=== PATIENT | male | born 1960 | race Caucasian/White ===

== ENCOUNTER 2023-10-16 10:16 | Outpatient (OUT) | payer OTHER, SELFPAY ==
--- NOTE | 2023-10-16 | ECG_ITS ---
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
== END 2023-10-16 10:17 | disposition home or self-care (01) ==
LOC: CARD 10:16
PROVIDERS: PCP Internal Medicine; Visit Provider Internal Medicine
DX: I48.20 Chronic atrial fibrillation, unspecified (principal); R06.02 Shortness of breath
CPT/HCPCS: 93005

== ENCOUNTER 2023-11-21 09:34 | Outpatient (OUT) | payer OTHER, SELFPAY ==
[2023-11-21 10:15] LABS: Basophils Percent Auto 0.4 % (0.2-2.0); Eosinophils Absolute Auto 0.1 10^3/uL (0.0-0.7); Eosinophils Percent Auto 1.3 % (0.9-7.0); Hematocrit 37.9 % (42.0-54.0); Hemoglobin 12.8 g/dL (14.0-18.0); Immature Granulocytes Abs Auto 0.02 10^3/uL (0.00-0.03); Immature Granulocytes Pct Auto 0.3 % (0.0-0.5); Lymphocytes Absolute Auto 1.3 10^3/uL (1.2-3.8); Lymphocytes Percent Auto 16.9 % (20.5-60.0); Mean Corpuscular HGB Conc 33.8 g/dL (29.9-35.2); Mean Corpuscular Hemoglobin 33.3 pg (25.9-34.0); Mean Corpuscular Volume 98.7 fL (80.0-94.0); Mean Platelet Volume 11.1 fL (9.5-13.5); Monocytes Absolute Auto 0.8 10^3/uL (0.3-0.8); Monocytes Percent Auto 10.1 % (1.7-12.0); Neutrophils Absolute Auto 5.6 10^3/uL (1.4-6.5); Platelet Count 168 10^3/uL (150-450); Red Blood Count 3.84 10^6/uL (4.70-6.10); Red Cell Distribution Width 12.7 % (11.0-15.0); White Blood Count 7.8 10^3/uL (4.0-11.0)
[2023-11-21 10:36] LABS: Microalbumin Urine Random 6.1 mg/dL (<=30.0)
[2023-11-21 10:38] LABS: Estimated Average Glucose 131 mg/dL; Glycohemoglobin A1C 6.2 % (4.5-6.2)
[2023-11-21 11:13] LABS: Alanine Aminotransferase 30 U/L (16-63); Albumin Level 3.9 g/dL (3.4-5.0); Alkaline Phosphatase 80 U/L (46-116); Anion Gap 13.8; Aspartate Amino Transferase 13 U/L (15-37); BUN Creatinine Ratio 14.8; Bilirubin Total 0.7 mg/dL (0.2-1.0); Calcium 9.4 mg/dL (8.5-10.1); Chloride 99 mmol/L (98-107); Chol HDL Ratio 3.3; Cholesterol 113 mg/dL (<=200); Estimated GFR (African America >60 (>=60); Estimated GFR (Non-African Ame >60 (>=60); Globulin 3.8 g/dL; Glucose 91 mg/dL (74-106); HDL Cholesterol 34 mg/dL (40-60); Potassium 4.8 mmol/L (3.5-5.1); Sodium 134 mmol/L (136-145); Thyroid Stimulating Hormone 2.274 uIU/mL (0.358-3.740); Total Protein 7.7 g/dL (6.4-8.2); Triglycerides 100 mg/dL (<=150)
[2023-11-21 11:16] LABS: Prostate Specific Antigen Scrn 0.39 ng/mL (<=4.00)
== END 2023-11-21 09:35 | disposition home or self-care (01) ==
LOC: LAB 09:36
PROVIDERS: PCP Internal Medicine; Visit Provider Internal Medicine
DX: Z00.00 Encounter for general adult medical examination without abnormal findings (principal)
CPT/HCPCS: 36415; 80053; 80061; 82043; 83036; 84443; 85025; G0103

== ENCOUNTER 2024-03-18 09:32 | Outpatient (OUT) | payer OTHER, SELFPAY ==
--- OUTSIDE RECORDS SUMMARY | 2024-03-18 09:49 | XMS_ITS | CCD ---
Author Organization [facility] Care Team Providers Care House Registry Rn Name Role Phone Bteoorlando Bonny Unavailable Bonny Raymundo Unavailable Malik MOLINA Attending Unavailable BALL PROVIDER, DELONTE Referring Unavaila ble DO Delonte Tejeda Primary Care Provider [phone] MD Deon Greene Attending Provider [phone] Delonte Tejeda Unavailable NIKHIL, DR BEST Consulting Unavailable BALL, DR BEST Primary Care Unavailable BALL, DR BEST Admitting Unavailable BALL, DR BEST Attending Unavailable BALL, DR BEST Consulting Unavailable BALL, DR BEST Admitting Unavailable BALL, DR BEST Attending Unavailable BALL, DR BEST Primary Care Unavailable BALL, DR BEST Attending Unavailable BALL, DR BEST Primary Care Unavailable BALL, DR BEST Admitting Unavailable BALL, DR BEST Consulting Unavailable BALL, DR BEST Attending Unavailable BALL, DR BEST Primary Care Unavailable BALL, DR BEST Admitting Unavailable BALL, DR BEST Consulting Unavailable BALL, DR BEST Primary Care Unavailable BALL, DR BEST Admitting Unavailable BALL, DR BEST Attending Unavailable BALL, DR BEST Consulting Unavailable REQUEST, DR RICARDO LISTED Admitting Unavaila ble REQUEST, DR RICARDO LISTED Attending Unavaila ble REQUEST, DR RICARDO LISTED Consulting Unavaila ble BALL, DR BEST Primary Care Unavailable REQUEST, NONE LISTED Attending Unavaila ble REQUEST, NONE LISTED Consulting Unavaila ble REQUEST, NONE LISTED Admitting Unavaila ble BALL, DR BEST Primary Care Unavailable REQUEST, DR RICARDO LISTED Admitting Unavaila ble REQUEST, NONE LISTED Attending Unavaila ble BALL, DR BEST Primary Care Unavailable BALL, DR BEST Consulting Unavailable REQUEST, NONE LISTED Admitting Unavaila ble REQUEST, NONE LISTED Attending Unavaila ble BALL, DR BEST Primary Care Unavailable DO Delonte Tejeda Primary Care Provider [phone] GABRIELLA Raymundo Attending Provider DO Delonte Tejeda Primary Care Provider DO Delonte Tejeda Attending Provider Delonte Tejeda Admitting Unavailable Delonte Tejeda Primary Care Unavailable Delonte Tejeda Attending Unavailable Bonny Raymundo Admitting Unavailable Bonny Raymundo Attending Unavailable Delonte Tejeda Primary Care Unavailable KOLBY AMBROCIO Attending Unavailable FELIPE FATIMA Attending Unavailable Medications Current Medications Medication Drug Class(es) Dates Sig (Normalized) Sig (Original) 0.5 ML tirzepatide 5 MG/ML Auto-Injector [Mounjaro] (11 sources) Start: 11-01-2022 inject 2.5 mg by subcutaneous injection every week Mounjaro 2.5 MG/0.5ML 2.5mg Subcutaneous weekly for 28 days Oct, Active 3 ML semaglutide 1.34 MG/ML Pen Injector [Ozempic] (12 sources) Start: 01-29-2023 inject 1 mg by subcutaneous injection every week Ozempic (1 MG/DOSE) 4 MG/3ML 1 MG Subcutaneous weekly Jan, Active Start: 01-29-2023 inject 1 mg by subcu taneous injection every week Ozempic (1 MG/DOSE) 4 MG/3ML 1 MG Subcutaneous weekly for 90 days Jan, Active allopurinol 300 mg oral tablet (20 sources) Xanthine Oxidase Inhibitor Start: 06-27-2021 take 300 mg by mouth once daily Allopurinol Active 300 MG PO Daily June 27, 2021 12:00am amiodarone hydrochloride 200 mg oral tablet (1 source) Antiarrhythmic Start: 03-12-2024 take 200 mg by mouth once daily Amiodarone Active 200 MG PO Daily March 12, 2024 12:00am amLODIPine 5 mg oral tablet (20 sources) Dihydropyridine Calcium Channel Ezequiel Start: 02-23-2024 take 1 tablet by mouth once daily Amlodipine Active 0 .ROUTE .COMPLEX 90 February 23, 2024 1:45pm TAKE 1 TABLET BY MOUTH DAILY Start: 06-27-2021 End: 02-23-2024 take 5 mg by mouth once daily Amlodipine Discontinued 5 MG PO Daily June 27, 2021 12:00am February 23, 2024 1:45pm carvedilol 25 mg oral tablet (20 sources) alpha-Adrenergic Ezequiel, beta-Adrenergic Ezequiel Start: 03-12-2024 take 37.5 mg by mouth twice daily Carvedilol Active 37.5 MG PO Twice daily March 12, 2024 9:44am Start: 03-12-2024 End: 03-12-2024 take 25 mg by mouth twice daily Carvedilol Discontinue d 25 MG PO Twice daily March 12, 2024 9:01am March 12, 2024 9:45am Start: 01-27-2024 End: 03-12-2024 take 37.5 mg by mouth every twelve hours Carvedilol Discontinued 37.5 MG PO Every 12 hours 270 90 January 27, 2024 5:57pm March 12, 2024 9:04am Start: 01-06-2024 End: 01-27-2024 take 1 tablet by mouth twice daily Carvedilol Discontinued 0 .ROUTE .COMPLEX 180 January 06, 2024 4:03pm January 27, 2024 5:58pm TAKE ONE TABLET BY MOUTH TWICE A DAY Start: 12-18-2023 End: 01-06-2024 take 37.5 mg by mouth twice daily Carvedilol Discontinued 37.5 MG PO Twice daily 90 December 18, 2023 7:57pm January 06, 2024 4:03pm Start: 06-27-2021 End: 12-18-2023 take 25 mg by mouth twice daily Carvedilol Discontinue d 25 MG PO Twice daily June 27, 2021 12:00am December 18, 2023 7:58pm take 1 tablet by eriberto th twice daily Carvedilol 25 MG TAKE ONE TABLET BY MOUTH TWICE A DAY Active take 1 tablet by eriberto th every twelve hours Carvedilol 12.5 MG 1 tablet with food Orally Twice a day for 30 day(s) Active Co-Enzyme Q-10 100 MG (20 sources) take 1 capsule by mouth once daily Co-Enzyme Q-10 100 MG 1 capsule with a meal Orally Once a day for 30 day(s) Active etodolac 500 mg oral tablet (13 sources) Nonsteroidal Anti-inflammatory Drug Start: take 1 tablet by mouth every twelve hours Etodolac 500 MG 1 tablet with food Orally Twice a day for 15 days Dec, Active furosemide 40 mg oral tablet (20 sources) Loop Diuretic Start: take 1 tablet by mouth once daily Furosemide Active 0 .ROUTE .COMPLEX 90 February 23, 2024 1:45pm TAKE 1 TABLET BY MOUTH DAILY Start: 06-27-2021 End: 02-23-2024 take 40 mg by mouth once daily Furosemide Discontinued 40 MG PO Daily June 27, 2021 12:00am February 23, 2024 1:45pm 3 ml insulin glargine 100 un t/ml pen injector (20 sources) Insulin Analog Insulin Glargine Solostar 100 unit/mL INJECT 50 UNITS UNDER THE SKIN TWO TIMES A DAY for 90 Active inject 50 [IU] by enciso bcutaneous injection once daily Lantus 100 UNIT/ML 50 units Subcutaneous once a day Active inject 50 [IU] by enciso bcutaneous injection twice daily Lantus 100 UNIT/ML 50 units Subcutaneous twice daily Active inject 0.1 mL by sub cutaneous injection once daily Lantus 100 UNIT/ML 0.1 ml Subcutaneous Once a day Active Insulin Glargine (Lantus U-100 Insulin) 100 unit/mL Solution (4 sources) Start: 06-27-2021 inject 50 [IU] by subcutaneous injection twice daily Insulin Glargine (Lantus U-100 Insulin) 100 unit/mL Solution Active 50 UNIT SUBCUT Twice daily June 27, 2021 12:00am Start: 06-27-2021 inject 50 [IU] by enciso bcutaneous injection twice daily Insulin Glargine (Lantus U-100 Insulin) 100 unit/mL Solution Active 50 UNIT SUBCUT Twice daily June 26, 2021 11:00pm lisinopril 40 mg oral tablet (20 sources) Angiotensin Converting Enzyme Inhibitor Start: 06-27-2021 take 40 mg by mouth once daily Lisinopril Active 40 MG PO Daily June 27, 2021 12:00am ozempic (1 mg/dose) 4 mg/3ml solution pen-injector (5 sources) Start: 01-29-2023 inject 1 mg by subcutaneous injection every week Ozempic (1 MG/DOSE) 4 MG/3ML 1 MG Subcutaneous weekly Jan, Active potassium chloride 20 meq extended release oral tablet (20 sources) Start: 06-27-2021 take 20 mEq by mouth once daily Potassium Chloride Active 20 MEQ PO Daily June 27, 2021 12:00am Potassium Chlori de 20 MEQ 1 packet Orally Once a day for 30 day(s) Active pravastatin sodium 40 mg oral tablet (20 sources) HMG-CoA Reductase Inhibitor Start: 02-23-2024 take 1 tablet by mouth once daily in the evening Pravastatin Active 0 .ROUTE .COMPLEX February 23, 2024 1:45pm TAKE ONE TABLET BY MOUTH EVERY EVENING Start: 06-27-2021 End: 02-23-2024 take 40 mg by mouth once daily Pravastatin Discontinue d 40 MG PO Daily June 27, 2021 12:00am February 23, 2024 1:45pm rivaroxaban 20 mg oral tablet (20 sources) Factor Xa Inhibitor Start: 06-27-2021 take 1 tablet by mouth once daily Rivaroxaban (Xarelto) 20 mg Tablet Active 20 MG PO Daily June 27, 2021 12:00am Xarelto Active 0.25 mg, 0.5 mg dose 1.5 ml semaglutide 1.34 mg/ml pen injector (20 sources) Start: 11-25-2022 Ozempic (0.25 or 0.5 MG/DOSE) 2 MG/1.5ML 0.25mg Subcutaneous weekly for 28 days Nov, Active Ozempic (0.25 or 0.5 MG/DOSE) 2 MG/1.5ML 0.5mg Subcutaneous weekly for 28 days Active Semaglutide (2 sources) Start: 02-06-2024 inject 1 mg by subcutaneous injection every week Semaglutide (Ozempic) 1 mg/dose (4 mg/3 mL) pen injector Active 1 MG SUBCUT every week February 06, 2024 5:39pm Start: 02-04-2024 End: 02-06-2024 inject 1 mg by subcutaneous injection every week Semaglutide (Ozempic) 1 mg/dose (4 mg/3 mL) pen injector Discontinued 1 MG SUBCUT every week February 04, 2024 12:00am February 06, 2024 5:39pm tiZANidine 2 mg oral tablet (20 sources) Central alpha-2 Adrenergic Agonist Start: 01-09-2023 take 1 tablet by mouth once at bedtime as needed for pain tiZANidine HCl 2 MG 1 tablet as needed Orally q HS as needed for pain and stiffness for 14 days Jul, Active ubiquinol 100 mg oral capsule (1 source) Start: 03-12-2024 take 1 capsule by mouth once daily Coq10 (Ubiquinol) (Qunol Ilir Coq10) 100 mg capsule Active 100 MG PO Daily March 12, 2024 12:00am Vitamin B-12 1000 MCG (4 sources) take 1 tablet by mouth once daily Vitamin B-12 1000 MCG 1 tablet Orally Once a day for 30 day(s) Active vitamin b12 1 mg oral tablet (20 sources) Vitamin B12 take 1 tablet by mouth every twenty-four hours Vitamin B-12 1000 MCG 1 tablet Orally Once a day for 30 day(s) Active take 1 tablet by eriberto th every twenty-four hours Vitamin B-12 1000 MCG 1 tablet Orally Once a day for 30 day(s) Active Vitamin D3 2000 UNIT (20 sources) Vitamin D3 2000 UNIT as directed Orally Active warfarin sodium 10 mg oral tablet (1 source) Vitamin K Antagonist take 1 tablet by mouth every twenty-four hours Warfarin Sodium 10 MG 1 tablet Orally Once a day for 30 day(s) Active Completed/Discontinued Medications Medication Drug Class(es) Dates Sig (Normalized) Sig (Original) flecainide acetate 100 mg oral tablet (11 sources) Antiarrhythmic Start: 06-27-2021 End: 10-07-2022 take 100 mg by mouth every twelve hours Flecainide Discontinued 100 MG PO Q12H June 27, 2021 12:00am October 07, 2022 9:41am metoprolol tartrate 50 mg oral tablet (9 sources) beta-Adrenergic Ezequiel Start: 06-27-2021 End: 10-07-2022 take 50 mg by mouth twice daily Metoprolol Tartrate Discontinued 50 MG PO Twice daily June 27, 2021 12:00am October 07, 2022 9:41am SITagliptin 100 mg oral tablet (20 sources) Dipeptidyl Peptidase 4 Inhibitor Start: 06-27-2021 End: 02-04-2024 take 1 tablet by mouth once daily Sitagliptin Phosphate (Januvia) 100 mg Tablet Discontinued 100 MG PO Daily June 27, 2021 12:00am February 04, 2024 8:14pm Problems Active Problems Problem Classification Problem Date Documented Date Episodic/Chronic Allergic reactions (20 sources) Idiopathic urticaria; Translations: [Idiopathic urticaria] Onset: 01-04-2016 Episodic Cardiac dysrhythmias (20 sources) Paroxysmal atrial fibrillation; Translations: [Paroxysmal atrial fibrillation] 03-10-2024 Chronic Deficiency and other anemia (20 sources) Anemia; Translations: [Anemia, unspecified] Episodic Diabetes mellitus with complications (20 sources) Type 2 diabetes mellitus; Translations: [Type 2 diabetes mellitus with hyperglycemia] Onset: 09-05-2015 Chronic Diabetes mellitus without complication (7 sources) Type 2 diabetes mellitus without complication; Translations: [Diabetes mellitus without mention of complication, type II or unspecified type, not stated as uncontrolled] Onset: 12-16-2023 Chronic Disorders of lipid metabolism (20 sources) Pure hypercholesterolemia; Translations: [Familial hypercholesterolemia] Onset: 01-04-2016 Chronic Essential hypertension (20 sources) Essential hypertension; Translations: [Essential (primary) hypertension] Onset: 12-17-2023 Chronic Fluid and electrolyte disorders (20 sources) Hypokalemia; Translations: [Hypokalemia] Episodic Gout and other crystal arthropathies (20 sources) Idiopathic gout, right wrist; Translations: [Primary chronic gout without tophus of wrist] Chronic Hyperplasia of prostate (5 sources) Benign prostatic hypertrophy with outflow obstruction; Translations: [Hypertrophy (benign) of prostate with urinary obstruction and other lower urinary tract symptoms [LUTS]] Onset: 06-04-2017 Chronic Joint disorders and dislocations; trauma-related (5 sources) Derangement of anterior horn of medial meniscus; Translations: [Derangement of anterior horn of medial meniscus] Onset: 08-08-2016 Chronic Osteoarthritis (20 sources) Bilateral arthritis of knees; Translations: [Bilateral primary osteoarthritis of knee] Chronic Other aftercare (20 sources) Long-term current use of insulin; Translations: [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 service 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] Episodic Other aftercare (6 sources) 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 service 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; Translations: [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 service 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] Onset: 12-16-2023 Episodic Other and unspecified benign neoplasm (20 sources) History of polyp of colon; Translations: [Personal history of colonic polyps] Episodic Other and unspecified benign neoplasm (20 sources) Benign neoplasm of colon; Translations: [Benign neoplasm of colon, unspecified] Episodic Other and unspecified benign neoplasm (3 sources) Benign neoplasm of colon, unspecified; Translations: [Tubulovillous adenoma of colon] Episodic Other diseases of veins and lymphatics (20 sources) Peripheral venous insufficiency; Translations: [Venous insufficiency (chronic) (peripheral)] Episodic Other diseases of veins and lymphatics (7 sources) Venous insufficiency (chronic) (peripheral); Translations: [Venous (peripheral) insufficiency, unspecified] Episodic Other diseases of veins and lymphatics (1 source) Venous insufficiency of leg; Translations: [Venous insufficiency (chronic) (peripheral)] 03-10-2024 Episodic Other non-traumatic joint disorders (2 sources) Pain in left hip Episodic Other nutritional; endocrine; and metabolic disorders (20 sources) Morbid obesity; Translations: [Morbid (severe) obesity due to excess calories] Chronic Other nutritional; endocrine; and metabolic disorders (2 sources) Morbid (severe) obesity due to excess calories Chronic Other nutritional; endocrine; and metabolic disorders (13 sources) Severe obesity; Translations: [Morbid (severe) obesity due to excess calories] Chronic Other nutritional; endocrine; and metabolic disorders (18 sources) Body mass index 40+ - severely obese; Translations: [Body mass index (BMI) 45.0-49.9, adult] Onset: 01-04-2016 Chronic Other nutritional; endocrine; and metabolic disorders (5 sources) Obesity; Translations: [Obesity, unspecified] Chronic Other screening for suspected conditions (not mental disorders or infectious disease) (2 sources) Encounter for screening for malignant neoplasm of prostate Episodic Other upper respiratory infections (1 source) Acute upper respiratory infection, unspecified Episodic Residual codes; unclassified (20 sources) Obstructive sleep apnea syndrome; Translations: [Obstructive sleep apnea (adult) (pediatric)] Onset: 06-04-2022 Chronic Residual codes; unclassified (13 sources) Obstructive sleep apnea (adult) (pediatric); Translations: [Obstructive sleep apnea (adult)(pediatric)] Onset: 06-05-2022 Chronic Spondylosis; intervertebral disc disorders; other back problems (20 sources) Lumbar spondylosis; Translations: [Spondylosis without myelopathy or radiculopathy, lumbar region] Onset: 11-29-2016 Chronic Sprains and strains (11 sources) Neck sprain; Translations: [Strain of muscle, fascia and tendon at neck level, initial encounter] Onset: 08-11-2017 Episodic Unclassified (5 sources) Longstanding persistent atrial fibrillation; Translations: [Longstanding persistent atrial fibrillation] Onset: 12-17-2023 Unclassified (1 source) Chronic atrial fibrillation, unspecified; Translations: [Chronic atrial fibrillation, unspecified] Onset: 10-17-2023 Unclassified (1 source) Pain in left hip; Translations: [Pain in left hip] Onset: 06-05-2023 Viral infection (20 sources) Herpes zoster with complication; Translations: [Zoster with other complications] Episodic Past or Other Problems Problem Classification Problem Date Documented Da te Episodic/Chronic Cardiac dysrhythmias (5 sources) Palpitations; Translations: [Palpitations] Onset: 05-13-2014 Episodic Deficiency and other anemia (4 sources) Anemia, unspecified; Translations: [ANEMIA UNSPECIFIED] Onset: 03-15-2022 Episodic Immunizations and screening for infectious disease (1 source) Contact with and (suspected) exposure to other viral communicable diseases Onset: 08-12-2021 Resolved: 08-12-2021 Episodic Joint disorders and dislocations; trauma-related (5 sources) Current tear of medial cartilage AND/OR meniscus of knee; Translations: [Peripheral tear of medial meniscus, current injury, right knee, initial encounter] Onset: 01-14-2018 Episodic Joint disorders and dislocations; trauma-related (5 sources) Current tear of medial cartilage AND/OR meniscus of knee; Translations: [Peripheral tear of medial meniscus, current injury, left knee, initial encounter] Onset: 01-14-2018 Episodic Other and unspecified benign neoplasm (5 sources) Lipoma of skin; Translations: [Lipoma of other skin and subcutaneous tissue] Onset: 05-17-2015 Episodic Other ear and sense organ disorders (5 sources) Impacted cerumen; Translations: [Impacted cerumen] Onset: 06-04-2017 Episodic Other non-traumatic joint disorders (10 sources) Arthralgia of the lower leg; Translations: [Pain in left knee] Onset: 08-08-2016 Episodic Residual codes; unclassified (5 sources) Insomnia; Translations: [Insomnia, unspecified] Onset: 08-01-2014 Episodic Screening and history of mental health and substance abuse codes (5 sources) History of tobacco use; Translations: [Personal history of tobacco use, presenting hazards to health] Onset: 12-05-2017 Episodic Spondylosis; intervertebral disc disorders; other back problems (11 sources) Pain in thoracic spine; Translations: [Low back pain] Onset: 07-24-2015 Episodic Unclassified (1 source) Cough R05.9 Onset: 05-19-2022 Resolved: 05-19-2022 Unclassified (4 sources) Chronic atrial fibrillation, unspecified Viral infection (1 source) COVID-19 Onset: 05-19-2022 Resolved: 05-19-2022 Results Test Name Value Interpretation Reference Range Facility Office Visiton 01-20-2024 Follow-up visit [id number] Salomón Rush 1960 M Date Provider Department Center 01/20/2024 FELIPE COWAN DUDLEY Pérez Family History Problem Relation Age of Onset Cancer Mother Heart disease Mother Cancer Father Family Status - Relation Status Age at Mother Father Level of Service:50732 ID OFFICE/OUTPATIENT NEW MODERATE MDM 45 MINUTES Reason for Visit and Comments: Follow-up [504952] Normal [facility] 29on 12-17-2023 29 Addended by: BETSY PABLO on: 12/17/2023 10:20 AM Modules accepted: Orders Normal [facility] Office Visiton 12-17-2023 Follow-up visit [id number] Salomón Rush 1960 M Date Provider Department Center 12/17/2023 KOLBY ROSS DUDLEY Pérez Family History Problem Relation Age of Onset Cancer Mother Heart disease Mother Cancer Father Family Status - Relation Status Age at Mother Father Level of Service:[id number] ID OFFICE/OUTPATIENT NEW MODERATE MDM 45 MINUTES Normal [facility] ECH echo transthoracicon ECH echo transthoracic [facility] [place] [address] Echocardiogram Signed Patient: Salomón Rush MR#: [id number] 90 : 1960 Acct:[id number] Age/Sex: 62 / M ADM Date: 10/17/23 Loc: Room: Type: [facility] Attending Dr: Delonte Tejeda DO Ordering Provider: Delonte Tejeda DO Date of Service: 10/17/23/ ECH/ECH echo transthoracic: Chronic Afib. SOB. Copies to: DO Ortiz Coronado MD Weight: 320 lb Performed By: Patricia Gillis RDCS BSA: 2.5 m2 BP: 142/82 mmHg Reason For Study: Chronic Afib. SOB. History: HTN. HLD. DM. ELENITA. Afib. Family history: Mother CABG, Father-aortic aneursym Interpretation Summary The left ventricular size and thickness are normal. The LV ejection fraction is low normal . A variety of Doppler measurements indicate pseudonormalized left ventricular relaxation, which is associated with grade II/IV or mild to moderate diastolic dysfunction. No regional wall motion abnormalities noted. The left atrial volume is moderately increased. The aortic valve is mildly sclerotic Trace aortic regurgitation. There is mild to moderate mitral regurgitation. Doppler findings do not suggest pulmonary hypertension. The patient was in atrial fibrillation through out the study. There is no comparison study available. Procedure/Quality: A two-dimensional transthoracic echocardiogram with color flow, Doppler and injection of contrast agent Definity was performed. The study was technically limited with all images being suboptimal in quality. Images were not obtained from all of the standard acoustic windows due to the limited scope of the study. Left Ventricle: The left ventricular size and thickness are normal. The LV ejection fraction is low normal . A variety of Doppler measurements indicate pseudonormalized left ventricular relaxation, which is associated with grade II/IV or mild to moderate diastolic dysfunction. No regional wall motion abnormalities noted. Left Atrium: The left atrial volume is moderately increased. Right Atrium: The right atrium appears normal in size. Right Ventricle: The right ventricular size, thickness and function are normal. Aortic Valve: The aortic valve is mildly sclerotic. The aortic valve opens well. No hemodynamically significant valvular aortic stenosis. Trace aortic regurgitation. Mitral Valve: There is mild mitral annular calcification. The mitral valve is mildly sclerotic. There is mild to moderate mitral regurgitation. Tricuspid Valve: The tricuspid valve is normal in structure and function. Doppler findings do not suggest pulmonary hypertension. Pulmonic Valve: The pulmonic valve is not well visualized. Arteries: The aortic root is normal size. The aortic arch was visualized and no abnormalities were seen. Pericardium/Pleura: No pericardial effusion seen. There is no pleural effusion. IVC/Hepatic Viens: The inferior vena cava is normal in size, with a normal collapsibility index. Measurements with Normals IVSd: 1.0 cm (0.7-1.1 cm)LVIDd: 5.1 cm (3.7-5.4 cm) LVPWd: 0.97 cm (0.7-1.1 cm)LVIDs: 3.3 cm (2.3-3.6 cm) LA dimension: 5.0 cm (2.3-4.0 cm)Ao root diam: 2.6 cm(2.0-3.6 cm) asc Aorta Diam: 3.0 cm(2.1-3.4cm) Doppler with Normals LV V1 max: 157.5 cm/sec (0.7-1.7m/s)MV E max thomas: 103.0 cm/sec(0.8-1.3m/s) MV A max thomas: 34.6 cm/sec(0.0-0.0m/s) MV E/A: 3.0 (<1.5) MMode/2D Measurements Calculations RVDd: 4.5 cm FS: 35.4 % Ao root area: LVOT diam: 1.7 cm TAPSE: 1.9 cm EDV(Teich): 5.5 cm2 LVOT area: 2.2 cm2 RV S Thomas: 123.7 ml 14.4 cm/sec ESV(Teich): 44.0 ml EF(Teich): 64.5 % __ LVLd ap4: 8.4 cm SV(MOD-sp4): LAV(MOD-sp4): LA A2 area: 20.3 cm2 EDV(MOD-sp4): 49.6 ml 58.8 ml 79.4 ml LAV(MOD-sp2): LA A4 area: 22.1 cm2 LVLs ap4: 7.3 cm 55.7 ml LA length (vol): ESV(MOD-sp4): 6.7 cm 29.8 ml LA vol: 56.9 ml EF(MOD-sp4): 62.5 % LA vol index: 22.3 ml/m2 Doppler Measurements Calculations MV dec time: E/E' lat: 8.9 MV dec slope: Ao V2 max: 0.24 sec E/E' med: 10.9 146.6 cm/sec 423.3 cm/sec2 Ao max P.6 mmHg Ao mean P.7 mmHg Ao V2 mean: 102.7 cm/sec Ao V2 VTI: 24.1 cm TEE(I,D): 2.8 cm2 TEE(V,D): 2.3 cm2 __ LV V1 max PG: RAP systole: 9.9 mmHg 8.0 mmHg LV V1 mean P.5 mmHg LV V1 mean: 112.5 cm/sec LV V1 VTI: 30.6 cm Transcribed By: SCV Performed At: 10/17/23 0746 Signed By: Ortiz Singletary MD 10/17/23 1304 Normal [facility] XR hip LT min 2V(w/wo pelvis )*on 06-05-2023 XR hip LT min 2V(w/wo pelvis)* [facility] [place] [address] XRay Report Signed Patient: Salomón Rush MR#: [id number] 90 : 1960 Acct:[id number] Age/Sex: 62 / M ADM Date: 06/05/23 Loc: [facility] Room: Type: [facility] Attending Dr: Bonny Raymundo APRN Copies to: Bonny Raymundo APRN Ordering Provider: Bonny Raymundo APRN Date of Service: 06/05/23 XR/XR hip LT min 2V(w/wo pelvis)*: Left hip pain XR hip LT min 2V(w/wo pelvis)* 06/05/2023 11:57 AM SIGNS AND SYMPTOMS: Left hip pain PROTOCOL: Frontal radiograph of the pelvis with frontal and frog-leg views of the left hip COMPARISON: None FINDINGS: There is mild narrowing of the joint spaces of the hips. Degenerative changes are noted in the lumbar spine and sacroiliac joints. The bony ring of the pelvis is intact. There is no fracture or dislocation. Vascular calcifications are present. XR/XR hip LT min 2V(w/wo pelvis)* IMPRESSION: No fracture or dislocation. Degenerative changes are noted in the lumbar spine and sacroiliac joints. Impression dictated by: Calvin Thibodeaux M.D.06/05/2023 12:25 PM Dictation Location: [facility] Transcribed By: [facility] 06/05/23 1225 Dictated By: Calvin Thibodeaux II, MD 06/05/23 1223 Signed By: 06/05/23 1225 Normal [facility] XR hip LT min 2V(w/wo pelvis)* [facility] [employer] Other XR hip LT min 2V(w/wo pelvis)* [facility] [place] [employer] Other XR hip LT min 2V(w/wo pelvis)* [address] [place] [address] [employer] Other XR hip LT min 2V(w/wo pelvis)* [place] [address] [employer] Other XR hip LT min 2V(w/wo pelvis)* XRay Report [employer] Other XR hip LT min 2V(w/wo pelvis)* Signed [employer] Other XR hip LT min 2V(w/wo pelvis)* Patient: Salomón Rush MR#: [id number] [employer] Other XR hip LT min 2V(w/wo pelvis)* 90 [employer] Other XR hip LT min 2V(w/wo pelvis)* : 1960 Acct:[id number] [employer] Other XR hip LT min 2V(w/wo pelvis)* Age/Sex: 62 / M ADM Date: 06/05/23 [employer] Other XR hip LT min 2V(w/wo pelvis)* Loc: XDUCLY Room: Type: [facility] [employer] Other XR hip LT min 2V(w/wo pelvis)* Attending Dr: Bonny Raymundo APRN [employer] Other XR hip LT min 2V(w/wo pelvis)* Copies to: Bonny RaymundoGABRIELLA [employer] Other XR hip LT min 2V(w/wo pelvis)* Ordering Provider: Bonny Raymundo APRN [employer] Other XR hip LT min 2V(w/wo pelvis)* Date of Service: 06/05/23 [employer] Other XR hip LT min 2V(w/wo pelvis)* XR/XR hip LT min 2V(w/wo pelvis)*: Left hip pain [employer] Other XR hip LT min 2V(w/wo pelvis)* XR hip LT min 2V(w/wo pelvis)* 06/05/2023 11:57 AM [employer] Other XR hip LT min 2V(w/wo pelvis)* SIGNS AND SYMPTOMS: Left hip pain [employer] Other XR hip LT min 2V(w/wo pelvis)* PROTOCOL: Frontal radiograph of the pelvis with frontal and frog-leg views of the left hip [employer] Other XR hip LT min 2V(w/wo pelvis)* COMPARISON: None [employer] Other XR hip LT min 2V(w/wo pelvis)* FINDINGS: [employer] Other XR hip LT min 2V(w/wo pelvis)* There is mild narrowing of the joint spaces of the hips. Degenerative changes are noted in the [employer] Other XR hip LT min 2V(w/wo pelvis)* lumbar spine and sacroiliac joints. The bony ring of the pelvis is intact. There is no fracture or [employer] Other XR hip LT min 2V(w/wo pelvis)* dislocation. Vascular calcifications are present. [employer] Other XR hip LT min 2V(w/wo pelvis)* XR/XR hip LT min 2V(w/wo pelvis)* [employer] Other XR hip LT min 2V(w/wo pelvis)* IMPRESSION: [employer] Other XR hip LT min 2V(w/wo pelvis)* No fracture or dislocation. [employer] Other XR hip LT min 2V(w/wo pelvis)* Degenerative changes are noted in the lumbar spine and sacroiliac joints. [employer] Other XR hip LT min 2V(w/wo pelvis)* Impression dictated by: Calvin Thibodeaux M.D.06/05/2023 12:25 PM [employer] Other XR hip LT min 2V(w/wo pelvis)* Dictation Location: [facility] [employer] Other XR hip LT min 2V(w/wo pelvis)* Transcribed By: NORMA 06/05/23 [facility] [employer] Other XR hip LT min 2V(w/wo pelvis)* Dictated By: Calvin Thibodeaux II, MD 06/05/23 [facility] [employer] Other XR hip LT min 2V(w/wo pelvis)* Signed By: [employer] Other XR hip LT min 2V(w/wo pelvis)* 06/05/23 1225 [employer] Other CBC AUTO DIFFon 02-21-2023 BASO # 0.1 103/ul Normal 0.0-0.1 [facility] Comment on above: Performed By: #### L IPID, T4, TSH, CMP #### [facility] [address] [address] [address] Rena Barone Basophils/100 WBC (Bld) 0.4 % Normal 0.2-2.0 [facility] Comment on above: Performed By: #### L IPID, T4, TSH, CMP #### [facility] [address] [place] [address] Dr. Rena Barone EO # 0.4 103/ul Normal 0.0-0.7 [facility] Comment on above: Performed By: #### L IPID, T4, TSH, CMP #### [facility] [address] [place] [address] Dr. Rena Barone Eosinophils/100 WBC (Bld) 3.1 % Normal 0.9-7.0 [facility] Comment on above: Performed By: #### L IPID, T4, TSH, CMP #### [facility] [address] [place] [address] Dr. Rena Barone Erythrocyte distribution width (RBC) [Ratio] 12.5 % Normal 11.0-15.0 [facility] Comment on above: Performed By: #### L IPID, T4, TSH, CMP #### [facility] [address] [place] [address] Dr. Rena Barone Hematocrit (Bld) [Volume fraction] 38.9 % Critically low 42.0-54.0 [facility] Comment on above: Performed By: #### L IPID, T4, TSH, CMP #### [facility] [address] [place] [address] Dr. Rena Barone Hemoglobin (Bld) [Mass/Vol] 13.2 g/dL Critically low 14.0-18.0 [facility] Comment on above: Performed By: #### L IPID, T4, TSH, CMP #### [facility] [address] [place] [address] Dr. Rena Barone IG # 0.05 10e3/ul Critically high 0.00-0.03 [facility] Comment on above: Performed By: #### L IPID, T4, TSH, CMP #### [facility] [address] [place] [address] Dr. Rena Barone IG % 0.4 % Normal 0.0-0.5 [facility] Comment on above: Performed By: #### L IPID, T4, TSH, CMP #### [facility] [address] [place] [address] Dr. Rena Barone LYMPH # 3.2 103/ul Normal 1.2-3.8 [facility] Comment on above: Performed By: #### L IPID, T4, TSH, CMP #### [facility] [address] [place] [address] Dr. Rena Barone Lymphocytes/100 WBC (Bld) 28.6 % Normal 20.5-60.0 [facility] Comment on above: Performed By: #### L IPID, T4, TSH, CMP #### [facility] [address] [place] [address] Dr. Rena Barone MANUAL DIFF REQ NO Normal [facility] Comment on above: Performed By: #### L IPID, T4, TSH, CMP #### [facility] [address] [place] [address] Dr. Rena Barone MCH (RBC) [Entitic mass] 33.7 pg Normal 25.9-34.0 [facility] Comment on above: Performed By: #### L IPID, T4, TSH, CMP #### [facility] [address] [place] [address] Dr. Rena Barone MCHC (RBC) [Mass/Vol] 33.9 g/dL Normal 29.9-35.2 [facility] Comment on above: Performed By: #### L IPID, T4, TSH, CMP #### [facility] [address] [place] [address] Dr. Rena Barone MCV (RBC) [Entitic vol] 99.2 fL Critically high 80.0-94.0 [facility] Comment on above: Performed By: #### L IPID, T4, TSH, CMP #### [facility] [address] [place] [address] Dr. Rena Barone MONO # 1.0 103/ul Critically high 0.3-0.8 [facility] Comment on above: Performed By: #### L IPID, T4, TSH, CMP #### [facility] [address] [place] [address] Dr. Rena Barone Monocytes/100 WBC (Bld) 8.8 % Normal 1.7-12.0 [facility] Comment on above: Performed By: #### L IPID, T4, TSH, CMP #### [facility] [address] [address] [address] Rena Barone NEUT # 6.6 103/ul Critically high 1.4-6.5 [facility] Comment on above: Performed By: #### L IPID, T4, TSH, CMP #### [facility] [address] [place] [address] Dr. Rena Barone Neutrophils/100 WBC (Bld) 58.7 % Normal 43.0-75.0 [facility] Comment on above: Performed By: #### L IPID, T4, TSH, CMP #### [facility] [address] [place] [address] Dr. Rena Barone Platelet mean volume (Bld) [Entitic vol] 11.2 fL Normal 9.5-13.5 [facility] Comment on above: Performed By: #### L IPID, T4, TSH, CMP #### [facility] [address] [place] [address] Dr. Rena Barone PLT 202 103/ul Normal 150-450 [facility] Comment on above: Performed By: #### L IPID, T4, TSH, CMP #### [facility] [address] [place] [address] Dr. Rena Barone RBC 3.92 106/ul Critically low 4.70-6.10 [facility] Comment on above: Performed By: #### L IPID, T4, TSH, CMP #### [facility] [address] [place] [address] Dr. Rena Barone WBC 11.3 103/ul Critically high 4.0-11.0 [facility] Comment on above: Performed By: #### L IPID, T4, TSH, CMP #### [facility] [address] [place] [address] Dr. Rena Barone LIPID PROFILEon 02-21-2023 CHOL-HDL RATIO NORM SEE BELOW Normal [facility] Comment on above: Result Comment: 3.3 - 4.4 LOW RISK 4.4 - 7.1 AVERAGE RISK 7.1 - 11.0 MODERATE RISK >11.0 HIGH RISK Performed By: #### L IPID, T4, TSH, CMP #### [facility] [address] [place] [address] Dr. Rena Barone Cholesterol [Mass/Vol] 127 mg/dL Normal <=200 [facility] Comment on above: Performed By: #### L IPID, T4, TSH, CMP #### [facility] [address] [place] [address] Dr. Rena Barone Cholesterol in HDL [Mass/Vol] 24 mg/dL Critically low 40-60 [facility] Comment on above: Performed By: #### L IPID, T4, TSH, CMP #### [facility] [address] [place] [address] Dr. Rena Barone Cholesterol in LDL [Mass/Vol] 58.4 mg/dL Normal [facility] Comment on above: Performed By: #### L IPID, T4, TSH, CMP #### [facility] [address] [address] [address] Rena Barone Cholesterol.total/Ch olesterol in HDL [Mass ratio] 5.3 {ratio} Normal [facility] Comment on above: Performed By: #### L IPID, T4, TSH, CMP #### [facility] [address] [place] [address] Dr. Rena Barone HDL NORMAL > or = 60 mg/dl - LOW CARDIOVASCULAR RISK <40 mg/dl - HIGH CARDIOVASCULAR RISK Normal [facility] Comment on above: Performed By: #### L IPID, T4, TSH, CMP #### [facility] [address] [place] [address] Dr. Rena Barone LDL CALC NORMAL SEE BELOW Normal [facility] Comment on above: Result Comment: <100 mg/dl OPTIMAL 100 - 129 mg/dl NEAR OR ABOVE OPTIMAL 130 - 159 mg/dl BORDERLINE HIGH 160 - 189 mg/dl HIGH >190 mg/dl VERY HIGH Performed By: #### L IPID, T4, TSH, CMP #### [facility] [address] [address] [address] Rena Barone Triglyceride [Mass/Vol] 223 mg/dL Critically high <=150 [facility] Comment on above: Performed By: #### L IPID, T4, TSH, CMP #### [facility] [address] [place] [address] Dr. Rena Barone VLDL CALC 44.6 mg/dL Normal [facility] Comment on above: Performed By: #### L IPID, T4, TSH, CMP #### [facility] [address] [address] [address] Rena Barone PROF 14(COMP METB)on 023 Albumin [Mass/Vol] 3.8 g/dL Normal 3.4-5.0 [facility] Comment on above: Performed By: #### L IPID, T4, TSH, CMP #### [facility] [address] [address] [address] Rena Barone Albumin/Globulin [Mass ratio] 0.9 {ratio} Normal [facility] Comment on above: Performed By: #### L IPID, T4, TSH, CMP #### [facility] [address] [place] [address] Dr. Rena Barone ALP [Catalytic activity/Vol] 99 U/L Normal 46-116 [facility] Comment on above: Performed By: #### L IPID, T4, TSH, CMP #### [facility] [address] [address] [address] Rena Barone ALT [Catalytic activity/Vol] 31 U/L Normal 16-63 [facility] Comment on above: Performed By: #### L IPID, T4, TSH, CMP #### [facility] [address] [place] [address] Dr. Rena Barone Anion gap [Moles/Vol] 10.3 mmol/L Normal [facility] Comment on above: Performed By: #### L IPID, T4, TSH, CMP #### [facility] [address] [place] [address] Dr. Rena Barone AST [Catalytic activity/Vol] 23 U/L Normal 15-37 [facility] Comment on above: Performed By: #### L IPID, T4, TSH, CMP #### [facility] [address] [address] [address] Rena Barone Bilirubin [Mass/Vol] 0.5 mg/dL Normal 0.2-1.0 [facility] Comment on above: Performed By: #### L IPID, T4, TSH, CMP #### [facility] [address] [place] [address] Dr. Rena Barone Calcium [Mass/Vol] 9.3 mg/dL Normal 8.5-10.1 [facility] Comment on above: Performed By: #### L IPID, T4, TSH, CMP #### [facility] [address] [place] [address] Dr. Rena Barone Chloride [Moles/Vol] 100 mmol/L Normal 98-107 [facility] Comment on above: Performed By: #### L IPID, T4, TSH, CMP #### [facility] [address] [place] [address] Dr. Rena Barone CO2 [Moles/Vol] 25.9 mmol/L Normal 21.0-32.0 [facility] Comment on above: Performed By: #### L IPID, T4, TSH, CMP #### [facility] [address] [place] [address] Dr. Rena Barone Creatinine [Mass/Vol] 1.34 mg/dL Critically high 0.70-1.30 [facility] Comment on above: Performed By: #### L IPID, T4, TSH, CMP #### [facility] [address] [address] [address] Rena Barone EGFR-AF RWANDAN >60 Normal >=60 [facility] Comment on above: Performed By: #### L IPID, T4, TSH, CMP #### [facility] [address] [place] [address] Dr. Rena Barone EGFR-NON AF RWANDAN 54 mL/min/1.73m2 Critically low >=60 [facility] Comment on above: Performed By: #### L IPID, T4, TSH, CMP #### [facility] [address] [address] [address] Rena Barone Globulin (S) [Mass/Vol] 4.1 g/dL Normal [facility] Comment on above: Performed By: #### L IPID, T4, TSH, CMP #### [facility] [address] [place] [address] Dr. Rena Barone Glucose [Mass/Vol] 108 mg/dL Critically high 74-106 [facility] Comment on above: Performed By: #### L IPID, T4, TSH, CMP #### [facility] [address] [place] [address] Dr. Rena Barone Potassium [Moles/Vol] 4.2 mmol/L Normal 3.5-5.1 [facility] Comment on above: Performed By: #### L IPID, T4, TSH, CMP #### [facility] [address] [place] [address] Dr. Rena Barone Protein [Mass/Vol] 7.9 g/dL Normal 6.4-8.2 [facility] Comment on above: Performed By: #### L IPID, T4, TSH, CMP #### [facility] [address] [place] [address] Dr. Rena Barone Sodium [Moles/Vol] 132 mmol/L Critically low 136-145 Th [facility] Comment on above: Performed By: #### L IPID, T4, TSH, CMP #### [facility] [address] [place] [address] Dr. Rena Barone Urea nitrogen [Mass/Vol] 30.0 mg/dL Critically high 7.0-18.0 [facility] Comment on above: Performed By: #### L IPID, T4, TSH, CMP #### [facility] [address] [place] [address] Dr. Rena Barone Urea nitrogen/Creatinine [Mass ratio] 22.4 mg/mg Normal [facility] Comment on above: Performed By: #### L IPID, T4, TSH, CMP #### [facility] [address] [address] [address] Rena Barone T4on 02-21-2023 T4 [Mass/Vol] 5.20 ug/dL Normal 4.50-12.10 [facility] Comment on above: Performed By: #### L IPID, T4, TSH, CMP #### [facility] [address] [address] [address] Rena Barone TSHon 02-21-2023 TSH 2.379 uIU/mL Normal 0.358-3.740 [facility] Comment on above: Performed By: #### L IPID, T4, TSH, CMP #### [facility] [address] [address] [address] Rena Barone GLYCOHEMOGLOBIN A1Con 2022 ADA RECOMMENDATION SEE BELOW Normal [facility] Comment on above: Result Comment: ADA RECOMMENDED LIMIT 4.0 - 6.0 ADA THERAPEUTIC TARGET < 7.0 ACTION SUGGESTED > 7.0 Performed By: #### L IPID, T4, TSH, CMP #### [facility] [address] [address] [address] Rena Barone Glucose [Mass/Vol] 169 mg/dL Normal [facility] Comment on above: Performed By: #### L IPID, T4, TSH, CMP #### [facility] [address] [address] [address] Rena Barone HbA1c (Bld) [Mass fraction] 7.5 % Critically high 4.5-6.2 [facility] Comment on above: Performed By: #### L IPID, T4, TSH, CMP #### [facility] [address] [address] [address] Rena Barone Glucose Glucometer (BldC) [M ass/Vol]Ordered By: Deon Greene on 10-07-2022 Glucose [Mass/Vol] 170 mg/dL [facility] Comment on above: Random Glucose Refer ence Range is dependent on time and content of last meal. Glucose of more than 200 mg/dL in a nonstressed, ambulatory subject supports the diagnosis of Diabetes Mellitus. GLYCOHEMOGLOBIN A1Con 2021 ADA RECOMMENDATION SEE BELOW Normal [facility] Comment on above: Result Comment: ADA RECOMMENDED LIMIT 4.0 - 6.0 ADA THERAPEUTIC TARGET < 7.0 ACTION SUGGESTED > 7.0 Performed By: #### L IPID, T4, TSH, CMP #### [facility] [address] [address] [address] Rena Barone Glucose [Mass/Vol] 160 mg/dL Normal [facility] Comment on above: Performed By: #### L IPID, T4, TSH, CMP #### [facility] [address] [address] [address] Rena Barone HbA1c (Bld) [Mass fraction] 7.2 % Critically high 4.5-6.2 [facility] Comment on above: Performed By: #### L IPID, T4, TSH, CMP #### [facility] [address] [address] [address] Rena Barone Physician Referralon 022 Physician Referral [id number] Normal [facility] COVID Quick Testingon 2021 Result Positive [employer] Other METHYLMALONIC ACID (MMA)on 0 03-23-2022 Methylmalonic Acid, Serum 210 nmol/L Normal 0-378 [facility] Comment on above: Performed By: #### L IPID, T4, TSH, CMP #### [facility] [address] [address] [address] Rena Barone FOLATE ([facility])on 2 Folate 16.6 ng/mL Normal >3.0 [facility] Comment on above: Result Comment: A se rum folate concentration of less than 3.1 ng/mL is considered to represent clinical deficiency. Performed By: #### L IPID, T4, TSH, CMP #### [facility] [address] [place] [address] Dr. Rena Barone GLYCOHEMOGLOBIN A1Con 2021 ADA RECOMMENDATION SEE BELOW Normal [facility] Comment on above: Result Comment: ADA RECOMMENDED LIMIT 4.0 - 6.0 ADA THERAPEUTIC TARGET < 7.0 ACTION SUGGESTED > 7.0 Performed By: #### L IPID, T4, TSH, CMP #### [facility] [address] [place] [address] Dr. Rena Barone Glucose [Mass/Vol] 160 mg/dL Normal [facility] Comment on above: Performed By: #### L IPID, T4, TSH, CMP #### [facility] [address] [place] [address] Dr. Rena Barone HbA1c (Bld) [Mass fraction] 7.2 % Critically high 4.5-6.2 [facility] Comment on above: Performed By: #### L IPID, T4, TSH, CMP #### [facility] [address] [place] [address] Dr. Rena Barone RETICULOCYTEon 03-15-2022 RETIC 1.64 % Normal 0.60-3.10 [facility] Comment on above: Performed By: #### R ETIC #### [facility] [address] [place] [address] Dr. Rena Barone VITAMIN B12on 03-15-2022 Cobalamin (Vitamin B12) [Mass/Vol] 386.0 pg/mL Normal 193.0-986.0 [facility] Comment on above: Performed By: #### L IPID, T4, TSH, CMP #### [facility] [address] [place] [address] Dr. Rena Barone CBC AUTO DIFFon 02-26-2022 BASO # 0.0 103/ul Normal 0.0-0.1 [facility] Comment on above: Performed By: #### L IPID, T4, TSH, CMP #### [facility] [address] [place] [address] Dr. Rena Barone Basophils/100 WBC (Bld) 0.3 % Normal 0.2-2.0 [facility] Comment on above: Performed By: #### L IPID, T4, TSH, CMP #### [facility] [address] [place] [address] Dr. Rena Barone EO # 0.2 103/ul Normal 0.0-0.7 [facility] Comment on above: Performed By: #### L IPID, T4, TSH, CMP #### [facility] [address] [address] [address] Rena Barone Eosinophils/100 WBC (Bld) 2.0 % Normal 0.9-7.0 [facility] Comment on above: Performed By: #### L IPID, T4, TSH, CMP #### [facility] [address] [place] [address] Dr. Rena Barone Erythrocyte distribution width (RBC) [Ratio] 12.9 % Normal 11.0-15.0 [facility] Comment on above: Performed By: #### L IPID, T4, TSH, CMP #### [facility] [address] [place] [address] Dr. Rena Barone Hematocrit (Bld) [Volume fraction] 38.1 % Critically low 42.0-54.0 [facility] Comment on above: Performed By: #### L IPID, T4, TSH, CMP #### [facility] [address] [place] [address] Dr. Rena Barone Hemoglobin (Bld) [Mass/Vol] 12.5 g/dL Critically low 14.0-18.0 [facility] Comment on above: Performed By: #### L IPID, T4, TSH, CMP #### [facility] [address] [place] [address] Dr. Rena Barone IG # 0.03 10e3/ul Normal 0.00-0.03 [facility] Comment on above: Performed By: #### L IPID, T4, TSH, CMP #### [facility] [address] [place] [address] Dr. Rena Barone IG % 0.3 % Normal 0.0-0.5 [facility] Comment on above: Performed By: #### L IPID, T4, TSH, CMP #### [facility] [address] [place] [address] Dr. Rena Barone LYMPH # 1.8 103/ul Normal 1.2-3.8 [facility] Comment on above: Performed By: #### L IPID, T4, TSH, CMP #### [facility] [address] [place] [address] Dr. Rena Barone Lymphocytes/100 WBC (Bld) 18.9 % Critically low 20.5-60.0 [facility] Comment on above: Performed By: #### L IPID, T4, TSH, CMP #### [facility] [address] [place] [address] Dr. Rena Barone MANUAL DIFF REQ NO Normal [facility] Comment on above: Performed By: #### L IPID, T4, TSH, CMP #### [facility] [address] [place] [address] Dr. Rena Barone MCH (RBC) [Entitic mass] 33.3 pg Normal 25.9-34.0 [facility] Comment on above: Performed By: #### L IPID, T4, TSH, CMP #### [facility] [address] [place] [address] Dr. Rena Barone MCHC (RBC) [Mass/Vol] 32.8 g/dL Normal 29.9-35.2 [facility] Comment on above: Performed By: #### L IPID, T4, TSH, CMP #### [facility] [address] [place] [address] Dr. Rena Barone MCV (RBC) [Entitic vol] 101.6 fL Critically high 80.0-94.0 [facility] Comment on above: Performed By: #### L IPID, T4, TSH, CMP #### [facility] [address] [place] [address] Dr. Rena Barone MONO # 0.8 103/ul Normal 0.3-0.8 [facility] Comment on above: Performed By: #### L IPID, T4, TSH, CMP #### [facility] [address] [place] [address] Dr. Rena Barone Monocytes/100 WBC (Bld) 9.0 % Normal 1.7-12.0 [facility] Comment on above: Performed By: #### L IPID, T4, TSH, CMP #### [facility] [address] [place] [address] Dr. Rena Barone NEUT # 6.5 103/ul Normal 1.4-6.5 [facility] Comment on above: Performed By: #### L IPID, T4, TSH, CMP #### [facility] [address] [place] [address] Dr. Rena Barone Neutrophils/100 WBC (Bld) 69.5 % Normal 43.0-75.0 [facility] Comment on above: Performed By: #### L IPID, T4, TSH, CMP #### [facility] [address] [place] [address] Dr. Rena Barone Platelet mean volume (Bld) [Entitic vol] 12.0 fL Normal 9.5-13.5 [facility] Comment on above: Performed By: #### L IPID, T4, TSH, CMP #### [facility] [address] [place] [address] Dr. Rena Barone PLT 166 103/ul Normal 150-450 [facility] Comment on above: Performed By: #### L IPID, T4, TSH, CMP #### [facility] [address] [place] [address] Dr. Rena Barone RBC 3.75 106/ul Critically low 4.70-6.10 [facility] Comment on above: Performed By: #### L IPID, T4, TSH, CMP #### [facility] [address] [place] [address] Dr. Rena Barone WBC 9.3 103/ul Normal 4.0-11.0 [facility] Comment on above: Performed By: #### L IPID, T4, TSH, CMP #### [facility] [address] [place] [address] Dr. Rena Barone LIPID PROFILEon 02-26-2022 CHOL-HDL RATIO NORM SEE BELOW Normal [facility] Comment on above: Result Comment: 3.3 - 4.4 LOW RISK 4.4 - 7.1 AVERAGE RISK 7.1 - 11.0 MODERATE RISK >11.0 HIGH RISK Performed By: #### L IPID, T4, TSH, CMP #### [facility] [address] [address] [address] Rena Barone Cholesterol [Mass/Vol] 133 mg/dL Normal <=200 [facility] Comment on above: Performed By: #### L IPID, T4, TSH, CMP #### [facility] [address] [address] [address] Rena Barone Cholesterol in HDL [Mass/Vol] 29 mg/dL Critically low 40-60 [facility] Comment on above: Performed By: #### L IPID, T4, TSH, CMP #### [facility] [address] [address] [address] Rena Barone Cholesterol in LDL [Mass/Vol] 66.8 mg/dL Normal [facility] Comment on above: Performed By: #### L IPID, T4, TSH, CMP #### [facility] [address] [address] [address] Rena Barone Cholesterol.total/Ch olesterol in HDL [Mass ratio] 4.6 {ratio} Normal [facility] Comment on above: Performed By: #### L IPID, T4, TSH, CMP #### [facility] [address] [address] [address] Rena Barone HDL NORMAL > or = 60 mg/dl - LOW CARDIOVASCULAR RISK <40 mg/dl - HIGH CARDIOVASCULAR RISK Normal [facility] Comment on above: Performed By: #### L IPID, T4, TSH, CMP #### [facility] [address] [address] [address] Rena Barone LDL CALC NORMAL SEE BELOW Normal [facility] Comment on above: Result Comment: <100 mg/dl OPTIMAL 100 - 129 mg/dl NEAR OR ABOVE OPTIMAL 130 - 159 mg/dl BORDERLINE HIGH 160 - 189 mg/dl HIGH >190 mg/dl VERY HIGH Performed By: #### L IPID, T4, TSH, CMP #### [facility] [address] [address] [address] Rena Barone Triglyceride [Mass/Vol] 186 mg/dL Critically high <=150 [facility] Comment on above: Performed By: #### L IPID, T4, TSH, CMP #### [facility] [address] [address] [address] Rena Barone VLDL CALC 37.2 mg/dL Normal [facility] Comment on above: Performed By: #### L IPID, T4, TSH, CMP #### [facility] [address] [place] [address] Dr. Rena Barone PROF 14(COMP METB)on 022 Albumin [Mass/Vol] 3.8 g/dL Normal 3.4-5.0 [facility] Comment on above: Performed By: #### L IPID, T4, TSH, CMP #### [facility] [address] [place] [address] Dr. Rena Barone Albumin/Globulin [Mass ratio] 1.0 {ratio} Normal [facility] Comment on above: Performed By: #### L IPID, T4, TSH, CMP #### [facility] [address] [place] [address] Dr. Rena Barone ALP [Catalytic activity/Vol] 83 U/L Normal 46-116 [facility] Comment on above: Performed By: #### L IPID, T4, TSH, CMP #### [facility] [address] [place] [address] Dr. Rena Barone ALT [Catalytic activity/Vol] 28 U/L Normal 16-63 [facility] Comment on above: Performed By: #### L IPID, T4, TSH, CMP #### [facility] [address] [place] [address] Dr. Rena Barone Anion gap [Moles/Vol] 15.9 mmol/L Normal [facility] Comment on above: Performed By: #### L IPID, T4, TSH, CMP #### [facility] [address] [place] [address] Dr. Rena Barone AST [Catalytic activity/Vol] 16 U/L Normal 15-37 [facility] Comment on above: Performed By: #### L IPID, T4, TSH, CMP #### [facility] [address] [place] [address] Dr. Rena Barone Bilirubin [Mass/Vol] 0.6 mg/dL Normal 0.2-1.0 [facility] Comment on above: Performed By: #### L IPID, T4, TSH, CMP #### [facility] [address] [address] [address] Rena Barone Calcium [Mass/Vol] 8.9 mg/dL Normal 8.5-10.1 [facility] Comment on above: Performed By: #### L IPID, T4, TSH, CMP #### [facility] [address] [address] [address] Rena Barone Chloride [Moles/Vol] 101 mmol/L Normal 98-107 [facility] Comment on above: Performed By: #### L IPID, T4, TSH, CMP #### [facility] [address] [place] [address] Dr. Rena Barone CO2 [Moles/Vol] 24.4 mmol/L Normal 21.0-32.0 [facility] Comment on above: Performed By: #### L IPID, T4, TSH, CMP #### [facility] [address] [address] [address] Rena Barone Creatinine [Mass/Vol] 1.09 mg/dL Normal 0.70-1.30 [facility] Comment on above: Performed By: #### L IPID, T4, TSH, CMP #### [facility] [address] [place] [address] Dr. Rena Barone EGFR-AF RWANDAN >60 Normal >=60 [facility] Comment on above: Performed By: #### L IPID, T4, TSH, CMP #### [facility] [address] [place] [address] Dr. Rena Barone EGFR-NON AF RWANDAN >60 Normal >=60 [facility] Comment on above: Performed By: #### L IPID, T4, TSH, CMP #### [facility] [address] [place] [address] Dr. Rena Barone Globulin (S) [Mass/Vol] 3.8 g/dL Normal [facility] Comment on above: Performed By: #### L IPID, T4, TSH, CMP #### [facility] [address] [address] [address] Rena Barone Glucose [Mass/Vol] 130 mg/dL Critically high 74-106 [facility] Comment on above: Performed By: #### L IPID, T4, TSH, CMP #### [facility] [address] [address] [address] Rena Barone Potassium [Moles/Vol] 4.3 mmol/L Normal 3.5-5.1 [facility] Comment on above: Performed By: #### L IPID, T4, TSH, CMP #### [facility] [address] [place] [address] Dr. Rena Barone Protein [Mass/Vol] 7.6 g/dL Normal 6.4-8.2 [facility] Comment on above: Performed By: #### L IPID, T4, TSH, CMP #### [facility] [address] [address] [address] Rena Barone Sodium [Moles/Vol] 137 mmol/L Normal 136-145 [facility] Comment on above: Performed By: #### L IPID, T4, TSH, CMP #### [facility] [address] [place] [address] Dr. Rena Barone Urea nitrogen [Mass/Vol] 26.0 mg/dL Critically high 7.0-18.0 [facility] Comment on above: Performed By: #### L IPID, T4, TSH, CMP #### [facility] [address] [place] [address] Dr. Rena Barone Urea nitrogen/Creatinine [Mass ratio] 23.9 mg/mg Normal [facility] Comment on above: Performed By: #### L IPID, T4, TSH, CMP #### [facility] [address] [place] [address] Dr. Rena Barone T4on 02-26-2022 T4 [Mass/Vol] 4.20 ug/dL Critically low 4.50-12.10 [facility] Comment on above: Performed By: #### L IPID, T4, TSH, CMP #### [facility] [address] [place], [place] [address] Dr. Rena Barone TSHon 02-26-2022 TSH 3.428 uIU/mL Normal 0.358-3.740 [facility] Comment on above: Performed By: #### L IPID, T4, TSH, CMP #### [facility] [address] [address] [address] Rena Barone TSH RANGE SEE BELOW Normal [facility] Comment on above: Result Comment: <0.3 4 UIU/ml HYPERTHYROID 0.34-5.60 UIU/ml EUTHYROID >5.60 UIU/ml HYPOTHYROID Performed By: #### L IPID, T4, TSH, CMP #### [facility] [address] [address] [address] Rena Barone Vital Signs Date Time Vital Sign Value Performing Clinician Facility 03-12-2024 09:46-0400 Body height 177.8 cm [facility] 03-12-2024 09:46-0400 Body mass index (BMI) [Ratio] 45.3 kg/m2 [facility] 03-12-2024 09:46-0400 Body weight 143.5 kg [facility] 03-12-2024 09:46-0400 Diastolic blood pressure 69 mm[Hg] [facility] 03-12-2024 09:46-0400 Heart rate 80 /min [facility] 03-12-2024 09:46-0400 Respiratory rate 16 /min [facility] 03-12-2024 09:46-0400 Systolic blood pressure 107 mm[Hg] [facility] 11-07-2023 09:00-0500 Body height 177.8 cm Delonte Nikhil Other [facility] Other 11-07-2023 09:00-0500 Body mass index (BMI) [Ratio] 45.11 kg/m2 Delonte Ball Other [facility] Other 11-07-2023 09:00-0500 Body weight 142.61 kg Delonte Ball Other [facility] Other 11-07-2023 09:00-0500 Diastolic blood pressure 86 mm[Hg] Delonte Ball Other [facility] Other 11-07-2023 09:00-0500 Respiratory rate 16 /min Delonte Ball Other [facility] Other 11-07-2023 09:00-0500 Systolic blood pressure 131 mm[Hg] Delonte Ball Other [facility] Other 07-25-2023 09:00-0400 Body height 177.8 cm Delonte Ball Other [facility] Other 07-25-2023 09:00-0400 Body mass index (BMI) [Ratio] 46.54 kg/m2 Delonte Ball Other [facility] Other 07-25-2023 09:00-0400 Body weight 147.15 kg Delonte Ball Other [facility] Other 07-25-2023 09:00-0400 Diastolic blood pressure 83 mm[Hg] Delonte Ball Other [facility] Other 07-25-2023 09:00-0400 Respiratory rate 16 /min Delonte Ball Other [facility] Other 07-25-2023 09:00-0400 Systolic blood pressure 130 mm[Hg] Delonte Ball Other [facility] Other 06-05-2023 11:25-0400 Body height 177.8 cm Bonny Raymundo Other [facility] Other 06-05-2023 11:25-0400 Body mass index (BMI) [Ratio] 46.48 kg/m2 Bonny Raymundo Other [facility] Other 06-05-2023 11:25-0400 Body temperature 98.2 [degF] Bonny Raymundo Other [facility] Other 06-05-2023 11:25-0400 Body weight 146.97 kg Bonny Raymundo Other [facility] Other 06-05-2023 11:25-0400 Diastolic blood pressure 61 mm[Hg] Bonny Raymundo Other [facility] Other 06-05-2023 11:25-0400 Respiratory rate 18 /min Bonny Raymundo Other [facility] Other 06-05-2023 11:25-0400 SaO2% (BldA) [Mass fraction] 97 % Bonny Raymundo Other [facility] Other 06-05-2023 11:25-0400 Systolic blood pressure 109 mm[Hg] Bonny Raymundo Other [facility] Other 02-14-2023 11:00-0400 Body height 177.8 cm Bonny Raymundo Other [facility] Other 02-14-2023 11:00-0400 Body mass index (BMI) [Ratio] 47.06 kg/m2 Bonny Raymundo Other [facility] Other 02-14-2023 11:00-0400 Body temperature 98 [degF] Bonny Raymundo Other [facility] Other 04-28-2023 11:00-0400 Body weight 148.78 kg Bonny Zackary Other [facility] Other 02-14-2023 11:00-0400 Diastolic blood pressure 73 mm[Hg] Bonny Raymundo Other [facility] Other 02-14-2023 11:00-0400 Respiratory rate 18 /min Bonny Zackary Other [facility] Other 02-14-2023 11:00-0400 SaO2% (BldA) [Mass fraction] 96 % Bonny Raymundo Other [facility] Other 02-14-2023 11:00-0400 Systolic blood pressure 130 mm[Hg] Bonny Raymundo Other [facility] Other 01-09-2023 12:30-0400 Body height 177.8 cm Delonte Ball Other [facility] Other 01-09-2023 12:30-0400 Body mass index (BMI) [Ratio] 48.18 kg/m2 Delonte Ball Other [facility] Other 01-09-2023 12:30-0400 Body weight 152.32 kg Delonte Ball Other [facility] Other 01-09-2023 12:30-0400 Diastolic blood pressure 78 mm[Hg] Delonte Ball Other [facility] Other 01-09-2023 12:30-0400 Respiratory rate 16 /min Delonte Ball Other [facility] Other 01-09-2023 12:30-0400 Systolic blood pressure 124 mm[Hg] Delonte Ball Other [facility] Other 11-01-2022 11:00-0500 Body height 177.8 cm Delonte Ball Other [facility] Other 11-01-2022 11:00-0500 Body mass index (BMI) [Ratio] 48.58 kg/m2 Delonte Ball Other [facility] Other 11-01-2022 11:00-0500 Body weight 153.59 kg Delonte Ball Other [facility] Other 11-01-2022 11:00-0500 Diastolic blood pressure 76 mm[Hg] Delonte Ball Other [facility] Other 11-01-2022 11:00-0500 Respiratory rate 16 /min Delonte Ball Other [facility] Other 11-01-2022 11:00-0500 Systolic blood pressure 122 mm[Hg] Delonte Ball Other [facility] Other 10-07-2022 10:20-0500 Diastolic blood pressure 68 mm[Hg] DO Delonte Ball Work Phone: [facility] 10-07-2022 10:20-0500 Heart rate 93 /min DO Delonte Ball Work Phone: [facility] 10-07-2022 10:20-0500 Respiratory rate 16 /min DO Delonte Ball Work Phone: [facility] 10-07-2022 10:20-0500 SaO2% (BldA) [Mass fraction] 98 % DO Delonte Ball Work Phone: [facility] 10-07-2022 10:20-0500 Systolic blood pressure 114 mm[Hg] DO Delonte Ball Work Phone: [facility] 10-07-2022 08:37-0500 Body height 176.53 cm DO Delonte Ball Work Phone: [facility] 10-07-2022 08:37-0500 Body temperature 98.7 [degF] DO Delonte Ball Work Phone: [facility] 10-07-2022 08:37-0500 Body weight 147.41 kg DO Delonte Ball Work Phone: [facility] 05-19-2022 12:40-0400 Body height 177.8 cm Bonny Raymundo Other [facility] Other 05-19-2022 12:40-0400 Body mass index (BMI) [Ratio] 45.91 kg/m2 Bonny Raymundo Other [facility] Other 05-19-2022 12:40-0400 Body temperature 100.6 [degF] Bonny Raymundo Other [facility] Other 05-19-2022 12:40-0400 Body weight 145.15 kg Bonny Raymundo Other [facility] Other 05-19-2022 12:40-0400 SaO2% (BldA) [Mass fraction] 98 % Bonny Raymundo Other [facility] Other 08-12-2021 12:30-0400 Body temperature 98.2 [degF] Bonny Betoy Other [facility] Other 08-12-2021 12:30-0400 SaO2% (BldA) [Mass fraction] 92 % Bonny Ginty Other [facility] Other Encounters Encounter Date Encounter Type Care Provider Facility Start: 03-12-2024 End: 03-12-2024 ambulatory [facility] Work Phone: Start: 03-12-2024 End: 03-12-2024 Patient encounter procedure [facility] Work Phone: Start: 01-20-2024 End: 01-20-2024 ambulatory FELIPE FATIMA [facility] Start: 12-18-2023 Non-patient / Non-visit [facility] Work Phone: Start: 12-17-2023 End: 12-17-2023 ambulatory KOLBYFLACA PEOPLESFARHAD [facility] Start: 11-07-2023 End: 11-07-2023 ambulatory Delonte Tejeda Other [facility] Other Start: 11-07-2023 Encounter for genera l adult medical examination without abnormal findings Delonte Tejeda [facility] Start: 11-07-2023 Periodic preventive med est patient 40-64yrs Delonte Tejeda [facility] Start: 10-18-2023 End: 10-18-2023 ambulatory Bonny Raymundo Other [facility] Other Start: 10-18-2023 Telephone encounter Bonny Raymundo [facility] Start: 10-17-2023 Telephone encounter Delonte Tejeda [facility] Start: 10-17-2023 End: 10-17-2023 ambulatory DO Delonte Tejeda Work Phone: [facility] Other Start: 10-17-2023 End: 10-17-2023 Patient encounter procedure DO Delonte Tejeda Work Phone: [facility] Work Phone: Start: 10-09-2023 End: 10-09-2023 ambulatory Delonte Tejeda Other [facility] Other Start: 10-09-2023 Telephone encounter Delonte Tejeda [facility] Start: 07-25-2023 End: 07-25-2023 ambulatory Delonte Tejeda Other [facility] Other Start: 07-25-2023 Office outpatient vi sit 25 minutes Delonte Tejeda [facility] Start: 07-21-2023 End: 07-21-2023 ambulatory Bonny Raymundo Other [facility] Other Start: 07-21-2023 Telephone encounter Bonny Raymundo [facility] Start: 07-11-2023 End: 07-11-2023 ambulatory Delonte Tejeda Other [facility] Other Start: 07-11-2023 Telephone encounter Delonte Tejeda [facility] Start: 06-06-2023 End: 06-06-2023 ambulatory Delonte Tejeda Other [facility] Other Start: 06-06-2023 Telephone encounter [facility]hil [facility] Start: 06-05-2023 Office outpatient vi sit 15 minutes Bonny Zackary [facility] Start: 06-05-2023 Telephone encounter Delonte Tejeda [facility] Start: 06-05-2023 End: 06-05-2023 ambulatory DO Delonte Tejeda Work Phone: [facility] Other Start: 06-05-2023 End: 06-05-2023 Patient encounter procedure DO Delonte Tejeda Work Phone: [facility] Work Phone: Start: 04-18-2023 End: 04-18-2023 ambulatory Delonte Tejeda Other [facility] Other Start: 04-18-2023 Telephone encounter Delonte Nikhil [facility] Start: 04-14-2023 End: 04-14-2023 ambulatory Delonte Nikhil Other [facility] Other Start: 04-14-2023 Telephone encounter Delonte Nikhil [facility] Start: 02-21-2023 End: 02-22-[address] DELONTE TEJEDA Facility: Start: 02-18-2023 End: 02-18-2023 ambulatory Delonte Tejeda Other [facility] Other Start: 02-18-2023 Telephone encounter Delonte Tejeda [facility] Start: 02-14-2023 End: 02-14-2023 ambulatory Bonny Raymundo Other [facility] Other Start: 02-14-2023 Office outpatient vi sit 25 minutes Bonny Raymundo [facility] Start: 01-29-2023 End: 01-29-2023 ambulatory Delonte Tejeda Other [facility] Other Start: 01-29-2023 Telephone encounter Delonte Ball [facility] Start: 01-20-2023 End: 01-20-2023 ambulatory Delonte Ball Other [facility] Other Start: 01-20-2023 Telephone encounter Delonte Ball [facility] Start: 01-09-2023 End: 01-09-2023 ambulatory Delonte Ball Other [facility] Other Start: 01-09-2023 Office outpatient vi sit 25 minutes Delonte Nikhil [facility] Start: 12-24-2022 End: 12-24-2022 ambulatory Delonte Ball Other [facility] Other Start: 12-24-2022 Telephone encounter Delonte Ball [facility] Start: 12-06-2022 End: 12-07-[address] NONE LISTED REQUEST Facility:[facility] Start: 11-29-2022 End: 11-30-[address] NONE LISTED REQUEST Facility:[facility] Start: 11-25-2022 End: 11-25-2022 ambulatory Delonte Ball Other [facility] Other Start: 11-25-2022 Telephone encounter Delonte Ball [facility] Start: 11-01-2022 End: 11-01-2022 ambulatory Delonte Ball Other [facility] Other Start: 11-01-2022 Encounter for genera l adult medical examination without abnormal findings Delonte Tejeda [facility] Start: 11-01-2022 Patient encounter procedure Delonte Tejeda [facility] Start: 11-01-2022 Periodic preventive med est patient 40-64yrs Delonte Tejeda [facility] Start: 10-18-2022 End: 10-18-2022 ambulatory Bonny Raymundo Other [facility] Other Start: 10-18-2022 Telephone encounter Bonny Raymundo [facility] Start: 10-07-2022 End: 10-07-2022 Admission to same day surgery center DO Delonte Tejeda Work Phone: [facility] Start: 10-07-2022 End: 10-07-2022 ambulatory DO Delonte Nikhil Work Phone: [facility] Work Phone: Start: 07-30-2022 End: 07-31-2022 ambulatory NONE LISTED REQUEST Facility:[facility] Start: 07-12-2022 ambulatory Malik MOLINA Facility : [facility] Start: 06-04-2022 End: 06-05-[address] DELONTE TEJEDA Facility:[facility] Start: 05-19-2022 End: 05-19-2022 ambulatory Bonny Raymundo Other [facility] Other Start: 05-19-2022 Office outpatient vi sit 25 minutes Bonny Raymundo [facility] Start: 05-01-2022 End: 05-02-[address] DELONTE TEJEDA Facility:[facility] Start: 03-15-2022 End: 03-16-[address] DELONTE TEJEDA Facility:[facility] Start: 03-14-2022 End: 03-15-2022 ambulatory NONE LISTED REQUEST Facility:[facility] Start: 02-26-2022 End: 02-27-[address] DELONTE TEJEDA Facility:[facility] Start: 09-07-2021 Adult health examination Bonny Raymundo Other [facility] Other Start: 08-12-2021 End: 08-12-2021 ambulatory Bonny Sr Other [facility] Other Start: 08-12-2021 Office outpatient vi sit 15 minutes Bonny Sr [facility] Procedures Date Procedure Procedure Detail Performing Clinician Start: 06-05-2023 Plain X-ray of left hip DO Delonte Tejeda Work Phone: Start: 02-21-[address] RAYA TEJEDA Comment on above: Performed By: #### P SASC #### [facility] [address] [address] [address] Rena Barone Start: 10-07-2022 Colonoscopy DO Anjali Tejeda Work Phone: Start: 02-26-[address] RAYA TEJEDA Comment on above: Performed By: #### L IPID, T4, TSH, CMP #### [facility] [address] [address] [address] Rena Barone Start: 05-20-2016 General examination of patient Bonny Raymundo Other Start: 01-04-2016 Screening for malign ant neoplasm of colon Bonny Raymundo Other Plan of Treatment Date Care Activity Detail Author Start: 10-07-2022 [facility] Patient Education Colon Polyps [facility] Work Phone: Immunizations Immunization Date Immunization Notes Care Provider Fa cilivianney 08-19-2022 COVID-19 Pfizer (bivalent) Bonny Raymundo Other [facility] 08-19-2022 COVID-19 Pfizer (Pediatric) Bonny Raymundo Other [facility] 08-19-2022 influenza virus vaccine, split virus (incl. purified surface antigen) Bonny Raymundo Other [facility] Other 08-19-2022 influenza virus vaccine, unspecified formulation [facility] 10-31-2022 influenza, injectabl e, quadrivalent, preservative free Bonny Raymundo Other [facility] 02-09-2022 COVID-19 Pfizer Bonny Raymundo Other [facility] 02-09-2022 COVID-19 Vaccine Pfi zer - Documentation Purposes Only Bonny Raymundo Other [facility] 08-06-2021 COVID-19 Vaccine Pfi zer - Documentation Purposes Only Bonny Raymundo Other [facility] 08-06-2021 influenza virus vaccine, split virus (incl. purified surface antigen) Bonny Raymundo Other [facility] Other 08-06-2021 influenza virus vaccine, unspecified formulation [facility] 01-20-2021 COVID-19 mRNA, Comirnaty (Pfizer) DO [employer] Work Phone: [facility] 12-30-2020 COVID-19 mRNA, Comirnaty ([employer]) DO [employer] Work Phone: [facility] 07-26-2020 influenza virus vaccine, split virus (incl. purified surface antigen) Bonny Raymundo Other [facility] Other 07-26-2020 influenza virus vaccine, unspecified formulation [facility] 09-06-2017 tetanus and diphther ia toxoids, adsorbed, preservative free, for adult use (5 Lf of tetanus toxoid and 2 Lf of diphtheria toxoid) Bonny Raymundo Other [facility] Payers Date Payer Category Payer Unknown [id number] [id number] 1960 Unknown [id number] 2.16.84 [id number] 1959 Unknown [id number] 2.16.84 [id number] 1959 Unknown [id number] 2.16.84 [id number] 1960 Self-pay [id number] 1960 Self-pay [id number] 1960 Unknown [id number] 2. [id number] Unknown [id number] 2.16.84 [id number] Unknown [id number] 2.16.84 [id number] Unknown [id number] 2.16.84 [id number] Unknown [id number] 2.16.84 [id number] Unknown [id number] 2.16.84 [id number] Unknown [id number] 2.16.84 [id number] Unknown [id number] 2.16.8 [id number] Unknown [id number] 2.16.8 [id number] Social History Date Type Detail Facility Sex Assigned At [facility] Other Start: 10-07-2022 End: 10-07-2022 Tobacco smoking status MDIS Current some day smoker [facility] Start: 1960 Sex Assigned At Male F [facility] Start: 12-18-2023 Tobacco smoking stat us [facility] Ex-smoker (finding) [facility] Goals Date Patient Goal Desired Activity /State Clinical Notes 08-12-2021 to 01-20-2024 Note Date & Type Note Facility 01-20-2024 Note [facility] Consult Note Reason for visit: persistent AF HPI: Salomón Rush is a 63 y.o. year old with past medical history of A-fib that was diagnosed over 12 years ago and was treated with flecainide, anemia, type 2 diabetes on insulin, gout, hypertension, ELENITA, obesity, hyperlipidemia. He had TTE 09/2023 shows LV EF normal, LV size and thickness normal, mild to moderate DD, left atrial enlargement, aortic sclerosis with trace AI, mild to moderate MR He stopped flecainide given having breakthrough episodes. He has never been cardioverted or offered an ablation. he can tell he is in A-fib but he is fairly symptomatic, states at times he just feels fluttering but denies any shortness of breath, chest pain, fatigue. [id number] at least 2 for hypertension, DM 2, takes Xarelto 20 mg daily he was seen by Kolby PRATT and at that time 14-day event monitor was ordered which she did from 12/17/2023 to 01/02/2024. patient was noted to be in atrial fibrillation 100% of the time he was noted to have occasional episodes of A-fib with RVR there was 1 patient triggered event which correlated with A-fib as well as PVCs. ECG 09/2023 shows A-fib, rate controlled PMH: Past Medical History: Diagnosis Date Abnormal ECG Arrhythmia Atrial fibrillation (CMS/HCC) Diabetes mellitus (CMS/HCC) Hyperlipidemia Hypertension Sleep apnea PSH: Past Surgical History: Procedure Laterality Date COLONOSCOPY ESOPHAGOSCOPY / EGD KNEE ARTHROPLASTY Bilateral ROTATOR CUFF REPAIR SH: Social Determinants of Health Tobacco Use: Medium Risk (01/20/2024) Patient History Smoking Tobacco Use: Former Smokeless Tobacco Use: Never Passive Exposure: Not on file Alcohol Use: Not on file Financial Resource Strain: Not on file Food Insecurity: Not on file Transportation Needs: Not on file Physical Activity: Not on file Stress: Not on file Social Connections: Not on file Intimate Partner Violence: Unknown (12/11/2023) [place] Safety & Environment Fear of Current or Ex-Partner: Not on file Emotionally Abused: Not on file Physically Abused: Not on file Sexually Abused: Not on file Physically or Sexually Abused: Not on file Depression: Not on file Housing Stability: Not on file Utilities: Not on file Allergies: No Known Allergies Weight: 143kg Visit Vitals BP 106/62 (BP Location: Left arm, Patient Position: Sitting, BP Cuff Size: Adult) Pulse 98 Resp 12 Ht 1.765 m (5' 9.5 ) Wt (!) 143 kg (316 lb) SpO2 96% BMI 46.00 kg/m??? Smoking Status Former BSA 2.65 m??? Meds: Current Outpatient Medications on File Prior to Visit Medication Sig Dispense Refill allopurinol (Zyloprim) 300 mg tablet Take 300 mg by mouth in the morning. amLODIPine (Norvasc) 5 mg tablet Take 1 tablet by mouth in the morning. carvedilol (Coreg) 25 mg tablet Take 1.5 tablets, for 37.5mg , twice daily 90 tablet 3 co-enzyme Q-10 50 mg capsule Take 50 mg by mouth in the morning. furosemide (Lasix) 40 mg tablet Take 1 tablet by mouth in the morning. insulin glargine (Lantus) 100 unit/mL injection vial Inject under the skin at bedtime. lisinopril 40 mg tablet Take 40 mg by mouth in the morning. potassium chloride CR (Klor-Con M20) 20 mEq ER tablet Take 20 mEq by mouth in the morning. Do not crush or chew. pravastatin (Pravachol) 40 mg tablet Take 40 mg by mouth at bedtime. rivaroxaban (Xarelto) 20 mg tablet Take 1 tablet by mouth in the morning. Take with food. semaglutide (Ozempic) 0.25 mg or 0.5 mg(2 mg/1.5 mL) pen injector Inject under the skin 1 (one) time per week. No current facility-administered medications on file prior to visit. ROS: Review of Systems Cardiovascular: Positive for palpitations. Musculoskeletal: Positive for arthritis, back pain and joint pain. All other systems reviewed and are negative. Physical Exam: Constitutional General Appearance: well-nourished, well-developed, appears stated age Level of Distress: comfortable Psychiatric Mental Status: alert, normal affect Orientation: oriented to time, place, and person Insight: good judgement Eyes Lids and Conjunctivae: non-injected, no xanthelasma ENMT Ears: no lesions on external ear Nose: no lesions on external nose Oropharynx: no cyanosis, no pallor Neck Neck: supple, trachea midline Carotid Arteries: bilateral normal upstroke, no bruits Jugular Veins: normal jugular venous pressure Thyroid: not enlarged Lungs Respiratory Effort: unlabored Chest Exam: normal curvature, no thoracic deformity Auscultation: clear, no wheezing, no rales, no rhonchi Cardiovascular Rate And Rhythm: regular Heart Sounds: normal S1, normal s2, no gallop Systolic Murmur: not heard Diastolic Murmur: not heard Extremities: no cyanosis, no edema, no peripheral signs of emboli Peripheral Pulses Radial Pulse: normal Abdomen Inspection and Palpation: soft, non distended, no bruit, non tender Musculoskeletal In (more content not included)... [facility] 12-17-2023 Note New patient here to establish care. Ref from Dr. Tejeda for hx of afib. He used to see [facility] in [place], and hasn't seen them in a few years. He had EKG and echo in Sep 2023, and lab work a few weeks ago. He used to be on coumadin but couldn't tolerate due to epistaxis. Denies chest pain, SOB, lightheadedness/syncope, and bleeding on Xarelto. Has palpitations all the time . He is compliant with cpap therapy. Review of Systems Cardiovascular: Positive for palpitations. Musculoskeletal: Positive for arthritis, back pain and joint pain. All other systems reviewed and are negative. [facility] 12-17-2023 Note [facility] Consult Note Reason for visit: new pt, persistent AF HPI: Salomón Rush is a 63 y.o. year old with past medical history of A-fib that was diagnosed over 12 years ago and was treated with flecainide, anemia, type 2 diabetes on insulin, gout, hypertension, ELENITA, obesity, hyperlipidemia He is here to establish care He had TTE 09/2023 shows LV EF normal, LV size and thickness normal, mild to moderate DD, left atrial enlargement, aortic sclerosis with trace AI, mild to moderate MR He was stopped on flecainide given having breakthrough episodes. [id number] at least 2 for hypertension, DM 2, takes Xarelto 20 mg daily He has never been cardioverted or offered an ablation he can tell he is in A-fib but he is fairly symptomatic, states at times he just feels fluttering but denies any shortness of breath, chest pain, fatigue ECG 09/2023 shows A-fib, rate controlled pulse check/heart tones today 12/09/2023, patient is likely in A-fib, no RVR noted PMH: Past Medical History: Diagnosis Date Abnormal ECG Arrhythmia Atrial fibrillation (CMS/HCC) Diabetes mellitus (CMS/HCC) Hyperlipidemia Hypertension Sleep apnea PSH: Past Surgical History: Procedure Laterality Date COLONOSCOPY ESOPHAGOSCOPY / EGD KNEE ARTHROPLASTY Bilateral ROTATOR CUFF REPAIR SH: Social Determinants of Health Tobacco Use: Medium Risk (12/17/2023) Patient History Smoking Tobacco Use: Former Smokeless Tobacco Use: Never Passive Exposure: Not on file Alcohol Use: Not on file Financial Resource Strain: Not on file Food Insecurity: Not on file Transportation Needs: Not on file Physical Activity: Not on file Stress: Not on file Social Connections: Not on file Intimate Partner Violence: Unknown (12/11/2023) [place] Safety & Environment Fear of Current or Ex-Partner: Not on file Emotionally Abused: Not on file Physically Abused: Not on file Sexually Abused: Not on file Physically or Sexually Abused: Not on file Depression: Not on file Housing Stability: Not on file Utilities: Not on file Allergies: No Known Allergies Weight: 105kg Visit Vitals BP 134/78 (BP Location: Left arm, Patient Position: Sitting) Pulse 89 Ht 1.765 m (5' 9.5 ) Wt 105 kg (232 lb) SpO2 96% BMI 33.77 kg/m??? Smoking Status Former BSA 2.27 m??? Meds: Current Outpatient Medications on File Prior to Visit Medication Sig Dispense Refill allopurinol (Zyloprim) 300 mg tablet Take 300 mg by mouth in the morning. amLODIPine (Norvasc) 5 mg tablet Take 1 tablet by mouth in the morning. carvedilol (Coreg) 25 mg tablet Take 25 mg by mouth with breakfast and with evening meal. co-enzyme Q-10 50 mg capsule Take 50 mg by mouth in the morning. furosemide (Lasix) 40 mg tablet Take 1 tablet by mouth in the morning. insulin glargine (Lantus) 100 unit/mL injection vial Inject under the skin at bedtime. lisinopril 40 mg tablet Take 40 mg by mouth in the morning. potassium chloride CR (Klor-Con M20) 20 mEq ER tablet Take 20 mEq by mouth in the morning. Do not crush or chew. pravastatin (Pravachol) 40 mg tablet Take 40 mg by mouth at bedtime. rivaroxaban (Xarelto) 20 mg tablet Take 1 tablet by mouth in the morning. Take with food. semaglutide (Ozempic) 0.25 mg or 0.5 mg(2 mg/1.5 mL) pen injector Inject under the skin 1 (one) time per week. [DISCONTINUED] tiZANidine (Zanaflex) 2 mg tablet Take 2 mg by mouth every 6 (six) hours if needed. No current facility-administered medications on file prior to visit. ROS: Cardio Basic Cardiovascular Symptoms: no lightheadedness, no leg edema, no syncope, no orthopnea, no PND, no claudication, Constitutional Constitutional: no fever, no night sweats, no significant weight gain, no significant weight loss, no exercise intolerance Eyes Eyes: no dry eyes, no irritation, no vision change ENMT Ears: no difficulty hearing, no ear pain Nose: no frequent nosebleeds, Mouth/Throat: no sore throat, no bleeding gums, no snoring, no dry mouth, no mouth ulcers, no oral abnormalities, no teeth problems Respiratory Respiratory: no cough, no wheezing, no coughing up blood, no sleep apnea Musculoskeletal Musculoskeletal: no muscle aches, no muscle weakness, joint pain+, no back pain, no swelling in the extremities Integumentary Skin no rash, no ulcer, no varicosities, no discoloration, no pruritus Neurologic Neurologic: no loss of consciousness, no weakness, no numbness, no seizures, no dizziness, no headaches Psychiatric Psych: no depression, feeling safe in relationship, no alcohol abuse, Hematologic/Lymphatic Hematologic/Lymphatic no swollen glands, no bruising Physical Exam: Constitutional General Appearance: well-nourished, well-developed, appears stated age Level of Distress: comfortable Psychiatric Mental Status: alert, normal affect Orientation: oriented to time, place, and person Insight: good judgement Eyes Lids and Conju (more content not included)... [facility] 11-07-2023 Evaluation note Encounter Date Diagnosis Assessment Notes Oct, Wellness examination (ICD-10 - Z00.00) Healthy diet and exercise. Reviewed age-appropriate preventive testing recommended. Oct, Type 2 diabetes mellitus with hyperglycemia (ICD-10 - E11.65) This patient is following a comprehensive diabetic treatment plan. They are checking their feet daily for calluses and nonhealing ulcers. They are being seen for yearly dilated eye examinations. Goals: SBP less than 130, LDL less than 100, FBS less than 140, A1C less than 7%. They are checking their BS daily, will which are reviewed at the office visit. Continue regular routine monitoring of A1C,] Microalbumin, Dilated eye exam and Foot exam Oct, Chronic atrial fibrillation (ICD-10 - I48.20) This patient is in NSR or rate controlled. This patient is anticoagulated to prevent thromboembolic events. They are maintaining regular scheduled appts with their supervisor nuclear medicine. No bleeding complications Oct, Primary hypertension (ICD-10 - I10) This patient is instructed to consume a healthy, low-fat, low-salt diet. They are also encouraged to continue exercise to achieve/maintain a normal BMI. Oct, Obstructive sleep apnea (ICD-10 - G47.33) This patient is aware of the benefits associated with ELENITA: With continued use, the patient reduces the risk for [place], CVA, HTN, cardiac dysrhythmias and sudden cardiac deaths.The patient is also aware of the association between ELENITA and morning headaches, daytime somnolence, fatigue and obesity, which also has been improved with continued use.The patient is compliant with treatment, wearing the equipment every night for greater than 4 hours.The patient is instructed to continue use of the CPAP for ELENITA treatment. Oct, Chronic venous insufficiency (ICD-10 - I87.2) Avoid salt and elevate lower extremities, support stockings, inspect legs and feet daily for blisters and ulcerations. Oct, Lumbar spondylosis (ICD-10 - M47.816) The patient is instructed to avoid bending, twisting or lifting. They are to use intermittent heat and ice as needed. They may schedule a massage or gentle manipulation. They may safely use Tylenol as needed. Oct, Hyperlipidemia type II (ICD-10 - E78.01) Instructed on diet and exercise with continued statin therapy.Discussed the beneficial effects of lowering cholesterol in reducing the risk for cerebrovascular and cardiovascular disease. 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 RVSP normal. [facility] Other 12-21-2023 Evaluation note* Encounter Date Diagnosis Assessment Notes Treatment Notes Treatment Clinical Notes Sep, Chronic atrial fibrillation (ICD-10 - I48.20) [facility] 10-06-2023 Evaluation note* Encounter Date Diagnosis Assessment Notes Treatment Notes Treatment Clinical Notes Jul, Primary hypertension (ICD-10 - I10) This patient is instructed to consume a healthy, low-fat, low-salt diet. They are also encouraged to continue exercise to achieve/maintain a normal BMI. Jul, Type 2 diabetes mellitus with hyperglycemia (ICD-10 - E11.65) This patient is following a comprehensive diabetic treatment plan. They are checking their feet daily for calluses and nonhealing ulcers. They are being seen for yearly dilated eye examinations. Goals: SBP less than 130, LDL less than 100, FBS less than 140, A1C less than 7%. They are checking their BS daily, will which are reviewed at the office visit. Continue regular routine monitoring of A1C,] Microalbumin, Dilated eye exam and Foot exam DM well controlled but stalled on weight loss. Suggested considering increasing GLP at next Rx to augment weight loss Jul, Chronic atrial fibrillation (ICD-10 - I48.20) This patient is rate controlled. This patient is anticoagulated to prevent thromboembolic events. Jul, Obstructive sleep apnea (ICD-10 - G47.33) This patient is aware of the benefits associated with ELENITA: With continued use, the patient reduces the risk for [place], CVA, HTN, cardiac dysrhythmias and sudden cardiac deaths.The patient is also aware of the association between ELENITA and morning headaches, daytime somnolence, fatigue and obesity, which also has been improved with continued use.The patient is compliant with treatment, wearing the equipment every night for greater than 4 hours.The patient is instructed to continue use of the CPAP for ELENITA treatment. Jul, Chronic venous insufficiency (ICD-10 - I87.2) Avoid salt and elevate lower extremities, support stockings, inspect legs and feet daily for blisters and ulcerations. Jul, Lumbar spondylosis (ICD-10 - M47.816) The patient is instructed to avoid bending, twisting or lifting. They are to use intermittent heat and ice as needed. They may schedule a massage or gentle manipulation. They may safely use Tylenol as needed. Jul, Hyperlipidemia type II (ICD-10 - E78.01) Instructed on diet and exercise with continued statin therapy.Discussed the beneficial effects of lowering cholesterol in reducing the risk for cerebrovascular and cardiovascular disease. Jul, Herpes zoster with complication (ICD-10 - B02.8) Possible HZV affecting the right shoulder and UE. Initiate Valtrex and monitor pain. Tylenol as needed Avoid NSAIDs due to AC Jul, Acute strain of neck muscle, initial encounter (ICD-10 - S16.1XXA) ROM exercises, heat/ice and Tylenol. If not improvement or develop radicular symptoms, notify office Jul, residential (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 (ICD-10 - Z79.4) [facility] 10-02-2023 Evaluation note* Encounter Date Diagnosis Assessment Notes Treatment Notes Treatment Clinical Notes Jul, Type 2 diabetes mellitus with hyperglycemia (ICD-10 - E11.65) [facility] 09-22-2023 Evaluation note* Encounter Date Diagnosis Assessment Notes Treatment Notes Treatment Clinical Notes Jun, Type 2 diabetes mellitus with hyperglycemia (ICD-10 - E11.65) [facility] 08-17-2023 Evaluation note* Encounter Date Diagnosis Assessment Notes Treatment Notes Treatment Clinical Notes May, Left hip pain (ICD-10 - M25.552) XR Images and final report reviewed, XR shows no evidence of acute abnormalities. Discussed degenerative findings with patient. Encouraged use of ice/heat application, OTC Tylenol and/or Naproxen, Lidocaine patches. Patient currently follows with Ortho. Advised that this can be managed by Ortho or PCP. Work note provided x 3 days, no extension allowed. Patient verbalizes understanding and is agreeable with treatment plan [facility] 08-17-2023 Evaluation note* Encounter Date Diagnosis Assessment Notes Treatment Notes Treatment Clinical Notes May, Left hip pain (ICD-10 - M25.552) [facility] 05-02-2023 Evaluation note* Encounter Date Diagnosis Assessment Notes Treatment Notes Treatment Clinical Notes February, Type 2 diabetes mellitus with hyperglycemia, unspecified whether watermaster insulin use (ICD-10 - E11.65) [facility] 04-28-2023 Evaluation note* Encounter Date Diagnosis Assessment Notes Treatment Notes Treatment Clinical Notes Jan, Viral URI with cough (ICD-10 - J06.9) Testing performed today in office. Advised patient that will treat as viral URI. Supportive care as directed, increase fluids and rest, Tylenol/Motrin as directed, OTC cough/cold remedies as directed on packaging, cool mist humidifier, throat lozenges. Discussed infection control practices such as good hand washing and mask wearing. Work note provided, no extension allowed. Patient to follow up with PCP if symptoms persist or worsen despite treatment. Immediate eval for SOB, difficulty, chest pain, fevers that do not break with antipyretic or any other concerning symptoms as reviewed on patient education handout. Patient verbalizes understanding and is agreeable to treatment plan. Patient left in stable condition. [facility] Other 04-12-2023 Evaluation note* Encounter Date Diagnosis Assessment Notes Treatment Notes Treatment Clinical Notes Jan, Type 2 diabetes mellitus with hyperglycemia, unspecified whether usp insulin use (ICD-10 - E11.65) [facility] 04-03-2023 Evaluation note* Encounter Date Diagnosis Assessment Notes Treatment Notes Treatment Clinical Notes Jan, Type 2 diabetes mellitus with hyperglycemia (ICD-10 - E11.65) [facility] 03-23-2023 Evaluation note* Encounter Date Diagnosis Assessment Notes Treatment Notes Treatment Clinical Notes Dec, Essential (primary) hypertension (ICD-10 - I10) This patient is instructed to consume a healthy, low-fat, low-salt diet. They are also encouraged to continue exercise to achieve/maintain a normal BMI. Dec, Obstructive sleep apnea (ICD-10 - G47.33) This patient is aware of the benefits associated with ELENITA: With continued use, the patient reduces the risk for [place], CVA, HTN, cardiac dysrhythmias and sudden cardiac deaths.The patient is also aware of the association between ELENITA and morning headaches, daytime somnolence, fatigue and obesity, which also has been improved with continued use.The patient is compliant with treatment, wearing the equipment every night for greater than 4 hours.The patient is instructed to continue use of the CPAP for ELENITA treatment. Dec, Chronic venous insufficiency (ICD-10 - I87.2) Avoid salt and elevate lower extremities, support stockings, inspect legs and feet daily for blisters and ulcerations. Dec, Hyperlipidemia type II (ICD-10 - E78.01) Diet and exercise with continued statin therapy. Dec, Longstanding persistent atrial fibrillation (ICD-10 - I48.11) Dec, Type 2 diabetes mellitus with hyperglycemia (ICD-10 - E11.65) This patient is following a comprehensive diabetic treatment plan. They are checking their feet daily for calluses and nonhealing ulcers. They are being seen for yearly dilated eye examinations. Goals: SBP less than 130, LDL less than 100, FBS less than 140, AC and A1C less than 7%. They are checking their BS daily, will which are reviewed at the office visit. Dec, residential (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 (ICD-10 - Z79.4) Dec, Morbid exogenous obesity (ICD-10 - E66.01) This patient has been instructed on a low-fat, high-fiber diet. They are instructed to reduce calories, portion sizes and snacks. It is recommended that they exercise for 30 minutes, 3-5 times weekly. Dec, Acute right-sided thoracic back pain (ICD-10 - M54.6) Heat/ice and lidocaine. Monitor for rash of HZV Stretching exercises [facility] Other 03-07-2023 Evaluation note* Encounter Date Diagnosis Assessment Notes Treatment Notes Treatment Clinical Notes Dec, Type 2 diabetes mellitus with hyperglycemia, without long-term current use of insulin (ICD-10 - E11.65) [facility] Other 02-06-2023 Evaluation note* Encounter Date Diagnosis Assessment Notes Treatment Notes Treatment Clinical Notes Nov, Type 2 diabetes mellitus with hyperglycemia, without long-term current use of insulin (ICD-10 - E11.65) [facility] 01-13-2023 Evaluation note* Encounter Date Diagnosis Assessment Notes Treatment Notes Treatment Clinical Notes Oct, Essential (primary) hypertension (ICD-10 - I10) This patient is instructed to consume a healthy, low-fat, low-salt diet. They are also encouraged to continue exercise to achieve/maintain a normal BMI. Oct, Wellness examination (ICD-10 - Z00.00) Oct, Obstructive sleep apnea (ICD-10 - G47.33) This patient is aware of the benefits associated with ELENITA: With continued use, the patient reduces the risk for [place], CVA, HTN, cardiac dysrhythmias and sudden cardiac deaths. The patient is also aware of the association between ELENITA and morning headaches, daytime somnolence, fatigue and obesity, which also has been improved with continued use. The patient is compliant with treatment, wearing the equipment every night for greater than 4 hours. The patient is instructed to continue use of the CPAP for ELENITA treatment. Oct, Chronic venous insufficiency (ICD-10 - I87.2) Avoid salt and elevate lower extremities, support stockings, inspect legs and feet daily for blisters and ulcerations. Oct, Hyperlipidemia type II (ICD-10 - E78.01) Diet and exercise with continued statin therapy. Oct, Type 2 diabetes mellitus with hyperglycemia, unspecified whether watermaster insulin use (ICD-10 - E11.65) This patient is following a comprehensive diabetic treatment plan. They are checking their feet daily for calluses and nonhealing ulcers. They are being seen for yearly dilated eye examinations. Goals: SBP less than 130, LDL less than 100, FBS less than 140, AC and A1C less than 7%. They are checking their BS daily, will which are reviewed at the office visit. A1C: Oct, Tubulovillous adenoma of colon (ICD-10 - D12.6) Oct, Morbid exogenous obesity (ICD-10 - E66.01) This patient is aware of the benefits associated with ELENITA: With continued use, the patient reduces the risk for [place], CVA, HTN, cardiac dysrhythmias and sudden cardiac deaths. The patient is also aware of the association between ELENITA and morning headaches, daytime somnolence, fatigue and obesity, which also has been improved with continued use. The patient is compliant with treatment, wearing the equipment every night for greater than 4 hours. The patient is instructed to continue use of the CPAP for ELENITA treatment. Oct, Longstanding persistent atrial fibrillation (ICD-10 - I48.11) Rate control w/ AC w/ Warfarin to prevent thromboembolic event Oct, Annual physical exam (ICD-10 - Z00.00) [facility] [id number] [facility] Encounter Date Diagnosis Assessment Notes Treatment Notes Treatment Clinical Notes Apr, Cough (ICD-10 - R05.9) Apr, COVID-19 (ICD-10 - U07.1) Rapid COVID test performed in office today. Advised patient that test was positive. Instructed patient to isolate per CDC guidelines for 5 days from symptom onset, mask 5 days following. May return to work/activities outside home after isolation period as long as symptoms are improving and has been afebrile for 24 hours without use of antipyretic. Advised patient that treatment of COVID is with viral supportive care, OTC cold medications as directed, Tylenol/Motrin as needed for body aches/fever. Increase fluids and rest. Encouraged use of cool mist humidifier. Follow-up with PCP to advise of positive result and further management. Immediate eval for SOB, difficulty, chest pain, fevers that do not break with antipyretic or any other concerning symptoms as reviewed on patient education handout. Patient verbalizes understanding and is agreeable to treatment plan. Patient left in stable condition [facility] Other 10-24-2021 Evaluation note* Encounter Date Diagnosis Assessment Notes Treatment Notes Treatment Clinical Notes Jul, Contact with and (suspected) exposure to other viral communicable diseases (ICD-10 - Z20.828) Advised patient that COVID antigen test was negative today. Advised patient that these symptoms could be related to recent shot. Supportive care as directed, increase fluids and rest, Tylenol/Motrin as directed, OTC cough/cold remedies as directed on packaging, cool mist humidifier, throat lozenges. Discussed infection control practices such as good hand washing and mask wearing. Patient to follow-up with UC or PCP for persistent or worsening sx despite tx for COVID PCR test. Immediate eval by ER for warning s/sx as discussed, including but not limited to, SOB, difficulty breathing, chest pain, palpitations, fever >103 or fevers that are not reduced with antipyretic, significant dehydration (unable to keep fluids or food down, persistent vomiting/diarrhea) , abdominal pain, lethargy, severe headache. Patient was provided with education hand sheet. Patient verbalizes understanding and is agreeable to treatment plan Jul, Other Additional time spent conducting pre-visit phone call, screening for symptoms, instructions on social distancing, application and removal of PPE, and cleaning of examination room, equipment and supplies was preformed. Patient education given for testing methodology and results. Patient care instructions given in writting by [facility] Care At Home document [facility] Other Evaluation noteNo assessment information available [facility] Work Phone: Evaluation noteNo InformationNortPenn High[facility] Other Evaluation note* Diagnosis Onset Date Resolution Status Atrial fibrillation acute Chronic venous insufficiency of lower extremity acute Hypercholesterolemia acute Hypertension acute ELENITA (obstructive sleep apnea) acute Type 2 diabetes mellitus with hyperglycemia acute [facility] Work Phone: History and physical note Author Deon Greene [facility] October 07, 2022 9:27am Note Date/Time October 07, 2022 9:27am [facility] [address] [place] [address] Gastroenterology H&P Signed Patient: Salomón Rush MR#: [id number] : 1960 Acct:[id number] Age/Sex: 61 / M Adm Date: 2 Loc: Room: Type: [facility] Attending Dr: Deon Greene MD Copies to: DO Deon Coronado MD~ Date of Service: 10/07/2022 HISTORY & PHYSICAL: Patient's history with special attention to the cardiovascular, pulmonary systems and the current problem was reviewed with the patient immediately prior to the procedure. Present medications and doses reviewed in the EMR. Allergies and pertinent laboratory tests were also reviewedat this time in the EMR. The physical examination, as below, was then performed. Indication, assessment and HPI: 61-year-old male presents for surveillance colonoscopy Family history of GI malignancy? No PHYSICAL EXAMINATION Mouth and Pharynx : Moist mucus membranes, normal dentition Cardiac: Regular rate, regular rhythm Pulmonary: Clear to auscultation bilaterally, no wheezing Neurological: Alert and oriented x3, no focal deficits noted Abdomen: Abdomen soft, non-tender REVIEW OF SYSTEMS Constitutional: Denies malaise, fevers Cardiovascular: Denies chest pain, palpitations Respiratory: Denies shortness of breath, wheezing Gastrointestinal: Per HPI Genitourinary: Denies dysuria, polyuria Musculoskeletal: Denies joint swelling, joint stiffness Neurological: Denies numbness, tingling Integumentary: Denies rashes, skin lesions Endocrine: Denies fatigue, weight loss Written informed consent obtained from the patient. Risks (including but not limited to perforation, infection, bloating, bleeding, need for emergent surgeryand loss of life), benefits and alternatives explained and questions answered. The patient verbalized understanding. Based on history patient is an appropriate candidate for the procedure. Deon Greene MD Documented By: Deon Greene MD 10/07/22925 Signed By: <Electronically signed by Deon Greene MD> 10/07/22926 [facility] Work Phone: [facility] general Narrative - Reported* Type Description Date Medical History hypertension Medical History Diabetes Medical History a. 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 Medical History Chronic venous insufficiency Medical History Hypokalemia Medical History Essential (primary) hypertension Medical History Obstructive sleep apnea Medical History Obesities, morbid Medical History Hyperlipidemia type II Medical History Primary osteoarthritis of knees, bilateral Medical History Paroxysmal atrial fibrillation Medical History Idiopathic urticaria Surgical History RIGHT rotator cuff repair Surgical History LEFT cataract 2008 Surgical History bilateral knee arthroscopy Surgical History EGD 06/2021 Surgical History COLONOSCOPY 09/2022 Surgical History SUBACROMIAL DECOMPRESSION 2002 Hospitalization History SEE SURGICAL HX [facility] Other Hospital Discharge instructions Additional Instructions DISCHARGE INSTRUCTIONS FOR COLONOSCOPY WHAT TO EXPECT: - You may feel full, gassy or cramping after your procedure. In some cases, this may be from a few hours to a day. Walking may help relieve the discomfort. - If you have polyp(s) removed you may note some minor bloody discharge after your first bowel movements. - You should begin to recover from anesthesia within 1 hour of the procedure, however may feel groggy for the next 24 hours. DO's AND DON'Ts: - Call your doctor right away if you have a hard abdomen, severe pain, are passing lots of bright red blood or clots. - Call your doctor if you develop any rashes, hives or difficulty breathing. - Let your doctor know if you have not had a bowel movement by 3 days after your procedure. - If you take 81 mg aspirin for your heart it is safe to resume this medication. - If you take other blood thinner medications your doctor will instruct you when these can safely be resumed. - Do NOT drive for 24 hours. - Do NOT operate machinery such as power tools, lawn mowers, snow blowers, sewing machines, etc. for 24 hours. - Avoid alcoholic beverages and drugs for allergies, nerves, or sleep. - Do NOT stay alone. Do NOT leave your child unattended. - Do NOT make important personal or business decisions or sign any legal documents. - Eat solid foods and drink liquids in smaller amounts than usual until normal appetite returns. If you should experience an upset stomach, liquids high in sugar content (soda, El-Aid, non-acid juices) are recommended. - You can resume normal activities tomorrow. FOLLOW UP & RECOMMENDATIONS: - You can restart your Xarelto in an additional 48 hours - Follow-up with Dr. Greene as needed - Notify the doctor if you have any problems. - Follow up with PCP. - Office number [phone].[facility] Work Phone: Reason for referral (narrative)* Reason *FU 11/28 Referral for persistent atrial fibrillation. Diagnosis 1 Chronic atrial fibri llation (I48.20) Referral Organization [facility] Chela joyner Referring Provider First Name Delonte Referring Provider Last Name Nikhil Referring Provider Specialty Internal Me kalani Referred Organization [facility] Referred Provider Felipe Fatima Referred Address [address] [place], [place],[address] Referred Provider Specialty Cardiology Referral Priority Routine General Notes Mr. Rush developed paroxysmal atrial fibrillation several years ago. Beginning about 2 years ago, he developed persistent atrial fibrillation. Since he was asymptomatic and anticoagulated, no treatment was pursued. However, recently he developed resting tachycardia, requiring adjustment in his medications. He was referred and initiated treatment for ELENITA. He is being referred for further evaluation and treatment to restore NSR. Diane Anthony 11/23/2023 04:33:37 PM >received today, attachments made, notes locked, referral faxed Clinical Notes Include recent Echo f: [id number] [facility] Other Summary Purpose Family History Relationship Condition Age at Onset Recorded Date/T cristy father Malignant neoplasm of esophagus Unknown Not Specified Lymphoma Unknown sister Rheumatoid arthritis Unknown Liver cirrhosis seco ndary to nonalcoholic steatohepatitis (ESPOSITO) Unknown Diabetes mellitus Unknown Relationship Condition Age at Onset Recorded Date/T cristy father Malignant neoplasm of esophagus Unknown Not Specified Lymphoma Unknown sister Rheumatoid arthritis Unknown Liver cirrhosis seco ndary to nonalcoholic steatohepatitis (ESPOSITO) Unknown Diabetes mellitus Unknown father Malignant neoplasm Unknown Unknown Not Specified Malignant neoplasm Unknown Heart disease Unknown sister Unknown Advance Directives Advance Directive Response Recorded Date/ Time Advance Directives No June 9:18am Advance Directive Response Recorded Date/ Time Advance Directives No June 10:18am Chief Complaint and Reason for Visit Chief Complaint Hx of Colon Polyps Chief Complaint I48.20 R06.02 Chief Complaint Amb Documentation 4 month follow up Reason for Visit Atrial fibrillation Chronic venous insufficiency of lower extremity Hypercholesterolemia Hypertension ELENITA (obstructive sleep apnea) Type 2 diabetes mellitus with hyperglycemia Additional Source Comments REASON FOR VISIT (unrecogniz ed section and content) #15 BLACK JEEP, HIARRHEA, NA USEA, NASAL CONGESTION [id number] JEEP, COUGH, SORE THROAT, POSITIVE HOME TESTNo InformationWELLNESSNo InformationDifferent MedicationOzempic increasePossible Pulled MusclerefillNo InformationOzempicchest/head coldmed refillHRHRLeft hip painWants on TodayNo InformationOzempicNo Information3 month Follow upPrescription ReminderEKG resultsNo InformationWELLNESSWELLNESS (unrecognized sect ion and content) No Status Records FoundNo Status Records FoundNo Status Records FoundNo Status Records Found INFORMATION SOURCE (unrecogn ized section and content) DATE CREATED AUTHOR 07/22/2022 [facility] DATE CREATED AUTHOR AUTHOR'S ORGANIZ ATION 02/21/2023 [facility] DATE CREATED AUTHOR AUTHOR'S ORGANIZ ATION 10/30/2023 [facility] DATE CREATED AUTHOR AUTHOR'S ORGANIZ ATION 01/21/2024 [facility] Care Teams (unrecognized sec tion and content) Team Status: Active Member Role Status Dates Delonte Tejeda , DO Primary Care Provider Active Team Status: Active Member Role Status Dates Delonte Tejeda , DO Primary Care Provide r, Attending Provider Active Start: December 18, 2023 Team Status: Inactive Member Role Status Dates Delonte Tejeda , DO Primary Care Provide r, Attending Provider Active Start: March 12, 2024 End: March 12, 2024 Team Status: Inactive Member Role Status Dates Delonte Tejeda , DO Primary Care Provider Active Deon Greene MD Attending Provider Active Team Status: Active Member Role Status Dates Delonte Tejeda , DO Primary Care Provider Active Team Status: Inactive Member Role Status Dates Delonte Tejeda , DO Primary Care Provider Active Bonny Raymundo APRN Attending Provider Active Team Status: Inactive Member Role Status Dates Delonte Tejeda , DO Primary Care Provider, Attending Addison caban Active Team Status: Active Member Role Status Dates Delonte Tejeda , DO Primary Care Provide r, Attending Provider Active Start: December 18, 2023 Team Status: Inactive Member Role Status Dates Delonte Tejeda , DO Primary Care Provide r, Attending Provider Active Start: March 12, 2024 End: March 12, 2024 Goals (unrecognized section and content) Goals may be documented in a n alternate section FOR RECORDS PERTAINING TO PATIENTS WHO ARE OR HAVE BEEN ENROLLED IN A CHEMICAL DEPENDENCY/SUBSTANCEABUSE PROGRAM, SOME INFORMATION MAY BE OMITTED. This clinical summary was aggregated from multiple sources. Caution should be exercised in using it in the provision of clinical care. This summary normalizes information from multiple sources, and as a consequence, information in this document may materially change the coding, format and clinical context of patient data. In addition, data may be omitted in some cases. CLINICAL DECISIONS SHOULD BE BASED ON THE PRIMARY CLINICAL RECORDS. [facility]. provides no warranty or guarantee of the accuracy or completeness of information in this document.
[2024-03-18 10:10] LABS: Basophils Percent Auto 0.5 % (0.2-2.0); Eosinophils Absolute Auto 0.1 10^3/uL (0.0-0.7); Eosinophils Percent Auto 2.1 % (0.9-7.0); Hematocrit 36.7 % (42.0-54.0); Hemoglobin 11.9 g/dL (14.0-18.0); Immature Granulocytes Abs Auto 0.02 10^3/uL (0.00-0.03); Immature Granulocytes Pct Auto 0.3 % (0.0-0.5); Lymphocytes Absolute Auto 1.2 10^3/uL (1.2-3.8); Lymphocytes Percent Auto 18.9 % (20.5-60.0); Mean Corpuscular HGB Conc 32.4 g/dL (29.9-35.2); Mean Corpuscular Hemoglobin 33.1 pg (25.9-34.0); Mean Corpuscular Volume 102.2 fL (80.0-94.0); Mean Platelet Volume 11.7 fL (9.5-13.5); Monocytes Absolute Auto 0.5 10^3/uL (0.3-0.8); Monocytes Percent Auto 8.1 % (1.7-12.0); Neutrophils Absolute Auto 4.4 10^3/uL (1.4-6.5); Neutrophils Percent Auto 70.1 % (43.0-75.0); Platelet Count 120 10^3/uL (150-450); Red Blood Count 3.59 10^6/uL (4.70-6.10); Red Cell Distribution Width 12.9 % (11.0-15.0); White Blood Count 6.2 10^3/uL (4.0-11.0)
[2024-03-18 10:14] LABS: Anion Gap 15.7; BUN Creatinine Ratio 22.5; Calcium 8.5 mg/dL (8.5-10.1); Carbon Dioxide 24.7 mmol/L (21.0-32.0); Chloride 102 mmol/L (98-107); Estimated GFR (African America 48 (>=60); Estimated GFR (Non-African Ame 40 (>=60); Glucose 250 mg/dL (74-106); Potassium 4.4 mmol/L (3.5-5.1); Sodium 138 mmol/L (136-145)
== END 2024-03-18 09:33 | disposition home or self-care (01) ==
LOC: LAB 09:33
PROVIDERS: PCP Internal Medicine; Visit Provider Internal Medicine Cardiovascular Disease
DX: I48.0 Paroxysmal atrial fibrillation (principal)
CPT/HCPCS: 36415; 80048; 85025

== ENCOUNTER 2024-07-16 12:20 | Outpatient (OUT) | payer OTHER, SELFPAY ==
--- OUTSIDE RECORDS SUMMARY | 2024-07-16 12:22 | XMS_ITS | CCD ---
Author Organization [facility] Care Team Providers Care Director Gift Name Role Phone Remberto Bonny Unavailable Bonny Raymundo Unavailable Malik MOLINA Attending Unavailable BALL PROVIDER, DELONTE Referring Unavaila ble DO Delonte Tejeda Primary Care Provider MD Deon Greene Attending Provider [phone] Delonte Tejeda Unavailable NIKHIL, DR BEST Consulting [...] BEST Primary Care Unavailable REQUEST, NONE LISTED Admitting Unavaila ble REQUEST, DR RICARDO LISTED Attending Unavaila ble BALL, DR BEST Primary Care Unavailable BALL, DR BEST Consulting Unavailable REQUEST, NONE LISTED Admitting Unavaila ble REQUEST, NONE LISTED Attending Unavaila ble BALL, DR BEST Primary Care Unavailable DO Delonte Tejeda Primary Care Provider [phone] GABRIELLA Raymundo Attending Provider DO Delonte Tejeda Primary Care Provider [phone] DO Delonte Tejeda Attending Provider [phone] Delonte Tejeda Admitting Unavailable Delonte Tejeda Primary Care Unavailable Delonte Tejeda Attending Unavailable Bonny Raymundo Admitting Unavailable Bonny Raymundo Attending Unavailable Delonte Tejeda Primary Care Unavailable FELIPE FATIMA Admitting Unavailable FELIPE FATIMA Attending Unavailable FELIPE FATIMA Referring Unavailable FELIPE FATIMA Referring Unavailable FELIPE FATIMA Attending Unavailable KOLBY AMBROCIO Attending Unavailable REGINO, LACHO Attending Unavailable Medications Current Medications Medication Drug [...] tablet (13 sources) Nonsteroidal Anti-inflammatory Drug Start: 3 take 1 tablet by mouth every twelve hours Etodolac 500 MG 1 tablet with food Orally Twice a day for 15 days Dec, Active furosemide 40 mg oral tablet (20 sources) Loop Diuretic Start: 4 take 1 tablet by mouth once daily [...] THE SKIN TWO TIMES A DAY for Active inject 50 [IU] by enciso bcutaneous [...] Paroxysmal atrial fibrillation; Translations: [Paroxysmal atrial fibrillation] Onset: 01-22-2024 03-10-2024 Chronic Deficiency and other anemia (20 [...] sources) Long-term current use of insulin; Translations: [group home (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] Episodic Other and unspecified benign neoplasm (20 [...] [Obstructive sleep apnea (adult)(pediatric)] Onset: 06-05-2022 Chronic Residual codes; unclassified (2 sources) Personal history of other medical treatment; Translations: [Personal history of other medical treatment] Onset: 04-21-2024 Episodic Spondylosis; intervertebral disc disorders; other back [...] knee, initial encounter] Onset: 01-14-2018 Episodic Other aftercare (6 sources) 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; Translations: [group home (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] Onset: 12-16-2023 Episodic Other and unspecified benign neoplasm (5 [...] thoracic spine; Translations: [Low back pain] Onset: 05-12-2015 Episodic Unclassified (1 source) Cough R05.9 Onset: 05-19-2022 Resolved: 05-19-2022 Unclassified (4 sources) Chronic atrial fibrillation, unspecified Viral infection (1 source) COVID-19 Onset: 05-19-2022 Resolved: 05-19-2022 Results Test Name Value Interpretation Reference Range Facility Office Visiton 04-21-2024 Follow-up visit [id number] Rosalind Rush 1960 M Date Provider Department Center 04/21/2024 120-REGINO, LACHO BH C[facility] Family History Problem Relation Age of Onset Cancer Mother Heart disease Mother Cancer Father Family Status - Relation Status Age at Mother Father Level of Service:59523 [place] POSTOP FOLLOW UP VISIT RELATED TO ORIGINAL PX Normal [facility] HPon 03-24-[address] [facility] Electrophysiology Consult Note Reason for visit: persistent [...] any shortness of breath, chest pain, fatigue. [id number] at least 2 for hypertension, DM 2, [...] Determinants of Health Tobacco Use: Medium Risk (03/16/2024) Patient History Smoking Tobacco Use: Former Smokeless Tobacco Use: Never Passive Exposure: Not on file Alcohol Use: Not on file Financial Resource Strain: Not on file Food Insecurity: Not on file Transportation Needs: Not on file Physical Activity: Not on file Stress: Not on file Social Connections: Not on file Intimate Partner Violence: Unknown (12/11/2023) [place] Safety & Environment Fear of Current or Ex-Partner: Not on file Emotionally Abused: Not on file Physically Abused: Not on file Sexually Abused: Not on file Physically or Sexually Abused: Not on file Depression: Not on file Housing Stability: Not on file Utilities: Not on file Allergies: No Known Allergies Weight: 143kg Visit Vitals BP 129/76 Pulse 88 Resp 17 Ht 1.778 m (5' 10 ) Wt (!) 145 kg (320 lb) SpO2 99% BMI 45.92 kg/m??? Smoking Status Former BSA 2.68 m??? Meds: No current facility-administered medications on file prior to encounter. Current Outpatient Medications on File Prior to Encounter Medication Sig Dispense Refill allopurinol (Zyloprim) 300 [...] 0.5 mg(2 mg/1.5 mL) pen injector Inject 0.25 mg under the skin 1 (one) time per week. On Mondays ROS: Review of Systems Cardiovascular: Positive for [...] non distended, no bruit, non tender Musculoskeletal Inspection: no joint swelling Neurologic Gait (more content not included)... [facility] NURSNOTEon 03-24-2024 NURSNOTE RN educated pt on d/ c instructions. RN encouraged pt to voice any questions or concerns. Pt verbalizes no questions or concerns at this time. Pt was wheeled off of unit with all of belongings. [facility] Orders Onlyon 03-16-2024 Orders Only [id number] Rosalind Rush 1960 M Date Provider Department Center 03/16/2024 [facility] Family History Problem Relation Age of Onset Cancer Mother Heart disease Mother Cancer Father Family Status - Relation Status Age at Mother Father Normal [facility] Office Visiton 01-20-2024 Follow-up visit [id number] Rosalind Rush 1960 M Date Provider Department Center 01/20/2024 [facility] Family History Problem Relation Age of Onset Cancer Mother Heart disease Mother Cancer Father Family Status - Relation Status Age at Mother Father Level of Service:35670 [place] OFFICE/OUTPATIENT NEW MODERATE MDM 45 MINUTES Reason for Visit and Comments: Follow-up [286012] Normal [facility] Orders Onlyon 01-20-2024 Orders Only [id number] Rosalind Rush [place] 1960 M Date Provider Department Center 01/20/2024 FATEMEH RODAS DUD[facility] Family History Problem Relation Age of Onset Cancer Mother Heart disease Mother Cancer Father Family Status - Relation Status Age at Mother Father Normal [facility] 29on 12-17-2023 29 Addended by: BETSY PABLO on: 12/17/2023 10:20 AM Modules accepted: Orders Normal [facility] Office Visiton 12-17-2023 Follow-up visit [id number] Rosalind Rush [place] 1960 Date Provider Department Center 12/17/2023 KOLBY ROSS DUD[facility] Family History Problem Relation Age of Onset Cancer Mother Heart disease Mother Cancer Father Family Status - Relation Status Age at Mother Father Level of Service:31753 [place] OFFICE/OUTPATIENT NEW MODERATE MDM 45 MINUTES Normal [facility] ECH echo transthoracicon ECH echo transthoracic [place] [address] Echocardiogram Signed Patient: Salomón Rush MR#: [id number] 90 : 1960 Acct:[id number] Age/Sex: 62 / M ADM Date: 10/17/23 Loc: Room: Type: [facility] Attending Dr: Delonte Tejeda DO Ordering Provider: Delonte Tejeda DO Date of Service: 10/17/23/ [facility] echo transthoracic: Chronic Afib. SOB. Copies to: [...] Signed By: Ortiz Singletary MD 10/17/23 1304 [facility] XR hip LT min 2V(w/wo pelvis )*on 06-05-2023 XR hip LT min 2V(w/wo pelvis)* [place] [address] XRay Report Signed Patient: Salomón Rush MR#: [id number] 90 : 1960 Acct:[id number] Age/Sex: 62 / M ADM Date: 06/05/23 Loc: XDUCLY Room: Type: [facility] Attending Dr: Bonny Raymundo APRN Copies to: [...] Calvin Thibodeaux M.D.06/05/2023 12:25 PM Dictation Location: [place] [address] Transcribed By: [facility] 06/05/23 1225 Dictated By: Calvin Thibodeaux II, MD 06/05/23 1223 Signed By: 06/05/23 1225 Normal [facility] XR hip LT min 2V(w/wo pelvis)* [facility] Other XR hip LT min 2V(w/wo pelvis)* [facility] Other XR hip LT min 2V(w/wo pelvis)* [address] [place] [address] [facility] Other XR hip LT min 2V(w/wo pelvis)* [place] [address] [facility] Other XR hip LT min 2V(w/wo pelvis)* XRay Report [facility] Other XR hip LT min 2V(w/wo pelvis)* Signed [facility] Other XR hip LT min 2V(w/wo pelvis)* Patient: Salomón Rush MR#: [id number] [facility] Other XR hip LT min 2V(w/wo pelvis)* 90 [facility] Other XR hip LT min 2V(w/wo pelvis)* : 1960 Acct:[id number] [facility] Other XR hip LT min 2V(w/wo pelvis)* Age/Sex: 62 / M ADM Date: 06/05/23 [facility] Other XR hip LT min 2V(w/wo pelvis)* Loc: XDUCLY Room: Type: REG CLI [facility] Other XR hip LT min 2V(w/wo pelvis)* Attending Dr: Bonny Raymundo [facility] Other XR hip LT min 2V(w/wo pelvis)* Copies to: Bonny Raymundo APRN [facility] Other XR hip LT min 2V(w/wo pelvis)* Ordering Provider: Bonny Raymundo APRN [facility] Other XR hip LT min 2V(w/wo pelvis)* Date of Service: 06/05/23 [facility] Other XR hip LT min 2V(w/wo pelvis)* XR/XR hip LT min 2V(w/wo pelvis)*: Left hip pain [facility] Other XR hip LT min 2V(w/wo pelvis)* XR hip LT min 2V(w/wo pelvis)* 06/05/2023 11:57 AM [facility] Other XR hip LT min 2V(w/wo pelvis)* SIGNS AND SYMPTOMS: Left hip pain [facility] Other XR hip LT min 2V(w/wo pelvis)* PROTOCOL: Frontal radiograph of the pelvis with frontal and frog-leg views of the left hip [facility] Other XR hip LT min 2V(w/wo pelvis)* COMPARISON: None [facility] Other XR hip LT min 2V(w/wo pelvis)* FINDINGS: [facility] Other XR hip LT min 2V(w/wo pelvis)* There is mild narrowing of the joint spaces of the hips. Degenerative changes are noted in the [facility] Other XR hip LT min 2V(w/wo pelvis)* lumbar spine and sacroiliac joints. The bony ring of the pelvis is intact. There is no fracture or [facility] Other XR hip LT min 2V(w/wo pelvis)* dislocation. Vascular calcifications are present. [facility] Other XR hip LT min 2V(w/wo pelvis)* XR/XR hip LT min 2V(w/wo pelvis)* [facility] Other XR hip LT min 2V(w/wo pelvis)* IMPRESSION: [facility] Other XR hip LT min 2V(w/wo pelvis)* No fracture or dislocation. [facility] Other XR hip LT min 2V(w/wo pelvis)* Degenerative changes are noted in the lumbar spine and sacroiliac joints. [facility] Other XR hip LT min 2V(w/wo pelvis)* Impression dictated by: Calvin Thibodeaux M.D.06/05/2023 12:25 PM [facility] Other XR hip LT min 2V(w/wo pelvis)* Dictation Location: [place] [address] [facility] Other XR hip LT min 2V(w/wo pelvis)* Transcribed By: NORMA 06/05/23 1225 [facility] Other XR hip LT min 2V(w/wo pelvis)* Dictated By: Calvin Thibodeaux II, MD 06/05/23 1223 [facility] Other XR hip LT min 2V(w/wo pelvis)* Signed By: [facility] Other XR hip LT min 2V(w/wo pelvis)* 06/05/23 1225 [facility] Other CBC AUTO DIFFon 02-21-2023 BASO # 0.1 103/ul Normal 0.0-0.1 [facility] Comment on above: Performed By: #### L IPID, T4, TSH, CMP #### [facility] [address] [place] [address] Dr. Rena Barone Basophils/100 WBC (Bld) 0.4 % Normal 0.2-2.0 [place] Comment on above: Performed By: #### L IPID, T4, TSH, CMP #### [facility] [address] [place] [address] Dr. Rena Barone EO # 0.4 103/ul Normal 0.0-0.7 [facility] Comment on above: Performed By: #### L IPID, T4, TSH, CMP #### [facility] [address] [place] [address] Dr. Rena Barone Eosinophils/100 WBC (Bld) 3.1 % Normal 0.9-7.0 [place] Comment on above: Performed By: #### L IPID, T4, TSH, CMP #### [facility] [address] [place] [address] Dr. Rena Barone Erythrocyte distribution width (RBC) [Ratio] 12.5 % Normal 11.0-15.0 [place] Comment on above: Performed By: #### L IPID, T4, TSH, CMP #### [facility] [address] [place] [address] Dr. Rena Barone Hematocrit (Bld) [Volume fraction] 38.9 % Critically low 42.0-54.0 [place] Comment on above: Performed By: #### L IPID, T4, TSH, CMP #### [facility] [address] [place] [address] Dr. Rena Barone Hemoglobin (Bld) [Mass/Vol] 13.2 g/dL Critically low 14.0-18.0 [place] Comment on above: Performed By: #### L IPID, T4, TSH, CMP #### [facility] [address] [place] [address] Dr. Rena Barone IG # 0.05 10e3/ul Critically high 0.00-0.03 [facility] Comment on above: Performed By: #### L IPID, T4, TSH, CMP #### [facility] [address] [place] [address] Dr. Rena Barone IG % 0.4 % Normal 0.0-0.5 [place] Comment on above: Performed By: #### L IPID, T4, TSH, CMP #### [facility] [address] [place] [address] Dr. Rena Barone LYMPH # 3.2 103/ul Normal 1.2-3.8 [place] Comment on above: Performed By: #### L IPID, T4, TSH, CMP #### [facility] [address] [place] [address] Dr. Rena Barone Lymphocytes/100 WBC (Bld) 28.6 % Normal 20.5-60.0 [place] Comment on above: Performed By: #### L IPID, T4, TSH, CMP #### [facility] [address] [place] [address] Dr. Rena Barone MANUAL DIFF REQ NO Normal [facility] Comment on above: Performed By: #### L IPID, T4, TSH, CMP #### [facility] [address] [place] [address] Dr. Rena Barone MCH (RBC) [Entitic mass] 33.7 pg Normal 25.9-34.0 [place] Comment on above: Performed By: #### L IPID, T4, TSH, CMP #### [facility] [address] [place] [address] Dr. Rena Barone MCHC (RBC) [Mass/Vol] 33.9 g/dL Normal 29.9-35.2 [place] Comment on above: Performed By: #### L IPID, T4, TSH, CMP #### [facility] [address] [place] [address] Dr. Rena Barone MCV (RBC) [Entitic vol] 99.2 fL Critically high 80.0-94.0 [place] Comment on above: Performed By: #### L IPID, T4, TSH, CMP #### [facility] [address] [place] [address] [address] Rena Barone MONO # 1.0 103/ul Critically high 0.3-0.8 [facility] Comment on above: Performed By: #### L IPID, T4, TSH, CMP #### [facility] [address] [place] [address] Dr. Rena Barone Monocytes/100 WBC (Bld) 8.8 % Normal 1.7-12.0 [facility] Comment on above: Performed By: #### L IPID, T4, TSH, CMP #### [facility] [address] [place] [address] Dr. Rena Barone NEUT # 6.6 103/ul Critically high 1.4-6.5 [facility] Comment on above: Performed By: #### L IPID, T4, TSH, CMP #### [facility] [address] [place] [address] Dr. Rena Barone Neutrophils/100 WBC (Bld) 58.7 % Normal 43.0-75.0 [facility] Comment on above: Performed By: #### L IPID, T4, TSH, CMP #### [facility] [address] [place] [address] Dr. Rena Barone Platelet mean volume (Bld) [Entitic vol] 11.2 fL Normal 9.5-13.5 [place] Comment on above: Performed By: #### L IPID, T4, TSH, CMP #### [facility] [address] [place] [address] Dr. Rena Barone PLT 202 103/ul Normal 150-450 [facility] Comment on above: Performed By: #### L IPID, T4, TSH, CMP #### [facility] [address] [place] [address] Dr. Rena Barone RBC 3.92 106/ul Critically low 4.70-6.10 [facility] Comment on above: Performed By: #### L IPID, T4, TSH, CMP #### [facility] [address] [place] [address] Dr. Rena Barone WBC 11.3 103/ul Critically high 4.0-11.0 [facility] Comment on above: Performed By: #### L IPID, T4, TSH, CMP #### [facility] [address] [place] [address] [address] Rena Barone LIPID PROFILEon 02-21-2023 CHOL-HDL RATIO NORM SEE BELOW Normal [facility] Comment on above: Result Comment: 3.3 - 4.4 LOW RISK 4.4 - 7.1 AVERAGE RISK 7.1 - 11.0 MODERATE RISK >11.0 HIGH RISK Performed By: #### L IPID, T4, TSH, CMP #### [facility] [address] [place] [address] [address] Rena Barone Cholesterol [Mass/Vol] 127 mg/dL Normal <=200 [place] Comment on above: Performed By: #### L IPID, T4, TSH, CMP #### [facility] [address] [place] [address] [address] Rena Barone Cholesterol in HDL [Mass/Vol] 24 mg/dL Critically low 40-60 [place] Comment on above: Performed By: #### L IPID, T4, TSH, CMP #### [facility] [address] [place] [address] [address] Rena Barone Cholesterol in LDL [Mass/Vol] 58.4 mg/dL Normal [place] Comment on above: Performed By: #### L IPID, T4, TSH, CMP #### [facility] [address] [place] [address] [address] Rena Barone Cholesterol.total/C holesterol in HDL [Mass ratio] 5.3 {ratio} Normal [place] Comment on above: Performed By: #### L IPID, T4, TSH, CMP #### [facility] [address] [place] [address] [address] Rena Barone HDL NORMAL > or = 60 mg/dl - LO W CARDIOVASCULAR RISK <40 mg/dl - HIGH CARDIOVASCULAR RISK Normal [place] Comment on above: Performed By: #### L IPID, T4, TSH, CMP #### [facility] [address] [place] [address] Dr. Rena Barone LDL CALC NORMAL SEE BELOW Normal [facility] Comment on above: Result Comment: <100 mg/dl OPTIMAL 100 - 129 mg/dl NEAR OR ABOVE OPTIMAL 130 - 159 mg/dl BORDERLINE HIGH 160 - 189 mg/dl HIGH >190 mg/dl VERY HIGH Performed By: #### L IPID, T4, TSH, CMP #### [facility] [address] [place] [address] [address] Rena Barone Triglyceride [Mass/Vol] 223 mg/dL Critically high <=150 [place] Comment on above: Performed By: #### L IPID, T4, TSH, CMP #### [facility] [address] [place] [address] [address] Rena Barone VLDL CALC 44.6 mg/dL Normal [place] Comment on above: Performed By: #### L IPID, T4, TSH, CMP #### [facility] [address] [place] [address] Dr. Rena Barone PROF 14(COMP METB)on 023 Albumin [Mass/Vol] 3.8 g/dL Normal 3.4-5.0 [facility] Comment on above: Performed By: #### L IPID, T4, TSH, CMP #### [facility] [address] [place] [address] Dr. Rena Barone Albumin/Globulin [Mass ratio] 0.9 {ratio} Normal [place] Comment on above: Performed By: #### L IPID, T4, TSH, CMP #### [facility] [address] [place] [address] [address] Rena Barone ALP [Catalytic activity/Vol] 99 U/L Normal 46-116 [facility] Comment on above: Performed By: #### L IPID, T4, TSH, CMP #### [facility] [address] [place] [address] [address] Rena Barone ALT [Catalytic activity/Vol] 31 U/L Normal 16-63 [place] Comment on above: Performed By: #### L IPID, T4, TSH, CMP #### [facility] [address] [place] [address] [address] Rena Barone Anion gap [Moles/Vol] 10.3 mmol/L Normal [place] Comment on above: Performed By: #### L IPID, T4, TSH, CMP #### [facility] [address] [place] [address] [address] Rena Barone AST [Catalytic activity/Vol] 23 U/L Normal 15-37 [place] Comment on above: Performed By: #### L IPID, T4, TSH, CMP #### [facility] [address] [place] [address] [address] Rena Barone Bilirubin [Mass/Vol] 0.5 mg/dL Normal 0.2-1.0 [place] Comment on above: Performed By: #### L IPID, T4, TSH, CMP #### [facility] [address] [place] [address] Dr. Rena Barone Calcium [Mass/Vol] 9.3 mg/dL Normal 8.5-10.1 [facility] Comment on above: Performed By: #### L IPID, T4, TSH, CMP #### [facility] [address] [place] [address] Dr. Rena Barone Chloride [Moles/Vol] 100 mmol/L Normal 98-107 [place] Comment on above: Performed By: #### L IPID, T4, TSH, CMP #### [facility] [address] [place] [address] Dr. Rena Barone CO2 [Moles/Vol] 25.9 mmol/L Normal 21.0-32.0 [facility] Comment on above: Performed By: #### L IPID, T4, TSH, CMP #### [facility] [address] [place] [address] Dr. Rena Barone Creatinine [Mass/Vol] 1.34 mg/dL Critically high 0.70-1.30 [place] Comment on above: Performed By: #### L IPID, T4, TSH, CMP #### [facility] [address] [place] [address] Dr. Rena Barone EGFR-AF GIBRALTARIAN >60 Normal >=60 [facility] Comment on above: Performed By: #### L IPID, T4, TSH, CMP #### [facility] [address] [place] [address] Dr. Rena Barone EGFR-NON AF GIBRALTARIAN 54 mL/min/1.73m2 Critically low >=60 [place] Comment on above: Performed By: #### L IPID, T4, TSH, CMP #### [facility] [address] [place] [address] Dr. Rena Barone Globulin (S) [Mass/Vol] 4.1 g/dL Normal [place] Comment on above: Performed By: #### L IPID, T4, TSH, CMP #### [facility] [address] [place] [address] Dr. Rena Barone Glucose [Mass/Vol] 108 mg/dL Critically high 74-106 [facility] Comment on above: Performed By: #### L IPID, T4, TSH, CMP #### [facility] [address] [place] [address] Dr. Rena Barone Potassium [Moles/Vol] 4.2 mmol/L Normal 3.5-5.1 [place] Comment on above: Performed By: #### L IPID, T4, TSH, CMP #### [facility] [address] [place] [address] Dr. Rena Barone Protein [Mass/Vol] 7.9 g/dL Normal 6.4-8.2 [facility] Comment on above: Performed By: #### L IPID, T4, TSH, CMP #### [facility] [address] [place] [address] Dr. Rena Barone Sodium [Moles/Vol] 132 mmol/L Critically low 136-145 [facility] Comment on above: Performed By: #### L IPID, T4, TSH, CMP #### [facility] [address] [place] [address] Dr. Rena Barone Urea nitrogen [Mass/Vol] 30.0 mg/dL Critically high 7.0-18.0 [place] Comment on above: Performed By: #### L IPID, T4, TSH, CMP #### [facility] [address] [place] [address] [address] Rena Barone Urea nitrogen/Creatinine [Mass ratio] 22.4 mg/mg Normal [place] Comment on above: Performed By: #### L IPID, T4, TSH, CMP #### [facility] [address] [place] [address] [address] Rena Barone T4on 02-21-2023 T4 [Mass/Vol] 5.20 ug/dL Normal 4.50-12.10 [facility] Comment on above: Performed By: #### L IPID, T4, TSH, CMP #### [facility] [address] [place] [address] [address] Rena Barone TSHon 02-21-2023 TSH 2.379 uIU/mL Normal 0.358-3.740 [facility] Comment on above: Performed By: #### L IPID, T4, TSH, CMP #### [facility] [address] [place] [address] [address] Rena Barone GLYCOHEMOGLOBIN A1Con 2022 ADA RECOMMENDATION SEE BELOW Normal [facility] Comment on above: Result Comment: ADA RECOMMENDED LIMIT 4.0 - 6.0 ADA THERAPEUTIC TARGET < 7.0 ACTION SUGGESTED > 7.0 Performed By: #### L IPID, T4, TSH, CMP #### [facility] [address] [place] [address] [address] Rena Barone Glucose [Mass/Vol] 169 mg/dL Normal [facility] Comment on above: Performed By: #### L IPID, T4, TSH, CMP #### [facility] [address] [place] [address] [address] Rena Barone HbA1c (Bld) [Mass fraction] 7.5 % Critically high 4.5-6.2 [place] Comment on above: Performed By: #### L IPID, T4, TSH, CMP #### [facility] [address] [place] [address] [address] Rena Barone Glucose Glucometer (BldC) [M ass/Vol]Ordered By: Deon Greene on 10-07-2022 Glucose [Mass/Vol] 170 mg/dL [facility] Comment on above: Random Glucose Refer ence Range is dependent on time and content of last meal. Glucose of more than 200 mg/dL in a nonstressed, ambulatory subject supports the diagnosis of Diabetes Mellitus. GLYCOHEMOGLOBIN A1Con 2021 ADA RECOMMENDATION SEE BELOW Normal [facility] Comment on above: Result Comment: ADA RECOMMENDED LIMIT 4.0 - 6.0 ADA THERAPEUTIC TARGET < 7.0 ACTION SUGGESTED > 7.0 Performed By: #### L IPID, T4, TSH, CMP #### [facility] [address] [address] [address] Rena Barone Glucose [Mass/Vol] 160 mg/dL Normal [facility] Comment on above: Performed By: #### L IPID, T4, TSH, CMP #### [facility] [address] [address] [address] Rena Barone HbA1c (Bld) [Mass fraction] 7.2 % Critically high 4.5-6.2 [place] Comment on above: Performed By: #### L IPID, T4, TSH, CMP #### [facility] [address] [address] [address] Rena Barone Physician Referralon 022 Physician Referral [id number] [phone] [id number] Normal [facility] COVID Quick Testingon 2021 Result Positive [facility] Other METHYLMALONIC ACID (MMA)on 0 03-23-2022 Methylmalonic Acid, Serum 210 nmol/L Normal 0-378 [place] Comment on above: Performed By: #### L IPID, T4, TSH, CMP #### [facility] [address] [address] [address] Rena Barone FOLATE ([facility])on 2 Folate 16.6 ng/mL Normal >3.0 [place] Comment on above: Result Comment: A se rum folate concentration of less than 3.1 ng/mL is considered to represent clinical deficiency. Performed By: #### L IPID, T4, TSH, CMP #### [facility] [address] [address] [address] Rena Barone GLYCOHEMOGLOBIN A1Con 2021 ADA RECOMMENDATION SEE BELOW Normal [facility] Comment on above: Result Comment: ADA RECOMMENDED LIMIT 4.0 - 6.0 ADA THERAPEUTIC TARGET < 7.0 ACTION SUGGESTED > 7.0 Performed By: #### L IPID, T4, TSH, CMP #### [facility] [address] [address] [address] Rena Barone Glucose [Mass/Vol] 160 mg/dL Normal [facility] Comment on above: Performed By: #### L IPID, T4, TSH, CMP #### [facility] [address] [place] [address] Dr. Rena Barone HbA1c (Bld) [Mass fraction] 7.2 % Critically high 4.5-6.2 [place] Comment on above: Performed By: #### L IPID, T4, TSH, CMP #### [facility] [address] [place] [address] Dr. Rena Barone RETICULOCYTEon 03-15-2022 RETIC 1.64 % Normal 0.60-3.10 [facility] Comment on above: Performed By: #### R ETIC #### [facility] [address] [place] [address] Dr. Rena Barone VITAMIN B12on 03-15-2022 Cobalamin (Vitamin B12) [Mass/Vol] 386.0 pg/mL Normal 193.0-986.0 [place] Comment on above: Performed By: #### L IPID, T4, TSH, CMP #### [facility] [address] [place] [address] Dr. Rena Barone CBC AUTO DIFFon 02-26-2022 BASO # 0.0 103/ul Normal 0.0-0.1 [place] Comment on above: Performed By: #### L IPID, T4, TSH, CMP #### [facility] [address] [place] [address] Dr. Rena Barone Basophils/100 WBC (Bld) 0.3 % Normal 0.2-2.0 [facility] Comment on above: Performed By: #### L IPID, T4, TSH, CMP #### [facility] [address] [place] [address] Dr. Rena Barone EO # 0.2 103/ul Normal 0.0-0.7 [facility] Comment on above: Performed By: #### L IPID, T4, TSH, CMP #### [facility] [address] [place] [address] Dr. Rena Barone Eosinophils/100 WBC (Bld) 2.0 % Normal 0.9-7.0 [facility] Comment on above: Performed By: #### L IPID, T4, TSH, CMP #### [facility] [address] [place] [address] Dr. Rena Barone Erythrocyte distribution width (RBC) [Ratio] 12.9 % Normal 11.0-15.0 [place] Comment on above: Performed By: #### L IPID, T4, TSH, CMP #### [facility] [address] [place] [address] Dr. Rena Barone Hematocrit (Bld) [Volume fraction] 38.1 % Critically low 42.0-54.0 [place] Comment on above: Performed By: #### L IPID, T4, TSH, CMP #### [facility] [address] [place] [address] Dr. Rena Barone Hemoglobin (Bld) [Mass/Vol] 12.5 g/dL Critically low 14.0-18.0 [facility] Comment on above: Performed By: #### L IPID, T4, TSH, CMP #### [facility] [address] [place] [address] Dr. Rena Barone IG # 0.03 10e3/ul Normal 0.00-0.03 [place] Comment on above: Performed By: #### L IPID, T4, TSH, CMP #### [facility] [address] [place] [address] Dr. Rena Barone IG % 0.3 % Normal 0.0-0.5 [facility] Comment on above: Performed By: #### L IPID, T4, TSH, CMP #### [facility] [address] [place] [address] Dr. Rena Barone LYMPH # 1.8 103/ul Normal 1.2-3.8 [facility] Comment on above: Performed By: #### L IPID, T4, TSH, CMP #### [facility] [address] [place] [address] Dr. Rena Barone Lymphocytes/100 WBC (Bld) 18.9 % Critically low 20.5-60.0 [facility] Comment on above: Performed By: #### L IPID, T4, TSH, CMP #### [facility] [address] [place] [address] Dr. Rena Barone MANUAL DIFF REQ NO Normal [facility] Comment on above: Performed By: #### L IPID, T4, TSH, CMP #### [facility] [address] [place] [address] Dr. Rena Barone MCH (RBC) [Entitic mass] 33.3 pg Normal 25.9-34.0 [facility] Comment on above: Performed By: #### L IPID, T4, TSH, CMP #### [facility] [address] [place] [address] Dr. Rena Barone MCHC (RBC) [Mass/Vol] 32.8 g/dL Normal 29.9-35.2 [facility] Comment on above: Performed By: #### L IPID, T4, TSH, CMP #### [facility] [address] [place] [address] Dr. Rena Barone MCV (RBC) [Entitic vol] 101.6 fL Critically high 80.0-94.0 [facility] Comment on above: Performed By: #### L IPID, T4, TSH, CMP #### [facility] [address] [place] [address] Dr. Rena Barone MONO # 0.8 103/ul Normal 0.3-0.8 [facility] Comment on above: Performed By: #### L IPID, T4, TSH, CMP #### [facility] [address] [place] [address] Dr. Rena Barone Monocytes/100 WBC (Bld) 9.0 % Normal 1.7-12.0 [place] Comment on above: Performed By: #### L IPID, T4, TSH, CMP #### [facility] [address] [place] [address] Dr. Rena Barone NEUT # 6.5 103/ul Normal 1.4-6.5 [place] Comment on above: Performed By: #### L IPID, T4, TSH, CMP #### [facility] [address] [place] [address] Dr. Rena Barone Neutrophils/100 WBC (Bld) 69.5 % Normal 43.0-75.0 [place] Comment on above: Performed By: #### L IPID, T4, TSH, CMP #### [facility] [address] [place] [address] Dr. Rena Barone Platelet mean volume (Bld) [Entitic vol] 12.0 fL Normal 9.5-13.5 [place] Comment on above: Performed By: #### L IPID, T4, TSH, CMP #### [facility] [address] [place] [address] Dr. Rena Barone PLT 166 103/ul Normal 150-450 [facility] Comment on above: Performed By: #### L IPID, T4, TSH, CMP #### [facility] [address] [place] [address] Dr. Rena Barone RBC 3.75 106/ul Critically low 4.70-6.10 [facility] Comment on above: Performed By: #### L IPID, T4, TSH, CMP #### [facility] [address] [place] [address] Dr. Rena Barone WBC 9.3 103/ul Normal 4.0-11.0 [place] Comment on above: Performed By: #### L IPID, T4, TSH, CMP #### [facility] [address] [place] [address] Dr. Rena Barone LIPID PROFILEon 02-26-2022 CHOL-HDL RATIO NORM SEE BELOW Normal [facility] Comment on above: Result Comment: 3.3 - 4.4 LOW RISK 4.4 - 7.1 AVERAGE RISK 7.1 - 11.0 MODERATE RISK >11.0 HIGH RISK Performed By: #### L IPID, T4, TSH, CMP #### [facility] [address] [address] [address] Rena Barone Cholesterol [Mass/Vol] 133 mg/dL Normal <=200 [place] Comment on above: Performed By: #### L IPID, T4, TSH, CMP #### [facility] [address] [address] [address] Rena Barone Cholesterol in HDL [Mass/Vol] 29 mg/dL Critically low 40-60 [place] Comment on above: Performed By: #### L IPID, T4, TSH, CMP #### [facility] [address] [address] [address] Rena Barone Cholesterol in LDL [Mass/Vol] 66.8 mg/dL Normal [place] Comment on above: Performed By: #### L IPID, T4, TSH, CMP #### [facility] [address] [address] [address] Rena Barone Cholesterol.total/C holesterol in HDL [Mass ratio] 4.6 {ratio} Normal [place] Comment on above: Performed By: #### L IPID, T4, TSH, CMP #### [facility] [address] [address] [address] Rena Barone HDL NORMAL > or = 60 mg/dl - LO W CARDIOVASCULAR RISK <40 mg/dl - HIGH CARDIOVASCULAR RISK Normal [place] Comment on above: Performed By: #### L IPID, T4, TSH, CMP #### [facility] [address] [place] [address] Dr. Rena Barone LDL CALC NORMAL SEE BELOW Normal [facility] Comment on above: Result Comment: <100 mg/dl OPTIMAL 100 - 129 mg/dl NEAR OR ABOVE OPTIMAL 130 - 159 mg/dl BORDERLINE HIGH 160 - 189 mg/dl HIGH >190 mg/dl VERY HIGH Performed By: #### L IPID, T4, TSH, CMP #### [facility] [address] [address] [address] Rena Barone Triglyceride [Mass/Vol] 186 mg/dL Critically high <=150 [place] Comment on above: Performed By: #### L IPID, T4, TSH, CMP #### [facility] [address] [address] [address] Rena Barone VLDL CALC 37.2 mg/dL Normal [place] Comment on above: Performed By: #### L IPID, T4, TSH, CMP #### [facility] [address] [address] [address] Rena Barone PROF 14(COMP METB)on 022 Albumin [Mass/Vol] 3.8 g/dL Normal 3.4-5.0 [facility] Comment on above: Performed By: #### L IPID, T4, TSH, CMP #### [facility] [address] [address] [address] Rena Barone Albumin/Globulin [Mass ratio] 1.0 {ratio} Normal [place] Comment on above: Performed By: #### L IPID, T4, TSH, CMP #### [facility] [address] [place] [address] Dr. Rena Barone ALP [Catalytic activity/Vol] 83 U/L Normal 46-116 [facility] Comment on above: Performed By: #### L IPID, T4, TSH, CMP #### [facility] [address] [address] [address] Rena Barone ALT [Catalytic activity/Vol] 28 U/L Normal 16-63 [place] Comment on above: Performed By: #### L IPID, T4, TSH, CMP #### [facility] [address] [place] [address] Dr. Rena Barone Anion gap [Moles/Vol] 15.9 mmol/L Normal [place] Comment on above: Performed By: #### L IPID, T4, TSH, CMP #### [facility] [address] [place] [address] Dr. Rena Barone AST [Catalytic activity/Vol] 16 U/L Normal 15-37 [place] Comment on above: Performed By: #### L IPID, T4, TSH, CMP #### [facility] [address] [address] [address] Rena Barone Bilirubin [Mass/Vol] 0.6 mg/dL Normal 0.2-1.0 [place] Comment on above: Performed By: #### L IPID, T4, TSH, CMP #### [facility] [address] [place] [address] Dr. Rena Barone Calcium [Mass/Vol] 8.9 mg/dL Normal 8.5-10.1 [facility] Comment on above: Performed By: #### L IPID, T4, TSH, CMP #### [facility] [address] [place] [address] Dr. Rena Barone Chloride [Moles/Vol] 101 mmol/L Normal 98-107 [place] Comment on above: Performed By: #### L IPID, T4, TSH, CMP #### [facility] [address] [place] [address] Dr. Rena Barone CO2 [Moles/Vol] 24.4 mmol/L Normal 21.0-32.0 [facility] Comment on above: Performed By: #### L IPID, T4, TSH, CMP #### [facility] [address] [place] [address] Dr. Rena Barone Creatinine [Mass/Vol] 1.09 mg/dL Normal 0.70-1.30 [place] Comment on above: Performed By: #### L IPID, T4, TSH, CMP #### [facility] [address] [place] [address] Dr. Rena aBrone EGFR-AF GIBRALTARIAN >60 Normal >=60 [facility] Comment on above: Performed By: #### L IPID, T4, TSH, CMP #### [facility] [address] [place] [address] Dr. Rena Barone EGFR-NON AF GIBRALTARIAN >60 Normal >=60 [place] Comment on above: Performed By: #### L IPID, T4, TSH, CMP #### [facility] [address] [address] [address] Rena Barone Globulin (S) [Mass/Vol] 3.8 g/dL Normal [place] Comment on above: Performed By: #### L IPID, T4, TSH, CMP #### [facility] [address] [place] [address] Dr. Rena Barone Glucose [Mass/Vol] 130 mg/dL Critically high 74-106 [facility] Comment on above: Performed By: #### L IPID, T4, TSH, CMP #### [facility] [address] [place] [address] Dr. Rena Barone Potassium [Moles/Vol] 4.3 mmol/L Normal 3.5-5.1 [place] Comment on above: Performed By: #### L IPID, T4, TSH, CMP #### [facility] [address] [place] [address] Dr. Rena Barone Protein [Mass/Vol] 7.6 g/dL Normal 6.4-8.2 [facility] Comment on above: Performed By: #### L IPID, T4, TSH, CMP #### [facility] [address] [place] [address] Dr. Rena Barone Sodium [Moles/Vol] 137 mmol/L Normal 136-145 [facility] Comment on above: Performed By: #### L IPID, T4, TSH, CMP #### [facility] [address] [place] [address] Dr. Rena Barone Urea nitrogen [Mass/Vol] 26.0 mg/dL Critically high 7.0-18.0 [place] Comment on above: Performed By: #### L IPID, T4, TSH, CMP #### [facility] [address] [place] [address] Dr. Rena Barone Urea nitrogen/Creatinine [Mass ratio] 23.9 mg/mg Normal [place] Comment on above: Performed By: #### L IPID, T4, TSH, CMP #### [facility] [address] [address] [address] Rena Barone T4on 02-26-2022 T4 [Mass/Vol] 4.20 ug/dL Critically low 4.50-12.10 [facility] Comment on above: Performed By: #### L IPID, T4, TSH, CMP #### [facility] [address] [place], [place] [address] Dr. Rena Barone TSHon 02-26-2022 TSH 3.428 uIU/mL Normal 0.358-3.740 [facility] Comment on above: Performed By: #### L IPID, T4, TSH, CMP #### [facility] [address] [address] [address] Rena Barone TSH RANGE SEE BELOW Normal [place] Comment on above: Result Comment: <0.3 4 UIU/ml HYPERTHYROID 0.34-5.60 UIU/ml EUTHYROID >5.60 UIU/ml HYPOTHYROID Performed By: #### L IPID, T4, TSH, CMP #### [facility] [address] [address] [address] Rena Barone Vital Signs Date Time Vital Sign Value Performing Clinician Facility 03-12-2024 09:46-0400 Body height 177.8 cm [facility] 03-12-2024 09:46-0400 Body mass index (BMI) [Ratio] 45.3 kg/m2 [facility] 03-12-2024 09:46-0400 Body weight 143.5 kg [facility] 03-12-2024 09:46-0400 Diastolic blood pressure 69 mm[Hg] [facility] 03-12-2024 09:46-0400 Heart rate 80 /min [facility] 03-12-2024 09:46-0400 Respiratory rate 16 /min [facility] 03-12-2024 09:46-0400 Systolic blood pressure 107 mm[Hg] [facility] 11-07-2023 09:00-0500 Body height 177.8 cm Delonte Ball Other [facility] Other 11-07-2023 09:00-0500 Body mass index (BMI) [Ratio] 45.11 kg/m2 Delonte Ball Other [facility] Other 11-07-2023 09:00-0500 Body weight 142.61 kg Delonte Ball Other [facility] Other 11-07-2023 09:00-0500 Diastolic blood pressure 86 mm[Hg] Delonte Ball Other [facility] Other 11-07-2023 09:00-0500 Respiratory rate 16 /min Delonte Ball Other [facility] Other 11-07-2023 09:00-0500 Systolic blood pressure 131 mm[Hg] Delonte Ball Other [facility] Other 07-25-2023 09:00-0400 Body height 177.8 cm Delonte Ball Other [facility] Other 07-25-2023 09:00-0400 Body mass index (BMI) [Ratio] 46.54 kg/m2 Delonte Ball Other [facility] Other 07-25-2023 09:00-0400 Body weight 147.15 kg Delonte Ball Other [facility] Other 07-25-2023 09:00-0400 Diastolic blood pressure 83 mm[Hg] Delonte Ball Other [facility] Other 07-25-2023 09:00-0400 Respiratory rate 16 /min Delonte Ball Other [facility] Other 07-25-2023 09:00-0400 Systolic blood pressure 130 mm[Hg] Delonte Ball Other [facility] Other 06-05-2023 11:25-0400 Body height 177.8 cm Bonny Raymundo Other [facility] Other 06-05-2023 11:25-0400 Body mass index (BMI) [Ratio] 46.48 kg/m2 Bonny Raymundo Other [facility] Other 06-05-2023 11:25-0400 Body temperature 98.2 [degF] Bonny Raymundo Other [facility] Other 06-05-2023 11:25-0400 Body weight 146.97 kg Bonny Raymunod Other [facility] Other 06-05-2023 11:25-0400 Diastolic blood pressure 61 mm[Hg] Bonny Raymundo Other [facility] Other 06-05-2023 11:25-0400 Respiratory rate 18 /min Bonny Raymundo Other [facility] Other 06-05-2023 11:25-0400 SaO2% (BldA) [Mass fraction] 97 % Bonny Raymundo Other [facility] Other 06-05-2023 11:25-0400 Systolic blood pressure 109 mm[Hg] Bonny Raymundo Other [facility] Other 02-14-2023 11:00-0400 Body height 177.8 cm Bonny Raymundo Other [facility] Other 02-14-2023 11:00-0400 Body mass index (BMI) [Ratio] 47.06 kg/m2 Bonny Raymundo Other [facility] Other 02-14-2023 11:00-0400 Body temperature 98 [degF] Bonny Raymundo Other [facility] Other 02-14-2023 11:00-0400 Body weight 148.78 kg Bonny Zackary Other [facility] Other 02-14-2023 11:00-0400 Diastolic blood pressure 73 mm[Hg] Bonny Zackary Other [facility] Other 02-14-2023 11:00-0400 Respiratory rate 18 /min Bonny Raymundo Other [facility] Other 02-14-2023 11:00-0400 SaO2% (BldA) [Mass fraction] 96 % Bonny Raymundo Other [facility] Other 02-14-2023 11:00-0400 Systolic blood pressure 130 mm[Hg] Bonny Zackary Other [facility] Other 01-09-2023 12:30-0400 Body height 177.8 cm Delonte Ball Other [facility] Other 01-09-2023 12:30-0400 Body mass index (BMI) [Ratio] 48.18 kg/m2 Delonte Ball Other [facility] Other 01-09-2023 12:30-0400 Body weight 152.32 kg Delonte Ball Other [facility] Other 01-09-2023 12:30-0400 Diastolic blood pressure 78 mm[Hg] Delonte Ball Other [facility] Other 01-09-2023 12:30-0400 Respiratory rate 16 /min Delonte Ball Other [facility] Other 01-09-2023 12:30-0400 Systolic blood pressure 124 mm[Hg] Delonte Ball Other [facility] Other 11-01-2022 11:00-0500 Body height 177.8 cm Delonte Ball Other [facility] Other 11-01-2022 11:00-0500 Body mass index (BMI) [Ratio] 48.58 kg/m2 Delonte Ball Other [facility] Other 11-01-2022 11:00-0500 Body weight 153.59 kg Delonte Ball Other [facility] Other 11-01-2022 11:00-0500 Diastolic blood pressure 76 mm[Hg] Delonte Ball Other [facility] Other 11-01-2022 11:00-0500 Respiratory rate 16 /min Delonte Ball Other [facility] Other 11-01-2022 11:00-0500 Systolic blood pressure 122 mm[Hg] Delonte Ball Other [facility] Other 10-07-2022 10:20-0500 Diastolic blood pressure 68 mm[Hg] DO Delonte Ball Work Phone: [facility] 10-07-2022 10:20-0500 Heart rate 93 /min DO Delonte Ball Work Phone: [facility] 10-07-2022 10:20-0500 Respiratory rate 16 /min DO Delonte Ball Work Phone: [facility] 10-07-2022 10:20-0500 SaO2% (BldA) [Mass fraction] 98 % DO Delonte Ball Work Phone: [facility] 10-07-2022 10:20-0500 Systolic blood pressure 114 mm[Hg] DO Delonte Ball Work Phone: [facility] 10-07-2022 08:37-0500 Body height 176.53 cm DO Delonte Ball Work Phone: [facility] 10-07-2022 08:37-0500 Body temperature 98.7 [degF] DO Delonte Ball Work Phone: [facility] 10-07-2022 08:37-0500 Body weight 147.41 kg DO Delonte Ball Work Phone: [facility] 05-19-2022 12:40-0400 Body height 177.8 cm Bonny Raymundo Other [facility] Other 05-19-2022 12:40-0400 Body mass index (BMI) [Ratio] 45.91 kg/m2 Bonny Raymundo Other [facility] Other 05-19-2022 12:40-0400 Body temperature 100.6 [degF] Bonny Raymundo Other [facility] Other 05-19-2022 12:40-0400 Body weight 145.15 kg Bonny Raymundo Other [facility] Other 05-19-2022 12:40-0400 SaO2% (BldA) [Mass fraction] 98 % Bonny Raymundo Other [facility] Other 08-12-2021 12:30-0400 Body temperature 98.2 [degF] Bonny Ginty Other [facility] Other 08-12-2021 12:30-0400 SaO2% (BldA) [Mass fraction] 92 % Bonny Ginty Other [facility] Other Encounters Encounter Date Encounter Type Care Provider Facility Start: 04-21-2024 End: 04-21-2024 ambulatory LACHO LACY [facility] Start: 03-24-2024 ambulatory [facility] Start: 03-24-2024 End: 03-24-2024 ambulatory [facility] Start: 03-12-2024 End: 03-12-2024 ambulatory [facility] Work Phone: Start: 03-12-2024 End: 03-12-2024 Patient encounter procedure [facility] Work Phone: Start: 01-20-2024 End: 01-20-2024 ambulatory [facility] Start: 12-18-2023 Non-patient / Non-visit [facility] Work Phone: Start: 12-17-2023 End: 12-17-2023 ambulatory KOL[facility] Start: 11-07-2023 End: 11-07-2023 ambulatory Delonte Tejeda Other [facility] Other Start: 11-07-2023 Encounter for genera l adult medical examination without abnormal findings Delonte Tejeda [facility] Start: 11-07-2023 Periodic preventive med est patient 40-64yrs Delonte Tejeda [facility] Start: 10-18-2023 End: 10-18-2023 ambulatory Bonny Raymundo Other [facility] Other Start: 10-18-2023 Telephone encounter Bonny Raymundo [facility] Start: 10-17-2023 Telephone encounter Delonte Tejeda [facility] Start: 10-17-2023 End: 10-17-2023 ambulatory DO Delonte Tejeda Work Phone: [facility] Other Start: 10-17-2023 End: 10-17-2023 Patient encounter procedure DO Delonte Tejeda Work Phone: [facility] Work Phone: Start: 10-09-2023 End: 10-09-2023 ambulatory Delonte Tejeda Other [facility] Other Start: 10-09-2023 Telephone encounter Delonte Tejeda [facility] Start: 07-25-2023 End: 07-25-2023 ambulatory Delonte Tejeda Other [facility] Other Start: 07-25-2023 Office outpatient vi sit 25 minutes Delonte Tejeda [facility] Start: 07-21-2023 End: 07-21-2023 ambulatory Bonny Raymundo Other [facility] Other Start: 07-21-2023 Telephone encounter Bonny Raymundo [facility] Start: 07-11-2023 End: 07-11-2023 ambulatory Delonte Tejeda Other [facility] Other Start: 07-11-2023 Telephone encounter Delonte Tejeda [facility] Start: 06-06-2023 End: 06-06-2023 ambulatory Delonte Tejeda Other [facility] Other Start: 06-06-2023 Telephone encounter [facility] Start: 06-05-2023 Office outpatient vi sit 15 minutes Bonny Raymundo [facility] Start: 06-05-2023 Telephone encounter Delonte Tejeda [facility] Start: 06-05-2023 End: 06-05-2023 ambulatory DO Delonte Tejeda Work Phone: [facility] Other Start: 06-05-2023 End: 06-05-2023 Patient encounter procedure DO Delonte Tejeda Work Phone: [facility] Work Phone: Start: 04-18-2023 End: 04-18-2023 ambulatory Delonte Tejeda Other [facility] Other Start: 04-18-2023 Telephone encounter Delonte Tejeda [facility] Start: 04-14-2023 End: 04-14-2023 ambulatory Delonte Tejeda Other [facility] Other Start: 04-14-2023 Telephone encounter Delonte Nikhil [facility] Start: 02-21-2023 End: 02-22-[address] DELONTE TEJEDA Facility: Start: 02-18-2023 End: 02-18-2023 ambulatory Delonte Nikhil Other [facility] Other Start: 02-18-2023 Telephone encounter Delonte Nikhil [facility] Start: 02-14-2023 End: 02-14-2023 ambulatory Bonny Raymundo Other [facility] Other Start: 02-14-2023 Office outpatient vi sit 25 minutes Bonny Raymundo [facility] Start: 01-29-2023 End: 01-29-2023 ambulatory Deolnte Tejeda Other [facility] Other Start: 01-29-2023 Telephone encounter Delonte Tejeda [facility] Start: 01-20-2023 End: 01-20-2023 ambulatory Delonte Tejeda Other [facility] Other Start: 01-20-2023 Telephone encounter Delonte Tejeda [facility] Start: 01-09-2023 End: 01-09-2023 ambulatory Delonte Tejeda Other [facility] Other Start: 01-09-2023 Office outpatient vi sit 25 minutes Delonte Tejeda [facility] Start: 12-24-2022 End: 12-24-2022 ambulatory Delonte Tejeda Other [facility] Other Start: 12-24-2022 Telephone encounter Delonte Tejeda [facility] Start: 12-06-2022 End: 12-07-2022 ambulatory NONE LISTED REQUEST Facility:[facility]1 Start: 11-29-2022 End: 11-30-2022 ambulatory NONE LISTED REQUEST Facility:[facility] Start: 11-25-2022 End: 11-25-2022 ambulatory Delonte Nikhil Other [facility] Other Start: 11-25-2022 Telephone encounter Delonte Tejeda [facility] Start: 11-01-2022 End: 11-01-2022 ambulatory Delonte Nikhil Other [facility] Other Start: 11-01-2022 Encounter for genera l adult medical examination without abnormal findings Delonte Nikhil [facility] Start: 11-01-2022 Patient encounter procedure Delonte Nikhil [facility] Start: 11-01-2022 Periodic preventive med est patient 40-64yrs Delonte Nikhil [facility] Start: 10-18-2022 End: 10-18-2022 ambulatory Bonny Raymundo Other [facility] Other Start: 10-18-2022 Telephone encounter Bonny Raymundo [facility] Start: 10-07-2022 End: 10-07-2022 Admission to same day surgery center DO Delonte Tejeda Work Phone: [facility] Start: 10-07-2022 End: 10-07-2022 ambulatory DO Delonte Tejeda Work Phone: [facility] Work Phone: Start: 07-30-2022 End: 07-31-2022 ambulatory NONE LISTED REQUEST Facility:[facility] Start: 07-12-2022 ambulatory Malik MOLINA Facility : [facility] Start: 06-04-2022 End: 06-05-[address] DELONTE TEJEDA Facility: Start: 05-19-2022 End: 05-19-2022 ambulatory Bonny Raymundo Other [facility] Other Start: 05-19-2022 Office outpatient vi sit 25 minutes Bonny Raymundo [facility] Start: 05-01-2022 End: 05-02-[address] DELONTE TEJEDA Facility:[facility] Start: 03-15-2022 End: 03-16-[address] DELONTE TEJEDA Facility:[facility] Start: 03-14-2022 End: 03-15-[address] RICARDO LISTED REQUEST Facility:[facility] Start: 02-26-2022 End: 02-27-[address] DELONTE TEJEDA Facility:[facility] Start: 09-07-2021 Adult health examination Bonny Raymundo Other [facility] Other Start: 08-12-2021 End: 08-12-2021 ambulatory Bonny Sr Other [facility] Other Start: 08-12-2021 Office outpatient vi sit 15 minutes Bonny Sr [facility] Procedures Date Procedure Procedure Detail Performing Clinician Start: 06-05-2023 Plain X-ray of left hip DO Delonte Tejeda Work Phone: Start: 02-21-[address] RAYA TEJEDA Comment on above: Performed By: #### P SASC #### [facility] [address] [place] [address] Dr. Rena Barone Start: 10-07-2022 Colonoscopy DO Anjali Tejeda Work Phone: Start: 02-26-[address] RAYA TEJEDA Comment on above: Performed By: #### L IPID, T4, TSH, CMP #### [facility] [address] [address] [address] Rena Barone Start: 05-20-2016 General examination of patient Bonny Raymundo Other Start: 01-04-2016 Screening for malign ant neoplasm of colon Bonny Raymundo Other Plan of Treatment Date Care Activity Detail Author Start: 10-07-2022 [facility] Patient Education Colon Polyps [facility] Work Phone: Immunizations Immunization Date Immunization Notes Care Provider Waqas zayas 08-19-2022 COVID-19 Pfizer (bivalent) Bonny Raymundo Other [facility] 08-19-2022 COVID-19 Pfizer (Pediatric) Bonny Raymundo Other [facility] 08-19-2022 influenza virus vaccine, split virus (incl. purified surface antigen) Bonny Raymundo Other [facility] Other 08-19-2022 influenza virus vaccine, unspecified formulation [facility] 08-19-2022 influenza, injectabl e, quadrivalent, preservative free Bonny Raymundo Other [facility] 02-09-2022 COVID-19 Pfizer Bonny Raymundo Other [facility] 02-09-2022 COVID-19 Vaccine Pfi zer - Documentation Purposes Only Bonny Raymundo Other [facility] 08-06-2021 COVID-19 Vaccine Pfi zer - Documentation Purposes Only Bonny Raymundo Other [facility] 08-06-2021 influenza virus vaccine, split virus (incl. purified surface antigen) Bonny Raymundo Other [facility] [facility] Other 08-06-2021 influenza virus vaccine, unspecified formulation [facility] 01-20-2021 COVID-19 mRNA, Comirnaty (Pfizer) DO [place] Work Phone: [facility] 12-30-2020 COVID-19 mRNA, Comirnaty (Pfizer) DO [place] Work Phone: [facility] 07-26-2020 influenza virus vaccine, split virus (incl. purified surface antigen) Bonny Raymundo Other [facility] Other 07-26-2020 influenza virus vaccine, unspecified formulation [facility] 09-06-2017 tetanus and diphther ia toxoids, adsorbed, preservative free, for adult use (5 Lf of tetanus toxoid and 2 Lf of diphtheria toxoid) Bonny Raymundo Other [facility] Payers Date Payer Category Payer Unknown [id number] 2.16.8 [id number] 1960 Unknown [id number] 2.16.84 [id number] 1960 Unknown [id number] 2.16.84 [id number] 1960 Unknown [id number] 2.16.84 [id number] 1960 Self-pay [id number] 1960 Self-pay [id number] 1960 Unknown [id number] 2. [id number] Unknown [id number] 2.16.84 [id number] Unknown [id number] 2.16.84 [id number] Unknown [id number] 2.16.84 [id number] Unknown [id number] 2.16.84 [id number] Unknown [id number] 2.16.84 [id number] Unknown [id number] 2.16.84 [id number] Unknown [id number] 2.16.8 [id number] Unknown [id number] 2.16.8 [id number] Social History Date Type Detail Facility Sex Assigned At [facility] Other Start: 10-07-2022 End: 10-07-2022 Tobacco smoking status NHIS Current some day smoker [facility] Start: 1960 Sex Assigned At Male F [facility] Start: 12-18-2023 Tobacco smoking stat us NHIS Ex-smoker (finding) [facility] Goals Date Patient Goal Desired Activity /State Clinical Notes 08-12-2021 to 04-21-2024 Note Date & Type Note Facility 04-21-2024 Note [id number]= 2 poin ts- HTN and DM Continue xarelto anticoagulation - denied any bleeding tendencies Rate controlled with Coreg [facility] 04-21-2024 Note Currently pt is cassy song well post Cardioversion Currently in A fib and rate controlled - Dr Fatima notified and d/w pt about possible A fib ablation [facility] 04-21-2024 Note Patient here for fol low up cardioversion performed on 03/24/[address] Fatima. Still has intermittent palpitations but says they are less frequent since cardioversion. He continues to deny chest pain, SOB, lightheadedness/syncope, and bleeding on Xarelto. Review of Systems Cardiovascular: Positive for palpitations (less frequent). Musculoskeletal: Positive for arthritis, back pain and joint pain. All other systems reviewed and are negative. [facility] 04-21-2024 Note UTP CARDIOLOGY PROGR ESS NOTE HPI: Salomón Rush is a 63 y.o. male here for F/U cardioversion HPI 63 yo male presents today for f/U after recent Cardioversion Patient here for follow up cardioversion performed on 03/24/[address] Fatima. Still has intermittent palpitations but says they are less frequent since cardioversion. He continues to deny chest pain, SOB, lightheadedness/syncope, and bleeding on Xarelto. Overall pt states that he feels very well. He is currently on vacation from work and will be retiring this Summer Review of Systems Cardiovascular: Positive for palpitations (less frequent). Musculoskeletal: Positive for arthritis, back pain and joint pain. All other systems reviewed and are negative. Reason for visit: persistent AF HPI per Dr Fatima HPI: Salomón Rush is a 63 y.o. [...] any shortness of breath, chest pain, fatigue. [id number] at least 2 for hypertension, DM 2, [...] PVCs. ECG 09/2023 shows A-fib, rate controlled Visit Vitals BP 144/86 (BP Location: Right wrist, Patient Position: Sitting) Pulse 73 Ht 1.778 m (5' 10 ) Wt (!) 143 kg (315 lb) SpO2 96% BMI 45.20 kg/m??? Smoking Status Former BSA 2.66 m??? No Known Allergies Medications: Current Outpatient Medications on File Prior to Visit Medication Sig Dispense Refill allopurinol (Zyloprim) 300 mg tablet Take 300 mg by mouth in the morning. amiodarone (Pacerone) 200 mg tablet TAKE ONE TABLET DAILY 90 tablet 3 amLODIPine (Norvasc) 5 mg tablet Take 1 [...] 0.5 mg(2 mg/1.5 mL) pen injector Inject 0.25 mg under the skin 1 (one) time per week. On Mondays No current facility-administered medications on file prior to visit. Physical Exam: Constitutional: Appearance: Normal appearance. Without apparent distress, obese HENT: Head: Normocephalic and atraumatic. Nose: Nose normal. Mouth/Throat: Mouth: Mucous membranes are moist. Eyes: Extraocular Movements: Extraocular movements intact. Conjunctiva/sclera: Conjunctivae normal. Neck: Vascular: No JVD. Cardiovascular: Rate and Rhythm: Normal rate and Irregular rhythm. Pulses: Dorsalis pedis pulses are 3 on the right side and 3on the left side. Posterior tibial pulses are 3 on the right side and 3 on the left side. Heart sounds: Normal heart sounds, S1 normal and S2 normal. Pulmonary: Effort: Pulmonary effort is normal. Breath sounds: Normal breath sounds. Skin: General: Skin is warm and dry. Capillary Refill: Capillary refill takes less than 2 seconds. Neurological: General: No focal deficit present. Mental Status: She is alert and oriented to person, place, and time. Psychiatric: Mood and Affect: Mood normal. Behavior: Behavior normal. Thought Content: Thought content normal. Judgment: Judgment normal. Labs: Labs 11/21/2023, RBCs 3.8, hemoglobin 12.8, triglycerides 100, cholesterol 113, HDL 34, LDL 59, sodium 134, K4.8, chloride 99, BUN 17, Cr 1.15, GFR >60, TSH 2.27 EKG: EKG today 04/21/24- A fib- rate controlled Encounter Date: 03/24/24 ECG 12 lead Result Value Ventricular Rate 73 QRS DURATION 100 QT Interval 406 QTC CALCULATION(BAZETT) 447 R-Rochester 49 T Wave [place] 38 Impression Atrial fibrillation Abnormal ECG No previous ECGs available Echo: 09/2023 tte Assessment/Plan: History (more content not included)... [facility] 03-24-2024 Note DIRECT CARDIOVERSION PROCEDURE NOTE Date: 03/24/2024. Type of procedure: DC Cardioversion. Performed by: Felipe Fatima MD Informed consent: Signed by patient. Indication: 63year old with past medical history of A-fib [...] any shortness of breath, chest pain, fatigue. [id number] at least 2 for hypertension, DM 2, takes Xarelto 20 mg daily. He was seen by Kolby PRATT and at that time 14-day event monitor was ordered which she did from 12/17/2023 to 01/02/2024. He was loaded with Amio and was brought for DCCV. Preparation and technique: Patient was brought into the procedure room. After an informed consent was obtained following a discussion with the patient where I explained the risk and benefit of the procedure that is not limited to skin benson, fluid in the lungs, heart attack, stroke, or even , though that is very rare. Patches were placed in anteroposterior direction and once patient was made comfortable with Versed 2mg and Fentanyl 25mcg. Following sedation, the patient underwent synchronized cardioversion using 360J which converted to sinus rhythm. Post procedure, the patient was stable. No complications noted. Plan: Continue anticoagulation and consider ablation. Felipe Faitma MD Cardiac Electrophysiology [facility] 03-24-2024 Note Patient: Salomón Troy Poc ock Procedure Information Date/Time: 03/24/24 0830 Procedure: Cardioversion - TO BE DONE IN March Location: [facility] / [facility] (Cath) Providers: Felipe Fatima MD Clinical information reviewed: Tobacco Allergies Meds Med Hx Surg Hx Fam Hx Soc Hx Physical Exam Airway Mallampati: II TM distance: >3 FB Neck ROM: full Cardiovascular Dental Pulmonary Abdominal Anesthesia Plan ASA 2 CSE Anesthetic plan and risks discussed with patient. Use of blood products discussed with patient who. Additional Equipment Requests [facility] 01-20-2024 Note [facility] Consult Note Reason [...] any shortness of breath, chest pain, fatigue. [id number] at least 2 for hypertension, DM 2, [...] on file Intimate Partner Violence: Unknown (12/11/2023) [place] Safety [place] Fear of Current or [...] tender Musculoskeletal In (more content not included)... [facility] 12-17-2023 Note [facility] Consult Note Reason [...] stopped on flecainide given having breakthrough episodes. [id number] at least 2 for hypertension, DM 2, [...] on file Intimate Partner Violence: Unknown (12/11/2023) [place] Safety [place] Fear of Current or [...] Lids and Conju (more content not included)... [facility] 12-17-2023 Note New patient here to establish care. Ref from Dr. Tejeda for hx of afib. He used to see [facility] in [place], and hasn't seen them in a few [...] All other systems reviewed and are negative. [facility] 11-07-2023 Evaluation note Encounter Date Diagnosis Assessment [...] are maintaining regular scheduled appts with their obstetrician gynecologist. No bleeding complications Oct, Primary hypertension (ICD-10 - I10) This patient is instructed to consume a healthy, low-fat, low-salt diet. They are also encouraged to continue exercise to achieve/maintain a normal BMI. Oct, Obstructive sleep apnea (ICD-10 - G47.33) This patient is aware of the benefits associated with ELENITA: With continued use, the patient reduces the risk for GA, CVA, HTN, cardiac dysrhythmias and sudden cardiac [...] risk for cerebrovascular and cardiovascular disease. 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 RVSP normal. 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) [facility] Other 10-02-2023 Evaluation note* Encounter Date Diagnosis Assessment Notes Treatment Notes Treatment Clinical Notes Jul, Type 2 diabetes mellitus with hyperglycemia (ICD-10 - E11.65) [facility] Other 09-22-2023 Evaluation note* Encounter Date Diagnosis Assessment Notes Treatment Notes Treatment Clinical Notes Jun, Type 2 diabetes mellitus with hyperglycemia (ICD-10 - E11.65) [facility] Other 08-17-2023 Evaluation note* Encounter Date Diagnosis [...] understanding and is agreeable with treatment plan [facility] Other 08-17-2023 Evaluation note* Encounter Date Diagnosis Assessment Notes Treatment Notes Treatment Clinical Notes May, Left hip pain (ICD-10 - M25.552) [facility] Other 05-02-2023 Evaluation note* Encounter Date Diagnosis Assessment Notes Treatment Notes Treatment Clinical Notes February, Type 2 diabetes mellitus with hyperglycemia, unspecified whether moth exterminator insulin use (ICD-10 - E11.65) [facility] Other 04-28-2023 Evaluation note* Encounter Date Diagnosis [...] treatment plan. Patient left in stable condition. [facility] Other 04-12-2023 Evaluation note* Encounter Date Diagnosis Assessment Notes Treatment Notes Treatment Clinical Notes Jan, Type 2 diabetes mellitus with hyperglycemia, unspecified whether moth exterminator insulin use (ICD-10 - E11.65) [facility] Other 04-03-2023 Evaluation note* Encounter Date Diagnosis Assessment Notes Treatment Notes Treatment Clinical Notes Jan, Type 2 diabetes mellitus with hyperglycemia (ICD-10 - E11.65) [facility] Other 03-23-2023 Evaluation note* Encounter Date Diagnosis [...] use, the patient reduces the risk for GA, CVA, HTN, cardiac dysrhythmias and sudden cardiac [...] are reviewed at the office visit. 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) [...] Monitor for rash of HZV Stretching exercises [facility] Other 03-07-2023 Evaluation note* Encounter Date Diagnosis Assessment Notes Treatment Notes Treatment Clinical Notes Dec, Type 2 diabetes mellitus with hyperglycemia, without long-term current use of insulin (ICD-10 - E11.65) [facility] Other 02-06-2023 Evaluation note* Encounter Date Diagnosis Assessment Notes Treatment Notes Treatment Clinical Notes Nov, Type 2 diabetes mellitus with hyperglycemia, without long-term current use of insulin (ICD-10 - E11.65) [facility] Other 01-13-2023 Evaluation note* Encounter Date Diagnosis [...] use, the patient reduces the risk for GA, CVA, HTN, cardiac dysrhythmias and sudden cardiac [...] 2 diabetes mellitus with hyperglycemia, unspecified whether moth exterminator insulin use (ICD-10 - E11.65) This patient [...] are reviewed at the office visit. A1C: 13 Fahad, 2023 Tubulovillous adenoma of colon (ICD-10 - D12.6) Oct, Morbid exogenous obesity (ICD-10 - E66.01) This patient is aware of the benefits associated with ELENITA: With continued use, the patient reduces the risk for GA, CVA, HTN, cardiac dysrhythmias and sudden cardiac [...] Oct, Annual physical exam (ICD-10 - Z00.00) [facility] Encounter Date Diagnosis Assessment Notes [...] treatment plan. Patient left in stable condition [facility] Other 10-24-2021 Evaluation note* Encounter Date Diagnosis [...] Patient care instructions given in writting by [facility] Care At Home document [facility] Other Evaluation noteNo assessment information available [facility] Work Phone: Evaluation noteNo InformationNortKindred Hospital [facility] Other Evaluation note* Diagnosis Onset Date Resolution Status Atrial fibrillation acute Chronic venous insufficiency of lower extremity acute Hypercholesterolemia acute Hypertension acute ELENITA (obstructive sleep apnea) acute Type 2 diabetes mellitus with hyperglycemia acute [facility] Work Phone: History and physical note Author Deon Greene [facility] October 07, 2022 9:27am Note Date/Time October 07, 2022 9:27am [facility] [address] [place], [place] [id number] Gastroenterology H&P Signed Patient: Salomón Rush MR#: [id number] : 1960 Acct:[id number] Age/Sex: 61 / M Adm Date: 2 Loc: Room: Type: [facility] Attending Dr: Deon Greene MD [...] <Electronically signed by Deon Greene MD> 10/07/[address] [facility] Work Phone: History general Narrative - Reported* Type Description Date Medical History hypertension Medical History Diabetes Medical History a. 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 for [...] Follow up with PCP. - Office number [phone].[facility] Work Phone: Reason for referral (narrative)* Reason *FU 11/28 Referral for persistent atrial fibrillation. Diagnosis 1 Chronic atrial fibri llation (I48.20) Referral Organization [facility] Chela joyner Referring Provider First Name Delonte Referring Provider Last Name Nikhil Referring Provider Specialty Internal Me kalani Referred Organization [facility] Referred Provider Felipe Fatima Referred Address [address], [place],[address] Referred Provider Specialty Cardiology Referral Priority Routine [...] faxed Clinical Notes Include recent Echo f: [phone] [facility] Other Summary Purpose Family History No Family History Records Found Relationship Condition Age at Onset Recorded Date/T [...] Heart disease Unknown sister Unknown Advance Directives No Advanced Directives Records Found Advance Directive Response Recorded Date/ Time Advance [...] BLACK JEEP, HIARRHEA, NA USEA, NASAL CONGESTION [id number] JEEP, COUGH, SORE THROAT, POSITIVE HOME TESTNo InformationWELLNESSNo InformationDifferent MedicationOzempic increasePossible Pulled MusclerefillNo InformationOzempicchest/head coldmed refillHRHRLeft hip painWants on TodayNo InformationOzempicNo Information3 month Follow upPrescription ReminderEKG resultsNo InformationWELLNESSWELLNESS (unrecognized sect ion and content) No Status Records FoundNo Status Records FoundNo Status Records FoundNo Status Records Found INFORMATION SOURCE (unrecogn ized section and content) DATE CREATED AUTHOR 07/22/2022 [facility] And[facility] DATE CREATED AUTHOR AUTHOR'S ORGANIZ ATION 02/21/2023 [facility] DATE CREATED AUTHOR AUTHOR'S ORGANIZ ATION 10/30/2023 [facility] DATE CREATED AUTHOR AUTHOR'S ORGANIZ ATION 04/22/2024 [facility] Teams (unrecognized sec tion and content) Team Status: Active Member Role Status David Tejeda DO Primary Care Provider Active Team Status: Active Member Role Status David Tejeda DO Primary Care Provide r, Attending Provider Active Start: December 18, 2023 Team Status: Inactive Member Role Status Dates Delonte Tejeda DO Primary Care Provide r, Attending Provider Active Start: March 12, 2024 End: March 12, 2024 Team Status: Inactive Member Role Status Dates Delonte Tejeda DO Primary Care Provider Active Deon Greene MD Attending Provider Active Team Status: Inactive Member Role Status Dates Delonte Tejeda DO Primary Care Provider Active Bonny Raymundo APRN Attending Provider Active Team Status: Inactive Member Role Status David Tejeda DO Primary Care Provider, Attending Pr ovider Active Goals (unrecognized section and content) Goals may [...] BE BASED ON THE PRIMARY CLINICAL RECORDS. [employer] [facility]. provides no warranty or guarantee of the accuracy or completeness of information in this document.
[2024-07-16 12:32] LABS: Basophils Percent Auto 0.4 % (0.2-2.0); Eosinophils Absolute Auto 0.2 10^3/uL (0.0-0.7); Eosinophils Percent Auto 2.6 % (0.9-7.0); Hematocrit 38.3 % (42.0-54.0); Immature Granulocytes Abs Auto 0.02 10^3/uL (0.00-0.03); Immature Granulocytes Pct Auto 0.3 % (0.0-0.5); Lymphocytes Absolute Auto 1.4 10^3/uL (1.2-3.8); Lymphocytes Percent Auto 19.7 % (20.5-60.0); Mean Corpuscular HGB Conc 33.9 g/dL (29.9-35.2); Mean Corpuscular Hemoglobin 34.8 pg (25.9-34.0); Mean Corpuscular Volume 102.4 fL (80.0-94.0); Mean Platelet Volume 11.1 fL (9.5-13.5); Monocytes Absolute Auto 0.7 10^3/uL (0.3-0.8); Monocytes Percent Auto 9.5 % (1.7-12.0); Neutrophils Absolute Auto 4.6 10^3/uL (1.4-6.5); Neutrophils Percent Auto 67.5 % (43.0-75.0); Platelet Count 154 10^3/uL (150-450); Red Blood Count 3.74 10^6/uL (4.70-6.10); White Blood Count 6.9 10^3/uL (4.0-11.0)
[2024-07-16 12:45] LABS: Anion Gap 12.1; BUN Creatinine Ratio 14.9; Calcium 9.4 mg/dL (8.5-10.1); Carbon Dioxide 28.4 mmol/L (21.0-32.0); Chloride 101 mmol/L (98-107); Estimated GFR (African America 53 (>=60); Estimated GFR (Non-African Ame 43 (>=60); Glucose 138 mg/dL (74-106); Potassium 4.5 mmol/L (3.5-5.1); Sodium 137 mmol/L (136-145)
== END 2024-07-16 12:21 | disposition home or self-care (01) ==
LOC: LAB 12:20
PROVIDERS: PCP Internal Medicine; Visit Provider Internal Medicine
DX: D64.9 Anemia, unspecified (principal); I10 Essential (primary) hypertension; E11.65 Type 2 diabetes mellitus with hyperglycemia
CPT/HCPCS: 36415; 80048; 85025

== ENCOUNTER 2024-07-29 08:49 | Outpatient (OUT) | payer OTHER, SELFPAY ==
--- NOTE | 2024-07-29 08:52 | US_ITS ---
The [address] [address] Patient Name: DALE NUNN MRN: [id number] date: 1960 Sex: M Assigned Patient Location: US Current Patient Location: US Accession/Order Number: [id number] Exam Date: 07/29/2024 08:53 Report Date: 07/29/2024 10:17 At the request of: ESTEPHANIA OLIVO Procedure: US renal BI EXAMINATION: US renal BI HISTORY: Acute Kidney Injury COMPARISON: No relevant comparison available. TECHNIQUE: Ultrasound examination was performed of the kidneys and urinary bladder. FINDINGS: RIGHT KIDNEY: No evidence of pelvocaliectasis, mass, or calculi. Benign-appearing 8 mm cyst. Normal parenchymal echogenicity. Color Doppler demonstrates blood flow within the kidney. Kidney: 12.2 x 6.7 x 7.5 cm. LEFT KIDNEY: Nonobstructing 3 mm stone. Mild cortical thinning, 1.0 cm. No appreciable mass. Normal parenchymal echogenicity. Color Doppler demonstrates blood flow within the kidney. Kidney: 11.3 x 5.8 x 6.5 cm BLADDER: No visible wall thickening, mass, or calculi. US/US renal BI IMPRESSION: 1. Nonobstructing left nephrolithiasis. 2. No acute or suspicious findings. 3. Minimal chronic, likely age-related changes. Electronically authenticated by: TRAVIS EGAN Date: 07/29/2024 10:17
--- OUTSIDE RECORDS SUMMARY | 2024-07-29 08:56 | XMS_ITS | CCD ---
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 Name Role Phone Remberto Bonny Unavailable Bonny Raymundo Unavailable Malik MOLINA Attending Unavailable BALL PROVIDER, DELONTE Referring Unavaila ble DO Delonte Tejeda Primary Care Provider MD Deon Greene Attending Provider [phone] Delonte Tejeda Unavailable NIKHIL, DR BEST Consulting [...] Unavailable DO Delonte Tejeda Primary Care Provider GABRIELLA Raymundo Attending Provider DO Delonte Tejeda Primary Care Provider [phone] DO Delonte Tejeda Attending Provider Delonte Tejeda Admitting Unavailable Delonte Tejeda Primary Care Unavailable Nikhil, Delonte Attending Unavailable Bonny Raymundo Admitting Unavailable Bonny Raymundo Attending Unavailable Delonte Tejeda Primary Care Unavailable REBECCA, FELIPE Attending Unavailable LACHO LACY Attending Unavailable REBECCA, FELIPE Attending Unavailable REBECCA, FELIPE Admitting Unavailable REBECCA, FELIPE Attending Unavailable FELIPE FATIMA Referring Unavailable REBECCA, FELIPE Referring Unavailable KOLBY AMBROCIO Attending Unavailable Medications Current Medications Medication Drug [...] Subcutaneous weekly for 90 days Jan, Active Allopurinol (20 sources) Xanthine Oxidase Inhibitor Start: 06-29-2024 take 1 tablet by mouth once daily Allopurinol Active 0 .ROUTE .COMPLEX 90 June 29, 2024 8:34am TAKE 1 TABLET BY MOUTH DAILY Start: 06-27-2021 End: 06-29-2024 take 300 mg by mouth once daily Allopurinol Discontinued 300 MG PO Daily June 27, 2021 12:00am June 29, 2024 8:35am amiodarone hydrochloride 200 mg oral tablet (2 sources) Antiarrhythmic Start: 03-12-2024 take 200 mg by [...] 37.5 MG PO Every 12 hours 270 January 27, 2024 5:57pm March 12, 2024 9:04am Start: 01-06-2024 End: 01-27-2024 take 1 tablet by mouth twice daily Carvedilol Discontinued 0 .ROUTE .COMPLEX 180 January 06, 2024 4:03pm January 27, 2024 5:58pm TAKE ONE TABLET BY MOUTH TWICE A DAY Start: 12-18-2023 End: 01-06-2024 take 37.5 mg by mouth twice daily Carvedilol Discontinued 37.5 MG PO Twice daily December 18, 2023 7:57pm January 06, 2024 [...] once daily Furosemide Active 0 .ROUTE .COMPLEX February 23, 2024 1:45pm TAKE 1 TABLET [...] ml Subcutaneous Once a day Active Insulin Glargine-Yfgn (1 source) Start: 04-28-2024 inject 50 [IU] by subcutaneous injection once daily Insulin Glargine-Yfgn Active 50 UNIT SUBCUT Daily April 28, 2024 12:00am Lisinopril (20 sources) Angiotensin Converting Enzyme Inhibitor Start: 06-29-2024 take 1 tablet by mouth once daily Lisinopril Active 0 .ROUTE .COMPLEX June 29, 2024 8:34am TAKE 1 TABLET BY MOUTH DAILY Start: 06-27-2021 End: 06-29-2024 take 40 mg by mouth once daily Lisinopril Discontinued 40 MG PO Daily June 27, 2021 12:00am June 29, 2024 8:35am ozempic (1 mg/dose) 4 mg/3ml solution pen-injector (5 sources) Start: 01-29-2023 inject 1 mg by subcutaneous injection every week Ozempic (1 MG/DOSE) 4 MG/3ML 1 MG Subcutaneous weekly Jan, Active Potassium Chloride (20 sources) Start: 06-29-2024 take 1 tablet by eriberto th once daily Potassium Chloride Active 0 .ROUTE .COMPLEX June 29, 2024 8:34am TAKE ONE TABLET BY MOUTH DAILY Start: 06-27-2021 End: 06-29-2024 take 20 mEq by mouth once daily Potassium Chloride Discontinued 20 MEQ PO Daily June 27, 2021 12:00am June 29, 2024 8:35am Potassium Chlori de 20 MEQ 1 packet [...] Subcutaneous weekly for 28 days Active Semaglutide (4 sources) Start: 02-06-2024 inject 1 mg by subcutaneous injection every week Semaglutide (Ozempic) 1 mg/dose (4 mg/3 mL) pen injector Active 1 MG SUBCUT every week February 06, 2024 5:39pm Start: 02-04-2024 End: 02-06-2024 inject 1 mg by subcutaneous injection every week Semaglutide (Ozempic) 1 mg/dose (4 mg/3 mL) pen injector Discontinued 1 MG SUBCUT every week 9 90 February 04, 2024 12:00am February 06, 2024 5:39pm tiZANidine 2 mg oral tablet (20 sources) Central alpha-2 Adrenergic Agonist Start: 01-09-2023 take 1 tablet by mouth once at bedtime as needed for pain tiZANidine HCl 2 MG 1 tablet as needed Orally q HS as needed for pain and stiffness for 14 days Jul, Active ubiquinol 100 mg oral capsule (2 sources) Start: 03-12-2024 take 1 capsule by mouth [...] (Original) flecainide acetate 100 mg oral tablet (12 sources) Antiarrhythmic Start: 06-27-2021 End: 10-07-2022 take 100 mg by mouth every twelve hours Flecainide Discontinued 100 MG PO Q12H June 27, 2021 12:00am October 07, 2022 9:41am Insulin Glargine (Lantus U-100 Insulin) 100 unit/mL Solution (5 sources) Start: 06-27-2021 End: 04-28-2024 inject 50 [IU] by subcutaneous injection twice daily Insulin Glargine (Lantus U-100 Insulin) 100 unit/mL Solution Discontinued 50 UNIT SUBCUT Twice daily June 27, 2021 12:00am April 28, 2024 8:41pm Start: 06-27-2021 inject 50 [IU] by enciso bcutaneous injection twice daily Insulin Glargine (Lantus U-100 Insulin) 100 unit/mL Solution Active 50 UNIT SUBCUT Twice daily June 27, 2021 12:00am Start: 06-27-2021 inject 50 [IU] by enciso bcutaneous injection twice daily Insulin Glargine (Lantus U-100 Insulin) 100 unit/mL Solution Active 50 UNIT SUBCUT Twice daily June 26, 2021 11:00pm metoprolol tartrate 50 mg oral tablet (10 sources) beta-Adrenergic Ezequiel Start: 06-27-2021 End: 10-07-2022 [...] Problem Classification Problem Date Documented Date Episodic/Chronic Acute and unspecified renal failure (1 source) Acute renal failure syndrome; Translations: [Acute kidney failure, unspecified] 07-16-2024 Episodic Allergic reactions (20 sources) Idiopathic urticaria; Translations: [Idiopathic urticaria] Onset: 01-04-2016 Episodic Cardiac dysrhythmias (20 sources) Paroxysmal atrial fibrillation; Translations: [Paroxysmal atrial fibrillation] Onset: 01-22-2024 03-10-2024 Chronic Deficiency and other anemia (20 sources) Anemia; Translations: [Anemia, unspecified] 07-16-2024 Episodic Deficiency and other anemia (5 sources) Anemia, unspecified; Translations: [Anemia, unspecified] Onset: 03-15-2022 Episodic Diabetes mellitus with complications (20 sources) [...] Long-term current use of insulin; Translations: [termite helper (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] Episodic Other and [...] Episodic Other diseases of veins and lymphatics (8 sources) Venous insufficiency (chronic) (peripheral); Translations: [Venous (peripheral) insufficiency, unspecified] Episodic Other diseases of veins and lymphatics (2 sources) Venous insufficiency of leg; Translations: [Venous insufficiency [...] Chronic Other nutritional; endocrine; and metabolic disorders (6 sources) Obesity; Translations: [Obesity, unspecified] 03-12-2024 Chronic Other nutritional; endocrine; and metabolic disorders (1 source) Obesity, unspecified; Translations: [Obesity, unspecified] 07-16-2024 Chronic Other screening for suspected conditions (not mental disorders or infectious disease) (2 sources) Encounter for screening for malignant neoplasm of prostate Episodic Other upper respiratory infections (1 source) Acute upper respiratory infection, unspecified Episodic Residual codes; unclassified (20 sources) Obstructive sleep apnea syndrome; Translations: [Obstructive sleep apnea (adult) (pediatric)] Onset: 06-04-2022 Chronic Residual codes; unclassified (14 sources) Obstructive sleep apnea (adult) (pediatric); Translations: [...] sources) Palpitations; Translations: [Palpitations] Onset: 05-13-2014 Episodic Immunizations and screening for infectious disease [...] Onset: 01-14-2018 Episodic Other aftercare (6 sources) custodial (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; Translations: [custodial (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] Onset: 12-16-2023 Episodic [...] Insomnia; Translations: [Insomnia, unspecified] Onset: 08-01-2014 Episodic Residual codes; unclassified (2 sources) Personal history of other medical treatment; Translations: [Personal history of other medical treatment] Onset: 04-21-2024 Episodic Screening and history of mental health [...] Value Interpretation Reference Range Facility Office Visiton 07-27-2024 Follow-up visit [id number] Rosalind Rush 1960 M Date Provider Department Center 07/27/2024 FELIPE COWAN DUDLEY [place] [facility] Family History Problem Relation Age of Onset Cancer Mother Heart disease Mother Cancer Father Family Status - Relation Status Age at Mother Father Level of Service:47227 NE OFFICE/OUTPATIENT ESTABLISHED LOW MDM 20 MIN Normal [facility] Glucose mean value [Mass/vol ume] in Blood Estimated from glycated hemoglobinon 06-23-2024 Average glucose Estimated from glycated hemoglobin (Bld) [Mass/Vol] 114 mg/dL [facility] Laboratory - Hematology and Cell countson 06-23-2024 HbA1c (Bld) [Mass fraction] 5.6 % 4.5-6.2 [facility] Comment on above: ADA RECOMMENDED LIMI T 4.0 - 6.0ADA THERAPEUTIC TARGET < 7.0ACTION SUGGESTED> 7.0 Office Visiton 04-21-2024 Follow-up visit [id number] Rosalind Rush Woodrow 1960 M Date Provider Department Center 04/21/2024 LACHO JORDAN DUDLEY [facility] Family History Problem Relation Age of Onset Cancer Mother Heart disease Mother Cancer Father Family Status - Relation Status Age at Mother Father Level of Service:81684 NE POSTOP FOLLOW UP VISIT RELATED TO ORIGINAL PX Normal [facility] 03-24-2024 [facility] Electrophysiology Consult Note Reason for visit: persistent [...] any shortness of breath, chest pain, fatigue. [id number] at least 2 for hypertension, DM 2, [...] on file Intimate Partner Violence: Unknown (12/11/2023) [place] Safety & Environment Fear of Current or [...] swelling Neurologic Gait (more content not included)... Normal [facility] NURSNOTBogdan 03-24-2024 MARINE RN educated pt on d/ c instructions. RN encouraged pt to voice any questions or concerns. Pt verbalizes no questions or concerns at this time. Pt was wheeled off of unit with all of belongings. [facility] Orders Onlyon 03-16-2024 Orders Only [id number] Rosalind Rush C 1960 M Date Provider Department Center 03/16/2024 CONNIE BYRNE [facility] Family History Problem Relation Age of Onset Cancer Mother Heart disease Mother Cancer Father Family Status - Relation Status Age at Mother Father Normal [facility] Office Visiton 01-20-2024 Follow-up visit [id number] Rosalind Rush C 1960 Date Provider Department Center 01/20/2024 FELIPE COWAN [facility] Family History Problem Relation Age of Onset Cancer Mother Heart disease Mother Cancer Father Family Status - Relation Status Age at Mother Father Level of Service:41491 NE OFFICE/OUTPATIENT NEW MODERATE MDM 45 MINUTES Reason for Visit and Comments: Follow-up [875176] [facility] Orders Onlyon 01-20-2024 Orders Only [id number] Rosalind Rush C 1960 Date Provider Department Center 01/20/2024 FATEMEH RODAS [facility] Family History Problem Relation Age of Onset Cancer Mother Heart disease Mother Cancer Father Family Status - Relation Status Age at Mother Father [facility] 29on 12-17-2023 29 Addended by: BETSY PABLO on: 12/17/2023 10:20 AM Modules accepted: Orders Normal [facility] Office Visiton 12-17-2023 Follow-up visit [id number] Rosalind Rush n C 1960 Date Provider Department Center 12/17/2023 KOLBY ROSS [facility] Family History Problem Relation Age of Onset Cancer Mother Heart disease Mother Cancer Father Family Status - Relation Status Age at Mother Father Level of Service:81592 NE OFFICE/OUTPATIENT NEW MODERATE MDM 45 MINUTES [facility] ECH echo transthoracicon ECH echo transthoracic [facility] [place] [address] Echocardiogram Signed Patient: Salomón Rush MR#: [id number] 90 : 1960 Acct:[id number] Age/Sex: 62 / M ADM Date: 10/17/23 Loc: Room: Type: [facility] CLI Attending Dr: Delonte Tejeda DO Ordering Provider: Delonte Tejeda DO Date of Service: 10/17/23/ ECH/ECH echo transthoracic: Chronic Afib. SOB. Copies to: DO Ortiz Coronado MD Weight: 320 lb Performed By: Patricia iGllis CATHRYN BSA: 2.5 m2 BP: 142/82 mmHg Reason [...] By: Ortiz Singletary MD 10/17/23 1304 Normal [facility] XR hip LT min 2V(w/wo pelvis )*on 06-05-2023 XR hip LT min 2V(w/wo pelvis)* [facility] [place] [address] XRay Report Signed Patient: Salomón Rush MR#: [id number] 90 : 1960 Acct:[id number] Age/Sex: 62 / M ADM Date: 06/05/23 Loc: [facility] Room: Type: [facility] Attending Dr: Bonny Raymundo APRN Copies [...] Calvin Thibodeaux M.D.06/05/2023 12:25 PM Dictation Location: [place] [address] Transcribed By: [facility] 06/05/23 1225 Dictated By: Calvin Thibodeaux II, MD 06/05/23 1223 Signed By: 06/05/23 1225 Normal [facility] XR hip LT min 2V(w/wo pelvis)* [facility] [employer] Other XR hip LT min 2V(w/wo pelvis)* [facility] [place] [employer] Other XR hip LT min 2V(w/wo pelvis)* [address] [place] [address] [employer] Other XR hip LT min 2V(w/wo pelvis)* [place] [address] [employer] Other XR hip LT min 2V(w/wo pelvis)* XRay Report [employer] Other XR hip LT min 2V(w/wo pelvis)* Signed [employer] Other XR hip LT min 2V(w/wo pelvis)* Patient: Salomón Rush MR#: [id number] [employer] Other XR hip LT min 2V(w/wo pelvis)* 90 [employer] Other XR hip LT min 2V(w/wo pelvis)* : 1960 Acct:[id number] [employer] Other XR hip LT min 2V(w/wo pelvis)* Age/Sex: 62 / M ADM Date: 06/05/23 [employer] Other XR hip LT min 2V(w/wo pelvis)* Loc: [facility] Room: Type: REG CLI [employer] Other XR hip LT min 2V(w/wo pelvis)* Attending Dr: Bonny Raymundo [facility] [employer] Other XR hip LT min 2V(w/wo pelvis)* Copies to: Bonny Raymundo [employer] Other XR hip LT min 2V(w/wo pelvis)* Ordering Provider: Bonny Raymundo APRN [employer] Other XR hip LT min 2V(w/wo pelvis)* Date of Service: 06/05/23 [employer] Other XR hip LT min 2V(w/wo pelvis)* XR/XR hip LT min 2V(w/wo pelvis)*: Left hip pain [employer] Other XR hip LT min 2V(w/wo pelvis)* XR hip LT min 2V(w/wo pelvis)* 06/05/2023 11:57 AM [employer] Other XR hip LT min 2V(w/wo pelvis)* SIGNS AND SYMPTOMS: Left hip pain [employer] Other XR hip LT min 2V(w/wo pelvis)* PROTOCOL: Frontal radiograph of the pelvis with frontal and frog-leg views of the left hip [employer] Other XR hip LT min 2V(w/wo pelvis)* COMPARISON: None [employer] Other XR hip LT min 2V(w/wo pelvis)* FINDINGS: [employer] Other XR hip LT min 2V(w/wo pelvis)* There is mild narrowing of the joint spaces of the hips. Degenerative changes are noted in the [employer] Other XR hip LT min 2V(w/wo pelvis)* lumbar spine and sacroiliac joints. The bony ring of the pelvis is intact. There is no fracture or [employer] Other XR hip LT min 2V(w/wo pelvis)* dislocation. Vascular calcifications are present. [employer] Other XR hip LT min 2V(w/wo pelvis)* XR/XR hip LT min 2V(w/wo pelvis)* [employer] Other XR hip LT min 2V(w/wo pelvis)* IMPRESSION: [employer] Other XR hip LT min 2V(w/wo pelvis)* No fracture or dislocation. [employer] Other XR hip LT min 2V(w/wo pelvis)* Degenerative changes are noted in the lumbar spine and sacroiliac joints. [employer] Other XR hip LT min 2V(w/wo pelvis)* Impression dictated by: Calvin Thibodeaux M.D.06/05/2023 12:25 PM [employer] Other XR hip LT min 2V(w/wo pelvis)* Dictation Location: [place] [address] [employer] Other XR hip LT min 2V(w/wo pelvis)* Transcribed By: NORMA 06/05/23 1225 [employer] Other XR hip LT min 2V(w/wo pelvis)* Dictated By: Calvin Thibodeaux II, MD 06/05/23 1223 [employer] Other XR hip LT min 2V(w/wo pelvis)* Signed By: [employer] Other XR hip LT min 2V(w/wo pelvis)* 06/05/23 1225 [employer] Other CBC AUTO DIFFon 02-21-2023 BASO # 0.1 103/ul Normal 0.0-0.1 [facility] Comment on above: Performed By: #### L IPID, T4, TSH, CMP #### [facility] [address] [place] [address] Dr. Rena Barone Basophils/100 WBC (Bld) 0.4 % Normal 0.2-2.0 [facility] Comment on above: Performed By: #### L IPID, T4, TSH, CMP #### [facility] [address] [place] [address] Dr. Rena Barone EO # 0.4 103/ul Normal 0.0-0.7 [facility] Comment on above: Performed By: #### L IPID, T4, TSH, CMP #### [facility] [address] [place] [address] Dr. Rena Barone Eosinophils/100 WBC (Bld) 3.1 % Normal 0.9-7.0 [facility] Comment on above: Performed By: #### L IPID, T4, TSH, CMP #### [facility] [address] [place] [address] Dr. Rena Barone Erythrocyte distribution width (RBC) [Ratio] 12.5 % Normal 11.0-15.0 [facility] Comment on above: Performed By: #### L IPID, T4, TSH, CMP #### [facility] [address] [place] [address] Dr. Rena Barone Hematocrit (Bld) [Volume fraction] 38.9 % Critically low 42.0-54.0 [facility] Comment on above: Performed By: #### L IPID, T4, TSH, CMP #### [facility] [address] [place] [address] Dr. Rena Barone Hemoglobin (Bld) [Mass/Vol] 13.2 g/dL Critically low 14.0-18.0 [facility] Comment on above: Performed By: #### L IPID, T4, TSH, CMP #### [facility] [address] [place] [address] Dr. Rena Barone IG # 0.05 10e3/ul Critically high 0.00-0.03 [facility] Comment on above: Performed By: #### L IPID, T4, TSH, CMP #### [facility] [address] [place] [address] Dr. Rena Barone IG % 0.4 % Normal 0.0-0.5 [facility] Comment on above: Performed By: #### L IPID, T4, TSH, CMP #### [facility] [address] [place] [address] Dr. Rena Barone LYMPH # 3.2 103/ul Normal 1.2-3.8 [facility] Comment on above: Performed By: #### L IPID, T4, TSH, CMP #### [facility] [address] [place] [address] Dr. Rena Barone Lymphocytes/100 WBC (Bld) 28.6 % Normal 20.5-60.0 [facility] Comment on above: Performed By: #### L IPID, T4, TSH, CMP #### [facility] [address] [place] [address] Dr. Rena Barone MANUAL DIFF REQ NO Normal [facility] Comment on above: Performed By: #### L IPID, T4, TSH, CMP #### [facility] [address] [place] [address] Dr. Rena Barone MCH (RBC) [Entitic mass] 33.7 pg Normal 25.9-34.0 [facility] Comment on above: Performed By: #### L IPID, T4, TSH, CMP #### [facility] [address] [place] [address] Dr. Rena Barone MCHC (RBC) [Mass/Vol] 33.9 g/dL Normal 29.9-35.2 [facility] Comment on above: Performed By: #### L IPID, T4, TSH, CMP #### [facility] [address] [place] [address] Dr. Rena Barone MCV (RBC) [Entitic vol] 99.2 fL Critically high 80.0-94.0 [facility] Comment on above: Performed By: #### L IPID, T4, TSH, CMP #### [facility] [address] [place] [address] Dr. Rena Barone MONO # 1.0 103/ul Critically high 0.3-0.8 [facility] Comment on above: Performed By: #### L IPID, T4, TSH, CMP #### [facility] [address] [place] [address] Dr. Rena Barone Monocytes/100 WBC (Bld) 8.8 % Normal 1.7-12.0 [facility] Comment on above: Performed By: #### L IPID, T4, TSH, CMP #### [facility] [address] [place] [address] Dr. Rena Barone NEUT # 6.6 103/ul Critically high 1.4-6.5 [facility] Comment on above: Performed By: #### L IPID, T4, TSH, CMP #### [facility] [address] [place] [address] Dr. Rena Barone Neutrophils/100 WBC (Bld) 58.7 % Normal 43.0-75.0 [facility] Comment on above: Performed By: #### L IPID, T4, TSH, CMP #### [facility] [address] [place] [address] Dr. Rena Barone Platelet mean volume (Bld) [Entitic vol] 11.2 fL Normal 9.5-13.5 [facility] Comment on above: Performed By: #### L IPID, T4, TSH, CMP #### [facility] [address] [place] [address] Dr. Rena Barone PLT 202 103/ul Normal 150-450 [facility] Comment on above: Performed By: #### L IPID, T4, TSH, CMP #### [facility] [address] [address] [address] Rena Barone RBC 3.92 106/ul Critically low 4.70-6.10 [facility] Comment on above: Performed By: #### L IPID, T4, TSH, CMP #### [facility] [address] [place] [address] Dr. Rena Barone WBC 11.3 103/ul Critically high 4.0-11.0 [facility] Comment on above: Performed By: #### L IPID, T4, TSH, CMP #### [facility] [address] [place] [address] Dr. Rena Barone LIPID PROFILEon 02-21-2023 CHOL-HDL RATIO NORM SEE BELOW Normal [facility] Comment on above: Result Comment: 3.3 - 4.4 LOW RISK 4.4 - 7.1 AVERAGE RISK 7.1 - 11.0 MODERATE RISK >11.0 HIGH RISK Performed By: #### L IPID, T4, TSH, CMP #### [facility] [address] [address] [address] Rena Barone Cholesterol [Mass/Vol] 127 mg/dL Normal <=200 [facility] Comment on above: Performed By: #### L IPID, T4, TSH, CMP #### [facility] [address] [address] [address] Rena Barone Cholesterol in HDL [Mass/Vol] 24 mg/dL Critically low 40-60 [facility] Comment on above: Performed By: #### L IPID, T4, TSH, CMP #### [facility] [address] [place] [address] Dr. Rena Barone Cholesterol in LDL [Mass/Vol] 58.4 mg/dL Normal [facility] Comment on above: Performed By: #### L IPID, T4, TSH, CMP #### [facility] [address] [place] [address] Dr. Rena Barone Cholesterol.total/C holesterol in HDL [Mass ratio] 5.3 {ratio} Normal [facility] Comment on above: Performed By: #### L IPID, T4, TSH, CMP #### [facility] [address] [place] [address] [address] Rena Barone HDL NORMAL > or = 60 mg/dl - LO W CARDIOVASCULAR RISK <40 mg/dl - HIGH CARDIOVASCULAR RISK Normal [facility] Comment on above: Performed By: #### L IPID, T4, TSH, CMP #### [facility] [address] [address] [address] Rena Barone LDL CALC NORMAL SEE BELOW Normal [facility] Comment on above: Result Comment: <100 mg/dl OPTIMAL 100 - 129 mg/dl NEAR OR ABOVE OPTIMAL 130 - 159 mg/dl BORDERLINE HIGH 160 - 189 mg/dl HIGH >190 mg/dl VERY HIGH Performed By: #### L IPID, T4, TSH, CMP #### [facility] [address] [address] [address] Rena Barone Triglyceride [Mass/Vol] 223 mg/dL Critically high <=150 [facility] Comment on above: Performed By: #### L IPID, T4, TSH, CMP #### [facility] [address] [place] [address] [address] Rena Barone VLDL CALC 44.6 mg/dL Normal [facility] Comment on above: Performed By: #### L IPID, T4, TSH, CMP #### [facility] [address] [place] [address] [address] Rena Barone PROF 14(COMP METB)on 023 Albumin [Mass/Vol] 3.8 g/dL Normal 3.4-5.0 [facility] Comment on above: Performed By: #### L IPID, T4, TSH, CMP #### [facility] [address] [place] [address] Dr. Rena Barone Albumin/Globulin [Mass ratio] 0.9 {ratio} Normal [facility] Comment on above: Performed By: #### L IPID, T4, TSH, CMP #### [facility] [address] [place] [address] Dr. Rena Barone ALP [Catalytic activity/Vol] 99 U/L Normal 46-116 [facility] Comment on above: Performed By: #### L IPID, T4, TSH, CMP #### [facility] [address] [address] [address] Rena Barone ALT [Catalytic activity/Vol] 31 U/L Normal 16-63 [facility] Comment on above: Performed By: #### L IPID, T4, TSH, CMP #### [facility] [address] [address] [address] Rena Barone Anion gap [Moles/Vol] 10.3 mmol/L Normal [facility] Comment on above: Performed By: #### L IPID, T4, TSH, CMP #### [facility] [address] [address] [address] Rena Barone AST [Catalytic activity/Vol] 23 U/L Normal 15-37 [facility] Comment on above: Performed By: #### L IPID, T4, TSH, CMP #### [facility] [address] [place] [address] Dr. Rena Barone Bilirubin [Mass/Vol] 0.5 mg/dL Normal 0.2-1.0 [facility] Comment on above: Performed By: #### L IPID, T4, TSH, CMP #### [facility] [address] [address] [address] Rena Barone Calcium [Mass/Vol] 9.3 mg/dL Normal 8.5-10.1 [facility] Comment on above: Performed By: #### L IPID, T4, TSH, CMP #### [facility] [address] [address] [address] Rena Barone Chloride [Moles/Vol] 100 mmol/L Normal 98-107 [facility] Comment on above: Performed By: #### L IPID, T4, TSH, CMP #### [facility] [address] [address] [address] Rena Barone CO2 [Moles/Vol] 25.9 mmol/L Normal 21.0-32.0 [facility] Comment on above: Performed By: #### L IPID, T4, TSH, CMP #### [facility] [address] [place] [address] Dr. Rena Barone Creatinine [Mass/Vol] 1.34 mg/dL Critically high 0.70-1.30 [facility] Comment on above: Performed By: #### L IPID, T4, TSH, CMP #### [facility] [address] [address] [address] Rena Barone EGFR-AF BOLIVIAN >60 Normal >=60 [facility] Comment on above: Performed By: #### L IPID, T4, TSH, CMP #### [facility] [address] [address] [address] Rena Barone EGFR-NON AF BOLIVIAN 54 mL/min/1.73m2 Critically low >=60 [facility] Comment on above: Performed By: #### L IPID, T4, TSH, CMP #### [facility] [address] [place] [address] Dr. Rena Barone Globulin (S) [Mass/Vol] 4.1 g/dL Normal [facility] Comment on above: Performed By: #### L IPID, T4, TSH, CMP #### [facility] [address] [place] [address] Dr. Rena Barone Glucose [Mass/Vol] 108 mg/dL Critically high 74-106 T [facility] Comment on above: Performed By: #### L IPID, T4, TSH, CMP #### [facility] [address] [place] [address] Dr. Rena Barone Potassium [Moles/Vol] 4.2 mmol/L Normal 3.5-5.1 [facility] Comment on above: Performed By: #### L IPID, T4, TSH, CMP #### [facility] [address] [place] [address] Dr. Rena Barone Protein [Mass/Vol] 7.9 g/dL Normal 6.4-8.2 [facility] Comment on above: Performed By: #### L IPID, T4, TSH, CMP #### [facility] [address] [place] [address] Dr. Rena Barone Sodium [Moles/Vol] 132 mmol/L Critically low 136-145 Th [facility] Comment on above: Performed By: #### L IPID, T4, TSH, CMP #### [facility] [address] [address] [address] Rena Barone Urea nitrogen [Mass/Vol] 30.0 mg/dL Critically high 7.0-18.0 [facility] Comment on above: Performed By: #### L IPID, T4, TSH, CMP #### [facility] [address] [address] [address] Rena Barone Urea nitrogen/Creatinine [Mass ratio] 22.4 mg/mg Normal [facility] Comment on above: Performed By: #### L IPID, T4, TSH, CMP #### [facility] [address] [address] [address] Rena Barone T4on 02-21-2023 T4 [Mass/Vol] 5.20 ug/dL Normal 4.50-12.10 [facility] Comment on above: Performed By: #### L IPID, T4, TSH, CMP #### [facility] [address] [address] [address] Rena Barone TSHon 02-21-2023 TSH 2.379 uIU/mL Normal 0.358-3.740 [facility] Comment on above: Performed By: #### L IPID, T4, TSH, CMP #### [facility] [address] [place] [address] Dr. Rena Barone GLYCOHEMOGLOBIN A1Con 2022 ADA RECOMMENDATION SEE BELOW Normal [facility] Comment on above: Result Comment: ADA RECOMMENDED LIMIT 4.0 - 6.0 ADA THERAPEUTIC TARGET < 7.0 ACTION SUGGESTED > 7.0 Performed By: #### L IPID, T4, TSH, CMP #### [facility] [address] [address] [address] Rena Barone Glucose [Mass/Vol] 169 mg/dL Normal [facility] Comment on above: Performed By: #### L IPID, T4, TSH, CMP #### [facility] [address] [place] [address] Dr. Rena Barone HbA1c (Bld) [Mass fraction] 7.5 % Critically high 4.5-6.2 [facility] Comment on above: Performed By: #### L IPID, T4, TSH, CMP #### [facility] [address] [address] [address] Rena Barone Glucose Glucometer (BldC) [M ass/Vol]Ordered By: Deon Greene on 10-07-2022 Glucose [Mass/Vol] 170 mg/dL [facility] Comment on above: Random Glucose Refer ence Range is dependent on time and content of last meal. Glucose of more than 200 mg/dL in a nonstressed, ambulatory subject supports the diagnosis of Diabetes Mellitus. GLYCOHEMOGLOBIN A1Con 2021 ADA RECOMMENDATION SEE BELOW Normal [facility] Comment on above: Result Comment: ADA RECOMMENDED LIMIT 4.0 - 6.0 ADA THERAPEUTIC TARGET < 7.0 ACTION SUGGESTED > 7.0 Performed By: #### L IPID, T4, TSH, CMP #### [facility] [address] [address] [address] Rena Barone Glucose [Mass/Vol] 160 mg/dL Normal [facility] Comment on above: Performed By: #### L IPID, T4, TSH, CMP #### [facility] [address] [address] [address] Rena Barone HbA1c (Bld) [Mass fraction] 7.2 % Critically high 4.5-6.2 [facility] Comment on above: Performed By: #### L IPID, T4, TSH, CMP #### [facility] [address] [address] [address] Rena Barone Physician Referralon 022 Physician Referral [id number] Normal [facility] COVID Quick Testingon 2021 Result Positive [employer] Other METHYLMALONIC ACID (MMA)on 0 03-23-2022 Methylmalonic Acid, Serum 210 nmol/L Normal 0-378 [facility] Comment on above: Performed By: #### L IPID, T4, TSH, CMP #### [facility] [address] [address] [address] Rena Barone FOLATE ([facility])on Folate 16.6 ng/mL Normal >3.0 [facility] Comment on above: Result Comment: A se rum folate concentration of less than 3.1 ng/mL is considered to represent clinical deficiency. Performed By: #### L IPID, T4, TSH, CMP #### [facility] [address] [address] [address] Rena Barone GLYCOHEMOGLOBIN A1Con 2021 ADA RECOMMENDATION SEE BELOW Normal [facility] Comment on above: Result Comment: ADA RECOMMENDED LIMIT 4.0 - 6.0 ADA THERAPEUTIC TARGET < 7.0 ACTION SUGGESTED > 7.0 Performed By: #### L IPID, T4, TSH, CMP #### [facility] [address] [place] [address] Dr. Rena Barone Glucose [Mass/Vol] 160 mg/dL Normal [facility] Comment on above: Performed By: #### L IPID, T4, TSH, CMP #### [facility] [address] [address] [address] Rena Barone HbA1c (Bld) [Mass fraction] 7.2 % Critically high 4.5-6.2 [facility] Comment on above: Performed By: #### L IPID, T4, TSH, CMP #### [facility] [address] [address] [address] Rena Barone RETICULOCYTEon 03-15-2022 RETIC 1.64 % Normal 0.60-3.10 [facility] Comment on above: Performed By: #### R ETIC #### [facility] [address] [address] [address] Rena Barone VITAMIN B12on 03-15-2022 Cobalamin (Vitamin B12) [Mass/Vol] 386.0 pg/mL Normal 193.0-986.0 [facility] Comment on above: Performed By: #### L IPID, T4, TSH, CMP #### [facility] [address] [place] [address] Dr. Rena Barone CBC AUTO DIFFon 02-26-2022 BASO # 0.0 103/ul Normal 0.0-0.1 [facility] Comment on above: Performed By: #### L IPID, T4, TSH, CMP #### [facility] [address] [place] [address] Dr. Rena Barone Basophils/100 WBC (Bld) 0.3 % Normal 0.2-2.0 [facility] Comment on above: Performed By: #### L IPID, T4, TSH, CMP #### [facility] [address] [place] [address] Dr. Rena Barone EO # 0.2 103/ul Normal 0.0-0.7 [facility] Comment on above: Performed By: #### L IPID, T4, TSH, CMP #### [facility] [address] [place] [address] Dr. Rena Barone Eosinophils/100 WBC (Bld) 2.0 % Normal 0.9-7.0 [facility] Comment on above: Performed By: #### L IPID, T4, TSH, CMP #### [facility] [address] [place] [address] Dr. Rena Barone Erythrocyte distribution width (RBC) [Ratio] 12.9 % Normal 11.0-15.0 [facility] Comment on above: Performed By: #### L IPID, T4, TSH, CMP #### [facility] [address] [place] [address] Dr. Rena Barone Hematocrit (Bld) [Volume fraction] 38.1 % Critically low 42.0-54.0 [facility] Comment on above: Performed By: #### L IPID, T4, TSH, CMP #### [facility] [address] [place] [address] Dr. Rena Barone Hemoglobin (Bld) [Mass/Vol] 12.5 g/dL Critically low 14.0-18.0 [facility] Comment on above: Performed By: #### L IPID, T4, TSH, CMP #### [facility] [address] [place] [address] Dr. Rena Barone IG # 0.03 10e3/ul Normal 0.00-0.03 [facility] Comment on above: Performed By: #### L IPID, T4, TSH, CMP #### [facility] [address] [address] [address] Rena Barone IG % 0.3 % Normal 0.0-0.5 [facility] Comment on above: Performed By: #### L IPID, T4, TSH, CMP #### [facility] [address] [place] [address] Dr. Rena Barone LYMPH # 1.8 103/ul Normal 1.2-3.8 [facility] Comment on above: Performed By: #### L IPID, T4, TSH, CMP #### [facility] [address] [place] [address] Dr. Rena Barone Lymphocytes/100 WBC (Bld) 18.9 % Critically low 20.5-60.0 [facility] Comment on above: Performed By: #### L IPID, T4, TSH, CMP #### [facility] [address] [place] [address] Dr. Rena Barone MANUAL DIFF REQ NO Normal [facility] Comment on above: Performed By: #### L IPID, T4, TSH, CMP #### [facility] [address] [place] [address] Dr. Rena Barone MCH (RBC) [Entitic mass] 33.3 pg Normal 25.9-34.0 [facility] Comment on above: Performed By: #### L IPID, T4, TSH, CMP #### [facility] [address] [place] [address] Dr. Rena Barone MCHC (RBC) [Mass/Vol] 32.8 g/dL Normal 29.9-35.2 [facility] Comment on above: Performed By: #### L IPID, T4, TSH, CMP #### [facility] [address] [place] [address] Dr. Rena Barone MCV (RBC) [Entitic vol] 101.6 fL Critically high 80.0-94.0 [facility] Comment on above: Performed By: #### L IPID, T4, TSH, CMP #### [facility] [address] [address] [address] Rena Barone MONO # 0.8 103/ul Normal 0.3-0.8 [facility] Comment on above: Performed By: #### L IPID, T4, TSH, CMP #### [facility] [address] [place] [address] Dr. Rena Barone Monocytes/100 WBC (Bld) 9.0 % Normal 1.7-12.0 [facility] Comment on above: Performed By: #### L IPID, T4, TSH, CMP #### [facility] [address] [place] [address] Dr. Rena Barone NEUT # 6.5 103/ul Normal 1.4-6.5 [facility] Comment on above: Performed By: #### L IPID, T4, TSH, CMP #### [facility] [address] [place] [address] Dr. Rena Barone Neutrophils/100 WBC (Bld) 69.5 % Normal 43.0-75.0 [facility] Comment on above: Performed By: #### L IPID, T4, TSH, CMP #### [facility] [address] [place] [address] Dr. Rena Barone Platelet mean volume (Bld) [Entitic vol] 12.0 fL Normal 9.5-13.5 [facility] Comment on above: Performed By: #### L IPID, T4, TSH, CMP #### [facility] [address] [place] [address] Dr. Rena Barone PLT 166 103/ul Normal 150-450 [facility] Comment on above: Performed By: #### L IPID, T4, TSH, CMP #### [facility] [address] [place] [address] Dr. Rena Barone RBC 3.75 106/ul Critically low 4.70-6.10 [facility] Comment on above: Performed By: #### L IPID, T4, TSH, CMP #### [facility] [address] [address] [address] Rena Barone WBC 9.3 103/ul Normal 4.0-11.0 [facility] Comment on above: Performed By: #### L IPID, T4, TSH, CMP #### [facility] [address] [address] [address] Rena Barone LIPID PROFILEon 02-26-2022 CHOL-HDL RATIO NORM SEE BELOW Normal [facility] Comment on above: Result Comment: 3.3 - 4.4 LOW RISK 4.4 - 7.1 AVERAGE RISK 7.1 - 11.0 MODERATE RISK >11.0 HIGH RISK Performed By: #### L IPID, T4, TSH, CMP #### [facility] [address] [address] [address] Rena Barone Cholesterol [Mass/Vol] 133 mg/dL Normal <=200 [facility] Comment on above: Performed By: #### L IPID, T4, TSH, CMP #### [facility] [address] [address] [address] Rena Barone Cholesterol in HDL [Mass/Vol] 29 mg/dL Critically low 40-60 [facility] Comment on above: Performed By: #### L IPID, T4, TSH, CMP #### [facility] [address] [place] [address] Dr. Rena Barone Cholesterol in LDL [Mass/Vol] 66.8 mg/dL Normal [facility] Comment on above: Performed By: #### L IPID, T4, TSH, CMP #### [facility] [address] [place] [address] Dr. Rena Barone Cholesterol.total/C holesterol in HDL [Mass ratio] 4.6 {ratio} Normal [facility] Comment on above: Performed By: #### L IPID, T4, TSH, CMP #### [facility] [address] [place] [address] Dr. Rena Barone HDL NORMAL > or = 60 mg/dl - LO W CARDIOVASCULAR RISK <40 mg/dl - HIGH CARDIOVASCULAR RISK Normal [facility] Comment on above: Performed By: #### L IPID, T4, TSH, CMP #### [facility] [address] [address] [address] Rena Barone LDL CALC NORMAL SEE BELOW Normal [facility] Comment on above: Result Comment: <100 mg/dl OPTIMAL 100 - 129 mg/dl NEAR OR ABOVE OPTIMAL 130 - 159 mg/dl BORDERLINE HIGH 160 - 189 mg/dl HIGH >190 mg/dl VERY HIGH Performed By: #### L IPID, T4, TSH, CMP #### [facility] [address] [address] [address] Rena Barone Triglyceride [Mass/Vol] 186 mg/dL Critically high <=150 [facility] Comment on above: Performed By: #### L IPID, T4, TSH, CMP #### [facility] [address] [address] [address] Rena Barone VLDL CALC 37.2 mg/dL Normal [facility] Comment on above: Performed By: #### L IPID, T4, TSH, CMP #### [facility] [address] [address] [address] Rena Barone PROF 14(COMP METB)on 022 Albumin [Mass/Vol] 3.8 g/dL Normal 3.4-5.0 [facility] Comment on above: Performed By: #### L IPID, T4, TSH, CMP #### [facility] [address] [address] [address] Rena Barone Albumin/Globulin [Mass ratio] 1.0 {ratio} Normal [facility] Comment on above: Performed By: #### L IPID, T4, TSH, CMP #### [facility] [address] [address] [address] Rena Barone ALP [Catalytic activity/Vol] 83 U/L Normal 46-116 [facility] Comment on above: Performed By: #### L IPID, T4, TSH, CMP #### [facility] [address] [address] [address] Rena Barone ALT [Catalytic activity/Vol] 28 U/L Normal 16-63 [facility] Comment on above: Performed By: #### L IPID, T4, TSH, CMP #### [facility] [address] [place] [address] Dr. Rena Barone Anion gap [Moles/Vol] 15.9 mmol/L Normal [facility] Comment on above: Performed By: #### L IPID, T4, TSH, CMP #### [facility] [address] [place] [address] Dr. Rena Barone AST [Catalytic activity/Vol] 16 U/L Normal 15-37 [facility] Comment on above: Performed By: #### L IPID, T4, TSH, CMP #### [facility] [address] [place] [address] Dr. Rena Barone Bilirubin [Mass/Vol] 0.6 mg/dL Normal 0.2-1.0 [facility] Comment on above: Performed By: #### L IPID, T4, TSH, CMP #### [facility] [address] [place] [address] Dr. Rena Barone Calcium [Mass/Vol] 8.9 mg/dL Normal 8.5-10.1 [facility] Comment on above: Performed By: #### L IPID, T4, TSH, CMP #### [facility] [address] [place] [address] Dr. Rena Barone Chloride [Moles/Vol] 101 mmol/L Normal 98-107 [facility] Comment on above: Performed By: #### L IPID, T4, TSH, CMP #### [facility] [address] [place] [address] Dr. Rena Barone CO2 [Moles/Vol] 24.4 mmol/L Normal 21.0-32.0 [facility] Comment on above: Performed By: #### L IPID, T4, TSH, CMP #### [facility] [address] [place] [address] Dr. Rena Barone Creatinine [Mass/Vol] 1.09 mg/dL Normal 0.70-1.30 [facility] Comment on above: Performed By: #### L IPID, T4, TSH, CMP #### [facility] [address] [place] [address] Dr. Rena Barone EGFR-AF BOLIVIAN >60 Normal >=60 [facility] Comment on above: Performed By: #### L IPID, T4, TSH, CMP #### [facility] [address] [address] [address] Rena Barone EGFR-NON AF BOLIVIAN >60 Normal >=60 [facility] Comment on above: Performed By: #### L IPID, T4, TSH, CMP #### [facility] [address] [address] [address] Rena Barone Globulin (S) [Mass/Vol] 3.8 g/dL Normal [facility] Comment on above: Performed By: #### L IPID, T4, TSH, CMP #### [facility] [address] [place] [address] Dr. Rena Barone Glucose [Mass/Vol] 130 mg/dL Critically high 74-106 [facility] Comment on above: Performed By: #### L IPID, T4, TSH, CMP #### [facility] [address] [place] [address] Dr. Rena Barone Potassium [Moles/Vol] 4.3 mmol/L Normal 3.5-5.1 [facility] Comment on above: Performed By: #### L IPID, T4, TSH, CMP #### [facility] [address] [place] [address] Dr. Rena Barone Protein [Mass/Vol] 7.6 g/dL Normal 6.4-8.2 [facility] Comment on above: Performed By: #### L IPID, T4, TSH, CMP #### [facility] [address] [place] [address] Dr. Rena Barone Sodium [Moles/Vol] 137 mmol/L Normal 136-145 [facility] Comment on above: Performed By: #### L IPID, T4, TSH, CMP #### [facility] [address] [address] [address] Rena Barone Urea nitrogen [Mass/Vol] 26.0 mg/dL Critically high 7.0-18.0 [facility] Comment on above: Performed By: #### L IPID, T4, TSH, CMP #### [facility] [address] [address] [address] Rena Barone Urea nitrogen/Creatinine [Mass ratio] 23.9 mg/mg Normal [facility] Comment on above: Performed By: #### L IPID, T4, TSH, CMP #### [facility] [address] [address] [address] Rena Barone T4on 02-26-2022 T4 [Mass/Vol] 4.20 ug/dL Critically low 4.50-12.10 [facility] Comment on above: Performed By: #### L IPID, T4, TSH, CMP #### [facility] [address] [address] [address] Rena Barone TSHon 02-26-2022 TSH 3.428 uIU/mL Normal 0.358-3.740 [facility] Comment on above: Performed By: #### L IPID, T4, TSH, CMP #### [facility] [address] [address] [address] Rena Barone TSH RANGE SEE BELOW Normal [facility] Comment on above: Result Comment: <0.3 4 UIU/ml HYPERTHYROID 0.34-5.60 UIU/ml EUTHYROID >5.60 UIU/ml HYPOTHYROID Performed By: #### L IPID, T4, TSH, CMP #### [facility] [address] [address] [address] Rena Barone Vital Signs Date Time Vital Sign Value Performing Clinician Facility 07-16-2024 09:00-0400 Body mass index (BMI) [Ratio] 45.3 kg/m2 [facility] 07-16-2024 09:00-0400 Diastolic blood pressure 69 mm[Hg] [facility] 07-16-2024 09:00-0400 Heart rate 75 /min [facility] 07-16-2024 09:00-0400 Systolic blood pressure 108 mm[Hg] [facility] 07-13-2024 22:16-0400 Body height 177.8 cm [facility] 07-13-2024 22:16-0400 Body weight 143.33 kg [facility] 03-12-2024 09:46-0400 Body height 177.8 cm [facility] 03-12-2024 09:46-0400 Body mass index (BMI) [Ratio] 45.3 kg/m2 [facility] 03-12-2024 09:46-0400 Body weight 143.5 kg [facility] 03-12-2024 09:46-0400 Diastolic blood pressure 69 mm[Hg] [facility] 03-12-2024 09:46-0400 Heart rate 80 /min [facility] 03-12-2024 09:46-0400 Respiratory rate 16 /min [facility] 03-12-2024 09:46-0400 Systolic blood pressure 107 mm[Hg] [facility] 11-07-2023 09:00-0500 Body height 177.8 cm Delonte Ball Other [facility] [employer] Other 11-07-2023 09:00-0500 Body mass index (BMI) [Ratio] 45.11 kg/m2 Delonte Ball Other [facility] [employer] Other 11-07-2023 09:00-0500 Body weight 142.61 kg Delonte Ball Other [facility] [employer] Other 11-07-2023 09:00-0500 Diastolic blood pressure 86 mm[Hg] Delonte Ball Other [facility] [employer] Other 11-07-2023 09:00-0500 Respiratory rate 16 /min Delonte Ball Other [facility] [employer] Other 11-07-2023 09:00-0500 Systolic blood pressure 131 mm[Hg] Delonte Ball Other [facility] [employer] Other 07-25-2023 09:00-0400 Body height 177.8 cm Delonte Ball Other [employer] Other 07-25-2023 09:00-0400 Body mass index (BMI) [Ratio] 46.54 kg/m2 Delonte Ball Other [employer] Other 07-25-2023 09:00-0400 Body weight 147.15 kg Delonte Ball Other [employer] Other 07-25-2023 09:00-0400 Diastolic blood pressure 83 mm[Hg] Delonte Ball Other [employer] Other 07-25-2023 09:00-0400 Respiratory rate 16 /min Delonte Ball Other [employer] Other 07-25-2023 09:00-0400 Systolic blood pressure 130 mm[Hg] Delonte Ball Other [employer] Other 06-05-2023 11:25-0400 Body height 177.8 cm Bonny Raymundo Other [employer] Other 06-05-2023 11:25-0400 Body mass index (BMI) [Ratio] 46.48 kg/m2 Bonny Raymundo Other [employer] Other 06-05-2023 11:25-0400 Body temperature 98.2 [degF] Bonny Raymundo Other [employer] Other 06-05-2023 11:25-0400 Body weight 146.97 kg Bonny Raymundo Other [employer] Other 06-05-2023 11:25-0400 Diastolic blood pressure 61 mm[Hg] Bonny Raymundo Other [employer] Other 06-05-2023 11:25-0400 Respiratory rate 18 /min Bonny Raymundo Other [employer] Other 06-05-2023 11:25-0400 SaO2% (BldA) [Mass fraction] 97 % Bonny Raymundo Other [employer] Other 06-05-2023 11:25-0400 Systolic blood pressure 109 mm[Hg] Bonny Raymundo Other [employer] Other 02-14-2023 11:00-0400 Body height 177.8 cm Bonny Raymundo Other [employer] Other 02-14-2023 11:00-0400 Body mass index (BMI) [Ratio] 47.06 kg/m2 Bonny Raymundo Other [employer] Other 02-14-2023 11:00-0400 Body temperature 98 [degF] Bonny Raymundo Other [employer] Other 02-14-2023 11:00-0400 Body weight 148.78 kg Bonny Raymundo Other [employer] Other 02-14-2023 11:00-0400 Diastolic blood pressure 73 mm[Hg] Bonny Raymundo Other [employer] Other 02-14-2023 11:00-0400 Respiratory rate 18 /min Bonny Raymundo Other [employer] Other 02-14-2023 11:00-0400 SaO2% (BldA) [Mass fraction] 96 % Bonny Raymundo Other [employer] Other 02-14-2023 11:00-0400 Systolic blood pressure 130 mm[Hg] Bonny Raymundo Other [employer] Other 01-09-2023 12:30-0400 Body height 177.8 cm Delonte Ball Other [employer] Other 01-09-2023 12:30-0400 Body mass index (BMI) [Ratio] 48.18 kg/m2 Delonte Ball Other [employer] Other 01-09-2023 12:30-0400 Body weight 152.32 kg Delonte Ball Other [employer] Other 01-09-2023 12:30-0400 Diastolic blood pressure 78 mm[Hg] Delonte Ball Other [employer] Other 01-09-2023 12:30-0400 Respiratory rate 16 /min Delonte Ball Other [employer] Other 01-09-2023 12:30-0400 Systolic blood pressure 124 mm[Hg] Delonte Ball Other [employer] Other 11-01-2022 11:00-0500 Body height 177.8 cm Delonte Ball Other [employer] Other 11-01-2022 11:00-0500 Body mass index (BMI) [Ratio] 48.58 kg/m2 Delonte Ball Other [employer] Other 11-01-2022 11:00-0500 Body weight 153.59 kg Delonte Ball Other [employer] Other 11-01-2022 11:00-0500 Diastolic blood pressure 76 mm[Hg] Delonte Ball Other [employer] Other 11-01-2022 11:00-0500 Respiratory rate 16 /min Delonte Ball Other [facility] [employer] Other 11-01-2022 11:00-0500 Systolic blood pressure 122 mm[Hg] Delonte Ball Other [facility] [employer] Other 10-07-2022 10:20-0500 Diastolic blood pressure 68 mm[Hg] DO Delonte Ball Work Phone: [facility] 10-07-2022 10:20-0500 Heart rate 93 /min DO Delonte Ball Work Phone: [facility] 10-07-2022 10:20-0500 Respiratory rate 16 /min DO Delonte Ball Work Phone: [facility] 10-07-2022 10:20-0500 SaO2% (BldA) [Mass fraction] 98 % DO Delonte Ball Work Phone: [facility] 10-07-2022 10:20-0500 Systolic blood pressure 114 mm[Hg] DO Delonte Ball Work Phone: [facility] 10-07-2022 08:37-0500 Body height 176.53 cm DO Delonte Ball Work Phone: [facility] 10-07-2022 08:37-0500 Body temperature 98.7 [degF] DO Delonte Ball Work Phone: [facility] 10-07-2022 08:37-0500 Body weight 147.41 kg DO Delonet Ball Work Phone: [facility] 05-19-2022 12:40-0400 Body height 177.8 cm Bonny Raymundo Other [employer] Other 05-19-2022 12:40-0400 Body mass index (BMI) [Ratio] 45.91 kg/m2 Bonny Raymundo Other [employer] Other 05-19-2022 12:40-0400 Body temperature 100.6 [degF] Bonny Raymundo Other [employer] Other 05-19-2022 12:40-0400 Body weight 145.15 kg Bonny Raymundo Other [employer] Other 05-19-2022 12:40-0400 SaO2% (BldA) [Mass fraction] 98 % Bonny Raymundo Other [employer] Other 08-12-2021 12:30-0400 Body temperature 98.2 [degF] Bonny Ginty Other [employer] Other 08-12-2021 12:30-0400 SaO2% (BldA) [Mass fraction] 92 % Bonny Ginty Other [employer] Other Encounters Encounter Date Encounter Type Care Provider Facility Start: 07-27-2024 End: 07-27-2024 ambulatory [facility] Start: 07-16-2024 End: 07-16-2024 [facility] Work Phone: Start: 07-16-2024 End: 07-16-2024 Patient encounter procedure [facility] Work Phone: Start: 06-23-2024 Non-patient / Non-visit Former[facility] Work Phone: Start: 04-21-2024 End: 04-21-2024 ambulatory LACHO LACY [facility] Start: 03-24-2024 ambulatory [facility] Start: 03-24-2024 End: 03-24-2024 ambulatory [facility] Start: 03-12-2024 End: 03-12-2024 ambulatory [facility] Work Phone: Start: 03-12-2024 End: 03-12-2024 Patient encounter procedure [facility] Work Phone: Start: 01-20-2024 End: 01-20-[facility] Start: 12-18-2023 Non-patient / Non-visit [facility] Work Phone: Start: 12-17-2023 End: 12-17-2023 ambulatory KOLBY [facility] Start: 11-07-2023 End: 11-07-2023 ambulatory Delonte Tejeda Other [employer] Other Start: 11-07-2023 Encounter for genera l adult medical examination without abnormal findings Delonte Tejeda [facility] Start: 11-07-2023 Periodic preventive med est patient 40-64yrs Delonte Tejeda [facility] Start: 10-18-2023 End: 10-18-2023 ambulatory Bonny Raymundo Other [employer] Other Start: 10-18-2023 Telephone encounter Bonny Raymundo [facility] Start: 10-17-2023 Telephone encounter Delonte Tejeda [facility] Start: 10-17-2023 End: 10-17-2023 ambulatory DO Delonte Tejeda Work Phone: [employer] Other Start: 10-17-2023 End: 10-17-2023 Patient encounter procedure DO Delonte Tejeda Work Phone: [facility] Work Phone: Start: 10-09-2023 End: 10-09-2023 ambulatory Delonte Tejeda Other [employer] Other Start: 10-09-2023 Telephone encounter Delonte Tejeda [facility] Start: 07-25-2023 End: 07-25-2023 ambulatory Delonte Tejeda Other [employer] Other Start: 07-25-2023 Office outpatient vi sit 25 minutes Delonte Tejeda [facility] Start: 07-21-2023 End: 07-21-2023 ambulatory Bonny Raymundo Other [employer] Other Start: 07-21-2023 Telephone encounter Bonny Raymundo [facility] Start: 07-11-2023 End: 07-11-2023 ambulatory Delonte Tejeda Other [employer] Other Start: 07-11-2023 Telephone encounter Delonte Tejeda [facility] Start: 06-06-2023 End: 06-06-2023 ambulatory Delonte Tejeda Other [employer] Other Start: 06-06-2023 Telephone encounter [facility] Start: 06-05-2023 Office outpatient vi sit 15 minutes Bonny Raymundo [facility] Start: 06-05-2023 Telephone encounter Delonte Tejeda [facility] Start: 06-05-2023 End: 06-05-2023 ambulatory DO Delonte Tejeda Work Phone: [employer] Other Start: 06-05-2023 End: 06-05-2023 Patient encounter procedure DO Delonte Ball Work Phone: [facility] Work Phone: Start: 04-18-2023 End: 04-18-2023 ambulatory Delonte Tejeda Other [employer] Other Start: 04-18-2023 Telephone encounter Delonte Tejeda [facility] Start: 04-14-2023 End: 04-14-2023 ambulatory Delonte Tejeda Other [employer] Other Start: 04-14-2023 Telephone encounter Delonte Tejeda [facility] Start: 02-21-2023 End: 02-22-[address] DELONTE TEJEDA Facility:[facility] Start: 02-18-2023 End: 02-18-2023 ambulatory Delonte Tejeda Other [employer] Other Start: 02-18-2023 Telephone encounter Delonte Tejeda [facility] Start: 02-14-2023 End: 02-14-2023 ambulatory Bonny Raymundo Other [employer] Other Start: 02-14-2023 Office outpatient vi sit 25 minutes Bonny Zackary [facility] Start: 01-29-2023 End: 01-29-2023 ambulatory Delotne Tejeda Other [employer] Other Start: 01-29-2023 Telephone encounter Delonte Tejeda [facility] Start: 01-20-2023 End: 01-20-2023 ambulatory Delonte Tejeda Other [employer] Other Start: 01-20-2023 Telephone encounter Delonte Tejeda [facility] Start: 01-09-2023 End: 01-09-2023 ambulatory Delonte Tejeda Other [employer] Other Start: 01-09-2023 Office outpatient vi sit 25 minutes Delonte Tejeda [facility] Start: 12-24-2022 End: 12-24-2022 ambulatory Delonte Tejeda Other [employer] Other Start: 12-24-2022 Telephone encounter Delonte Tejeda [facility] Start: 12-06-2022 End: 12-07-2022 ambulatory NONE LISTED REQUEST Facility:[facility] Start: 11-29-2022 End: 11-30-[address] NONE LISTED REQUEST Facility:[facility] Start: 11-25-2022 End: 11-25-2022 ambulatory Delonte Tejeda Other [employer] Other Start: 11-25-2022 Telephone encounter Delonte Tejeda [facility] Start: 11-01-2022 End: 11-01-2022 ambulatory Delonte Tejeda Other [employer] Other Start: 11-01-2022 Encounter for genera l adult medical examination without abnormal findings Delonte Tejeda [facility] Start: 11-01-2022 Patient encounter procedure Delonte Tejeda [facility] Start: 11-01-2022 Periodic preventive med est patient 40-64yrs Delonte Nikhil [facility] Start: 10-18-2022 End: 10-18-2022 ambulatory Bonny Raymundo Other [employer] Other Start: 10-18-2022 Telephone encounter Bonny Raymundo [facility] Start: 10-07-2022 End: 10-07-2022 Admission to same day surgery center DO Delonte Tejeda Work Phone: [facility] Start: 10-07-2022 End: 10-07-2022 ambulatory DO Delonte Tejeda Work Phone: [facility] Work Phone: Start: 07-30-2022 End: 07-31-2022 ambulatory NONE LISTED REQUEST Facility:[facility] Start: 07-12-2022 ambulatory Malik MOLINA Facility : [facility] Start: 06-04-2022 End: 06-05-[address] DELONTE TEJEDA Facility:[facility] Start: 05-19-2022 End: 05-19-2022 ambulatory Bonny Raymundo Other [employer] Other Start: 05-19-2022 Office outpatient vi sit 25 minutes Bonny Raymundo [facility] Start: 05-01-2022 End: 05-02-[address] DELONTE TEJEDA Facility:[facility] Start: 03-15-2022 End: 03-16-[address] DELONTE TEJEDA Facility:[facility] Start: 03-14-2022 End: 03-15-2022 ambulatory NONE LISTED REQUEST Facility:[facility] Start: 02-26-2022 End: 02-27-[address] DELONTE TEJEDA Facility:[facility] Start: 09-07-2021 Adult health examination Bonny Raymundo Other [employer] Other Start: 08-12-2021 End: 08-12-2021 ambulatory Bonny Sr Other [employer] Other Start: 08-12-2021 Office outpatient vi sit 15 minutes Bonny Sr [facility] Procedures Date Procedure Procedure Detail Performing Clinician Start: 06-05-2023 Plain X-ray of left hip DO Delonte Nikhil Work Phone: Start: 02-21-[address] RAYA BERRY [employer] Comment on above: Performed By: #### P SASC #### [facility] [address] [place] [address] Dr. Rena Barone Start: 10-07-2022 Colonoscopy DO Anjali vance Nikhil Work Phone: Start: 02-26-[address] RAYA TEJEDA Comment on above: Performed By: #### L IPID, T4, TSH, CMP #### [facility] [address] [address] [address] Rena Barone Start: 05-20-2016 General examination of patient Bonny Raymundo Other Start: 01-04-2016 Screening for malign ant neoplasm of colon Bonny Raymundo Other Plan of Treatment Date Care Activity Detail Author Start: 10-07-2022 [facility] Patient Education [facility] Work Phone: [facility] Immunizations Immunization Date Immunization Notes Care Provider Fa cility 08-19-2022 COVID-19 Pfizer (bivalent) Bonny Raymundo Other [facility] 08-19-2022 COVID-19 Pfizer (Pediatric) Bonny Raymundo Other [facility] 08-19-2022 influenza virus vaccine, split virus (incl. purified surface antigen) Bonny Lynler Other [employer] Other 08-19-2022 influenza virus vaccine, unspecified formulation [facility] 08-19-2022 influenza, injectabl e, quadrivalent, preservative free Bonny Raymundo Other [facility] 02-09-2022 COVID-19 Pfizer Bonny Raymundo Other [facility] 02-09-2022 COVID-19 Vaccine Pfi zer - Documentation Purposes Only Bonny Raymundo Other [facility] 08-06-2021 COVID-19 Vaccine Pfi zer - Documentation Purposes Only Bonny Raymundo Other [facility] 08-06-2021 influenza virus vaccine, split virus (incl. purified surface antigen) Bonny Raymundo Other [employer] Other 08-06-2021 influenza virus vaccine, unspecified formulation [facility] 01-20-2021 COVID-19 mRNA, Comirnaty (Pfizer) DO [employer] Work Phone: [facility] 12-30-2020 COVID-19 mRNA, Comirnaty (Finicity) DO [employer] Work Phone: [facility] 07-26-2020 influenza virus vaccine, split virus (incl. purified surface antigen) Bonny Raymundo Other [employer] Other 07-26-2020 influenza virus vaccine, unspecified formulation [facility] 09-06-2017 tetanus and diphther ia toxoids, adsorbed, preservative free, for adult use (5 Lf of tetanus toxoid and 2 Lf of diphtheria toxoid) Bonny Raymundo Other [facility] Payers Date Payer Category Payer Unknown [id number] 2.16.8 [id number] 1960 Unknown [id number] 2.16.84 [id number] 1960 Unknown [id number] 2.16.84 [id number] 1959 Unknown [id number] 2.16.84 [id number] 1960 Self-pay [id number] 1960 Self-pay [id number] 1960 Unknown [id number] 2. [id number] Unknown [id number] 2.16.84 [id number] Unknown [id number] 2.16.84 [id number] Unknown [id number] 2.16.84 [id number] Unknown [id number] 2.16.84 [id number] Unknown [id number] 2.16.84 [id number] Unknown [id number] 2.16.84 [id number] Unknown [id number] 2.16.8 [id number] Unknown [id number] 2.16.8 [id number] Social History Date Type Detail Facility Sex Assigned At [employer] Other Start: 10-07-2022 End: 10-07-2022 Tobacco smoking status MTIS Current some day smoker [facility] Start: 1960 Sex Assigned At Male F [facility] Start: 12-18-2023 Tobacco smoking stat us MTIS Ex-smoker (finding) [facility] Goals Date Patient Goal Desired Activity /State Clinical Notes 08-12-2021 to 07-27-2024 Note Date & Type Note Facility 07-27-2024 Note [facility] Consult Note Reason for visit: persistent AF 07/27/24 Pt is here for a three month follow up. Pt denies chest pain, sob, dizziness. Patient underwent cardioversion on 03/24/2024 and was noted to have recurrence of atrial fibrillation when seen on 04/21/2024 by Mirella Lacy. He was still taking amiodarone at that time. Prior HPI: Salomón Rush is a 63 y.o. [...] any shortness of breath, chest pain, fatigue. [id number] at least 2 for hypertension, DM 2, [...] PSH: Past Surgical History: Procedure Laterality Date CARDIOVERSION COLONOSCOPY ESOPHAGOSCOPY / EGD KNEE ARTHROPLASTY Bilateral ROTATOR CUFF REPAIR SH: Social Determinants of Health Tobacco Use: Medium Risk (04/21/2024) Patient History Smoking Tobacco Use: Former Smokeless Tobacco Use: Never Passive Exposure: Not on file Alcohol Use: Not on file Financial Resource Strain: Not on file Food Insecurity: Not on file Transportation Needs: Not on file Physical Activity: Not on file Stress: Not on file Social Connections: Not on file Intimate Partner Violence: Unknown (12/11/2023) [place] Fear of Current or Ex-Partner: Not on file Emotionally Abused: Not on file Physically Abused: Not on file Sexually Abused: Not on file Physically or Sexually Abused: Not on file Depression: Not on file Housing Stability: Not on file Utilities: Not on file Allergies: No Known Allergies Weight: 146kg Visit Vitals BP 136/76 Pulse 72 Ht 1.778 m (5' 10 ) Wt (!) 146 kg (322 lb) SpO2 98% BMI 46.20 kg/m??? Smoking Status Former BSA 2.69 m??? Meds: Current Outpatient Medications on File Prior to Visit Medication Sig Dispense Refill allopurinol (Zyloprim) 300 mg tablet Take 150 mg by mouth in the morning. Taking 150 mg daily amiodarone (Pacerone) 200 mg tablet TAKE ONE [...] mg tablet Take 1 tablet by mouth every other day. Pt taking every other day insulin glargine (Lantus) 100 unit/mL injection vial [...] ROS: Review of Systems Cardiovascular: Positive for palpitations [...] Auscultation: clear, no wheezing, no rales, no (more content not included)... [facility] 04-21-2024 Note [id number]= 2 poin ts- HTN and DM Continue xarelto anticoagulation - denied any bleeding tendencies Rate controlled with Coreg [facility] 04-21-2024 Note Currently pt is cassy song well post Cardioversion Currently in A fib and rate controlled - Dr Fatima notified and d/w pt about possible A fib ablation [facility] 04-21-2024 Note [facility] CARDIOLOGY PROGR ESS NOTE [...] any shortness of breath, chest pain, fatigue. [id number] at least 2 for hypertension, DM 2, [...] 100 QT Interval 406 QTC CALCULATION(BAZETT) 447 R-[place] 49 T Wave [place] 38 Impression Atrial fibrillation Abnormal ECG No previous ECGs available Echo: 09/2023 tte Assessment/Plan: History (more content not included)... [facility] 04-21-2024 Note Patient here for fol low [...] All other systems reviewed and are negative. [facility] 03-24-2024 Note DIRECT CARDIOVERSION PROCEDURE NOTE Date: [...] any shortness of breath, chest pain, fatigue. [id number] at least 2 for hypertension, DM 2, [...] Plan: Continue anticoagulation and consider ablation. Felipe Fatima MD Cardiac Electrophysiology [facility] 03-24-2024 Note Patient: Salomón Troy Poc ock Procedure Information Date/Time: 03/24/24 0830 Procedure: Cardioversion - TO BE DONE IN March Location: [facility]ORDIN[facility] HOLDING ROOM / [facility] (Cath) Providers: Felipe Fatima MD Clinical information reviewed: Tobacco Allergies Meds Med Hx Surg Hx Fam Hx Soc Hx Physical Exam Airway Mallampati: II TM distance: >3 FB Neck ROM: full Cardiovascular Dental Pulmonary Abdominal Anesthesia Plan ASA 2 CSE Anesthetic plan and risks discussed with patient. Use of blood products discussed with patient who. Additional Equipment Requests [facility] 01-20-2024 Note [facility] Consult Note Reason [...] any shortness of breath, chest pain, fatigue. [id number] at least 2 for hypertension, DM 2, [...] on file Intimate Partner Violence: Unknown (12/11/2023) [place] Safety [place] Environment Fear of Current or [...] tender Musculoskeletal In (more content not included)... [facility] 12-17-2023 Note [facility] Consult Note Reason [...] stopped on flecainide given having breakthrough episodes. [id number] at least 2 for hypertension, DM 2, [...] on file Intimate Partner Violence: Unknown (12/11/2023) [place] Safety [place] Fear of Current or [...] Lids and Conju (more content not included)... [facility] 12-17-2023 Note New patient here to establish care. Ref from Dr. Tejeda for hx of afib. He used to see [facility] in [place], and hasn't seen them in a few [...] All other systems reviewed and are negative. 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 No bleeding complications Oct, Primary hypertension (ICD-10 - I10) This patient is instructed to consume a healthy, low-fat, low-salt diet. They are also encouraged to continue exercise to achieve/maintain a normal BMI. Oct, Obstructive sleep apnea (ICD-10 - G47.33) This patient is aware of the benefits associated with [employer]: With continued use, the patient reduces the risk for AL, CVA, HTN, cardiac dysrhythmias and sudden cardiac [...] for cerebrovascular and cardiovascular disease. 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 RVSP normal. [employer] Other 12-21-2023 Evaluation note* Encounter Date Diagnosis Assessment Notes Treatment Notes Treatment Clinical Notes Sep, Chronic atrial fibrillation (ICD-10 - I48.20) [employer] Other 10-06-2023 Evaluation note* Encounter Date Diagnosis [...] use, the patient reduces the risk for AL, CVA, HTN, cardiac dysrhythmias and sudden cardiac [...] or develop radicular symptoms, notify office Jul, custodial (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 (ICD-10 - Z79.4) [employer] Other 10-02-2023 Evaluation note* Encounter Date Diagnosis Assessment Notes Treatment Notes Treatment Clinical Notes Jul, Type 2 diabetes mellitus with hyperglycemia (ICD-10 - E11.65) [employer] Other 09-22-2023 Evaluation note* Encounter Date Diagnosis Assessment Notes Treatment Notes Treatment Clinical Notes Jun, Type 2 diabetes mellitus with hyperglycemia (ICD-10 - E11.65) [facility] Other 08-17-2023 Evaluation note* Encounter Date Diagnosis Assessment Notes Treatment Notes Treatment Clinical Notes 17 Aug, 2023 Left hip pain (ICD-10 - M25.552) XR [...] understanding and is agreeable with treatment plan [employer] Other 08-17-2023 Evaluation note* Encounter Date Diagnosis Assessment Notes Treatment Notes Treatment Clinical Notes May, Left hip pain (ICD-10 - M25.552) [employer] Other 05-02-2023 Evaluation note* Encounter Date Diagnosis Assessment Notes Treatment Notes Treatment Clinical Notes February, Type 2 diabetes mellitus with hyperglycemia, unspecified whether assisted insulin use (ICD-10 - E11.65) [employer] Other 04-28-2023 Evaluation note* Encounter Date Diagnosis [...] treatment plan. Patient left in stable condition. [employer] Other 04-12-2023 Evaluation note* Encounter Date Diagnosis Assessment Notes Treatment Notes Treatment Clinical Notes Jan, Type 2 diabetes mellitus with hyperglycemia, unspecified whether assisted insulin use (ICD-10 - E11.65) [employer] Other 04-03-2023 Evaluation note* Encounter Date Diagnosis Assessment Notes Treatment Notes Treatment Clinical Notes Jan, Type 2 diabetes mellitus with hyperglycemia (ICD-10 - E11.65) [employer] Other 03-23-2023 Evaluation note* Encounter Date Diagnosis [...] use, the patient reduces the risk for AL, CVA, HTN, cardiac dysrhythmias and sudden cardiac [...] are reviewed at the office visit. Dec, custodial (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 (ICD-10 - Z79.4) [...] Monitor for rash of HZV Stretching exercises [employer] Other 03-07-2023 Evaluation note* Encounter Date Diagnosis Assessment Notes Treatment Notes Treatment Clinical Notes Dec, Type 2 diabetes mellitus with hyperglycemia, without long-term current use of insulin (ICD-10 - E11.65) [employer] Other 02-06-2023 Evaluation note* Encounter Date Diagnosis Assessment Notes Treatment Notes Treatment Clinical Notes Nov, Type 2 diabetes mellitus with hyperglycemia, without long-term current use of insulin (ICD-10 - E11.65) [employer] Other 01-13-2023 Evaluation note* Encounter Date Diagnosis [...] use, the patient reduces the risk for AL, CVA, HTN, cardiac dysrhythmias and sudden cardiac [...] 2 diabetes mellitus with hyperglycemia, unspecified whether 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 Patient left in stable condition [facility] [employer] Other 10-24-2021 Evaluation note* Encounter Date Diagnosis [...] Patient care instructions given in writting by [facility] Home document [facility] [employer] Other Evaluation noteNo assessment information available [facility] Work Phone: Evaluation noteNo InformationNortGrand View Health [employer] Other Evaluation note* Diagnosis Onset Date Resolution Status Atrial fibrillation acute Chronic venous insufficiency of lower extremity acute Hypercholesterolemia acute Hypertension acute ELENITA (obstructive sleep apnea) acute Type 2 diabetes mellitus with hyperglycemia acute [facility] Work Phone: Evaluation note* Diagnosis Onset Date Resolution Status Anemia acute Atrial fibrillation acute Chronic venous insufficiency of lower extremity acute Hypercholesterolemia acute Hypertension acute Obesity acute ELENITA (obstructive sleep apnea) acute Type 2 diabetes mellitus with hyperglycemia acute [facility] Work Phone: History and physical note Author Deon Greene [facility] October 07, 2022 9:27am Note Date/Time October 07, 2022 9:27am [facility] [address] [place] [address] Gastroenterology H&P Signed Patient: Salomón Rush MR#: [id number] : 1960 Acct:[id number] Age/Sex: 61 / M Adm Date: 2 Loc: Room: Type: [facility] Attending Dr: Deon Greene MD Copies to: [...] <Electronically signed by Deon Greene MD> 10/07/22926 [facility] Work Phone: Hisrdwr general Narrative - Reported* Type Description Date Medical History hypertension Medical History Diabetes Medical History a. 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 - Office number [phone][facility] Work Phone: Reason for referral (narrative)* Reason *FU 11/28 Referral for persistent atrial fibrillation. Diagnosis 1 Chronic atrial fibri llation (I48.20) Referral Organization [facility] Referring Provider First Name Delonte Referring Provider Last Name Nikhil Referring Provider Specialty Internal Me dicine Referred Organization [facility] Referred Provider Felipe Fatima Referred Address [address] [place], [place],[address] Referred Provider Specialty Cardiology Referral Priority Routine [...] faxed Clinical Notes Include recent Echo f: [id number] [employer] Other Summary Purpose Family History No Family [...] neoplasm Unknown Heart disease Unknown sister Unknown Relationship Condition Age at Onset Recorded Date/T cristy father Malignant neoplasm of esophagus Unknown mother Lymphoma Unknown sister Rheumatoid arthritis Unknown Liver cirrhosis seco ndary to nonalcoholic steatohepatitis (ESPOSITO) Unknown Diabetes mellitus Unknown father Malignant neoplasm Unknown Unknown mother Malignant neoplasm Unknown Heart disease Unknown sister [...] apnea) Type 2 diabetes mellitus with hyperglycemia Chief Complaint 4 month f/u Reason for Visit Anemia Atrial fibrillation Chronic venous insufficiency of lower extremity Hypercholesterolemia Hypertension Obesity ELENITA (obstructive sleep apnea) Type 2 diabetes mellitus with hyperglycemia Additional Source Comments REASON FOR VISIT (unrecogniz ed section and content) #15 BLACK JEEP, HIARRHEA, NA USEA, NASAL CONGESTION [id number] JEEP, COUGH, SORE THROAT, POSITIVE HOME TESTNo InformationWELLNESSNo InformationDifferent MedicationOzempic increasePossible Pulled MusclerefillNo InformationOzempicchest/head coldmed refillHRHRLeft hip painWants on TodayNo InformationOzempicNo Information3 month Follow upPrescription ReminderEKG resultsNo InformationWELLNESSWELLNESS (unrecognized sect ion and content) No Status Records FoundNo Status Records FoundNo Status Records FoundNo Status Records Found INFORMATION SOURCE (unrecogn ized section and content) DATE CREATED AUTHOR 07/22/2022 Luis Daniel PT [facility] DATE CREATED AUTHOR AUTHOR'S ORGANIZ ATION 02/21/2023 [facility] DATE CREATED AUTHOR AUTHOR'S ORGANIZ ATION 10/30/2023 [facility] DATE CREATED AUTHOR AUTHOR'S ORGANIZ ATION 07/28/2024 [facility] Care Teams (unrecognized sec tion and content) Team Status: Active Member Role Status Dates Delonte Tejeda DO Primary Care Provider Active Team Status: Active Member Role Status Dates Delonte Tejeda DO [...] Care Provide r, Attending Provider Active Start: June 23, 2024 Team Status: Inactive Member Role Status Dates Delonte Tejeda , DO Primary Care Provide r, Attending Provider Active Start: July 16, 2024 End: July 16, 2024 Goals (unrecognized section and content) Goals [...] BE BASED ON THE PRIMARY CLINICAL RECORDS. [employer] provides no warranty or guarantee of the accuracy or completeness of information in this document.
== END 2024-07-29 08:50 | disposition home or self-care (01) ==
LOC: US 08:49
PROVIDERS: PCP Internal Medicine; Visit Provider Internal Medicine
DX: N17.9 Acute kidney failure, unspecified (principal); N20.0 Calculus of kidney
CPT/HCPCS: 76775

== ENCOUNTER 2024-08-11 08:40 | Outpatient (OUT) | payer OTHER, SELFPAY ==
--- NOTE | 2024-08-11 09:00 | CA_ITS ---
Patient Name: DALE NUNN MR#: [id number] : 1960 Exam Date: 08/11/2024 Ordering Doctor: ALLIE FERNANDEZ ECHOCARDIOGRAM REPORT PROCEDURE: CA ECHO DOPPLER COMPLETE INDICATIONS: Atrial fibrillation, hypertension, smoker, diabetes COMPARISON: None. DESCRIPTION: COMPLETE ECHOCARDIOGRAM Real-time transthoracic echocardiography with 2D, M-mode, spectral and color flow Doppler performed. QUALITY: Technical quality was adequate. LEFT VENTRICLE: Normal chamber size. Mild concentric left ventricular hypertrophy. Normal systolic function. LV EF: Normal left ventricular ejection fraction, (>55%). DIASTOLIC: Unable to assess diastolic function. ATRIAL SEPTUM: Visually appears intact. There is evidence of lipomatous hypertrophy of the septum. A bright echodensity is seen projecting from the septum into the right atrial cavity. LEFT ATRIUM: Moderate dilatation. RIGHT ATRIUM: Moderate dilatation. RIGHT VENTRICLE: Mild dilatation. Normal right ventricular systolic function. TRICUSPID VALVE: Normal mobility and thickness. No stenosis with no regurgitation. Unable to assess right-sided pressures due to lack of measurable tricuspid regurgitation. MITRAL VALVE: Normal mobility and thickness. No evidence of mitral valve stenosis. Mild mitral annular calcification. No mitral regurgitation. AORTIC VALVE: Normal trileaflet appearance. Mildly calcified aortic valve. Mildly diminished mobility. No evidence of aortic valve stenosis. No aortic regurgitation. AORTIC ROOT: Normal diameter and appearance. Ascending aorta is normal in size. PULMONIC VALVE: Normal thickness and mobility. No stenosis. Trivial regurgitation. PERICARDIUM: No evidence of pericardial effusion. IVC: IVC is dilated (2.5 cm) with no collapse. PLEURA: CONCLUSION: 1. Mild concentric left regular hypertrophy with normal systolic function. Estimated LVEF is 55 to 60%. 2. Mildly dilated right ventricle with normal systolic function. 3. Moderate biatrial dilatation. 4. No significant valvular dysfunction. 5. There is evidence of lipomatous hypertrophy of the septum. A bright echodensity is seen projecting from the septum into the right atrial cavity. 6. Further imaging with a either transesophageal echocardiogram or cardiac CTA or MRI is recommended for better characterization. Adult Echocardiography Procedure Report Left Ventricle LVEDD (3.7 - 5.6 cm): 4.78 cm LVESD (2.2 - 4.0 cm): 3.05 cm LVIVS thickness (0.6 - 1.2 cm): 1.17 cm LVPW thickness (0.5 - 1.0 cm): 1.10 cm LVOT Max Gradient: 1.75 mm[Hg], 1.40 mm[Hg] LVOT Area (cm2): 0.63 m/s Peak Velocity (LVOT): 0.66 m/s, 0.59 m/s LVOT Diameter 2.13 cm Left Atrium LA Volume Index (2D A2C): 43.40 ml/m2 Left Atrium Systolic Dimension: 4.26 cm Mitral Valve Mitral Valve E-Wave Peak Velocity: 1.12 m/s Right Ventricle Aorta AO Root Diam: 3.46 cm Ascending Ao Diam: 3.11 cm Aortic Valve AoV Area (Peak Thomas): 1.99 cm2, 2.23 cm2, 1.78 cm2 Peak Velocity(Antegrade Flow): 1.06 m/s, 1.19 m/s Peak Gradient(Antegrade Flow): 4.47 mm[Hg], 5.62 mm[Hg] Tricuspid Valve Pulmonic Valve Peak Velocity: 0.96 m/s Peak Gradient: 3.82 mm[Hg], 3.55 mm[Hg] Right Atrium Right Atrium Systolic Pressure: 89.04 ml, 89.04 ml Dictated by: Donal Sainz M.D. on 08/11/2024 at 12:55 Approved by: Donal Sainz M.D. on 08/11/2024 at 13:00
== END 2024-08-11 08:41 | disposition home or self-care (01) ==
LOC: CARD 08:41
PROVIDERS: PCP Internal Medicine; Visit Provider Internal Medicine Cardiovascular Disease
DX: R94.31 Abnormal electrocardiogram [ECG] [EKG] (principal)
CPT/HCPCS: 93306

== ENCOUNTER 2024-08-13 09:23 | Outpatient (OUT) | payer OTHER, SELFPAY ==
[2024-08-13 09:48] LABS: Basophils Percent Auto 0.6 % (0.2-2.0); Eosinophils Absolute Auto 0.1 10^3/uL (0.0-0.7); Eosinophils Percent Auto 1.5 % (0.9-7.0); Hematocrit 37.9 % (42.0-54.0); Hemoglobin 12.8 g/dL (14.0-18.0); Immature Granulocytes Abs Auto 0.02 10^3/uL (0.00-0.03); Immature Granulocytes Pct Auto 0.3 % (0.0-0.5); Lymphocytes Absolute Auto 1.1 10^3/uL (1.2-3.8); Lymphocytes Percent Auto 17.1 % (20.5-60.0); Mean Corpuscular HGB Conc 33.8 g/dL (29.9-35.2); Mean Corpuscular Hemoglobin 34.9 pg (25.9-34.0); Mean Corpuscular Volume 103.3 fL (80.0-94.0); Mean Platelet Volume 11.5 fL (9.5-13.5); Monocytes Absolute Auto 0.7 10^3/uL (0.3-0.8); Monocytes Percent Auto 10.2 % (1.7-12.0); Neutrophils Absolute Auto 4.7 10^3/uL (1.4-6.5); Neutrophils Percent Auto 70.3 % (43.0-75.0); Platelet Count 141 10^3/uL (150-450); Red Blood Count 3.67 10^6/uL (4.70-6.10); Red Cell Distribution Width 12.7 % (11.0-15.0); White Blood Count 6.7 10^3/uL (4.0-11.0)
[2024-08-13 10:09] LABS: BUN Creatinine Ratio 17.9; Carbon Dioxide 26.9 mmol/L (21.0-32.0); Chloride 105 mmol/L (98-107); Estimated GFR (African America >60 (>=60 mL/min/1.73m^2); Estimated GFR (Non-African Ame 51 (>=60 mL/min/1.73m^2); Glucose 151 mg/dL (74-106); Potassium 4.9 mmol/L (3.5-5.1); Sodium 141 mmol/L (136-145)
== END 2024-08-13 09:24 | disposition home or self-care (01) ==
LOC: LAB 09:23
PROVIDERS: PCP Internal Medicine; Visit Provider Internal Medicine Cardiovascular Disease
DX: N18.9 Chronic kidney disease, unspecified (principal); I48.0 Paroxysmal atrial fibrillation
CPT/HCPCS: 36415; 80048; 82570; 84156; 85025

== ENCOUNTER 2024-08-13 09:25 | Outpatient (OUT) | payer OTHER, SELFPAY ==
--- OUTSIDE RECORDS SUMMARY | 2024-08-13 09:30 | XMS_ITS | CCD ---
Author Organization [facility] Care Team Providers Care Janitorial Manager Name Role Phone Remberto Bonny Unavailable Bonny Raymundo Unavailable Malik MOLINA Attending Unavailable BALL PROVIDER, DELONTE Referring Unavaila ble DO Delonte Tejeda Primary Care Provider [phone] MD Deon Greene Attending Provider Delonte Tejeda Unavailable NIKHIL, DR BEST Consulting [...] Delonte Tejeda Primary Care Unavailable FELIPE FATIMA Attending Unavailable LACHO LACY Attending Unavailable FELIPE FATIMA Referring Unavailable FELIPE FATIMA Referring Unavailable FELIPE FATIMA Admitting Unavailable FELIPE FATIMA Attending Unavailable REBECCA, FELIPE Attending Unavailable KOLBY AMBROCIO Attending Unavailable Medications Current [...] sources) Long-term current use of insulin; 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] Episodic Other and [...] Onset: 01-14-2018 Episodic Other aftercare (6 sources) alf (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; Translations: [alf (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] Onset: 12-16-2023 Episodic [...] Test Name Value Interpretation Reference Range Facility Prep for Procedureon 024 Prep for Procedure [id number] Rosalind Rush 1960 Provider Department Center 07/28/2024 [facility] [place] [facility] Family History Problem Relation Age of Onset Cancer Mother Heart disease Mother Cancer Father Family Status - Relation Status Age at Mother Father [facility] Office Visiton 07-27-2024 Follow-up visit [id number] Rosalind Rush [place] 1960 [facility] Provider Department Center 07/27/2024 FELIPE COWAN DUDLEY Pérez Family History Problem Relation Age of Onset Cancer Mother Heart disease Mother Cancer Father Family Status - Relation Status Age at Mother Father Level of Service:55030 AL OFFICE/OUTPATIENT ESTABLISHED LOW MDM 20 MIN [facility] Glucose mean value [Mass/vol ume] in Blood Estimated from glycated hemoglobinon 06-23-2024 Average glucose Estimated from glycated hemoglobin (Bld) [Mass/Vol] 114 mg/dL [facility] Laboratory - Hematology and Cell countson 06-23-2024 HbA1c (Bld) [Mass fraction] 5.6 % 4.5-6.2 [facility] Comment on above: ADA RECOMMENDED LIMI T 4.0 - 6.0ADA THERAPEUTIC TARGET < 7.0ACTION SUGGESTED> 7.0 Office Visiton 04-21-2024 Follow-up visit [id number] Rosalind Rush 1960 [facility] Provider Department Center 04/21/2024 LACHO JORDAN DUDLEY Pérez Family History Problem Relation Age of Onset Cancer Mother Heart disease Mother Cancer Father Family Status - Relation Status Age at Mother Father Level of Service:42199 AL POSTOP FOLLOW UP VISIT RELATED TO ORIGINAL PX [facility] HPon 03-24-2024 [facility] Electrophysiology Consult Note Reason for visit: [...] any shortness of breath, chest pain, fatigue. [id number] at least 2 for hypertension, DM 2, [...] on file Intimate Partner Violence: Unknown (12/11/2023) [place] [facility] Fear of Current or [...] swelling Neurologic Gait (more content not included)... [facility] NURSNOTEon 03-24-2024 NURSNOTE RN educated pt on d/ c instructions. RN encouraged pt to voice any questions or concerns. Pt verbalizes no questions or concerns at this time. Pt was wheeled off of unit with all of belongings. [facility] Orders Onlyon 03-16-2024 Orders Only [id number] Rosalind Rush n C 1960 M Date Provider Department Center 03/16/2024 CONNIE BYRNE [facility] [place] [facility] Family History Problem Relation Age of Onset Cancer Mother Heart disease Mother Cancer Father Family Status - Relation Status Age at Mother Father [facility] Office Visiton 01-20-2024 Follow-up visit [id number] Roaslind Rush n C 1960 M Date Provider Department Center 01/20/2024 FELIPE COWAN DUDLEY [facility] Family History Problem Relation Age of Onset Cancer Mother Heart disease Mother Cancer Father Family Status - Relation Status Age at Mother Father Level of Service:90279 AL OFFICE/OUTPATIENT NEW MODERATE MDM 45 MINUTES Reason for Visit and Comments: Follow-up [[id number]] [facility] Orders Onlyon 01-20-2024 Orders Only [id number] Rosalind Rush n C 1960 Date Provider Department Center 01/20/2024 [facility] Family History Problem Relation Age of Onset Cancer Mother Heart disease Mother Cancer Father Family Status - Relation Status Age at Mother Father [facility] 12-17-2023 28 Addended by: BETSY PABLO on: 12/17/2023 10:20 AM Modules accepted: Orders [facility] Office Visiton 12-17-2023 Follow-up visit [id number] Rosalind Rush n C 1960 M Date Provider Department Center 12/17/2023 1596-KOLBY AMBROCIO BH DUDLEY [facility] Family History Problem Relation Age of Onset Cancer Mother Heart disease Mother Cancer Father Family Status - Relation Status Age at Mother Father Level of Service:29212 AL OFFICE/OUTPATIENT NEW MODERATE MDM 45 MINUTES Normal [facility] ECH echo transthoracicon [facility] echo transthoracic [facility] Main [place] [address] [place], [place] [id number] Echocardiogram Signed Patient: Salomón Rush MR#: [id number] 90 : 1960 Acct:[id number] Age/Sex: 62 / M ADM Date: 10/17/23 Loc: Room: Type: [facility] Attending Dr: Delonte Tejeda DO Ordering Provider: Delonte Tejeda DO Date of Service: 10/17/23/ [facility] echo transthoracic: Chronic Afib. SOB. Copies to: [...] By: Ortiz Singletary MD 10/17/23 1304 Normal [facility] XR hip LT min 2V(w/wo pelvis )*on 06-05-2023 XR hip LT min 2V(w/wo pelvis)* [place] [address] XRay Report Signed Patient: Salomón Rush MR#: [id number] 90 : 1960 Acct:[id number] Age/Sex: 62 / M ADM Date: 06/05/23 Loc: XDUCLY Room: Type: [facility] Attending Dr: Bonny Raymundo APRN Copies [...] Calvin Thibodeaux M.D.06/05/2023 12:25 PM Dictation Location: [place] [address] Transcribed By: [facility] 06/05/23 1225 Dictated By: Calvin Thibodeaux II, MD 06/05/23 1223 Signed By: 06/05/23 1225 Normal [facility] XR hip LT min 2V(w/wo pelvis)* [facility] [employer] Other XR hip LT min 2V(w/wo pelvis)* [facility] [place] [facility] Other XR hip LT min 2V(w/wo pelvis)* [address] [place] [address] [employer] Other XR hip LT min 2V(w/wo pelvis)* [place] [address] [employer] Other XR hip LT min 2V(w/wo pelvis)* XRay Report [facility] [employer] Other XR hip LT min 2V(w/wo pelvis)* Signed [employer] Other XR hip LT min 2V(w/wo pelvis)* Patient: Salomón Rush MR#: [id number] [employer] Other XR hip LT min 2V(w/wo pelvis)* 90 [employer] [place] Other XR hip LT min 2V(w/wo pelvis)* : 1960 Acct:[id number] [employer] Other XR hip LT min 2V(w/wo pelvis)* Age/Sex: 62 / M ADM Date: 06/05/23 [employer] Other XR hip LT min 2V(w/wo pelvis)* Loc: XDUCLY Room: Type: [facility] [employer] Other XR hip LT min 2V(w/wo pelvis)* Attending Dr: Bonny Raymundo HEADWAITRESS [employer] Other XR hip LT min 2V(w/wo pelvis)* Copies to: Bonny Raymundo HEADWAITRESS [employer] Other XR hip LT min 2V(w/wo pelvis)* Ordering Provider: Bonny Raymundo APRN [employer] Other XR hip LT min 2V(w/wo pelvis)* Date of Service: 06/05/23 [employer] Other XR hip LT min 2V(w/wo pelvis)* XR/XR hip LT min 2V(w/wo pelvis)*: Left hip pain [employer] Other XR hip LT min 2V(w/wo pelvis)* XR hip LT min 2V(w/wo pelvis)* 06/05/2023 11:57 AM [employer] Other XR hip LT min 2V(w/wo pelvis)* SIGNS AND SYMPTOMS: Left hip pain [employer] [place] Other XR hip LT min 2V(w/wo pelvis)* PROTOCOL: Frontal radiograph of the pelvis with frontal and frog-leg views of the left hip [employer] [place] Other XR hip LT min 2V(w/wo pelvis)* COMPARISON: None [employer] Other XR hip LT min 2V(w/wo pelvis)* FINDINGS: [employer] [place] Other XR hip LT min 2V(w/wo pelvis)* There is mild narrowing of the joint spaces of the hips. Degenerative changes are noted in the [employer] Other XR hip LT min 2V(w/wo pelvis)* lumbar spine and sacroiliac joints. The bony ring of the pelvis is intact. There is no fracture or [employer] [place] Other XR hip LT min 2V(w/wo pelvis)* dislocation. Vascular calcifications are present. [employer] [place] Other XR hip LT min 2V(w/wo pelvis)* XR/XR hip LT min 2V(w/wo pelvis)* [employer] [place] Other XR hip LT min 2V(w/wo pelvis)* IMPRESSION: [employer] Other XR hip LT min 2V(w/wo pelvis)* No fracture or dislocation. [employer] [place] Other XR hip LT min 2V(w/wo pelvis)* Degenerative changes are noted in the lumbar spine and sacroiliac joints. [employer] Other XR hip LT min 2V(w/wo pelvis)* Impression dictated by: Calvin Thibodeaux M.D.06/05/2023 12:25 PM [employer] Other XR hip LT min 2V(w/wo pelvis)* Dictation Location: [facility]- [employer] Other XR hip LT min 2V(w/wo pelvis)* Transcribed By: PWS 06/05/23 1225 [employer] [place] Other XR hip LT min 2V(w/wo pelvis)* Dictated By: Calvin Thibodeaux II, MD 06/05/23 [facility] [employer] [place] Other XR hip LT min 2V(w/wo pelvis)* Signed By: [employer] Other XR hip LT min 2V(w/wo pelvis)* 06/05/23 [facility] [employer] [place] Other CBC AUTO DIFFon 02-21-2023 BASO # 0.1 103/ul Normal 0.0-0.1 [facility] Comment on above: Performed By: #### L IPID, T4, TSH, CMP #### [facility] [address] [place] [address] Dr. Rena Barone Basophils/100 WBC (Bld) 0.4 % Normal 0.2-2.0 [facility] Comment on above: Performed By: #### L IPID, T4, TSH, CMP #### [facility] [address] [place] [address] Dr. Rena Barone EO # 0.4 103/ul Normal 0.0-0.7 [facility] Comment on above: Performed By: #### L IPID, T4, TSH, CMP #### [facility] [address] [place] [address] Dr. Rena Barone Eosinophils/100 WBC (Bld) 3.1 % Normal 0.9-7.0 [facility] Comment on above: Performed By: #### L IPID, T4, TSH, CMP #### [facility] [address] [place] [address] Dr. Rena Barone Erythrocyte distribution width (RBC) [Ratio] 12.5 % Normal 11.0-15.0 [facility] Comment on above: Performed By: #### L IPID, T4, TSH, CMP #### [facility] [address] [place] [address] Dr. Rena Barone Hematocrit (Bld) [Volume fraction] 38.9 % Critically low 42.0-54.0 [facility] Comment on above: Performed By: #### L IPID, T4, TSH, CMP #### [facility] [address] [place] [address] Dr. Rena Barone Hemoglobin (Bld) [Mass/Vol] 13.2 g/dL Critically low 14.0-18.0 [facility] Comment on above: Performed By: #### L IPID, T4, TSH, CMP #### [facility] [address] [place] [address] Dr. Rena Barone IG # 0.05 10e3/ul Critically high 0.00-0.03 [facility] Comment on above: Performed By: #### L IPID, T4, TSH, CMP #### [facility] [address] [place] [address] Dr. Rena Barone IG % 0.4 % Normal 0.0-0.5 [facility] Comment on above: Performed By: #### L IPID, T4, TSH, CMP #### [facility] [address] [place] [address] Dr. Rena Barone LYMPH # 3.2 103/ul Normal 1.2-3.8 [facility] Comment on above: Performed By: #### L IPID, T4, TSH, CMP #### [facility] [address] [place] [address] Dr. Rena Barone Lymphocytes/100 WBC (Bld) 28.6 % Normal 20.5-60.0 [facility] Comment on above: Performed By: #### L IPID, T4, TSH, CMP #### [facility] [address] [place] [address] Dr. Rena Barone MANUAL DIFF REQ NO Normal [facility] Comment on above: Performed By: #### L IPID, T4, TSH, CMP #### [facility] [address] [place] [address] Dr. Rena Barone MCH (RBC) [Entitic mass] 33.7 pg Normal 25.9-34.0 [facility] Comment on above: Performed By: #### L IPID, T4, TSH, CMP #### [facility] [address] [place] [address] Dr. Rena Barone MCHC (RBC) [Mass/Vol] 33.9 g/dL Normal 29.9-35.2 [facility] Comment on above: Performed By: #### L IPID, T4, TSH, CMP #### [facility] [address] [place] [address] Dr. Rena Barone MCV (RBC) [Entitic vol] 99.2 fL Critically high 80.0-94.0 [facility] Comment on above: Performed By: #### L IPID, T4, TSH, CMP #### [facility] [address] [place] [address] Dr. Rena Barone MONO # 1.0 103/ul Critically high 0.3-0.8 [facility] Comment on above: Performed By: #### L IPID, T4, TSH, CMP #### [facility] [address] [place] [address] Dr. Rena Barone Monocytes/100 WBC (Bld) 8.8 % Normal 1.7-12.0 [facility] Comment on above: Performed By: #### L IPID, T4, TSH, CMP #### [facility] [address] [place] [address] Dr. Rena Barone NEUT # 6.6 103/ul Critically high 1.4-6.5 [facility] Comment on above: Performed By: #### L IPID, T4, TSH, CMP #### [facility] [address] [place] [address] Dr. Rena Barone Neutrophils/100 WBC (Bld) 58.7 % Normal 43.0-75.0 [facility] Comment on above: Performed By: #### L IPID, T4, TSH, CMP #### [facility] [address] [place] [address] Dr. Rena Barone Platelet mean volume (Bld) [Entitic vol] 11.2 fL Normal 9.5-13.5 [facility] Comment on above: Performed By: #### L IPID, T4, TSH, CMP #### [facility] [address] [place] [address] [address] Rena Barone PLT 202 103/ul Normal 150-450 [facility] Comment on above: Performed By: #### L IPID, T4, TSH, CMP #### [facility] [address] [place] [address] [address] Rena Barone RBC 3.92 106/ul Critically low 4.70-6.10 [facility] Comment on above: Performed By: #### L IPID, T4, TSH, CMP #### [facility] [address] [place] [address] [address] Rena Barone WBC 11.3 103/ul Critically high 4.0-11.0 [facility] Comment on above: Performed By: #### L IPID, T4, TSH, CMP #### [facility] [address] [place] [address] [address] Rena Barone LIPID PROFILEon 02-21-2023 CHOL-HDL RATIO NORM SEE BELOW Normal [facility] Comment on above: Result Comment: 3.3 - 4.4 LOW RISK 4.4 - 7.1 AVERAGE RISK 7.1 - 11.0 MODERATE RISK >11.0 HIGH RISK Performed By: #### L IPID, T4, TSH, CMP #### [facility] [address] [place] [address] [address] Rena Barone Cholesterol [Mass/Vol] 127 mg/dL Normal <=200 [facility] Comment on above: Performed By: #### L IPID, T4, TSH, CMP #### [facility] [address] [place] [address] [address] Rena Barone Cholesterol in HDL [Mass/Vol] 24 mg/dL Critically low 40-60 [facility] Comment on above: Performed By: #### L IPID, T4, TSH, CMP #### [facility] [address] [place] [address] [address] Rena Barone Cholesterol in LDL [Mass/Vol] 58.4 mg/dL Normal [facility] Comment on above: Performed By: #### L IPID, T4, TSH, CMP #### [facility] [address] [place] [address] [address] Rena Barone Cholesterol.total/C holesterol in HDL [Mass ratio] 5.3 {ratio} Normal [facility] Comment on above: Performed By: #### L IPID, T4, TSH, CMP #### [facility] [address] [place] [address] [address] Rena Barone HDL NORMAL > or = 60 mg/dl - LO W CARDIOVASCULAR RISK <40 mg/dl - HIGH CARDIOVASCULAR RISK Normal [facility] Comment on above: Performed By: #### L IPID, T4, TSH, CMP #### [facility] [address] [place] [address] [address] Rena Barone LDL CALC NORMAL SEE BELOW Normal [facility] Comment on above: Result Comment: <100 mg/dl OPTIMAL 100 - 129 mg/dl NEAR OR ABOVE OPTIMAL 130 - 159 mg/dl BORDERLINE HIGH 160 - 189 mg/dl HIGH >190 mg/dl VERY HIGH Performed By: #### L IPID, T4, TSH, CMP #### [facility] [address] [place] [address] [address] Rena Barone Triglyceride [Mass/Vol] 223 mg/dL Critically high <=150 [facility] Comment on above: Performed By: #### L IPID, T4, TSH, CMP #### [facility] [address] [place] [address] [address] Rena Barone VLDL CALC 44.6 mg/dL Normal [facility] Comment on above: Performed By: #### L IPID, T4, TSH, CMP #### [facility] [address] [place] [address] [address] Rena Barone PROF 14(COMP METB)on 023 Albumin [Mass/Vol] 3.8 g/dL Normal 3.4-5.0 [facility] Comment on above: Performed By: #### L IPID, T4, TSH, CMP #### [facility] [address] [place] [address] [address] Rena Barone Albumin/Globulin [Mass ratio] 0.9 {ratio} Normal [facility] Comment on above: Performed By: #### L IPID, T4, TSH, CMP #### [facility] [address] [place] [address] [address] Rena Barone ALP [Catalytic activity/Vol] 99 U/L Normal 46-116 [facility] Comment on above: Performed By: #### L IPID, T4, TSH, CMP #### [facility] [address] [place] [address] Dr. Rena Barone ALT [Catalytic activity/Vol] 31 U/L Normal 16-63 [facility] Comment on above: Performed By: #### L IPID, T4, TSH, CMP #### [facility] [address] [place] [address] Dr. Rena Barone Anion gap [Moles/Vol] 10.3 mmol/L Normal [facility] Comment on above: Performed By: #### L IPID, T4, TSH, CMP #### [facility] [address] [place] [address] Dr. Rena Barone AST [Catalytic activity/Vol] 23 U/L Normal 15-37 [facility] Comment on above: Performed By: #### L IPID, T4, TSH, CMP #### [facility] [address] [place] [address] Dr. Rena Barone Bilirubin [Mass/Vol] 0.5 mg/dL Normal 0.2-1.0 [facility] Comment on above: Performed By: #### L IPID, T4, TSH, CMP #### [facility] [address] [place] [address] Dr. Rena Barone Calcium [Mass/Vol] 9.3 mg/dL Normal 8.5-10.1 [facility] Comment on above: Performed By: #### L IPID, T4, TSH, CMP #### [facility] [address] [place] [address] Dr. Rena Barone Chloride [Moles/Vol] 100 mmol/L Normal 98-107 [facility] Comment on above: Performed By: #### L IPID, T4, TSH, CMP #### [facility] [address] [place] [address] [address] Rena Barone CO2 [Moles/Vol] 25.9 mmol/L Normal 21.0-32.0 [facility] Comment on above: Performed By: #### L IPID, T4, TSH, CMP #### [facility] [address] [place] [address] [address] Rena Barone Creatinine [Mass/Vol] 1.34 mg/dL Critically high 0.70-1.30 [facility] Comment on above: Performed By: #### L IPID, T4, TSH, CMP #### [facility] [address] [place] [address] Dr. Rena Barone EGFR-AF CONGOLESE >60 Normal >=60 [facility] Comment on above: Performed By: #### L IPID, T4, TSH, CMP #### [facility] [address] [place] [address] Dr. Rena Barone EGFR-NON AF CONGOLESE 54 mL/min/1.73m2 Critically low >=60 [facility] Comment on above: Performed By: #### L IPID, T4, TSH, CMP #### [facility] [address] [place] [address] Dr. Rena Barone Globulin (S) [Mass/Vol] 4.1 g/dL Normal [facility] Comment on above: Performed By: #### L IPID, T4, TSH, CMP #### [facility] [address] [place] [address] Dr. Rena Barone Glucose [Mass/Vol] 108 mg/dL Critically high 74-106 [facility] Comment on above: Performed By: #### L IPID, T4, TSH, CMP #### [facility] [address] [place] [address] Dr. Rena Barone Potassium [Moles/Vol] 4.2 mmol/L Normal 3.5-5.1 [facility] Comment on above: Performed By: #### L IPID, T4, TSH, CMP #### [facility] [address] [place] [address] [address] Rena Barone Protein [Mass/Vol] 7.9 g/dL Normal 6.4-8.2 [facility] Comment on above: Performed By: #### L IPID, T4, TSH, CMP #### [facility] [address] [place] [address] Dr. Rena Barone Sodium [Moles/Vol] 132 mmol/L Critically low 136-145 [facility] Comment on above: Performed By: #### L IPID, T4, TSH, CMP #### [facility] [address] [place] [address] Dr. Rena Barone Urea nitrogen [Mass/Vol] 30.0 mg/dL Critically high 7.0-18.0 [facility] Comment on above: Performed By: #### L IPID, T4, TSH, CMP #### [facility] [address] [place] [address] Dr. Rena Barone Urea nitrogen/Creatinine [Mass ratio] 22.4 mg/mg Normal [facility] Comment on above: Performed By: #### L IPID, T4, TSH, CMP #### [facility] [address] [place] [address] Dr. Rena Barone T4on 02-21-2023 T4 [Mass/Vol] 5.20 ug/dL Normal 4.50-12.10 [facility] Comment on above: Performed By: #### L IPID, T4, TSH, CMP #### [facility] [address] [place] [address] Dr. Rena Barone TSHon 02-21-2023 TSH 2.379 uIU/mL Normal 0.358-3.740 [facility] Comment on above: Performed By: #### L IPID, T4, TSH, CMP #### [facility] [address] [place] [address] Dr. Rena Barone GLYCOHEMOGLOBIN A1Con 2022 ADA RECOMMENDATION SEE BELOW Normal [facility] Comment on above: Result Comment: ADA RECOMMENDED LIMIT 4.0 - 6.0 ADA THERAPEUTIC TARGET < 7.0 ACTION SUGGESTED > 7.0 Performed By: #### L IPID, T4, TSH, CMP #### [facility] [address] [place] [address] [address] Rena Barone Glucose [Mass/Vol] 169 mg/dL Normal [facility] Comment on above: Performed By: #### L IPID, T4, TSH, CMP #### [facility] [address] [address] [address] Rena Barone HbA1c (Bld) [Mass fraction] 7.5 % Critically high 4.5-6.2 [facility] Comment on above: Performed By: #### L IPID, T4, TSH, CMP #### [facility] [address] [address] [address] Rena Barone Glucose Glucometer (BldC) [M ass/Vol]Ordered By: Deon Greene on 10-07-2022 Glucose [Mass/Vol] 170 mg/dL [facility] Comment on above: Random Glucose Refer ence Range is dependent on time and content of last meal. Glucose of more than 200 mg/dL in a nonstressed, ambulatory subject supports the diagnosis of Diabetes Mellitus. GLYCOHEMOGLOBIN A1Con 2021 ADA RECOMMENDATION SEE BELOW Normal [facility] Comment on above: Result Comment: ADA RECOMMENDED LIMIT 4.0 - 6.0 ADA THERAPEUTIC TARGET < 7.0 ACTION SUGGESTED > 7.0 Performed By: #### L IPID, T4, TSH, CMP #### [facility] [address] [address] [address] Rena Barone Glucose [Mass/Vol] 160 mg/dL Normal [facility] Comment on above: Performed By: #### L IPID, T4, TSH, CMP #### [facility] [address] [address] [address] Rena Barone HbA1c (Bld) [Mass fraction] 7.2 % Critically high 4.5-6.2 [facility] Comment on above: Performed By: #### L IPID, T4, TSH, CMP #### [facility] [address] [address] [address] Rena Barone Physician Referralon 022 Physician Referral [phone] [id number] Normal [facility] COVID Quick Testingon 2021 Result Positive [employer] Other METHYLMALONIC ACID (MMA)on 0 03-23-2022 Methylmalonic Acid, Serum 210 nmol/L Normal 0-378 [facility] Comment on above: Performed By: #### L IPID, T4, TSH, CMP #### [facility] [address] [address] [address] Rena Barone FOLATE ([facility])on 2 Folate 16.6 ng/mL Normal >3.0 [facility] Comment on above: Result Comment: A se rum folate concentration of less than 3.1 ng/mL is considered to represent clinical deficiency. Performed By: #### L IPID, T4, TSH, CMP #### [facility] [address] [place] [address] Dr. Rena Barone GLYCOHEMOGLOBIN A1Con 2021 ADA RECOMMENDATION SEE BELOW Normal [facility] Comment on above: Result Comment: ADA RECOMMENDED LIMIT 4.0 - 6.0 ADA THERAPEUTIC TARGET < 7.0 ACTION SUGGESTED > 7.0 Performed By: #### L IPID, T4, TSH, CMP #### [facility] [address] [place] [address] Dr. Rena Barone Glucose [Mass/Vol] 160 mg/dL Normal [facility] Comment on above: Performed By: #### L IPID, T4, TSH, CMP #### [facility] [address] [address] [address] Rena Barone HbA1c (Bld) [Mass fraction] 7.2 % Critically high 4.5-6.2 [facility] Comment on above: Performed By: #### L IPID, T4, TSH, CMP #### [facility] [address] [place] [address] Dr. Rena Barone RETICULOCYTEon 03-15-2022 RETIC 1.64 % Normal 0.60-3.10 [facility] Comment on above: Performed By: #### R ETIC #### [facility] [address] [address] [address] Rena Barone VITAMIN B12on 03-15-2022 Cobalamin (Vitamin B12) [Mass/Vol] 386.0 pg/mL Normal 193.0-986.0 [facility] Comment on above: Performed By: #### L IPID, T4, TSH, CMP #### [facility] [address] [place] [address] Dr. Rena Barone CBC AUTO DIFFon 02-26-2022 BASO # 0.0 103/ul Normal 0.0-0.1 [facility] Comment on above: Performed By: #### L IPID, T4, TSH, CMP #### [facility] [address] [place] [address] Dr. Rena Barone Basophils/100 WBC (Bld) 0.3 % Normal 0.2-2.0 [facility] Comment on above: Performed By: #### L IPID, T4, TSH, CMP #### [facility] [address] [place] [address] Dr. Rena Barone EO # 0.2 103/ul Normal 0.0-0.7 [facility] Comment on above: Performed By: #### L IPID, T4, TSH, CMP #### [facility] [address] [place] [address] Dr. Rena Barone Eosinophils/100 WBC (Bld) 2.0 % Normal 0.9-7.0 [facility] Comment on above: Performed By: #### L IPID, T4, TSH, CMP #### [facility] [address] [place] [address] Dr. Rena Barone Erythrocyte distribution width (RBC) [Ratio] 12.9 % Normal 11.0-15.0 [facility] Comment on above: Performed By: #### L IPID, T4, TSH, CMP #### [facility] [address] [place] [address] Dr. Rena Barone Hematocrit (Bld) [Volume fraction] 38.1 % Critically low 42.0-54.0 [facility] Comment on above: Performed By: #### L IPID, T4, TSH, CMP #### [facility] [address] [place] [address] Dr. eRna Barone Hemoglobin (Bld) [Mass/Vol] 12.5 g/dL Critically low 14.0-18.0 [facility] Comment on above: Performed By: #### L IPID, T4, TSH, CMP #### [facility] [address] [place] [address] Dr. Rena Barone IG # 0.03 10e3/ul Normal 0.00-0.03 [facility] Comment on above: Performed By: #### L IPID, T4, TSH, CMP #### [facility] [address] [place] [address] Dr. Rena Barone IG % 0.3 % Normal 0.0-0.5 [facility] Comment on above: Performed By: #### L IPID, T4, TSH, CMP #### [facility] [address] [place] [address] Dr. Rena Barone LYMPH # 1.8 103/ul Normal 1.2-3.8 [facility] Comment on above: Performed By: #### L IPID, T4, TSH, CMP #### [facility] [address] [place] [address] Dr. Rena Barone Lymphocytes/100 WBC (Bld) 18.9 % Critically low 20.5-60.0 [facility] Comment on above: Performed By: #### L IPID, T4, TSH, CMP #### [facility] [address] [place] [address] Dr. Rena Barone MANUAL DIFF REQ NO Normal [facility] Comment on above: Performed By: #### L IPID, T4, TSH, CMP #### [facility] [address] [place] [address] Dr. Rena Barone MCH (RBC) [Entitic mass] 33.3 pg Normal 25.9-34.0 [facility] Comment on above: Performed By: #### L IPID, T4, TSH, CMP #### [facility] [address] [place] [address] Dr. Rena Barone MCHC (RBC) [Mass/Vol] 32.8 g/dL Normal 29.9-35.2 [facility] Comment on above: Performed By: #### L IPID, T4, TSH, CMP #### [facility] [address] [place] [address] Dr. Rena Barone MCV (RBC) [Entitic vol] 101.6 fL Critically high 80.0-94.0 [facility] Comment on above: Performed By: #### L IPID, T4, TSH, CMP #### [facility] [address] [place] [address] Dr. Rena Barone MONO # 0.8 103/ul Normal 0.3-0.8 [facility] Comment on above: Performed By: #### L IPID, T4, TSH, CMP #### [facility] [address] [place] [address] Dr. Rena Barone Monocytes/100 WBC (Bld) 9.0 % Normal 1.7-12.0 [facility] Comment on above: Performed By: #### L IPID, T4, TSH, CMP #### [facility] [address] [place] [address] Dr. Rena Barone NEUT # 6.5 103/ul Normal 1.4-6.5 [facility] Comment on above: Performed By: #### L IPID, T4, TSH, CMP #### [facility] [address] [place] [address] Dr. Rena Barone Neutrophils/100 WBC (Bld) 69.5 % Normal 43.0-75.0 [facility] Comment on above: Performed By: #### L IPID, T4, TSH, CMP #### [facility] [address] [place] [address] Dr. Rena Barone Platelet mean volume (Bld) [Entitic vol] 12.0 fL Normal 9.5-13.5 [facility] Comment on above: Performed By: #### L IPID, T4, TSH, CMP #### [facility] [address] [place] [address] Dr. Rena Barone PLT 166 103/ul Normal 150-450 [facility] Comment on above: Performed By: #### L IPID, T4, TSH, CMP #### [facility] [address] [address] [address] Rena Barone RBC 3.75 106/ul Critically low 4.70-6.10 [facility] Comment on above: Performed By: #### L IPID, T4, TSH, CMP #### [facility] [address] [address] [address] Rena Barone WBC 9.3 103/ul Normal 4.0-11.0 [facility] Comment on above: Performed By: #### L IPID, T4, TSH, CMP #### [facility] [address] [address] [address] Rena Barone LIPID PROFILEon 02-26-2022 CHOL-HDL RATIO NORM SEE BELOW Normal [facility] Comment on above: Result Comment: 3.3 - 4.4 LOW RISK 4.4 - 7.1 AVERAGE RISK 7.1 - 11.0 MODERATE RISK >11.0 HIGH RISK Performed By: #### L IPID, T4, TSH, CMP #### [facility] [address] [address] [address] Rena Barone Cholesterol [Mass/Vol] 133 mg/dL Normal <=200 [facility] Comment on above: Performed By: #### L IPID, T4, TSH, CMP #### [facility] [address] [address] [address] Rena Barone Cholesterol in HDL [Mass/Vol] 29 mg/dL Critically low 40-60 [facility] Comment on above: Performed By: #### L IPID, T4, TSH, CMP #### [facility] [address] [address] [address] Rena Barone Cholesterol in LDL [Mass/Vol] 66.8 mg/dL Normal [facility] Comment on above: Performed By: #### L IPID, T4, TSH, CMP #### [facility] [address] [address] [address] Rena Barone Cholesterol.total/C holesterol in HDL [Mass ratio] 4.6 {ratio} Normal [facility] Comment on above: Performed By: #### L IPID, T4, TSH, CMP #### [facility] [address] [address] [address] Rena Barone HDL NORMAL > or = 60 mg/dl - LO W CARDIOVASCULAR RISK <40 mg/dl - HIGH CARDIOVASCULAR RISK Normal [facility] Comment on above: Performed By: #### L IPID, T4, TSH, CMP #### [facility] [address] [address] [address] Rena Barone LDL CALC NORMAL SEE BELOW Normal [facility] Comment on above: Result Comment: <100 mg/dl OPTIMAL 100 - 129 mg/dl NEAR OR ABOVE OPTIMAL 130 - 159 mg/dl BORDERLINE HIGH 160 - 189 mg/dl HIGH >190 mg/dl VERY HIGH Performed By: #### L IPID, T4, TSH, CMP #### [facility] [address] [address] [address] Rena Barone Triglyceride [Mass/Vol] 186 mg/dL Critically high <=150 [facility] Comment on above: Performed By: #### L IPID, T4, TSH, CMP #### [facility] [address] [address] [address] Rena Barone VLDL CALC 37.2 mg/dL Normal [facility] Comment on above: Performed By: #### L IPID, T4, TSH, CMP #### [facility] [address] [address] [address] Rena Barone PROF 14(COMP METB)on 022 Albumin [Mass/Vol] 3.8 g/dL Normal 3.4-5.0 [facility] Comment on above: Performed By: #### L IPID, T4, TSH, CMP #### [facility] [address] [address] [address] Rena Barone Albumin/Globulin [Mass ratio] 1.0 {ratio} Normal [facility] Comment on above: Performed By: #### L IPID, T4, TSH, CMP #### [facility] [address] [address] [address] Rena Barone ALP [Catalytic activity/Vol] 83 U/L Normal 46-116 [facility] Comment on above: Performed By: #### L IPID, T4, TSH, CMP #### [facility] [address] [place] [address] Dr. Rena Barone ALT [Catalytic activity/Vol] 28 U/L Normal 16-63 [facility] Comment on above: Performed By: #### L IPID, T4, TSH, CMP #### [facility] [address] [place] [address] Dr. Rena Barone Anion gap [Moles/Vol] 15.9 mmol/L Normal [facility] Comment on above: Performed By: #### L IPID, T4, TSH, CMP #### [facility] [address] [place] [address] Dr. Rena Barone AST [Catalytic activity/Vol] 16 U/L Normal 15-37 [facility] Comment on above: Performed By: #### L IPID, T4, TSH, CMP #### [facility] [address] [place] [address] Dr. Rena Barone Bilirubin [Mass/Vol] 0.6 mg/dL Normal 0.2-1.0 [facility] Comment on above: Performed By: #### L IPID, T4, TSH, CMP #### [facility] [address] [place] [address] Dr. Rena Barone Calcium [Mass/Vol] 8.9 mg/dL Normal 8.5-10.1 [facility] Comment on above: Performed By: #### L IPID, T4, TSH, CMP #### [facility] [address] [place] [address] Dr. Rena Barone Chloride [Moles/Vol] 101 mmol/L Normal 98-107 [facility] Comment on above: Performed By: #### L IPID, T4, TSH, CMP #### [facility] [address] [place] [address] Dr. Rena Barone CO2 [Moles/Vol] 24.4 mmol/L Normal 21.0-32.0 The [facility] Comment on above: Performed By: #### L IPID, T4, TSH, CMP #### [facility] [address] [address] [address] Rena Barone Creatinine [Mass/Vol] 1.09 mg/dL Normal 0.70-1.30 [facility] Comment on above: Performed By: #### L IPID, T4, TSH, CMP #### [facility] [address] [address] [address] Rena Barone EGFR-AF CONGOLESE >60 Normal >=60 [facility] Comment on above: Performed By: #### L IPID, T4, TSH, CMP #### [facility] [address] [address] [address] Rena Barone EGFR-NON AF CONGOLESE >60 Normal >=60 [facility] Comment on above: Performed By: #### L IPID, T4, TSH, CMP #### [facility] [address] [place] [address] Dr. Rena Barone Globulin (S) [Mass/Vol] 3.8 g/dL Normal [facility] Comment on above: Performed By: #### L IPID, T4, TSH, CMP #### [facility] [address] [place] [address] Dr. Rena Barone Glucose [Mass/Vol] 130 mg/dL Critically high 74-106 [facility] Comment on above: Performed By: #### L IPID, T4, TSH, CMP #### [facility] [address] [place] [address] Dr. Rena Barone Potassium [Moles/Vol] 4.3 mmol/L Normal 3.5-5.1 [facility] Comment on above: Performed By: #### L IPID, T4, TSH, CMP #### [facility] [address] [address] [address] Rena Barone Protein [Mass/Vol] 7.6 g/dL Normal 6.4-8.2 [facility] Comment on above: Performed By: #### L IPID, T4, TSH, CMP #### [facility] [address] [address] [address] Rena Barone Sodium [Moles/Vol] 137 mmol/L Normal 136-145 [facility] Comment on above: Performed By: #### L IPID, T4, TSH, CMP #### [facility] [address] [address] [address] Rena Barone Urea nitrogen [Mass/Vol] 26.0 mg/dL Critically high 7.0-18.0 [facility] Comment on above: Performed By: #### L IPID, T4, TSH, CMP #### [facility] [address] [address] [address] Rena Barone Urea nitrogen/Creatinine [Mass ratio] 23.9 mg/mg Normal [facility] Comment on above: Performed By: #### L IPID, T4, TSH, CMP #### [facility] [address] [place] [address] Dr. Rena Barone T4on 02-26-2022 T4 [Mass/Vol] 4.20 ug/dL Critically low 4.50-12.10 [facility] Comment on above: Performed By: #### L IPID, T4, TSH, CMP #### [facility] [address] [address] [address] Rena Barone TSHon 02-26-2022 TSH 3.428 uIU/mL Normal 0.358-3.740 [facility] Comment on above: Performed By: #### L IPID, T4, TSH, CMP #### [facility] [address] [place] [address] Dr. Rena Barone TSH RANGE SEE BELOW Normal [facility] Comment on above: Result Comment: <0.3 4 UIU/ml HYPERTHYROID 0.34-5.60 UIU/ml EUTHYROID >5.60 UIU/ml HYPOTHYROID Performed By: #### L IPID, T4, TSH, CMP #### [facility] [address] [place] [address] Dr. Rena Barone Vital Signs Date Time Vital Sign Value Performing Clinician Facility 07-16-2024 09:00-0400 Body mass index (BMI) [Ratio] 45.3 kg/m2 [facility] 07-16-2024 09:00-0400 Diastolic blood pressure 69 mm[Hg] [facility] 07-16-2024 09:00-0400 Heart rate 75 /min [facility] 07-16-2024 09:00-0400 Systolic blood pressure 108 mm[Hg] [facility] 07-13-2024 22:16-0400 Body height 177.8 cm [facility] 07-13-2024 22:16-0400 Body weight 143.33 kg [facility] 03-12-2024 09:46-0400 Body height 177.8 cm [facility] 03-12-2024 09:46-0400 Body mass index (BMI) [Ratio] 45.3 kg/m2 [facility] 03-12-2024 09:46-0400 Body weight 143.5 kg [facility] 03-12-2024 09:46-0400 Diastolic blood pressure 69 mm[Hg] [facility] 03-12-2024 09:46-0400 Heart rate 80 /min [facility] 03-12-2024 09:46-0400 Respiratory rate 16 /min [facility] 03-12-2024 09:46-0400 Systolic blood pressure 107 mm[Hg] [facility] 11-07-2023 09:00-0500 Body height 177.8 cm Delonte Ball Other [facility] Other 11-07-2023 09:00-0500 Body mass index (BMI) [Ratio] 45.11 kg/m2 Delonte Ball Other [facility] Other 11-07-2023 09:00-0500 Body weight 142.61 kg Delonte Ball Other [facility] Other 11-07-2023 09:00-0500 Diastolic blood pressure 86 mm[Hg] Delonte Ball Other [facility] Other 11-07-2023 09:00-0500 Respiratory rate 16 /min Delonte Ball Other [employer] Other 11-07-2023 09:00-0500 Systolic blood pressure 131 mm[Hg] Delonte Ball Other [facility] Other 07-25-2023 09:00-0400 Body height 177.8 cm Delonte Ball Other [facility] Other 07-25-2023 09:00-0400 Body mass index (BMI) [Ratio] 46.54 kg/m2 Delonte Ball Other [facility] Other 07-25-2023 09:00-0400 Body weight 147.15 kg Delonte Ball Other [facility] Other 07-25-2023 09:00-0400 Diastolic blood pressure 83 mm[Hg] Delonte Ball Other [facility] Other 07-25-2023 09:00-0400 Respiratory rate 16 /min Delonte Ball Other [facility] Other 07-25-2023 09:00-0400 Systolic blood pressure 130 mm[Hg] Delonte Ball Other [facility] Other 06-05-2023 11:25-0400 Body height 177.8 cm Bonny Raymundo Other [facility] Other 06-05-2023 11:25-0400 Body mass index (BMI) [Ratio] 46.48 kg/m2 Bonny Raymundo Other [facility] Other 06-05-2023 11:25-0400 Body temperature 98.2 [degF] Bonny Raymundo Other [facility] Other 06-05-2023 11:25-0400 Body weight 146.97 kg Bonny Raymundo Other [facility] Other 06-05-2023 11:25-0400 Diastolic blood pressure 61 mm[Hg] Bonny Raymundo Other [facility] Other 06-05-2023 11:25-0400 Respiratory rate 18 /min Bonny Raymundo Other [facility] Other 06-05-2023 11:25-0400 SaO2% (BldA) [Mass fraction] 97 % Bonny Raymundo Other [facility] Other 06-05-2023 11:25-0400 Systolic blood pressure 109 mm[Hg] Bonny Raymundo Other [facility] Other 02-14-2023 11:00-0400 Body height 177.8 cm Bonny Raymundo Other [facility] Other 02-14-2023 11:00-0400 Body mass index (BMI) [Ratio] 47.06 kg/m2 Bonny Raymundo Other [facility] Other 02-14-2023 11:00-0400 Body temperature 98 [degF] Bonny Raymundo Other [facility] Other 02-14-2023 11:00-0400 Body weight 148.78 kg Bonny Raymundo Other [facility] Other 02-14-2023 11:00-0400 Diastolic blood pressure 73 mm[Hg] Bonny Raymundo Other [facility] Other 02-14-2023 11:00-0400 Respiratory rate 18 /min Bonny Raymundo Other [facility] Other 02-14-2023 11:00-0400 SaO2% (BldA) [Mass fraction] 96 % Bonny Raymundo Other [facility] Other 02-14-2023 11:00-0400 Systolic blood pressure 130 mm[Hg] Bonny Raymundo Other [facility] Other 01-09-2023 12:30-0400 Body height 177.8 cm Delonte Ball Other [facility] Other 01-09-2023 12:30-0400 Body mass index (BMI) [Ratio] 48.18 kg/m2 Delonte Ball Other [facility] Other 01-09-2023 12:30-0400 Body weight 152.32 kg Delonte Ball Other [facility] Other 01-09-2023 12:30-0400 Diastolic blood pressure 78 mm[Hg] Delonte Ball Other [facility] Other 01-09-2023 12:30-0400 Respiratory rate 16 /min Delonte Ball Other [facility] Other 01-09-2023 12:30-0400 Systolic blood pressure 124 mm[Hg] Delonte Ball Other [facility] Other 11-01-2022 11:00-0500 Body height 177.8 cm Delonte Ball Other [facility] Other 11-01-2022 11:00-0500 Body mass index (BMI) [Ratio] 48.58 kg/m2 Delonte Ball Other [facility] Other 11-01-2022 11:00-0500 Body weight 153.59 kg Delonte Ball [address] [facility] Other 11-01-2022 11:00-0500 Diastolic blood pressure 76 mm[Hg] Delonte Ball Other [facility] Other 11-01-2022 11:00-0500 Respiratory rate 16 /min Delonte Ball Other [facility] Other 11-01-2022 11:00-0500 Systolic blood pressure 122 mm[Hg] Delonte Ball Other [facility] Other 10-07-2022 10:20-0500 Diastolic blood pressure 68 mm[Hg] DO Delonte Ball Work Phone: [facility] 10-07-2022 10:20-0500 Heart rate 93 /min DO Delonte Ball Work Phone: [facility] 10-07-2022 10:20-0500 Respiratory rate 16 /min DO Delonte Ball Work Phone: [facility] 10-07-2022 10:20-0500 SaO2% (BldA) [Mass fraction] 98 % DO Delotne Ball Work Phone: [facility] 10-07-2022 10:20-0500 Systolic blood pressure 114 mm[Hg] DO Delonte Ball Work Phone: [facility] 10-07-2022 08:37-0500 Body height 176.53 cm DO Delonte Ball Work Phone: [facility] 10-07-2022 08:37-0500 Body temperature 98.7 [degF] DO Delonte Ball Work Phone: [facility] 10-07-2022 08:37-0500 Body weight 147.41 kg DO Delonte Ball Work Phone: [facility] 05-19-2022 12:40-0400 Body height 177.8 cm Bonny Raymundo Other [facility] Other 05-19-2022 12:40-0400 Body mass index (BMI) [Ratio] 45.91 kg/m2 Bonny Raymundo Other [facility] Other 05-19-2022 12:40-0400 Body temperature 100.6 [degF] Bonny Raymundo Other [facility] Other 05-19-2022 12:40-0400 Body weight 145.15 kg Bonny Raymundo Other [facility] Other 05-19-2022 12:40-0400 SaO2% (BldA) [Mass fraction] 98 % Bonny Raymundo Other [facility] Other 08-12-2021 12:30-0400 Body temperature 98.2 [degF] Bonny Ginty Other [facility] Other 08-12-2021 12:30-0400 SaO2% (BldA) [Mass fraction] 92 % Bonny Ginty Other [facility] Other Encounters Encounter Date Encounter Type Care Provider Facility Start: 07-27-2024 End: 07-27-2024 ambulatory [facility] Start: 07-16-2024 End: 07-16-2024 ambulatory [facility] Work Phone: Start: 07-16-2024 End: 07-16-2024 Patient encounter procedure [facility] Work Phone: Start: 06-23-2024 Non-patient / Non-visit [facility] [employer] Work Phone: Start: 04-21-2024 End: 04-21-2024 ambulatory LACHO LACY [facility] Start: 03-24-2024 ambulatory [facility] Start: 03-24-2024 End: 03-24-2024 ambulatory [facility] Start: 03-12-2024 End: 03-12-2024 ambulatory [facility] Work Phone: Start: 03-12-2024 End: 03-12-2024 Patient encounter procedure [facility] Work Phone: Start: 01-20-2024 End: 01-20-2024 ambulatory [facility] Start: 12-18-2023 Non-patient / Non-visit [facility] Work Phone: Start: 12-17-2023 End: 12-17-2023 ambulatory KOLBY [facility] Start: 11-07-2023 End: 11-07-2023 ambulatory Delonte Tejeda Other [employer] Other Start: 11-07-2023 Encounter for genera l adult medical examination without abnormal findings Delonte Tejeda [facility] Start: 11-07-2023 Periodic preventive med est patient 40-64yrs Delonte Tejeda [facility] Start: 10-18-2023 End: 10-18-2023 ambulatory Bonny Raymundo Other [facility] Other Start: 10-18-2023 Telephone encounter Bonny Raymundo [facility] Start: 10-17-2023 Telephone encounter Delonte Tejeda [facility] Start: 10-17-2023 End: 10-17-2023 ambulatory DO Delonte Nikhil Work Phone: [employer] Other Start: 10-17-2023 End: 10-17-2023 Patient encounter procedure DO Delonte Tejeda Work Phone: [facility] Work Phone: Start: 10-09-2023 End: 10-09-2023 ambulatory Delonte Tejeda Other [employer] Other Start: 10-09-2023 Telephone encounter Delonte Tejeda [facility] Start: 07-25-2023 End: 07-25-2023 ambulatory Delonte Tejeda Other [facility] Other Start: 07-25-2023 Office outpatient vi sit 25 minutes Delonte Tejeda [facility] Start: 07-21-2023 End: 07-21-2023 ambulatory Bonny Raymundo Other [facility] Other Start: 07-21-2023 Telephone encounter Bonny Raymundo [facility] Start: 07-11-2023 End: 07-11-2023 ambulatory Delonte Tejeda Other [facility] Other Start: 07-11-2023 Telephone encounter Delonte Tejeda [facility] Start: 06-06-2023 End: 06-06-2023 ambulatory Delonte Tejeda Other [facility] [employer] Other Start: 06-06-2023 Telephone encounter Delonte Tejeda [facility] Start: 06-05-2023 Office outpatient vi sit 15 minutes Bonny Raymundo [facility] Start: 06-05-2023 Telephone encounter Delonte Tejeda [facility] Start: 06-05-2023 End: 06-05-2023 ambulatory DO Delonte Tejeda Work Phone: [facility] Other Start: 06-05-2023 End: 06-05-2023 Patient encounter procedure DO Delonte Ball Work Phone: [facility] Work Phone: Start: 04-18-2023 End: 04-18-2023 ambulatory Delonte Tejeda Other [facility] Other Start: 04-18-2023 Telephone encounter Delonte Tejeda [facility] Start: 04-14-2023 End: 04-14-2023 ambulatory Delonte Tejeda Other [facility] Other Start: 04-14-2023 Telephone encounter Delonte Tejeda [facility] Start: 02-21-2023 End: 02-22-[address] DELONTE TEJEDA Facility: Start: 02-18-2023 End: 02-18-2023 ambulatory Delonte Tejeda Other [facility] Other Start: 02-18-2023 Telephone encounter Delonte Tejeda [facility] Start: 02-14-2023 End: 02-14-2023 ambulatory Bonny Raymundo Other [facility] Other Start: 02-14-2023 Office outpatient vi sit 25 minutes Bonny Raymundo [facility] Start: 01-29-2023 End: 01-29-2023 ambulatory Delonte Tejeda Other [facility] Other Start: 01-29-2023 Telephone encounter Delonte Tejeda [facility] Start: 01-20-2023 End: 01-20-2023 ambulatory Delonte Tejeda Other [facility] Other Start: 01-20-2023 Telephone encounter Delonte Tejeda [facility] Start: 01-09-2023 End: 01-09-2023 ambulatory Delonte Tejeda Other [facility] Other Start: 01-09-2023 Office outpatient vi sit 25 minutes Delonte Tejeda [facility] Start: 12-24-2022 End: 12-24-2022 ambulatory Delonte Tejeda Other [facility] Other Start: 12-24-2022 Telephone encounter Delonet Tejeda [facility] Start: 12-06-2022 End: 12-07-[address] RICARDO LISTED REQUEST Facility:[facility] Start: 11-29-2022 End: 11-30-2022 ambulatory NONE LISTED REQUEST Facility:[facility] Start: 11-25-2022 End: 11-25-2022 ambulatory Delonte Tejeda Other [facility] Other Start: 11-25-2022 Telephone encounter Delonte Tejeda [facility] Start: 11-01-2022 End: 11-01-2022 ambulatory Delonte Tejeda Other [facility] Other Start: 11-01-2022 Encounter for genera l adult medical examination without abnormal findings Delonte Tejeda [facility] Start: 11-01-2022 Patient encounter procedure Delonte Tejeda [facility] Start: 11-01-2022 Periodic preventive med est patient 40-64yrs Delonte Nikhil [facility] Start: 10-18-2022 End: 10-18-2022 ambulatory Bonny Raymundo Other [facility] Other Start: 10-18-2022 Telephone encounter Bonny Raymundo [facility] Start: 10-07-2022 End: 10-07-2022 Admission to same day surgery center DO Delonte Tejeda Work Phone: [facility] Start: 10-07-2022 End: 10-07-2022 ambulatory DO Delonte Tejeda Work Phone: [facility] Work Phone: Start: 07-30-2022 End: 07-31-2022 ambulatory NONE LISTED REQUEST Facility:[facility] Start: 07-12-2022 ambulatory Malik MOLINA Facility : [facility] Start: 06-04-2022 End: 06-05-[address] DELONTE TEJEDA Facility:[facility] Start: 05-19-2022 End: 05-19-2022 ambulatory Bonny Raymundo Other [facility] Other Start: 05-19-2022 Office outpatient vi sit 25 minutes Bonny Raymundo [facility] Start: 05-01-2022 End: 05-02-[address] DELONTE TEJEDA Facility:[facility] Start: 03-15-2022 End: 03-16-[address] DELONTE TEJEDA Facility:[facility] Start: 03-14-2022 End: 03-15-[address] RICARDO LISTED REQUEST Facility:[facility] Start: 02-26-2022 End: 02-27-[address] DELONTE TEJEDA Facility:[facility] Start: 09-07-2021 Adult health examination Bonny Raymundo Other [facility] Other Start: 08-12-2021 End: 08-12-2021 ambulatory Bonny Sr Other [facility] Other Start: 08-12-2021 Office outpatient vi sit 15 minutes Bonny Sr [facility] Procedures Date Procedure Procedure Detail Performing Clinician Start: 06-05-2023 Plain X-ray of left hip DO Delonte Tejeda Work Phone: Start: 02-21-[address] RAYA TEJEDA Comment on above: Performed By: #### P SASC #### [facility] [address] [address] [address] Rena Barone Start: 10-07-2022 Colonoscopy DO Anjali Tejeda Work Phone: Start: 02-26-[address] RAYA TEJEDA Comment on above: Performed By: #### L IPID, T4, TSH, CMP #### [facility] [address] [address] [address] Rena Barone Start: 05-20-2016 General examination of patient Bonny Raymundo Other Start: 01-04-2016 Screening for malign ant neoplasm of colon Bonny Raymundo Other Plan of Treatment Date Care Activity Detail Author Start: 10-07-2022 [facility] Patient Education Colon Polyps [facility] Work Phone: [facility] Immunizations Immunization Date Immunization Notes Care Provider Fa cility 08-19-2022 COVID-19 Pfizer (bivalent) Bonny Raymundo Other [facility] 08-19-2022 COVID-19 Pfizer (Pediatric) Bonny Raymundo Other [facility] 08-19-2022 influenza virus vaccine, split virus (incl. purified surface antigen) Bonny Raymundo Other [facility] Other 08-19-2022 influenza virus vaccine, unspecified formulation [facility] 08-19-2022 influenza, injectabl e, quadrivalent, preservative free Bonny Raymundo Other [facility] 02-09-2022 COVID-19 Pfizer Bonny Raymundo Other [facility] 02-09-2022 COVID-19 Vaccine Pfi zer - Documentation Purposes Only Bonny Raymundo Other [facility] 08-06-2021 COVID-19 Vaccine Pfi zer - Documentation Purposes Only Bonny Raymundo Other [facility] 08-06-2021 influenza virus vaccine, split virus (incl. purified surface antigen) Bonny Raymundo Other [facility] Other 08-06-2021 influenza virus vaccine, unspecified formulation [facility] 01-20-2021 COVID-19 mRNA, Comirnaty (Pfizer) DO [employer] Work Phone: [facility] 12-30-2020 COVID-19 mRNA, Comirnaty (Pfizer) DO [employer] Work Phone: [facility] 07-26-2020 influenza virus vaccine, split virus (incl. purified surface antigen) Bonny Raymundo Other [facility] Other 07-26-2020 influenza virus vaccine, unspecified formulation [facility] 09-06-2017 tetanus and diphther ia toxoids, adsorbed, preservative free, for adult use (5 Lf of tetanus toxoid and 2 Lf of diphtheria toxoid) Bonny Raymundo Other [facility] Payers Date Payer Category Payer Unknown [id number] 2.16.8 [id number] 1960 Unknown [id number] 2.16.84 [id number] 1960 Unknown [id number] 2.16.84 [id number] 1960 Unknown [id number] 2.16.84 [id number] 1960 Self-pay [id number] 1960 Self-pay [id number] 1960 Unknown [id number] 2. [id number] Unknown [id number] 2.16.84 [id number] Unknown [id number] 2.16.84 [id number] Unknown [id number] 2.16.84 [id number] Unknown [id number] 2.16.84 [id number] Unknown [id number] 2.16.84 [id number] Unknown [id number] 2.16.84 [id number] Unknown [id number] 2.16.8 [id number] Unknown [id number] 2.16.8 [id number] Social History Date Type Detail Facility Sex Assigned At [facility] Other Start: 10-07-2022 End: 10-07-2022 Tobacco smoking status NHIS Current some day smoker [facility] Start: 1960 Sex Assigned At Male [facility] Start: 12-18-2023 Tobacco smoking stat us NHIS Ex-smoker (finding) [facility] Goals Date Patient Goal Desired Activity /State [...] any shortness of breath, chest pain, fatigue. [id number] at least 2 for hypertension, DM 2, [...] on file Intimate Partner Violence: Unknown (12/11/2023) [place] Safety & [place] Fear of Current or [...] no rales, no (more content not included)... [facility] 04-21-2024 Note [id number]= 2 poin ts- HTN and DM Continue xarelto anticoagulation - denied any bleeding tendencies Rate controlled with Coreg [facility] 04-21-2024 Note Currently pt is cassy soriano post Cardioversion Currently in A fib and rate controlled - Dr Fatima notified and d/w pt about possible A fib ablation [facility] 04-21-2024 Note [facility]TP CARDIOLOGY PROGR ESS NOTE [...] any shortness of breath, chest pain, fatigue. [id number] at least 2 for hypertension, DM 2, [...] 100 QT Interval 406 QTC CALCULATION(BAZETT) 447 R-[place] 49 T Wave [place] 38 Impression Atrial fibrillation Abnormal ECG No previous ECGs available Echo: 09/2023 tte Assessment/Plan: History (more content not included)... [facility] 04-21-2024 Note Patient here for fol low [...] All other systems reviewed and are negative. [facility] 03-24-2024 Note DIRECT CARDIOVERSION PROCEDURE NOTE Date: [...] any shortness of breath, chest pain, fatigue. [id number] at least 2 for hypertension, DM 2, [...] consider ablation. Felipe Fatima MD Cardiac Electrophysiology [facility] 03-24-2024 Note Patient: Salomón desai Procedure Information Date/Time: 03/24/24829 Procedure: Cardioversion - TO BE DONE IN March Location: [facility] [facility] / [facility]ASC[facility] (Cath) Providers: Felipe Fatima MD Clinical information reviewed: Tobacco Allergies Meds Med Hx Surg Hx Fam Hx Soc Hx Physical Exam Airway Mallampati: II TM distance: >3 FB Neck ROM: full Cardiovascular Dental Pulmonary Abdominal Anesthesia Plan ASA 2 CSE Anesthetic plan and risks discussed with patient. Use of blood products discussed with patient who. Additional Equipment Requests [facility] 01-20-2024 Note [place] Electrophysiology Consult Note Reason for visit: persistent [...] any shortness of breath, chest pain, fatigue. [id number] at least 2 for hypertension, DM 2, [...] tender Musculoskeletal In (more content not included)... [facility] 12-17-2023 Note [facility] Electrophysiology Consult Note Reason [...] stopped on flecainide given having breakthrough episodes. [id number] at least 2 for hypertension, DM 2, [...] on file Intimate Partner Violence: Unknown (12/11/2023) [place] Safety [place] Fear of Current or [...] Lids and Conju (more content not included)... [facility] 12-17-2023 Note New patient here to establish care. Ref from Dr. Tejeda for hx of afib. He used to see [facility] in [place], and hasn't seen them in a few [...] All other systems reviewed and are negative. 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 No bleeding complications Oct, Primary hypertension (ICD-10 - I10) This patient is instructed to consume a healthy, low-fat, low-salt diet. They are also encouraged to continue exercise to achieve/maintain a normal BMI. Oct, Obstructive sleep apnea (ICD-10 - G47.33) This patient is aware of the benefits associated with ELENITA: With continued use, the patient reduces the risk for [place], CVA, HTN, cardiac dysrhythmias and sudden cardiac [...] risk for cerebrovascular and cardiovascular disease. Oct, alf (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 (ICD-10 - Z79.4) Oct, Screening PSA (prostate specific antigen) (ICD-10 - Z12.5) Yearly JACE and PSA [facility] Other 12-30-2023 Evaluation note* Encounter Date Diagnosis Assessment Notes Treatment Notes Treatment Clinical Notes Sep, Longstanding persistent atrial fibrillation (ICD-10 - I48.11) Echo: 09/2023 LVEF low normal, mod diastolic dysfunction, AV sclerosis, moderate MR. RVSP normal. [facility] Other 12-21-2023 Evaluation note* Encounter Date Diagnosis Assessment Notes Treatment Notes Treatment Clinical Notes Sep, Chronic atrial fibrillation (ICD-10 - I48.20) [facility] Other 10-06-2023 Evaluation note* Encounter Date Diagnosis [...] use, the patient reduces the risk for [place], CVA, HTN, cardiac dysrhythmias and sudden cardiac [...] or develop radicular symptoms, notify office Jul, alf (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 (ICD-10 - Z79.4) [facility] Other 10-02-2023 Evaluation note* Encounter Date Diagnosis Assessment Notes Treatment Notes Treatment Clinical Notes Jul, Type 2 diabetes mellitus with hyperglycemia (ICD-10 - E11.65) [facility] Other 09-22-2023 Evaluation note* Encounter Date Diagnosis Assessment Notes Treatment Notes Treatment Clinical Notes Jun, Type 2 diabetes mellitus with hyperglycemia (ICD-10 - E11.65) [facility] Other 08-17-2023 Evaluation note* Encounter Date Diagnosis [...] understanding and is agreeable with treatment plan [facility] Other 08-17-2023 Evaluation note* Encounter Date Diagnosis Assessment Notes Treatment Notes Treatment Clinical Notes May, Left hip pain (ICD-10 - M25.552) [facility] Other 05-02-2023 Evaluation note* Encounter Date Diagnosis Assessment Notes Treatment Notes Treatment Clinical Notes February, Type 2 diabetes mellitus with hyperglycemia, unspecified whether 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 Patient left in stable condition. [facility] Other 04-12-2023 Evaluation note* Encounter Date Diagnosis Assessment Notes Treatment Notes Treatment Clinical Notes Jan, Type 2 diabetes mellitus with hyperglycemia, unspecified whether residential insulin use (ICD-10 - E11.65) [facility] Other 04-03-2023 Evaluation note* Encounter Date Diagnosis Assessment Notes Treatment Notes Treatment Clinical Notes Jan, Type 2 diabetes mellitus with hyperglycemia (ICD-10 - E11.65) [facility] Other 03-23-2023 Evaluation note* Encounter Date Diagnosis [...] use, the patient reduces the risk for [place], CVA, HTN, cardiac dysrhythmias and sudden cardiac [...] are reviewed at the office visit. Dec, alf (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 (ICD-10 - Z79.4) [...] Monitor for rash of HZV Stretching exercises [facility] Other 03-07-2023 Evaluation note* Encounter Date Diagnosis Assessment Notes Treatment Notes Treatment Clinical Notes Dec, Type 2 diabetes mellitus with hyperglycemia, without long-term current use of insulin (ICD-10 - E11.65) [facility] Other 02-06-2023 Evaluation note* Encounter Date Diagnosis Assessment Notes Treatment Notes Treatment Clinical Notes Nov, Type 2 diabetes mellitus with hyperglycemia, without long-term current use of insulin (ICD-10 - E11.65) [facility] Other 01-13-2023 Evaluation note* Encounter Date Diagnosis [...] use, the patient reduces the risk for [place], CVA, HTN, cardiac dysrhythmias and sudden cardiac [...] and feet daily for blisters and ulcerations. 13 Fahad, 2023 Hyperlipidemia type II (ICD-10 - E78.01) Diet and exercise with continued statin therapy. 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 Patient left in stable condition [facility] Other 10-24-2021 Evaluation note* Encounter Date Diagnosis [...] Patient care instructions given in writting by [facility] Care At Home document [facility] Other Evaluation noteNo assessment information available [facility] Work Phone: Evaluation noteNo [employer] Other Evaluation note* Diagnosis Onset Date Resolution Status Atrial fibrillation acute Chronic venous insufficiency of lower extremity acute Hypercholesterolemia acute Hypertension acute ELENITA (obstructive sleep apnea) acute Type 2 diabetes mellitus with hyperglycemia acute [facility] Work Phone: Evaluation note* Diagnosis Onset Date Resolution Status Anemia acute Atrial fibrillation acute Chronic venous insufficiency of lower extremity acute Hypercholesterolemia acute Hypertension acute Obesity acute ELENITA (obstructive sleep apnea) acute Type 2 diabetes mellitus with hyperglycemia acute [facility] Work Phone: History and physical note Author Deon Greene [facility] October 07, 2022 9:27am Note Date/Time October 07, 2022 9:27am [facility] [address] [place] [address] Gastroenterology H&P Signed Patient: Salomón Rush MR#: [id number] : 1960 Acct:[id number] Age/Sex: 61 / M Adm Date: 2 Loc: Room: Type: [facility] Attending Dr: Deon Greene MD [...] <Electronically signed by Deon Greene MD> 10/07/22926 [facility] Work Phone: [facility] [facility] Narrative - Reported* Type Description Date Medical History hypertension Medical History Diabetes Medical History a. 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 - Office number [phone].[facility] Work Phone: Reason for referral (narrative)* Reason * 11/28 Referral for persistent atrial fibrillation. Diagnosis 1 Chronic atrial fibri llation (I48.20) Referral Organization [facility] Referring Provider First Name Delonte Referring Provider Last Name Nikhil Referring Provider Specialty Internal Hi kalani Referred Organization [facility] Referred Provider Felipe Fatima Ref[address] Address [address], [place],[address] Referred Provider Specialty Cardiology Referral Priority Routine [...] faxed Clinical Notes Include recent Echo f: [id number] [facility] Other Summary Purpose Family History No Family [...] BLACK JEEP, HIARRHEA, NA USEA, NASAL CONGESTION [id number] JEEP, COUGH, SORE THROAT, POSITIVE HOME TESTNo InformationWELLNESSNo InformationDifferent MedicationOzempic increasePossible Pulled MusclerefillNo InformationOzempicchest/head coldmed refillHRHRLeft hip painWants on TodayNo InformationOzempicNo Information3 month Follow upPrescription ReminderEKG resultsNo InformationWELLNESSWELLNESS (unrecognized sect ion and content) No Status Records FoundNo Status Records FoundNo Status Records FoundNo Status Records Found INFORMATION SOURCE (unrecogn ized section and content) DATE CREATED AUTHOR 07/22/2022 Luis Daniel [facility] DATE CREATED AUTHOR AUTHOR'S ORGANIZ ATION 02/21/2023 [facility] DATE CREATED AUTHOR AUTHOR'S ORGANIZ ATION 10/30/2023 [facility] DATE CREATED AUTHOR AUTHOR'S ORGANIZ ATION 08/03/[address] [facility] Care Teams (unrecognized sec tion and [...] Tejeda , DO Primary Care Provider, Attending Pr arsh Active Team Status: Active Member Role Status [...] BE BASED ON THE PRIMARY CLINICAL RECORDS. [employer] provides no warranty or guarantee of the accuracy or completeness of information in this document.
[2024-08-13 13:05] LABS: Creatinine Urine Random 99.97 mg/dL (20.00-300.00); Protein Creatinine Ratio Urine 0.07; Total Protein Urine Random 7.4 mg/dL (<=11.9)
== END 2024-08-13 09:26 | disposition home or self-care (01) ==
LOC: LAB 09:25
PROVIDERS: PCP Internal Medicine; Visit Provider Internal Medicine
DX: N18.9 Chronic kidney disease, unspecified (principal)
CPT/HCPCS: 82570; 84156

== ENCOUNTER 2024-09-17 07:59 | Emergency (ER) | payer OTHER, SELFPAY ==
[2024-09-17 08:06] VITALS: BP 135/66; PULSE 70; TEMP 36.6; O2SAT 99; BMI 45.9
--- OUTSIDE RECORDS SUMMARY | 2024-09-17 08:10 | XMS_ITS | CCD ---
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 Name Role Phone Remberto Bonny Unavailable Bonny Raymundo Unavailable Malik MOLINA Attending Unavailable BALL PROVIDER, DELONTE Referring Unavaila ble DO Delonte Tejeda Primary Care Provider [phone] MD Deon Greene Attending Provider Delonte Tejeda Unavailable GEOVANI, DR MARTEL Consulting Unavailable BALL, DR MARTEL Primary Care Unavailable BALL, DR MARTEL Admitting Unavailable BALL, DR MARTEL Attending Unavailable BALL, DR MARTEL Consulting Unavailable BALL, DR MARTEL Admitting Unavailable BALL, DR MARTEL Attending Unavailable BALL, DR MARTEL Primary Care Unavailable BALL, DR MARTEL Attending Unavailable BALL, DR MARTEL Primary Care Unavailable BALL, DR MARTLE Admitting Unavailable BALL, DR MARTEL Consulting Unavailable BALL, DR MARTEL Attending Unavailable BALL, DR MARTEL Primary Care Unavailable BALL, DR MARTEL Admitting Unavailable BALL, DR MARTEL Consulting Unavailable BALL, DR MARTEL Primary Care Unavailable BALL, DR MARTEL Admitting Unavailable BALL, DR MARTEL Attending Unavailable BALL, DR MARTEL Consulting Unavailable REQUEST, DR RICARDO LISTED Admitting Unavaila ble REQUEST, DR RICARDO LISTED Attending Unavaila ble REQUEST, DR RICARDO LISTED Consulting Unavaila ble BALL, DR MARTEL Primary Care Unavailable REQUEST, NONE LISTED Attending Unavaila ble REQUEST, DR RICARDO LISTED Consulting Unavaila ble REQUEST, DR RICARDO LISTED Admitting Unavaila ble BALL, DR MARTEL Primary Care Unavailable REQUEST, DR RICARDO LISTED Admitting Unavaila ble REQUEST, DR RICARDO LISTED Attending Unavaila ble BALL, DR MARTEL Primary Care Unavailable BALL, DR MARTEL Consulting Unavailable REQUEST, NONE LISTED Admitting Unavaila ble REQUEST, NONE LISTED Attending Unavaila ble BALL, DR MARTEL Primary Care Unavailable BallDO Martel Primary Care Provider [phone] GABRIELLA Raymundo Attending Provider DO Delonte Tejeda Primary Care Provider DO Delonte Tejeda Attending Provider Delonte Tejeda Admitting Unavailable Geovani, Delonte Primary Care Unavailable Geovani, Delonte Attending Unavailable Zackary, Bonny Gloria Admitting Unavailable Zackary, Bonny Gloria Attending Unavailable Geovani, Delonte Primary Care Unavailable REBECCA, FELIPE Referring Unavailable REBECCA, FELIPE Attending Unavailable BARAZIKOLBY Attending Unavailable REBECCA, FELIPE Attending Unavailable NAZZAL, SHELIA Referring Unavailable REBECCA, FELIPE Referring Unavailable REBECCA, FELIPE Referring Unavailable REBECCA, FELIPE Referring Unavailable REGINO, LACHO Attending Unavailable REBECCA, FELIPE Attending Unavailable REBECCA, FELIPE Referring Unavailable REBECCA, FELIPE Admitting Unavailable REBECCA, FELIPE Attending Unavailable REBECCA, FELIPE Admitting Unavailable REBECCA, FELIPE Referring Unavailable MELA, SHAWN Attending Unavailable REBECCA, FELIPE Referring Unavailable Medications Current Medications Medication Drug Class(es) [...] once daily Allopurinol Active 0 .ROUTE .COMPLEX June 29, 2024 [...] once daily Amlodipine Active 0 .ROUTE .COMPLEX February 23, 2024 [...] daily Potassium Chloride Active 0 .ROUTE .COMPLEX 90 June 29, 2024 8:34am TAKE ONE TABLET [...] atrial fibrillation; Translations: [Paroxysmal atrial fibrillation] Onset: 07-28-2024 03-10-2024 Chronic Deficiency and other anemia (20 [...] sources) Long-term current use of insulin; Translations: [detention (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] Episodic Other and [...] [Venous insufficiency (chronic) (peripheral)] 03-10-2024 Episodic Other injuries and conditions due to external causes (2 sources) Other injury of unspecified body region, initial encounter; Translations: [Other injury of unspecified body region, initial encounter] Onset: 09-09-2024 Episodic Other non-traumatic joint disorders (2 sources) [...] Translations: [Pain in left hip] Onset: 06-05-2023 Unclassified (2 sources) Other persistent atrial fibrillation; Translations: [Other persistent atrial fibrillation] Onset: 09-09-2024 Viral infection (20 sources) Herpes zoster with [...] Onset: 01-14-2018 Episodic Other aftercare (6 sources) 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 I am calling you to follow up on your stay with us and make sure all of your questions have been answered. You will be receiving a survey either electronic or via mail and we always aim to receive 9???s and 10???s. If there is any reason you feel as though you cannot give us these scores please indicate that now. 1. How have you been feeling since being discharged from the hospital? Very sore and a lot of swelling. 2. Did you understand your discharge instructions when they were given to prior to leaving? Yes Were you given an opportunity to ask questions? Yes 3. While a patient in the hospital, was your call light answered in a timely manner? Yes 4. Do have access to all medications that were prescribed to you at discharge? Yes 5. How would you rate your overall stay on a scale of 0-10, 10 being the best experience you have ever had. 9 6. Do you have any further questions you would like to discuss? Patient Name Salomón Rush Date 09/13/24 [facility] Telephoneon 09-13-2024 Telephone [id number] YennylloydRosalind Troy 1960 M Date Provider Department Center 09/13/2024 ANAHI RAMIREZ [facility] Family History Problem Relation Age of Onset Cancer Mother Heart disease Mother Cancer Father Family Status - Relation Status Age at Mother Father Reason for Visit and Comments: Hospital Follow-up [832] Normal [facility] 30on 09-12-2024 30 The patient is Moderately Stable - Low risk of patient condition declining or worsening The patient's goals for the shift include Comfort and rest The clinical goals for the shift include VSS and comfort Problem: Pain - Adult Goal: Verbalizes/displays adequate comfort level or baseline comfort level Outcome: Progressing Problem: Safety - Adult Goal: Free from fall injury Outcome: Progressing Problem: Discharge Planning Goal: Discharge to home or other facility with appropriate resources Outcome: Progressing Normal [facility] HEMOGLOBIN AND HEMATOCRIT, B LOODon 09-12-2024 Hematocrit (Bld) [Volume fraction] 25.1 % Low 39.0-55.0 [facility] Comment on above: Performed By: #### L [id number] #### [facility] ([facility]) [address] [place] [address] Hemoglobin (Bld) [Mass/Vol] 8.6 g/dL Low 13.0-17.0 [facility] Comment on above: Performed By: #### L [id number] #### [facility] ([facility]) [address] [place] [address] Hematocrit (Bld) [Volume fraction] 25.3 % Low 39.0-55.0 [facility] Comment on above: Performed By: #### L [id number] #### [facility] ([facility]) [address] [place] [address] Hemoglobin (Bld) [Mass/Vol] 8.4 g/dL Low 13.0-17.0 [facility] Comment on above: Performed By: #### L [id number] #### [facility] [address] [place] [address] POCT GLUCOSE METER UNSOLICIT ED RESULTSon 09-12-2024 Glucose [Mass/Vol] 157 mg/dL High 70-105 [facility] Comment on above: Order Comment: Waive d Testing in the ED is performed under the ED CLIA certificate #[id number]. Result Comment: [email or web address] Performed By: #### L [id number] #### [facility] ([facility]) [address] [place] [address] 30on 09-11-2024 30 The patient is Moderately Stable - Low risk of patient condition declining or worsening The patient's goals for the shift include Comfort and rest The clinical goals for the shift include VSS and comfort Problem: Pain - Adult Goal: Verbalizes/displays adequate comfort level or baseline comfort level Outcome: Progressing Problem: Safety - Adult Goal: Free from fall injury Outcome: Progressing Problem: Chronic Conditions and Co-morbidities Goal: Patient's chronic conditions and co-morbidity symptoms are monitored and maintained or improved Outcome: Progressing Normal [facility] 30 The patient is Moderately Stable - Low risk of patient condition declining or worsening The patient's goals for the shift include reduced site swelling The clinical goals for the shift include vss Problem: Pain - Adult Goal: Verbalizes/displays adequate comfort level or baseline comfort level Outcome: Progressing Problem: Safety - Adult Goal: Free from fall injury Outcome: Progressing Problem: Chronic Conditions and Co-morbidities Goal: Patient's chronic conditions and co-morbidity symptoms are monitored and maintained or improved Outcome: Progressing Problem: Discharge Planning Goal: Discharge to home or other facility with appropriate resources Outcome: Progressing Normal [facility] HEMOGLOBIN AND HEMATOCRIT, B LOBurdett 09-11-2024 Hematocrit (Bld) [Volume fraction] 25.7 % Low 39.0-55.0 [facility] Comment on above: Performed By: #### L [id number] #### [facility] [address] [place] [address] Hemoglobin (Bld) [Mass/Vol] 8.6 g/dL Low 13.0-17.0 [facility] Comment on above: Performed By: #### L [id number] #### [facility] ([facility] [address] [place] [address] Hematocrit (Bld) [Volume fraction] 26.8 % Low 39.0-55.0 [facility] Comment on above: Performed By: #### L [id number] #### [facility] ([facility] [address] [place] [address] Hemoglobin (Bld) [Mass/Vol] 9.0 g/dL Low 13.0-17.0 [facility] Comment on above: Performed By: #### L [id number] #### [facility] ([facility]) [address] [place] [address] Hematocrit (Bld) [Volume fraction] 26.6 % Low 39.0-55.0 [facility] Comment on above: Performed By: #### L [id number] ####[facility] ([facility])[address] [place] [address] Hemoglobin (Bld) [Mass/Vol] 8.9 g/dL Low 13.0-17.0 [facility] Comment on above: Performed By: #### L [id number] ####[facility] ([facility])[address] [place] [address] POCT GLUCOSE METER UNSOLICIT ED RESULTSon 09-11-2024 Glucose [Mass/Vol] 183 mg/dL High 70-105 [facility] Comment on above: Order Comment: Waive d Testing in the ED is performed under the ED CLIA certificate #[id number]. Result Comment: [email or web address] Performed By: #### L [id number] #### [facility] ([facility]) [address] [place] [address] Glucose [Mass/Vol] 168 mg/dL High 70-105 [facility] Comment on above: Order Comment: Waive d Testing in the ED is performed under the ED CLIA certificate #[id number]. Result Comment: [email or web address] Performed By: #### L [id number] #### [facility] ([facility]) [address] [place] [address] Glucose [Mass/Vol] 264 mg/dL High 70-105 [facility] Comment on above: Order Comment: Waive d Testing in the ED is performed under the ED CLIA certificate #[id number]. Result Comment: [email or web address] Performed By: #### L [id number] ####[facility] ([facility])[address] [place] [address] Glucose [Mass/Vol] 180 mg/dL High 70-105 [facility] Comment on above: Order Comment: Waive d Testing in the ED is performed under the ED CLIA certificate #[id number]. Result Comment: [email or web address] Performed By: #### L [id number] #### [facility] ([facility]) [address] [place] [address] 30on 09-10-2024 30 The patient is Moderately Stable - Low risk of patient condition declining or worsening The patient's goals for the shift include reduced site swelling The clinical goals for the shift include vss Problem: Pain - Adult Goal: Verbalizes/displays adequate comfort level or baseline comfort level Outcome: Progressing Problem: Safety - Adult Goal: Free from fall injury Outcome: Progressing Flowsheets (Taken 09/10/20242014) Free from fall injury: Assess patient frequently for physical needs Identify cognitive and physical deficits and behaviors that affect risk of falls Stollings fall precautions as indicated by assessment Educate patient/family on patient safety, including physical limitations Instruct patient to call for assistance with activity based on assessment Modify environment to reduce risk of injury Consider OT/PT consult to assist with strengthening/mobility Problem: Discharge Planning Goal: Discharge to home or other facility with appropriate resources Outcome: Progressing Flowsheets (Taken 09/10/20242014) Discharge to home or other facility with appropriate resources: Identify barriers to discharge with patient and caregiver Arrange for needed discharge resources and transportation as appropriate Identify discharge learning needs (meds, wound care, etc) Refer to discharge planning if patient needs post-hospital services based on physician order or complex needs related to functional status, cognitive ability or social support system Problem: Chronic Conditions and Co-morbidities Goal: Patient's chronic conditions and co-morbidity symptoms are monitored and maintained or improved Outcome: Progressing Flowsheets (Taken 09/10/20242014) Care Plan - Patient's Chronic Conditions and Co-Morbidity Symptoms are Monitored and Maintained or Improved: Monitor and assess patient's chronic conditions and comorbid symptoms for stability, deterioration, or improvement Collaborate with multidisciplinary team to address chronic and comorbid conditions and prevent exacerbation or deterioration Update acute care plan with appropriate goals if chronic or comorbid symptoms are exacerbated and prevent overall improvement and discharge Normal [facility] 30 The patient is Moderately Stable - Low risk of patient condition declining or worsening The patient's goals for the shift include comfort The clinical goals for the shift include VSS Problem: Pain - Adult Goal: Verbalizes/displays adequate comfort level or baseline comfort level Outcome: Progressing Problem: Safety - Adult Goal: Free from fall injury Outcome: Progressing Problem: Discharge Planning Goal: Discharge to home or other facility with appropriate resources Outcome: Progressing Normal [facility] CONSULTon 09-10-2024 CONSULT [facility] Vascular/Endovascular Surgery Division Reason For Consult Left groin hematoma History and Present Illness Salomón Rush is a 63 y.o. White male with PMH of A-fib on Xarelto and amiodarone, mild to moderate MR, HTN, insulin-dependent T2D, gout, ELENITA, obesity and HLD who presented to the hospital for elective A-fib ablation, which was done yesterday. Overnight, patient developed swelling and pain in the left groin access site and expanding ecchymosis. Vascular surgery was consulted for the concern of hematoma or pseudoaneurysm. CTA showed hematoma superficial to the left femoral vessels in the left groin measures up to 9.9 cm. No evidence of pseudoaneurysm or active contrast extravasation. Hemoglobin 9.9, down from 11.7 yesterday. Patient hemodynamically stable. Denies any weakness, numbness or tingling to his LLE. Past Medical History Past Medical History: Diagnosis Date Abnormal ECG Afib ([facility]) Arrhythmia Arthritis Atrial fibrillation ([facility]) Diabetes mellitus ([facility]) type 2 Hyperlipidemia Hypertension Joint pain Severe acute respiratory syndrome 05/2022 Sleep apnea Past Surgical History Past Surgical History: Procedure Laterality Date ABLATION OF DYSRHYTHMIC FOCUS CARDIOVERSION 04/12/2024 CATARACT EXTRACTION COLONOSCOPY 2022 ESOPHAGOSCOPY / EGD OTHER SURGICAL HISTORY jason knee surgery ROTATOR CUFF REPAIR Allergies No Known Allergies Current Medications allopurinol, 150 mg, oral, Daily amiodarone, 200 mg, oral, Daily with breakfast amLODIPine, 5 mg, oral, Daily carvedilol, 25 mg, oral, BID with meals co-enzyme Q-10, 50 mg, oral, BID furosemide, 40 mg, oral, Every other day insulin glargine, 15 Units, subcutaneous, Nightly insulin lispro, 0-5 Units, subcutaneous, TID with meals And insulin lispro, 0-4 Units, subcutaneous, Nightly lisinopril, 40 mg, oral, Daily pantoprazole, 40 mg, oral, Daily potassium chloride CR, 20 mEq, oral, Daily pravastatin, 40 mg, oral, Nightly [Held by provider] rivaroxaban, 20 mg, oral, Daily with evening meal Home Medications Medications Prior to Admission Medication Sig Dispense Refill Last Dose allopurinol (Zyloprim) 300 mg tablet Take 150 mg by mouth in the morning. Taking 150 mg daily 09/08/2024 amiodarone (Pacerone) 200 mg tablet TAKE ONE TABLET DAILY 90 tablet 3 09/09/2024 amLODIPine (Norvasc) 5 mg tablet Take 1 tablet by mouth in the morning. 09/09/2024 carvedilol (Coreg) 25 mg tablet Take 1.5 tablets, for 37.5mg , twice daily 270 tablet 3 09/09/2024 co-enzyme Q-10 50 mg capsule Take 50 mg by mouth two times daily. Past Week furosemide (Lasix) 40 mg tablet Take 1 tablet by mouth every other day. Pt taking every other day 09/08/2024 insulin glargine (Lantus) 100 unit/mL injection vial Inject 50 Units under the skin at bedtime. 09/08/2024 lisinopril 40 mg tablet Take 40 mg by mouth in the morning. 09/08/2024 potassium chloride CR (Klor-Con M20) 20 mEq ER tablet Take 20 mEq by mouth in the morning. Do not crush or chew. 09/08/2024 pravastatin (Pravachol) 40 mg tablet Take 40 mg by mouth at bedtime. 09/08/2024 rivaroxaban (Xarelto) 20 mg tablet Take 1 tablet by mouth in the morning. Take with food. Past Week semaglutide (Ozempic) 0.25 mg or 0.5 mg(2 mg/1.5 mL) pen injector Inject 1 mg under the skin 1 (one) time per week. On Mondays Past Month Social History Social History Socioeconomic History Marital status: Spouse name: Not on file Number of children: Not on file Years of education: Not on file Highest education level: Not on file Occupational History Not on file Tobacco Use Smoking status: Some Days Types: Cigars Passive exposure: Current Smokeless tobacco: Never Substance and Sexual Activity Alcohol use: Yes Alcohol/week: 20.0 standard drinks of alcohol Types: 20 Cans of beer per week Drug use: Never Sexual activity: Defer Other Topics Concern Not on file Social History Narrative Not on file Social Determinants of Health Financial Resource Strain: Low Risk (09/09/2024) Overall Financial Resource Strain (CARDIA) Difficulty of Paying Living Expenses: Not hard at all Food Insecurity: No Food Insecurity (09/09/2024) Hunger Vital Sign Worried About Running Out of Food in the Last Year: Never true Ran Out of Food in the Last Year: Not on file Transportation Needs: No Transportation Needs (09/09/2024) Transportation Lack of Transportation (Medical): No Lack of Transportation (Non-Medical): Not on file Physical Activity: Not on file Stress: Not on file Social Connections: Not on file Intimate Partner Violence: Not At Risk (09/09/2024) Humiliation, Afraid, Rape, and Kick questionnaire Fear of Current or Ex-Partner: No Emotionally Abused: No Physically Abused: No Sexually Abused: No Housing Stability: Low Risk (09/09/2024) Housing Stability Vital Sign Unable to Pay for Housing in the [place] (more content not included)... Normal [facility] CONSULT -- Attestation signed by Jay Soliman MD at 09/10/2024 4:45 PM (Updated) By using the attestations below, the signing clinician agrees that I have read and verify that the documentation has been personally reviewed by me and ensure that the documentation accurately reflects the encounter. GC: I personally saw this patient on the day of the encounter, performed the tracey portion(s) of the service and participated in the management and confirm the resident's documentation. Please note there may be an additional personal documentation from me. Additional Comments: Despite the extensive hematoma, the groin is soft. He has intact distal pulses. He denies pain, numbness, or tingling in the lower extremity. The skin over the hematoma does not appear to be overtly stretched; there is no evidence of peau d'orange. Will continue to monitor. Await vascular surgery input. Jay Soliman MD, MPH, [facility], [facility], [facility] Interventional Cardiology Pager Email: [email or web address] ADDENDUM: Discussed with EP colleague Dr. Fatima; anticoagulation should be started as soon as possible. Will await vascular surgery input. The patient is at risk for thromboembolic complications given atrial fibrillation ablation. Cardiology Consult Note Reason for Consult: s/p A-fib ablation HPI: Salomón Rush is a 63 y.o. male with past medical history of A-fib on Xarelto and amiodarone, mild to moderate MR, hypertension, insulin-dependent type 2 diabetes mellitus, gout, hypertension, ELENITA, obesity and hyperlipidemia who presented to the hospital for elective A-fib ablation. The patient had A-fib ablation yesterday which was successful with conversion to sinus rhythm. Procedure was complicated by left groin hematoma. CTA abdomen and pelvis did not reveal any retroperitoneal hematoma or pseudoaneurysm. CTA lower extremity revealed left groin hematoma measuring up to 9.9 cm with no evidence of pseudoaneurysm or active extravasation. Patient hemoglobin today is 9.9 down from 11.7 yesterday. Patient was seen and examined at bedside this morning. He was hemodynamically stable, afebrile, saturating well on room air. The patient complained of mild pain at the site of the procedure but otherwise he she denied chest pain, abdominal pain, nausea or vomiting. Examination of the left groin revealed large area of ecchymosis and small swollen area at the site of the procedure in the left groin. No active bleeding noted or pulsatile mass. Xarelto has been held since yesterday and vascular surgery consulted. Cardiology ROS: Negative except as mentioned. Past Medical History He has a past medical history of Abnormal ECG, Afib (CMS/HCC), Arrhythmia, Arthritis, Atrial fibrillation (CMS/HCC), Diabetes mellitus (CMS/HCC), Hyperlipidemia, Hypertension, Joint pain, Severe acute respiratory syndrome, and Sleep apnea. Surgical History He has a past surgical history that includes Rotator cuff repair; Esophagoscopy / EGD; Colonoscopy; Cardioversion (04/12/2024); Ablation of dysrhythmic focus; Other surgical history; and Cataract extraction. Social History He reports that he has been smoking cigars. He has been exposed to tobacco smoke. He has never used smokeless tobacco. He reports current alcohol use of about 20.0 standard drinks of alcohol per week. He reports that he does not use drugs. Family History Family History Problem Relation Name Age of Onset Cancer Mother Heart disease Mother Cancer Father Allergies Patient has no known allergies. Medications Current Outpatient Medications Medication Instructions allopurinol (ZYLOPRIM) 150 mg, oral, Daily, Taking 150 mg daily amiodarone (Pacerone) 200 mg tablet TAKE ONE TABLET DAILY amLODIPine (Norvasc) 5 mg tablet 1 tablet, oral, Daily carvedilol (Coreg) 25 mg tablet Take 1.5 tablets, for 37.5mg , twice daily co-enzyme Q-10 50 mg, oral, 2 times daily famotidine (PEPCID) 20 mg, oral, 2 times daily furosemide (Lasix) 40 mg tablet 1 tablet, oral, Every other day, Pt taking every other day insulin glargine (LANTUS) 50 Units, subcutaneous, Nightly lisinopril 40 mg, oral, Daily omeprazole (PRILOSEC) 40 mg, oral, Daily before breakfast, Do not crush or chew. potassium chloride CR (Klor-Con M20) 20 mEq ER tablet 20 mEq, oral, Daily, Do not crush or chew. pravastatin (PRAVACHOL) 40 mg, oral, Nightly rivaroxaban (Xarelto) 20 mg tablet 1 tablet, oral, Daily, Take with food. semaglutide (OZEMPIC) 1 mg, subcutaneous, Weekly, On Mondays Medications Prior to Admission Medication Sig Dispense Refill Last Dose allopurinol (Zyloprim) 300 mg tablet Take 150 mg by mouth in the morning. Taking 150 mg daily 09/08/2024 amiodarone (Pacerone) 200 mg tablet TAKE ONE TABLET DAILY 90 tablet 3 (more content not included)... Normal [facility] HEMOGLOBIN AND HEMATOCRIT, B LOODon 09-10-2024 Hematocrit (Bld) [Volume fraction] 26.4 % Low 39.0-55.0 [facility] Comment on above: Performed By: #### L [id number] #### [facility] ([place]) [address] [place] [address] Hemoglobin (Bld) [Mass/Vol] 9.0 g/dL Low 13.0-17.0 [facility] Comment on above: Performed By: #### L [id number] #### [facility] [address] [place] [address] Hematocrit (Bld) [Volume fraction] 28.3 % Low 39.0-55.0 [facility] Comment on above: Performed By: #### L [id number] #### [facility] ([place]) [address] [place] [address] Hemoglobin (Bld) [Mass/Vol] 9.8 g/dL Low 13.0-17.0 [facility] Comment on above: Performed By: #### L [id number] #### [facility] ([facility] [address] [place] [address] Hematocrit (Bld) [Volume fraction] 30.2 % Low 39.0-55.0 [facility] Comment on above: Performed By: #### L [id number] ####[facility] ([facility])[address] [place] [address] Hemoglobin (Bld) [Mass/Vol] 9.9 g/dL Low 13.0-17.0 [facility] Comment on above: Performed By: #### L [id number] ####[facility] ([facility])[address] [place] [address] POCT GLUCOSE METER UNSOLICIT ED RESULTSon 09-10-2024 Glucose [Mass/Vol] 201 mg/dL High 70-105 [facility] Comment on above: Order Comment: Waive d Testing in the ED is performed under the ED CLIA certificate #[id number]. Result Comment: [email or web address] Performed By: #### L [id number] #### [facility] ([facility]) [address] [place] [address] Glucose [Mass/Vol] 168 mg/dL High 70-105 [facility] Comment on above: Order Comment: Waive d Testing in the ED is performed under the ED CLIA certificate #[id number]. Result Comment: lenora [email or web address] Performed By: #### L [id number] ####[facility] ([facility])[address] [place] [address] 30on 09-09-2024 30 The patient is Moderately Stable - Low risk of patient condition declining or worsening The patient's goals for the shift include comfort The clinical goals for the shift include VSS Problem: Pain - Adult Goal: Verbalizes/displays adequate comfort level or baseline comfort level Outcome: Progressing Flowsheets (Taken 09/09/20242053) Verbalizes/displays adequate comfort level or baseline comfort level: Administer analgesics based on type and severity of pain and evaluate response Encourage patient to monitor pain and request assistance Consider cultural and social influences on pain and pain management Assess pain using appropriate pain scale Implement non-pharmacological measures as appropriate and evaluate response Notify Licensed Independent Practitioner if interventions unsuccessful or patient reports new pain Problem: Safety - Adult Goal: Free from fall injury Outcome: Progressing Flowsheets (Taken 09/09/20242053) Free from fall injury: Assess patient frequently for physical needs Stollings fall precautions as indicated by assessment Instruct patient to call for assistance with activity based on assessment Consider OT/PT consult to assist with strengthening/mobility Identify cognitive and physical deficits and behaviors that affect risk of falls Educate patient/family on patient safety, including physical limitations Modify environment to reduce risk of injury Problem: Discharge Planning Goal: Discharge to home or other facility with appropriate resources Outcome: Progressing Flowsheets (Taken 09/09/20242053) Discharge to home or other facility with appropriate resources: Identify barriers to discharge with patient and caregiver Identify discharge learning needs (meds, wound care, etc) Refer to discharge planning if patient needs post-hospital services based on physician order or complex needs related to functional status, cognitive ability or social support system Arrange for needed discharge resources and transportation as appropriate Arrange for interpreters to assist at discharge as needed Problem: Chronic Conditions and Co-morbidities Goal: Patient's chronic conditions and co-morbidity symptoms are monitored and maintained or improved Outcome: Progressing Flowsheets (Taken 09/09/20242053) Care Plan - Patient's Chronic Conditions and Co-Morbidity Symptoms are Monitored and Maintained or Improved: Monitor and assess patient's chronic conditions and comorbid symptoms for stability, deterioration, or improvement Update acute care plan with appropriate goals if chronic or comorbid symptoms are exacerbated and prevent overall improvement and discharge Collaborate with multidisciplinary team to address chronic and comorbid conditions and prevent exacerbation or deterioration Normal [facility] BASIC METABOLIC PANELon 11-2 Anion gap [Moles/Vol] 16 mmol/L Normal 7-20 [facility] Comment on above: Performed By: #### L [id number] #### [facility] ([facility]) [address] [place] [address] Calcium [Mass/Vol] 8.8 mg/dL Normal 8.6-10.3 [facility] Comment on above: Performed By: #### L [id number] #### [facility] ([facility]) [address] [place] [address] Chloride [Moles/Vol] 104 mmol/L Normal 98-107 [facility] Comment on above: Performed By: #### L [id number] #### [facility] ([facility]) [address] [place] [address] CO2 [Moles/Vol] 20 mmol/L Low 21-31 [facility] Comment on above: Performed By: #### L [id number] #### [facility] ([facility]) [address] [place] [address] Creatinine [Mass/Vol] 1.21 mg/dL Normal 0.70-1.30 [facility] Comment on above: Performed By: #### L [id number] #### [facility] ([facility]) [address] [place] [address] GLOMERULAR FILTRATION RATE ML/MIN/1.73 SQ M.PREDICTED 66.9 mL/min/1.73m*2 Normal >60.[address] [facility] Comment on above: Result Comment: The [facility]???s estimated glomerular filtration rate (eGFR) will no longer include consideration of race in its calculation. The National Kidney Foundation???s eGFR Task Force developed new recommendations for the estimation of the glomerular filtration rate in the [place] They recommend immediate implementation of the new equation refit without the race variable in all laboratories because the calculation does not include race. In addition to not including race in the calculation and reporting, it included diversity in its development, and has acceptable performance characteristics and potential consequences that do not disproportionately affect any one group of individuals. Performed By: #### L [id number] #### [facility] ([place]) [address] [place] [address] Glucose [Mass/Vol] 179 mg/dL High 70-100 [facility] Comment on above: Performed By: #### L [id number] #### [facility] ([place]) [address] [place] [address] Potassium [Moles/Vol] 4.7 mmol/L Normal 3.5-5.1 [facility] Comment on above: Performed By: #### L [id number] #### [facility] ([place]) [address] [place] [address] Sodium [Moles/Vol] 135 mmol/L Low 136-145 [facility] Comment on above: Performed By: #### L [id number] #### [facility] ([place]) [address] [place] [address] Urea nitrogen [Mass/Vol] 24 mg/dL Normal 7-25 [facility] Comment on above: Performed By: #### L [id number] #### [facility] ([place]) [address] [place] [address] UREA NITROGEN/CREATININE (MASS RATIO) IN SER/PLAS 19.8 Normal [facility] Comment on above: Performed By: #### L [id number] #### [facility] ([place]) [address] [place] [address] CTA ABDOMEN PELVIS W IV CONT Ariana 09-09-2024 CTA ABDOMEN PELVIS W IV CONTRAST CTA ABDOMEN PELVIS W IV CONTRAST 09/10/2024 12:00 AM CLINICAL INDICATIONS: Left femoral/groin hematoma following left femoral vein access on 09/09/2024 TECHNIQUE: Multidetector CT angiography axial slices of the abdomen and pelvis were obtained with IV contrast. 100 mL of Omnipaque 350 given. Arterial phase and delayed images were obtained. Multiplanar reformats, MIP, and volume rendered 3-D images were generated on a separate workstation and reviewed to further define anatomy and possible pathology. All CT scans at this facility use dose modulation, iterative reconstruction, and/or weight based dosing when appropriate to reduce radiation dose to as low as reasonably achievable. COMPARISON: None. FINDINGS: VASCULATURE: Atherosclerotic calcifications of the abdominal aorta and common iliac arteries without aneurysmal dilatation. Atherosclerotic calcifications at the origin of the celiac trunk without hemodynamically significant stenosis or occlusion. Atherosclerotic calcifications at the origin of the SMA contribute to moderate stenosis without evidence of high-grade occlusion. The renal veins and FAYE are patent. The left external iliac, left common femoral, and profunda branches of the left common femoral artery appear patent. The superficial left femoral artery is not opacified. Fluid collection with hematocrit level in the left groin anterior to the left femoral vessels which measures approximately 9.9 x 9.2 x 3.8 cm. There is adjacent subcutaneous fat stranding and skin thickening in the left anterior thigh and left groin soft tissues. No definite pseudoaneurysm or active extravasation. LOWER CHEST: Visualized lung bases are clear. LIVER AND BILIARY: Noncirrhotic liver morphology. The gallbladder is nondistended. PANCREAS: Unremarkable. SPLEEN: Not enlarged. ADRENALS: Symmetric. KIDNEYS, URETERS, AND BLADDER: Symmetric enhancement of bilateral kidneys. Simple cysts in bilateral kidneys do not require additional imaging follow-up. No renal collecting system dilatation. Mcneill catheter in place within the urinary bladder with small amount of nondependent air seen compatible with recent instrumentation. GI TRACT AND PERITONEUM: The bowel is nondilated. The appendix and terminal ileum appear unremarkable. LYMPH NODES: No lymphadenopathy noted or pelvis by strict size or morphologic criteria. REPRODUCTIVE ORGANS: No acute findings. 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 No aggressive or suspicious osseous lesions. IMPRESSION: The superficial left femoral artery is not opacified. Concurrently performed CT angiogram of the left lower extremity dictated separately. Hematoma superficial to the left femoral vessels in the left groin measures up to 9.9 cm. No evidence of pseudoaneurysm or active contrast extravasation. Adjacent inflammatory changes in the subcutaneous fat of the left groin and left anterior thigh. No evidence of acute abnormality in the abdomen or pelvis. Mcneill catheter in place within the urinary bladder. Approved by:Marcio Horton09/10/2024 1:25 AM. I, Chris De Leon,have reviewed the image(s) and agree with the findings in this report. Electronically signed: Chris De Leon. [facility] CTA LOWER EXTREMITY LEFT W I V CONTRASTon 09-09-2024 CTA LOWER EXTREMITY LEFT W IV CONTRAST INDICATION: Left femoral access, hematoma, bleeding COMPARISON: None TECHNIQUE: Multidetector CT Angiogram performed with IV contrast through the bilateral lower extremities to the knees. 3-D Maximum intensity projection reconstructions constructed under concurrent physician supervision on a independent workstation. 3 D images obtained to improve visualization of vascular detail. All CT scans at this facility use dose modulation, iterative reconstruction, and/or weight based dosing when appropriate to reduce radiation dose to as low as reasonably achievable. FINDINGS: VASCULAR STRUCTURES: Concurrently performed CT angiogram of the abdomen and pelvis was dictated separately. Aorta: Atherosclerotic calcifications at the distal aorta. The right common and external iliac arteries are patent. The right common femoral, profunda femoral, superficial femoral, and popliteal arteries are patent. L. common iliac artery: Atherosclerotic calcifications, patent. L. internal iliac artery: Atherosclerotic calcifications, patent. L. external iliac artery: Atherosclerotic calcifications, patent. Left lower extremity: Common femoral artery: Atherosclerotic calcifications, patent. Profunda femoris: Patent. Superficial femoral artery: Not opacified proximally, reconstituted distally from collateral branches. Popliteal artery: Patent. Tibioperoneal trunk: Patent. Fluid collection with hematocrit level in the left groin anterior to the left femoral vessels which measures approximately 9.9 x 9.2 x 3.8 cm. There is adjacent subcutaneous fat stranding and skin thickening in the left anterior thigh and left groin soft tissues. No definite pseudoaneurysm or active extravasation. NON-VASCULAR STRUCTURES: URETERS AND BLADDER: Catheter in place within the urinary bladder with small amount of nondependent air. GI TRACT AND PERITONEUM: Unremarkable. LYMPH NODES: No lymphadenopathy by size or morphologic criteria. REPRODUCTIVE ORGANS: No acute findings. MUSCULOSKELETAL: Bilateral hip and knee osteoarthrosis. No aggressive or suspicious osseous lesion. IMPRESSION: Nonopacification of the heavily calcified proximal left superficial femoral artery with reconstitution from collaterals distally. The left popliteal artery is patent. Left groin hematoma measures up to 9.9 cm adjacent inflammatory changes in the left groin and left anterior thigh. No definite pseudoaneurysm or extra-axial mass lesion identified. Approved by:Marcio Horton09/10/2024 1:31 AM. I, Chris De Leon,have reviewed the image(s) and agree with the findings in this report. Electronically signed: Chris De Leon. Normal [facility] HEMOGLOBIN AND HEMATOCRIT, B Vickie 09-09-2024 Hematocrit (Bld) [Volume fraction] 34.7 % Low 39.0-55.0 [facility] Comment on above: Performed By: #### L [id number] #### [facility] ([facility]) [address] [place] [address] Hemoglobin (Bld) [Mass/Vol] 11.7 g/dL Low 13.0-17.0 [facility] Comment on above: Performed By: #### L [id number] #### [facility] ([facility]) [address] [place] [address] on 09-09-2024 [facility] Electrophysiology Consult Note Reason for [...] any shortness of breath, chest pain, fatigue. [id number] at least 2 for hypertension, DM 2, [...] Past Medical History: Diagnosis Date Abnormal ECG Afib (CMS/HCC) Arrhythmia Arthritis Atrial fibrillation (CMS/HCC) Diabetes mellitus (CMS/HCC) type 2 Hyperlipidemia Hypertension Joint pain Severe acute respiratory syndrome 05/2022 Sleep apnea PSH: Past Surgical History: Procedure Laterality Date ABLATION OF DYSRHYTHMIC FOCUS CARDIOVERSION 04/12/2024 CATARACT EXTRACTION COLONOSCOPY 2022 ESOPHAGOSCOPY / EGD OTHER SURGICAL HISTORY jason knee surgery ROTATOR CUFF REPAIR SH: Social Determinants of Health Tobacco Use: High Risk (09/09/2024) Patient History Smoking Tobacco Use: Some Days Smokeless Tobacco Use: Never Passive Exposure: Current Alcohol Use: Not on file Financial Resource Strain: Low Risk (09/09/2024) Overall Financial Resource Strain (CARDIA) Difficulty of Paying Living Expenses: Not hard at all Food Insecurity: No Food Insecurity (09/09/2024) Hunger Vital Sign Worried About Running Out of Food in the Last Year: Never true Ran Out of Food in the Last Year: Not on file Transportation Needs: No Transportation Needs (09/09/2024) Transportation Lack of Transportation (Medical): No Lack of Transportation (Non-Medical): Not on file Physical Activity: Not on file Stress: Not on file Social Connections: Not on file Intimate Partner Violence: Not At Risk (09/09/2024) Humiliation, Afraid, Rape, and Kick questionnaire Fear of Current or Ex-Partner: No Emotionally Abused: No Physically Abused: No Sexually Abused: No Depression: Not at risk (09/07/2024) PHQ-2 PHQ-2 Score: 0 Housing Stability: Low Risk (09/09/2024) Housing Stability Vital Sign Unable to Pay for Housing in the Last Year: No Number of Times Moved in the Last Year: Not on file Homeless in the Last Year: No Utilities: Not At Risk (09/09/2024) [facility] Utilities Threatened with loss of utilities: No Health Literacy: Not on file Allergies: No Known Allergies Weight: 143kg Visit Vitals BP 157/73 Pulse 64 Temp 37.5 ???C (99.5 ???F) (Temporal) Resp 17 Ht 1.778 m (5' 10 ) Wt (!) 151 kg (332 lb 14.3 oz) SpO2 98% BMI 47.77 kg/m??? Smoking Status Some Days BSA 2.73 m??? Meds: No current facility-administered medications on [...] 1 tablet by mouth in the morning. co-enzyme Q-10 50 mg capsule Take 50 mg by mouth two times daily. furosemide (Lasix) 40 mg tablet Take 1 tablet by mouth every other day. Pt taking every other day insulin glargine (Lantus) 100 unit/mL injection vial Inject 50 Units under the skin at bedtime. lisinopril 40 [...] 0.5 mg(2 mg/1.5 mL) pen injector Inject 1 mg under the skin 1 (one) time per week. On Mondays ROS: Review of Systems Cardiovascular: Positive for palpitations. Musculoskeletal: Positive for arthritis, back pain and joint pain. All other systems reviewed and are negative. Physical Exam: Constitutional General Appearance: well-nourished, well-developed, appears stated age Level of Distress: comfortable Psychiatric Mental Status: alert, normal affect Orientation: oriented to time, pl (more content not included)... Normal [facility] NURSNOTEon 09-09-2024 NURSNOTE Around 2109 check writer salesperson paged cardiology to notify him that pt groin was getting increasingly larger, starting to swell and bruise more. Site was becoming firm. opto mechanical technician said to take a picture of pt groin and attach it to pt chart, also to hold pressure for 15 minutes and that he would notify Dr. Lugo. Provider called check writer salesperson back to notify him that he was going to get vascular surgery involved. Around 2139 Vascular sx. PA came to bedside to assess pt. He said he would call Dr. Mcdonald and figure out a plan. Around 2199, PA told check writer salesperson that Dr. Mcdonald said to continue holding pressure until hematoma goes down. Around 2229, sharepoint application developer came to bedside to assess pt groin site. Fellow ordered STAT H&H, STAT CTA of abdomen and left lower extremity, and 0.5 mg of dilaudid q3 for patient's pain. Sheriff'S Sergeant and other RN's continuing to alternate holding pressure on groin site. Normal [facility] NURSNOTE Pt came from EP lab from getting Afib Ablation. Left groin site was bruised. Sheriff'S Sergeant called somebody from EP lab to come take a look at it when patient first got to unit. It was soft and of no concern. Now it is bruised and hardened at the site. Sheriff'S Sergeant called someone from EP lab to take a look. 2 EP lab nurses came to hold pressure. 10 minutes later another staff member came up to assist. The area has softened and assistant shift supervisor nurser has been instructed to check back in 10 minutes to make sure it has not hardened. Normal [facility] Orders Onlyon 09-09-2024 Orders Only [id number] Rosalind Rush 1960 M Date Provider Department Center 09/09/20241986-[facility] Family History Problem Relation Age of Onset Cancer Mother Heart disease Mother Cancer Father Family Status - Relation Status Age at Mother Father [facility] POCT GLUCOSE METER UNSOLICIT ED RESULTSon 09-09-2024 Glucose [Mass/Vol] 162 mg/dL High 70-105 [facility] Comment on above: Order Comment: Waive d Testing in the ED is performed under the ED CLIA certificate #[id number]. Result Comment: [email or web address] Performed By: #### L [id number] #### [facility] ([place]) [address] [place] [address] Glucose [Mass/Vol] 146 mg/dL High 70-105 [facility] Comment on above: Order Comment: Waive d Testing in the ED is performed under the ED CLIA certificate #[id number]. Result Comment: dspe ars Performed By: #### L [id number] ####[facility] ([place])[address] [place] [address] Glucose [Mass/Vol] 126 mg/dL High 70-105 [facility] Comment on above: Order Comment: Waive d Testing in the ED is performed under the ED CLIA certificate #[id number]. Result Comment: acle ment Performed By: #### L [id number] #### [facility] ([place]) [address] [place] [address] PROTIME-INRon 09-09-2024 INR IN PPP BY COAGULATION ASSAY 1.16 High 0.90-1.10 [facility] Comment on above: Result Comment: ACCC P RECOMMENDED INR FOR WARFARIN THERAPY CONDITION INR PROPHYLAXIS OF VENOUS THROMBOSIS 2-3 (HIGH-RISK SURGERY) TREATMENT OF VENOUS THROMBOSIS 2-3 TREATMENT OF PULMONARY EMBOLISM 2-3 PREVENTION OF SYSTEMIC EMBOLISM: 2-3 ACUTE MYOCARDIAL INFARCTION TISSUE HEART VALVES VALVULAR HEART DISEASE ATRIAL FIBRILLATION RECURRENT SYSTEMIC EMBOLISM MECHANICAL HEART VALVE 2.5-3.5 FROM: ORAL ANTICOAGULANTS. MECHANISM OF ACTION, CLINICAL EFFECTIVENESS, AND OPTIMAL THERAPEUTIC RANGE. CHEST 1995;108:231S-246S. Performed By: #### L [id number] #### [facility] ([facility]) [address] [place] [address] PROTHROMBIN TIME (PT) IN PPP BY COAGULATION ASSAY 14.8 Seconds Normal 12.3-14.8 [facility] Comment on above: Performed By: #### L [id number] #### [facility] ([facility]) [address] [place] [address] Prep for Procedureon 024 Prep for Procedure [id number] AdriCaneloclovis rajiv Troy 1960 M Date Provider Department Center 09/09/20241986-[facility] Family History Problem Relation Age of Onset Cancer Mother Heart disease Mother Cancer Father Family Status - Relation Status Age at Mother Father Normal [facility] [id number] 09-01-2024 [id number] SURGERY DATE: 4 Medications to take Morning of surgery: Amiodarone Carvedilol Amlodipine Medications to hold Morning of surgery: Hold Xarelto 24 hrs Hold Ozempic 7 days prior to Hold all other meds on 09/09/24 am Medications to hold 5-7 days prior to surgery: NSAIDs: Vitamins and Supplements: IF YOU ARE GOING HOME AFTER YOUR SURGERY OR PROCEDURE, FOR YOUR SAFETY, YOUR SURGERY WILL BE CANCELLED IF BOTH OF THE FOLLOWING ARE NOT AVAILABLE: An adult solid waste truck driver over the age of 18, that can receive information about your care after surgery, and drive you home. A responsible adult to stay with you for 24 hours in case of an emergency. Can be same as above. The highest risk of complications is within the first 24 hours after sedation/anesthesia. Nothing to eat or drink after midnight the night before surgery. This includes gum, candy, mints, and lozenges. No alcohol, marijuana, or tobacco products including vaping for 24 hours. Please brush your teeth; don't swallow the toothpaste or water. If you use dentures, wear them but do not use paste. Please leave any other removable dental hardware at home. Do not put in contact lenses. Do not wear perfume, make-up, nail indonesian, or lotions on the day of your surgery or procedure. Follow skin-prep/wipe instructions as below if required. Bring with you: *Insurance card *Photo ID *Medication list *Co-pay for visit/prescriptions If applicable: *Rescue inhalers *Green bracelet from lab *CPAP or BiPAP machine, if staying overnight *Any braces, splints, or equipment ordered preoperatively *Remote controls for implanted devices Leave at home: *Purse/Wallet/[employer]- unless needed for co-pay *Cell phone (can leave with family/friend or place in locker if needed) *Jewelry (including piercings and wedding bands) *If not possible, ask the person who is waiting with you to keep them Children under the age of 12 will not be allowed into patient care areas. We will call you between 3pm and 4pm the day before your surgery to give you an arrival time. If you do not receive this call, have any questions, or need to make any changes, please call [phone]. Notify your surgeon if you develop any illness such as a cold, cough, fever, sore throat or vomiting between now and your surgery. Thank you for entrusting us with your care. [facility] Surgical Services Team [facility] [phone] Notified Gallo [phone] Fatima's clinic that Patient don't have solid waste truck driver to go home after surgery, but he will have a solid waste truck driver next day. He will be admitted per Gallo if no solid waste truck driver at same day. Normal [facility] Prep for Procedureon 024 Prep for Procedure [id number] Rosalind Rush 1960 M Date Provider Department Center 07/28/2024 Aniket-GALLO [facility] V[facility] LAB OR HeartVAS Family History Problem Relation Age of Onset Cancer Mother Heart disease Mother Cancer Father Family Status - Relation Status Age at Mother Father Normal [facility] Office Visiton 07-27-2024 Follow-up visit [id number] Rosalind Rush 1960 M Date Provider Department Center 07/27/2024 241-FELIPE FATIMA [facility] Family History Problem Relation Age of Onset Cancer Mother Heart disease Mother Cancer Father Family Status - Relation Status Age at Mother Father Level of Service:54373 MT OFFICE/OUTPATIENT ESTABLISHED LOW MDM 20 MIN Normal [facility] Glucose mean value [Mass/vol ume] in Blood Estimated from glycated hemoglobinon 06-23-2024 Average glucose Estimated from glycated hemoglobin (Bld) [Mass/Vol] 114 mg/dL [facility] Laboratory - Hematology and Cell countson 06-23-2024 HbA1c (Bld) [Mass fraction] 5.6 % 4.5-6.2 [facility] Comment on above: ADA RECOMMENDED LIMI T 4.0 - 6.0ADA THERAPEUTIC TARGET < 7.0ACTION SUGGESTED> 7.0 Office Visiton 04-21-2024 Follow-up visit [id number] Rosalind Rush Woodrow 1960 M Date Provider Department Center 04/21/2024 [facility] Family History Problem Relation Age of Onset Cancer Mother Heart disease Mother Cancer Father Family Status - Relation Status Age at Mother Father Level of Service:51414 MT POSTOP FOLLOW UP VISIT RELATED TO ORIGINAL PX Normal [facility] HPon 03-24-2024 [facility] Electrophysiology Consult Note Reason for [...] any shortness of breath, chest pain, fatigue. [id number] at least 2 for hypertension, DM 2, [...] on file Intimate Partner Violence: Unknown (12/11/2023) OR Safety & Environment Fear of Current or [...] Neurologic Gait (more content not included)... Normal [facility] NURSNOTEon 03-24-2024 NURSNOTE RN educated pt on d/ c instructions. RN encouraged pt to voice any questions or concerns. Pt verbalizes no questions or concerns at this time. Pt was wheeled off of unit with all of belongings. [facility] Orders Onlyon 03-16-2024 Orders Only [id number] Rosalind Rush 1960 M Date Provider Department Center 03/16/2024 CONNIE [facility]RNE [facility] HeartVAS Family History Problem Relation Age of Onset Cancer Mother Heart disease Mother Cancer Father Family Status - Relation Status Age at Mother Father Normal [facility] Office Visiton 01-20-2024 Follow-up visit [id number] Rosalind Rush rajiv [place] 1960 Date Provider Department Center 01/20/2024 Freddy-FELIPE [facility]A [facility] Family History Problem Relation Age of Onset Cancer Mother Heart disease Mother Cancer Father Family Status - Relation Status Age at Mother Father Level of Service:04728 MT OFFICE/OUTPATIENT NEW MODERATE MDM 45 MINUTES Reason for Visit and Comments: Follow-up [143504] Normal [facility] Orders Onlyon 01-20-2024 Orders Only [id number] Rosalind Rush rajiv [place] 1960 Provider Department Center 01/20/2024 FATEMEH RODAS [facility] Family History Problem Relation Age of Onset Cancer Mother Heart disease Mother Cancer Father Family Status - Relation Status Age at Mother Father Normal [facility] 29on 12-17-2023 29 Addended by: BETSY PABLO on: 12/17/2023 10:20 AM Modules accepted: Orders Normal [facility] Office Visiton 12-17-2023 Follow-up visit [id number] Rosalind Rush rajiv [place] 1960 Provider Department Center 12/17/2023 KOLBY ROSS [facility] Family History Problem Relation Age of Onset Cancer Mother Heart disease Mother Cancer Father Family Status - Relation Status Age at Mother Father Level of Service:59701 MT OFFICE/OUTPATIENT NEW MODERATE MDM 45 MINUTES Normal [facility] ECH echo transthoracicon ECH echo transthoracic [facility] [place] [address] Echocardiogram Signed Patient: Salomón Rush MR#: [id number] 90 : 1960 Acct:[id number] Age/Sex: 62 / M ADM Date: 10/17/23 Loc: Room: Type: [facility] Attending Dr: Delonte Tejeda DO Ordering Provider: [...] V1 max: 157.5 cm/sec (0.7-1.7m/s)MV E max azalea: 103.0 cm/sec(0.8-1.3m/s) MV A max azalea: 34.6 cm/sec(0.0-0.0m/s) MV E/A: 3.0 (<1.5) MMode/2D Measurements Calculations RVDd: 4.5 cm FS: 35.4 % Ao root area: LVOT diam: 1.7 cm TAPSE: 1.9 cm EDV(Teich): 5.5 cm2 LVOT area: 2.2 cm2 RV S Azalea: 123.7 ml 14.4 cm/sec ESV(Teich): 44.0 ml [...] LV V1 VTI: 30.6 cm Transcribed By: OXANA Performed At: 10/17/23 0746 Signed By: Ortiz Singletary MD 10/17/23 1304 [facility] XR hip LT min 2V(w/wo pelvis )*on 06-05-2023 XR hip LT min 2V(w/wo pelvis)* [facility] [place] [address] XRay Report Signed Patient: Salomón Rush MR#: [id number] 90 : 1960 Acct:[id number] Age/Sex: 62 / M ADM Date: 06/05/23 Loc: [facility] Room: Type: [facility] Attending Dr: Bonny Raymundo APRN Copies to: [...] Calvin Thibodeaux M.D.06/05/2023 12:25 PM Dictation Location: [facility] Transcribed By: NORMA 06/05/23 1225 Dictated By: Calvin Thibodeaux II, MD 06/05/23 1223 Signed By: 06/05/23 1225 Normal [facility] XR hip LT min 2V(w/wo pelvis)* [facility] [employer] Other XR hip LT min 2V(w/wo pelvis)* [facility] [place] [employer] Other XR hip LT min 2V(w/wo pelvis)* [address] [place] [address] [employer] Other XR hip LT min 2V(w/wo pelvis)* [place] [address] [employer] Other XR hip LT min 2V(w/wo pelvis)* XRay Report [employer] Other XR hip LT min 2V(w/wo pelvis)* Signed [employer] Other XR hip LT min 2V(w/wo pelvis)* Patient: Salomón Rush MR#: [id number] [employer] Other XR hip LT min 2V(w/wo pelvis)* 90 [employer] Other XR hip LT min 2V(w/wo pelvis)* : 1960 Acct:[id number] [employer] Other XR hip LT min 2V(w/wo pelvis)* Age/Sex: 62 / M ADM Date: 06/05/23 [employer] Other XR hip LT min 2V(w/wo pelvis)* Loc: XDUCLY Room: Type: REG CLI [employer] Other XR hip LT min 2V(w/wo pelvis)* Attending Dr: Bonny Raymundo [facility] Other XR hip LT min 2V(w/wo pelvis)* Copies to: Bonny Raymundo APRN [employer] Other XR hip LT min 2V(w/wo pelvis)* Ordering Provider: Bonny Raymundo APRN [employer] Other XR hip LT min 2V(w/wo pelvis)* Date of Service: 06/05/23 [employer] Other XR hip LT min 2V(w/wo pelvis)* XR/XR hip LT min 2V(w/wo pelvis)*: Left hip pain [employer] Other XR hip LT min 2V(w/wo pelvis)* XR hip LT min 2V(w/wo pelvis)* 06/05/2023 11:57 AM [employer] Other XR hip LT min 2V(w/wo pelvis)* SIGNS AND SYMPTOMS: Left hip pain [employer] Other XR hip LT min 2V(w/wo pelvis)* PROTOCOL: Frontal radiograph of the pelvis with frontal and frog-leg views of the left hip [employer] Other XR hip LT min 2V(w/wo pelvis)* COMPARISON: None [employer] Other XR hip LT min 2V(w/wo pelvis)* FINDINGS: [employer] Other XR hip LT min 2V(w/wo pelvis)* There is mild narrowing of the joint spaces of the hips. Degenerative changes are noted in the [employer] Other XR hip LT min 2V(w/wo pelvis)* lumbar spine and sacroiliac joints. The bony ring of the pelvis is intact. There is no fracture or [employer] Other XR hip LT min 2V(w/wo pelvis)* dislocation. Vascular calcifications are present. [employer] Other XR hip LT min 2V(w/wo pelvis)* XR/XR hip LT min 2V(w/wo pelvis)* [employer] Other XR hip LT min 2V(w/wo pelvis)* IMPRESSION: [employer] Other XR hip LT min 2V(w/wo pelvis)* No fracture or dislocation. 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 [employer] Other XR hip LT min 2V(w/wo pelvis)* Impression dictated by: Calvin Thibodeaux M.D.06/05/2023 12:25 PM [employer] Other XR hip LT min 2V(w/wo pelvis)* Dictation Location: [place] [address] [employer] Other XR hip LT min 2V(w/wo pelvis)* Transcribed By: NORMA 06/05/23 [facility] [employer] Other XR hip LT min 2V(w/wo pelvis)* Dictated By: Calvin Thibodeaux II, MD 06/05/23 [facility] [employer] Other XR hip LT min 2V(w/wo pelvis)* Signed By: [employer] Other XR hip LT min 2V(w/wo pelvis)* 06/05/23 [facility] [employer] Other CBC AUTO DIFFon 02-21-2023 BASO # 0.1 103/ul Normal 0.0-0.1 [facility] Comment on above: Performed By: #### L IPID, T4, TSH, CMP #### [facility] [address] [place] [address] Dr. Rena Barone Basophils/100 WBC (Bld) 0.4 % Normal 0.2-2.0 [facility] Comment on above: Performed By: #### L IPID, T4, TSH, CMP #### [facility] [address] [place] [address] Dr. Rena Barone EO # 0.4 103/ul Normal 0.0-0.7 [facility] Comment on above: Performed By: #### L IPID, T4, TSH, CMP #### [facility] [address] [place] [address] Dr. Rena Barone Eosinophils/100 WBC (Bld) 3.1 % Normal 0.9-7.0 [facility] Comment on above: Performed By: #### L IPID, T4, TSH, CMP #### [facility] [address] [place] [address] Dr. Rena Barone Erythrocyte distribution width (RBC) [Ratio] 12.5 % Normal 11.0-15.0 [facility] Comment on above: Performed By: #### L IPID, T4, TSH, CMP #### [facility] [address] [place] [address] Dr. Rena Barone Hematocrit (Bld) [Volume fraction] 38.9 % Critically low 42.0-54.0 [facility] Comment on above: Performed By: #### L IPID, T4, TSH, CMP #### [facility] [address] [place] [address] Dr. Rena Barone Hemoglobin (Bld) [Mass/Vol] 13.2 g/dL Critically low 14.0-18.0 [facility] Comment on above: Performed By: #### L IPID, T4, TSH, CMP #### [facility] [address] [place] [address] Dr. Rena Barone IG # 0.05 10e3/ul Critically high 0.00-0.03 [facility] Comment on above: Performed By: #### L IPID, T4, TSH, CMP #### [facility] [address] [place] [address] Dr. Rena Barone IG % 0.4 % Normal 0.0-0.5 [facility] Comment on above: Performed By: #### L IPID, T4, TSH, CMP #### [facility] [address] [place] [address] Dr. Rena Barone LYMPH # 3.2 103/ul Normal 1.2-3.8 [facility] Comment on above: Performed By: #### L IPID, T4, TSH, CMP #### [facility] [address] [place] [address] Dr. Rena Barone Lymphocytes/100 WBC (Bld) 28.6 % Normal 20.5-60.0 [facility] Comment on above: Performed By: #### L IPID, T4, TSH, CMP #### [facility] [address] [place] [address] Dr. Rena Barone MANUAL DIFF REQ NO Normal [facility] Comment on above: Performed By: #### L IPID, T4, TSH, CMP #### [facility] [address] [place] [address] Dr. Rena Barone MCH (RBC) [Entitic mass] 33.7 pg Normal 25.9-34.0 [facility] Comment on above: Performed By: #### L IPID, T4, TSH, CMP #### [facility] [address] [place] [address] Dr. Rena Barone MCHC (RBC) [Mass/Vol] 33.9 g/dL Normal 29.9-35.2 [facility] Comment on above: Performed By: #### L IPID, T4, TSH, CMP #### [facility] [address] [place] [address] Dr. Rena Barone MCV (RBC) [Entitic vol] 99.2 fL Critically high 80.0-94.0 [facility] Comment on above: Performed By: #### L IPID, T4, TSH, CMP #### [facility] [address] [place] [address] Dr. Rena Barone MONO # 1.0 103/ul Critically high 0.3-0.8 [facility] Comment on above: Performed By: #### L IPID, T4, TSH, CMP #### [facility] [address] [place] [address] Dr. Rena Barone Monocytes/100 WBC (Bld) 8.8 % Normal 1.7-12.0 [facility] Comment on above: Performed By: #### L IPID, T4, TSH, CMP #### [facility] [address] [place] [address] Dr. Rena Barone NEUT # 6.6 103/ul Critically high 1.4-6.5 [facility] Comment on above: Performed By: #### L IPID, T4, TSH, CMP #### [facility] [address] [place] [address] Dr. Rena Barone Neutrophils/100 WBC (Bld) 58.7 % Normal 43.0-75.0 [facility] Comment on above: Performed By: #### L IPID, T4, TSH, CMP #### [facility] [address] [place] [address] Dr. Rena Barone Platelet mean volume (Bld) [Entitic vol] 11.2 fL Normal 9.5-13.5 [facility] Comment on above: Performed By: #### L IPID, T4, TSH, CMP #### [facility] [address] [place] [address] Dr. Rena Barone PLT 202 103/ul Normal 150-450 [facility] Comment on above: Performed By: #### L IPID, T4, TSH, CMP #### [facility] [address] [place] [address] Dr. Rena Barone RBC 3.92 106/ul Critically low 4.70-6.10 [facility] Comment on above: Performed By: #### L IPID, T4, TSH, CMP #### [facility] [address] [place] [address] Dr. Rena Barone WBC 11.3 103/ul Critically high 4.0-11.0 [facility] Comment on above: Performed By: #### L IPID, T4, TSH, CMP #### [facility] [address] [address] [address] Rena Barone LIPID PROFILEon 02-21-2023 CHOL-HDL RATIO NORM SEE BELOW Normal [facility] Comment on above: Result Comment: 3.3 - 4.4 LOW RISK 4.4 - 7.1 AVERAGE RISK 7.1 - 11.0 MODERATE RISK >11.0 HIGH RISK Performed By: #### L IPID, T4, TSH, CMP #### [facility] [address] [address] [address] Rena Barone Cholesterol [Mass/Vol] 127 mg/dL Normal <=200 [facility] Comment on above: Performed By: #### L IPID, T4, TSH, CMP #### [facility] [address] [address] [address] Rena Barone Cholesterol in HDL [Mass/Vol] 24 mg/dL Critically low 40-60 [facility] Comment on above: Performed By: #### L IPID, T4, TSH, CMP #### [facility] [address] [address] [address] Rena Barone Cholesterol in LDL [Mass/Vol] 58.4 mg/dL Normal [facility] Comment on above: Performed By: #### L IPID, T4, TSH, CMP #### [facility] [address] [address] [address] Rena Barone Cholesterol.total/C holesterol in HDL [Mass ratio] 5.3 {ratio} Normal [facility] Comment on above: Performed By: #### L IPID, T4, TSH, CMP #### [facility] [address] [address] [address] Rena Barone HDL NORMAL > or = 60 mg/dl - LO W CARDIOVASCULAR RISK <40 mg/dl - HIGH CARDIOVASCULAR RISK Normal [facility] Comment on above: Performed By: #### L IPID, T4, TSH, CMP #### [facility] [address] [address] [address] Rena Barone LDL CALC NORMAL SEE BELOW Normal [facility] Comment on above: Result Comment: <100 mg/dl OPTIMAL 100 - 129 mg/dl NEAR OR ABOVE OPTIMAL 130 - 159 mg/dl BORDERLINE HIGH 160 - 189 mg/dl HIGH >190 mg/dl VERY HIGH Performed By: #### L IPID, T4, TSH, CMP #### [facility] [address] [address] [address] Rena Barone Triglyceride [Mass/Vol] 223 mg/dL Critically high <=150 [facility] Comment on above: Performed By: #### L IPID, T4, TSH, CMP #### [facility] [address] [address] [address] Rena Barone VLDL CALC 44.6 mg/dL Normal [facility] Comment on above: Performed By: #### L IPID, T4, TSH, CMP #### [facility] [address] [address] [address] Rena Barone PROF 14(COMP METB)on 023 Albumin [Mass/Vol] 3.8 g/dL Normal 3.4-5.0 [facility] Comment on above: Performed By: #### L IPID, T4, TSH, CMP #### [facility] [address] [address] [address] Rena Barone Albumin/Globulin [Mass ratio] 0.9 {ratio} Normal [facility] Comment on above: Performed By: #### L IPID, T4, TSH, CMP #### [facility] [address] [address] [address] Rena Barone ALP [Catalytic activity/Vol] 99 U/L Normal 46-116 [facility] Comment on above: Performed By: #### L IPID, T4, TSH, CMP #### [facility] [address] [address] [address] Rena Barone ALT [Catalytic activity/Vol] 31 U/L Normal 16-63 [facility] Comment on above: Performed By: #### L IPID, T4, TSH, CMP #### [facility] [address] [address] [address] Rena Barone Anion gap [Moles/Vol] 10.3 mmol/L Normal [facility] Comment on above: Performed By: #### L IPID, T4, TSH, CMP #### [facility] [address] [address] [address] Rena Barone AST [Catalytic activity/Vol] 23 U/L Normal 15-37 [facility] Comment on above: Performed By: #### L IPID, T4, TSH, CMP #### [facility] [address] [place] [address] Dr. Rena Barone Bilirubin [Mass/Vol] 0.5 mg/dL Normal 0.2-1.0 [facility] Comment on above: Performed By: #### L IPID, T4, TSH, CMP #### [facility] [address] [place] [address] Dr. Rena Barone Calcium [Mass/Vol] 9.3 mg/dL Normal 8.5-10.1 [facility] Comment on above: Performed By: #### L IPID, T4, TSH, CMP #### [facility] [address] [place] [address] Dr. Rena Barone Chloride [Moles/Vol] 100 mmol/L Normal 98-107 [facility] Comment on above: Performed By: #### L IPID, T4, TSH, CMP #### [facility] [address] [place] [address] Dr. Rena Barone CO2 [Moles/Vol] 25.9 mmol/L Normal 21.0-32.0 [facility] Comment on above: Performed By: #### L IPID, T4, TSH, CMP #### [facility] [address] [place] [address] Dr. Rena Barone Creatinine [Mass/Vol] 1.34 mg/dL Critically high 0.70-1.30 [facility] Comment on above: Performed By: #### L IPID, T4, TSH, CMP #### [facility] [address] [place] [address] Dr. Rena Barone EGFR-AF TAJIK >60 Normal >=60 [facility] Comment on above: Performed By: #### L IPID, T4, TSH, CMP #### [facility] [address] [place] [address] Dr. Rena Barone EGFR-NON AF TAJIK 54 mL/min/1.73m2 Critically low >=60 [facility] Comment on above: Performed By: #### L IPID, T4, TSH, CMP #### [facility] [address] [place] [address] Dr. Rena Barone Globulin (S) [Mass/Vol] 4.1 g/dL Normal [facility] Comment on above: Performed By: #### L IPID, T4, TSH, CMP #### [facility] [address] [place] [address] Dr. Rena Barone Glucose [Mass/Vol] 108 mg/dL Critically high 74-[address] [facility] Comment on above: Performed By: #### L IPID, T4, TSH, CMP #### [facility] [address] [place] [address] Dr. Rena Barone Potassium [Moles/Vol] 4.2 mmol/L Normal 3.5-5.1 [facility] Comment on above: Performed By: #### L IPID, T4, TSH, CMP #### [facility] [address] [place] [address] Dr. Rena Barone Protein [Mass/Vol] 7.9 g/dL Normal 6.4-8.2 [facility] Comment on above: Performed By: #### L IPID, T4, TSH, CMP #### [facility] [address] [place] [address] Dr. Rena Barone Sodium [Moles/Vol] 132 mmol/L Critically low 136-145 [facility] Comment on above: Performed By: #### L IPID, T4, TSH, CMP #### [facility] [address] [place] [address] Dr. Rena Barone Urea nitrogen [Mass/Vol] 30.0 mg/dL Critically high 7.0-18.0 [facility] Comment on above: Performed By: #### L IPID, T4, TSH, CMP #### [facility] [address] [place] [address] Dr. Rena Barone Urea nitrogen/Creatinine [Mass ratio] 22.4 mg/mg Normal [facility] Comment on above: Performed By: #### L IPID, T4, TSH, CMP #### [facility] [address] [address] [address] Rena Barone T4on 02-21-2023 T4 [Mass/Vol] 5.20 ug/dL Normal 4.50-12.10 [facility] Comment on above: Performed By: #### L IPID, T4, TSH, CMP #### [facility] [address] [address] [address] Rena Barone TSHon 02-21-2023 TSH 2.379 uIU/mL Normal 0.358-3.740 [facility] Comment on above: Performed By: #### L IPID, T4, TSH, CMP #### [facility] [address] [address] [address] Rena Barone GLYCOHEMOGLOBIN A1Con 2022 ADA RECOMMENDATION SEE BELOW Normal [facility] Comment on above: Result Comment: ADA RECOMMENDED LIMIT 4.0 - 6.0 ADA THERAPEUTIC TARGET < 7.0 ACTION SUGGESTED > 7.0 Performed By: #### L IPID, T4, TSH, CMP #### [facility] [address] [address] [address] Rena Barone Glucose [Mass/Vol] 169 mg/dL Normal [facility] Comment on above: Performed By: #### L IPID, T4, TSH, CMP #### [facility] [address] [address] [address] Rena Barone HbA1c (Bld) [Mass fraction] 7.5 % Critically high 4.5-6.2 [facility] Comment on above: Performed By: #### L IPID, T4, TSH, CMP #### [facility] [address] [place] [address] Dr. Rena Barone Glucose Glucometer (BldC) [M ass/Vol]Ordered By: Deon Greene on 10-07-2022 Glucose [Mass/Vol] 170 mg/dL [facility] Comment on above: Random Glucose Refer ence Range is dependent on time and content of last meal. Glucose of more than 200 mg/dL in a nonstressed, ambulatory subject supports the diagnosis of Diabetes Mellitus. GLYCOHEMOGLOBIN A1Con 2021 ADA RECOMMENDATION SEE BELOW Normal [facility] Comment on above: Result Comment: ADA RECOMMENDED LIMIT 4.0 - 6.0 ADA THERAPEUTIC TARGET < 7.0 ACTION SUGGESTED > 7.0 Performed By: #### L IPID, T4, TSH, CMP #### [facility] [address] [address] [address] Rena Barone Glucose [Mass/Vol] 160 mg/dL Normal [facility] Comment on above: Performed By: #### L IPID, T4, TSH, CMP #### [facility] [address] [address] [address] Rena Barone HbA1c (Bld) [Mass fraction] 7.2 % Critically high 4.5-6.2 [facility] Comment on above: Performed By: #### L IPID, T4, TSH, CMP #### [facility] [address] [address] [address] Rena Barone Physician Referralon 022 Physician Referral [phone] [id number] Normal [facility] COVID Quick Testingon 2021 Result Positive [facility] Other METHYLMALONIC ACID (MMA)on 0 03-23-2022 Methylmalonic Acid, Serum 210 nmol/L Normal 0-378 [facility] Comment on above: Performed By: #### L IPID, T4, TSH, CMP #### [facility] [address] [address] [address] Rena Barone FOLATE ([facility])on 2 Folate 16.6 ng/mL Normal >3.0 [facility] Comment on above: Result Comment: A se rum folate concentration of less than 3.1 ng/mL is considered to represent clinical deficiency. Performed By: #### L IPID, T4, TSH, CMP #### [facility] [address] [place] [address] Dr. Rena Barone GLYCOHEMOGLOBIN A1Con 2021 ADA RECOMMENDATION SEE BELOW Normal [facility] Comment on above: Result Comment: ADA RECOMMENDED LIMIT 4.0 - 6.0 ADA THERAPEUTIC TARGET < 7.0 ACTION SUGGESTED > 7.0 Performed By: #### L IPID, T4, TSH, CMP #### [facility] [address] [place] [address] Dr. Rena Barone Glucose [Mass/Vol] 160 mg/dL Normal [facility] Comment on above: Performed By: #### L IPID, T4, TSH, CMP #### [facility] [address] [place] [address] Dr. Rena Barone HbA1c (Bld) [Mass fraction] 7.2 % Critically high 4.5-6.2 [facility] Comment on above: Performed By: #### L IPID, T4, TSH, CMP #### [facility] [address] [place] [address] Dr. Rena Barone RETICULOCYTEon 03-15-2022 RETIC 1.64 % Normal 0.60-3.10 [facility] Comment on above: Performed By: #### R ETIC #### [facility] [address] [place] [address] Dr. Rena Barone VITAMIN B12on 03-15-2022 Cobalamin (Vitamin B12) [Mass/Vol] 386.0 pg/mL Normal 193.0-986.0 [facility] Comment on above: Performed By: #### L IPID, T4, TSH, CMP #### [facility] [address] [place] [address] Dr. Rena Barone CBC AUTO DIFFon 02-26-2022 BASO # 0.0 103/ul Normal 0.0-0.1 [facility] Comment on above: Performed By: #### L IPID, T4, TSH, CMP #### [facility] [address] [place] [address] Dr. Rena Barone Basophils/100 WBC (Bld) 0.3 % Normal 0.2-2.0 [facility] Comment on above: Performed By: #### L IPID, T4, TSH, CMP #### [facility] [address] [place] [address] Dr. Rena Barone EO # 0.2 103/ul Normal 0.0-0.7 [facility] Comment on above: Performed By: #### L IPID, T4, TSH, CMP #### [facility] [address] [place] [address] Dr. Rena Barone Eosinophils/100 WBC (Bld) 2.0 % Normal 0.9-7.0 [facility] Comment on above: Performed By: #### L IPID, T4, TSH, CMP #### [facility] [address] [place] [address] Dr. Rena Barone Erythrocyte distribution width (RBC) [Ratio] 12.9 % Normal 11.0-15.0 [facility] Comment on above: Performed By: #### L IPID, T4, TSH, CMP #### [facility] [address] [place] [address] Dr. Rena Barone Hematocrit (Bld) [Volume fraction] 38.1 % Critically low 42.0-54.0 [facility] Comment on above: Performed By: #### L IPID, T4, TSH, CMP #### [facility] [address] [place] [address] Dr. Rena Barone Hemoglobin (Bld) [Mass/Vol] 12.5 g/dL Critically low 14.0-18.0 [facility] Comment on above: Performed By: #### L IPID, T4, TSH, CMP #### [facility] [address] [place] [address] Dr. Rena Barone IG # 0.03 10e3/ul Normal 0.00-0.03 [facility] Comment on above: Performed By: #### L IPID, T4, TSH, CMP #### [facility] [address] [place] [address] Dr. Rena Barone IG % 0.3 % Normal 0.0-0.5 [facility] Comment on above: Performed By: #### L IPID, T4, TSH, CMP #### [facility] [address] [place] [address] Dr. Rena Barone LYMPH # 1.8 103/ul Normal 1.2-3.8 [facility] Comment on above: Performed By: #### L IPID, T4, TSH, CMP #### [facility] [address] [place] [address] Dr. Rena Barone Lymphocytes/100 WBC (Bld) 18.9 % Critically low 20.5-60.0 [facility] Comment on above: Performed By: #### L IPID, T4, TSH, CMP #### [facility] [address] [place] [address] Dr. Rena Barone MANUAL DIFF REQ NO Normal [facility] Comment on above: Performed By: #### L IPID, T4, TSH, CMP #### [facility] [address] [place] [address] Dr. Rena Barone MCH (RBC) [Entitic mass] 33.3 pg Normal 25.9-34.0 [facility] Comment on above: Performed By: #### L IPID, T4, TSH, CMP #### [facility] [address] [place] [address] Dr. Rena Barone MCHC (RBC) [Mass/Vol] 32.8 g/dL Normal 29.9-35.2 [facility] Comment on above: Performed By: #### L IPID, T4, TSH, CMP #### [facility] [address] [place] [address] Dr. Rena Barone MCV (RBC) [Entitic vol] 101.6 fL Critically high 80.0-94.0 [facility] Comment on above: Performed By: #### L IPID, T4, TSH, CMP #### [facility] [address] [place] [address] Dr. Rena Barone MONO # 0.8 103/ul Normal 0.3-0.8 [facility] Comment on above: Performed By: #### L IPID, T4, TSH, CMP #### [facility] [address] [place] [address] Dr. Rena Barone Monocytes/100 WBC (Bld) 9.0 % Normal 1.7-12.0 [facility] Comment on above: Performed By: #### L IPID, T4, TSH, CMP #### [facility] [address] [address] [address] Rena Barone NEUT # 6.5 103/ul Normal 1.4-6.5 [facility] Comment on above: Performed By: #### L IPID, T4, TSH, CMP #### [facility] [address] [address] [address] Rena Barone Neutrophils/100 WBC (Bld) 69.5 % Normal 43.0-75.0 [facility] Comment on above: Performed By: #### L IPID, T4, TSH, CMP #### [facility] [address] [place] [address] Dr. Rena Baorne Platelet mean volume (Bld) [Entitic vol] 12.0 fL Normal 9.5-13.5 [facility] Comment on above: Performed By: #### L IPID, T4, TSH, CMP #### [facility] [address] [address] [address] Rena Barone PLT 166 103/ul Normal 150-450 [facility] Comment on above: Performed By: #### L IPID, T4, TSH, CMP #### [facility] [address] [place] [address] Dr. Rena Barone RBC 3.75 106/ul Critically low 4.70-6.10 [facility] Comment on above: Performed By: #### L IPID, T4, TSH, CMP #### [facility] [address] [address] [address] Rena Barone WBC 9.3 103/ul Normal 4.0-11.0 [facility] Comment on above: Performed By: #### L IPID, T4, TSH, CMP #### [facility] [address] [address] [address] Rena Barone LIPID PROFILEon 02-26-2022 CHOL-HDL RATIO NORM SEE BELOW Normal [facility] Comment on above: Result Comment: 3.3 - 4.4 LOW RISK 4.4 - 7.1 AVERAGE RISK 7.1 - 11.0 MODERATE RISK >11.0 HIGH RISK Performed By: #### L IPID, T4, TSH, CMP #### [facility] [address] [address] [address] Rena Barone Cholesterol [Mass/Vol] 133 mg/dL Normal <=200 [facility] Comment on above: Performed By: #### L IPID, T4, TSH, CMP #### [facility] [address] [address] [address] Rena Barone Cholesterol in HDL [Mass/Vol] 29 mg/dL Critically low 40-60 [facility] Comment on above: Performed By: #### L IPID, T4, TSH, CMP #### [facility] [address] [address] [address] Rena Barone Cholesterol in LDL [Mass/Vol] 66.8 mg/dL Normal [facility] Comment on above: Performed By: #### L IPID, T4, TSH, CMP #### [facility] [address] [address] [address] Rena Barone Cholesterol.total/C holesterol in HDL [Mass ratio] 4.6 {ratio} Normal [facility] Comment on above: Performed By: #### L IPID, T4, TSH, CMP #### [facility] [address] [address] [address] Rena Barone HDL NORMAL > or = 60 mg/dl - LO W CARDIOVASCULAR RISK <40 mg/dl - HIGH CARDIOVASCULAR RISK Normal [facility] Comment on above: Performed By: #### L IPID, T4, TSH, CMP #### [facility] [address] [address] [address] Rena Barone LDL CALC NORMAL SEE BELOW Normal [facility] Comment on above: Result Comment: <100 mg/dl OPTIMAL 100 - 129 mg/dl NEAR OR ABOVE OPTIMAL 130 - 159 mg/dl BORDERLINE HIGH 160 - 189 mg/dl HIGH >190 mg/dl VERY HIGH Performed By: #### L IPID, T4, TSH, CMP #### [facility] [address] [address] [address] Rena Barone Triglyceride [Mass/Vol] 186 mg/dL Critically high <=150 [facility] Comment on above: Performed By: #### L IPID, T4, TSH, CMP #### [facility] [address] [address] [address] Rena Barone VLDL CALC 37.2 mg/dL Normal [facility] Comment on above: Performed By: #### L IPID, T4, TSH, CMP #### [facility] [address] [address] [address] Rena Barone PROF 14(COMP METB)on 022 Albumin [Mass/Vol] 3.8 g/dL Normal 3.4-5.0 [facility] Comment on above: Performed By: #### L IPID, T4, TSH, CMP #### [facility] [address] [place] [address] Dr. Rena Barone Albumin/Globulin [Mass ratio] 1.0 {ratio} Normal [facility] Comment on above: Performed By: #### L IPID, T4, TSH, CMP #### [facility] [address] [address] [address] Rena Barone ALP [Catalytic activity/Vol] 83 U/L Normal 46-116 [facility] Comment on above: Performed By: #### L IPID, T4, TSH, CMP #### [facility] [address] [place] [address] Dr. Rena Barone ALT [Catalytic activity/Vol] 28 U/L Normal 16-63 [facility] Comment on above: Performed By: #### L IPID, T4, TSH, CMP #### [facility] [address] [address] [address] Rena Barone Anion gap [Moles/Vol] 15.9 mmol/L Normal [facility] Comment on above: Performed By: #### L IPID, T4, TSH, CMP #### [facility] [address] [address] [address] Rena Barone AST [Catalytic activity/Vol] 16 U/L Normal 15-37 [facility] Comment on above: Performed By: #### L IPID, T4, TSH, CMP #### [facility] [address] [place] [address] Dr. Rena Barone Bilirubin [Mass/Vol] 0.6 mg/dL Normal 0.2-1.0 [facility] Comment on above: Performed By: #### L IPID, T4, TSH, CMP #### [facility] [address] [place] [address] Dr. Rena Barone Calcium [Mass/Vol] 8.9 mg/dL Normal 8.5-10.1 [facility] Comment on above: Performed By: #### L IPID, T4, TSH, CMP #### [facility] [address] [place] [address] Dr. Rena Barone Chloride [Moles/Vol] 101 mmol/L Normal 98-107 [facility] Comment on above: Performed By: #### L IPID, T4, TSH, CMP #### [facility] [address] [place] [address] Dr. Rena Barone CO2 [Moles/Vol] 24.4 mmol/L Normal 21.0-32.0 [facility] Comment on above: Performed By: #### L IPID, T4, TSH, CMP #### [facility] [address] [place] [address] Dr. Rena Barone Creatinine [Mass/Vol] 1.09 mg/dL Normal 0.70-1.30 [facility] Comment on above: Performed By: #### L IPID, T4, TSH, CMP #### [facility] [address] [place] [address] Dr. Rena Barone EGFR-AF TAJIK >60 Normal >=60 [facility] Comment on above: Performed By: #### L IPID, T4, TSH, CMP #### [facility] [address] [place] [address] Dr. Rena Barone EGFR-NON AF TAJIK >60 Normal >=60 [facility] Comment on above: Performed By: #### L IPID, T4, TSH, CMP #### [facility] [address] [place] [address] Dr. Rena Barone Globulin (S) [Mass/Vol] 3.8 g/dL Normal [facility] Comment on above: Performed By: #### L IPID, T4, TSH, CMP #### [facility] [address] [place] [address] Dr. Rena Barone Glucose [Mass/Vol] 130 mg/dL Critically high 74-106 [facility] Comment on above: Performed By: #### L IPID, T4, TSH, CMP #### [facility] [address] [place] [address] Dr. Rena Barone Potassium [Moles/Vol] 4.3 mmol/L Normal 3.5-5.1 [facility] Comment on above: Performed By: #### L IPID, T4, TSH, CMP #### [facility] [address] [place] [address] Dr. eRna Barone Protein [Mass/Vol] 7.6 g/dL Normal 6.4-8.2 [facility] Comment on above: Performed By: #### L IPID, T4, TSH, CMP #### [facility] [address] [place] [address] Dr. Rena Barone Sodium [Moles/Vol] 137 mmol/L Normal 136-145 [facility] Comment on above: Performed By: #### L IPID, T4, TSH, CMP #### [facility] [address] [place] [address] Dr. Rena Barone Urea nitrogen [Mass/Vol] 26.0 mg/dL Critically high 7.0-18.0 [facility] Comment on above: Performed By: #### L IPID, T4, TSH, CMP #### [facility] [address] [place] [address] Dr. Rena Barone Urea nitrogen/Creatinine [Mass ratio] 23.9 mg/mg Normal [facility] Comment on above: Performed By: #### L IPID, T4, TSH, CMP #### [facility] [address] [place] [address] Dr. Rena Barone T4on 02-26-2022 T4 [Mass/Vol] 4.20 ug/dL Critically low 4.50-12.10 [facility] Comment on above: Performed By: #### L IPID, T4, TSH, CMP #### [facility] [address] [address] [address] Rena Barone TSHon 02-26-2022 TSH 3.428 uIU/mL Normal 0.358-3.740 [facility] Comment on above: Performed By: #### L IPID, T4, TSH, CMP #### [facility] [address] [address] [address] Rena Barone TSH RANGE SEE BELOW Normal [facility] Comment on above: Result Comment: <0.3 4 UIU/ml HYPERTHYROID 0.34-5.60 UIU/ml EUTHYROID >5.60 UIU/ml HYPOTHYROID Performed By: #### L IPID, T4, TSH, CMP #### [facility] [address] [address] [address] Rena Barone Vital Signs Date Time Vital Sign Value Performing Clinician Facility 07-16-2024 09:00-0400 Body mass index (BMI) [Ratio] 45.3 kg/m2 [facility] 07-16-2024 09:00-0400 Diastolic blood pressure 69 mm[Hg] [facility] 07-16-2024 09:00-0400 Heart rate 75 /min [facility] 07-16-2024 09:00-0400 Systolic blood pressure 108 mm[Hg] [facility] 07-13-2024 22:16-0400 Body height 177.8 cm [facility] 07-13-2024 22:16-0400 Body weight 143.33 kg [facility] 03-12-2024 09:46-0400 Body height 177.8 cm [facility] 03-12-2024 09:46-0400 Body mass index (BMI) [Ratio] 45.3 kg/m2 [facility] 03-12-2024 09:46-0400 Body weight 143.5 kg [facility] 05-24-2024 09:46-0400 Diastolic blood pressure 69 mm[Hg] [facility] 03-12-2024 09:46-0400 Heart rate 80 /min [facility] 03-12-2024 09:46-0400 Respiratory rate 16 /min [facility] 03-12-2024 09:46-0400 Systolic blood pressure 107 mm[Hg] [facility] 11-07-2023 09:00-0500 Body height 177.8 cm Delonte Ball Other [facility] Other 11-07-2023 09:00-0500 Body mass index (BMI) [Ratio] 45.11 kg/m2 Delonte Ball Other [facility] Other 11-07-2023 09:00-0500 Body weight 142.61 kg Delonte Ball Other [facility] Other 11-07-2023 09:00-0500 Diastolic blood pressure 86 mm[Hg] Delonte Ball Other [facility] Other 11-07-2023 09:00-0500 Respiratory rate 16 /min Delonte Ball Other [facility] Other 11-07-2023 09:00-0500 Systolic blood pressure 131 mm[Hg] Delonte Ball Other [facility] Other 07-25-2023 09:00-0400 Body height 177.8 cm Delonte Ball Other [facility] Other 07-25-2023 09:00-0400 Body mass index (BMI) [Ratio] 46.54 kg/m2 Delonte Ball Other [facility] Other 07-25-2023 09:00-0400 Body weight 147.15 kg Delonte Ball Other [facility] Other 07-25-2023 09:00-0400 Diastolic blood pressure 83 mm[Hg] Delonte Ball Other [facility] Other 07-25-2023 09:00-0400 Respiratory rate 16 /min Delonte Ball Other [facility] Other 07-25-2023 09:00-0400 Systolic blood pressure 130 mm[Hg] Delonte Ball Other [facility] Other 06-05-2023 11:25-0400 Body height 177.8 cm Bonny Raymundo Other [facility] Other 06-05-2023 11:25-0400 Body mass index (BMI) [Ratio] 46.48 kg/m2 Bonny Raymundo Other [facility] Other 06-05-2023 11:25-0400 Body temperature 98.2 [degF] Bonny Raymundo Other [facility] Other 06-05-2023 11:25-0400 Body weight 146.97 kg Bonny Raymundo Other [facility] Other 06-05-2023 11:25-0400 Diastolic blood pressure 61 mm[Hg] Bonny Raymundo Other [facility] Other 06-05-2023 11:25-0400 Respiratory rate 18 /min Bonny Raymundo Other [facility] Other 06-05-2023 11:25-0400 SaO2% (BldA) [Mass fraction] 97 % Bonny Raymundo Other [facility] Other 06-05-2023 11:25-0400 Systolic blood pressure 109 mm[Hg] Bonny Raymundo Other [facility] Other 02-14-2023 11:00-0400 Body height 177.8 cm Bonny Raymundo Other [facility] Other 02-14-2023 11:00-0400 Body mass index (BMI) [Ratio] 47.06 kg/m2 Bonny Raymundo Other [facility] Other 02-14-2023 11:00-0400 Body temperature 98 [degF] Bonny Raymundo Other [facility] Other 02-14-2023 11:00-0400 Body weight 148.78 kg Bonny Raymundo Other [facility] Other 02-14-2023 11:00-0400 Diastolic blood pressure 73 mm[Hg] Bonny Raymundo Other [facility] Other 02-14-2023 11:00-0400 Respiratory rate 18 /min Bonny Raymundo Other [facility] Other 02-14-2023 11:00-0400 SaO2% (BldA) [Mass fraction] 96 % Bonny Raymundo Other [facility] Other 02-14-2023 11:00-0400 Systolic blood pressure 130 mm[Hg] Bonny Raymundo Other [facility] Other 01-09-2023 12:30-0400 Body height 177.8 cm Delonte Ball Other [facility] Other 01-09-2023 12:30-0400 Body mass index (BMI) [Ratio] 48.18 kg/m2 Delonte Ball Other [facility] Other 01-09-2023 12:30-0400 Body weight 152.32 kg Delonte Ball Other [facility] Other 01-09-2023 12:30-0400 Diastolic blood pressure 78 mm[Hg] Delonte Ball Other [facility] Other 01-09-2023 12:30-0400 Respiratory rate 16 /min Delonte Ball Other [facility] Other 01-09-2023 12:30-0400 Systolic blood pressure 124 mm[Hg] Delonte Ball Other [facility] Other 11-01-2022 11:00-0500 Body height 177.8 cm Delonte Ball Other [facility] Other 11-01-2022 11:00-0500 Body mass index (BMI) [Ratio] 48.58 kg/m2 Delonte Ball Other [facility] Other 11-01-2022 11:00-0500 Body weight 153.59 kg Delonte Ball Other [facility] Other 11-01-2022 11:00-0500 Diastolic blood pressure 76 mm[Hg] Delonte Ball Other [facility] Other 11-01-2022 11:00-0500 Respiratory rate 16 /min Delonte Ball Other [facility] Other 11-01-2022 11:00-0500 Systolic blood pressure 122 mm[Hg] Delonte Ball Other [facility] Other 10-07-2022 10:20-0500 Diastolic blood pressure 68 mm[Hg] DO Delonte Ball Work Phone: [facility] 10-07-2022 10:20-0500 Heart rate 93 /min DO Delonte Ball Work Phone: [facility] 10-07-2022 10:20-0500 Respiratory rate 16 /min DO Delonte Ball Work Phone: [facility] 10-07-2022 10:20-0500 SaO2% (BldA) [Mass fraction] 98 % DO Delonte Ball Work Phone: [facility] 10-07-2022 10:20-0500 Systolic blood pressure 114 mm[Hg] DO Delonte Ball Work Phone: [facility] 10-07-2022 08:37-0500 Body height 176.53 cm DO Delonte Ball Work Phone: [facility] 10-07-2022 08:37-0500 Body temperature 98.7 [degF] DO Delonte Ball Work Phone: [facility] 10-07-2022 08:37-0500 Body weight 147.41 kg DO Delonte Ball Work Phone: [facility] 05-19-2022 12:40-0400 Body height 177.8 cm Bonny Raymundo Other [facility] Other 05-19-2022 12:40-0400 Body mass index (BMI) [Ratio] 45.91 kg/m2 Bonny Raymundo Other [facility] Other 05-19-2022 12:40-0400 Body temperature 100.6 [degF] Bonny Raymundo Other [facility] Other 05-19-2022 12:40-0400 Body weight 145.15 kg Bonny Raymundo Other [facility] Other 05-19-2022 12:40-0400 SaO2% (BldA) [Mass fraction] 98 % Bonny Raymundo Other [facility] Other 08-12-2021 12:30-0400 Body temperature 98.2 [degF] Bonny [place]os[place]ier[place] Other [facility] Other 08-12-2021 12:30-0400 SaO2% (BldA) [Mass fraction] 92 % Bonny Yoselinrenetta Other [facility] Other Encounters Encounter Date Encounter Type Care Provider Facility Start: 09-10-2024 [facility] Start: 09-09-2024 Evaluation and management of inpatient [facility] Start: 09-09-2024 ambulatory [facility] Start: 09-09-2024 End: 09-12-2024 Evaluation and management of inpatient [facility] Start: 09-07-2024 ambulatory [facility] Start: 07-27-2024 End: 07-27-2024 ambulatory [facility] Start: 07-16-2024 End: 07-16-2024 ambulatory [facility] Work Phone: Start: 07-16-2024 End: 07-16-2024 Patient encounter procedure [facility] Work Phone: Start: 06-23-2024 Non-patient / Non-visit [facility] Work Phone: Start: 04-21-2024 End: 04-21-2024 ambulatory LACHO LACY [facility] Start: 03-24-2024 ambulatory [facility] Start: 03-24-2024 End: 03-24-2024 ambulatory [facility] Start: 03-12-2024 End: 03-12-2024 ambulatory [facility] Work Phone: Start: 03-12-2024 End: 03-12-2024 Patient encounter procedure [facility]ly [facility] Work Phone: Start: 01-20-2024 End: 01-20-2024 ambulatory FELIPE [facility] Start: 12-18-2023 Non-patient / Non-visit [facility]ly [facility] Work Phone: Start: 12-17-2023 End: 12-17-[address] [facility] Start: 11-07-2023 End: 11-07-2023 ambulatory Delonte Tejeda Other [facility] Other Start: 11-07-2023 Encounter for genera l adult medical examination without abnormal findings Delonte Tejeda [facility] Start: 11-07-2023 Periodic preventive med est patient 40-64yrs Delonte Tejeda [facility] Start: 10-18-2023 End: 10-18-2023 ambulatory Bonny Raymundo Other [facility] Other Start: 10-18-2023 Telephone encounter Bonny Raymundo [facility] Start: 10-17-2023 Telephone encounter Delonte Tejeda GENNARO [facility] Start: 10-17-2023 End: 10-17-2023 ambulatory DO Delonte Tejeda Work Phone: [employer] Other Start: 10-17-2023 End: 10-17-2023 Patient encounter procedure DO Delonte Tejeda Work Phone: [facility] Work Phone: Start: 10-09-2023 End: 10-09-2023 ambulatory Delonte Tejeda Other [facility] Other Start: 10-09-2023 Telephone encounter Delonte Geovani GENNARO [facility] Start: 07-25-2023 End: 07-25-2023 ambulatory Delonte Tejeda Other [employer] Other Start: 07-25-2023 Office outpatient vi sit 25 minutes Delonte Tejeda [facility] Start: 07-21-2023 End: 07-21-2023 ambulatory Bonny Raymundo Other [facility] Other Start: 07-21-2023 Telephone encounter Bonny Raymundo [facility] Start: 07-11-2023 End: 07-11-2023 ambulatory Delonte Tejeda Other [employer] Other Start: 07-11-2023 Telephone encounter Delonte Tejeda [facility] Start: 06-06-2023 End: 06-06-2023 ambulatory Delonte Tejeda Other [facility] Other Start: 06-06-2023 Telephone encounter [facility] Start: 06-05-2023 Office outpatient vi sit 15 minutes Bonny Raymundo [facility] Start: 06-05-2023 Telephone encounter Delonte Tejeda [facility] Start: 06-05-2023 End: 06-05-2023 ambulatory DO Delonte Ball Work Phone: [employer] Other Start: 06-05-2023 End: 06-05-2023 Patient encounter procedure DO Delonte Ball Work Phone: [facility] Work Phone: Start: 04-18-2023 End: 04-18-2023 ambulatory Delonte Ball Other [facility] Other Start: 04-18-2023 Telephone encounter Delonte [facility] Start: 04-14-2023 End: 04-14-2023 ambulatory Delonte Ball Other [facility] Other Start: 04-14-2023 Telephone encounter Delonte [facility] Start: 02-21-2023 End: 02-22-[address] DELONTE TEJEDA Facility:[facility] Start: 02-18-2023 End: 02-18-2023 ambulatory Delonte Tejeda Other [facility] Other Start: 02-18-2023 Telephone encounter Delonte Tejeda [facility] Start: 02-14-2023 End: 02-14-2023 ambulatory Bonny Raymundo Other [facility] Other Start: 02-14-2023 Office outpatient vi sit 25 minutes Bonny Zackary [facility] Start: 01-29-2023 End: 01-29-2023 ambulatory Delonte Tejeda Other [facility] Other Start: 01-29-2023 Telephone encounter Delonte Tejeda [facility] Start: 01-20-2023 End: 01-20-2023 ambulatory Delonte Tejeda Other [facility] Other Start: 01-20-2023 Telephone encounter Delonte Geovani [facility] Start: 01-09-2023 End: 01-09-2023 ambulatory Delonte Tejeda Other [facility] Other Start: 01-09-2023 Office outpatient vi sit 25 minutes Delonte Tejeda [facility] Start: 12-24-2022 End: 12-24-2022 ambulatory Delonte Tejeda Other [facility] Other Start: 12-24-2022 Telephone encounter Delonte Tejeda [facility] Start: 12-06-2022 End: 12-07-2022 ambulatory NONE LISTED REQUEST Facility:[facility] Start: 11-29-2022 End: 11-30-2022 ambulatory NONE LISTED REQUEST Facility:[facility] Start: 11-25-2022 End: 11-25-2022 ambulatory Delonte Tejeda Other [facility] Other Start: 11-25-2022 Telephone encounter Delonte Tejeda GENNARO [facility] Start: 11-01-2022 End: 11-01-2022 ambulatory Delonte Tejeda Other [facility] Other Start: 11-01-2022 Encounter for genera l adult medical examination without abnormal findings Delonte Tejeda [facility] Start: 11-01-2022 Patient encounter procedure Delonte Tejeda [facility] Start: 11-01-2022 Periodic preventive med est patient 40-64yrs Delonte Geovani [facility] Start: 10-18-2022 End: 10-18-2022 ambulatory Bonny Raymundo Other [facility] Other Start: 10-18-2022 Telephone encounter Bonny Raymundo [facility] Start: 10-07-2022 End: 10-07-2022 Admission to same day surgery center DO Delonte Tejeda Work Phone: [facility] Start: 10-07-2022 End: 10-07-2022 ambulatory DO Delonte Geovani Work Phone: [facility] Work Phone: Start: 07-30-2022 End: 07-31-2022 ambulatory NONE LISTED REQUEST Facility:[facility] Start: 07-12-2022 ambulatory Malik MOLINA Facility : [facility] Start: 06-04-2022 End: 06-05-[address] DELONTE TEJEDA Facility:[facility] Start: 05-19-2022 End: 05-19-2022 ambulatory Bonny Raymundo Other [facility] Other Start: 05-19-2022 Office outpatient vi sit 25 minutes Bonny Raymundo [facility] Start: 05-01-2022 End: 05-02-[address] DELONTE TEJEDA Facility:[facility] Start: 03-15-2022 End: 03-16-[address] DELONTE TEJEDA Facility:[facility] Start: 03-14-2022 End: 03-15-2022 ambulatory NONE LISTED REQUEST Facility:[facility] Start: 02-26-2022 End: 02-27-[address] DELONTE TEJEDA Facility:[facility] Start: 09-07-2021 Adult health examination Bonny Raymundo Other [facility] Other Start: 08-12-2021 End: 08-12-2021 ambulatory Bonny Sr Other [facility] Other Start: 08-12-2021 Office outpatient vi sit 15 minutes Bonny Sr [facility] Procedures Date Procedure Procedure Detail Performing Clinician Start: 06-05-2023 Plain X-ray of left hip DO Delonte Tejeda Work Phone: Start: 02-21-[address] DOS SANTOS IN [place] Comment on above: Performed By: #### P SASC #### [facility] [address] [address] [address] Rena Barone Start: 10-07-2022 Colonoscopy DO Anjali vance Bundle Work Phone: Start: 02-26-[address] RAYA TEJEDA Comment on above: Performed By: #### L IPID, T4, TSH, CMP #### [facility] [address] [address] [address] Rena Barone Start: 05-20-2016 General examination of patient Bonny Raymundo Other Start: 01-04-2016 Screening for malign ant neoplasm of colon Bonny Raymundo Other Plan of Treatment Date Care Activity Detail Author Start: 10-07-2022 [facility] Patient Education Colon Polyps [facility] Work Phone: [facility] Immunizations Immunization Date Immunization Notes Care Provider Fa cility 08-19-2022 COVID-19 Pfizer (bivalent) Bonny Raymundo Other [facility] 08-19-2022 COVID-19 Pfizer (Pediatric) Bonny Raymundo Other [facility] 08-19-2022 influenza virus vaccine, split virus (incl. purified surface antigen) Bonny Raymundo Other [employer] Other 08-19-2022 influenza virus vaccine, unspecified formulation [facility] 08-19-2022 influenza, injectabl e, quadrivalent, preservative free Bonny Raymundo Other [facility] 02-09-2022 COVID-19 Pfizer Bonny Raymundo Other [facility] 02-09-2022 COVID-19 Vaccine Pfi zer - Documentation Purposes Only Bonny Raymundo Other [facility] 08-06-2021 COVID-19 Vaccine Pfi zer - Documentation Purposes Only Bonny Raymundo Other [facility] 08-06-2021 influenza virus vaccine, split virus (incl. purified surface antigen) Bonny Raymundo Other [employer] [facility] [employer] Other 08-06-2021 influenza virus vaccine, unspecified formulation [facility] 01-20-2021 COVID-19 mRNA, Comirnaty (Pfizer) DO [employer] Work Phone: [facility] 12-30-2020 COVID-19 mRNA, Comirnaty ([employer]) DO [employer] Work Phone: [facility] 07-26-2020 influenza virus vaccine, split virus (incl. purified surface antigen) Bonny Raymundo Other [employer] [facility] [employer] Other 07-26-2020 influenza virus vaccine, unspecified formulation [facility] 09-06-2017 tetanus and diphther ia toxoids, adsorbed, preservative free, for adult use (5 Lf of tetanus toxoid and 2 Lf of diphtheria toxoid) Bonny Raymundo Other [facility] Payers Date Payer Category Payer Unknown [id number] 2.16.8 [id number] 1960 Unknown [id number] 2.16.84 [id number] 1959 Unknown [id number] 2.16.84 [id number] 1959 Unknown [id number] 2.16.84 [id number] 1960 Self-pay [id number] 1960 Self-pay [id number] 1960 Unknown [id number] 2. [id number] Unknown [id number] 2.16.84 [id number] Unknown [id number] 2.16.84 [id number] Unknown [id number] 2.16.84 [id number] Unknown [id number] 2.16.84 [id number] Unknown [id number] 2.16.84 [id number] Unknown [id number] 2.16.84 [id number] Unknown [id number] 2.16.8 [id number] Unknown [id number] 2.16.8 [id number] Social History Date Type Detail Facility Sex Assigned At [employer] Other Start: 10-07-2022 End: 10-07-2022 Tobacco smoking status ARIS Current some day smoker [facility] Start: 1960 Sex Assigned At Male F [facility] Start: 12-18-2023 Tobacco smoking stat us ARIS Ex-smoker (finding) [facility] Goals Date Patient Goal Desired Activity /State Clinical Notes 08-12-2021 to 09-12-2024 Note Date & Type Note Facility 09-12-2024 Note Patient: Salomón Troy Yenny ock Procedure Summary Date: 09/09/24 Room / Location: [facility] AIRLINE PILOT 1 EP / [facility] VASCULAR LAB (Cath) Anesthesia Start: 1235 Anesthesia Stop: 1550 Procedure: Ablation a-fib paroxysmal Diagnosis: Paroxysmal atrial fibrillation (CMS/HCC) (Paroxysmal atrial fibrillation (CMS/HCC) [I48.0]) Providers: Felipe Fatima MD Responsible Provider: Wil Cook MD Anesthesia Type: general ASA Status: 3 Anesthesia Type: general Vitals Value Taken Time BP 112/70 09/09/24 1736 Temp 36.2 ???C (97.2 ???F) 09/09/24 1651 Pulse 65 09/09/24 1739 Resp 17 09/09/24 1739 SpO2 97 % 09/09/24 173 Vitals shown include unfiled device data. Anesthesia Post Evaluation Comments: PACU staff apparently did not call for a signout. Encounter Notable Events Notable Event Outcome Phase Comment Medication event Intraprocedure 1 mg Ibutilide given as per surgeon request over 10 mins from 14:30-14:40 [facility] 09-12-2024 Note Hospital Medicine Discharge Summary Final Discharge Diagnosis: Persistent A-fib left groin hematoma, iatrogenic Admission Diagnosis: Paroxysmal atrial fibrillation (CMS/HCC) [I48.0] Persistent atrial fibrillation (CMS/HCC) [I48.19] Diabetes mellitus type 2 Hypertension Hyperlipidemia Gout. Class III obesity Hospital course: Salomón Rush is a 63 y.o. male with past medical history of A-fib on Xarelto and amiodarone, mild to moderate MR, hypertension, insulin-dependent type 2 diabetes mellitus, gout, hypertension, ELENITA, obesity and hyperlipidemia who presented to the hospital for elective A-fib ablation. The patient had A-fib ablation on 09/09 which was successful with conversion to sinus rhythm. Procedure was complicated by left groin hematoma. CTA abdomen and pelvis did not reveal any retroperitoneal hematoma or pseudoaneurysm. CTA lower extremity revealed left groin hematoma measuring up to 9.9 cm with NO evidence of pseudoaneurysm or active extravasation. Patient was evaluated by vascular team and no surgical intervention needed. patient started on Xarelto yesterday and maintained stable hemoglobin is 8.6 today patient being discharged with repeat CBC in 3 days to follow-up with PCP in 5 to 7 days as well as vascular team and EP team in 1 week if possible Surgical, Invasive or Diagnostic Procedures Done During Admission: Rajeev Christianson abaltion Consultations During Admission: Cardiology/EP and vascular Dear Dr. Geovani DO, Kevin is advised to follow up with you within 1-2 weeks. Items to follow up in ambulatory setting: Follow-up serial CBCs Follow-up with: Cardiology/[facility] Scheduled appointments: Future Appointments Date Time Provider Department Center 09/29/2024 11:00 AM Maryan Clark NP [facility] Your medication list START taking these medications Instructions Last Dose Given Next Dose Due famotidine 20 mg tablet Commonly known as: Pepcid Take 1 tablet (20 mg) by mouth two times daily. omeprazole [address] capsule Commonly known as: PriLOSEC Take 1 capsule (40 mg) by mouth before breakfast. Do not crush or chew. CONTINUE taking these medications Instructions Last Dose Given Next Dose Due allopurinol 300 mg tablet Commonly known as: Zyloprim amiodarone 200 mg tablet Commonly known as: Pacerone TAKE ONE TABLET DAILY amLODIPine 5 mg tablet Commonly known as: Norvasc carvedilol 25 mg tablet Commonly known as: Coreg Take 1.5 tablets, for 37.5mg , twice daily co-enzyme Q-10 50 mg capsule furosemide 40 mg tablet Commonly known as: Lasix insulin glargine 100 unit/mL injection vial Commonly known as: Lantus lisinopril 40 mg tablet potassium chloride CR 20 mEq ER tablet Commonly known as: Klor-Con M20 pravastatin 40 mg tablet Commonly known as: Pravachol rivaroxaban 20 mg tablet Commonly known as: Xarelto semaglutide 0.25 mg or 0.5 mg(2 mg/1.5 mL) pen injector Commonly known as: Ozempic Where to Get Your Medications These medications were sent to [facility] - [place], [place] - [address], [facility] [address] famotidine 20 mg tablet omeprazole [address] capsule Salomón has No Known Allergies. Disposition: Home or Self Care () Discharge Condition: Stable Code Status: Full Code Diagnostic Results Hematology: Results from last 7 days Lab Units 09/12/24 0723 09/12/24 0537 09/09/24 2253 09/09/24 1117 HEMOGLOBIN g/dL 8.6* 8.4* < > -- HEMATOCRIT % 25.1* 25.3* < > -- INR -- -- -- 1.16* < > = values in this interval not displayed. Chemistry: Results from last 7 days Lab Units 09/09/24 2301 SODIUM mmol/L 135* POTASSIUM mmol/L 4.7 CHLORIDE mmol/L 104 CO2 mmol/L 20* BUN mg/dL 24 CREATININE mg/dL 1.21 GLUCOSE mg/dL 179* CALCIUM mg/dL 8.8 No lab exists for component: AFIO2 , APHT , APCOT , APOT , ATCO2 , CK , ALB , IBILI Test Results Pending At Discharge: CBC Diet at the time of discharge: regular diet and diabetic diet Activity: Normal activity as tolerated No strenuous activity or heavy lifting for now Objective Blood pressure 111/54, pulse 59, temperature 36.9 ???C (98.4 ???F), temperature source Temporal, resp. rate 16, height 1.778 m (5' 10 ), weight (!) 148 kg (326 lb 11.2 oz), SpO2 100%. Constitutional: alert and in no acute distress Heart: S1,S2 Lungs: CTA B/L Abdomen: Soft, + BS Ext: significant ecchymosis left groin/ thigh Neuro: no focal neuro deficit Total time for discharge - review of data, exam, discussion with providers and care-team, med-rec and orders, arranging follow up, counseling of patient and/or family and documentation was 60 minutes. Signed Shawn Garcia MD Hospital Medicine 09/12/2024 10:47 AM CC: DO Geovani [facility] 09-12-2024 Note Cardiology Inpatient Progress Note Reason for consult: thigh left hematoma after elective ablation of Afib & flutter Subjective Awake and alert, good spirits. Ongoing diffuse bruising of left superior thigh into his scrotum which is mildly tender. Mcneill catheter recently removed and has not yet voided, hopes to discharge home. Ambulating in room without dyspnea, dizziness, chest discomfort. Discussed findings to date, planning for discharge, routine care of venous access sites reviewed along with written information that will print with AVS. Will obtain CBC and BMP later this week, either Friday or Friday. Patient given lab requisition form for local area. He has follow-up appointment at cardiology clinic 09/29/2022. Objective No Known Allergies Scheduled meds: allopurinol, 150 mg, oral, Daily amiodarone, 200 mg, oral, Daily with breakfast amLODIPine, 5 mg, oral, Daily carvedilol, 25 mg, oral, BID with meals co-enzyme Q-10, 50 mg, oral, BID furosemide, 40 mg, oral, Every other day insulin glargine, 15 Units, subcutaneous, Nightly insulin lispro, 0-5 Units, subcutaneous, TID with meals And insulin lispro, 0-4 Units, subcutaneous, Nightly lisinopril, 40 mg, oral, Daily pantoprazole, 40 mg, oral, Daily potassium chloride CR, 20 mEq, oral, Daily pravastatin, 40 mg, oral, Nightly rivaroxaban, 20 mg, oral, Daily with evening meal PRN medications: acetaminophen, glucose OR dextrose 50 % in water (D50W), HYDROmorphone, traMADol Objective: Patient Vitals for the past 24 hrs: BP Temp Temp src Pulse Resp SpO2 Weight 09/12/24 0819 111/54 36.9 ???C (98.4 ???F) [facility] 59 16 100 % -- 09/12/24 0545 -- -- -- -- -- -- (!) 148 kg (326 lb 11.2 oz) 09/12/24 0400 123/71 -- -- 61 20 97 % -- 09/12/24 0000 111/57 -- -- 61 11 98 % -- 09/11/241999 117/59 36.8 ???C (98.3 ???F) Temporal 57 14 98 % -- 09/11/24 1719 107/71 36.9 ???C (98.4 ???F) Temporal 65 17 98 % -- 09/11/24 1200 122/62 36.6 ???C (97.9 ???F) Temporal -- -- -- -- 09/11/24 0932 128/63 36.8 ???C (98.2 ???F) Temporal 61 12 99 % -- Physical exam: BP 111/54 (BP Location: Right arm, Patient Position: Lying) Pulse 59 Temp 36.9 ???C (98.4 ???F) (Temporal) Resp 16 Ht 1.778 m (5' 10 ) Wt (!) 148 kg (326 lb 11.2 oz) SpO2 100% BMI 46.88 kg/m??? General: Alert, appropriate mood / affect. NAD Eyes: anicteric sclera. Non-injected conjunctiva. No xanthelasmas Neck: No elevated JVP. No carotid bruit Pulm: no increased effort of breathing. Breath sounds CTA bilaterally with no wheeze, rhonchi or rales. Cards: HRRR , NL S1, S2. No S3 or S4 gallop. Murmur: none Abd: Soft, Nontender, physiologic bowel sounds are present Extr: Lower extremity edema: None. DP pulses present bilaterally Right femoral venous access site dressing clean, dry and intact with no hematoma or bruising. Dressing removed and Band-Aid applied. Left femoral venous access site gauze removed, clean, dry and intact with no hematoma. There is diffuse bruising along tops of thigh radiating into groin area involving all of scrotum. There is no significant scrotal edema or penile edema. Skin: warm, dry, well perfused Neuro: A&Ox3, No gross deficits Psych: appropriate mood, affect. Relevant Lab Results Lab Results Component Value Date HGB 8.6 (L) 09/12/2024 HCT 25.1 (L) 09/12/2024 Lab Results Component Value Date NA 135 (L) 09/09/2024 K 4.7 09/09/2024 CL 104 09/09/2024 ANIONGAP 16 09/09/2024 BUN 24 09/09/2024 CREATININE 1.21 09/09/2024 CALCIUM 8.8 09/09/2024 No results found for: BILITOT , BILIDIR , ALKPHOS , AST , ALT , PROT , ALBUMIN No results found for: CHOLESTEROL , CHOLESTEROL TOTAL , TRIGLYCERIDES , HDL , LDL CHOLESTEROL , LDL DIRECT , LDL CALC No results found for: THYROID , TSH , FREE T4 No results found for: DIGOXIN LVL No results found for: HGBA1C No results found for: TROPONIN I , TROPONIN T , POC TROPONIN I , POC TROPONIN I. No results found for: BNP Last lab values have been reviewed with patient at today's visit. Encounter Date: 09/09/24 EKG 12 lead Result Value Ventricular Rate 66 Atrial Rate 102 MT Interval 176 QRS DURATION 102 QT Interval 484 QTC CALCULATION(BAZETT) 507 P [place] 68 R-[place] 92 T Wave [place] 64 Impression Sinus tachycardia with 2nd degree A-V block (Mobitz II) Right axis deviation Prolonged QT Abnormal ECG When compared with ECG of 09-SEP-2024 11:27, Sinus rhythm has replaced Atrial fibrillation Confirmed by Felipe Fatima ([id number]) on 09/10/2024 8:48:31 AM 09/09/24 EP: Pulmonary Vein Isolation and Comprehensive EP study. Dr. Fatima INDICATIONS FOR PROCEDURE: 1. Persistent atrial fibrillation. POST PROCEDURE DIAGNOSIS 1. Persistent atrial fibrillation s/p PVI (WACA)+ Superior and Inferior roof line (Post Box isolaton)+ Substrate modification. 2. Atrial flutter s/p CTI ablation with repeat ablation and confirmed block (more content not included)... [facility] 09-12-2024 Note Subjective Patient with no acute overnight events. Pain controlled (only involving medial thigh), ambulated and remained hemodynamically stable. Started on AC yesterday and Hb has remained stable. Objective Patient Vitals for the past 24 hrs: BP Temp Temp src Pulse Resp SpO2 Weight 09/12/24 0545 -- -- -- -- -- -- (!) 148 kg (326 lb 11.2 oz) 09/12/24 0400 123/71 -- -- 61 20 97 % -- 09/12/24 0000 111/57 -- -- 61 11 98 % -- 09/11/24 2000 117/59 36.8 ???C (98.3 ???F) Temporal 57 14 98 % -- 09/11/24 1719 107/71 36.9 ???C (98.4 ???F) Temporal 65 17 98 % -- 09/11/24 1200 122/62 36.6 ???C (97.9 ???F) Temporal -- -- -- -- 09/11/24 0932 128/63 36.8 ???C (98.2 ???F) Temporal 61 12 99 % -- Physical Exam Constitutional: Appearance: Normal appearance. HENT: Head: Normocephalic and atraumatic. Eyes: Conjunctiva/sclera: Conjunctivae normal. Pulmonary: Effort: Pulmonary effort is normal. No respiratory distress. Abdominal: Palpations: Abdomen is soft. Musculoskeletal: General: No swelling. Normal range of motion. Cervical back: Normal range of motion and neck supple. Comments: Bruising and swelling involving medial aspect of left thigh, groin and scrotum. No evidence of skin compromise, minimal serous drainage from previous access site Skin: General: Skin is warm. Coloration: Skin is not jaundiced. Neurological: Mental Status: He is alert and oriented to person, place, and time. Mental status is at baseline. Psychiatric: Mood and Affect: Mood normal. Behavior: Behavior normal. Lab Results Component Value Date NA 135 (L) 09/09/2024 K 4.7 09/09/2024 CL 104 09/09/2024 ANIONGAP 16 09/09/2024 BUN 24 09/09/2024 CREATININE 1.21 09/09/2024 CALCIUM 8.8 09/09/2024 No results found for: BILITOT , BILIDIR , ALKPHOS , AST , ALT , PROT , ALBUMIN Lab Results Component Value Date HGB 8.6 (L) 09/12/2024 HCT 25.1 (L) 09/12/2024 No X-ray results found for the past 24 hoursNo MRI results found for the past [address] results found for the past 24 hours Encounter Date: 09/09/24 EKG 12 lead Result Value Ventricular Rate 66 Atrial Rate 102 MT Interval 176 QRS DURATION 102 QT Interval 484 QTC CALCULATION(BAZETT) 507 P [place] 68 R-[place] 92 T Wave [place] 64 Impression Sinus tachycardia with 2nd degree A-V block (Mobitz II) Right axis deviation Prolonged QT Abnormal ECG When compared with ECG of 09-SEP-2024 11:27, Sinus rhythm has replaced Atrial fibrillation Confirmed by Felipe Fatima ([id number]) on 09/10/2024 8:48:31 AM Nutrition Screen Assessment Assessment & Plan Paroxysmal atrial fibrillation (CMS/HCC) Persistent atrial fibrillation (CMS/HCC) 63 yo/ M with 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 PLAN: Patient restarted AC with stable Hb No surgical intervention at this time as patient has improved pain/ swelling and no skin compromise Bruising present however will take weeks to resolve and may be associated with spreading color changes- explained to patient Vascular surgery will sign off- please call at anytime for the care of this patient Gabriela Abel MD PGY4 [facility] 09-11-2024 Note Hospital Medicine Daily Progress Note - 09/11/2024 11:08 AM; Room: [address] [place] [address] Admission: 09/09/2024 9:55 AM; Length of stay: 2 days THE HOSPITALIST TEAM PREFERS TO USE [email or web address] FOR NON-URGENT COMMUNICATION 7AM-7PM. IF I DO NOT RESPOND WITHIN 20 MINUTES OR URGENT MATTERS, PLEASE CALL THROUGH THE AGENCY SALES MANAGEMENT ASSISTANT. FROM 7PM-7AM, PLEASE PAGE [phone](COVR). Code Status: Full Code Barriers to Discharge: A. Fib ablation/Hematoma Expected Discharge Date: 1 day ? Discharge Destination: home Overview Patient is seen for evaluation and management of A. Fib Subjective Seen today in his room, alert and in no acute distress. mild discomfort left thigh Physical Exam Constitutional: alert and in no acute distress Heart: S1,S2 Lungs: CTA B/L Abdomen: Soft, + BS Ext: significant ecchymosis left groin/ thigh Neuro: no focal neuro deficit Visit Vitals BP 128/63 (BP Location: Right arm, Patient Position: Lying) Pulse 61 Temp 36.8 ???C (98.2 ???F) (Temporal) Resp 12 Intake/Output Summary (Last 24 hours) at 09/11/2024 1108 Last data filed at 09/11/2024 0900 Gross per 24 hour Intake 960.1 ml Output 4085 ml Net -3124.9 ml Estimated body mass index is 47.21 kg/m??? as calculated from the following: Height as of this encounter: 1.778 m (5' 10 ). Weight as of this encounter: 149 kg (329 lb). Active Inpatient Problems Principal Problem: Paroxysmal atrial fibrillation (CMS/HCC) Active Problems: Persistent atrial fibrillation (CMS/HCC) Assessment and Plan persistent A-fib status post pulmonary vein isolation and comprehensive EP study on 09/09 patient currently in sinus rhythm continue amiodarone thank Cortez remain on hold 2. left groin hematoma, iatrogenic CT angio lower extremities showed superficial hematoma left groin, 9.[address] abdomen and pelvis without IV contrast with no definite pseudoaneurysm or active extravasation No surgical intervention per vascular 3. Diabetes mellitus type 2 continue Lantus and sliding scale insulin 4. Hypertension continue Norvasc and lisinopril 5. Hyperlipidemia continue Pravachol 6. gout. Continue allopurinol 7. class III obesity VTE Prophylaxis: Contraindicated due to active bleed Scheduled Meds allopurinol, 150 mg, oral, Daily amiodarone, 200 mg, oral, Daily with breakfast amLODIPine, 5 mg, oral, Daily carvedilol, 25 mg, oral, BID with meals co-enzyme Q-10, 50 mg, oral, BID furosemide, 40 mg, oral, Every other day insulin glargine, 15 Units, subcutaneous, Nightly insulin lispro, 0-5 Units, subcutaneous, TID with meals And insulin lispro, 0-4 Units, subcutaneous, Nightly lisinopril, 40 mg, oral, Daily pantoprazole, 40 mg, oral, Daily potassium chloride CR, 20 mEq, oral, Daily pravastatin, 40 mg, oral, Nightly [Held by provider] rivaroxaban, 20 mg, oral, Daily with evening meal Pertinent Investigations Hematology: Results from last 7 days Lab Units 09/11/24 0531 09/10/24 2224 09/09/24 2253 09/09/24 1117 HEMOGLOBIN g/dL 8.9* 9.0* < > -- HEMATOCRIT % 26.6* 26.4* < > -- INR -- -- -- 1.16* < > = values in this interval not displayed. Chemistry: Results from last 7 days Lab Units 09/09/24 2301 SODIUM mmol/L 135* POTASSIUM mmol/L 4.7 CHLORIDE mmol/L 104 CO2 mmol/L 20* BUN mg/dL 24 CREATININE mg/dL 1.21 GLUCOSE mg/dL 179* CALCIUM mg/dL 8.8 No lab exists for component: AFIO2 , APHT , APCOT , APOT , ATCO2 , CK , ALB , IBILI Results from last 7 days Lab Units 09/11/24 0801 09/10/24 2139 09/10/24 1809 09/09/24 2042 09/09/24 1558 09/09/24 1115 POCT GLUCOSE mg/dL 180* 201* 168* 162* 146* 126* Historical Values: (Includes values prior to this admission) No results found for: PREALBUMIN , TSH , T3FREE , FREET4 , CORTISOL , FEV1 , VEI3DCQ , DLCO , RVSP , HDL , LDL No results found for: [id number] , IRON , TIBC , C3 , C4 , SHANE , CANCA , ASO , PSA , CEA , CA125 , CA199 , AFP , CA153 Imaging Vascular US lower extremity arterial duplex bilateral Narrative: Procedure: The lower extremity arteries were evaluated by ultrasound, Doppler flow, color Doppler, spectral analysis, and velocity measurement. This included evaluation of the peak systolic velocity. The segments evaluated including the common femoral artery, proximal superficial femoral artery, mid-superficial femoral artery, distal superficial femoral artery, popliteal artery, proximally and distally all calf arteries. Impression: Right: Heterogeneous plaque with multiphasic Doppler signals and no significant spectral Doppler or color flow disturbances noted in common femoral, deep femoral, superficial femoral, popliteal, posterior tibial, peroneal, anterior tibial, and dorsalis pedis arteries. Left: Superficial mid femoral artery with heterogeneous plaque, and absent spectral Doppler signals and color flow. consistent with complete occlusion. Reconstitution of monophas (more content not included)... [facility] 09-11-2024 Note Subjective Patient with no acute overnight events. Pain controlled, ambulated and remained hemodynamically stable. Hb 8.9 from 9 but down from 11.7 2 days ago. Imaging with no concern for pseudoaneurysm. Arterial duplex noted- Left SFA complete occlusion. Reconstitution of monophasic arterial flow through collateral pathways in the superficial femoral artery. Heterogeneous plaque with multiphasic Doppler signals and no significant spectral Doppler or color flow disturbances noted in anterior tibial, and dorsalis pedis arteries. Objective Patient Vitals for the past 24 hrs: BP Temp Temp src Pulse Resp SpO2 Weight 09/11/24 0421 -- -- -- -- -- -- (!) 149 kg (329 lb) 09/11/24 0305 124/58 36.6 ???C (97.9 ???F) Temporal 68 23 98 % -- 09/11/244 104/54 36.7 ???C (98.1 ???F) Temporal 58 17 99 % -- 09/10/242014 116/51 36.6 ???C (97.9 ???F) Temporal 63 19 98 % -- 09/10/24 1600 113/65 36.9 ???C (98.4 ???F) Temporal 63 16 96 % -- 09/10/24 1200 -- 36.6 ???C (97.9 ???F) Temporal -- -- -- -- 09/10/24 1100 -- 36.8 ???C (98.2 ???F) Temporal -- -- -- -- 09/10/24 0900 -- 36.7 ???C (98.1 ???F) Temporal -- -- -- -- Physical Exam Constitutional: Appearance: Normal appearance. HENT: Head: Normocephalic and atraumatic. Eyes: Conjunctiva/sclera: Conjunctivae normal. Pulmonary: Effort: Pulmonary effort is normal. No respiratory distress. Abdominal: Palpations: Abdomen is soft. Musculoskeletal: General: No swelling. Normal range of motion. Cervical back: Normal range of motion and neck supple. Skin: General: Skin is warm. Coloration: Skin is not jaundiced. Neurological: Mental Status: He is alert and oriented to person, place, and time. Mental status is at baseline. Psychiatric: Mood and Affect: Mood normal. Behavior: Behavior normal. Lab Results Component Value Date NA 135 (L) 09/09/2024 K 4.7 09/09/2024 CL 104 09/09/2024 ANIONGAP 16 09/09/2024 BUN 24 09/09/2024 CREATININE 1.21 09/09/2024 CALCIUM 8.8 09/09/2024 No results found for: BILITOT , BILIDIR , ALKPHOS , AST , ALT , PROT , ALBUMIN Lab Results Component Value Date HGB 8.9 (L) 09/11/2024 HCT 26.6 (L) 09/11/2024 No X-ray results found for the past 24 hoursNo MRI results found for the past [address] results found for the past 24 hours Encounter Date: 09/09/24 EKG 12 lead Result Value Ventricular Rate 66 Atrial Rate 102 MT Interval 176 QRS DURATION 102 QT Interval 484 QTC CALCULATION(BAZETT) 507 P [place] 68 R-[place] 92 T Wave [place] 64 Impression Sinus tachycardia with 2nd degree A-V block (Mobitz II) Right axis deviation Prolonged QT Abnormal ECG When compared with ECG of 09-SEP-2024 11:27, Sinus rhythm has replaced Atrial fibrillation Confirmed by Felipe Fatima (80) on 09/10/2024 8:48:31 AM Nutrition Screen Assessment Assessment & Plan Paroxysmal atrial fibrillation (CMS/HCC) Persistent atrial fibrillation (CMS/HCC) 63 yo/ M with 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 PLAN: Continue to monitor Hb No surgical intervention at this time as patient has improved pain/ swelling and no skin compromise Bruising present however will take weaks to resolve and may be associated with spreading color changes- explained to patient Okay to restart anticoagulation since Hb and hemodynamics stable and no active extravasation on imaging. However if started , recommend monitoring Hb. Gabriela Abel MD PGY4 I saw the patient with the residents. 63-year-old male patient over weight with a weight of 148 kg. He had ablation procedure from the cardiac point of view. It was noticed last night the patient has a swelling in the left groin with ecchymosis. CT scan was done which did not show any actively bleeding but a hematoma. An ultrasound was ordered for today for possibility of pseudoaneurysm. Patient has less pain now in the left groin as compared to last night. I examined the patient with the resident he has ecchymosis and a small hematoma on the left side with significant inspiratory ecchymosis. There is no tenderness in that area and the skin is normal. The rest of history and exam as above. Will await the results of the ultrasound. The patient most probably will be observed he is not so far a candidate for any surgical intervention or thrombin injection. I discussed the condition with the patient and he understands the plan. The rest of history andexam are as above. I agree with the findings. [facility] 09-11-2024 Note ---- Attestation signed by Donal Sainz MD at 09/11/2024 5:47 PM By using the attestations below, I agree that I have read and verify that the documentation has been personally reviewed by me and ensure that the documentation accurately reflects the encounter. GC: I personally saw this patient on the day of the encounter, performed the tracey portions of the service and participated in the management and treatment plan of the patient. I reviewed and confirm the documentation by the Cardiovascular Fellow Dr Lito Boss. Please note there may be an additional personal documentation from me. Donal Sainz MD ---- Cardiology Progress Note Subjective Subjective: Patient seen and examined this morning; he has no active concerns. No chest pain, shortness of breath or palpitations. Hemodynamically stable overnight. Ecchymosis and hematoma over the left femoral access site is not worse. No worsening pain. Plan as detailed below. Objective Current Facility-Administered Medications: acetaminophen (Tylenol) tablet 650 mg, 650 mg, oral, q4h PRN, Elizabeth Santos allopurinol (Zyloprim) split tablet 150 mg, 150 mg, oral, Daily, Felipe Fatima MD, 150 mg at 09/10/24 1001 amiodarone (Pacerone) tablet 200 mg, 200 mg, oral, Daily with breakfast, Felipe Fatima MD, 200 mg at 09/10/24 0822 amLODIPine (Norvasc) tablet 5 mg, 5 mg, oral, Daily, Felipe Fatima MD, 5 mg at 09/10/24 1001 carvedilol (Coreg) tablet 25 mg, 25 mg, oral, BID with meals, Felipe Fatima MD, 25 mg at 09/10/24 1700 co-enzyme Q-10 capsule 50 mg, 50 mg, oral, BID, Felipe Fatima MD, 50 mg at 09/10/24 215 glucose chewable tablet 24 g, 24 g, oral, q15 min PRN OR dextrose 50 % in water (D50W) syringe 25 g, 25 g, intravenous, q15 min PRN, Felipe Fatima MD furosemide (Lasix) tablet 40 mg, 40 mg, oral, Every other day, Felipe Fatima MD, 40 mg at 09/10/24 1001 HYDROmorphone (Dilaudid) injection 0.5 mg, 0.5 mg, intravenous, q3h PRN, Elizabeth Santos, 0.5 mg at 09/10/24 1546 insulin glargine (Lantus) injection vial 15 Units, 15 Units, subcutaneous, Nightly, Shawn Garcia MD, 15 Units at 09/10/242158 insulin lispro (HumaLOG) injection 0-5 Units, 0-5 Units, subcutaneous, TID with meals AND insulin lispro (HumaLOG) injection 0-4 Units, 0-4 Units, subcutaneous, Nightly, Shawn Garcia MD lisinopril tablet 40 mg, 40 mg, oral, Daily, Felipe Fatima MD, 40 mg at 09/10/24 1001 pantoprazole (ProtoNix) EC tablet 40 mg, 40 mg, oral, Daily, Shawn Garcia MD, 40 mg at 09/11/24 0627 potassium chloride CR (Klor-Con M20) ER tablet 20 mEq, 20 mEq, oral, Daily, Felipe Fatima MD, 20 mEq at 09/09/24 181 pravastatin (Pravachol) tablet 40 mg, 40 mg, oral, Nightly, Felipe Fatima MD, 40 mg at 09/10/242158 [Held by provider] rivaroxaban (Xarelto) tablet 20 mg, 20 mg, oral, Daily with evening meal, Felipe Fatima MD, 20 mg at 09/09/24 1733 traMADol (Ultram) tablet 50 mg, 50 mg, oral, q6h PRN, Elizabeth Santos, 50 mg at 09/09/242009 Objective: Patient Vitals for the past 24 hrs: BP Temp Temp src Pulse Resp SpO2 Weight 09/11/24 0421 -- -- -- -- -- -- (!) 149 kg (329 lb) 09/11/24 0305 124/58 36.6 ???C (97.9 ???F) Temporal 68 23 98 % -- 09/11/24 0005 104/54 36.7 ???C (98.1 ???F) Temporal 58 17 99 % -- 09/10/24 2015 116/51 36.6 ???C (97.9 ???F) Temporal 63 19 98 % -- 09/10/24 1600 113/65 36.9 ???C (98.4 ???F) Temporal 63 16 96 % -- 09/10/24 1200 -- 36.6 ???C (97.9 ???F) Temporal -- -- -- -- 09/10/24 1100 -- 36.8 ???C (98.2 ???F) Temporal -- -- -- -- 09/10/24 0900 -- 36.7 ???C (98.1 ???F) Temporal -- -- -- -- 09/10/24 0800 -- 36.6 ???C (97.9 ???F) Temporal -- -- -- -- Physical Examination: Physical Exam Constitutional: General: He is not in acute distress. Appearance: He is not ill-appearing. HENT: Head: Normocephalic and atraumatic. Cardiovascular: Rate and Rhythm: Normal rate and regular rhythm. Heart sounds: No murmur heard. Pulmonary: Breath sounds: Normal breath sounds. No wheezing or rales. Musculoskeletal: Cervical back: Normal range of motion and neck supple. Right lower leg: No edema. Left lower leg: No edema. Skin: General: Skin is warm and dry. Capillary Refill: Capillary refill takes less than 2 seconds. Findings: Bruising and lesion present. Neurological: Mental Status: He is alert and oriented to person, place, and time. Mental status is at baseline. Relevant Lab Results Encounter Date: 09/09/24 EKG 12 lead Result Value Ventricular Rate 66 Atrial Rate 102 MT Interval 176 QRS DURATION 102 QT Interval 484 QTC CALCULATION(BAZETT) 507 P [place] 68 R-[place] 92 T Wave [place] 64 Impression Sinus tachycardia with 2nd degree A-V block (Mobitz II) Right axis deviation Prolonged QT Abnormal ECG When compared with ECG of 09-SEP-2024 11:27, Sinus rhythm has repla (more content not included)... [facility] 09-10-2024 Note 09/10/24 1522 Admission Assessment Questions Verify insurance with patient Yes Do you understand medical disease or what brought you into the hospital? Yes Who is your current PCP? Delonte Tejeda, DO Can I schedule a follow up appointment for you at the time of discharge? No (patient stated he will make his own appointment) Do you understand why you are taking your current medications? Yes Are you taking your medications as prescribed? Yes Did patient provide teach back? No Pharmacy Bedside Delivery Status Interested Does the patient have a child support case officer assigned to them through their insurance? No Living Arrangement (Current/Prior to Hospitalization) Private residence (Lives with , does not drive, no step to get in, has ramp to get in, one story) Does the patient have history of HHC or SNF? No Assistive Device Other (Comment) (cpap) Patient's goal for discharge home Was patient reminded that goal for discharge is 11am? Yes Does the patient have transportation at discharge? Yes (will need to call his ride in an hour in advance) Type of Residence Private residence Is PT/OT appropriate? No Is PT/OT ordered? No Is SW consult appropriate? No Is SW consult ordered? No Do you understand the benefits of MyChart? Yes Were you able to send link and activate MyChart? Yes [email or web address] Ablation a-fib paroxysmal on 09/09, had bruising and hematoma development over night of left groin, CT scans done to rule out pseudoaneurysm or active extravasation. Plan to monitor one day. Discharge dispo: pending clinical course, plan at this time is for patient to discharge home when medically ready. [facility] 09-10-2024 Note Hospital Medicine Daily Progress Note - 09/10/2024 12:21 PM; Room: [address] [place] [address] Admission: 09/09/2024 9:55 AM; Length of stay: 1 days THE HOSPITALIST TEAM PREFERS TO USE [employer] FOR NON-URGENT COMMUNICATION 7AM-7PM. IF I DO NOT RESPOND WITHIN 20 MINUTES OR URGENT MATTERS, PLEASE CALL THROUGH THE AGENCY SALES MANAGEMENT ASSISTANT. FROM 7PM-7AM, PLEASE PAGE [phone](COVR). Code Status: Full Code Barriers to Discharge: A. Fib ablation/Hematoma Expected Discharge Date: 1 day ? Discharge Destination: home Overview Patient is seen for evaluation and management of A. Fib Subjective Seen today in his room, alert and in no acute distress. mild discomfort left thigh Physical Exam Constitutional: alert and in no acute distress Heart: S1,S2 Lungs: CTA B/L Abdomen: Soft, + BS Ext: significant ecchymosis left groin/ thigh Neuro: no focal neuro deficit Visit Vitals BP 103/53 Pulse 68 Temp 36.8 ???C (98.2 ???F) (Temporal) Resp 17 Intake/Output Summary (Last 24 hours) at 09/10/2024 1221 Last data filed at 09/10/2024 1140 Gross per 24 hour Intake 11.72 ml Output 3855 ml Net -3843.28 ml Estimated body mass index is 47.99 kg/m??? as calculated from the following: Height as of this encounter: 1.778 m (5' 10 ). Weight as of this encounter: 152 kg (334 lb 7 oz). Active Inpatient Problems Principal Problem: Paroxysmal atrial fibrillation (CMS/HCC) Active Problems: Persistent atrial fibrillation (CMS/HCC) Assessment and Plan persistent A-fib status post pulmonary vein isolation and comprehensive EP study on 09/09 patient currently in sinus rhythm continue amiodarone thank Xarelto on hold 2. left groin hematoma, iatrogenic CT angio lower extremities showed superficial hematoma left groin, 9.[address] abdomen and pelvis without IV contrast with no definite pseudoaneurysm or active extravasation patient was evaluated by vascular team and arterial duplex to lower extremities/MARIA FERNANDA being ordered as well as vascular ultrasound for pseudoaneurysm rule out. 3. Diabetes mellitus type 2 continue patient's NPH for now and will add sliding scale insulin 4. Hypertension continue Norvasc and lisinopril 5. Hyperlipidemia continue Pravachol 6. gout. Continue allopurinol 7. class III obesity VTE Prophylaxis: Contraindicated due to active bleed Scheduled Meds allopurinol, 150 mg, oral, Daily amiodarone, 200 mg, oral, Daily with breakfast amLODIPine, 5 mg, oral, Daily carvedilol, 25 mg, oral, BID with meals co-enzyme Q-10, 50 mg, oral, BID furosemide, 40 mg, oral, Every other day insulin NPH and regular human, 15 Units, subcutaneous, Nightly lisinopril, 40 mg, oral, Daily potassium chloride CR, 20 mEq, oral, Daily pravastatin, 40 mg, oral, Nightly [Held by provider] rivaroxaban, 20 mg, oral, Daily with evening meal Pertinent Investigations Hematology: Results from last 7 days Lab Units 09/10/24 0736 09/09/24 2253 09/09/24 1117 HEMOGLOBIN g/dL 9.9* 11.7* -- HEMATOCRIT % 30.2* 34.7* -- INR -- -- 1.16* Chemistry: Results from last 7 days Lab Units 09/09/24 2301 SODIUM mmol/L 135* POTASSIUM mmol/L 4.7 CHLORIDE mmol/L 104 CO2 mmol/L 20* BUN mg/dL 24 CREATININE mg/dL 1.21 GLUCOSE mg/dL 179* CALCIUM mg/dL 8.8 No lab exists for component: AFIO2 , APHT , APCOT , APOT , ATCO2 , CK , ALB , IBILI Results from last 7 days Lab Units 09/09/24 2042 09/09/24 1558 09/09/24 1115 POCT GLUCOSE mg/dL 162* 146* 126* Historical Values: (Includes values prior to this admission) No results found for: PREALBUMIN , TSH , T3FREE , FREET4 , CORTISOL , FEV1 , SPN3GZX , DLCO , RVSP , HDL , LDL No results found for: [id number] , IRON , TIBC , C3 , C4 , SHANE , CANCA , ASO , PSA , CEA , CA125 , CA199 , AFP , CA153 Imaging EKG 12 lead Sinus tachycardia with 2nd degree A-V block (Mobitz II) Right axis deviation Prolonged QT Abnormal ECG When compared with ECG of 09-SEP-2024 11:27, Sinus rhythm has replaced Atrial fibrillation Confirmed by Felipe Fatima (80) on 09/10/2024 8:48:31 AM CTA Lower Extremity Left W IV Contrast Narrative: INDICATION: Left femoral access, hematoma, bleeding COMPARISON: None TECHNIQUE: Multidetector CT Angiogram performed with IV contrast through the bilateral lower extremities to the knees. 3-D Maximum intensity projection reconstructions constructed under concurrent physician supervision on a independent workstation. 3 D images obtained to improve visualization of vascular detail. All CT scans at this facility use dose modulation, iterative reconstruction, and/or weight based dosing when appropriate to reduce radiation dose to as low as reasonably achievable. FINDINGS: VASCULAR STRUCTURES: Concurrently performed CT angiogram of the abdomen and pelvis was dictated separately. Aorta: Atherosclerotic calcifications at the distal aorta. The right common and external iliac arter (more content not included)... [facility] 09-09-2024 Note ---- Attestation signed by Felipe Fatima MD at 09/13/2024 2:02 PM Fellow discussed with me. ---- I was called by nursing staff regarding a concern of expanding swelling and pain in the left groin/thigh area. Patient seen and examined at bedside. The patient is in bed with discomfort. Physical exam reveals a palpable, firm, and tender mass in the left groin and the medial upper aspect of the left thigh. The overlying skin shows mild erythema without warmth or drainage with dressing at the femoral access site C/D/I. Ecchymosis extends to the medial thigh, and there is severe tenderness to palpation. No pulsatility or bruit is detected on auscultation. The patient is hemodynamically stable, with blood pressure at 166/89 mmHg and a heart rate of 74 bmp. The patient continues to report significant pain rated between 6-8 out of 10, unrelieved by Tylenol and tramadol. Also complains of low back pain. Given concern for vascular complication hematoma or pseudoaneurysm at the left femoral access site. Will obtain stat H&H to evaluate for significant bleeding, stat CT abdomen and pelvis with contrast, CTA lower extremity to rule out retroperitoneal hemorrhage and assess for complications related to the femoral access. Will continue holding pressure over the site to minimize further expansion and administer Dilaudid IV PRN for pain control. Will hold Xarelto at this time to reduce the risk of further bleeding. Vascular surgery consulted; case and findings discussed with the vascular surgery manager transition and attending Dr Mcdonald. Plan discussed with the patient and nursing staff. Plan discussed with the attending physician, Dr. Fatima. [facility] 09-09-2024 Note ATRIAL FIBRILLATION ABLATION PROCEDURE NOTE DATE OF PROCEDURE: 09/09/2024 PERFORMING PHYSICIAN: Dr. Felipe Fatima CULINARY ART TEACHER: YOSELYN CONSENT: Patient NAME OF THE PROCEDURE: Pulmonary Vein Isolation and Comprehensive EP study. INDICATIONS FOR PROCEDURE: 1. Persistent atrial fibrillation. FLUROSCOPY: 3.1minutes/ 64mGy. EBL: 15cc SPECIMEN REMOVED: None PROCEDURES PERFORMED: 1. Sonosite guided venous access as noted below and images stored in PACS. 2. Comprehensive EP study and catheter ablation for persistent atrial fibrillation through the pulmonary vein isolation technique. This includes right atrial recording and pacing, His bundle recording and right ventricular recording and pacing. 3. Intracardiac EP 3D mapping. 4. Intracardiac echocardiogram 5. Left atrial and coronary sinus recording and pacing to assess ablation results. 6. Left heart pressure measurements and LV pacing and recording. 7. Induction of arrhythmia and testing of ablation results using intravenous adenosine infusion. 8. Fluroscopy. 9. Arterial line placement INDICATION: 63 year old with past medical history of [...] any shortness of breath, chest pain, fatigue. [id number] at least 2 for hypertension, DM 2, takes Xarelto 20 mg daily. He was seen by Kolby PRATT and at that time 14-day event monitor was ordered which she did from 12/17/2023 to 01/02/2024. Patient was noted to be in atrial fibrillation 100% of the time he was noted to have occasional episodes of A-fib with RVR there was 1 patient triggered event which correlated with A-fib as well as PVCs. So he decided to proceed with catheter ablation. PROCEDURE NOTE: On the day of presentation, she was noted to be in Afib and so KADE was done to rule out AMARJIT thrombus. Risks, benefits and alternatives of the procedure were discussed with the patient and family who agreed to proceed. Please refer to my consult note for details of the discussion and of indications. The patient was prepped and draped following which four venous access was procured on right side as noted below. Ultrasound was used to determine the course and patency of the femoral veins on both sides and they were noted to be patent and the image stored in PACS. After infiltration with 1% lidocaine, 4 venous sheaths were placed in the right as noted below and a left femoral arterial line was placed by me. LFA: 4F for hemodynamic monitoring. RFV: 8Fx3, [employer] ThermoCool SF Bi-Directional over SL1/ Vizigo, SL1: Octoray,, CS Catheter (EZ Steer). 9F: ICE catheter. Following venous access, heparin bolus was given followed by continuous intravenous drip to target ACT around 350. An intracardiac ultrasound catheter was inserted into the right atrium to examine the right atrial anatomy, atrial septum, pulmonary vein anatomy and to monitor for pericardial effusion and guide transseptal access. The LA and RA was moderately dilated. At baseline, there was no pericardial effusion and no AMARJIT clot but noted a very prominent Coumadin ridge. Transeptal access was procured with ICE guidance using a SL-1 sheath and Yusuf needle. Following this, Octoray, catheter was advanced and the multipolar mapping performed of the LA creating a geometry as well as bipolar voltage assessment was made in Afib. After FAM geometry was performed, a 2nd transseptal was performed with an SL1 sheath using a Yusuf needle. Following transseptal, the SL1 sheath was removed and Vizigo sheath was advanced over which the ablation catheter ST-SF thermocol ablation catheter was advanced. Ablation was then performed. A cooling probe was advanced to the stomach and cooled to 4C. Ablation was performed using 40 lang for 10-12s in the anterior LA and 5-8seconds in the posterior wall and roof area. After completion of the left sided WACA, no signals were noted in the LSPV or LIPV and entrance block was noted. After this, I proceeded to perform ablation of the right-sided vein. Following right WACA, the veins were isolated. I ensured that on the anterior aspect of right WACA and in sadaf area, phrenic capture was ruled out before any ablation was performed. Ibutilide 1mg was given over 10 min. I decided to perform superior roof line ablation and inferior roof line ablation leading to a box isolation. Substrate modification was then performed in the posterior LA. DCCVx 1 and patient converted to SR. (more content not included)... [facility] 09-09-2024 Note Airway Date/Time: 09/09/2024 12:58 PM Urgency: elective Airway not difficult General Information and Staff Patient location during procedure: OR Anesthesiologist: Wil Cook MD Resident/EVALUATOR TRANSFER STUDENTS/CAA: Zheng Reaves MD Performed: resident/EVALUATOR TRANSFER STUDENTS/CAA Indications and Patient Condition Indications for airway management: anesthesia Spontaneous Ventilation: absent Sedation level: deep Preoxygenated: yes Patient position: sniffing Mask difficulty assessment: 0 - not attempted Final Airway Details Final airway type: endotracheal airway Successful airway: ETT Cuffed: yes Successful intubation technique: video laryngoscopy Facilitating devices/methods: intubating stylet Endotracheal tube insertion site: oral Blade: Millan Blade size: #3 ETT size (mm): 7.5 Cormack-Lehane Classification: grade I - full view of glottis Placement verified by: chest auscultation and capnometry Cuff volume (mL): 10 Measured from: lips ETT to lips (cm): 23 Number of attempts at approach: 1 Number of other approaches attempted: 0 [facility] 09-09-2024 Note Patient: Salomón Ramon ock Procedure Information Date/Time: 09/09/24 1200 Procedure: Ablation a-fib paroxysmal - pc approved Location: [facility] 1 / [facility] (Cath) Providers: Felipe Fatima MD Relevant Problems Anesthesia Denies anes issues (+) ELENITA (obstructive sleep apnea) Cardio Can do 4 METS (+) Chronic venous insufficiency of lower extremity (+) Hypertension (+) Longstanding persistent atrial fibrillation (CMS/HCC) (+) Paroxysmal atrial fibrillation (CMS/HCC) Endo FSBS 126 (+) Type 2 diabetes mellitus (CMS/HCC) (+) Type 2 diabetes mellitus with hyperglycemia (CMS/HCC) GI (within normal limits) /Renal (within normal limits) Neuro/Psych (+) History of cardioversion Pulmonary Cigars 1 per week Clinical information reviewed: Tobacco Allergies Meds Med Hx Surg Hx Fam Hx Soc Hx Physical Exam Airway Mallampati: II TM distance: >3 FB Neck ROM: full Comments: Full salazar Cardiovascular Rhythm: irregular Rate: normal Dental Comments: Some missing teeth Pulmonary - normal exam Abdominal (+) obese Anesthesia Plan ASA 3 general (Discussed GA/OETT with pt. A-line discussed. Pt agrees to proceed.) The patient is a current smoker. Patient did not smoke on day of procedure. Education provided regarding risk of obstructive sleep apnea. intravenous induction Postoperative administration of opioids is intended. Trial extubation is planned. Anesthetic plan and risks discussed with patient. Use of blood products discussed with patient who consented to blood products. Plan discussed with resident. Additional Equipment Requests [facility] 07-27-2024 Note [place] Electrophysiology Consult Note Reason for visit: persistent [...] any shortness of breath, chest pain, fatigue. [id number] at least 2 for hypertension, DM 2, [...] on file Intimate Partner Violence: Unknown (12/11/2023) OR Safety & Environment Fear of Current or [...] no rales, no (more content not included)... [facility] 04-21-2024 Note [id number]= 2 poin ts- HTN and DM Continue xarelto anticoagulation - denied any bleeding tendencies Rate controlled with Coreg [facility] 04-21-2024 Note Currently pt is cassy soriano post Cardioversion Currently in A fib and rate controlled - Dr Fatima notified and d/w pt about possible A fib ablation [facility] 04-21-2024 Note Patient here for fol [...] All other systems reviewed and are negative. [facility] 04-21-2024 Note UTP CARDIOLOGY PROGR ESS [...] any shortness of breath, chest pain, fatigue. [id number] at least 2 for hypertension, DM 2, [...] 100 QT Interval 406 QTC CALCULATION(BAZETT) 447 R-[place] 49 T Wave [place] 38 Impression Atrial fibrillation Abnormal ECG No previous ECGs available Echo: 09/2023 tte Assessment/Plan: History (more content not included)... [facility] 03-24-2024 Note DIRECT CARDIOVERSION PROCEDURE NOTE [...] any shortness of breath, chest pain, fatigue. [id number] at least 2 for hypertension, DM 2, [...] consider ablation. Felipe Fatima MD Cardiac Electrophysiology [facility] 03-24-2024 Note Patient: Salomón morenok Procedure Information Date/Time: 03/24/24829 Procedure: Cardioversion - TO BE DONE IN March Location: [facility] AIRLINE PILOT HOLDING ROOM / [facility] (Cath) Providers: Felipe Fatima MD Clinical information reviewed: Tobacco Allergies Meds Med Hx Surg Hx Fam Hx Soc Hx Physical Exam Airway Mallampati: II TM distance: >3 FB Neck ROM: full Cardiovascular Dental Pulmonary Abdominal Anesthesia Plan ASA 2 CSE Anesthetic plan and risks discussed with patient. Use of blood products discussed with patient who. Additional Equipment Requests [facility] 01-20-2024 Note OR Electrophysiology Consult Note Reason for visit: persistent [...] any shortness of breath, chest pain, fatigue. [id number] at least 2 for hypertension, DM 2, [...] on file Intimate Partner Violence: Unknown (12/11/2023) OR Safety & Environment Fear of Current or [...] tender Musculoskeletal In (more content not included)... [facility] 12-17-2023 Note [place] Electrophysiology Consult Note [...] stopped on flecainide given having breakthrough episodes. [id number] at least 2 for hypertension, DM 2, [...] on file Intimate Partner Violence: Unknown (12/11/2023) OR Safety & Environment Fear of Current or [...] Lids and Conju (more content not included)... [facility] 12-17-2023 Note New patient here to establish care. Ref from Dr. Tejeda for hx of afib. He used to see [facility] in [place], and hasn't seen them in a few [...] All other systems reviewed and are negative. [facility] 11-07-2023 Evaluation note Encounter Date Diagnosis [...] are maintaining regular scheduled appts with their trials manager. No bleeding complications Oct, Primary hypertension (ICD-10 - I10) This patient is instructed to consume a healthy, low-fat, low-salt diet. They are also encouraged to continue exercise to achieve/maintain a normal BMI. Oct, Obstructive sleep apnea (ICD-10 - G47.33) This patient is aware of the benefits associated with ELENITA: With continued use, the patient reduces the risk for ND, CVA, HTN, cardiac dysrhythmias and sudden cardiac [...] risk for cerebrovascular and cardiovascular disease. Oct, terminologist (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 (ICD-10 - Z79.4) Oct, Screening PSA (prostate specific antigen) (ICD-10 - Z12.5) Yearly JACE and PSA [facility] Other 12-30-2023 Evaluation note* Encounter Date Diagnosis Assessment Notes Treatment Notes Treatment Clinical Notes Sep, Longstanding persistent atrial fibrillation (ICD-10 - I48.11) Echo: 09/2023 LVEF low normal, mod diastolic dysfunction, AV sclerosis, moderate MR. RVSP normal. [facility] Other 12-21-2023 Evaluation note* Encounter Date Diagnosis Assessment Notes Treatment Notes Treatment Clinical Notes Sep, Chronic atrial fibrillation (ICD-10 - I48.20) [facility] Other 10-06-2023 Evaluation note* Encounter Date Diagnosis [...] use, the patient reduces the risk for ND, CVA, HTN, cardiac dysrhythmias and sudden cardiac [...] or develop radicular symptoms, notify office Jul, terminologist (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 (ICD-10 - Z79.4) [facility] Other 10-02-2023 Evaluation note* Encounter Date Diagnosis Assessment Notes Treatment Notes Treatment Clinical Notes Jul, Type 2 diabetes mellitus with hyperglycemia (ICD-10 - E11.65) [facility] Other 09-22-2023 Evaluation note* Encounter Date Diagnosis Assessment Notes Treatment Notes Treatment Clinical Notes Jun, Type 2 diabetes mellitus with hyperglycemia (ICD-10 - E11.65) [facility] Other 08-17-2023 Evaluation note* Encounter Date Diagnosis [...] understanding and is agreeable with treatment plan [facility] Other 08-17-2023 Evaluation note* Encounter Date Diagnosis Assessment Notes Treatment Notes Treatment Clinical Notes May, Left hip pain (ICD-10 - M25.552) [facility] Other 05-02-2023 Evaluation note* Encounter Date Diagnosis Assessment Notes Treatment Notes Treatment Clinical Notes February, Type 2 diabetes mellitus with hyperglycemia, unspecified whether termite inspector insulin use (ICD-10 - E11.65) [facility] Other 04-28-2023 Evaluation note* Encounter Date Diagnosis [...] treatment plan. Patient left in stable condition. [facility] Other 04-12-2023 Evaluation note* Encounter Date Diagnosis Assessment Notes Treatment Notes Treatment Clinical Notes Jan, Type 2 diabetes mellitus with hyperglycemia, unspecified whether termite inspector insulin use (ICD-10 - E11.65) [facility] Other 04-03-2023 Evaluation note* Encounter Date Diagnosis Assessment Notes Treatment Notes Treatment Clinical Notes Jan, Type 2 diabetes mellitus with hyperglycemia (ICD-10 - E11.65) [facility] Other 03-23-2023 Evaluation note* Encounter Date Diagnosis [...] use, the patient reduces the risk for ND, CVA, HTN, cardiac dysrhythmias and sudden cardiac [...] are reviewed at the office visit. Dec, detention (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 (ICD-10 - Z79.4) [...] Monitor for rash of HZV Stretching exercises [facility] Other 03-07-2023 Evaluation note* Encounter Date Diagnosis Assessment Notes Treatment Notes Treatment Clinical Notes Dec, Type 2 diabetes mellitus with hyperglycemia, without long-term current use of insulin (ICD-10 - E11.65) [facility] Other 02-06-2023 Evaluation note* Encounter Date Diagnosis Assessment Notes Treatment Notes Treatment Clinical Notes Nov, Type 2 diabetes mellitus with hyperglycemia, without long-term current use of insulin (ICD-10 - E11.65) [facility] Other 01-13-2023 Evaluation note* Encounter Date Diagnosis [...] use, the patient reduces the risk for ND, CVA, HTN, cardiac dysrhythmias and sudden cardiac [...] 2 diabetes mellitus with hyperglycemia, unspecified whether termite inspector insulin use (ICD-10 - E11.65) This patient [...] use, the patient reduces the risk for ND, CVA, HTN, cardiac dysrhythmias and sudden cardiac [...] Oct, Annual physical exam (ICD-10 - Z00.00) [facility]* Encounter Date Diagnosis Assessment Notes [...] treatment plan. Patient left in stable condition [facility] Other 10-24-2021 Evaluation note* Encounter Date Diagnosis [...] Patient care instructions given in writting by [facility] Care At Home document [facility] [employer] Other Evaluation noteNo assessment information available [facility] Work Phone: Evaluation noteNo InformationNortDepartment of [facility] [place] Other Evaluation note* Diagnosis Onset Date Resolution Status Atrial fibrillation acute Chronic venous insufficiency of lower extremity acute Hypercholesterolemia acute Hypertension acute ELENITA (obstructive sleep apnea) acute Type 2 diabetes mellitus with hyperglycemia acute [facility] Work Phone: Evaluation note* Diagnosis Onset Date Resolution Status Anemia acute Atrial fibrillation acute Chronic venous insufficiency of lower extremity acute Hypercholesterolemia acute Hypertension acute Obesity acute ELENITA (obstructive sleep apnea) acute Type 2 diabetes mellitus with hyperglycemia acute [facility] Work Phone: History and physical note Author Deon Greene [facility] October 07, 2022 9:27am Note Date/Time October 07, 2022 9:27am [facility] [address] [place] [address] Gastroenterology H&P Signed Patient: Salomón Rush MR#: [id number] : 1960 Acct:[id number] Age/Sex: 61 / M Adm Date: 2 Loc: Room: Type: [facility] Attending Dr: Deon Greene MD Copies [...] <Electronically signed by Deon Greene MD> 10/07/22926 [facility] Work Phone: Hislqbd general Narrative - Reported* Type Description Date Medical History hypertension Medical History Diabetes Medical History a. 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 for 24 hours. - [...] Follow up with PCP. - Office number [phone].[facility] Work Phone: Reason for referral (narrative)* Reason *FU 11/28 Referral for persistent atrial fibrillation. Diagnosis 1 Chronic atrial fibri llation (I48.20) Referral Organization [facility] anya Referring Provider First Name Delonte Referring Provider Last Name Geovani Referring Provider Specialty Internal Al dicine Referred Organization [facility] Referred Provider Felipe Fatima Referred Address [address] [place], [place],[address] Referred Provider Specialty Cardiology Referral Priority Routine [...] faxed Clinical Notes Include recent Echo f: [id number] [facility] Other Summary Purpose Family History No Family [...] BLACK JEEP, HIARRHEA, NA USEA, NASAL CONGESTION [id number] JEEP, COUGH, SORE THROAT, POSITIVE HOME TESTNo InformationWELLNESSNo InformationDifferent MedicationOzempic increasePossible Pulled MusclerefillNo InformationOzempicchest/head coldmed refillHRHRLeft hip painWants on TodayNo InformationOzempicNo Information3 month Follow upPrescription ReminderEKG resultsNo InformationWELLNESSWELLNESS (unrecognized sect ion and content) No Status Records FoundNo Status Records FoundNo Status Records FoundNo Status Records Found INFORMATION SOURCE (unrecogn ized section and content) DATE CREATED AUTHOR 07/22/2022 Cary Andres [facility] DATE CREATED AUTHOR AUTHOR'S ORGANIZ ATION 02/21/2023 [facility] DATE CREATED AUTHOR AUTHOR'S ORGANIZ ATION 10/30/2023 [facility] DATE CREATED AUTHOR AUTHOR'S ORGANIZ ATION 09/15/2024 [facility] Care Teams (unrecognized sec tion and content) [...] Tejeda DO Primary Care Provider, Attending Pr arsh [...] BE BASED ON THE PRIMARY CLINICAL RECORDS. [employer] [facility]. provides no warranty or guarantee of the accuracy or completeness of information in this document.
--- NOTE | 2024-09-17 08:16 | US_ITS ---
[facility] [place] [id number] Patient Name: DALE NUNN MRN: [id number] date: 1960 Sex: M Assigned Patient Location: ER Current Patient Location: ED.MAIN Accession/Order Number: [id number] Exam Date: 09/17/2024 08:30 Report Date: 09/17/2024 12:08 At the request of: GERARD WANG Procedure: US arterial duplex LE LT EXAMINATION: US arterial duplex LE LT HISTORY: Recent cath, bruising swelling COMPARISON: No relevant comparison available. TECHNIQUE: Color and Duplex Doppler ultrasound evaluation analysis were performed in the usual manner. FINDINGS: LEFT LOWER EXTREMITY ARTERIAL: Absent flow within the proximal through mid femoral artery. Diminished flow within the distal femoral artery. Biphasic waveform throughout. Heterogeneous soft tissue enlarged hematoma throughout left groin and proximal thigh. No appreciable blood flow within these areas. External Iliac PSV: 0 cm/s External Iliac EDV: 0 cm/s Common Femoral PSV: 19.02 cm/s Common Femoral EDV: 9.42 cm/s Superficial Femoral Proximal PSV: 0 cm/s Proximal EDV: 0 cm/s Mid PSV: 0 cm/s Mid EDV: 0 cm/s Distal PSV: 34.33 cm/s Distal EDV: 4.67 cm/s Popliteal Proximal PSV: 28.8 cm/s Popliteal Proximal EDV: 5.8 cm/s Posterior Tibial Proximal PSV: 38.71 cm/s Proximal EDV: 9.06 cm/s Mid PSV: 45.30 cm/s Mid EDV: 9.06 cm/s Distal PSV: 54.09 cm/s Distal EDV: 10.16 cm/s Anterior Tibial Proximal PSV: 45.27 cm/s Proximal EDV: 11.25 cm/s Mid PSV: 56.24 cm/s Mid EDV: 9.05 cm/s Distal PSV: 62.86 cm/s Distal EDV: 7.96 cm/s US/US arterial duplex LE LT IMPRESSION: 1. Large left groin and proximal thigh hematoma without evidence of active extravasation. (Postprocedural hematoma) 2. 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 Abnormal biphasic waveform within distal femoral through calf arteries. Electronically authenticated by: TRAVIS EGAN Date: 09/17/2024 12:08
--- NOTE | 2024-09-17 08:18 | ED_ITS ---
HPI HPI - General Adult General Chief complaint: Extremity Problem, Nontraumatic Stated complaint: GROIN PAIN- POST ABLATION Time Seen by Provider: 09/17/24 08:12 Source: patient Mode of arrival: walk-in Limitations: no limitations History of Present Illness HPI narrative: 63-year-old male presents to the emergency for bruising and swelling. 8 days ago he had a cardiac ablation and at the site of entry on the left side of his groin he has bruising and swelling. He notes specifically a hard swollen area near his scrotum. He is on Xarelto. They also entered on the right side but he does not have similar bruising and swelling on that side. The symptoms on the left gotten worse in the last day or 2. Related Data Home Medications ?Medication ?Instructions ?Recorded ?Confirmed allopurinol 300 mg tablet 300 mg PO Q24H 09/17/24 09/17/24 amiodarone 200 mg tablet 200 mg PO Q24H 09/17/24 09/17/24 carvedilol 25 mg tablet 25 mg PO Q12H 09/17/24 09/17/24 famotidine 20 mg tablet 20 mg PO Q12H 09/17/24 09/17/24 insulin glargine 100 unit/mL (3 50 unit subcut DAILY 09/17/24 09/17/24 mL) subcutaneous pen (Basaglar KwikPen U-100 Insulin) lisinopril 40 mg tablet 40 mg PO DAILY 09/17/24 09/17/24 omeprazole 40 mg capsule,delayed 40 mg PO DAILY 09/17/24 09/17/24 release rivaroxaban 20 mg tablet (Xarelto) 20 mg PO DAILY 09/17/24 09/17/24 Allergies Allergy/AdvReac Type Severity Reaction Status Date / Time No Known Drug Allergies Allergy Verified 09/17/24 08:06 Opioid HPI Opioid Management Most Recent Opioid Data: No Data to Display Review of Systems ROS Narrative A ten point review of systems is negative except as noted above. PFSH PFSH Social History Little interest or pleasure in doing things: not at all Feeling down, depressed, or hopeless: not at all Exam Narrative Exam Narrative: Nurses note and vital signs reviewed and patient is not hypoxic. General: The patient appears in no apparent distress. Skin: Warm, dry, no pallor noted. There is no rash noted. Head: Normocephalic, atraumatic Eye: Normal conjunctiva, no drainage Ears, Nose, Mouth, and Throat: oral mucosa is moist. Nares patent. Cardiovascular: Regular Rate and Rhythm Respiratory: Patient is in no distress, no accessory muscle use, lungs are clear to auscultation, no wheezing, rales or rhonchi Back: non-tender GI: Soft and nontender Musculoskeletal: The left groin area is examined. He has significant purple- colored bruising extending down most of the anterior left thigh region. He has a firm palpable nonpulsatile mass in the right inguinal area medially. Neurological: A&O, normal speech Psychiatric: Cooperative Constitutional Vital Signs, click to edit/add: Last Vital Signs Temp 97.9 F 09/17/24 08:06 Pulse 67 09/17/24 15:52 Resp 17 09/17/24 15:52 BP 145/79 H 09/17/24 15:52 Pulse Ox 100 09/17/24 15:52 O2 Del Method Room Air 09/17/24 15:52 Course Vital Signs Vital signs: Vital Signs Temperature 97.9 F 09/17/24 08:06 Pulse Rate 70 09/17/24 08:06 Respiratory Rate 18 09/17/24 08:06 Blood Pressure 135/66 09/17/24 08:06 Pulse Oximetry 99 09/17/24 08:06 Temperature 97.9 F 09/17/24 08:06 Pulse Rate 67 09/17/24 15:52 Respiratory Rate 17 09/17/24 15:52 Blood Pressure 145/79 H 09/17/24 15:52 Pulse Oximetry 100 09/17/24 15:52 Oxygen Delivery Method Room Air 09/17/24 15:52 Medical Decision Making MDM Narrative Medical decision making narrative: Arterial duplex and CTA of the aorta and lower extremities were performed. The patient has hematoma and occlusion at the origin of the superficial femoral artery. These findings were discussed with Dr. Sainz and Dr Mcdonald. Dr. Mcdonald reports that this is previously known and unchanged and there is no indication for intervention or admission or transfer of this patient. The patient was recommended rest and he will continue his medications and follow-up as an outpatient. Findings were discussed thoroughly. Differential Diagnosis Differential Diagnosis: Pseudoaneurysm, hematoma Lab Data Lab results reviewed: Yes I reviewed the patient's lab results Labs: Lab Results 09/17/24 Range/Units 08:15 WBC 9.0 (4.0-11.0) 10^3/uL RBC 2.63 L (4.70-6.10) 10^6/uL Hgb 9.2 L (14.0-18.0) g/dL Hct 27.7 L (42.0-54.0) % MCV 105.3 H (80.0-94.0) fL MCH 35.0 H (25.9-34.0) pg MCHC 33.2 (29.9-35.2) g/dL RDW 13.1 (11.0-15.0) % Plt Count 167 (150-450) 10^3/uL MPV 11.6 (9.5-13.5) fL Neut % (Auto) 74.3 (43.0-75.0) % Lymph % (Auto) 12.4 L (20.5-60.0) % [place] % (Auto) 11.1 (1.7-12.0) % Eos % (Auto) 1.6 (0.9-7.0) % Baso % (Auto) 0.2 (0.2-2.0) % Neut # (Auto) 6.7 H (1.4-6.5) 10^3/uL Lymph # (Auto) 1.1 L (1.2-3.8) 10^3/uL [place] # (Auto) 1.0 H (0.3-0.8) 10^3/uL Eos # (Auto) 0.1 (0.0-0.7) 10^3/uL Baso # (Auto) 0.0 (0.0-0.1) 10^3/uL Abs Immat Gran (auto) 0.04 H (0.00-0.03) 10^3/uL Imm/Tot Granulo (auto) 0.4 (0.0-0.5) % Sodium 139 (136-145) mmol/L Potassium 4.6 (3.5-5.1) mmol/L Chloride 103 (98-107) mmol/L Carbon Dioxide 24.5 (21.0-32.0) mmol/L Anion Gap 16.1 BUN 28.0 H (7.0-18.0) mg/dL Creatinine 1.71 H (0.70-1.30) mg/dL Est GFR ( Amer) 49 L (>=60 mL/min/1.73m^2) Est GFR (Non-Af Amer) 41 L (>=60 mL/min/1.73m^2) BUN/Creatinine Ratio 16.4 Glucose 105 (74-106) mg/dL Calcium 9.0 (8.5-10.1) mg/dL Magnesium 1.9 (1.8-2.4) mg/dL Imaging Data CT scan - abdomen: Radiologist's impression: ITS Impressions Duplex Scan Lower Extremity Artery 09/17/24 08:16 IMPRESSION: 1. Large left groin and proximal thigh hematoma without evidence of active extravasation. (Postprocedural hematoma) 2. 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 Abnormal biphasic waveform within distal femoral through calf arteries. Electronically authenticated by: TRAVIS EGAN Date: 09/17/2024 12:08 ADDENDUM: 09/17/24 1223 IMPRESSION: 1. Large left groin and proximal thigh hematoma without evidence of active extravasation. (Postprocedural hematoma) 2. 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 Abnormal biphasic waveform within distal femoral through calf arteries. Electronically authenticated by: TRAVIS EGAN Date: 09/17/2024 12:21 Aorta w/Runoff CTA 09/17/24 12:59 IMPRESSION: No acute infectious or inflammatory process in the abdomen and pelvis. Diffuse atherosclerotic disease. There is complete occlusion at the origin of the left superficial femoral artery. This artery shows a large amount of calcification throughout much of its course. There is reconstitution of this vessel by smaller arteries just above the knee. There is decreased but patent three-vessel runoff to both feet. Large disorganized hematoma in the left groin. There is no evidence of active bleeding. Electronically authenticated by: KOFI GAITAN Date: 09/17/2024 14:34 Discharge Plan Discharge Chief Complaint: Extremity Problem, Nontraumatic Clinical Impression: Hematoma Patient Disposition: Home, Self-Care Time of Disposition Decision: 16:01 Condition: Good Mode of Transportation: Private Vehicle Prescriptions / Home Meds: No Action allopurinol 300 mg tablet 300 mg PO Q24H amiodarone 200 mg tablet 200 mg PO Q24H carvedilol 25 mg tablet 25 mg PO Q12H famotidine 20 mg tablet 20 mg PO Q12H insulin glargine [Basaglar KwikPen U-100 Insulin] 100 unit/mL (3 mL) insulin pen 50 unit SUBCUT DAILY lisinopril 40 mg tablet 40 mg PO DAILY omeprazole 40 mg capsule,delayed release(DR/EC) 40 mg PO DAILY Xarelto 20 mg tablet 20 mg PO DAILY Rx Instructions: must administer with evening meal Print Language: Surinamese Instructions: Hematoma (ED) Referrals: Delonte Tejeda DO [Primary Care Provider] - 1 week
[2024-09-17 08:28] LABS: Basophils Percent Auto 0.2 % (0.2-2.0); Eosinophils Absolute Auto 0.1 10^3/uL (0.0-0.7); Eosinophils Percent Auto 1.6 % (0.9-7.0); Hematocrit 27.7 % (42.0-54.0); Hemoglobin 9.2 g/dL (14.0-18.0); Immature Granulocytes Abs Auto 0.04 10^3/uL (0.00-0.03); Immature Granulocytes Pct Auto 0.4 % (0.0-0.5); Lymphocytes Absolute Auto 1.1 10^3/uL (1.2-3.8); Lymphocytes Percent Auto 12.4 % (20.5-60.0); Mean Corpuscular HGB Conc 33.2 g/dL (29.9-35.2); Mean Platelet Volume 11.6 fL (9.5-13.5); Monocytes Percent Auto 11.1 % (1.7-12.0); Neutrophils Absolute Auto 6.7 10^3/uL (1.4-6.5); Neutrophils Percent Auto 74.3 % (43.0-75.0); Platelet Count 167 10^3/uL (150-450); Red Blood Count 2.63 10^6/uL (4.70-6.10); Red Cell Distribution Width 13.1 % (11.0-15.0)
[2024-09-17 08:39] LABS: Anion Gap 16.1; BUN Creatinine Ratio 16.4; Carbon Dioxide 24.5 mmol/L (21.0-32.0); Chloride 103 mmol/L (98-107); Estimated GFR (African America 49 (>=60 mL/min/1.73m^2); Estimated GFR (Non-African Ame 41 (>=60 mL/min/1.73m^2); Glucose 105 mg/dL (74-106); Potassium 4.6 mmol/L (3.5-5.1); Sodium 139 mmol/L (136-145)
[2024-09-17 08:40] VITALS: PULSE 67
[2024-09-17 08:44] LABS: Mean Corpuscular Volume 105.3 fL (80.0-94.0)
[2024-09-17 08:50] LABS: Magnesium 1.9 mg/dL (1.8-2.4)
[2024-09-17 12:52] VITALS: BP 165/75; O2SAT 98
--- NOTE | 2024-09-17 12:59 | CT_ITS ---
The [address] [address] Patient Name: DALE NUNN MRN: [id number] date: 1960 Sex: M Assigned Patient Location: ER Current Patient Location: ER Accession/Order Number: [id number] Exam Date: 09/17/2024 13:10 Report Date: 09/17/2024 14:34 At the request of: GERARD WANG Procedure: CT angio abd aorta runoff EXAM: CT angio abd aorta runoff HISTORY: Abnormal arterial duplex exam. COMPARISON: Correlation is made with the ultrasound duplex exam performed earlier the same day. TECHNIQUE: A contrast-enhanced CTA protocol scan was performed. Sagittal and coronal reformatted images were produced. Dose reduction techniques were achieved by using automated exposure control and/or adjustment of mA and/or kV according to patient size and/or use of iterative reconstruction technique. FINDINGS: The lung bases are very grossly clear. The visualized heart and great vessels are normal in size and configuration. There is calcified plaque in the coronary arteries and in the descending thoracic aorta. The liver, spleen, adrenal glands, pancreas, gallbladder are very grossly normal in appearance. Evaluation is limited due to beam hardening artifact. The kidneys enhance symmetrically and show no calcifications or hydronephrosis. The large and small bowel are normal caliber. A normal appendix is seen in the right lower quadrant. Pelvic organs and urinary bladder are normal. There is no free air or free fluid and no cavitary stranding is seen. There are bilateral L5 pars defects with a 1.1 cm anterolisthesis of L5 on S1. The abdominal aorta has a normal caliber. There is calcified plaque scattered throughout the abdominal aorta and branch vessels, but the branch vessels enhance and are grossly normal fashion. In the lower extremities, there are scattered areas of calcified plaque. In the left groin, at the bifurcation of the common femoral artery, there is complete occlusion of the superficial femoral artery, with a very large amount of calcified plaque in much of that artery. There is reconstitution via smaller arteries just above the knee. There is no occlusion of the arteries on the right side to the level of the knees. Normal trifurcation is seen in both knees. There is decreased but patent three-vessel runoff to both feet. In the left groin, there is a large disorganized hematoma. There is no clear evidence of active bleeding, however. There is subcutaneous edema in the left lower extremity, especially below the knee. CT/CT angio abd aorta runoff IMPRESSION: No acute infectious or inflammatory process in the abdomen and pelvis. Diffuse atherosclerotic disease. There is complete occlusion at the origin of the left superficial femoral artery. This artery shows a large amount of calcification throughout much of its course. There is reconstitution of this vessel by smaller arteries just above the knee. There is decreased but patent three-vessel runoff to both feet. Large disorganized hematoma in the left groin. There is no evidence of active bleeding. Electronically authenticated by: KOFI GAITAN Date: 09/17/2024 14:34
[2024-09-17 15:52] VITALS: BP 145/79; PULSE 67; O2SAT 100
--- NOTE | 2024-09-17 16:03 | PC.NURSE ---
pt is able to drink water and is being discharged home
== END 2024-09-17 16:20 | disposition home or self-care (01) ==
PROVIDERS: Emergency Provider Emergency Medicine; PCP Internal Medicine
DX: L76.32 Postprocedural hematoma of skin and subcutaneous tissue following other procedure (principal); I74.3 Embolism and thrombosis of arteries of the lower extremities; Z79.01 Long term (current) use of anticoagulants; Z98.890 Other specified postprocedural states; Y83.8 Other surgical procedures as the cause of abnormal reaction of the patient, or of later complication, without mention of misadventure at the time of the procedure
CPT/HCPCS: 36415; 75635; 80048; 83735; 85025; 93926; 99285; Q9966

== ENCOUNTER 2024-09-27 10:52 | Outpatient (OUT) | payer OTHER, SELFPAY ==
[2024-09-27 11:19] LABS: Basophils Percent Auto 0.6 % (0.2-2.0); Eosinophils Absolute Auto 0.1 10^3/uL (0.0-0.7); Hematocrit 29.1 % (42.0-54.0); Hemoglobin 9.5 g/dL (14.0-18.0); Immature Granulocytes Abs Auto 0.01 10^3/uL (0.00-0.03); Immature Granulocytes Pct Auto 0.2 % (0.0-0.5); Lymphocytes Absolute Auto 0.9 10^3/uL (1.2-3.8); Lymphocytes Percent Auto 19.6 % (20.5-60.0); Mean Corpuscular HGB Conc 32.6 g/dL (29.9-35.2); Mean Corpuscular Hemoglobin 33.8 pg (25.9-34.0); Mean Corpuscular Volume 103.6 fL (80.0-94.0); Mean Platelet Volume 10.6 fL (9.5-13.5); Monocytes Absolute Auto 0.5 10^3/uL (0.3-0.8); Monocytes Percent Auto 10.4 % (1.7-12.0); Neutrophils Absolute Auto 3.1 10^3/uL (1.4-6.5); Neutrophils Percent Auto 66.2 % (43.0-75.0); Platelet Count 261 10^3/uL (150-450); Red Blood Count 2.81 10^6/uL (4.70-6.10); Red Cell Distribution Width 12.8 % (11.0-15.0); White Blood Count 4.7 10^3/uL (4.0-11.0)
[2024-09-27 12:09] LABS: Percent Iron Saturation 23.9 %
[2024-09-28 03:15] LABS: Vitamin B12 290 pg/mL (232-1245)
== END 2024-09-27 10:53 | disposition home or self-care (01) ==
LOC: LAB 10:53
PROVIDERS: PCP Internal Medicine; Visit Provider Internal Medicine
DX: D50.0 Iron deficiency anemia secondary to blood loss (chronic) (principal)
CPT/HCPCS: 36415; 82607; 82728; 82746; 83540; 83550; 85025

== ENCOUNTER 2024-10-25 08:16 | Outpatient (OUT) | payer MEDICARE, SELFPAY ==
[2024-10-25 08:41] LABS: Basophils Percent Auto 0.6 % (0.2-2.0); Eosinophils Absolute Auto 0.1 10^3/uL (0.0-0.7); Eosinophils Percent Auto 1.9 % (0.9-7.0); Hematocrit 38.4 % (42.0-54.0); Hemoglobin 12.8 g/dL (14.0-18.0); Immature Granulocytes Abs Auto 0.02 10^3/uL (0.00-0.03); Immature Granulocytes Pct Auto 0.3 % (0.0-0.5); Lymphocytes Absolute Auto 1.1 10^3/uL (1.2-3.8); Lymphocytes Percent Auto 17.3 % (20.5-60.0); Mean Corpuscular HGB Conc 33.3 g/dL (29.9-35.2); Mean Corpuscular Volume 102.1 fL (80.0-94.0); Mean Platelet Volume 10.5 fL (9.5-13.5); Monocytes Absolute Auto 0.7 10^3/uL (0.3-0.8); Monocytes Percent Auto 10.9 % (1.7-12.0); Neutrophils Absolute Auto 4.4 10^3/uL (1.4-6.5); Platelet Count 160 10^3/uL (150-450); Red Blood Count 3.76 10^6/uL (4.70-6.10); White Blood Count 6.4 10^3/uL (4.0-11.0)
[2024-10-25 09:12] LABS: Anion Gap 13.4; BUN Creatinine Ratio 16.7; Calcium 9.5 mg/dL (8.5-10.1); Carbon Dioxide 27.2 mmol/L (21.0-32.0); Chloride 103 mmol/L (98-107); Estimated GFR (African America 60 (>=60 mL/min/1.73m^2); Estimated GFR (Non-African Ame 49 (>=60 mL/min/1.73m^2); Glucose 132 mg/dL (74-106); Magnesium 1.9 mg/dL (1.8-2.4); Potassium 4.6 mmol/L (3.5-5.1); Sodium 139 mmol/L (136-145)
== END 2024-10-25 08:17 | disposition home or self-care (01) ==
PROVIDERS: PCP Internal Medicine; Visit Provider Internal Medicine Cardiovascular Disease
DX: I48.0 Paroxysmal atrial fibrillation (principal)
CPT/HCPCS: 36415; 80048; 83735; 85025

== ENCOUNTER 2024-11-11 10:31 | Outpatient (OUT) | payer MEDICARE, SELFPAY ==
--- OUTSIDE RECORDS SUMMARY | 2024-11-11 10:55 | XMS_ITS | CCD ---
Author Organization [facility] Inform ion [facility] Care Team Providers Care Clearing Hand Name Role Phone Remberto Bonny Unavailable Bonny Raymundo Unavailable Malik MOLINA Attending Unavailable BALL PROVIDER, DELONTE Referring Unavaila ble DO Delonte Tejeda Primary Care Provider MD Deon Greene Attending Provider Delonte Tejeda [...] NONE LISTED Admitting Unavaila ble BALL, DR MARTEL Primary Care Unavailable REQUEST, DR RICARDO LISTED Admitting Unavaila ble REQUEST, DR RICARDO LISTED Attending Unavaila ble BALL, DR MARTEL Primary Care Unavailable BALL, DR MARTEL Consulting Unavailable REQUEST, NONE LISTED Admitting Unavaila ble REQUEST, NONE LISTED Attending Unavaila ble BALL, DR MARTEL Primary Care Unavailable DO Delonte Tejeda Primary Care Provider GABRIELLA Raymundo Attending Provider GeovaniDO Martel Primary Care Provider [phone] GeovaniDO Delonte Attending Provider [phone] Delonte Tejeda Admitting Unavailable Geovani, Delonte Primary Care Unavailable Geovani, Delonte Attending Unavailable Zackary, Bonny Gloria Admitting Unavailable Raymundo, Bonny Gloria Attending Unavailable Geovani Delonte Primary Care Unavailable REBECCA, FELIPE Attending Unavailable NARESH CLARK Attending Unavailable RICHELLEAZIKOLBY Attending Unavailable REBECCA, FELIPE Referring Unavailable REBECCA, FELIPE Referring Unavailable REBECCA, FELIPE Referring Unavailable REBECCA, FELIPE Attending Unavailable REBECCA, FELIPE Referring Unavailable REBECCA, FELIPE Attending Unavailable REBECCA, FELIPE Referring Unavailable REBECCA, FELIPE Referring Unavailable NAZZAL, SHELIA Referring Unavailable REBECCA, FELIPE Referring Unavailable REGINO, LACHO Attending Unavailable REBECCA, FELIPE Referring Unavailable CUPID, BOWLING BALL GRADER Attending Unavailable CUPID, BOWLING BALL GRADER Admitting Unavailable REBECCA, FELIPE Admitting Unavailable REBECCA, FELIPE Attending Unavailable MELA, SHAWN Attending Unavailable REBECCA, FELIPE Referring Unavailable REBECCA, FELIPE Admitting Unavailable Medications Current Medications Medication Drug Class(es) [...] 18, 2023 7:58pm take 1 tablet by eribetro th twice daily Carvedilol 25 MG TAKE [...] once daily Lisinopril Active 0 .ROUTE .COMPLEX 90 June 29, [...] the evening Pravastatin Active 0 .ROUTE .COMPLEX 90 February 23, 2024 1:45pm TAKE ONE TABLET [...] atrial fibrillation; Translations: [Paroxysmal atrial fibrillation] Onset: 10-11-2024 03-10-2024 Chronic Deficiency and other anemia (20 [...] sources) Long-term current use of insulin; Translations: [FDC (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] Episodic Other and [...] Onset: 01-14-2018 Episodic Other aftercare (6 sources) medical terminologist (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; Translations: [medical terminologist (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] Onset: 12-16-2023 Episodic [...] Test Name Value Interpretation Reference Range Facility [facility] 10-27-2024 [facility] Electrophysiology Consult Note Reason for visit: persistent AF 10/27/24 Pt here for DCCV 07/27/24 Pt is here for a three [...] any shortness of breath, chest pain, fatigue. [id number] at least 2 for hypertension, DM 2, [...] Determinants of Health Tobacco Use: High Risk (10/19/2024) Patient History Smoking Tobacco Use: Some Days [...] Year: No Utilities: Not At Risk (09/09/2024) [facility] Utilities Threatened with loss of utilities: No Health Literacy: Not on file Allergies: No Known Allergies Weight: 146kg Visit Vitals BP 126/68 Pulse 92 Resp 17 SpO2 99% Smoking Status Some Days Meds: No current facility-administered medications on file [...] 37.5mg , twice daily 270 tablet 3 co-enzyme Q-10 50 mg capsule Take 50 mg by mouth two times daily. cyanocobalamin (Vitamin B-12) 1,000 mcg tablet Take 1,000 mcg by mouth in the morning. furosemide (Lasix) [...] 0.5 mg(2 mg/1.5 mL) pen injector Inject 2 mg under the skin 1 (one) time per week. On Mondays famotidine (Pepcid) 20 mg tablet Take 1 tablet (2 (more content not included)... [facility] NURSNOTBogdan 10-27-2024 MARINE RN educated pt on d/ c instructions. This included: site care, limited physical activity, resume normal diet, future appointments, medications, and moderate sedation instructions. RN educated pt on when to notify physician and when to go to the hospital. RN encouraged pt to voice any questions or concerns, and answered any questions or concerns if pt verbalized. Pt was wheeled off of unit with all of belongings. Normal [facility] Orders Onlyon 10-19-2024 Orders Only [id number] Rosalind Rush rajiv [place] 1960 M Date Provider Department Center 10/19/2024 CONNIE [facility]NE [facility] Family History Problem Relation Age of Onset Cancer Mother Heart disease Mother Cancer Father Family Status - Relation Status Age at Mother Father [facility] Follow-Upon 09-29-2024 Follow-Up [id number] Rosalind Rush rajiv [place] 1960 M Date Provider Department Center 09/29/2024 166-NARESH CLARK [facility] Family History Problem Relation Age of Onset Cancer Mother Heart disease Mother Cancer Father Family Status - Relation Status Age at Mother Father Level of Service:72776 [place] OFFICE/OUTPATIENT ESTABLISHED MOD MDM 30 MIN Reason for Visit and Comments: Atrial Fibrillation [80] [facility] Telephoneon 09-15-2024 Telephone [id number] Canelo Rushclovis [place] 1960 [facility] Provider Department [place] 09/15/2024 GALLO DANIEL [facility] Family History Problem Relation Age of Onset Cancer Mother Heart disease Mother Cancer Father Family Status - Relation Status Age at Mother Father Reason for Visit and Comments: week f/u post ablation [Other] [facility] 36on 09-13-2024 36 Post Discharge Call Good morning, I am Anahi May, RN a lead nurse from [facility]. I am calling you to follow [...] discuss? Patient Name Salomón Rush Date 09/13/24 Normal [facility] Telephoneon 09-13-2024 Telephone [id number] Rosalind Rush 1960 M Date Provider Department Center 09/13/2024 [facility] Family History Problem Relation Age of Onset Cancer Mother Heart disease Mother Cancer Father Family Status - Relation Status Age at Mother Father Reason for Visit and Comments: Hospital Follow-up [832] Normal [facility] 30on 09-12-2024 30 The patient is [...] facility with appropriate resources Outcome: Progressing Normal [facility] HEMOGLOBIN AND HEMATOCRIT, B Vickie 09-12-2024 Hematocrit (Bld) [Volume fraction] 25.1 % Low 39.0-55.0 [facility] Comment on above: Performed By: #### L [id number] #### [facility] ([facility]AK[facility]) [address] [place] [address] Hemoglobin (Bld) [Mass/Vol] 8.6 g/dL Low 13.0-17.0 [facility] Comment on above: Performed By: #### L [id number] #### [facility] ([facility]) [address] [place] [address] Hematocrit (Bld) [Volume fraction] 25.3 % Low 39.0-55.0 [facility] Comment on above: Performed By: #### L [id number] #### [facility] ([facility]) [address] [place] [address] Hemoglobin (Bld) [Mass/Vol] 8.4 g/dL Low 13.0-17.0 [facility] Comment on above: Performed By: #### L [id number] #### [facility] ([facility]) [address] [place] [address] POCT GLUCOSE METER UNSOLICIT ED RESULTSon 09-12-2024 Glucose [Mass/Vol] 157 mg/dL High 70-105 [facility] Comment on above: Order Comment: Waive d Testing in the ED is performed under the ED CLIA certificate #[id number]. Result Comment: [email or web address] Performed By: #### L [id number] #### [facility] ([facility]) [address] [place] [address] 30on 09-11-2024 30 The patient is Moderately [...] and maintained or improved Outcome: Progressing Normal [facility] 30 The patient is Moderately Stable [...] facility with appropriate resources Outcome: Progressing Normal [facility] HEMOGLOBIN AND HEMATOCRIT, B LOODon 09-11-2024 Hematocrit (Bld) [Volume fraction] 25.7 % Low 39.0-55.0 [facility] Comment on above: Performed By: #### L [id number] ####[facility] ([facility])[address] [place] [address] Hemoglobin (Bld) [Mass/Vol] 8.6 g/dL Low 13.0-17.0 [facility] Comment on above: Performed By: #### L [id number] ####[facility] ([facility])[address] [place] [address] Hematocrit (Bld) [Volume fraction] 26.8 % Low 39.0-55.0 [facility] Comment on above: Performed By: #### L [id number] #### [facility] ([facility]) [address] [place] [address] Hemoglobin (Bld) [Mass/Vol] 9.0 g/dL Low 13.0-17.0 [facility] Comment on above: Performed By: #### L [id number] #### [facility] ([facility]) [address] [place] [address] Hematocrit (Bld) [Volume fraction] 26.6 % Low 39.0-55.0 [facility] Comment on above: Performed By: #### L [id number] ####[facility] ([facility])[address] [place] [address] Hemoglobin (Bld) [Mass/Vol] 8.9 g/dL Low 13.0-17.0 [facility] Comment on above: Performed By: #### L [id number] ####[facility] ([facility])[address] [place] [address] POCT GLUCOSE METER UNSOLICIT ED RESULTSon 09-11-2024 Glucose [Mass/Vol] 183 mg/dL High 70-105 [facility] Comment on above: Order Comment: Waive d Testing in the ED is performed under the ED CLIA certificate #[id number]. Result Comment: [email or web address] Performed By: #### L [id number] ####[facility] ([facility])[address] [place] [address] Glucose [Mass/Vol] 168 mg/dL High 70-105 [facility] Comment on above: Order Comment: Waive d Testing in the ED is performed under the ED CLIA certificate #[id number]. Result Comment: [email or web address] Performed By: #### L [id number] #### [facility] ([facility]) [address] [place] [address] Glucose [Mass/Vol] 264 mg/dL High 70-105 [facility] Comment on above: Order Comment: Waive d Testing in the ED is performed under the ED CLIA certificate #[id number]. Result Comment: [email or web address] Performed By: #### L [id number] #### [facility] ([facility]) [address] [place] [address] Glucose [Mass/Vol] 180 mg/dL High 70-105 [facility] Comment on above: Order Comment: Waive d Testing in the ED is performed under the ED CLIA certificate #[id number]. Result Comment: [email or web address] Performed By: #### L [id number] #### [facility] ([facility]) [address] [place] [address] 30on 09-10-2024 30 The patient is Moderately [...] and behaviors that affect risk of falls Bridger fall precautions as indicated by assessment Educate [...] and prevent overall improvement and discharge Normal [facility] 30 The patient is Moderately Stable [...] facility with appropriate resources Outcome: Progressing Normal [facility] CONSULTon 09-10-2024 CONSULT [facility] Vascular/Endovascular Surgery Division Reason For Consult Left [...] Unable to Pay for Housing in the [place] (more content not included)... [facility] CONSULT -- Attestation signed by Jay [...] vascular surgery input. Jay Soliman MD, MPH, [facility], [facility], [facility] Interventional Cardiology Pager Email: [email or web address] ADDENDUM: Discussed with EP colleague Dr. Fatima; [...] tablet 3 (more content not included)... Normal [facility] HEMOGLOBIN AND HEMATOCRIT, Godfrey Johnston 09-10-2024 Hematocrit (Bld) [Volume fraction] 26.4 % Low 39.0-55.0 [facility] Comment on above: Performed By: #### L [id number] #### [facility] ([facility]ER) [address] [place] [address] Hemoglobin (Bld) [Mass/Vol] 9.0 g/dL Low 13.0-17.0 [facility] Comment on above: Performed By: #### L [id number] #### [facility] ([facility]) [address] [place] [address] Hematocrit (Bld) [Volume fraction] 28.3 % Low 39.0-55.0 [facility] Comment on above: Performed By: #### L [id number] #### [facility] ([facility]) [address] [place] [address] Hemoglobin (Bld) [Mass/Vol] 9.8 g/dL Low 13.0-17.0 [facility] Comment on above: Performed By: #### L [id number] #### [facility] ([facility]) [address] [place] [address] Hematocrit (Bld) [Volume fraction] 30.2 % Low 39.0-55.0 [facility] Comment on above: Performed By: #### L [id number] ####[facility] (BEAKER)[address] [facility] [place] [address] Hemoglobin (Bld) [Mass/Vol] 9.9 g/dL Low 13.0-17.0 [facility] Comment on above: Performed By: #### L [id number] ####[facility] ([facility])[address] [facility] [place] [address] POCT GLUCOSE METER UNSOLICIT ED RESULTSon 09-10-2024 Glucose [Mass/Vol] 201 mg/dL High 70-105 [facility] Comment on above: Order Comment: Waive d Testing in the ED is performed under the ED CLIA certificate #[id number]. Result Comment: [email or web address] Performed By: #### L [id number] #### [facility] ([facility]) [address] [place] [address] Glucose [Mass/Vol] 168 mg/dL High 70-105 [facility] Comment on above: Order Comment: Waive d Testing in the ED is performed under the ED CLIA certificate #[id number]. Result Comment: [email or web address] [email or web address] Performed By: #### L [id number] #### [facility] ([facility]) [address] [place] [address] 30on 09-09-2024 30 The patient is Moderately [...] injury: Assess patient frequently for physical needs Bridger fall precautions as indicated by assessment Instruct [...] conditions and prevent exacerbation or deterioration Normal [facility] BASIC METABOLIC PANELon 11-2 Anion gap [Moles/Vol] 16 mmol/L Normal 7-20 [facility] Comment on above: Performed By: #### L [id number] #### [facility] ([facility]) [address] [place] [address] Calcium [Mass/Vol] 8.8 mg/dL Normal 8.6-10.3 [facility] Comment on above: Performed By: #### L [id number] #### [facility] ([facility]) [address] [place] [address] Chloride [Moles/Vol] 104 mmol/L Normal 98-107 [facility] Comment on above: Performed By: #### L [id number] #### [facility] ([facility]ER) [address] [place] [address] CO2 [Moles/Vol] 20 mmol/L Low 21-31 [facility] Comment on above: Performed By: #### L [id number] #### [facility] ([facility]) [address] [place] [address] Creatinine [Mass/Vol] 1.21 mg/dL Normal 0.70-1.30 [facility] Comment on above: Performed By: #### L [id number] #### [facility] ([facility]) [address] [place] [address] GLOMERULAR FILTRATION RATE ML/MIN/1.73 SQ M.PREDICTED 66.9 mL/min/1.73m*2 Normal >60.0 [place] Comment on above: Result Comment: The [facility]???s estimated glomerular filtration rate (eGFR) will [...] individuals. Performed By: #### L [id number] #### [facility] ([facility]) [address] [place] [address] Glucose [Mass/Vol] 179 mg/dL High 70-100 [facility] Comment on above: Performed By: #### L [id number] #### [facility] ([facility]) [address] [place] [address] Potassium [Moles/Vol] 4.7 mmol/L Normal 3.5-5.1 [facility] Comment on above: Performed By: #### L [id number] #### [facility] ([facility]) [address] [place] [address] Sodium [Moles/Vol] 135 mmol/L Low 136-145 [facility] Comment on above: Performed By: #### L [id number] #### [facility] ([facility]AKER) [address] [place] [address] Urea nitrogen [Mass/Vol] 24 mg/dL Normal 7-25 [facility] Comment on above: Performed By: #### L [id number] #### [facility] ([facility]AKER) [address] [place] [address] UREA NITROGEN/CREATININE (MASS RATIO) IN SER/PLAS 19.8 Normal [facility] Comment on above: Performed By: #### L [id number] #### [facility] ([facility]AKER) [address] [place] [address] CTA ABDOMEN PELVIS W IV CONT RASTon 09-09-2024 CTA ABDOMEN PELVIS W IV CONTRAST [...] report. Electronically signed: Chris De Leon. Normal [facility] CTA LOWER EXTREMITY LEFT W I V [...] report. Electronically signed: Chris De Leon. Normal [facility] HEMOGLOBIN AND HEMATOCRIT, B LOTillar 09-09-2024 Hematocrit (Bld) [Volume fraction] 34.7 % Low 39.0-55.0 [facility] Comment on above: Performed By: #### L [id number] #### [facility] ([facility]ER) [address] [place] [address] Hemoglobin (Bld) [Mass/Vol] 11.7 g/dL Low 13.0-17.0 [facility] Comment on above: Performed By: #### L [id number] #### [facility] ([facility]ER) [address] [place] [address] HPon 09-09-2024 [facility] Electrophysiology Consult Note Reason for visit: persistent [...] any shortness of breath, chest pain, fatigue. [id number] at least 2 for hypertension, DM 2, [...] Year: No Utilities: Not At Risk (09/09/2024) [facility] Utilities Threatened with loss of utilities: No [...] to time, pl (more content not included)... [facility] NURSNOTEon 09-09-2024 NURSNOTE Around 2109 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 writer paged cardiology to notify him that pt groin was getting increasingly larger, starting to swell and bruise more. Site was becoming firm. cattle trader said to take a picture of pt groin and attach it to pt chart, also to hold pressure for 15 minutes and that he would notify Dr. Lugo. Provider called 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 writer back to notify him that he was going to get vascular surgery involved. Around 2139 Vascular sx. PA came to bedside to assess pt. He said he would call Dr. Bruce and figure out a plan. Around 2199, PA told 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 writer that Dr. Bruce said to continue holding pressure until hematoma goes down. Around 2229, varnish finisher came to bedside to assess pt groin site. Fellow ordered STAT H&H, STAT CTA of abdomen and left lower extremity, and 0.5 mg of dilaudid q3 for patient's pain. [employer] and other RN's continuing to alternate holding pressure on groin site. [facility] NURSNOTE Pt came from EP lab from getting Afib Ablation. Left groin site was bruised. [employer] called somebody from EP lab to come take a look at it when patient first got to unit. It was soft and of no concern. Now it is bruised and hardened at the site. [employer] called someone from EP lab to take a look. 2 EP lab nurses came to hold pressure. 10 minutes later another staff member came up to assist. The area has softened and credit adjuster nurser has been instructed to check back in 10 minutes to make sure it has not hardened. Normal [facility] Orders Onlyon 09-09-2024 Orders Only [id number] Rosalind Rush [place] 1960 M Date Provider Department Center 09/09/20241986-GALLO [facility] Family History Problem Relation Age of Onset Cancer Mother Heart disease Mother Cancer Father Family Status - Relation Status Age at Mother Father Normal [facility] POCT GLUCOSE METER UNSOLICIT ED RESULTSon 09-09-2024 Glucose [Mass/Vol] 162 mg/dL High 70-105 [facility] Comment on above: Order Comment: Waive d Testing in the ED is performed under the ED CLIA certificate #[id number]. Result Comment: [email or web address] Performed By: #### L [id number] ####[facility] ([facility])[address] [facility] [place] [address] Glucose [Mass/Vol] 146 mg/dL High 70-105 [facility] Comment on above: Order Comment: Waive d Testing in the ED is performed under the ED CLIA certificate #[id number]. Result Comment: dspe ars Performed By: #### L [id number] #### [facility] ([place]) [address] [place] [address] Glucose [Mass/Vol] 126 mg/dL High 70-105 [facility] Comment on above: Order Comment: Waive d Testing in the ED is performed under the ED CLIA certificate #[id number]. Result Comment: acle ment Performed By: #### L [id number] #### [facility] ([place]) [address] [place] [address] PROTIME-INRon 09-09-2024 INR IN PPP BY COAGULATION ASSAY 1.16 High 0.90-1.10 [facility] Comment on above: Result Comment: ACCC [...] 1995;[id number]. Performed By: #### L [id number] #### [facility] (BEAKER) [address] [place] [address] PROTHROMBIN TIME (PT) IN PPP BY COAGULATION ASSAY 14.8 Seconds Normal 12.3-14.8 [facility] Comment on above: Performed By: #### L [id number] #### [facility] (BEAKER) [address] [place] [address] Prep for Procedureon 024 Prep for Procedure [id number] Rosalind Rush 1960 M Date Provider Department Center 09/09/20241986-GALLO [facility] Family History Problem Relation Age of Onset Cancer Mother Heart disease Mother Cancer Father Family Status - Relation Status Age at Mother Father Normal [facility] [id number] 09-01-2024 [id number] SURGERY DATE: 4 Medications to take Morning [...] THE FOLLOWING ARE NOT AVAILABLE: An adult meals on wheels driver over the age of 18, that [...] lenses. Do not wear perfume, make-up, nail spanish, or lotions on the day of your [...] need to make any changes, please call [phone]. Notify your surgeon if you develop any illness such as a cold, cough, fever, sore throat or vomiting between now and your surgery. Thank you for entrusting us with your care. [facility] Surgical Services Team [facility] [id number] Notified Gallo [phone] Fatima's clinic that Patient don't have meals on wheels driver to go home after surgery, but he will have a meals on wheels driver next day. He will be admitted per Gallo if no meals on wheels driver at same day. [facility] Prep for Procedureon 024 Prep for Procedure [id number] Rosalind Rush 1960 Provider Department Center 07/28/2024 Aniket-GALLO [facility] Family History Problem Relation Age of Onset Cancer Mother Heart disease Mother Cancer Father Family Status - Relation Status Age at Mother Father Normal [facility] Office Visiton 07-27-2024 Follow-up visit [id number] Rosalind Rush rajiv [place] 1960 Provider Department Center 07/27/2024 Freddy-FELIPE FATIMA DUDLEY Pérez Family History Problem Relation Age of Onset Cancer Mother Heart disease Mother Cancer Father Family Status - Relation Status Age at Mother Father Level of Service:44424 [place] OFFICE/OUTPATIENT ESTABLISHED LOW MDM [address] [facility] Glucose mean value [Mass/vol ume] in Blood Estimated from glycated hemoglobinon 06-23-2024 Average glucose Estimated from glycated hemoglobin (Bld) [Mass/Vol] 114 mg/dL [facility] - Hematology and Cell countson 06-23-2024 HbA1c (Bld) [Mass fraction] 5.6 % 4.5-6.2 [facility] Comment on above: ADA RECOMMENDED LIMI T 4.0 - 6.0ADA THERAPEUTIC TARGET < 7.0ACTION SUGGESTED> 7.0 Office Visiton 04-21-2024 Follow-up visit [id number] Rosalind Rush rajiv [place] 1960 [facility] Provider Department Center 04/21/2024 He-LACHO LACY DUDLEY Pérez Family History Problem Relation Age of Onset Cancer Mother Heart disease Mother Cancer Father Family Status - Relation Status Age at Mother Father Level of Service:36032 [place] POSTOP FOLLOW UP VISIT RELATED TO ORIGINAL PX Normal [facility] HPon 03-24-2024 [facility] Electrophysiology Consult Note Reason for visit: persistent [...] any shortness of breath, chest pain, fatigue. [id number] at least 2 for hypertension, DM 2, [...] on file Intimate Partner Violence: Unknown (12/11/2023) [facility] Fear of Current or [...] Neurologic Gait (more content not included)... Normal [facility] NURSNOTEihsan 03-24-2024 NURSNOTE RN educated pt on d/ c instructions. RN encouraged pt to voice any questions or concerns. Pt verbalizes no questions or concerns at this time. Pt was wheeled off of unit with all of belongings. Normal [facility] Orders Onlyon 03-16-2024 Orders Only [id number] Rosalind Rush rajiv C 1960 Date Provider Department Center 03/16/2024 CONNIE BYRNE [facility] Family History Problem Relation Age of Onset Cancer Mother Heart disease Mother Cancer Father Family Status - Relation Status Age at Mother Father Normal [facility] Office Visiton 01-20-2024 Follow-up visit [id number] Rosalind Rush rajiv C 1960 Date Provider Department Center 01/20/2024 Freddy-FELIPE FATIMA [facility] Family History Problem Relation Age of Onset Cancer Mother Heart disease Mother Cancer Father Family Status - Relation Status Age at Mother Father Level of Service:16247 CA OFFICE/OUTPATIENT NEW MODERATE MDM 45 MINUTES Reason for Visit and Comments: Follow-up [565781] Normal [facility] Orders Onlyon 01-20-2024 Orders Only [id number] Rosalind Rush rajiv C 1960 Provider Department Center 01/20/2024 FATEMEH RODAS [facility] Family History Problem Relation Age of Onset Cancer Mother Heart disease Mother Cancer Father Family Status - Relation Status Age at Mother Father Normal [facility] 29on 12-17-2023 29 Addended by: BETSY PABLO on: 12/17/2023 10:20 AM Modules accepted: Orders Normal [facility] Office Visiton 12-17-2023 Follow-up visit [id number] Rosalind Rush rajiv C 1960 Date Provider Department Center 12/17/2023 KOLBY ROSS DUD[facility] Family History Problem Relation Age of Onset Cancer Mother Heart disease Mother Cancer Father Family Status - Relation Status Age at Mother Father Level of Service:68462 CA OFFICE/OUTPATIENT NEW MODERATE MDM 45 MINUTES Normal [facility] echo transthoracicon [facility] echo transthoracic [facility] Main [place] [address] [place] [address] Echocardiogram Signed Patient: Salomón Rush MR#: [id number] 90 : 1960 Acct:[id number] Age/Sex: 62 / M ADM Date: 10/17/23 Loc: Room: Type: [facility] Attending Dr: Delonte Tejeda DO Ordering Provider: Delonte Tejeda DO Date of Service: 10/17/23/ [facility] echo transthoracic: Chronic Afib. SOB. Copies [...] By: Ortiz Singletary MD 10/17/23 1304 Normal [facility] XR hip LT min 2V(w/wo pelvis )*on 06-05-2023 XR hip LT min 2V(w/wo pelvis)* [facility] [address] XRay Report Signed Patient: Salomón Rush MR#: [id number] 90 : 1960 Acct:[id number] Age/Sex: 62 / M ADM Date: 06/05/23 [facility]: Type: [facility] Attending Dr: Bonny Raymundo APRN Copies to: [...] Calvin Thibodeaux M.D.06/05/2023 12:25 PM Dictation Location: [place] [address] Transcribed By: [facility] 06/05/23 1225 Dictated By: Calvin Thibodeaux II, MD 06/05/23 1223 Signed By: 06/05/23 1225 Normal [facility] XR hip LT min 2V(w/wo pelvis)* [facility] Other XR hip LT min 2V(w/wo pelvis)* [facility] Main [place] [employer] Other XR hip LT min 2V(w/wo pelvis)* [address] [place] [address] [employer] Other XR hip LT min 2V(w/wo pelvis)* [place] [address] [employer] Other XR hip LT min 2V(w/wo pelvis)* XRay Report [employer] Other XR hip LT min 2V(w/wo pelvis)* Signed [employer] Other XR hip LT min 2V(w/wo pelvis)* Patient: Salomón Rush MR#: [id number] [employer] Other XR hip LT min 2V(w/wo pelvis)* 90 [employer] Other XR hip LT min 2V(w/wo pelvis)* : 1960 Acct:[id number] [employer] Other XR hip LT min 2V(w/wo pelvis)* Age/Sex: 62 / M ADM Date: 06/05/23 [employer] Other XR hip LT min 2V(w/wo pelvis)* Loc: XDUCLY Room: Type: [facility] [employer] Other XR hip LT min 2V(w/wo pelvis)* Attending Dr: Bonny Raymundo [facility] [employer] Other XR hip LT min 2V(w/wo pelvis)* Copies to: Bonny Raymundo [employer] Other XR hip LT min 2V(w/wo pelvis)* Ordering Provider: Bonny Raymundo APRN [employer] Other XR hip LT min 2V(w/wo pelvis)* Date of Service: 06/05/23 [employer] Other XR hip LT min 2V(w/wo pelvis)* XR/XR hip LT min 2V(w/wo pelvis)*: Left hip pain [employer] Other XR hip LT min 2V(w/wo pelvis)* XR hip LT min 2V(w/wo pelvis)* 06/05/2023 11:57 AM [employer] Other XR hip LT min 2V(w/wo pelvis)* SIGNS AND SYMPTOMS: Left hip pain [employer] Other XR hip LT min 2V(w/wo pelvis)* PROTOCOL: Frontal radiograph of the pelvis with frontal and frog-leg views of the left hip [employer] Other XR hip LT min 2V(w/wo pelvis)* COMPARISON: None [employer] Other XR hip LT min 2V(w/wo pelvis)* FINDINGS: [employer] Other XR hip LT min 2V(w/wo pelvis)* There is mild narrowing of the joint spaces of the hips. Degenerative changes are noted in the [employer] Other XR hip LT min 2V(w/wo pelvis)* lumbar spine and sacroiliac joints. The bony ring of the pelvis is intact. There is no fracture or [employer] Other XR hip LT min 2V(w/wo pelvis)* dislocation. Vascular calcifications are present. [employer] Other XR hip LT min 2V(w/wo pelvis)* XR/XR hip LT min 2V(w/wo pelvis)* [employer] Other XR hip LT min 2V(w/wo pelvis)* IMPRESSION: [employer] Other XR hip LT min 2V(w/wo pelvis)* No fracture or dislocation. 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 [employer] Other XR hip LT min 2V(w/wo pelvis)* Impression dictated by: Calvin Thibodeaux M.D.06/05/2023 12:25 PM [employer] Other XR hip LT min 2V(w/wo pelvis)* Dictation Location: [facility]- [employer] Other XR hip LT min 2V(w/wo pelvis)* Transcribed By: NORMA 06/05/23 1225 [employer] Other XR hip LT min 2V(w/wo pelvis)* Dictated By: Calvin Thibodeaux II, MD 06/05/23 1223 [employer] Other XR hip LT min 2V(w/wo pelvis)* Signed By: [employer] Other XR hip LT min 2V(w/wo pelvis)* 06/05/23 1225 [employer] Other CBC AUTO DIFFon 02-21-2023 BASO # 0.1 103/ul Normal 0.0-0.1 [facility] Comment on above: Performed By: #### L IPID, T4, TSH, CMP #### [facility] [address] [place] [address] Dr. Rena Barone Basophils/100 WBC (Bld) 0.4 % Normal 0.2-2.0 [facility] Comment on above: Performed By: #### L IPID, T4, TSH, CMP #### [facility] [address] [place] [address] Dr. Rena Barone EO # 0.4 103/ul Normal 0.0-0.7 [facility] Comment on above: Performed By: #### L IPID, T4, TSH, CMP #### [facility] [address] [place] [address] Dr. Rena Barone Eosinophils/100 WBC (Bld) 3.1 % Normal 0.9-7.0 [facility] Comment on above: Performed By: #### L IPID, T4, TSH, CMP #### [facility] [address] [place] [address] Dr. Rena Barone Erythrocyte distribution width (RBC) [Ratio] 12.5 % Normal 11.0-15.0 [facility] Comment on above: Performed By: #### L IPID, T4, TSH, CMP #### [facility] [address] [place] [address] Dr. Rena Barone Hematocrit (Bld) [Volume fraction] 38.9 % Critically low 42.0-54.0 [facility] Comment on above: Performed By: #### L IPID, T4, TSH, CMP #### [facility] [address] [place] [address] [address] Rena Barone Hemoglobin (Bld) [Mass/Vol] 13.2 g/dL Critically low 14.0-18.0 [facility] Comment on above: Performed By: #### L IPID, T4, TSH, CMP #### [facility] [address] [place] [address] [address] Rena Barone IG # 0.05 10e3/ul Critically high 0.00-0.03 [facility] Comment on above: Performed By: #### L IPID, T4, TSH, CMP #### [facility] [address] [place] [address] Dr. Rena Barone IG % 0.4 % Normal 0.0-0.5 [facility] Comment on above: Performed By: #### L IPID, T4, TSH, CMP #### [facility] [address] [place] [address] Dr. Rena Barone LYMPH # 3.2 103/ul Normal 1.2-3.8 [facility] Comment on above: Performed By: #### L IPID, T4, TSH, CMP #### [facility] [address] [place] [address] Dr. Rena Barone Lymphocytes/100 WBC (Bld) 28.6 % Normal 20.5-60.0 [facility] Comment on above: Performed By: #### L IPID, T4, TSH, CMP #### [facility] [address] [place] [address] Dr. Rena Barone MANUAL DIFF REQ NO Normal [facility] Comment on above: Performed By: #### L IPID, T4, TSH, CMP #### [facility] [address] [place] [address] Dr. Rena Barone MCH (RBC) [Entitic mass] 33.7 pg Normal 25.9-34.0 [facility] Comment on above: Performed By: #### L IPID, T4, TSH, CMP #### [facility] [address] [place] [address] Dr. Rena Barone MCHC (RBC) [Mass/Vol] 33.9 g/dL Normal 29.9-35.2 [facility] Comment on above: Performed By: #### L IPID, T4, TSH, CMP #### [facility] [address] [place] [address] Dr. Rena Barone MCV (RBC) [Entitic vol] 99.2 fL Critically high 80.0-94.0 [facility] Comment on above: Performed By: #### L IPID, T4, TSH, CMP #### [facility] [address] [place] [address] Dr. Rena Barone MONO # 1.0 103/ul Critically high 0.3-0.8 [facility] Comment on above: Performed By: #### L IPID, T4, TSH, CMP #### [facility] [address] [place] [address] Dr. Rena Barone Monocytes/100 WBC (Bld) 8.8 % Normal 1.7-12.0 [facility] Comment on above: Performed By: #### L IPID, T4, TSH, CMP #### [facility] [address] [place] [address] Dr. Rena Barone NEUT # 6.6 103/ul Critically high 1.4-6.5 [facility] Comment on above: Performed By: #### L IPID, T4, TSH, CMP #### [facility] [address] [place] [address] Dr. Rena Barone Neutrophils/100 WBC (Bld) 58.7 % Normal 43.0-75.0 [facility] Comment on above: Performed By: #### L IPID, T4, TSH, CMP #### [facility] [address] [place] [address] Dr. Rena Barone Platelet mean volume (Bld) [Entitic vol] 11.2 fL Normal 9.5-13.5 [facility] Comment on above: Performed By: #### L IPID, T4, TSH, CMP #### [facility] [address] [place] [address] Dr. Rena Barone PLT 202 103/ul Normal 150-450 [facility] Comment on above: Performed By: #### L IPID, T4, TSH, CMP #### [facility] [address] [place] [address] [address] Rena Barone RBC 3.92 106/ul Critically low 4.70-6.10 [facility] Comment on above: Performed By: #### L IPID, T4, TSH, CMP #### [facility] [address] [place] [address] [address] Rena Barone WBC 11.3 103/ul Critically high 4.0-11.0 [facility] Comment on above: Performed By: #### L IPID, T4, TSH, CMP #### [facility] [address] [place] [address] [address] Rena Barone LIPID PROFILEon 02-21-2023 CHOL-HDL RATIO NORM SEE BELOW Normal [facility] Comment on above: Result Comment: 3.3 - 4.4 LOW RISK 4.4 - 7.1 AVERAGE RISK 7.1 - 11.0 MODERATE RISK >11.0 HIGH RISK Performed By: #### L IPID, T4, TSH, CMP #### [facility] [address] [place] [address] [address] Rena Barone Cholesterol [Mass/Vol] 127 mg/dL Normal <=200 [facility] Comment on above: Performed By: #### L IPID, T4, TSH, CMP #### [facility] [address] [place] [address] [address] Rena Barone Cholesterol in HDL [Mass/Vol] 24 mg/dL Critically low 40-60 [facility] Comment on above: Performed By: #### L IPID, T4, TSH, CMP #### [facility] [address] [place] [address] [address] Rena Barone Cholesterol in LDL [Mass/Vol] 58.4 mg/dL Normal [facility] Comment on above: Performed By: #### L IPID, T4, TSH, CMP #### [facility] [address] [place] [address] [address] Rena Barone Cholesterol.total/C holesterol in HDL [Mass ratio] 5.3 {ratio} Normal [facility] Comment on above: Performed By: #### L IPID, T4, TSH, CMP #### [facility] [address] [place] [address] [address] Rena Barone HDL NORMAL > or = 60 mg/dl - LO W CARDIOVASCULAR RISK <40 mg/dl - HIGH CARDIOVASCULAR RISK Normal [facility] Comment on above: Performed By: #### L IPID, T4, TSH, CMP #### [facility] [address] [address] [address] Rena Barone LDL CALC NORMAL SEE BELOW Normal [facility] Comment on above: Result Comment: <100 mg/dl OPTIMAL 100 - 129 mg/dl NEAR OR ABOVE OPTIMAL 130 - 159 mg/dl BORDERLINE HIGH 160 - 189 mg/dl HIGH >190 mg/dl VERY HIGH Performed By: #### L IPID, T4, TSH, CMP #### [facility] [address] [place] [address] Dr. Rena Barone Triglyceride [Mass/Vol] 223 mg/dL Critically high <=150 [facility] Comment on above: Performed By: #### L IPID, T4, TSH, CMP #### [facility] [address] [place] [address] Dr. Rena Barone VLDL CALC 44.6 mg/dL Normal [facility] Comment on above: Performed By: #### L IPID, T4, TSH, CMP #### [facility] [address] [place] [address] Dr. Rena Barone PROF 14(COMP METB)on 023 Albumin [Mass/Vol] 3.8 g/dL Normal 3.4-5.0 [facility] Comment on above: Performed By: #### L IPID, T4, TSH, CMP #### [facility] [address] [place] [address] Dr. Rena Barone Albumin/Globulin [Mass ratio] 0.9 {ratio} Normal [facility] Comment on above: Performed By: #### L IPID, T4, TSH, CMP #### [facility] [address] [place] [address] Dr. Rena Barone ALP [Catalytic activity/Vol] 99 U/L Normal 46-116 [facility] Comment on above: Performed By: #### L IPID, T4, TSH, CMP #### [facility] [address] [place] [address] Dr. Rena Barone ALT [Catalytic activity/Vol] 31 U/L Normal 16-63 [facility] Comment on above: Performed By: #### L IPID, T4, TSH, CMP #### [facility] [address] [place] [address] Dr. Rena Barone Anion gap [Moles/Vol] 10.3 mmol/L Normal [facility] Comment on above: Performed By: #### L IPID, T4, TSH, CMP #### [facility] [address] [place] [address] Dr. Rena Barone AST [Catalytic activity/Vol] 23 U/L Normal 15-37 [facility] Comment on above: Performed By: #### L IPID, T4, TSH, CMP #### [facility] [address] [place] [address] Dr. Rena Barone Bilirubin [Mass/Vol] 0.5 mg/dL Normal 0.2-1.0 [facility] Comment on above: Performed By: #### L IPID, T4, TSH, CMP #### [facility] [address] [place] [address] Dr. Rena Barone Calcium [Mass/Vol] 9.3 mg/dL Normal 8.5-10.1 [facility] Comment on above: Performed By: #### L IPID, T4, TSH, CMP #### [facility] [address] [place] [address] Dr. Rena Barone Chloride [Moles/Vol] 100 mmol/L Normal 98-107 [facility] Comment on above: Performed By: #### L IPID, T4, TSH, CMP #### [facility] [address] [place] [address] Dr. Rena Barone CO2 [Moles/Vol] 25.9 mmol/L Normal 21.0-32.0 [facility] Comment on above: Performed By: #### L IPID, T4, TSH, CMP #### [facility] [address] [place] [address] [address] Rena Barone Creatinine [Mass/Vol] 1.34 mg/dL Critically high 0.70-1.30 [facility] Comment on above: Performed By: #### L IPID, T4, TSH, CMP #### [facility] [address] [place] [address] Dr. Rena Barone EGFR-AF BANGLADESHI >60 Normal >=60 [facility] Comment on above: Performed By: #### L IPID, T4, TSH, CMP #### [facility] [address] [place] [address] Dr. Rena Barone EGFR-NON AF BANGLADESHI 54 mL/min/1.73m2 Critically low >=60 [facility] Comment on above: Performed By: #### L IPID, T4, TSH, CMP #### [facility] [address] [place] [address] Dr. Rena Barone Globulin (S) [Mass/Vol] 4.1 g/dL Normal [facility] Comment on above: Performed By: #### L IPID, T4, TSH, CMP #### [facility] [address] [place] [address] Dr. Rena Barone Glucose [Mass/Vol] 108 mg/dL Critically high 74-106 T [facility] Comment on above: Performed By: #### L IPID, T4, TSH, CMP #### [facility] [address] [place] [address] Dr. Rena Barone Potassium [Moles/Vol] 4.2 mmol/L Normal 3.5-5.1 [facility] Comment on above: Performed By: #### L IPID, T4, TSH, CMP #### [facility] [address] [place] [address] Dr. Rena Barone Protein [Mass/Vol] 7.9 g/dL Normal 6.4-8.2 [facility] Comment on above: Performed By: #### L IPID, T4, TSH, CMP #### [facility] [address] [place] [address] Dr. Rena Barone Sodium [Moles/Vol] 132 mmol/L Critically low 136-145 [facility] Comment on above: Performed By: #### L IPID, T4, TSH, CMP #### [facility] [address] [address] [address] Rena Barone Urea nitrogen [Mass/Vol] 30.0 mg/dL Critically high 7.0-18.0 [facility] Comment on above: Performed By: #### L IPID, T4, TSH, CMP #### [facility] [address] [place] [address] Dr. Rena Barone Urea nitrogen/Creatinine [Mass ratio] 22.4 mg/mg Normal [facility] Comment on above: Performed By: #### L IPID, T4, TSH, CMP #### [facility] [address] [place] [address] Dr. Rena Barone T4on 02-21-2023 T4 [Mass/Vol] 5.20 ug/dL Normal 4.50-12.[address] [facility] Comment on above: Performed By: #### L IPID, T4, TSH, CMP #### [facility] [address] [place] [address] Dr. Rena Barone TSHon 02-21-2023 TSH 2.379 uIU/mL Normal 0.358-3.[address] [facility] Comment on above: Performed By: #### L IPID, T4, TSH, CMP #### [facility] [address] [place] [address] Dr. Rena Barone GLYCOHEMOGLOBIN A1Con 2022 ADA RECOMMENDATION SEE BELOW Normal [facility] Comment on above: Result Comment: ADA RECOMMENDED LIMIT 4.0 - 6.0 ADA THERAPEUTIC TARGET < 7.0 ACTION SUGGESTED > 7.0 Performed By: #### L IPID, T4, TSH, CMP #### [facility] [address] [place] [address] Dr. Rena Barone Glucose [Mass/Vol] 169 mg/dL Normal [facility] Comment on above: Performed By: #### L IPID, T4, TSH, CMP #### [facility] [address] [address] [address] Rena Barone HbA1c (Bld) [Mass fraction] 7.5 % Critically high 4.5-6.2 [facility] Comment on above: Performed By: #### L IPID, T4, TSH, CMP #### [facility] [address] [address] [address] Rena Barone Glucose Glucometer (BldC) [M ass/Vol]Ordered By: Deon Greene on 10-07-2022 Glucose [Mass/Vol] 170 mg/dL [facility] Comment on above: Random Glucose Refer ence Range is dependent on time and content of last meal. Glucose of more than 200 mg/dL in a nonstressed, ambulatory subject supports the diagnosis of Diabetes Mellitus. GLYCOHEMOGLOBIN A1Con 2021 ADA RECOMMENDATION SEE BELOW Normal [facility] Comment on above: Result Comment: ADA RECOMMENDED LIMIT 4.0 - 6.0 ADA THERAPEUTIC TARGET < 7.0 ACTION SUGGESTED > 7.0 Performed By: #### L IPID, T4, TSH, CMP #### [facility] [address] [address] [address] Rena Barone Glucose [Mass/Vol] 160 mg/dL Normal [facility] Comment on above: Performed By: #### L IPID, T4, TSH, CMP #### [facility] [address] [address] [address] Rena Barone HbA1c (Bld) [Mass fraction] 7.2 % Critically high 4.5-6.2 The [facility] Comment on above: Performed By: #### L IPID, T4, TSH, CMP #### [facility] [address] [address] [address] Rena Barone Physician Referralon 022 Physician Referral [phone] [id number] Normal [facility] COVID Quick Testingon 2021 Result Positive [employer] Other METHYLMALONIC ACID (MMA)on 0 03-23-2022 Methylmalonic Acid, Serum 210 nmol/L Normal 0-378 [facility] Comment on above: Performed By: #### L IPID, T4, TSH, CMP #### [facility] [address] [place] [address] Dr. Rena Barone FOLATE ([facility])on 2 Folate 16.6 ng/mL Normal >3.0 [facility] Comment on above: Result Comment: A se rum folate concentration of less than 3.1 ng/mL is considered to represent clinical deficiency. Performed By: #### L IPID, T4, TSH, CMP #### [facility] [address] [place] [address] Dr. Rena Barone GLYCOHEMOGLOBIN A1Con 2021 ADA RECOMMENDATION SEE BELOW Normal [facility] Comment on above: Result Comment: ADA RECOMMENDED LIMIT 4.0 - 6.0 ADA THERAPEUTIC TARGET < 7.0 ACTION SUGGESTED > 7.0 Performed By: #### L IPID, T4, TSH, CMP #### [facility] [address] [address] [address] Rena Barone Glucose [Mass/Vol] 160 mg/dL Normal [facility] Comment on above: Performed By: #### L IPID, T4, TSH, CMP #### [facility] [address] [place] [address] Dr. Rena Barone HbA1c (Bld) [Mass fraction] 7.2 % Critically high 4.5-6.2 [facility] Comment on above: Performed By: #### L IPID, T4, TSH, CMP #### [facility] [address] [place] [address] Dr. Rena Barone RETICULOCYTEon 03-15-2022 RETIC 1.64 % Normal 0.60-3.10 [facility] Comment on above: Performed By: #### R ETIC #### [facility] [address] [place] [address] Dr. Rena Barone VITAMIN B12on 03-15-2022 Cobalamin (Vitamin B12) [Mass/Vol] 386.0 pg/mL Normal 193.0-986.0 [facility] Comment on above: Performed By: #### L IPID, T4, TSH, CMP #### [facility] [address] [place] [address] Dr. Rena Barone CBC AUTO DIFFon 02-26-2022 BASO # 0.0 103/ul Normal 0.0-0.1 [facility] Comment on above: Performed By: #### L IPID, T4, TSH, CMP #### [facility] Laboratory [address] [place] [address] Dr. Rena Barone Basophils/100 WBC (Bld) 0.3 % Normal 0.2-2.0 The [facility] Comment on above: Performed By: #### L IPID, T4, TSH, CMP #### [facility] [address] [place] [address] Dr. Rena Barone EO # 0.2 103/ul Normal 0.0-0.7 The [facility] Comment on above: Performed By: #### L IPID, T4, TSH, CMP #### [facility] [address] [place] [address] Dr. Rena Barone Eosinophils/100 WBC (Bld) 2.0 % Normal 0.9-7.0 The [facility] Comment on above: Performed By: #### L IPID, T4, TSH, CMP #### [facility] [address] [place] [address] Dr. Rena Barone Erythrocyte distribution width (RBC) [Ratio] 12.9 % Normal 11.0-15.0 The [facility] Comment on above: Performed By: #### L IPID, T4, TSH, CMP #### [facility] [address] [place] [address] Dr. Rena Barone Hematocrit (Bld) [Volume fraction] 38.1 % Critically low 42.0-54.0 The [facility] Comment on above: Performed By: #### L IPID, T4, TSH, CMP #### [facility] [address] [place] [address] Dr. Rena Barone Hemoglobin (Bld) [Mass/Vol] 12.5 g/dL Critically low 14.0-18.0 The [facility] Comment on above: Performed By: #### L IPID, T4, TSH, CMP #### [facility] [address] [place] [address] Dr. Rena Barone IG # 0.03 10e3/ul Normal 0.00-0.03 [facility] Comment on above: Performed By: #### L IPID, T4, TSH, CMP #### [facility] [address] [place] [address] Dr. Rena Barone IG % 0.3 % Normal 0.0-0.5 [facility] Comment on above: Performed By: #### L IPID, T4, TSH, CMP #### [facility] [address] [place] [address] Dr. Rena Barone LYMPH # 1.8 103/ul Normal 1.2-3.8 [facility] Comment on above: Performed By: #### L IPID, T4, TSH, CMP #### [facility] [address] [place] [address] Dr. Rena Barone Lymphocytes/100 WBC (Bld) 18.9 % Critically low 20.5-60.0 [facility] Comment on above: Performed By: #### L IPID, T4, TSH, CMP #### [facility] [address] [place] [address] Dr. Rena Barone MANUAL DIFF REQ NO Normal [facility] Comment on above: Performed By: #### L IPID, T4, TSH, CMP #### [facility] [address] [place] [address] Dr. Rena Barone MCH (RBC) [Entitic mass] 33.3 pg Normal 25.9-34.0 [facility] Comment on above: Performed By: #### L IPID, T4, TSH, CMP #### [facility] [address] [place] [address] Dr. Rena Barone MCHC (RBC) [Mass/Vol] 32.8 g/dL Normal 29.9-35.2 [facility] Comment on above: Performed By: #### L IPID, T4, TSH, CMP #### [facility] [address] [place] [address] Dr. Rena Barone MCV (RBC) [Entitic vol] 101.6 fL Critically high 80.0-94.0 The [facility] Comment on above: Performed By: #### L IPID, T4, TSH, CMP #### [facility] [address] [place] [address] Dr. Rena Barone MONO # 0.8 103/ul Normal 0.3-0.8 The [facility] Comment on above: Performed By: #### L IPID, T4, TSH, CMP #### [facility] [address] [place] [address] Dr. Rena Barone Monocytes/100 WBC (Bld) 9.0 % Normal 1.7-12.0 The [facility] Comment on above: Performed By: #### L IPID, T4, TSH, CMP #### [facility] [address] [place] [address] Dr. Rena Barone NEUT # 6.5 103/ul Normal 1.4-6.5 The [facility] Comment on above: Performed By: #### L IPID, T4, TSH, CMP #### [facility] [address] [place] [address] Dr. Rena Barone Neutrophils/100 WBC (Bld) 69.5 % Normal 43.0-75.0 The [facility] Comment on above: Performed By: #### L IPID, T4, TSH, CMP #### [facility] [address] [place] [address] Dr. Rena Barone Platelet mean volume (Bld) [Entitic vol] 12.0 fL Normal 9.5-13.5 The [facility] Comment on above: Performed By: #### L IPID, T4, TSH, CMP #### [facility] [address] [place] [address] Dr. Rena Barone PLT 166 103/ul Normal 150-450 The [facility] Comment on above: Performed By: #### L IPID, T4, TSH, CMP #### [facility] [address] [place] [address] Dr. Rena Barone RBC 3.75 106/ul Critically low 4.70-6.10 The [facility] Comment on above: Performed By: #### L IPID, T4, TSH, CMP #### [facility] [address] [address] [address] Rena Barone WBC 9.3 103/ul Normal 4.0-11.0 [facility] Comment on above: Performed By: #### L IPID, T4, TSH, CMP #### [facility] [address] [address] [address] Rena Barone LIPID PROFILEon 02-26-2022 CHOL-HDL RATIO NORM SEE BELOW Normal [facility] Comment on above: Result Comment: 3.3 - 4.4 LOW RISK 4.4 - 7.1 AVERAGE RISK 7.1 - 11.0 MODERATE RISK >11.0 HIGH RISK Performed By: #### L IPID, T4, TSH, CMP #### [facility] [address] [address] [address] Rena Barone Cholesterol [Mass/Vol] 133 mg/dL Normal <=200 [facility] Comment on above: Performed By: #### L IPID, T4, TSH, CMP #### [facility] [address] [address] [address] Rena Barone Cholesterol in HDL [Mass/Vol] 29 mg/dL Critically low 40-60 [facility] Comment on above: Performed By: #### L IPID, T4, TSH, CMP #### [facility] [address] [address] [address] Rena Barone Cholesterol in LDL [Mass/Vol] 66.8 mg/dL Normal [facility] Comment on above: Performed By: #### L IPID, T4, TSH, CMP #### [facility] [address] [address] [address] Rena Barone Cholesterol.total/C holesterol in HDL [Mass ratio] 4.6 {ratio} Normal [facility] Comment on above: Performed By: #### L IPID, T4, TSH, CMP #### [facility] [address] [address] [address] Rena Barone HDL NORMAL > or = 60 mg/dl - LO W CARDIOVASCULAR RISK <40 mg/dl - HIGH CARDIOVASCULAR RISK Normal [facility] Comment on above: Performed By: #### L IPID, T4, TSH, CMP #### [facility] [address] [address] [address] Rena Barone LDL CALC NORMAL SEE BELOW Normal [facility] Comment on above: Result Comment: <100 mg/dl OPTIMAL 100 - 129 mg/dl NEAR OR ABOVE OPTIMAL 130 - 159 mg/dl BORDERLINE HIGH 160 - 189 mg/dl HIGH >190 mg/dl VERY HIGH Performed By: #### L IPID, T4, TSH, CMP #### [facility] [address] [address] [address] Rena Barone Triglyceride [Mass/Vol] 186 mg/dL Critically high <=150 [facility] Comment on above: Performed By: #### L IPID, T4, TSH, CMP #### [facility] [address] [place] [address] Dr. Rena Barone VLDL CALC 37.2 mg/dL Normal [facility] Comment on above: Performed By: #### L IPID, T4, TSH, CMP #### [facility] [address] [place] [address] Dr. Rena Barone PROF 14(COMP METB)on 022 Albumin [Mass/Vol] 3.8 g/dL Normal 3.4-5.0 [facility] Comment on above: Performed By: #### L IPID, T4, TSH, CMP #### [facility] [address] [place] [address] Dr. Rena Barone Albumin/Globulin [Mass ratio] 1.0 {ratio} Normal [facility] Comment on above: Performed By: #### L IPID, T4, TSH, CMP #### [facility] [address] [place] [address] Dr. Rena Barone ALP [Catalytic activity/Vol] 83 U/L Normal 46-116 [facility] Comment on above: Performed By: #### L IPID, T4, TSH, CMP #### [facility] [address] [place] [address] Dr. Rena Barone ALT [Catalytic activity/Vol] 28 U/L Normal 16-63 [facility] Comment on above: Performed By: #### L IPID, T4, TSH, CMP #### [facility] [address] [place] [address] Dr. Rena Barone Anion gap [Moles/Vol] 15.9 mmol/L Normal [facility] Comment on above: Performed By: #### L IPID, T4, TSH, CMP #### [facility] [address] [place] [address] Dr. Rena Barone AST [Catalytic activity/Vol] 16 U/L Normal 15-37 [facility] Comment on above: Performed By: #### L IPID, T4, TSH, CMP #### [facility] [address] [place] [address] Dr. Rena Barone Bilirubin [Mass/Vol] 0.6 mg/dL Normal 0.2-1.0 [facility] Comment on above: Performed By: #### L IPID, T4, TSH, CMP #### [facility] [address] [place] [address] Dr. Rena Barone Calcium [Mass/Vol] 8.9 mg/dL Normal 8.5-10.1 [facility] Comment on above: Performed By: #### L IPID, T4, TSH, CMP #### [facility] [address] [place] [address] Dr. Rena Barone Chloride [Moles/Vol] 101 mmol/L Normal 98-107 [facility] Comment on above: Performed By: #### L IPID, T4, TSH, CMP #### [facility] [address] [place] [address] Dr. Rena Barone CO2 [Moles/Vol] 24.4 mmol/L Normal 21.0-32.0 The [facility] Comment on above: Performed By: #### L IPID, T4, TSH, CMP #### [facility] [address] [place] [address] Dr. Rena Barone Creatinine [Mass/Vol] 1.09 mg/dL Normal 0.70-1.30 [facility] Comment on above: Performed By: #### L IPID, T4, TSH, CMP #### [facility] [address] [place] [address] Dr. Rena Barone EGFR-AF BANGLADESHI >60 Normal >=60 [facility] Comment on above: Performed By: #### L IPID, T4, TSH, CMP #### [facility] [address] [place] [address] Dr. Rena Barone EGFR-NON AF BANGLADESHI >60 Normal >=60 [facility] Comment on above: Performed By: #### L IPID, T4, TSH, CMP #### [facility] [address] [place] [address] Dr. Rena Barone Globulin (S) [Mass/Vol] 3.8 g/dL Normal [facility] Comment on above: Performed By: #### L IPID, T4, TSH, CMP #### [facility] [address] [place] [address] Dr. Rena Barone Glucose [Mass/Vol] 130 mg/dL Critically high 74-106 [facility] Comment on above: Performed By: #### L IPID, T4, TSH, CMP #### [facility] [address] [place] [address] Dr. Rena Barone Potassium [Moles/Vol] 4.3 mmol/L Normal 3.5-5.1 [facility] Comment on above: Performed By: #### L IPID, T4, TSH, CMP #### [facility] [address] [place] [address] Dr. Rena Barone Protein [Mass/Vol] 7.6 g/dL Normal 6.4-8.2 [facility] Comment on above: Performed By: #### L IPID, T4, TSH, CMP #### [facility] [address] [place] [address] Dr. Rena Barone Sodium [Moles/Vol] 137 mmol/L Normal 136-145 [facility] Comment on above: Performed By: #### L IPID, T4, TSH, CMP #### [facility] [address] [place] [address] Dr. Rena Barone Urea nitrogen [Mass/Vol] 26.0 mg/dL Critically high 7.0-18.0 [facility] Comment on above: Performed By: #### L IPID, T4, TSH, CMP #### [facility] [address] [address] [address] Rena Barone Urea nitrogen/Creatinine [Mass ratio] 23.9 mg/mg Normal [facility] Comment on above: Performed By: #### L IPID, T4, TSH, CMP #### [facility] [address] [address] [address] Rena Barone T4on 02-26-2022 T4 [Mass/Vol] 4.20 ug/dL Critically low 4.50-12.10 [facility] Comment on above: Performed By: #### L IPID, T4, TSH, CMP #### [facility] [address] [address] [address] Rena Barone TSHon 02-26-2022 TSH 3.428 uIU/mL Normal 0.358-3.740 [facility] Comment on above: Performed By: #### L IPID, T4, TSH, CMP #### [facility] [address] [address] [address] Rena Barone TSH RANGE SEE BELOW Normal [facility] Comment on above: Result Comment: <0.3 4 UIU/ml HYPERTHYROID 0.34-5.60 UIU/ml EUTHYROID >5.60 UIU/ml HYPOTHYROID Performed By: #### L IPID, T4, TSH, CMP #### [facility] [address] [address] [address] Rena Barone Vital Signs Date Time Vital Sign Value Performing Clinician Facility 07-16-2024 09:00-0400 Body mass index (BMI) [Ratio] 45.3 kg/m2 [facility] 07-16-2024 09:00-0400 Diastolic blood pressure 69 mm[Hg] [facility] 07-16-2024 09:00-0400 Heart rate 75 /min [facility] 07-16-2024 09:00-0400 Systolic blood pressure 108 mm[Hg] [facility] 07-13-2024 22:16-0400 Body height 177.8 cm [facility] 07-13-2024 22:16-0400 Body weight 143.33 kg [facility] 03-12-2024 09:46-0400 Body height 177.8 cm [facility] 03-12-2024 09:46-0400 Body mass index (BMI) [Ratio] 45.3 kg/m2 [facility] 03-12-2024 09:46-0400 Body weight 143.5 kg [facility] 03-12-2024 09:46-0400 Diastolic blood pressure 69 mm[Hg] [facility] 03-12-2024 09:46-0400 Heart rate 80 /min [facility] 03-12-2024 09:46-0400 Respiratory rate 16 /min [facility] 03-12-2024 09:46-0400 Systolic blood pressure 107 mm[Hg] [facility] 11-07-2023 09:00-0500 Body height 177.8 cm Delonte Ball Other [facility] Other 11-07-2023 09:00-0500 Body mass index (BMI) [Ratio] 45.11 kg/m2 Delonte Ball Other [facility] Other 11-07-2023 09:00-0500 Body weight 142.61 kg Delonte Ball Other [facility] Other 11-07-2023 09:00-0500 Diastolic blood pressure 86 mm[Hg] Delonte Ball Other [facility] Other 11-07-2023 09:00-0500 Respiratory rate 16 /min Delonte Ball Other [facility] [facility] Other 11-07-2023 09:00-0500 Systolic blood pressure 131 mm[Hg] Delonte Ball Other [facility] Other 07-25-2023 09:00-0400 Body height 177.8 cm Delonte Ball Other [employer] Other 07-25-2023 09:00-0400 Body mass index (BMI) [Ratio] 46.54 kg/m2 Delonte Ball Other [employer] Other 07-25-2023 09:00-0400 Body weight 147.15 kg Delonte Ball Other [employer] Other 07-25-2023 09:00-0400 Diastolic blood pressure 83 mm[Hg] Delonte Ball Other [employer] Other 07-25-2023 09:00-0400 Respiratory rate 16 /min Delonte Ball Other [employer] Other 07-25-2023 09:00-0400 Systolic blood pressure 130 mm[Hg] Delonte Ball Other [employer] Other 06-05-2023 11:25-0400 Body height 177.8 cm Bonny Raymundo Other [employer] Other 06-05-2023 11:25-0400 Body mass index (BMI) [Ratio] 46.48 kg/m2 Bonny Raymundo Other [employer] Other 06-05-2023 11:25-0400 Body temperature 98.2 [degF] Bonny Raymundo Other [employer] Other 06-05-2023 11:25-0400 Body weight 146.97 kg Bonny Raymundo Other [facility] Other 06-05-2023 11:25-0400 Diastolic blood pressure 61 mm[Hg] Bonny Raymundo Other [employer] Other 06-05-2023 11:25-0400 Respiratory rate 18 /min Bonny Raymundo Other [employer] Other 06-05-2023 11:25-0400 SaO2% (BldA) [Mass fraction] 97 % Bonny Raymundo Other [employer] Other 06-05-2023 11:25-0400 Systolic blood pressure 109 mm[Hg] Bonny Raymundo Other [employer] Other 02-14-2023 11:00-0400 Body height 177.8 cm Bonny Raymundo Other [employer] Other 02-14-2023 11:00-0400 Body mass index (BMI) [Ratio] 47.06 kg/m2 Bonny Raymundo Other [employer] Other 02-14-2023 11:00-0400 Body temperature 98 [degF] Bonny Raymundo Other [employer] Other 02-14-2023 11:00-0400 Body weight 148.78 kg Bonny Raymundo Other [employer] Other 02-14-2023 11:00-0400 Diastolic blood pressure 73 mm[Hg] Bonny Raymundo Other [employer] Other 02-14-2023 11:00-0400 Respiratory rate 18 /min Bonny Raymundo Other [employer] Other 02-14-2023 11:00-0400 SaO2% (BldA) [Mass fraction] 96 % Bonny Raymundo Other [employer] Other 02-14-2023 11:00-0400 Systolic blood pressure 130 mm[Hg] Bonny Raymundo Other [facility] Other 01-09-2023 12:30-0400 Body height 177.8 cm Delonte Ball Other [employer] Other 01-09-2023 12:30-0400 Body mass index (BMI) [Ratio] 48.18 kg/m2 Delonte Ball Other [facility] Other 01-09-2023 12:30-0400 Body weight 152.32 kg Delonte Ball Other [facility] Other 01-09-2023 12:30-0400 Diastolic blood pressure 78 mm[Hg] Delonte Ball Other [facility] Other 01-09-2023 12:30-0400 Respiratory rate 16 /min Delonte Ball Other [employer] Other 01-09-2023 12:30-0400 Systolic blood pressure 124 mm[Hg] Delonte Ball Other [employer] Other 11-01-2022 11:00-0500 Body height 177.8 cm Delonte Ball Other [employer] Other 11-01-2022 11:00-0500 Body mass index (BMI) [Ratio] 48.58 kg/m2 Delonte Ball Other [facility] Other 11-01-2022 11:00-0500 Body weight 153.59 kg Delonte Ball Other [employer] Other 11-01-2022 11:00-0500 Diastolic blood pressure 76 mm[Hg] Delonte Ball Other [facility] Other 11-01-2022 11:00-0500 Respiratory rate 16 /min Delonte Ball Other [facility] Other 11-01-2022 11:00-0500 Systolic blood pressure 122 mm[Hg] Delonte Ball Other [facility] Other 10-07-2022 10:20-0500 Diastolic blood pressure 68 mm[Hg] DO Delonte Ball Work Phone: [facility] 10-07-2022 10:20-0500 Heart rate 93 /min DO Delonte Ball Work Phone: [facility] 10-07-2022 10:20-0500 Respiratory rate 16 /min DO Delonte Ball Work Phone: [facility] 10-07-2022 10:20-0500 SaO2% (BldA) [Mass fraction] 98 % DO Delonte Ball Work Phone: [facility] 10-07-2022 10:20-0500 Systolic blood pressure 114 mm[Hg] DO Delonte Ball Work Phone: [facility] 10-07-2022 08:37-0500 Body height 176.53 cm DO Delonte Ball Work Phone: [facility] 10-07-2022 08:37-0500 Body temperature 98.7 [degF] DO Delonte Ball Work Phone: [facility] 10-07-2022 08:37-0500 Body weight 147.41 kg DO Delonte Ball Work Phone: [facility] 05-19-2022 12:40-0400 Body height 177.8 cm Bonny Raymundo Other [facility] Other 05-19-2022 12:40-0400 Body mass index (BMI) [Ratio] 45.91 kg/m2 Bonny Raymundo Other [employer] Other 05-19-2022 12:40-0400 Body temperature 100.6 [degF] Bonny Raymundo Other [facility] Other 05-19-2022 12:40-0400 Body weight 145.15 kg Bonny Raymundo Other [facility] Other 05-19-2022 12:40-0400 SaO2% (BldA) [Mass fraction] 98 % Bonny Raymundo Other [facility] Other 08-12-2021 12:30-0400 Body temperature 98.2 [degF] Bonny Ginty Other [facility] Other 08-12-2021 12:30-0400 SaO2% (BldA) [Mass fraction] 92 % Bonny Ginty Other [employer] Other Encounters Encounter Date Encounter Type Care Provider Facility Start: 10-27-2024 ambulatory [facility] Start: 10-27-2024 End: 10-27-2024 ambulatory [employer] [facility] Start: 09-29-2024 End: 09-29-2024 ambulatory NARESH CLARK [facility] Start: 09-10-2024 Evaluation and management of inpatient SHELIA BRUCE [facility] Start: 09-09-2024 Evaluation and management of inpatient [facility] Start: 09-09-2024 Evaluation and management of inpatient [facility] Start: 09-09-2024 ambulatory [facility] Start: 09-09-2024 End: 09-12-2024 Evaluation and management of inpatient SHAWN GARCIA [facility] Start: 09-07-2024 ambulatory [facility] Start: 07-27-2024 End: 07-27-2024 ambulatory [facility] Start: 07-16-2024 End: 07-16-2024 ambulatory [facility] Work Phone: Start: 07-16-2024 End: 07-16-2024 Patient encounter procedure [facility] Work Phone: Start: 06-23-2024 Non-patient / Non-visit [facility] [employer] Work Phone: Start: 04-21-2024 End: 04-21-2024 ambulatory LACHO [facility] Start: 03-24-2024 ambulatory [facility] Start: 03-24-2024 End: 03-24-2024 ambulatory [facility] Start: 03-12-2024 End: 03-12-2024 ambulatory [facility] Work Phone: Start: 03-12-2024 End: 03-12-2024 Patient encounter procedure [facility] Work Phone: Start: 01-20-2024 End: 01-20-2024 ambulatory [facility] Start: 12-18-2023 Non-patient / Non-visit [facility] Work Phone: Start: 12-17-2023 End: 12-17-2023 [facility] Start: 11-07-2023 End: 11-07-2023 ambulatory Delonte Tejeda Other [employer] Other Start: 11-07-2023 Encounter for genera l adult medical examination without abnormal findings Delonte Tejeda [facility] Start: 11-07-2023 Periodic preventive med est patient 40-64yrs Delonte Tejeda [facility] Start: 10-18-2023 End: 10-18-2023 ambulatory Bonny Raymundo Other [employer] Other Start: 10-18-2023 Telephone encounter Bonny Raymundo [facility] Start: 10-17-2023 Telephone encounter Delonte Tejeda [facility] Start: 10-17-2023 End: 10-17-2023 ambulatory DO Delonte Ball Work Phone: [employer] Other Start: 10-17-2023 End: 10-17-2023 Patient encounter procedure DO Delonte Ball Work Phone: [facility] Work Phone: Start: 10-09-2023 End: 10-09-2023 ambulatory Delonte Tejeda Other [employer] Other Start: 10-09-2023 Telephone encounter Delonte Tejeda [facility] Start: 07-25-2023 End: 07-25-2023 ambulatory Delonte Tejeda Other [employer] Other Start: 07-25-2023 Office outpatient visit 25 minutes Delonte Tejeda [facility] Start: 07-21-2023 End: 07-21-2023 ambulatory Bonny Raymundo Other [employer] Other Start: 07-21-2023 Telephone encounter Bonny Raymundo [facility] Start: 07-11-2023 End: 07-11-2023 ambulatory Delonte Tejeda Other [employer] Other Start: 07-11-2023 Telephone encounter Delonte Tejeda [facility] Start: 06-06-2023 End: 06-06-2023 ambulatory Delonte Tejeda Other [employer] Other Start: 06-06-2023 Telephone encounter [facility] Start: 06-05-2023 Office outpatient visit 15 minutes Bonny Raymundo [facility] Start: 06-05-2023 Telephone encounter Delonte Tejeda [facility] Start: 06-05-2023 End: 06-05-2023 ambulatory DO Delonte Tejeda Work Phone: [employer] Other Start: 06-05-2023 End: 06-05-2023 Patient encounter procedure DO Delonte Tejeda Work Phone: [facility] Work Phone: Start: 04-18-2023 End: 04-18-2023 ambulatory Delonte Tejeda Other [employer] Other Start: 04-18-2023 Telephone encounter Delonte BURDICK [facility] Start: 04-14-2023 End: 04-14-2023 ambulatory Delonte Tejeda Other [employer] Other Start: 04-14-2023 Telephone encounter Delonte Tejeda [facility] Start: 02-21-2023 End: 02-22-[address] DELONTE TEJEDA Facility:[facility] Start: 02-18-2023 End: 02-18-2023 ambulatory Delonte Tejeda Other [employer] Other Start: 02-18-2023 Telephone encounter Delonte Tejeda [facility] Start: 02-14-2023 End: 02-14-2023 ambulatory Bonny Raymundo Other [employer] Other Start: 02-14-2023 Office outpatient visit 25 minutes Bonny Raymundo [facility] Start: 01-29-2023 End: 01-29-2023 ambulatory Delonte Geovani Other [employer] Other Start: 01-29-2023 Telephone encounter Delonte BURDICK [facility] Start: 01-20-2023 End: 01-20-2023 ambulatory Delonte Geovani Other [employer] Other Start: 01-20-2023 Telephone encounter Delonte BURDICK [facility] Start: 01-09-2023 End: 01-09-2023 ambulatory Delonte Tejeda Other [employer] Other Start: 01-09-2023 Office outpatient visit 25 minutes Delonte Tejeda [facility] Start: 12-24-2022 End: 12-24-2022 ambulatory Delonte Tejeda Other [employer] Other Start: 12-24-2022 Telephone encounter Delonte BURDICK [facility] Start: 12-06-2022 End: 12-07-[address] NONE LISTED REQUEST Facility:[facility] Start: 11-29-2022 End: 11-30-[address] NONE LISTED REQUEST Facility: Start: 11-25-2022 End: 11-25-2022 ambulatory Delonte Tejeda Other [employer] Other Start: 11-25-2022 Telephone encounter Delonte BURDICK [facility] Start: 11-01-2022 End: 11-01-2022 ambulatory Delonte Tejeda Other [employer] Other Start: 11-01-2022 Encounter for genera l adult medical examination without abnormal findings Delonte Tejeda [facility] Start: 11-01-2022 Patient encounter procedure Delonte Tejeda [facility] Start: 11-01-2022 Periodic preventive med est patient 40-64yrs Delonte Tejeda [facility] Start: 10-18-2022 End: 10-18-2022 ambulatory Bonny Raymundo Other [employer] Other Start: 10-18-2022 Telephone encounter Bonny Raymundo [facility] Start: 10-07-2022 End: 10-07-2022 Admission to same day surgery center DO Delonte Tejeda Work Phone: [facility] Start: 10-07-2022 End: 10-07-2022 ambulatory DO Delonte Tejeda Work Phone: [facility] Work Phone: Start: 07-30-2022 End: 07-31-[address] NONE LISTED REQUEST Facility:[facility] Start: 07-12-2022 ambulatory Malik MOLINA Facility : [facility] Start: 06-04-2022 End: 06-05-[address] DELONTE TEJEDA Facility:[facility] Start: 05-19-2022 End: 05-19-2022 ambulatory Bonny Raymundo Other [employer] Other Start: 05-19-2022 Office outpatient visit 25 minutes Bonny Raymundo [facility] Start: 05-01-2022 End: 05-02-[address] DELONTE TEJEDA Facility:[facility] Start: 03-15-2022 End: 03-16-[address] DELONTE TEJEDA Facility:[facility] Start: 03-14-2022 End: 03-15-2022 ambulatory NONE LISTED REQUEST Facility:[facility] Start: 02-26-2022 End: 02-27-[address] DELONTE TEJEDA Facility:[facility] Start: 09-07-2021 Adult health examination Bonny Raymundo Other [employer] Other Start: 08-12-2021 End: 08-12-2021 ambulatory Bonny Yoselinrenetta Other [employer] Other Start: 08-12-2021 Office outpatient visit 15 minutes Bonny Ginty [facility] Procedures Date Procedure Procedure Detail Performing Clinician Start: 06-05-2023 Plain X-ray of left hip DO Delonte Tejeda Work Phone: Start: 02-21-[address] RAYA TEJEDA Comment on above: Performed By: #### P SASC #### [facility] [address] [place] [address] Dr. Rena Barone Start: 10-07-2022 Colonoscopy DO Anjali Tejeda Work Phone: Start: 02-26-[address] RAYA TEJEDA Comment on above: Performed By: #### L IPID, T4, TSH, CMP #### [facility] [address] [address] [address] Rena Barone Start: 05-20-2016 General examination of patient Bonny Raymundo Other Start: 01-04-2016 Screening for malign ant neoplasm of colon Bonny Raymundo Other Plan of Treatment Date Care Activity Detail Author Start: 10-07-2022 [facility] Patient Education Colon Polyps [facility] Work Phone: [facility] Immunizations Immunization Date Immunization Notes Care Provider Fa cility 08-19-2022 COVID-19 Pfizer (bivalent) Bonny Raymundo Other [facility] 08-19-2022 COVID-19 Pfizer (Pediatric) Bonny Raymundo Other [facility] 08-19-2022 influenza virus vaccine, split virus (incl. purified surface antigen) Bonny Raymundo Other [employer] Other 08-19-2022 influenza virus vaccine, unspecified formulation [facility] 08-19-2022 influenza, injectabl e, quadrivalent, preservative free Bonny Raymundo Other [facility] 02-09-2022 COVID-19 Pfizer Bonny Raymundo Other [facility] 02-09-2022 COVID-19 Vaccine Pfi zer - Documentation Purposes Only Bonny Raymundo Other [facility] 08-06-2021 COVID-19 Vaccine Pfi zer - Documentation Purposes Only Bonny Raymundo Other [facility] 08-06-2021 influenza virus vaccine, split virus (incl. purified surface antigen) Bonny Raymundo Other [employer] Other 08-06-2021 influenza virus vaccine, unspecified formulation [facility] 01-20-2021 COVID-19 mRNA, Comirnaty (Pfizer) DO Delonte Tejeda Work Phone: [facility] 12-30-2020 COVID-19 Lucian, Eula (Pfizer) DO Delonte Tejeda Work Phone: [facility] 07-26-2020 influenza virus vaccine, split virus (incl. purified surface antigen) Bonny Raymundo Other [employer] Other 07-26-2020 influenza virus vaccine, unspecified formulation [facility] 09-06-2017 tetanus and diphther ia toxoids, adsorbed, preservative free, for adult use (5 Lf of tetanus toxoid and 2 Lf of diphtheria toxoid) Bonny Raymundo Other [facility] Payers Date Payer Category Payer Medicare [id number] 2024 Medicare [id number] 2024 Unknown [id number] 1959 Unknown [id number] 2.16.8 [id number] 1959 Unknown [id number] 2.16.84 [id number] 1959 Unknown [id number] 2.16.84 [id number] 1959 Unknown [id number] 2.16.84 [id number] 1959 Self-pay [id number] 1959 Self-pay [id number] 1960 Unknown [id number] 2. [id number] Unknown [id number] 2.16.84 [id number] Unknown [id number] 2.16.84 [id number] Unknown [id number] 2.16.84 [id number] Unknown [id number] 2.16.84 [id number] Unknown [id number] 2.16.84 [id number] Unknown [id number] 2.16.84 [id number] Unknown [id number] 2.16.8 [id number] Unknown [id number] 2.16.8 [id number] Social History Date Type Detail Facility Sex Assigned At [facility] [employer] Other Start: 10-07-2022 End: 10-07-2022 Tobacco smoking status DCIS Current some day smoker [facility] Start: 1960 Sex Assigned At Male F [facility] Start: 12-18-2023 Tobacco smoking stat us DCIS Ex-smoker (finding) [facility] Goals Date Patient Goal Desired Activity /State Clinical Notes 08-12-2021 to 10-27-2024 Note Date & Type Note Facility 10-27-2024 Note Patient: Salomón Ramon ock Procedure Information Date/Time: 10/27/24 1200 Procedure: Cardioversion - PC APPROVED Location: [facility] / [facility] (Cath) Providers: Felipe Fatima MD Clinical information reviewed: Tobacco Allergies Med Hx Surg Hx Fam Hx Soc Hx Physical Exam Airway Mallampati: II TM distance: >3 FB Neck ROM: full Cardiovascular Dental Pulmonary Abdominal Anesthesia Plan ASA 3 CSE Anesthetic plan and risks discussed with patient. Use of blood products discussed with patient who. Additional Equipment Requests [facility] 09-29-2024 Note Cardiovascular Medic [facility] SUBJECTIVE Chief Complaint Patient presents with Atrial Fibrillation Salomón Rush is a 63 y.o. male here for follow-up after his recent a.fib ablation. HPI PMHx: a.fib, anemia, type 2 diabetes on insulin, gout, hypertension, ELENITA, obesity, hyperlipidemia He had issues with a hematoma post procedure. His Xarelto was held for one day and then resumed when his hemoglobin was stable. He felt like he went back into a.fib last night. Today on EKG he remains in a.fib, HR 86. Left groin swelling is still present but improved. Left groin bruising is still present, extending down past his knee. Some calf swelling noted with tenderness. Denies CP, dyspnea, orthopnea, PND, dizziness/LH, palpitations. Patient Active Problem List Diagnosis Gout Hyperlipidemia Longstanding persistent atrial fibrillation (CMS/HCC) ELENITA (obstructive sleep apnea) Hypertension Type 2 diabetes mellitus (CMS/HCC) Paroxysmal atrial fibrillation (CMS/HCC) History of cardioversion Obesity Type 2 diabetes mellitus with hyperglycemia (CMS/HCC) Chronic venous insufficiency of lower extremity Persistent atrial fibrillation (CMS/HCC) LUIS FELIPE (acute kidney injury) (CMS/HCC) Anemia Past Medical History: Diagnosis Date Abnormal ECG Afib ([facility]/HCC) Arrhythmia Arthritis Atrial fibrillation (CMS/HCC) Diabetes mellitus ([facility]/HCC) type 2 Hyperlipidemia Hypertension Joint pain Severe acute respiratory syndrome 05/2022 Sleep apnea Family History Problem Relation Name Age of Onset Cancer Mother Heart disease Mother Cancer Father Social History Tobacco Use Smoking status: Some Days Types: Cigars Passive exposure: Current Smokeless tobacco: Never Substance Use Topics Alcohol use: Yes Alcohol/week: 20.0 standard drinks of alcohol Types: 20 Cans of beer per week Drug use: Never No Known Allergies ROS Cardiovascular: Positive for leg swelling and palpitations. Hematologic/Lymphatic: Bruises/bleeds easily. Skin: Positive for color change. Musculoskeletal: Positive for arthritis, back pain and joint pain. All other systems reviewed and are negative. OBJECTIVE Visit Vitals BP 128/72 (BP Location: Left wrist, Patient Position: Sitting) Pulse 78 Ht 1.778 m (5' 10 ) Wt (!) 145 kg (320 lb) SpO2 98% BMI 45.92 kg/m??? Smoking Status Some Days BSA 2.68 m??? Medications: Current Outpatient Medications: allopurinol (Zyloprim) 300 mg tablet, Take 150 mg by mouth in the morning. Taking 150 mg daily, Disp: , Rfl: amiodarone (Pacerone) 200 mg tablet, TAKE ONE TABLET DAILY, Disp: 90 tablet, Rfl: 3 amLODIPine (Norvasc) 5 mg tablet, Take 1 tablet by mouth in the morning., Disp: , Rfl: carvedilol (Coreg) 25 mg tablet, Take 1.5 tablets, for 37.5mg , twice daily, Disp: 270 tablet, Rfl: 3 co-enzyme Q-10 50 mg capsule, Take 50 mg by mouth two times daily., Disp: , Rfl: famotidine (Pepcid) 20 mg tablet, Take 1 tablet (20 mg) by mouth two times daily., Disp: 60 tablet, Rfl: 0 furosemide (Lasix) 40 mg tablet, Take 1 tablet by mouth every other day. Pt taking every other day, Disp: , Rfl: insulin glargine (Lantus) 100 unit/mL injection vial, Inject 50 Units under the skin at bedtime., Disp: , Rfl: insulin glargine-yfgn 100 unit/mL (3 mL) insulin pen, INJECT 50 UNITS SUBCUTANEOUSLY ONCE A DAY, Disp: , Rfl: lisinopril 40 mg tablet, Take 40 mg by mouth in the morning., Disp: , Rfl: omeprazole (PriLOSEC) [address] capsule, Take 1 capsule (40 mg) by mouth before breakfast. Do not crush or chew., Disp: 30 capsule, Rfl: 0 potassium chloride CR (Klor-Con M20) 20 mEq ER tablet, Take 20 mEq by mouth in the morning. Do not crush or chew., Disp: , Rfl: pravastatin (Pravachol) 40 mg tablet, Take 40 mg by mouth at bedtime., Disp: , Rfl: rivaroxaban (Xarelto) 20 mg tablet, Take 1 tablet by mouth in the morning. Take with food., Disp: , Rfl: semaglutide (Ozempic) 0.25 mg or 0.5 mg(2 mg/1.5 mL) pen injector, Inject 2 mg under the skin 1 (one) time per week. On Mondays, Disp: , Rfl: Physical Exam Constitutional: Appearance: Normal appearance. He is obese. HENT: Head: Normocephalic and atraumatic. Right Ear: External ear normal. Left Ear: External ear normal. Eyes: Extraocular Movements: Extraocular movements intact. Pupils: Pupils are equal, round, and reactive to light. Neck: Vascular: No carotid bruit. Cardiovascular: Rate and Rhythm: Normal rate. Rhythm irregular. Pulses: Normal pulses. Heart sounds: Normal heart sounds. Comments: Left groin with resolving hematoma, no bruit appreciated Pulmonary: Effort: Pulmonary effort is normal. Breath sounds: Normal breath sounds. Abdominal: General: Bowel sounds are normal. Palpations: Abdomen is soft. Musculoskeletal: General: Normal range of motion. Cervical back: Neck supple. Right lower leg: No edema. Left lower leg: Edema present. Skin: General: Skin is w (more content not included)... [facility] 09-29-2024 Note Patient here for fol low up afib ablation. He developed hematoma s/p ablation and had vascular imaging the next day. He then presented to [facility] ED on 09/17 for worsening hematoma. Denies chest pain and SOB. Says he can tell he went into afib last night and is still in it. Hasn't made an apt with vascular surgery yet and asks what do they want? Review of Systems Cardiovascular: Positive for leg swelling and palpitations. Hematologic/Lymphatic: Bruises/bleeds easily. Skin: Positive for color change. Musculoskeletal: Positive for arthritis, back pain and joint pain. All other systems reviewed and are negative. [facility] 09-12-2024 Note Patient: Salomón Ramon ock Procedure Summary Date: 09/09/24 Room / Location: [facility] / [facility] (Cath) Anesthesia Start: 1235 Anesthesia [...] 17 09/09/24 1739 SpO2 97 % 09/09/24 1739 Vitals shown include unfiled device data. Anesthesia Post Evaluation Comments: PACU staff apparently did not call for a signout. Encounter Notable Events Notable Event Outcome Phase Comment Medication event Intraprocedure 1 mg Ibutilide given as per surgeon request over 10 mins from 14:30-14:40 [facility] 09-12-2024 Note Hospital Medicine Discharge Summary [...] Invasive or Diagnostic Procedures Done During Admission: A. Fib abaltion Consultations During Admission: Cardiology/EP and vascular Dear Dr. Geovani DO Salomón is advised to follow up with you within 1-2 weeks. Items to follow up in ambulatory setting: Follow-up serial CBCs Follow-up with: Cardiology/[facility] Scheduled appointments: Future Appointments Date Time Provider Department Center 09/29/2024 11:00 AM Naresh Clark NP [facility] Your medication [...] mg/1.5 mL) pen injector Commonly known as: Delfino Where to Get Your Medications These medications were sent to [facility] - [place], [place] - [address] [place] [address] [address] [facility] [place] [address], [facility] [address] famotidine 20 mg tablet omeprazole [address] bryson Salomón has No Known Allergies. Disposition: Home [...] was 60 minutes. Signed Shawn Garcia MD [facility] Medicine 09/12/2024 10:47 AM CC: DO Geovani [facility] 09-12-2024 Note Cardiology Inpatient Progress Note [...] 09/12/24 0819 111/54 36.9 ???C (98.4 ???F) Temporal 59 16 100 % -- 09/12/24 0545 [...] Value Ventricular Rate 66 Atrial Rate 102 CA Interval 176 QRS DURATION 102 QT Interval 484 QTC CALCULATION(BAZETT) 507 P Oakley 68 R-Oakley 92 T Wave Oakley 64 Impression Sinus tachycardia with 2nd degree [...] and confirmed block (more content not included)... [facility] 09-12-2024 Note Subjective Patient with no [...] Value Ventricular Rate 66 Atrial Rate 102 CA Interval 176 QRS DURATION 102 QT Interval 484 QTC CALCULATION(BAZETT) 507 P [place] 68 R-Oakley 92 T Wave [place] 64 Impression Sinus tachycardia with 2nd degree A-V block (Mobitz II) Right axis deviation Prolonged QT Abnormal ECG When compared with ECG of 09-SEP-2024 11:27, Sinus rhythm has replaced Atrial fibrillation Confirmed by Felipe Fatima ([id number]) on 09/10/2024 8:48:31 AM Nutrition Screen Assessment Assessment & Plan Paroxysmal atrial fibrillation (CMS/HCC) Persistent atrial fibrillation (CMS/HCC) 63 yo/ M with recent cardiac cath 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 IF I DO NOT RESPOND WITHIN 20 MINUTES OR URGENT MATTERS, PLEASE CALL THROUGH THE EPIC WILLOW SPECIALIST. FROM 7PM-7AM, PLEASE PAGE [phone](COVR). Code Status: Full Code Barriers to Discharge: [...] in sinus rhythm continue amiodarone thank Xarelto remain on hold 2. left groin hematoma, [...] , FREET4 , CORTISOL , FEV1 , RKM0JOH , DLCO , RVSP , HDL , LDL No results found for: [id number] , IRON , TIBC , C3 , [...] Reconstitution of monophas (more content not included)... [facility] 09-11-2024 Note Subjective Patient with no [...] Value Ventricular Rate 66 Atrial Rate 102 CA Interval 176 QRS DURATION 102 QT Interval 484 QTC CALCULATION(BAZETT) 507 P [address] 68 R-Oakley 92 T Wave Oakley 64 Impression Sinus tachycardia with 2nd degree A-V block (Mobitz II) Right axis deviation Prolonged QT Abnormal ECG When compared with ECG of 09-SEP-2024 11:27, Sinus rhythm has replaced Atrial fibrillation Confirmed by Felipe Fatima ([id number]) on 09/10/2024 8:48:31 AM Nutrition Screen Assessment Assessment & Plan Paroxysmal atrial fibrillation (CMS/HCC) Persistent atrial fibrillation (CMS/HCC) 63 yo/ M with recent cardiac 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 I agree with the findings. [facility] 09-11-2024 Note ---- Attestation signed by [...] Felipe Fatima MD, 150 mg at 09/10/24 100 amiodarone (Pacerone) tablet 200 mg, 200 mg, oral, Daily with breakfast, Felipe Fatima MD, 200 mg at 09/10/24 0822 amLODIPine (Norvasc) tablet 5 mg, 5 mg, oral, Daily, Felipe Fatima MD, 5 mg at 09/10/24 100 carvedilol (Coreg) tablet 25 mg, 25 mg, oral, BID with meals, Felipe Fatima MD, 25 mg at 09/10/24 1700 co-enzyme Q-10 capsule 50 mg, 50 mg, oral, BID, Felipe Fatima MD, 50 mg at 09/10/242158 glucose chewable tablet 24 g, 24 g, oral, q15 min PRN OR dextrose 50 % in water (D50W) syringe 25 g, 25 g, intravenous, q15 min PRN, Felipe Fatima MD furosemide (Lasix) tablet 40 mg, 40 mg, oral, Every other day, Felipe Fatima MD, 40 mg at 09/10/241000 HYDROmorphone (Dilaudid) injection 0.5 mg, 0.5 mg, [...] Daily, Felipe Fatima MD, 40 mg at 09/10/241000 pantoprazole (ProtoNix) EC tablet 40 mg, 40 [...] Value Ventricular Rate 66 Atrial Rate 102 CA Interval 176 QRS DURATION 102 QT Interval 484 QTC CALCULATION(BAZETT) 507 P [address] 68 R-Oakley 92 T Wave Oakley 64 Impression Sinus tachycardia with 2nd degree A-V block (Mobitz II) Right axis deviation Prolonged QT Abnormal ECG When compared with ECG of 09-SEP-2024 11:27, Sinus rhythm has repla (more content not included)... [facility] 09-10-2024 Note 09/10/24 1522 Admission Assessment [...] Status Interested Does the patient have a pillowcase cutter assigned to them through their insurance? No [...] patient to discharge home when medically ready. [facility] 09-10-2024 Note Hospital Medicine Daily Progress Note - 09/10/2024 12:21 PM; Room: [address] [place] [address] Admission: 09/09/2024 9:55 AM; Length of stay: 1 days THE HOSPITALIST TEAM PREFERS TO USE [employer] CHAT FOR NON-URGENT COMMUNICATION 7AM-7PM. IF I DO NOT RESPOND WITHIN 20 MINUTES OR URGENT MATTERS, PLEASE CALL THROUGH THE EPIC WILLOW SPECIALIST. FROM 7PM-7AM, PLEASE PAGE [phone](COVR). Code Status: Full Code Barriers to Discharge: [...] patient currently in sinus rhythm continue amiodarone pauly Toribiorelto on hold 2. left groin hematoma, iatrogenic [...] , FREET4 , CORTISOL , FEV1 , ITA1MTZ , DLCO , RVSP , HDL , LDL No results found for: [id number] , IRON , TIBC , C3 , [...] external iliac arter (more content not included)... [facility] 09-09-2024 Note ---- Attestation signed by [...] and findings discussed with the vascular surgery media relations specialist and attending Dr Bruce. Plan discussed with the patient and nursing staff. Plan discussed with the attending physician, Dr. Fatima. [facility] 09-09-2024 Note ATRIAL FIBRILLATION ABLATION PROCEDURE NOTE DATE OF PROCEDURE: 09/09/2024 PERFORMING PHYSICIAN: Dr. Felipe Fatima TELEGRAPHIC TYPEWRITER MECHANIC: NA CONSENT: Patient NAME OF THE PROCEDURE: Pulmonary [...] any shortness of breath, chest pain, fatigue. [id number] at least 2 for hypertension, DM 2, [...] left femoral arterial line was placed by al. LFA: 4F for hemodynamic monitoring. RFV: 8Fx3, [...] converted to SR. (more content not included)... [facility] 09-09-2024 Note Airway Date/Time: 09/09/2024 12:58 PM Urgency: elective Airway not difficult General Information and Staff Patient location during procedure: OR Anesthesiologist: Wil Cook MD Resident/STATION ATTENDANT/CAA: Zheng Reaves MD Performed: resident/STATION ATTENDANT/CAA Indications and Patient Condition Indications for airway [...] 1 Number of other approaches attempted: 0 [facility] 09-09-2024 Note Patient: Salomón Ramon ock Procedure Information Date/Time: 09/09/24 1200 Procedure: Ablation a-fib paroxysmal - pc approved Location: [facility] EP / [facility] VASCULAR LAB (Cath) Providers: Felipe [...] Plan discussed with resident. Additional Equipment Requests [facility] 07-27-2024 Note [facility] Reason for visit: persistent [...] any shortness of breath, chest pain, fatigue. [id number] at least 2 for hypertension, DM 2, [...] no rales, no (more content not included)... [facility] 04-21-2024 Note [id number]= 2 poin ts- HTN and DM Continue xarelto anticoagulation - denied any bleeding tendencies Rate controlled with Coreg [facility] 04-21-2024 Note Currently pt is cassy song well post Cardioversion Currently in A fib and rate controlled - Dr Fatima notified and d/w pt about possible A fib ablation [facility] 04-21-2024 Note [facility] CARDIOLOGY PROGR ESS [...] any shortness of breath, chest pain, fatigue. [id number] at least 2 for hypertension, DM 2, [...] 100 QT Interval 406 QTC CALCULATION(BAZETT) 447 R-Oakley 49 T Wave Oakley 38 Impression Atrial fibrillation Abnormal ECG No previous ECGs available Echo: 09/2023 tte Assessment/Plan: History (more content not included)... [facility] 04-21-2024 Note Patient here for fol [...] All other systems reviewed and are negative. [facility] 03-24-2024 Note DIRECT CARDIOVERSION PROCEDURE NOTE [...] any shortness of breath, chest pain, fatigue. [id number] at least 2 for hypertension, DM 2, [...] consider ablation. Felipe Faitma MD Cardiac Electrophysiology [facility] 03-24-2024 Note Patient: Salomón Ramon ock Procedure Information Date/Time: 03/24/24 0830 Procedure: Cardioversion - TO BE DONE IN March Location: [facility] / [facility] (Cath) Providers: Felipe Fatima MD Clinical information reviewed: Tobacco Allergies Meds Med Hx Surg Hx Fam Hx Soc Hx Physical Exam Airway Mallampati: II TM distance: >3 FB Neck ROM: full Cardiovascular Dental Pulmonary Abdominal Anesthesia Plan ASA 2 CSE Anesthetic plan and risks discussed with patient. Use of blood products discussed with patient who. Additional Equipment Requests [facility] 01-20-2024 Note [facility] Consult Note [...] any shortness of breath, chest pain, fatigue. [id number] at least 2 for hypertension, DM 2, [...] on file Intimate Partner Violence: Unknown (12/11/2023) [facility] Fear of Current or [...] tender Musculoskeletal In (more content not included)... [facility] 12-17-2023 Note [facility] Consult Note [...] stopped on flecainide given having breakthrough episodes. [id number] at least 2 for hypertension, DM 2, [...] on file Intimate Partner Violence: Unknown (12/11/2023) [facility] Fear of Current or [...] Lids and Conju (more content not included)... [facility] 12-17-2023 Note New patient here to establish care. Ref from Dr. Tejeda for hx of afib. He used to see [facility] in [place], and hasn't seen them in a few [...] All other systems reviewed and are negative. [facility] 11-07-2023 Evaluation note Encounter Date Diagnosis [...] are maintaining regular scheduled appts with their oyster unloader. No bleeding complications Oct, Primary hypertension (ICD-10 - I10) This patient is instructed to consume a healthy, low-fat, low-salt diet. They are also encouraged to continue exercise to achieve/maintain a normal BMI. Oct, Obstructive sleep apnea (ICD-10 - G47.33) This patient is aware of the benefits associated with ELENITA: With continued use, the patient reduces the risk for CA, CVA, HTN, cardiac dysrhythmias and sudden cardiac [...] risk for cerebrovascular and cardiovascular disease. Oct, FDC (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 (ICD-10 - Z79.4) Oct, Screening PSA (prostate specific antigen) (ICD-10 - Z12.5) Yearly JACE and PSA [employer] Other 12-30-2023 Evaluation note* Encounter Date Diagnosis Assessment Notes Treatment Notes Treatment Clinical Notes Sep, Longstanding persistent atrial fibrillation (ICD-10 - I48.11) Echo: 09/2023 LVEF low normal, mod diastolic dysfunction, AV sclerosis, moderate MR. RVSP normal. [facility] Other 12-21-2023 Evaluation note* Encounter Date Diagnosis Assessment Notes Treatment Notes Treatment Clinical Notes Sep, Chronic atrial fibrillation (ICD-10 - I48.20) [facility] [employer] Other 10-06-2023 Evaluation note* Encounter Date Diagnosis [...] use, the patient reduces the risk for CA, CVA, HTN, cardiac dysrhythmias and sudden cardiac [...] or develop radicular symptoms, notify office Jul, FDC (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 (ICD-10 - Z79.4) [employer] [employer] Other 10-02-2023 Evaluation note* Encounter Date Diagnosis Assessment Notes Treatment Notes Treatment Clinical Notes Jul, Type 2 diabetes mellitus with hyperglycemia (ICD-10 - E11.65) [facility] Other 09-22-2023 Evaluation note* Encounter Date Diagnosis Assessment Notes Treatment Notes Treatment Clinical Notes Jun, Type 2 diabetes mellitus with hyperglycemia (ICD-10 - E11.65) [facility] Other 08-17-2023 Evaluation note* Encounter Date Diagnosis Assessment Notes Treatment Notes Treatment Clinical Notes May, Left hip pain (ICD-10 - M25.942) XR Images and final report reviewed, XR shows no evidence of acute abnormalities. Discussed degenerative findings with patient. Encouraged use of ice/heat application, OTC Tylenol and/or Naproxen, Lidocaine patches. Patient currently follows with Ortho. Advised that this can be managed by Ortho or PCP. Work note provided x 3 days, no extension allowed. Patient verbalizes understanding and is agreeable with treatment plan [facility] Other 08-17-2023 Evaluation note* Encounter Date Diagnosis Assessment Notes Treatment Notes Treatment Clinical Notes May, Left hip pain (ICD-10 - M25.552) [employer] Other 05-02-2023 Evaluation note* Encounter Date Diagnosis Assessment Notes Treatment Notes Treatment Clinical Notes February, Type 2 diabetes mellitus with hyperglycemia, unspecified whether exterminator helper insulin use (ICD-10 - E11.65) [employer] Other 04-28-2023 Evaluation note* Encounter Date Diagnosis [...] treatment plan. Patient left in stable condition. [employer] Other 04-12-2023 Evaluation note* Encounter Date Diagnosis Assessment Notes Treatment Notes Treatment Clinical Notes Jan, Type 2 diabetes mellitus with hyperglycemia, unspecified whether exterminator helper insulin use (ICD-10 - E11.65) [employer] Other 04-03-2023 Evaluation note* Encounter Date Diagnosis Assessment Notes Treatment Notes Treatment Clinical Notes Jan, Type 2 diabetes mellitus with hyperglycemia (ICD-10 - E11.65) [employer] Other 03-23-2023 Evaluation note* Encounter Date Diagnosis [...] use, the patient reduces the risk for CA, CVA, HTN, cardiac dysrhythmias and sudden cardiac [...] are reviewed at the office visit. Dec, FDC (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 (ICD-10 - Z79.4) [...] Monitor for rash of HZV Stretching exercises [employer] Other 03-07-2023 Evaluation note* Encounter Date Diagnosis Assessment Notes Treatment Notes Treatment Clinical Notes Dec, Type 2 diabetes mellitus with hyperglycemia, without long-term current use of insulin (ICD-10 - E11.65) [employer] Other 02-06-2023 Evaluation note* Encounter Date Diagnosis Assessment Notes Treatment Notes Treatment Clinical Notes Nov, Type 2 diabetes mellitus with hyperglycemia, without long-term current use of insulin (ICD-10 - E11.65) [facility] Other 01-13-2023 Evaluation note* Encounter Date Diagnosis [...] use, the patient reduces the risk for CA, CVA, HTN, cardiac dysrhythmias and sudden cardiac [...] 2 diabetes mellitus with hyperglycemia, unspecified whether halfway insulin use (ICD-10 - E11.65) This patient [...] use, the patient reduces the risk for CA, CVA, HTN, cardiac dysrhythmias and sudden cardiac [...] Oct, Annual physical exam (ICD-10 - Z00.00) [employer] Other [id number] [facility] Encounter Date Diagnosis Assessment [...] treatment plan. Patient left in stable condition [employer] Other 10-24-2021 Evaluation note* Encounter Date Diagnosis [...] Patient care instructions given in writting by [facility] Care At Home document [facility] Other Evaluation noteNo assessment information available [facility] Work Phone: Evaluation noteNo InformationNortFox [facility] Cancer Center [facility] Other Evaluation note* Diagnosis Onset Date Resolution Status Atrial fibrillation acute Chronic venous insufficiency of lower extremity acute Hypercholesterolemia acute Hypertension acute ELENITA (obstructive sleep apnea) acute Type 2 diabetes mellitus with hyperglycemia acute [facility] Work Phone: Evaluation note* Diagnosis Onset Date Resolution Status Anemia acute Atrial fibrillation acute Chronic venous insufficiency of lower extremity acute Hypercholesterolemia acute Hypertension acute Obesity acute ELENITA (obstructive sleep apnea) acute Type 2 diabetes mellitus with hyperglycemia acute [facility] Work Phone: History and physical note Author Deon Greene [facility] October 07, 2022 9:27am Note Date/Time October 07, 2022 9:27am [facility] [address] [place] [address] Gastroenterology H&P Signed Patient: Salomón Rush MR#: [id number] : 1960 Acct:[id number] Age/Sex: 61 / M Adm Date: 2 Loc: Room: Type: [facility] Attending Dr: Deon Greene MD [...] <Electronically signed by Deon Greene MD> 10/07/22926 [facility] Work Phone: History general Narrative - Reported* Type Description Date Medical History hypertension Medical History Diabetes Medical History a. fib Surgical History rotator cuff repair Surgical History cataract Surgical History bilateral knee arthroscopy [employer] Other [employer] general Narrative - Reported* Type Description Date Medical History Tubulovillous adenoma of colon Medical History Anemia Medical History Zoster with other complications Medical History Type 2 diabetes lisa itus with hyperglycemia, unspecified whether halfway insulin use Medical History FDC current use of insulin Medical History Acute [...] DECOMPRESSION 2002 Hospitalization History SEE SURGICAL HX [facility] Other Hospital Discharge instructions Additional Instructions DISCHARGE [...] Follow up with PCP. - Office number [phone].[facility] Work Phone: Reason for referral (narrative)* Reason *FU 11/28 Referral for persistent atrial fibrillation. Diagnosis 1 Chronic atrial fibri llation (I48.20) Referral Organization [facility] anya Referring Provider First Name Delonte Referring Provider Last Name Geovani Referring Provider Specialty [facility] Referred Organization [facility] Referred Provider Felipe Fatima Referred Address [address] [place], [place],[address] Referred Provider Specialty Cardiology Referral Priority Routine [...] faxed Clinical Notes Include recent Echo f: [id number] [employer] Other Summary Purpose Family History No Family [...] BLACK JEEP, HIARRHEA, NA USEA, NASAL CONGESTION [id number] JEEP, COUGH, SORE THROAT, POSITIVE HOME TESTNo InformationWELLNESSNo InformationDifferent MedicationOzempic increasePossible Pulled MusclerefillNo InformationOzempicchest/head coldmed refillHRHRLeft hip painWants on TodayNo InformationOzempicNo Information3 month Follow upPrescription ReminderEKG resultsNo InformationWELLNESSWELLNESS (unrecognized sect ion and content) No Status Records FoundNo Status Records FoundNo Status Records FoundNo Status Records Found INFORMATION SOURCE (unrecogn ized section and content) DATE CREATED AUTHOR [facility]/22/2022 [facility] DATE CREATED AUTHOR AUTHOR'S ORGANIZ ATION 02/21/2023 [facility] DATE CREATED AUTHOR AUTHOR'S ORGANIZ ATION 10/30/2023 [facility] DATE CREATED AUTHOR AUTHOR'S ORGANIZ ATION 11/01/2024 [facility] Care Teams (unrecognized sec tion and content) Team Status: Active Member Role Status Dates Delonte Tejeda DO Primary Care Provider Active Team Status: Active Member Role Status Dates Delonte Tejeda DO Primary Care Provide r, Attending Provider Active Start: February 29th, 2024 Team Status: Inactive Member Role Status [...] BE BASED ON THE PRIMARY CLINICAL RECORDS. [employer] provides no warranty or guarantee of the accuracy or completeness of information in this document.
[2024-11-11 11:39] LABS: Anion Gap 15.5; Calcium 9.1 mg/dL (8.5-10.1); Carbon Dioxide 25.3 mmol/L (21.0-32.0); Chloride 104 mmol/L (98-107); Estimated GFR (African America 59 (>=60 mL/min/1.73m^2); Estimated GFR (Non-African Ame 48 (>=60 mL/min/1.73m^2); Glucose 121 mg/dL (74-106); Potassium 4.8 mmol/L (3.5-5.1); Sodium 140 mmol/L (136-145)
[2024-11-12 04:13] LABS: Vitamin B12 493 pg/mL (232-1245)
[2024-11-12 11:17] LABS: Chol HDL Ratio 3.4; Cholesterol 145 mg/dL (<=200); HDL Cholesterol 43 mg/dL (40-60); LDL Cholesterol Calculated 77.4 mg/dL; Triglycerides 123 mg/dL (<=150); VLDL CHOLESTEROL 24.6 mg/dL
[2024-11-12 11:30] LABS: Prostate Specific Antigen Scrn 0.27 ng/mL (<=4.00)
== END 2024-11-11 10:32 | disposition home or self-care (01) ==
LOC: LAB 10:33
PROVIDERS: PCP Internal Medicine; Visit Provider Internal Medicine
DX: D50.0 Iron deficiency anemia secondary to blood loss (chronic) (principal); N18.9 Chronic kidney disease, unspecified; Z12.5 Encounter for screening for malignant neoplasm of prostate; E78.00 Pure hypercholesterolemia, unspecified
CPT/HCPCS: 36415; 80048; 80061; 82607; G0103

== ENCOUNTER 2025-01-05 07:32 | Outpatient (OUT) | payer MEDICARE, SELFPAY ==
--- OUTSIDE RECORDS SUMMARY | 2025-01-05 07:35 | XMS_ITS | CCD ---
Author Organization [facility] Care Team Providers Care Clipper Machine Name Role Phone YoselinBonny jackson Unavailable Bonny Raymundo Unavailable Malik MOLINA Attending Unavailable BALL PROVIDER, DELONTE Referring Unavaila ble DO Delonte Olivo Primary Care Provider MD Deon Greene Attending Provider [phone] Delonte Olivo Unavailable GEOVANI, DR BEST Consulting Unavailable BALL, DR BEST [...] DR BEST Primary Care Unavailable BALL, DR BETS Consulting Unavailable REQUEST, NONE LISTED Admitting Unavaila ble REQUEST, NONE LISTED Attending Unavaila ble BALL, DR BEST Primary Care Unavailable DO Delonte Olivo Primary Care Provider GABRIELLA Raymundo Attending Provider DO Delonte Olivo Primary Care Provider DO Delonte Olivo Attending Provider Delonte Olivo Admitting Unavailable Geovani, Delonte Primary Care Unavailable Geovani, Delonte Attending Unavailable Zackary, Bonny Gloria Admitting Unavailable Zackary, Bonny Gloria Attending Unavailable Delonte Olivo Primary Care Unavailable NARESH CLARK Attending Unavailable REBECCA, FELIPE Attending Unavailable REGINO, LACHO Attending Unavailable AGUILAR, ADONIS Attending Unavailable REBECCA, FELIPE Referring Unavailable REBECCA, FELIPE Referring Unavailable REBECCA, FELIPE Admitting Unavailable REBECCA, FELIPE Attending Unavailable CUPID, RISK CONTROL DIRECTOR Admitting Unavailable CUPID, RISK CONTROL DIRECTOR Attending Unavailable REBECCA, FELIPE Attending Unavailable ROSIONARESH Attending Unavailable BARAZIKOLBY Attending Unavailable REBECCA, FELIPE Referring Unavailable REBECCA, FELIPE Referring Unavailable NAZZAL, SHELIA Referring Unavailable REBECCA, FELIPE Referring Unavailable REBECCA, FELIPE Attending Unavailable REBECCA, FELIPE Referring Unavailable REBECCA, FELIPE Admitting Unavailable REBECCA, FELIPE Referring Unavailable MELA, SHAWN Attending Unavailable REBECCA, FELIPE Referring Unavailable REBECCA, FELIPE Referring Unavailable KASSY, JOSEPHINE Silva Attending Unavailable TIMMIAmrita, KINA Stephen Attending Unavailable GEOVANI, DELONTE E Referring Unavailable Medications Current Medications Medication Drug [...] tablet (20 sources) Xanthine Oxidase Inhibitor Start: 07-16-2024 Allopurinol 300 mg tablet Active 150 MG PO Daily 45 July 16, 2024 3:37pm Start: 06-29-2024 End: 07-16-2024 take 1 tablet by mouth once daily Allopurinol 300 mg tablet Discontinued 0 .ROUTE .COMPLEX June 29, 2024 7:34am July 16, 2024 3:38pm TAKE 1 TABLET BY MOUTH DAILY Start: 06-29-2024 take 1 tablet by eriberto th once daily Allopurinol Active 0 .ROUTE .COMPLEX June 29, 2024 8:34am TAKE 1 TABLET BY MOUTH DAILY Start: 06-27-2021 End: 06-29-2024 take 1 tablet by mouth once daily Allopurinol 300 mg Tablet Discontinued 300 MG PO Daily June 26, 2021 11:00pm June 29, 2024 7:35am amiodarone hydrochloride 200 mg oral tablet (5 sources) Antiarrhythmic Start: 03-12-2024 take 1 tablet by mouth once daily Amiodarone 200 mg tablet Active 200 MG PO Daily March 11, 2024 11:00pm amLODIPine 5 mg oral tablet (20 sources) Dihydropyridine Calcium Channel Ezequiel Start: 02-23-2024 take 1 tablet by mouth once daily Amlodipine 5 mg tablet Active 0 .ROUTE .COMPLEX February 23, 2024 12:45pm TAKE 1 TABLET BY MOUTH DAILY Start: 06-27-2021 End: 02-23-2024 take 1 tablet by mouth once daily Amlodipine 5 mg Tablet Discontinued 5 MG PO Daily June 26, 2021 11:00pm February 23, 2024 12:45pm carvedilol 25 mg oral tablet (20 sources) alpha-Adrenergic Ezequiel, beta-Adrenergic Ezequiel Start: 03-12-2024 Carvedilol 25 mg tablet Active 37.5 MG PO Twice daily March 12, 2024 8:44am Start: 03-12-2024 take 37.5 mg by mout h twice daily Carvedilol Active 37.5 MG PO Twice daily March 12, 2024 9:44am Start: 03-12-2024 End: 03-12-2024 take 1 tablet by mouth twice daily Carvedilol 25 mg tablet Discontinued 25 MG PO Twice daily March 12, 2024 8:01am March 12, 2024 8:45am Start: 01-27-2024 End: 03-12-2024 Carvedilol 25 mg tablet Disc ontinued 37.5 MG PO Every 12 hours 270 90 January 27, 2024 4:57pm March 12, 2024 8:04am Start: 01-27-2024 End: 03-12-2024 take 37.5 mg by mouth every twelve hours Carvedilol Discontinued 37.5 MG PO Every 12 hours 270 90 January 27, 2024 5:57pm March 12, 2024 9:04am Start: 01-06-2024 End: 01-27-2024 take 1 tablet by mouth twice daily Carvedilol 25 mg tablet Discontinued 0 .ROUTE .COMPLEX 180 January 06, 2024 3:03pm January 27, 2024 4:58pm TAKE ONE TABLET BY MOUTH TWICE A DAY Start: 01-06-2024 End: 01-27-2024 take 1 tablet by mouth twice daily Carvedilol Discontinued 0 .ROUTE .COMPLEX 180 January 06, 2024 4:03pm January 27, 2024 5:58pm TAKE ONE TABLET BY MOUTH TWICE A DAY Start: 12-18-2023 End: 01-06-2024 Carvedilol 25 mg tablet Disc ontinued 37.5 MG PO Twice daily 90 December 18, 2023 6:57pm January 06, 2024 3:03pm Start: 12-18-2023 End: 01-06-2024 take 37.5 mg by mouth twice daily Carvedilol Discontinued 37.5 MG PO Twice daily 90 December 18, 2023 7:57pm January 06, 2024 4:03pm Start: 06-27-2021 End: 12-18-2023 take 2 tablets by mouth twice daily Carvedilol 12.5 mg Tablet Discontinued 25 MG PO Twice daily June 26, 2021 11:00pm December 18, 2023 6:58pm Start: 06-27-2021 End: 12-18-2023 take 25 mg by mouth twice daily Carvedilol Discontinue d 25 MG PO Twice daily June 27, 2021 12:00am December 18, 2023 7:58pm take 1 tablet by eriberto twice daily Carvedilol 25 MG TAKE ONE [...] a day for 15 days Dec, Active famotidine 20 mg oral tablet (3 sources) Histamine-2 Receptor Antagonist Start: 4 take 1 tablet by mouth once daily Famotidine 20 mg tablet Active 20 MG PO Daily September 14, 2024 12:00am furosemide 40 mg oral tablet (20 sources) Loop Diuretic Start: 4 Furosemide 40 mg tablet Active 40 MG PO Every 48 hours July 16, 2024 3:37pm Start: 02-23-2024 End: 07-16-2024 take 1 tablet by mouth once daily Furosemide 40 mg tablet Discontinued 0 .ROUTE .COMPLEX February 23, 2024 12:45pm July 16, 2024 3:38pm TAKE 1 TABLET BY MOUTH DAILY Start: 06-27-2021 End: 02-23-2024 take 1 tablet by mouth once daily Furosemide 40 mg Tablet Discontinued 40 MG PO Daily June 26, 2021 11:00pm February 23, 2024 12:45pm 3 ml insulin glargine 100 un t/ml [...] UNIT SUBCUT Daily April 28, 2024 12:00am Insulin Glargine-Yfgn 100 unit/mL (3 mL) insulin pen (3 sources) Start: 04-28-2024 Insulin Glargine-Yfgn 100 unit/mL (3 mL) insulin pen Active 50 UNIT SUBCUT Daily April 27, 2024 11:00pm lisinopril 40 mg oral tablet (20 sources) Angiotensin Converting Enzyme Inhibitor Start: 11-02-2024 take 1 tablet by mouth once daily Lisinopril 40 mg tablet Active 40 MG PO Daily November 02, 2024 5:07pm Start: 06-29-2024 End: 11-02-2024 take 1 tablet by mouth once daily Lisinopril 40 mg tablet Discontinued 0 .ROUTE .COMPLEX June 29, 2024 7:34am November 02, 2024 5:07pm TAKE 1 TABLET BY MOUTH DAILY Start: 06-29-2024 take 1 tablet by eriberto th once daily Lisinopril Active 0 .ROUTE .COMPLEX June 29, 2024 8:34am TAKE 1 TABLET BY MOUTH DAILY Start: 06-27-2021 End: 06-29-2024 take 1 tablet by mouth once daily Lisinopril 40 mg Tablet Discontinued 40 MG PO Daily June 26, 2021 11:00pm June 29, 2024 7:35am mecobalamin 1 mg chewable tablet (3 sources) Start: 11-12-2024 take 1 tablet by mouth once daily Mecobalamin (Vitamin B12) 1,000 mcg tablet,chewable Active 1000 MCG PO Daily November 12, 2024 12:00am omeprazole 40 mg delayed release oral capsule (3 sources) Proton Pump Inhibitor Start: 09-14-2024 take 1 capsule by mouth once daily Omeprazole 40 mg capsule,delayed release(DR/EC) Active 40 MG PO Daily September 14, 2024 12:00am ozempic (1 mg/dose) 4 mg/3ml solution pen-injector (5 sources) Start: 01-29-2023 inject 1 mg by subcutaneous injection every week Ozempic (1 MG/DOSE) 4 MG/3ML 1 MG Subcutaneous weekly Jan, Active potassium chloride 20 meq extended release oral tablet (20 sources) Start: 06-29-2024 take 1 tablet by mouth once daily Potassium Chloride 20 mEq tablet extended release Active 0 .ROUTE .COMPLEX June 29, 2024 7:34am TAKE ONE TABLET BY MOUTH DAILY Start: 06-29-2024 take 1 tablet by eriberto th once daily Potassium Chloride Active 0 .ROUTE .COMPLEX June 29, 2024 8:34am TAKE ONE TABLET BY MOUTH DAILY Start: 06-27-2021 End: 06-29-2024 take 1 tablet by mouth once daily Potassium Chloride 20 mEq Tablet Extended Release Discontinued 20 MEQ PO Daily June 26, 2021 11:00pm June 29, 2024 7:35am Potassium Chlori de 20 MEQ 1 packet Orally Once a day for 30 day(s) Active pravastatin sodium 40 mg oral tablet (20 sources) HMG-CoA Reductase Inhibitor Start: 02-23-2024 take 1 tablet by mouth once daily in the evening Pravastatin 40 mg tablet Active 0 .ROUTE .COMPLEX February 23, 2024 12:45pm TAKE ONE TABLET BY MOUTH EVERY EVENING Start: 06-27-2021 End: 02-23-2024 take 1 tablet by mouth once daily Pravastatin 40 mg Tablet Discontinued 40 MG PO Daily June 26, 2021 11:00pm February 23, 2024 12:45pm rivaroxaban 20 mg oral tablet (20 sources) Factor Xa Inhibitor Start: 06-27-2021 End: 11-15-2024 take 1 tablet by mouth once daily Rivaroxaban (Xarelto) 20 mg tablet Active 20 MG PO Daily November 15, 2024 9:09am Xarelto Active 0.25 mg, 0.5 mg dose 1.5 ml semaglutide 1.34 mg/ml pen injector (20 sources) Start: 11-25-2022 Ozempic (0.25 or 0.5 MG/DOSE) 2 MG/1.5ML 0.25mg Subcutaneous weekly for 28 days Nov, Active Ozempic (0.25 or 0.5 MG/DOSE) 2 MG/1.5ML 0.5mg Subcutaneous weekly for 28 days Active Semaglutide 2 mg/dose (8 mg/3 mL) pen injector (3 sources) Start: 09-23-2024 inject 2 mg by subcutaneous injection every week Semaglutide 2 mg/dose (8 mg/3 mL) pen injector Active 2 MG SUBCUT every week September 23, 2024 2:02pm tiZANidine 2 mg oral tablet (20 sources) Central alpha-2 Adrenergic Agonist Start: 01-09-2023 take 1 tablet by mouth once at bedtime as needed for pain tiZANidine HCl 2 MG 1 tablet as needed Orally q HS as needed for pain and stiffness for 14 days Jul, Active ubiquinol 100 mg oral capsule (5 sources) Start: 03-12-2024 take 1 capsule by mouth once daily Coq10 (Ubiquinol) (Qunol Ilir Coq10) 100 mg capsule Active 100 MG PO Daily March 11, 2024 11:00pm Vitamin B-12 1000 MCG (4 sources) take [...] (Original) flecainide acetate 100 mg oral tablet (15 sources) Antiarrhythmic Start: 06-27-2021 End: 10-07-2022 take 1 tablet by mouth every twelve hours Flecainide 100 mg Tablet Discontinued 100 MG PO Q12H June 26, 2021 11:00pm October 07, 2022 8:41am Insulin Glargine (Lantus U-100 Insulin) 100 unit/mL Solution (8 sources) Start: 06-27-2021 End: 04-28-2024 inject 50 [IU] by subcutaneous injection twice daily Insulin Glargine (Lantus U-100 Insulin) 100 unit/mL Solution Discontinued 50 UNIT SUBCUT Twice daily June 26, 2021 11:00pm April 28, 2024 7:41pm Start: 06-27-2021 End: 04-28-2024 inject 50 [IU] [...] 11:00pm metoprolol tartrate 50 mg oral tablet (13 sources) beta-Adrenergic Ezequiel Start: 06-27-2021 End: 10-07-2022 take 1 tablet by mouth twice daily as needed Metoprolol Tartrate 50 mg tablet Discontinued 50 MG PO Twice daily as needed for palpatation June 26, 2021 11:00pm October 07, 2022 8:41am Semaglutide (10 sources) Start: 02-06-2024 End: 09-23-2024 inject 1 mg by subcutaneous injection every week Semaglutide (Ozempic) 1 mg/dose (4 mg/3 mL) pen injector Discontinued 1 MG SUBCUT every week February 06, 2024 4:39pm September 23, 2024 2:02pm Start: 02-06-2024 inject 1 mg by subcu taneous injection every week Semaglutide (Ozempic) 1 mg/dose (4 mg/3 mL) pen injector Active 1 MG SUBCUT every week 9 February 06, 2024 5:39pm Start: 02-04-2024 End: 02-06-2024 inject 1 mg by subcutaneous injection every week Semaglutide (Ozempic) 1 mg/dose (4 mg/3 mL) pen injector Discontinued 1 MG SUBCUT every week February 03, 2024 11:00pm February 06, 2024 4:39pm Start: 02-04-2024 End: 02-06-2024 inject 1 mg by subcutaneous injection every week Semaglutide (Ozempic) 1 mg/dose (4 mg/3 mL) pen injector Discontinued 1 MG SUBCUT every week February 04, 2024 12:00am February 06, 2024 5:39pm SITagliptin 100 mg oral tablet (20 sources) Dipeptidyl Peptidase 4 Inhibitor Start: 06-27-2021 End: 02-04-2024 take 1 tablet by mouth once daily Sitagliptin Phosphate (Januvia) 100 mg Tablet Discontinued 100 MG PO Daily June 26, 2021 11:00pm February 04, 2024 7:14pm traMADol hydrochloride 50 mg oral tablet (3 sources) Opioid Agonist Start: 09-20-2024 End: 11-12-2024 take 1 tablet by mouth every six hours as needed for pain Tramadol 50 mg tablet Discontinued 50 MG PO Every 6 hours as needed for pain 16 05September 20, 2024 12:00am November 12, 2024 8:57am Problems Active Problems Problem Classification Problem Date Documented Date Episodic/Chronic Acute and unspecified renal failure (1 source) Acute renal failure syndrome; Translations: [Acute kidney failure, unspecified] 07-16-2024 Episodic Acute posthemorrhagic anemia (7 sources) Acute posthemorrhagic anemia; Translations: [Acute posthemorrhagic anemia] 09-14-2024 Episodic Allergic reactions (20 sources) Idiopathic urticaria; Translations: [Idiopathic urticaria] Onset: 01-04-2016 Episodic Cardiac dysrhythmias (20 sources) Paroxysmal atrial fibrillation; Translations: [Paroxysmal atrial fibrillation] Onset: 10-11-2024 03-10-2024 Chronic Comment on above: Cardioversion 10/27/24 Echo: LVEF 55%, ITALIA, normal RV size/function - 07/2024,Echo: LVEF 45%, ITALIA, normal RV size/function - 08/2024 Cardioversion 10/27/24 ,Echo: LVEF 55%, ITALIA, normal RV size/function - 07/2024,Echo: LVEF 45%, ITALIA, normal RV size/function - 08/2024 Chronic kidney disease (5 sources) Chronic kidney disease; Translations: [Chronic kidney disease, unspecified] 07-29-2024 Chronic Complications of surgical procedures or medical care (9 sources) Cardiovascular system complication of procedure; Translations: [Postprocedural hemorrhage of a circulatory system organ or structure following a cardiac catheterization] 09-14-2024 Episodic Deficiency and other anemia (20 sources) Anemia; [...] horn of medial meniscus] Onset: 08-08-2016 Chronic Nutritional deficiencies (2 sources) Cobalamin deficiency; Translations: [Deficiency of other specified B group vitamins] 11-26-2024 Episodic Osteoarthritis (20 sources) Bilateral arthritis of knees; Translations: [Bilateral primary osteoarthritis of knee] Chronic Other aftercare (20 sources) Long-term current use of insulin; Translations: [shelter (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] Episodic Other and unspecified benign neoplasm (20 sources) History of polyp of colon; Translations: [Personal history of colonic polyps] Episodic Other and unspecified benign neoplasm (20 sources) Benign neoplasm of colon; Translations: [Benign neoplasm of colon, unspecified] Episodic Other and unspecified benign neoplasm (3 sources) Benign neoplasm of colon, unspecified; Translations: [Tubulovillous adenoma of colon] Episodic Other circulatory disease (2 sources) Other specified symptoms and signs involving the circulatory and respiratory systems; Translations: [Other specified symptoms and signs involving the circulatory and respiratory systems] Onset: 11-10-2024 Episodic Other diseases of veins and lymphatics (20 sources) Peripheral venous insufficiency; Translations: [Venous insufficiency (chronic) (peripheral)] Episodic Other diseases of veins and lymphatics (8 sources) Venous insufficiency (chronic) (peripheral); Translations: [Venous (peripheral) insufficiency, unspecified] Episodic Other diseases of veins and lymphatics (5 sources) Venous insufficiency of leg; Translations: [Venous insufficiency (chronic) (peripheral)] 03-10-2024 Episodic Other ear and sense organ disorders (1 source) Unspecified hearing loss, bilateral; Translations: [Unspecified hearing loss] 11-26-2024 Chronic Other ear and sense organ disorders (1 source) Impacted cerumen, bilateral; Translations: [Impacted cerumen] 11-26-2024 Episodic Other injuries and conditions due to [...] Chronic Other nutritional; endocrine; and metabolic disorders (9 sources) Obesity; Translations: [Obesity, unspecified] 03-12-2024 Chronic Other nutritional; endocrine; and metabolic disorders (2 sources) Obesity, unspecified; Translations: [Obesity, unspecified] 07-16-2024 Chronic Other screening for suspected conditions (not mental disorders or infectious disease) (8 sources) Encounter for screening for malignant neoplasm of prostate; Translations: [Patient encounter status] Episodic Comment on above: PSA: 0.39 - 11/2023 PSA: 0.39 - 11/2023, 0.27 - 10/2024 Other upper respiratory infections (1 source) Acute upper respiratory infection, unspecified Episodic Peripheral and visceral atherosclerosis (3 sources) Superficial femoral artery occlusion; Translations: [Unspecified atherosclerosis of [place] arteries of extremities, unspecified extremity] Onset: 10-20-2023 09-12-2024 Chronic Comment on above: left Residual codes; unclassified (20 sources) Obstructive sleep apnea syndrome; Translations: [Obstructive sleep apnea (adult) (pediatric)] Onset: 06-04-2022 Chronic Residual codes; unclassified (14 sources) Obstructive sleep apnea (adult) (pediatric); Translations: [Obstructive sleep apnea (adult)(pediatric)] Onset: 06-05-2022 Chronic Residual codes; unclassified (2 sources) Localized edema; Translations: [Localized edema] Onset: 11-10-2024 Episodic Spondylosis; intervertebral disc disorders; other back problems (20 sources) Lumbar spondylosis; Translations: [Spondylosis without myelopathy or radiculopathy, lumbar region] Onset: 11-29-2016 Chronic Sprains and strains (11 sources) Neck sprain; Translations: [Strain of muscle, fascia and tendon at neck level, initial encounter] Onset: 08-11-2017 Episodic Superficial injury; contusion (3 sources) Contusion of abdominal wall, initial encounter; Translations: [Hematoma of left inguinal region] 09-12-2024 Episodic Unclassified (5 sources) Longstanding persistent atrial fibrillation; Translations: [Longstanding persistent atrial fibrillation] Onset: 12-17-2023 Unclassified (1 source) Chronic atrial fibrillation, unspecified; Translations: [Chronic atrial fibrillation, unspecified] Onset: 10-17-2023 Unclassified (1 source) Pain in left hip; Translations: [Pain in left hip] Onset: 06-05-2023 Unclassified (2 sources) Other persistent atrial fibrillation; Translations: [Other persistent atrial fibrillation] Onset: 09-09-2024 Varicose veins of lower extremity (2 sources) Asymptomatic varicose veins of bilateral lower extremities; Translations: [Asymptomatic varicose veins of bilateral lower extremities] Onset: 11-10-2024 Episodic Viral infection (20 sources) Herpes zoster with [...] Onset: 01-14-2018 Episodic Other aftercare (6 sources) shelter (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; Translations: [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 Cholesterol in LDL Calc [Mas s/Vol]on 11-11-2024 Cholesterol in LDL [Mass/Vol] Cholesterol in LDL [Mass/volume] in Serum or Plasma by calculation [facility] Comment on above: <100 mg/dl [id number] 0-129 mg/dl NEAR OR ABOVE [id number] mg/dl BORDERLINE [id number] mg/dl HIGH>190 mg/dl VERY HIGH Cholesterol in VLDL Calc [Ma ss/Vol]on 11-11-2024 Cholesterol in VLDL [Mass/Vol] Cholesterol in VLDL [Mass/volume] in Serum or Plasma by calculation [facility] Estimated glomerular filtrat ion rate (GFR) non- Americanon 11-11-2024 GFR/1.73 sq M.predicted among non-blacks MDRD (S/P/Bld) [Vol rate/Area] Estimated glomerular filtration rate (GFR) non- Low >=60 mL/min/1.73m 2 [facility] Laboratory - Chemistry and C hemistry - challengeon 11-11-2024 Calcium [Mass/Vol] 9.1 mg/dL 8.5-10.1 [facility] Chloride [Moles/Vol] 104 mmol/L 98-107 [facility] Cholesterol [Mass/Vol] 145 mg/dL <=200 [facility] Cholesterol in HDL [Mass/Vol] 43 mg/dL 40-60 [facility] Comment on above: > or =60 mg/dl - LOW CARDIOVASCULAR RISK<40 mg/dl - HIGH CARDIOVASCULAR RISK CO2 [Moles/Vol] 25.3 mmol/L 21.0-32.0 [facility] Cobalamin (Vitamin B12) [Mass/Vol] 493 pg/mL 232-1245 [facility] Comment on above: Performed at: - [address] [id number] Director: Carlitos Low PhD, Phone: [phone] Creatinine [Mass/Vol] 1.47 mg/dL High 0.70-1.30 [facility] GFR/1.73 sq M.predicted MDRD (S/P/Bld) [Vol rate/Area] 59 mL/min/{1.73_m2} Low >=60 mL/min/1.73m 2 [facility] Glucose [Mass/Vol] 121 mg/dL High 74-106 [facility] Potassium [Moles/Vol] 4.8 mmol/L 3.5-5.1 [facility] Sodium [Moles/Vol] 140 mmol/L 136-145 [facility] Triglyceride [Mass/Vol] 123 mg/dL <=150 [facility] Urea nitrogen [Mass/Vol] 28.0 mg/dL High 7.0-18.0 [facility] Urea nitrogen/Creatinine [Mass ratio] 19.0 mg/mg [facility] No Panel Informationon 11-11 Prostate Specific Antigen Screen 0.27 ng/mL <=4.00 [facility] Serum or plasma anion gap de terminationon 11-11-2024 Anion gap [Moles/Vol] Serum or plasma anion gap determination [facility] Serum or plasma total choles terol/high density lipoprotein (HDL) cholesterol mass deysi 11-11-2024 Cholesterol.total/C holesterol in HDL [Mass ratio] Serum or plasma total cholesterol/high density lipoprotein (HDL) cholesterol mass rat [facility] Comment on above: 3.3 - 4.4 LOW RISK4. 4 - 7.1 AVERAGE RISK7.1 - 11.0 MODERATE RISK>11.0 HIGH RISK Follow-Upon 11-10-2024 Follow-Up [id number] Rosalind Rush 1960 M Date Provider Department Center 11/10/2024 ADONIS SHETH [facility] Family History Problem Relation Age of Onset Cancer Mother Heart disease Mother Cancer Father Family Status - Relation Status Age at Mother Father Level of Service:55064 NE OFFICE/OUTPATIENT ESTABLISHED MOD MDM 30 MIN Reason for Visit and Comments: New Patient [632] - Blood clot/blockage-Ref Dr Fatima -he wants pt seen after ablation Last seen as inpatient 09/12/24 w resident Testings 09/10/[address] [facility] HPon 10-27-2024 [facility] Electrophysiology Consult Note Reason for visit: persistent AF 10/27/24 Pt here for DCCV 07/27/24 Pt is here for a three month follow up. Pt denies chest pain, sob, dizziness. Patient underwent cardioversion on 03/24/2024 and was noted to have recurrence of atrial fibrillation when seen on 04/21/2024 by Mirella Rivera. He was still taking amiodarone at that [...] any shortness of breath, chest pain, fatigue. [id number] at least 2 for hypertension, DM 2, [...] Year: No Utilities: Not At Risk (09/09/2024) [facility] Utilities Threatened with loss of utilities: No [...] 1 tablet (2 (more content not included)... Normal [facility] NURSNOTEon 10-27-2024 NURSNOTE RN educated pt on d/ c [...] of unit with all of belongings. Normal [facility] Basophils Auto (Bld) [#/Vol] on 10-25-2024 Basophils (Bld) [#/Vol] Automated basophil count 0.0-0.1 [facility] Basophils/100 WBC Auto (Bld) on 10-25-2024 Basophils/100 WBC (Bld) Automated basophil % 0.2-2.0 [facility] Eosinophils/100 WBC Auto (Bl d)on 10-25-2024 Eosinophils/100 WBC (Bld) Automated eosinophil % 0.9-7.0 [facility] Erythrocyte distribution wid th Auto (RBC) [Ratio]on 10-25-2024 Erythrocyte distribution width (RBC) [Ratio] Erythrocyte distribution width [Ratio] by Automated count 11.0-15.0 [facility] Estimated glomerular filtrat ion rate (GFR) non- Americanon 10-25-2024 GFR/1.73 sq M.predicted among non-blacks MDRD (S/P/Bld) [Vol rate/Area] Estimated glomerular filtration rate (GFR) non- Low >=60 mL/min/1.73m 2 [facility] Hematocrit Auto (Bld) [Volum e fraction]on 10-25-2024 Hematocrit (Bld) [Volume fraction] Hematocrit [Volume Fraction] of Blood by Automated count Low 42.0-54.0 [facility] Hemoglobin [Mass/volume] in Bloodon 10-25-2024 Hemoglobin (Bld) [Mass/Vol] Hemoglobin [Mass/volume] in Blood Low 14.0-18.0 [facility] Laboratory - Chemistry and C hemistry - challengeon 10-25-2024 Calcium [Mass/Vol] 9.5 mg/dL 8.5-10.1 [facility] Chloride [Moles/Vol] 103 mmol/L 98-107 [facility] CO2 [Moles/Vol] 27.2 mmol/L 21.0-32.0 [facility] Creatinine [Mass/Vol] 1.44 mg/dL High 0.70-1.30 [facility] GFR/1.73 sq M.predicted MDRD (S/P/Bld) [Vol rate/Area] 60 mL/min/{1.73_m2} >=60 mL/min/1.73m 2 [facility] Glucose [Mass/Vol] 132 mg/dL High 74-106 [facility] Magnesium [Mass/Vol] 1.9 mg/dL 1.8-2.4 [facility] Potassium [Moles/Vol] 4.6 mmol/L 3.5-5.1 [facility] Sodium [Moles/Vol] 139 mmol/L 136-145 [facility] Urea nitrogen [Mass/Vol] 24.0 mg/dL High 7.0-18.0 [facility] Urea nitrogen/Creatinine [Mass ratio] 16.7 mg/mg [facility] Laboratory - Hematology and Cell countson 10-25-2024 Immature granulocytes/100 WBC (Bld) 0.3 % 0.0-0.5 [facility] Leukocytes [#/volume] correc rosa for nucleated erythrocytes in Blood by Automated counon 10-25-2024 WBC corrected for nucl RBC Auto (Bld) [#/Vol] Leukocytes [#/volume] corrected for nucleated erythrocytes in Blood by Automated coun 4.0-11.0 [facility] Lymphocytes Auto (Bld) [#/Vo l]on 10-25-2024 Lymphocytes (Bld) [#/Vol] Lymphocytes [#/volume] in Blood by Automated count Low 1.2-3.8 [facility] Lymphocytes/100 WBC Auto (Bl d)on 10-25-2024 Lymphocytes/100 WBC (Bld) Lymphocytes/100 leukocytes in Blood by Automated count Low 20.5-60.0 [facility] MCH Auto (RBC) [Entitic mass ]on 10-25-2024 MCH (RBC) [Entitic mass] MCH [Entitic mass] by Automated count 25.9-34.0 [facility] MCHC Auto (RBC) [Mass/Vol]on 10-25-2024 MCHC (RBC) [Mass/Vol] MCHC [Mass/volume] by Automated count 29.9-35.2 [facility] MCV Auto (RBC) [Entitic vol] on 10-25-2024 MCV (RBC) [Entitic vol] MCV [Entitic volume] by Automated count High 80.0-94.0 [facility] Monocytes Auto (Bld) [#/Vol] on 10-25-2024 Monocytes (Bld) [#/Vol] Automated blood monocyte count 0.3-0.8 [facility] Monocytes/100 WBC Auto (Bld) on 10-25-2024 Monocytes/100 WBC (Bld) Automated monocyte % 1.7-12.0 [facility] Neutrophils Auto (Bld) [#/Vo l]on 10-25-2024 Neutrophils (Bld) [#/Vol] Neutrophils [#/volume] in Blood by Automated count 1.4-6.5 [facility] Neutrophils/100 WBC Auto (Bl d)on 10-25-2024 Neutrophils/100 WBC (Bld) Automated neutrophil % 43.0-75.0 [facility] No Panel Informationon 10-25 Eosinophils # (Auto) 0.1 10 3/uL 0.0-0.7 [facility] Immature Granulocyte # (Auto) 0.02 10 3/uL 0.00-0.03 [facility] Platelet mean volume Auto (B ld) [Entitic vol]on 10-25-2024 Platelet mean volume (Bld) [Entitic vol] Platelet mean volume [Entitic volume] in Blood by Automated count 9.5-13.5 [facility] Platelets Auto (Bld) [#/Vol] on 10-25-2024 Platelets (Bld) [#/Vol] Platelets [#/volume] in Blood by Automated count 150-450 [facility] RBC Auto (Bld) [#/Vol]on RBC (Bld) [#/Vol] Erythrocytes [#/volume] in Blood by Automated count Low 4.70-6.10 [facility] Serum or plasma anion gap de terminationon 10-25-2024 Anion gap [Moles/Vol] Serum or plasma anion gap determination [facility] Orders Onlyon 10-19-2024 Orders Only [id number] Rosalind Rush 1960 M Date Provider Department Center 10/19/2024 CONNIE BYRNE [facility] [place] [facility] Family History Problem Relation Age of Onset Cancer Mother Heart disease Mother Cancer Father Family Status - Relation Status Age at Mother Father Normal [facility] Follow-Upon 09-29-2024 Follow-Up [id number] Rosalind Rush 1960 M Date Provider Department Center 09/29/2024 [facility] Family History Problem Relation Age of Onset Cancer Mother Heart disease Mother Cancer Father Family Status - Relation Status Age at Mother Father Level of Service:45931 NE OFFICE/OUTPATIENT ESTABLISHED MOD MDM 30 MIN Reason for Visit and Comments: Atrial Fibrillation [80] Normal [facility] Basophils Auto (Bld) [#/Vol] on 09-27-2024 Basophils (Bld) [#/Vol] Automated basophil count 0.0-0.1 [facility] Basophils/100 WBC Auto (Bld) on 09-27-2024 Basophils/100 WBC (Bld) Automated basophil % 0.2-2.0 [facility] Eosinophils/100 WBC Auto (Bl d)on 09-27-2024 Eosinophils/100 WBC (Bld) Automated eosinophil % 0.9-7.0 [facility] Erythrocyte distribution wid th Auto (RBC) [Ratio]on 09-27-2024 Erythrocyte distribution width (RBC) [Ratio] Erythrocyte distribution width [Ratio] by Automated count 11.0-15.0 [facility] Hematocrit Auto (Bld) [Volum e fraction]on 09-27-2024 Hematocrit (Bld) [Volume fraction] Hematocrit [Volume Fraction] of Blood by Automated count Low 42.0-54.0 [facility] Hemoglobin [Mass/volume] in Bloodon 09-27-2024 Hemoglobin (Bld) [Mass/Vol] Hemoglobin [Mass/volume] in Blood Low 14.0-18.0 [facility] Iron binding capacity [Mass/ volume] in Serum or Plasmaon 09-27-2024 Iron binding capacity [Mass/Vol] Iron binding capacity [Mass/volume] in Serum or Plasma 250.0-450.0 [facility] Iron saturation [Mass Fracti on] in Serum or Plasmaon 09-27-2024 Iron saturation [Mass fraction] Iron saturation [Mass Fraction] in Serum or Plasma [facility] Laboratory - Chemistry and C hemistry - challengeon 09-27-2024 Cobalamin (Vitamin B12) [Mass/Vol] 290 pg/mL 232-1245 [facility] Comment on above: Performed at: SAR[facility] [id number] [id number] Director: Carlitos Low PhD, Phone: [phone] Ferritin [Mass/Vol] 465.0 ng/mL High 26.0-388.0 [facility] Iron [Mass/Vol] 68.0 ug/dL 65.0-175.0 [facility] Laboratory - Hematology and Cell countson 09-27-2024 Immature granulocytes/100 WBC (Bld) 0.2 % 0.0-0.5 [facility] Leukocytes [#/volume] correc rosa for nucleated erythrocytes in Blood by Automated counon 09-27-2024 WBC corrected for nucl RBC Auto (Bld) [#/Vol] Leukocytes [#/volume] corrected for nucleated erythrocytes in Blood by Automated coun 4.0-11.0 [facility] Lymphocytes Auto (Bld) [#/Vo l]on 09-27-2024 Lymphocytes (Bld) [#/Vol] Lymphocytes [#/volume] in Blood by Automated count Low 1.2-3.8 [facility] Lymphocytes/100 WBC Auto (Bl d)on 09-27-2024 Lymphocytes/100 WBC (Bld) Lymphocytes/100 leukocytes in Blood by Automated count Low 20.5-60.0 [facility] MCH Auto (RBC) [Entitic mass ]on 09-27-2024 MCH (RBC) [Entitic mass] MCH [Entitic mass] by Automated count 25.9-34.0 [facility] MCHC Auto (RBC) [Mass/Vol]on 09-27-2024 MCHC (RBC) [Mass/Vol] MCHC [Mass/volume] by Automated count 29.9-35.2 [facility] MCV Auto (RBC) [Entitic vol] on 09-27-2024 MCV (RBC) [Entitic vol] MCV [Entitic volume] by Automated count High 80.0-94.0 [facility] Monocytes Auto (Bld) [#/Vol] on 09-27-2024 Monocytes (Bld) [#/Vol] Automated blood monocyte count 0.3-0.8 [facility] Monocytes/100 WBC Auto (Bld) on 09-27-2024 Monocytes/100 WBC (Bld) Automated monocyte % 1.7-12.0 [facility] Neutrophils Auto (Bld) [#/Vo l]on 09-27-2024 Neutrophils (Bld) [#/Vol] Neutrophils [#/volume] in Blood by Automated count 1.4-6.5 [facility] Neutrophils/100 WBC Auto (Bl d)on 09-27-2024 Neutrophils/100 WBC (Bld) Automated neutrophil % 43.0-75.0 [facility] No Panel Informationon 09-27 Eosinophils # (Auto) 0.1 10 3/uL 0.0-0.7 [facility] Folate 13.50 ng/mL 8.60-58.90 [facility] Immature Granulocyte # (Auto) 0.01 10 3/uL 0.00-0.03 [facility] Platelet mean volume Auto (B ld) [Entitic vol]on 09-27-2024 Platelet mean volume (Bld) [Entitic vol] Platelet mean volume [Entitic volume] in Blood by Automated count 9.5-13.5 [facility] Platelets Auto (Bld) [#/Vol] on 09-27-2024 Platelets (Bld) [#/Vol] Platelets [#/volume] in Blood by Automated count 150-450 [facility] RBC Auto (Bld) [#/Vol]on RBC (Bld) [#/Vol] Erythrocytes [#/volume] in Blood by Automated count Low 4.70-6.10 [facility] Basophils Auto (Bld) [#/Vol] on 09-17-2024 Basophils (Bld) [#/Vol] Automated basophil count 0.0-0.1 [facility] Basophils/100 WBC Auto (Bld) on 09-17-2024 Basophils/100 WBC (Bld) Automated basophil % 0.2-2.0 [facility] Eosinophils/100 WBC Auto (Bl d)on 09-17-2024 Eosinophils/100 WBC (Bld) Automated eosinophil % 0.9-7.0 [facility] Erythrocyte distribution wid th Auto (RBC) [Ratio]on 09-17-2024 Erythrocyte distribution width (RBC) [Ratio] Erythrocyte distribution width [Ratio] by Automated count 11.0-15.0 [facility] Estimated glomerular filtrat ion rate (GFR) non- Americanon 09-17-2024 GFR/1.73 sq M.predicted among non-blacks MDRD (S/P/Bld) [Vol rate/Area] Estimated glomerular filtration rate (GFR) non- Low >=60 mL/min/1.73m 2 [facility] Hematocrit Auto (Bld) [Volum e fraction]on 09-17-2024 Hematocrit (Bld) [Volume fraction] Hematocrit [Volume Fraction] of Blood by Automated count Low 42.0-54.0 [facility] Hemoglobin [Mass/volume] in Bloodon 09-17-2024 Hemoglobin (Bld) [Mass/Vol] Hemoglobin [Mass/volume] in Blood Low 14.0-18.0 [facility] Laboratory - Chemistry and C hemistry - challengeon 09-17-2024 Calcium [Mass/Vol] 9.0 mg/dL 8.5-10.1 [facility] Chloride [Moles/Vol] 103 mmol/L 98-107 [facility] CO2 [Moles/Vol] 24.5 mmol/L 21.0-32.0 [facility] Creatinine [Mass/Vol] 1.71 mg/dL High 0.70-1.30 [facility] GFR/1.73 sq M.predicted MDRD (S/P/Bld) [Vol rate/Area] 49 mL/min/{1.73_m2} Low >=60 mL/min/1.73m 2 [facility] Glucose [Mass/Vol] 105 mg/dL 74-106 [facility] Magnesium [Mass/Vol] 1.9 mg/dL 1.8-2.4 [facility] Potassium [Moles/Vol] 4.6 mmol/L 3.5-5.1 [facility] Sodium [Moles/Vol] 139 mmol/L 136-145 [facility] Urea nitrogen [Mass/Vol] 28.0 mg/dL High 7.0-18.0 [facility] Urea nitrogen/Creatinine [Mass ratio] 16.4 mg/mg [facility] Laboratory - Hematology and Cell countson 09-17-2024 Immature granulocytes/100 WBC (Bld) 0.4 % 0.0-0.5 [facility] Leukocytes [#/volume] correc rosa for nucleated erythrocytes in Blood by Automated counon 09-17-2024 WBC corrected for nucl RBC Auto (Bld) [#/Vol] Leukocytes [#/volume] corrected for nucleated erythrocytes in Blood by Automated coun 4.0-11.0 [facility] Lymphocytes Auto (Bld) [#/Vo l]on 09-17-2024 Lymphocytes (Bld) [#/Vol] Lymphocytes [#/volume] in Blood by Automated count Low 1.2-3.8 [facility] Lymphocytes/100 WBC Auto (Bl d)on 09-17-2024 Lymphocytes/100 WBC (Bld) Lymphocytes/100 leukocytes in Blood by Automated count Low 20.5-60.0 [facility] MCH Auto (RBC) [Entitic mass ]on 09-17-2024 MCH (RBC) [Entitic mass] MCH [Entitic mass] by Automated count High 25.9-34.0 [facility] MCHC Auto (RBC) [Mass/Vol]on 09-17-2024 MCHC (RBC) [Mass/Vol] MCHC [Mass/volume] by Automated count 29.9-35.2 [facility] MCV Auto (RBC) [Entitic vol] on 09-17-2024 MCV (RBC) [Entitic vol] MCV [Entitic volume] by Automated count High 80.0-94.0 [facility] Comment on above: MACROCYTOSIS 2+ Monocytes Auto (Bld) [#/Vol] on 09-17-2024 Monocytes (Bld) [#/Vol] Automated blood monocyte count High 0.3-0.8 [facility] Monocytes/100 WBC Auto (Bld) on 09-17-2024 Monocytes/100 WBC (Bld) Automated monocyte % 1.7-12.0 [facility] Neutrophils Auto (Bld) [#/Vo l]on 09-17-2024 Neutrophils (Bld) [#/Vol] Neutrophils [#/volume] in Blood by Automated count High 1.4-6.5 [facility] Neutrophils/100 WBC Auto (Bl d)on 09-17-2024 Neutrophils/100 WBC (Bld) Automated neutrophil % 43.0-75.0 [facility] No Panel Informationon 09-17 Eosinophils # (Auto) 0.1 10 3/uL 0.0-0.7 [facility] Immature Granulocyte # (Auto) 0.04 10 3/uL High 0.00-0.03 [facility] Platelet mean volume Auto (B ld) [Entitic vol]on 09-17-2024 Platelet mean volume (Bld) [Entitic vol] Platelet mean volume [Entitic volume] in Blood by Automated count 9.5-13.5 [facility] Platelets Auto (Bld) [#/Vol] on 09-17-2024 Platelets (Bld) [#/Vol] Platelets [#/volume] in Blood by Automated count 150-450 [facility] RBC Auto (Bld) [#/Vol]on RBC (Bld) [#/Vol] Erythrocytes [#/volume] in Blood by Automated count Low 4.70-6.10 [facility] Serum or plasma anion gap de terminationon 09-17-2024 Anion gap [Moles/Vol] Serum or plasma anion gap determination [facility] Telephoneon 09-15-2024 Telephone [id number] Rosalind Rush 1960 M Date Provider Department Center 09/15/2024 Aniket-GALLO [facility] [place] Heart[facility]AS Family History Problem Relation Age of Onset Cancer Mother Heart disease Mother Cancer Father Family Status - Relation Status Age at Mother Father Reason for Visit and Comments: week f/u post ablation [Other] Normal [facility] 36on 09-13-2024 36 Post Discharge Call Good morning, I am Anahi Donovan, RN a lead nurse from [facility]. I am calling you to follow [...] discuss? Patient Name Salomón Rush Date 09/13/24 [facility] Telephoneon 09-13-2024 Telephone [id number] Rosalind Rush 1960 M Date Provider Department Center 09/13/2024 Whitley-ANAHI DONOVAN [facility] Family History Problem Relation Age of Onset Cancer Mother Heart disease Mother Cancer Father Family Status - Relation Status Age at Mother Father Reason for Visit and Comments: Hospital Follow-up [832] Normal [facility] 30on 09-12-2024 30 The patient is [...] appropriate resources Outcome: Progressing Normal [facility] HEMOGLOBIN AND HEMATOCRIT, B Vickie 09-12-2024 Hematocrit (Bld) [Volume fraction] 25.1 % Low 39.0-55.[address] [facility] Comment on above: Performed By: #### L [id number] #### [facility] ([facility]) [address] [place] [address] Hemoglobin (Bld) [Mass/Vol] 8.6 g/dL Low 13.0-17.[address] [facility] Comment on above: Performed By: #### L [id number] #### [facility] ([facility]) [address] [place] [address] Hematocrit (Bld) [Volume fraction] 25.3 % Low 39.0-55.[address] [facility] Comment on above: Performed By: #### L [id number] #### [facility] ([facility]) [address] [place] [address] Hemoglobin (Bld) [Mass/Vol] 8.4 g/dL Low 13.0-17.[address] [facility] Comment on above: Performed By: #### L [id number] #### [facility] ([facility]) [address] [place] [address] POCT GLUCOSE METER UNSOLICIT ED RESULTSon 09-12-2024 Glucose [Mass/Vol] 157 mg/dL High 70-105 [facility] Comment on above: Order Comment: Waive d Testing in the ED is performed under the ED CLIA certificate #[id number]. Result Comment: [email or web address] Performed By: #### L [id number] #### [facility] ([facility] [address] [place] [address] 30on 09-11-2024 30 The patient is Moderately [...] or improved Outcome: Progressing Normal [facility] 30 The patient is Moderately Stable [...] appropriate resources Outcome: Progressing Normal [facility] HEMOGLOBIN AND HEMATOCRIT, B LOODon 09-11-2024 Hematocrit (Bld) [Volume fraction] 25.7 % Low 39.0-55.[address] [facility] Comment on above: Performed By: #### L [id number] ####[facility] ([facility])[address] [place] [address] Hemoglobin (Bld) [Mass/Vol] 8.6 g/dL Low 13.0-17.[address] [facility] Comment on above: Performed By: #### L [id number] ####[facility] ([facility])[address] [place] [address] Hematocrit (Bld) [Volume fraction] 26.8 % Low 39.0-55.[address] [facility] Comment on above: Performed By: #### L [id number] #### [facility] ([facility]) [address] [place] [address] Hemoglobin (Bld) [Mass/Vol] 9.0 g/dL Low 13.0-17.[address] [facility] Comment on above: Performed By: #### L [id number] #### [facility] ([facility]) [address] [place] [address] Hematocrit (Bld) [Volume fraction] 26.6 % Low 39.0-55.[address] [facility] Comment on above: Performed By: #### L [id number] #### [facility] ([facility]) [address] [place] [address] Hemoglobin (Bld) [Mass/Vol] 8.9 g/dL Low 13.0-17.[address] [facility] Comment on above: Performed By: #### L [id number] #### [facility] ([facility]) [address] [place] [address] POCT GLUCOSE METER UNSOLICIT ED RESULTSon 09-11-2024 Glucose [Mass/Vol] 183 mg/dL High 70-105 [facility] Comment on above: Order Comment: Waive d Testing in the ED is performed under the ED CLIA certificate #[id number]. Result Comment: [email or web address] Performed By: #### L [id number] #### [facility] ([facility]) [address] [place] [address] Glucose [Mass/Vol] 168 mg/dL High 70-105 [facility] Comment on above: Order Comment: Waive d Testing in the ED is performed under the ED CLIA certificate #[id number]. Result Comment: [email or web address] Performed By: #### L [id number] #### [facility] ([facility]) [address] [facility] [address] Glucose [Mass/Vol] 264 mg/dL High 70-105 [facility] Comment on above: Order Comment: Waive d Testing in the ED is performed under the ED CLIA certificate #[id number]. Result Comment: [email or web address] Performed By: #### L [id number] #### [facility] ([facility]) [address] [place] [address] Glucose [Mass/Vol] 180 mg/dL High 70-105 [facility] Comment on above: Order Comment: Waive d Testing in the ED is performed under the ED CLIA certificate #[id number]. Result Comment: [email or web address] Performed By: #### L [id number] #### [facility] ([facility]) [address] [place] [address] 30on 09-10-2024 30 The patient is Moderately [...] and behaviors that affect risk of falls Amberg fall precautions as indicated by assessment Educate [...] overall improvement and discharge Normal [facility] 30 The patient is Moderately Stable [...] appropriate resources Outcome: Progressing Normal [facility] CONSULTon 09-10-2024 CONSULT [facility] Vascular/Endovascular Surgery Division Reason For Consult Left [...] (more content not included)... Normal [facility] CONSULT -- Attestation signed by Jay [...] vascular surgery input. Jay Soliman MD, MPH, [facility], [facility], [facility] Interventional Cardiology Pager Email: [email or web address] ADDENDUM: Discussed with EP colleague Dr. Fatima; [...] (more content not included)... Normal [facility] HEMOGLOBIN AND HEMATOCRIT, B Vickie 09-10-2024 Hematocrit (Bld) [Volume fraction] 26.4 % Low 39.0-55.[address] [facility] Comment on above: Performed By: #### L [id number] #### [facility] ([facility]) [address] [place] [address] Hemoglobin (Bld) [Mass/Vol] 9.0 g/dL Low 13.0-17.[address] [facility] Comment on above: Performed By: #### L [id number] #### [facility] ([facility]) [address] [place] [address] Hematocrit (Bld) [Volume fraction] 28.3 % Low 39.0-55.[address] [facility] Comment on above: Performed By: #### L [id number] #### [facility] ([facility]) [address] [place] [address] Hemoglobin (Bld) [Mass/Vol] 9.8 g/dL Low 13.0-17.[address] [facility] Comment on above: Performed By: #### L [id number] #### [facility] ([facility]) [address] [place] [address] Hematocrit (Bld) [Volume fraction] 30.2 % Low 39.0-55.[address] [facility] Comment on above: Performed By: #### L [id number] ####[facility] ([facility])[address] [place] [address] Hemoglobin (Bld) [Mass/Vol] 9.9 g/dL Low 13.0-17.[address] [facility] Comment on above: Performed By: #### L [id number] ####[facility] ([employer])[address] [place] [address] POCT GLUCOSE METER UNSOLICIT ED RESULTSon 09-10-2024 Glucose [Mass/Vol] 201 mg/dL High 70-105 [facility] Comment on above: Order Comment: Waive d Testing in the ED is performed under the ED CLIA certificate #[id number]. Result Comment: [email or web address] Performed By: #### L [id number] ####[facility] ([facility])[address] [place] [address] Glucose [Mass/Vol] 168 mg/dL High 70-105 [facility] Comment on above: Order Comment: Waive d Testing in the ED is performed under the ED CLIA certificate #[id number]. Result Comment: [email or web address] Performed By: #### L [id number] ####[facility] ([facility])[address] [place] [address] 30on 09-09-2024 30 The patient is Moderately [...] injury: Assess patient frequently for physical needs Amberg fall precautions as indicated by assessment Instruct [...] prevent exacerbation or deterioration Normal [facility] BASIC METABOLIC PANELon 11-2 Anion gap [Moles/Vol] 16 mmol/L Normal 7-[address] [facility] Comment on above: Performed By: #### L [id number] #### [facility] ([facility]) [address] [place] [address] Calcium [Mass/Vol] 8.8 mg/dL Normal 8.6-10.3 [facility] Comment on above: Performed By: #### L [id number] #### [facility] ([facility]) [address] [place] [address] Chloride [Moles/Vol] 104 mmol/L Normal 98-[address] [facility] Comment on above: Performed By: #### L [id number] #### [facility] ([facility]) [address] [facility] [address] CO2 [Moles/Vol] 20 mmol/L Low 21-31 [facility] Comment on above: Performed By: #### L [id number] #### [facility] ([facility]) [address] [place] [address] Creatinine [Mass/Vol] 1.21 mg/dL Normal 0.70-1.[address] [facility] Comment on above: Performed By: #### L [id number] #### [facility] ([facility]) [address] [place] [address] GLOMERULAR FILTRATION RATE ML/MIN/1.73 SQ M.PREDICTED 66.9 mL/min/1.73m*2 Normal >60.0 [facility] Comment on above: Result Comment: [facility]???s estimated glomerular filtration rate (eGFR) will [...] group of individuals. Performed By: #### L [id number] #### [facility] ([facility]) [address] [place] [address] Glucose [Mass/Vol] 179 mg/dL High 70-100 [facility] Comment on above: Performed By: #### L [id number] #### [facility] ([facility]) [address] [place] [address] Potassium [Moles/Vol] 4.7 mmol/L Normal 3.5-5.[address] [facility] Comment on above: Performed By: #### L [id number] #### [facility] ([facility]) [address] [place] [address] Sodium [Moles/Vol] 135 mmol/L Low 136-145 [facility] Comment on above: Performed By: #### L [id number] #### [facility] ([facility]) [address] [place] [address] Urea nitrogen [Mass/Vol] 24 mg/dL Normal 7-[address] [facility] Comment on above: Performed By: #### L [id number] #### [facility] (BEAKER) [address] [place] [address] UREA NITROGEN/CREATININE (MASS RATIO) IN SER/PLAS 19.[address] [facility] Comment on above: Performed By: #### L [id number] #### [facility] ([facility]) [address] [place] [address] CTA ABDOMEN PELVIS W IV CONT RASTon [...] urinary bladder. Approved by:Marcio Horton09/10/2024 1:25 AM. IChris,have reviewed the image(s) and agree with the findings in this report. Electronically signed: Chris De Leon. Normal [facility] CTA LOWER EXTREMITY LEFT W I [...] signed: Chris De Leon. Normal [facility] HEMOGLOBIN AND HEMATOCRIT, B LOBethany 09-09-2024 Hematocrit (Bld) [Volume fraction] 34.7 % Low 39.0-55.[address] [facility] Comment on above: Performed By: #### L [id number] #### [facility] ([facility]) [address] [place] [address] Hemoglobin (Bld) [Mass/Vol] 11.7 g/dL Low 13.0-17.[address] [facility] Comment on above: Performed By: #### L [id number] #### [facility] ([facility]) [address] [place] [address] HPon 09-09-2024 [facility] Electrophysiology Consult Note Reason for [...] any shortness of breath, chest pain, fatigue. [id number] at least 2 for hypertension, DM 2, [...] Year: No Utilities: Not At Risk (09/09/2024) [facility] Utilities Threatened with loss of utilities: No [...] (more content not included)... Normal [facility] NURSNOTEon 09-09-2024 NURSNOTE Around 2109 video games storywriter paged cardiology to notify him that pt groin was getting increasingly larger, starting to swell and bruise more. Site was becoming firm. insulation professional said to take a picture of pt groin and attach it to pt chart, also to hold pressure for 15 minutes and that he would notify Dr. Lugo. Provider called video games storywriter back to notify him that he was going to get vascular surgery involved. Around 2139 Vascular sx. PA came to bedside to assess pt. He said he would call Dr. Mcdonald and figure out a plan. Around 2199, PA told video games storywriter that Dr. Mcdonald said to continue holding pressure until hematoma goes down. Around 2229, insurance adjustor came to bedside to assess pt groin site. Fellow ordered STAT H&H, STAT CTA of abdomen and left lower extremity, and 0.5 mg of dilaudid q3 for patient's pain. Admissions Counselor and other RN's continuing to alternate holding pressure on groin site. Normal [facility] NURSNOTE Pt came from EP lab from getting Afib Ablation. Left groin site was bruised. Admissions Counselor called somebody from EP lab to come take a look at it when patient first got to unit. It was soft and of no concern. Now it is bruised and hardened at the site. Admissions Counselor called someone from EP lab to take a look. 2 EP lab nurses came to hold pressure. 10 minutes later another staff member came up to assist. The area has softened and feather stitcher nurser has been instructed to check back in 10 minutes to make sure it has not hardened. [facility] Orders Onlyon 09-09-2024 Orders Only [id number] Rosalind Rush C 1960 M Date Provider Department Center 09/09/20241986-GALLO [facility] [place] [facility] Family History Problem Relation Age of Onset Cancer Mother Heart disease Mother Cancer Father Family Status - Relation Status Age at Mother Father Normal [facility] POCT GLUCOSE METER UNSOLICIT ED RESULTSon 09-09-2024 Glucose [Mass/Vol] 162 mg/dL High 70-105 [facility] Comment on above: Order Comment: Waive d Testing in the ED is performed under the ED CLIA certificate #[id number]. Result Comment: paul som3 Performed By: #### L [id number] ####[facility] ([facility])[address] [place] [address] Glucose [Mass/Vol] 146 mg/dL High 70-105 [facility] Comment on above: Order Comment: Waive d Testing in the ED is performed under the ED CLIA certificate #[id number]. Result Comment: dspe ars Performed By: #### L [id number] #### [facility] ([facility]) [address] [place] [address] Glucose [Mass/Vol] 126 mg/dL High 70-105 [facility] Comment on above: Order Comment: Waive d Testing in the ED is performed under the ED CLIA certificate #[id number]. Result Comment: acle ment Performed By: #### L [id number] #### [facility] ([facility]) [address] [place] [address] PROTIME-INRon 09-09-2024 INR IN PPP BY COAGULATION ASSAY 1.16 High 0.90-1.[address] [facility] Comment on above: Result Comment: ACCC [...] RANGE. CHEST 1995;108:231S-246S. Performed By: #### L [id number] #### [facility] ([facility]ER) [address] [place] [address] PROTHROMBIN TIME (PT) IN PPP BY COAGULATION ASSAY 14.8 Seconds Normal 12.3-14.[address] [facility] Comment on above: Performed By: #### L [id number] #### [facility] ([facility]) [address] [place] [address] Prep for Procedureon 024 Prep for Procedure [id number] Rosalind Rush 1960 M Date Provider Department Center 09/09/20241986-GALLO [facility] [place] [facility] Family History Problem Relation Age of Onset Cancer Mother Heart disease Mother Cancer Father Family Status - Relation Status Age at Mother Father Normal [facility] [id number] 09-01-2024 [id number] SURGERY DATE: 4 Medications to take Morning [...] THE FOLLOWING ARE NOT AVAILABLE: An adult coach tour driver over the age of 18, that [...] lenses. Do not wear perfume, make-up, nail bruneian, or lotions on the day of your [...] need to make any changes, please call [phone]. Notify your surgeon if you develop any illness such as a cold, cough, fever, sore throat or vomiting between now and your surgery. Thank you for entrusting us with your care. [facility] Surgical Services Team [facility] [phone] Notified Gallo [phone] Fatima's clinic that Patient don't have coach tour driver to go home after surgery, but he will have a coach tour driver next day. He will be admitted per Gallo if no coach tour driver at same day. [facility] Prep for Procedureon 024 Prep for Procedure [id number] Rosalind Rush 1960 Date Provider Department Center 07/28/2024 GALLO DANIEL [facility] [place] [facility] Family History Problem Relation Age of Onset Cancer Mother Heart disease Mother Cancer Father Family Status - Relation Status Age at Mother Father [facility] Office Visiton 07-27-2024 Follow-up visit [id number] Rosalind Rush 1960 Date Provider Department Center 07/27/2024 IdaliaREBECCA FELIPE DUD[facility] Family History Problem Relation Age of Onset Cancer Mother Heart disease Mother Cancer Father Family Status - Relation Status Age at Mother Father Level of Service:16477 NE OFFICE/OUTPATIENT ESTABLISHED LOW MDM 20 MIN [facility] Glucose mean value [Mass/vol ume] in Blood Estimated from glycated hemoglobinon 06-23-2024 Average glucose Estimated from glycated hemoglobin (Bld) [Mass/Vol] 114 mg/dL [facility] Laboratory - Hematology and Cell countson 06-23-2024 HbA1c (Bld) [Mass fraction] 5.6 % 4.5-6.2 [facility] Comment on above: ADA RECOMMENDED LIMI T 4.0 - 6.0ADA THERAPEUTIC TARGET < 7.0ACTION SUGGESTED> 7.0 Office Visiton 04-21-2024 Follow-up visit [id number] Rosalind Rush Woodrow 1960 Provider Department Center 04/21/2024 LACHO JORDAN DUDLEY Pooja Pérez Family History Problem Relation Age of Onset Cancer Mother Heart disease Mother Cancer Father Family Status - Relation Status Age at Mother Father Level of Service:00781 NE POSTOP FOLLOW UP VISIT RELATED TO ORIGINAL PX [facility] HPon 03-24-2024 [facility] Electrophysiology Consult Note Reason for [...] any shortness of breath, chest pain, fatigue. [id number] at least 2 for hypertension, DM 2, [...] on file Intimate Partner Violence: Unknown (12/11/2023) [place] Safety & Environment Fear of Current or [...] (more content not included)... Normal [facility] NURSNOTEon 03-24-2024 MARINE RN educated pt on d/ c instructions. RN encouraged pt to voice any questions or concerns. Pt verbalizes no questions or concerns at this time. Pt was wheeled off of unit with all of belongings. Normal [facility] Orders Onlyon 03-16-2024 Orders Only [id number] Rosalind Rush rajiv C 1960 Date Provider Department Center 03/16/2024 CONNIE BYRNE [facility] Family History Problem Relation Age of Onset Cancer Mother Heart disease Mother Cancer Father Family Status - Relation Status Age at Mother Father Normal [facility] Office Visiton 01-20-2024 Follow-up visit [id number] Rosalind Rush rajiv C 1960 Date Provider Department Center 01/20/2024 [facility] Family History Problem Relation Age of Onset Cancer Mother Heart disease Mother Cancer Father Family Status - Relation Status Age at Mother Father Level of Service:19212 NE OFFICE/OUTPATIENT NEW MODERATE MDM 45 MINUTES Reason for Visit and Comments: Follow-up [[id number]] Normal [facility] Orders Onlyon 01-20-2024 Orders Only [id number] Rosalind Rush rajiv C 1960 Date Provider Department Center 01/20/2024 FATEMEH [facility] Family History Problem Relation Age of Onset Cancer Mother Heart disease Mother Cancer Father Family Status - Relation Status Age at Mother Father Normal [facility] 2912-17-2023 29 Addended by: BETSY PABLO on: 12/17/2023 10:20 AM Modules accepted: Orders Normal [facility] Office Visiton 12-17-2023 Follow-up visit [id number] Rosalind Rush rajiv C 1960 Date Provider Department Center 12/17/2023 KOLBY [facility]S [facility] Family History Problem Relation Age of Onset Cancer Mother Heart disease Mother Cancer Father Family Status - Relation Status Age at Mother Father Level of Service:70408 NE OFFICE/OUTPATIENT NEW MODERATE MDM 45 MINUTES Normal [facility] ECH echo transthoracicon ECH echo transthoracic [facility] [place] [address] [place] [address] Echocardiogram Signed Patient: Salomón Rush MR#: [id number] 90 : 1960 Acct:[id number] Age/Sex: 62 / M ADM Date: 10/17/23 Loc: Room: Type: [facility] CLI Attending Dr: Delonte Olivo DO Ordering Provider: Delonte Olivo DO Date of Service: 10/17/23/ ECH/ECH echo [...] By: Ortiz Singletary MD 10/17/23 1304 Normal [facility] XR hip LT min 2V(w/wo pelvis )*on 06-05-2023 XR hip LT min 2V(w/wo pelvis)* [facility] [place] [address] XRay Report Signed Patient: Salomón Rush MR#: [id number] 90 : 1960 Acct:[id number] Age/Sex: 62 / M ADM Date: 06/05/23 Loc: [facility] Room: Type: [facility] Attending Dr: Bonny Raymundo APRN Copies to: [...] Calvin Thibodeaux M.D.06/05/2023 12:25 PM Dictation Location: [place] [address] Transcribed By: [facility] 06/05/23 1225 Dictated By: Calvin Thibodeaux II, MD 06/05/23 1223 Signed By: 06/05/23 1225 Normal [facility] XR hip LT min 2V(w/wo pelvis)* [facility] [employer] [facility] [employer] Other XR hip LT min 2V(w/wo pelvis)* [facility] [place] [employer] Other XR hip LT min 2V(w/wo pelvis)* [address] [place] [address] [employer] Other XR hip LT min 2V(w/wo pelvis)* [place] [address] [employer] Other XR hip LT min 2V(w/wo pelvis)* XRay Report [employer] Other XR hip LT min 2V(w/wo pelvis)* Signed [employer] Other XR hip LT min 2V(w/wo pelvis)* Patient: Salomón Rush MR#: [id number] [employer] Other XR hip LT min 2V(w/wo pelvis)* 90 [employer] Other XR hip LT min 2V(w/wo pelvis)* : 1960 Acct:[id number] [employer] Other XR hip LT min 2V(w/wo pelvis)* Age/Sex: 62 / M ADM Date: 06/05/23 [employer] Other XR hip LT min 2V(w/wo pelvis)* Loc: XDUCLY [facility]: [facility] [employer] Other XR hip LT min 2V(w/wo pelvis)* Attending Dr: Bonny Raymundo [facility] [employer] Other XR hip LT min 2V(w/wo pelvis)* Copies to: Bonny Raymundo [employer] Other XR hip LT min 2V(w/wo pelvis)* Ordering Provider: Bonny Raymundo APRN [employer] Other XR hip LT min 2V(w/wo pelvis)* Date of Service: 06/05/23 [employer] Other XR hip LT min 2V(w/wo pelvis)* XR/XR hip LT min 2V(w/wo pelvis)*: Left hip pain [employer] Other XR hip LT min 2V(w/wo pelvis)* XR hip LT min 2V(w/wo pelvis)* 06/05/2023 11:57 AM [employer] Other XR hip LT min 2V(w/wo pelvis)* SIGNS AND SYMPTOMS: Left hip pain [employer] Other XR hip LT min 2V(w/wo pelvis)* PROTOCOL: Frontal radiograph of the pelvis with frontal and frog-leg views of the left hip [employer] Other XR hip LT min 2V(w/wo pelvis)* COMPARISON: None [facility] Other XR hip LT min 2V(w/wo pelvis)* FINDINGS: [employer] Other XR hip LT min 2V(w/wo pelvis)* There is mild narrowing of the joint spaces of the hips. Degenerative changes are noted in the [employer] Other XR hip LT min 2V(w/wo pelvis)* lumbar spine and sacroiliac joints. The bony ring of the pelvis is intact. There is no fracture or [employer] Other XR hip LT min 2V(w/wo pelvis)* dislocation. Vascular calcifications are present. [employer] Other XR hip LT min 2V(w/wo pelvis)* XR/XR hip LT min 2V(w/wo pelvis)* [employer] Other XR hip LT min 2V(w/wo pelvis)* IMPRESSION: [employer] Other XR hip LT min 2V(w/wo pelvis)* No fracture or dislocation. [facility] Other XR hip LT min 2V(w/wo pelvis)* Degenerative changes are noted in the lumbar spine and sacroiliac joints. [employer] Other XR hip LT min 2V(w/wo pelvis)* Impression dictated by: Calvin Thibodeaux M.D.06/05/2023 12:25 PM [employer] Other XR hip LT min 2V(w/wo pelvis)* Dictation Location: [facility]- [facility] Other XR hip LT min 2V(w/wo pelvis)* Transcribed By: NORMA 06/05/23 1225 [employer] Other XR hip LT min 2V(w/wo pelvis)* Dictated By: Calvin Thibodeaux II, MD 06/05/23 1223 [facility] Other XR hip LT min 2V(w/wo pelvis)* Signed By: [employer] Other XR hip LT min 2V(w/wo pelvis)* 06/05/23 1225 [employer] Other CBC AUTO DIFFon 02-21-2023 BASO # 0.1 103/ul Normal 0.0-0.1 [facility] Comment on above: Performed By: #### L IPID, T4, TSH, CMP #### [facility] [address] [place] [address] Dr. Rena Barone Basophils/100 WBC (Bld) 0.4 % Normal 0.2-2.0 [facility] Comment on above: Performed By: #### L IPID, T4, TSH, CMP #### [facility] [address] [place] [address] Dr. Rena Barone EO # 0.4 103/ul Normal 0.0-0.7 [facility] Comment on above: Performed By: #### L IPID, T4, TSH, CMP #### [facility] [address] [place] [address] Dr. Rena Barone Eosinophils/100 WBC (Bld) 3.1 % Normal 0.9-7.0 [facility] Comment on above: Performed By: #### L IPID, T4, TSH, CMP #### [facility] [address] [place] [address] Dr. Rena Barone Erythrocyte distribution width (RBC) [Ratio] 12.5 % Normal 11.0-15.0 [facility] Comment on above: Performed By: #### L IPID, T4, TSH, CMP #### [facility] [address] [place] [address] Dr. Rena Barone Hematocrit (Bld) [Volume fraction] 38.9 % Critically low 42.0-54.0 [facility] Comment on above: Performed By: #### L IPID, T4, TSH, CMP #### [facility] [address] [place] [address] Dr. Rena Barone Hemoglobin (Bld) [Mass/Vol] 13.2 g/dL Critically low 14.0-18.0 [facility] Comment on above: Performed By: #### L IPID, T4, TSH, CMP #### [facility] [address] [place] [address] Dr. Rena Barone IG # 0.05 10e3/ul Critically high 0.00-0.03 [facility] Comment on above: Performed By: #### L IPID, T4, TSH, CMP #### [facility] [address] [place] [address] Dr. Rena Barone IG % 0.4 % Normal 0.0-0.5 [facility] Comment on above: Performed By: #### L IPID, T4, TSH, CMP #### [facility] [address] [place] [address] Dr. Rena Barone LYMPH # 3.2 103/ul Normal 1.2-3.8 [facility] Comment on above: Performed By: #### L IPID, T4, TSH, CMP #### [facility] [address] [place] [address] Dr. Rena Barone Lymphocytes/100 WBC (Bld) 28.6 % Normal 20.5-60.0 [facility] Comment on above: Performed By: #### L IPID, T4, TSH, CMP #### [facility] [address] [place] [address] Dr. Rena Barone MANUAL DIFF REQ NO Normal [facility] Comment on above: Performed By: #### L IPID, T4, TSH, CMP #### [facility] [address] [place] [address] Dr. Rena Barone MCH (RBC) [Entitic mass] 33.7 pg Normal 25.9-34.0 [facility] Comment on above: Performed By: #### L IPID, T4, TSH, CMP #### [facility] [address] [place] [address] Dr. Rena Barone MCHC (RBC) [Mass/Vol] 33.9 g/dL Normal 29.9-35.2 [facility] Comment on above: Performed By: #### L IPID, T4, TSH, CMP #### [facility] [address] [place] [address] Dr. Rena Barone MCV (RBC) [Entitic vol] 99.2 fL Critically high 80.0-94.0 [facility] Comment on above: Performed By: #### L IPID, T4, TSH, CMP #### [facility] [address] [place] [address] Dr. Rena Barone MONO # 1.0 103/ul Critically high 0.3-0.8 [facility] Comment on above: Performed By: #### L IPID, T4, TSH, CMP #### [facility] [address] [place] [address] Dr. Rena Barone Monocytes/100 WBC (Bld) 8.8 % Normal 1.7-12.0 [facility] Comment on above: Performed By: #### L IPID, T4, TSH, CMP #### [facility] [address] [place] [address] Dr. Rena Barone NEUT # 6.6 103/ul Critically high 1.4-6.5 [facility] Comment on above: Performed By: #### L IPID, T4, TSH, CMP #### [facility] [address] [place] [address] Dr. Rena Barone Neutrophils/100 WBC (Bld) 58.7 % Normal 43.0-75.0 [facility] Comment on above: Performed By: #### L IPID, T4, TSH, CMP #### [facility] [address] [place] [address] Dr. Rena Barone Platelet mean volume (Bld) [Entitic vol] 11.2 fL Normal 9.5-13.5 [facility] Comment on above: Performed By: #### L IPID, T4, TSH, CMP #### [facility] [address] [place] [address] Dr. Rena Barone PLT 202 103/ul Normal 150-450 [facility] Comment on above: Performed By: #### L IPID, T4, TSH, CMP #### [facility] [address] [place] [address] [address] Rena Barone RBC 3.92 106/ul Critically low 4.70-6.10 [facility] Comment on above: Performed By: #### L IPID, T4, TSH, CMP #### [facility] [address] [place] [address] [address] Rena Barone WBC 11.3 103/ul Critically high 4.0-11.0 [facility] Comment on above: Performed By: #### L IPID, T4, TSH, CMP #### [facility] [address] [place] [address] [address] Rena Barone LIPID PROFILEon 02-21-2023 CHOL-HDL RATIO NORM SEE BELOW Normal [facility] Comment on above: Result Comment: 3.3 - 4.4 LOW RISK 4.4 - 7.1 AVERAGE RISK 7.1 - 11.0 MODERATE RISK >11.0 HIGH RISK Performed By: #### L IPID, T4, TSH, CMP #### [facility] [address] [place] [address] [address] Rena Barone Cholesterol [Mass/Vol] 127 mg/dL Normal <=200 [facility] Comment on above: Performed By: #### L IPID, T4, TSH, CMP #### [facility] [address] [place] [address] [address] Rena Barone Cholesterol in HDL [Mass/Vol] 24 mg/dL Critically low 40-60 [facility] Comment on above: Performed By: #### L IPID, T4, TSH, CMP #### [facility] [address] [place] [address] [address] Rena Barone Cholesterol in LDL [Mass/Vol] 58.4 mg/dL Normal [facility] Comment on above: Performed By: #### L IPID, T4, TSH, CMP #### [facility] [address] [place] [address] [address] Rena Barone Cholesterol.total/C holesterol in HDL [Mass ratio] 5.3 {ratio} Normal [facility] Comment on above: Performed By: #### L IPID, T4, TSH, CMP #### [facility] [address] [place] [address] [address] Rena Barone HDL NORMAL > or = 60 mg/dl - LO W CARDIOVASCULAR RISK <40 mg/dl - HIGH CARDIOVASCULAR RISK Normal [facility] Comment on above: Performed By: #### L IPID, T4, TSH, CMP #### [facility] [address] [place] [address] [address] Rena Barone LDL CALC NORMAL SEE BELOW Normal [facility] Comment on above: Result Comment: <100 mg/dl OPTIMAL 100 - 129 mg/dl NEAR OR ABOVE OPTIMAL 130 - 159 mg/dl BORDERLINE HIGH 160 - 189 mg/dl HIGH >190 mg/dl VERY HIGH Performed By: #### L IPID, T4, TSH, CMP #### [facility] [address] [place] [address] [address] Rena Barone Triglyceride [Mass/Vol] 223 mg/dL Critically high <=150 [facility] Comment on above: Performed By: #### L IPID, T4, TSH, CMP #### [facility] [address] [place] [address] Dr. Rena Barone VLDL CALC 44.6 mg/dL Normal [facility] Comment on above: Performed By: #### L IPID, T4, TSH, CMP #### [facility] [address] [place] [address] Dr. Rena Barone PROF 14(COMP METB)on 023 Albumin [Mass/Vol] 3.8 g/dL Normal 3.4-5.0 [facility] Comment on above: Performed By: #### L IPID, T4, TSH, CMP #### [facility] [address] [place] [address] Dr. Rena Barone Albumin/Globulin [Mass ratio] 0.9 {ratio} Normal [facility] Comment on above: Performed By: #### L IPID, T4, TSH, CMP #### [facility] [address] [place] [address] Dr. Rena Barone ALP [Catalytic activity/Vol] 99 U/L Normal 46-116 [facility] Comment on above: Performed By: #### L IPID, T4, TSH, CMP #### [facility] [address] [place] [address] Dr. Rena Barone ALT [Catalytic activity/Vol] 31 U/L Normal 16-63 [facility] Comment on above: Performed By: #### L IPID, T4, TSH, CMP #### [facility] [address] [place] [address] Dr. Rena Barone Anion gap [Moles/Vol] 10.3 mmol/L Normal [facility] Comment on above: Performed By: #### L IPID, T4, TSH, CMP #### [facility] [address] [place] [address] Dr. Rena Barone AST [Catalytic activity/Vol] 23 U/L Normal 15-37 [facility] Comment on above: Performed By: #### L IPID, T4, TSH, CMP #### [facility] [address] [place] [address] Dr. Rena Barone Bilirubin [Mass/Vol] 0.5 mg/dL Normal 0.2-1.0 [facility] Comment on above: Performed By: #### L IPID, T4, TSH, CMP #### [facility] [address] [place] [address] Dr. Rena Barone Calcium [Mass/Vol] 9.3 mg/dL Normal 8.5-10.1 [facility] Comment on above: Performed By: #### L IPID, T4, TSH, CMP #### [facility] [address] [place] [address] Dr. Rena Barone Chloride [Moles/Vol] 100 mmol/L Normal 98-107 [facility] Comment on above: Performed By: #### L IPID, T4, TSH, CMP #### [facility] [address] [place] [address] Dr. Rena Barone CO2 [Moles/Vol] 25.9 mmol/L Normal 21.0-32.0 [facility] Comment on above: Performed By: #### L IPID, T4, TSH, CMP #### [facility] [address] [place] [address] Dr. Rena Barone Creatinine [Mass/Vol] 1.34 mg/dL Critically high 0.70-1.30 [facility] Comment on above: Performed By: #### L IPID, T4, TSH, CMP #### [facility] [address] [place] [address] Dr. Rena Barone EGFR-AF TURKS AND CAICOS ISLANDER >60 Normal >=60 [facility] Comment on above: Performed By: #### L IPID, T4, TSH, CMP #### [facility] [address] [address] [address] Rena Barone EGFR-NON AF TURKS AND CAICOS ISLANDER 54 mL/min/1.73m2 Critically low >=60 [facility] Comment on above: Performed By: #### L IPID, T4, TSH, CMP #### [facility] [address] [place] [address] Dr. Rena Barone Globulin (S) [Mass/Vol] 4.1 g/dL Normal [facility] Comment on above: Performed By: #### L IPID, T4, TSH, CMP #### [facility] [address] [place] [address] Dr. Rena Barone Glucose [Mass/Vol] 108 mg/dL Critically high 74-106 T [facility] Comment on above: Performed By: #### L IPID, T4, TSH, CMP #### [facility] [address] [place] [address] Dr. Rena Barone Potassium [Moles/Vol] 4.2 mmol/L Normal 3.5-5.1 [facility] Comment on above: Performed By: #### L IPID, T4, TSH, CMP #### [facility] [address] [place] [address] Dr. Rena Barone Protein [Mass/Vol] 7.9 g/dL Normal 6.4-8.2 [facility] Comment on above: Performed By: #### L IPID, T4, TSH, CMP #### [facility] [address] [place] [address] Dr. Rena Barone Sodium [Moles/Vol] 132 mmol/L Critically low 136-145 Th [facility] Comment on above: Performed By: #### L IPID, T4, TSH, CMP #### [facility] [address] [address] [address] Rena Barone Urea nitrogen [Mass/Vol] 30.0 mg/dL Critically high 7.0-18.0 [facility] Comment on above: Performed By: #### L IPID, T4, TSH, CMP #### [facility] [address] [place] [address] Dr. Rena Barone Urea nitrogen/Creatinine [Mass ratio] 22.4 mg/mg Normal [facility] Comment on above: Performed By: #### L IPID, T4, TSH, CMP #### [facility] [address] [place] [address] Dr. Rena Barone T4on 02-21-2023 T4 [Mass/Vol] 5.20 ug/dL Normal 4.50-12.10 [facility] Comment on above: Performed By: #### L IPID, T4, TSH, CMP #### [facility] [address] [place] [address] Dr. Rena Barone TSHon 02-21-2023 TSH 2.379 uIU/mL Normal 0.358-3.740 [facility] Comment on above: Performed By: #### L IPID, T4, TSH, CMP #### [facility] [address] [place] [address] Dr. Rena Barone GLYCOHEMOGLOBIN A1Con 2022 ADA RECOMMENDATION SEE BELOW Normal [facility] Comment on above: Result Comment: ADA RECOMMENDED LIMIT 4.0 - 6.0 ADA THERAPEUTIC TARGET < 7.0 ACTION SUGGESTED > 7.0 Performed By: #### L IPID, T4, TSH, CMP #### [facility] [address] [place] [address] Dr. Rena Barone Glucose [Mass/Vol] 169 mg/dL Normal [facility] Comment on above: Performed By: #### L IPID, T4, TSH, CMP #### [facility] [address] [place] [address] Dr. Rena Barone HbA1c (Bld) [Mass fraction] 7.5 % Critically high 4.5-6.2 [facility] Comment on above: Performed By: #### L IPID, T4, TSH, CMP #### [facility] [address] [address] [address] Rena Barone Glucose Glucometer (BldC) [M ass/Vol]Ordered By: Deon Greene on 10-07-2022 Glucose [Mass/Vol] 170 mg/dL [facility] Comment on above: Random Glucose Refer ence Range is dependent on time and content of last meal. Glucose of more than 200 mg/dL in a nonstressed, ambulatory subject supports the diagnosis of Diabetes Mellitus. GLYCOHEMOGLOBIN A1Con 2021 ADA RECOMMENDATION SEE BELOW Normal [facility] Comment on above: Result Comment: ADA RECOMMENDED LIMIT 4.0 - 6.0 ADA THERAPEUTIC TARGET < 7.0 ACTION SUGGESTED > 7.0 Performed By: #### L IPID, T4, TSH, CMP #### [facility] [address] [address] [address] Rena Barone Glucose [Mass/Vol] 160 mg/dL Normal [facility] Comment on above: Performed By: #### L IPID, T4, TSH, CMP #### [facility] [address] [address] [address] Rena Barone HbA1c (Bld) [Mass fraction] 7.2 % Critically high 4.5-6.2 [facility] Comment on above: Performed By: #### L IPID, T4, TSH, CMP #### [facility] [address] [address] [address] Rena Barone Physician Referralon 022 Physician Referral [id number] Normal [facility] COVID Quick Testingon 2021 Result Positive [facility] Other METHYLMALONIC ACID (MMA)on 0 03-23-2022 Methylmalonic Acid, Serum 210 nmol/L Normal 0-378 [facility] Comment on above: Performed By: #### L IPID, T4, TSH, CMP #### [facility] [address] [address] [address] Rena Barone FOLATE ([facility])on Folate 16.6 ng/mL Normal >3.0 [facility] Comment on above: Result Comment: A se rum folate concentration of less than 3.1 ng/mL is considered to represent clinical deficiency. Performed By: #### L IPID, T4, TSH, CMP #### [facility] [address] [address] [address] Rena Barone GLYCOHEMOGLOBIN A1Con 2021 ADA RECOMMENDATION SEE BELOW Normal [facility] Comment on above: Result Comment: ADA RECOMMENDED LIMIT 4.0 - 6.0 ADA THERAPEUTIC TARGET < 7.0 ACTION SUGGESTED > 7.0 Performed By: #### L IPID, T4, TSH, CMP #### [facility] [address] [address] [address] Rena Barone Glucose [Mass/Vol] 160 mg/dL Normal [facility] Comment on above: Performed By: #### L IPID, T4, TSH, CMP #### [facility] [address] [address] [address] Rena Barone HbA1c (Bld) [Mass fraction] 7.2 % Critically high 4.5-6.2 [facility] Comment on above: Performed By: #### L IPID, T4, TSH, CMP #### [facility] [address] [address] [address] Rena Barone RETICULOCYTEon 03-15-2022 RETIC 1.64 % Normal 0.60-3.10 [facility] Comment on above: Performed By: #### R ETIC #### [facility] [address] [address] [address] Rena Barone VITAMIN B12on 03-15-2022 Cobalamin (Vitamin B12) [Mass/Vol] 386.0 pg/mL Normal 193.0-986.0 [facility] Comment on above: Performed By: #### L IPID, T4, TSH, CMP #### [facility] [address] [place] [address] Dr. Rena Barone CBC AUTO DIFFon 02-26-2022 BASO # 0.0 103/ul Normal 0.0-0.1 [facility] Comment on above: Performed By: #### L IPID, T4, TSH, CMP #### [facility] [address] [place] [address] Dr. Rena Barone Basophils/100 WBC (Bld) 0.3 % Normal 0.2-2.0 [facility] Comment on above: Performed By: #### L IPID, T4, TSH, CMP #### [facility] [address] [place] [address] Dr. Rena Barone EO # 0.2 103/ul Normal 0.0-0.7 [facility] Comment on above: Performed By: #### L IPID, T4, TSH, CMP #### [facility] [address] [place] [address] Dr. Rena Barone Eosinophils/100 WBC (Bld) 2.0 % Normal 0.9-7.0 [facility] Comment on above: Performed By: #### L IPID, T4, TSH, CMP #### [facility] [address] [place] [address] Dr. Rena Barone Erythrocyte distribution width (RBC) [Ratio] 12.9 % Normal 11.0-15.0 [facility] Comment on above: Performed By: #### L IPID, T4, TSH, CMP #### [facility] [address] [place] [address] Dr. Rena Barone Hematocrit (Bld) [Volume fraction] 38.1 % Critically low 42.0-54.0 [facility] Comment on above: Performed By: #### L IPID, T4, TSH, CMP #### [facility] [address] [place] [address] Dr. Rena Barone Hemoglobin (Bld) [Mass/Vol] 12.5 g/dL Critically low 14.0-18.0 [facility] Comment on above: Performed By: #### L IPID, T4, TSH, CMP #### [facility] [address] [place] [address] Dr. Rena Barone IG # 0.03 10e3/ul Normal 0.00-0.03 [facility] Comment on above: Performed By: #### L IPID, T4, TSH, CMP #### [facility] [address] [place] [address] Dr. Rena Barone IG % 0.3 % Normal 0.0-0.5 [facility] Comment on above: Performed By: #### L IPID, T4, TSH, CMP #### [facility] [address] [place] [address] Dr. Rena Barone LYMPH # 1.8 103/ul Normal 1.2-3.8 [facility] Comment on above: Performed By: #### L IPID, T4, TSH, CMP #### [facility] [address] [place] [address] Dr. Rena Barone Lymphocytes/100 WBC (Bld) 18.9 % Critically low 20.5-60.0 [facility] Comment on above: Performed By: #### L IPID, T4, TSH, CMP #### [facility] [address] [place] [address] Dr. Rnea Barone MANUAL DIFF REQ NO Normal [facility] Comment on above: Performed By: #### L IPID, T4, TSH, CMP #### [facility] [address] [place] [address] Dr. Rena Barone MCH (RBC) [Entitic mass] 33.3 pg Normal 25.9-34.0 [facility] Comment on above: Performed By: #### L IPID, T4, TSH, CMP #### [facility] [address] [place] [address] Dr. Rena Barone MCHC (RBC) [Mass/Vol] 32.8 g/dL Normal 29.9-35.2 [facility] Comment on above: Performed By: #### L IPID, T4, TSH, CMP #### [facility] [address] [place] [address] Dr. Rena Barone MCV (RBC) [Entitic vol] 101.6 fL Critically high 80.0-94.0 [facility] Comment on above: Performed By: #### L IPID, T4, TSH, CMP #### [facility] [address] [place] [address] Dr. Rena Barone MONO # 0.8 103/ul Normal 0.3-0.8 [facility] Comment on above: Performed By: #### L IPID, T4, TSH, CMP #### [facility] [address] [place] [address] Dr. Rena Barone Monocytes/100 WBC (Bld) 9.0 % Normal 1.7-12.0 [facility] Comment on above: Performed By: #### L IPID, T4, TSH, CMP #### [facility] [address] [place] [address] Dr. Rena Barone NEUT # 6.5 103/ul Normal 1.4-6.5 [facility] Comment on above: Performed By: #### L IPID, T4, TSH, CMP #### [facility] [address] [place] [address] Dr. Rena Barone Neutrophils/100 WBC (Bld) 69.5 % Normal 43.0-75.0 [facility] Comment on above: Performed By: #### L IPID, T4, TSH, CMP #### [facility] [address] [place] [address] Dr. Rena Barone Platelet mean volume (Bld) [Entitic vol] 12.0 fL Normal 9.5-13.5 [facility] Comment on above: Performed By: #### L IPID, T4, TSH, CMP #### [facility] [address] [place] [address] Dr. Rena Barone PLT 166 103/ul Normal 150-450 [facility] Comment on above: Performed By: #### L IPID, T4, TSH, CMP #### [facility] [address] [place] [address] Dr. Rena Barone RBC 3.75 106/ul Critically low 4.70-6.10 [facility] Comment on above: Performed By: #### L IPID, T4, TSH, CMP #### [facility] [address] [address] [address] Rena Barone WBC 9.3 103/ul Normal 4.0-11.0 [facility] Comment on above: Performed By: #### L IPID, T4, TSH, CMP #### [facility] [address] [address] [address] Rena Barone LIPID PROFILEon 02-26-2022 CHOL-HDL RATIO NORM SEE BELOW Normal [facility] Comment on above: Result Comment: 3.3 - 4.4 LOW RISK 4.4 - 7.1 AVERAGE RISK 7.1 - 11.0 MODERATE RISK >11.0 HIGH RISK Performed By: #### L IPID, T4, TSH, CMP #### [facility] [address] [address] [address] Rena Barone Cholesterol [Mass/Vol] 133 mg/dL Normal <=200 [facility] Comment on above: Performed By: #### L IPID, T4, TSH, CMP #### [facility] [address] [address] [address] Rena Barone Cholesterol in HDL [Mass/Vol] 29 mg/dL Critically low 40-60 [facility] Comment on above: Performed By: #### L IPID, T4, TSH, CMP #### [facility] [address] [address] [address] Rena Barone Cholesterol in LDL [Mass/Vol] 66.8 mg/dL Normal [facility] Comment on above: Performed By: #### L IPID, T4, TSH, CMP #### [facility] [address] [address] [address] Rena Barone Cholesterol.total/C holesterol in HDL [Mass ratio] 4.6 {ratio} Normal [facility] Comment on above: Performed By: #### L IPID, T4, TSH, CMP #### [facility] [address] [address] [address] Rena Barone HDL NORMAL > or = 60 mg/dl - LO W CARDIOVASCULAR RISK <40 mg/dl - HIGH CARDIOVASCULAR RISK Normal [facility] Comment on above: Performed By: #### L IPID, T4, TSH, CMP #### [facility] [address] [address] [address] Rena Barone LDL CALC NORMAL SEE BELOW Normal [facility] Comment on above: Result Comment: <100 mg/dl OPTIMAL 100 - 129 mg/dl NEAR OR ABOVE OPTIMAL 130 - 159 mg/dl BORDERLINE HIGH 160 - 189 mg/dl HIGH >190 mg/dl VERY HIGH Performed By: #### L IPID, T4, TSH, CMP #### [facility] [address] [address] [address] Rena Barone Triglyceride [Mass/Vol] 186 mg/dL Critically high <=150 [facility] Comment on above: Performed By: #### L IPID, T4, TSH, CMP #### [facility] [address] [address] [address] Rena Barone VLDL CALC 37.2 mg/dL Normal [facility] Comment on above: Performed By: #### L IPID, T4, TSH, CMP #### [facility] [address] [place] [address] Dr. Rena Barone PROF 14(COMP METB)on 022 Albumin [Mass/Vol] 3.8 g/dL Normal 3.4-5.0 [facility] Comment on above: Performed By: #### L IPID, T4, TSH, CMP #### [facility] [address] [place] [address] Dr. Rena Barone Albumin/Globulin [Mass ratio] 1.0 {ratio} Normal [facility] Comment on above: Performed By: #### L IPID, T4, TSH, CMP #### [facility] [address] [place] [address] Dr. Rena Barone ALP [Catalytic activity/Vol] 83 U/L Normal 46-116 [facility] Comment on above: Performed By: #### L IPID, T4, TSH, CMP #### [facility] [address] [address] [address] Rena Barone ALT [Catalytic activity/Vol] 28 U/L Normal 16-63 [facility] Comment on above: Performed By: #### L IPID, T4, TSH, CMP #### [facility] [address] [place] [address] Dr. Rena Barone Anion gap [Moles/Vol] 15.9 mmol/L Normal [facility] Comment on above: Performed By: #### L IPID, T4, TSH, CMP #### [facility] [address] [place] [address] Dr. Rena Barone AST [Catalytic activity/Vol] 16 U/L Normal 15-37 [facility] Comment on above: Performed By: #### L IPID, T4, TSH, CMP #### [facility] [address] [place] [address] Dr. Rena Barone Bilirubin [Mass/Vol] 0.6 mg/dL Normal 0.2-1.0 [facility] Comment on above: Performed By: #### L IPID, T4, TSH, CMP #### [facility] [address] [place] [address] Dr. Rena Barone Calcium [Mass/Vol] 8.9 mg/dL Normal 8.5-10.1 [facility] Comment on above: Performed By: #### L IPID, T4, TSH, CMP #### [facility] [address] [place] [address] Dr. Rena Barone Chloride [Moles/Vol] 101 mmol/L Normal 98-107 [facility] Comment on above: Performed By: #### L IPID, T4, TSH, CMP #### [facility] [address] [place] [address] Dr. Rena Barone CO2 [Moles/Vol] 24.4 mmol/L Normal 21.0-32.0 [facility] Comment on above: Performed By: #### L IPID, T4, TSH, CMP #### [facility] [address] [place] [address] Dr. Rena Barone Creatinine [Mass/Vol] 1.09 mg/dL Normal 0.70-1.30 [facility] Comment on above: Performed By: #### L IPID, T4, TSH, CMP #### [facility] [address] [address] [address] Rena Barone EGFR-AF TURKS AND CAICOS ISLANDER >60 Normal >=60 [facility] Comment on above: Performed By: #### L IPID, T4, TSH, CMP #### [facility] [address] [address] [address] Rena Barone EGFR-NON AF TURKS AND CAICOS ISLANDER >60 Normal >=60 [facility] Comment on above: Performed By: #### L IPID, T4, TSH, CMP #### [facility] [address] [address] [address] Rena Barone Globulin (S) [Mass/Vol] 3.8 g/dL Normal [facility] Comment on above: Performed By: #### L IPID, T4, TSH, CMP #### [facility] [address] [place] [address] Dr. Rena Barone Glucose [Mass/Vol] 130 mg/dL Critically high 74-106 [facility] Comment on above: Performed By: #### L IPID, T4, TSH, CMP #### [facility] [address] [place] [address] Dr. Rena Barone Potassium [Moles/Vol] 4.3 mmol/L Normal 3.5-5.1 [facility] Comment on above: Performed By: #### L IPID, T4, TSH, CMP #### [facility] [address] [place] [address] Dr. Rena Barone Protein [Mass/Vol] 7.6 g/dL Normal 6.4-8.2 [facility] Comment on above: Performed By: #### L IPID, T4, TSH, CMP #### [facility] [address] [place] [address] Dr. Rena Barone Sodium [Moles/Vol] 137 mmol/L Normal 136-145 [facility] Comment on above: Performed By: #### L IPID, T4, TSH, CMP #### [facility] [address] [address] [address] Rena Barone Urea nitrogen [Mass/Vol] 26.0 mg/dL Critically high 7.0-18.0 [facility] Comment on above: Performed By: #### L IPID, T4, TSH, CMP #### [facility] [address] [address] [address] Rena Barone Urea nitrogen/Creatinine [Mass ratio] 23.9 mg/mg Normal [facility] Comment on above: Performed By: #### L IPID, T4, TSH, CMP #### [facility] [address] [address] [address] eRna Barone T4on 02-26-2022 T4 [Mass/Vol] 4.20 ug/dL Critically low 4.50-12.10 [facility] Comment on above: Performed By: #### L IPID, T4, TSH, CMP #### [facility] [address] [address] [address] Rena Barone TSHon 02-26-2022 TSH 3.428 uIU/mL Normal 0.358-3.740 [facility] Comment on above: Performed By: #### L IPID, T4, TSH, CMP #### [facility] [address] [address] [address] Rena Barone TSH RANGE SEE BELOW Normal [facility] Comment on above: Result Comment: <0.3 4 UIU/ml HYPERTHYROID 0.34-5.60 UIU/ml EUTHYROID >5.60 UIU/ml HYPOTHYROID Performed By: #### L IPID, T4, TSH, CMP #### [facility] [address] [address] [address] Rena Barone Vital Signs Date Time Vital Sign Value Performing Clinician Facility 11-26-2024 08:59-0500 Body height 177.8 cm [facility] 11-26-2024 08:59-0500 Body mass index (BMI) [Ratio] 46.3 kg/m2 [facility] 11-26-2024 08:59-0500 Body weight 146.51 kg [facility] 11-26-2024 08:59-0500 Diastolic blood pressure 79 mm[Hg] [facility] 11-26-2024 08:59-0500 Heart rate 76 /min [facility] 11-26-2024 08:59-0500 SaO2% (BldA) [Mass fraction] 97 % [facility] 11-26-2024 08:59-0500 Systolic blood pressure 122 mm[Hg] [facility] 11-12-2024 08:56-0500 Body height 177.8 cm [facility] 11-12-2024 08:56-0500 Body mass index (BMI) [Ratio] 45.5 kg/m2 [facility] 11-12-2024 08:56-0500 Body weight 143.84 kg [facility] 11-12-2024 08:56-0500 Diastolic blood pressure 78 mm[Hg] [facility] 11-12-2024 08:56-0500 Heart rate 83 /min [facility] 11-12-2024 08:56-0500 Respiratory rate 12 /min [facility] 11-12-2024 08:56-0500 SaO2% (BldA) [Mass fraction] 97 % [facility] 11-12-2024 08:56-0500 Systolic blood pressure 112 mm[Hg] [facility] 09-20-2024 14:32-0500 Body height 177.8 cm [facility] 09-20-2024 14:32-0500 Body mass index (BMI) [Ratio] 46.7 kg/m2 [facility] 09-20-2024 14:32-0500 Body weight 147.64 kg [facility] 09-20-2024 14:32-0500 Diastolic blood pressure 81 mm[Hg] [facility] 09-20-2024 14:32-0500 Heart rate 69 /min [facility] 09-20-2024 14:32-0500 Respiratory rate 16 /min [facility] 09-20-2024 14:32-0500 Systolic blood pressure 122 mm[Hg] [facility] 07-16-2024 09:00-0400 Body mass index (BMI) [Ratio] 45.3 kg/m2 [facility] 07-16-2024 09:00-0400 Diastolic blood pressure 69 mm[Hg] [facility] 07-16-2024 09:00-0400 Heart rate 75 /min [facility] 07-16-2024 09:00-0400 Systolic blood pressure 108 mm[Hg] [facility] 07-13-2024 22:16-0400 Body height 177.8 cm [facility] 07-13-2024 22:16-0400 Body weight 143.33 kg [facility] 03-12-2024 09:46-0400 Body height 177.8 cm [facility] 03-12-2024 09:46-0400 Body mass index (BMI) [Ratio] 45.3 kg/m2 [facility] 03-12-2024 09:46-0400 Body weight 143.5 kg [facility] 03-12-2024 09:46-0400 Diastolic blood pressure 69 mm[Hg] [facility] 03-12-2024 09:46-0400 Heart rate 80 /min [facility] 03-12-2024 09:46-0400 Respiratory rate 16 /min [facility] 03-12-2024 09:46-0400 Systolic blood pressure 107 mm[Hg] [facility] 11-07-2023 09:00-0500 Body height 177.8 cm Delonte Ball Other [facility] Other 11-07-2023 09:00-0500 Body mass index (BMI) [Ratio] 45.11 kg/m2 Delonte Ball Other [facility] Other 11-07-2023 09:00-0500 Body weight 142.61 kg Delonte Ball Other [facility] Other 11-07-2023 09:00-0500 Diastolic blood pressure 86 mm[Hg] Delonte Ball Other [facility] [employer] Other 11-07-2023 09:00-0500 Respiratory rate 16 /min Delonte Ball Other [facility] [employer] Other 11-07-2023 09:00-0500 Systolic blood pressure 131 mm[Hg] Delonte Ball Other [facility] Other 07-25-2023 09:00-0400 Body height 177.8 cm Delonte Ball Other [facility] Other 07-25-2023 09:00-0400 Body mass index (BMI) [Ratio] 46.54 kg/m2 Delonte Ball Other [facility] Other 07-25-2023 09:00-0400 Body weight 147.15 kg Delonte Ball Other [facility] Other 07-25-2023 09:00-0400 Diastolic blood pressure 83 mm[Hg] Delonte Ball Other [facility] Other 07-25-2023 09:00-0400 Respiratory rate 16 /min Delonte Ball Other [facility] Other 07-25-2023 09:00-0400 Systolic blood pressure 130 mm[Hg] Delonte Ball Other [facility] Other 06-05-2023 11:25-0400 Body height 177.8 cm Bonny Raymundo Other [facility] Other 06-05-2023 11:25-0400 Body mass index (BMI) [Ratio] 46.48 kg/m2 Bonny Raymundo Other [facility] Other 06-05-2023 11:25-0400 Body temperature 98.2 [degF] Bonny Raymundo Other [facility] Other 06-05-2023 11:25-0400 Body weight 146.97 kg Bonny Raymundo Other [facility] Other 06-05-2023 11:25-0400 Diastolic blood pressure 61 mm[Hg] Bonny Raymundo Other [facility] Other 06-05-2023 11:25-0400 Respiratory rate 18 /min Bonny Raymundo Other [facility] Other 06-05-2023 11:25-0400 SaO2% (BldA) [Mass fraction] 97 % Bonny Raymundo Other [facility] Other 06-05-2023 11:25-0400 Systolic blood pressure 109 mm[Hg] Bonny Raymundo Other [facility] Other 02-14-2023 11:00-0400 Body height 177.8 cm Bonny Raymundo Other [facility] Other 02-14-2023 11:00-0400 Body mass index (BMI) [Ratio] 47.06 kg/m2 Bonny Raymundo Other [facility] Other 02-14-2023 11:00-0400 Body temperature 98 [degF] Bonny Raymundo Other [facility] Other 02-14-2023 11:00-0400 Body weight 148.78 kg Bonny Raymundo Other [facility] Other 02-14-2023 11:00-0400 Diastolic blood pressure 73 mm[Hg] Bonny Raymundo Other [facility] Other 02-14-2023 11:00-0400 Respiratory rate 18 /min Bonny Raymundo Other [facility] Other 02-14-2023 11:00-0400 SaO2% (BldA) [Mass fraction] 96 % Bonny Raymundo Other [facility] Other 02-14-2023 11:00-0400 Systolic blood pressure 130 mm[Hg] Bonny Raymundo Other [facility] Other 01-09-2023 12:30-0400 Body height 177.8 cm Delonte Ball Other [facility] Other 01-09-2023 12:30-0400 Body mass index (BMI) [Ratio] 48.18 kg/m2 Delonte Ball Other [facility] Other 01-09-2023 12:30-0400 Body weight 152.32 kg Delonte Ball Other [facility] Other 01-09-2023 12:30-0400 Diastolic blood pressure 78 mm[Hg] Delonte Ball Other [facility] Other 01-09-2023 12:30-0400 Respiratory rate 16 /min Delonte Ball Other [facility] Other 01-09-2023 12:30-0400 Systolic blood pressure 124 mm[Hg] Delonte Ball Other [facility] Other 11-01-2022 11:00-0500 Body height 177.8 cm Delonte Ball Other [facility] Other 11-01-2022 11:00-0500 Body mass index (BMI) [Ratio] 48.58 kg/m2 Delonte Ball Other [facility] Other 11-01-2022 11:00-0500 Body weight 153.59 kg Delonte Ball Other [facility] Other 11-01-2022 11:00-0500 Diastolic blood pressure 76 mm[Hg] Delonte Ball Other [facility] [employer] Other 11-01-2022 11:00-0500 Respiratory rate 16 /min Delonte Ball Other [facility] [employer] Other 11-01-2022 11:00-0500 Systolic blood pressure 122 mm[Hg] Delonte Ball Other [facility] [employer] Other 10-07-2022 10:20-0500 Diastolic blood pressure 68 mm[Hg] DO Delonte Ball Work Phone: [facility] 10-07-2022 10:20-0500 Heart rate 93 /min DO Delonte Ball Work Phone: [facility] 10-07-2022 10:20-0500 Respiratory rate 16 /min DO Delonte Ball Work Phone: [facility] 10-07-2022 10:20-0500 SaO2% (BldA) [Mass fraction] 98 % DO Delonte Ball Work Phone: [facility] 10-07-2022 10:20-0500 Systolic blood pressure 114 mm[Hg] DO Delonte Ball Work Phone: [facility] 10-07-2022 08:37-0500 Body height 176.53 cm DO Delonte Ball Work Phone: [facility] 10-07-2022 08:37-0500 Body temperature 98.7 [degF] DO Delonte Ball Work Phone: [facility] 10-07-2022 08:37-0500 Body weight 147.41 kg DO Delonte Ball Work Phone: [facility] 05-19-2022 12:40-0400 Body height 177.8 cm Bonny Raymundo Other [facility] Other 05-19-2022 12:40-0400 Body mass index (BMI) [Ratio] 45.91 kg/m2 Bonny Raymundo Other [facility] Other 05-19-2022 12:40-0400 Body temperature 100.6 [degF] Bonny Raymundo Other [facility] Other 05-19-2022 12:40-0400 Body weight 145.15 kg Bonny Raymundo Other [facility] Other 05-19-2022 12:40-0400 SaO2% (BldA) [Mass fraction] 98 % Bonny Raymundo Other [facility] Other 08-12-2021 12:30-0400 Body temperature 98.2 [degF] Bonny Betoy Other [facility] Other 08-12-2021 12:30-0400 SaO2% (BldA) [Mass fraction] 92 % Bonny Ginty Other [facility] Other Encounters Encounter Date Encounter Type Care Provider Facility Start: 12-28-2024 End: 12-28-2024 ambulatory KINA MCQUEEN Not Available Start: 12-24-2024 End: 12-24-2024 ambulatory JOSEPHINE ELENA Not Available Start: 12-15-2024 ambulatory [facility] Work Phone: Start: 12-15-2024 Non-patient / Non-visit [facility] Work Phone: Start: 11-30-2024 End: 11-30-2024 ambulatory [facility] Start: 11-26-2024 End: 11-26-2024 ambulatory [facility] Work Phone: Start: 11-26-2024 End: 11-26-2024 Patient encounter procedure [facility] Work Phone: Start: 11-12-2024 End: 11-12-2024 ambulatory [facility] Work Phone: Start: 11-12-2024 End: 11-12-2024 Encounter for general adult medical examination without abnormal findings [facility] Start: 11-12-2024 End: 11-12-2024 Patient encounter procedure [facility] Work Phone: Start: 11-11-2024 Non-patient / Non-visit [facility] Work Phone: Start: 11-10-2024 [facility] Start: 10-27-[facility]24 [facility] Start: 10-27-2024 End: 10-27-2024 ambulatory RISK CONTROL DIRECTOR [facility] Start: 10-25-2024 Non-patient / Non-visit [facility] Work Phone: Start: 09-29-2024 End: 09-29-2024 ambulatory [facility] Start: 09-27-2024 Non-patient / Non-visit [facility] Work Phone: Start: 09-20-2024 End: 09-20-2024 Patient encounter procedure [facility] Work Phone: Start: 09-17-2024 Non-patient / Non-visit [facility] Work Phone: Start: 09-14-2024 Non-patient / Non-visit [facility] Work Phone: Start: 09-10-2024 Evaluation and management of inpatient [facility] Start: 09-09-2024 Evaluation and management of inpatient FELIPE [facility] Start: 09-09-2024 Evaluation and management of inpatient [facility] Start: 09-09-2024 ambulatory [facility] Start: 09-09-2024 End: 09-12-2024 Evaluation and management of inpatient [facility] Start: 09-07-2024 ambulatory [facility] Start: 07-27-2024 End: 07-27-2024 ambulatory [facility] Start: 07-16-2024 End: 07-16-2024 ambulatory [facility] Work Phone: Start: 07-16-2024 End: 07-16-2024 Patient encounter procedure [facility] Work Phone: Start: 06-23-2024 Non-patient / Non-visit [facility] Work Phone: Start: 04-21-2024 End: 04-21-2024 [facility] Start: 03-24-2024 ambulatory [facility] Start: 03-24-2024 End: 03-24-2024 ambulatory [facility] Start: 03-12-2024 End: 03-12-2024 ambulatory [facility] Work Phone: Start: 03-12-2024 End: 03-12-2024 Patient encounter procedure [facility] Work Phone: Start: 01-20-2024 End: 01-20-2024 ambulatory [facility] Start: 12-18-2023 Non-patient / Non-visit [facility] Work Phone: Start: 12-17-2023 End: 12-17-2023 ambulatory KOLBY [facility] Start: 11-07-2023 End: 11-07-2023 ambulatory Delonte Olivo Other [facility] Other Start: 11-07-2023 Encounter for genera l adult medical examination without abnormal findings Delonte Olivo [facility] Start: 11-07-2023 Periodic preventive med est patient 40-64yrs Delonte Olivo [facility] Start: 10-18-2023 End: 10-18-2023 ambulatory Bonny Raymundo Other [facility] Other Start: 10-18-2023 Telephone encounter Bonny Raymundo [facility] Start: 10-17-2023 Telephone encounter Delonte BURDICK [facility] Start: 10-17-2023 End: 10-17-2023 ambulatory DO Delonte Olivo Work Phone: [facility] Other Start: 10-17-2023 End: 10-17-2023 Patient encounter procedure DO Delonte Olivo Work Phone: [facility] Work Phone: Start: 10-09-2023 End: 10-09-2023 ambulatory Delonte Olivo Other [facility] Other Start: 10-09-2023 Telephone encounter Delonte Olivo [facility] Start: 07-25-2023 End: 07-25-2023 ambulatory Delonte Olivo Other [facility] Other Start: 07-25-2023 Office outpatient visit 25 minutes Delonte Olivo [facility] Start: 07-21-2023 End: 07-21-2023 ambulatory Bonny Raymundo Other [facility] Other Start: 07-21-2023 Telephone encounter Bonny Raymundo [facility] Start: 07-11-2023 End: 07-11-2023 ambulatory Delonte Olivo Other [facility] Other Start: 07-11-2023 Telephone encounter Delonte Olivo [facility] Start: 06-06-2023 End: 06-06-2023 ambulatory Delonte Olivo Other [facility] Other Start: 06-06-2023 Telephone encounter [facility]onte [facility] Start: 06-05-2023 Office outpatient visit 15 minutes Bonny Raymundo [facility] Start: 06-05-2023 Telephone encounter Delonte BURDICK [facility] Start: 06-05-2023 End: 06-05-2023 ambulatory DO Delonte Olivo Work Phone: [facility] Other Start: 06-05-2023 End: 06-05-2023 Patient encounter procedure DO Delonte Olivo Work Phone: [facility] Work Phone: Start: 04-18-2023 End: 04-18-2023 ambulatory Delonte Olivo Other [facility] Other Start: 04-18-2023 Telephone encounter Delonte BURDICK [facility] Start: 04-14-2023 End: 04-14-2023 ambulatory Delonte Olivo Other [facility] Other Start: 04-14-2023 Telephone encounter Delonte [facility]ani B[facility] Start: 02-21-2023 End: 02-22-[address] DELONTE OLIVO Facility:[facility] Start: 02-18-2023 End: 02-18-2023 ambulatory Delonte Geovani Other [facility] Other Start: 02-18-2023 Telephone encounter Delonte BURDICK [facility] Start: 02-14-2023 End: 02-14-2023 ambulatory Bonny Raymundo Other [facility] Other Start: 02-14-2023 Office outpatient visit 25 minutes Bonny Raymundo [facility] Start: 01-29-2023 End: 01-29-2023 ambulatory Delonte Olivo Other [facility] Other Start: 01-29-2023 Telephone encounter Delonte Olivo [facility] Start: 01-20-2023 End: 01-20-2023 ambulatory Delonte Olivo Other [facility] Other Start: 01-20-2023 Telephone encounter Delonte Olivo [facility] Start: 01-09-2023 End: 01-09-2023 ambulatory Delonte Olivo Other [facility] Other Start: 01-09-2023 Office outpatient visit 25 minutes Delonte Olivo [facility] Start: 12-24-2022 End: 12-24-2022 ambulatory Delonte Olivo Other [facility] Other Start: 12-24-2022 Telephone encounter Delonte Olivo [facility] Start: 12-06-2022 End: 12-07-[address] NONE LISTED REQUEST Facility:[facility] Start: 11-29-2022 End: 11-30-[address] NONE LISTED REQUEST Facility: Start: 11-25-2022 End: 11-25-2022 ambulatory Delonte Olivo Other [facility] Other Start: 11-25-2022 Telephone encounter Delonte Olivo [facility] Start: 11-01-2022 End: 11-01-2022 ambulatory Delonte Olivo Other [facility] Other Start: 11-01-2022 Encounter for genera l adult medical examination without abnormal findings Delonte Olivo [facility] Start: 11-01-2022 Patient encounter procedure Delonte Olivo [facility] Start: 11-01-2022 Periodic preventive med est patient 40-64yrs Delonte Olivo [facility] Start: 10-18-2022 End: 10-18-2022 ambulatory Bonny Raymundo Other [facility] Other Start: 10-18-2022 Telephone encounter Bonny PANTOJA [facility] Start: 10-07-2022 End: 10-07-2022 Admission to same day surgery center DO Delonte Olivo Work Phone: [facility] Start: 10-07-2022 End: 10-07-2022 ambulatory DO Delonte Olivo Work Phone: [facility] Work Phone: Start: 07-30-2022 End: 07-31-[address] NONE LISTED REQUEST Facility:[facility] Start: 07-12-2022 ambulatory Malik MOLINA Facility : [facility] Start: 06-04-2022 End: 06-05-[address] DELONTE OLIVO Facility:[facility] Start: 05-19-2022 End: 05-19-2022 ambulatory Bonny Raymundo Other [facility] Other Start: 05-19-2022 Office outpatient visit 25 minutes Bonny Raymundo [facility] Start: 05-01-2022 End: 05-02-[address] DELONTE OLIVO Facility:[facility] Start: 03-15-2022 End: 03-16-[address] DELONTE OLIVO Facility:[facility] Start: 03-14-2022 End: 03-15-[address] NONE LISTED REQUEST Facility: Start: 02-26-2022 End: 02-27-[address] DELONTE OLIVO Facility:[facility] Start: 09-07-2021 Adult health examination Bonny Raymundo Other [facility] Other Start: 08-12-2021 End: 08-12-2021 ambulatory Bonny Sr Other [facility] Other Start: 08-12-2021 Office outpatient visit 15 minutes Bonny Sr [facility] Procedures Date Procedure Procedure Detail Performing Clinician Start: 06-05-2023 Plain X-ray of left hip DO Delonte Olivo Work Phone: Start: 02-21-[address] RAYA BERRY ARGYLE Comment on above: Performed By: #### P SASC #### [facility] [address] [address] [address] Rena Barone Start: 10-07-2022 Colonoscopy DO Anjali Olivo Work Phone: Start: 02-26-[address] DOS SANTOS [place] Comment on above: Performed By: #### L IPID, T4, TSH, CMP #### [facility] [address] [address] [address] Rena Barone Start: 05-20-2016 General examination of patient Bonny Raymundo Other Start: 01-04-2016 Screening for malign ant neoplasm of colon Bonny Raymundo Other Plan of Treatment Date Care Activity Detail Author Start: 12-15-2024 Patient referral [facility] Work Phone: Start: 10-07-2022 [facility] Patient Education Colon Polyps [facility] Work Phone: Patient referral [facility] Work Phone: [facility] Immunizations Immunization Date Immunization Notes Care Provider Fa cili 08-19-2022 COVID-19 Pfizer (bivalent) Bonny Raymundo Other [facility] 08-19-2022 COVID-19 Pfizer (Pediatric) Bonny Raymundo Other [facility] 08-19-2022 influenza virus vaccine, split virus (incl. purified surface antigen) Bonny Raymundo Other [facility] Other 08-19-2022 influenza virus vaccine, unspecified formulation [facility] 08-19-2022 influenza, injectabl e, quadrivalent, preservative free Bonny Raymundo Other [facility] 02-09-2022 COVID-19 Pfizer Bonny Raymundo Other [facility] 02-09-2022 COVID-19 Vaccine Pfi zer - Documentation Purposes Only Bonny Raymundo Other [facility] 08-06-2021 COVID-19 Vaccine Pfi zer - Documentation Purposes Only Bonny Raymundo Other [facility] 08-06-2021 influenza virus vaccine, split virus (incl. purified surface antigen) Bonny Raymundo Other [facility] Other 08-06-2021 influenza virus vaccine, unspecified formulation [facility] 01-20-2021 COVID-19 mRNA, Comirnaty ([employer]) DO [facility] Work Phone: [facility] 12-30-2020 COVID-19 mRNA, Comirnaty ([employer]) DO [facility] Work Phone: [facility] 07-26-2020 influenza virus vaccine, split virus (incl. purified surface antigen) Bonny Raymundo Other [facility] Other 07-26-2020 influenza virus vaccine, unspecified formulation [facility] 09-06-2017 tetanus and diphther ia toxoids, adsorbed, preservative free, for adult use (5 Lf of tetanus toxoid and 2 Lf of diphtheria toxoid) Bonny Raymundo Other [facility] Payers Date Payer Category Payer Medicare [id number] 2024 Medicare [id number] 2024 Unknown [id number] 1959 Unknown [id number] 2.16.8 [id number] 1959 Unknown [id number] 2.16.84 [id number] 1959 Unknown [id number] 2.16.84 [id number] 1959 Unknown [id number] 2.16.84 [id number] 1959 Unknown [id number] 2.16.84 [id number] 1959 Unknown [id number] 2.16.84 [id number] 1959 Self-pay [id number] 1959 Self-pay [id number] 1960 Unknown [id number] 2. [id number] Medicare Medicare [id number] Unknown [id number] 2.16.84 [id number] Unknown [id number] 2.16.84 [id number] Unknown [id number] 2.16.84 [id number] Unknown [id number] 2.16.84 [id number] Unknown [id number] 2.16.84 [id number] Unknown [id number] 2.16.84 [id number] Unknown [id number] 2.16.8 [id number] Unknown [id number] 2.16.[id number] [facility] Health Claims [id number] Social History Date Type Detail Facility Sex Assigned At [facility] Other Start: 10-07-2022 End: 10-07-2022 Tobacco smoking status NHIS Current some day smoker [facility] Start: 1960 Sex Assigned At Male F [facility] Start: 12-18-2023 End: 12-18-2023 Tobacco smoking status NHIS Ex-smoker (finding) [facility] Start: 11-12-2024 End: 12-15-2024 Sex Male (finding) [facility] Goals Date Patient Goal Desired Activity /State Clinical Notes 08-12-2021 to 12-15-2024 Note Date & Type Note Facility 12-15-2024 Hospital Discharg e instructions Ambulatory OrdersReferral to ENT Time Frame: 12/15/24, Location: None Selected [facility] Work Phone: 11-30-2024 Note Patient here for fol low up DCCV performed on 10/27/[address] Fatima. States he went back into afib about 1 week s/p procedure. Denies chest pain, lightheadedness/syncope, and bleeding on Xarelto. SANTANA remains unchanged. Review of Systems Cardiovascular: Positive for dyspnea on exertion, irregular heartbeat and palpitations. All other systems reviewed and are negative. [facility] 11-30-2024 Note Cardiovascular Medic [facility] SUBJECTIVE Chief Complaint Patient presents with Atrial Fibrillation Salomón Rush is a 64 y.o. male here for follow-up after his recent a.fib ablation. HPI PMHx: a.fib, anemia, type 2 diabetes on insulin, gout, hypertension, ELENITA, obesity, hyperlipidemia 11/30/2024 Since last seen, he underwent a DCCV. He was successfully converted to NSR. He reports feeling like he went back into a.fib about 1 week after his cardioversion. He has intermittent palpitations. Sometimes he wakes up with racing HR's. He will also feel faster palpitations with heavier exertion. He has SANTANA. He feels better when he is in normal rhythm. Denies CP, borthopnea, PND, dizziness/LH, palpitations. Patient Active Problem List Diagnosis Gout Hyperlipidemia Longstanding persistent atrial fibrillation (CMS/HCC) ELENITA (obstructive sleep apnea) Hypertension Type 2 diabetes mellitus (CMS/HCC) Paroxysmal atrial fibrillation (CMS/HCC) History of cardioversion Obesity Type 2 diabetes mellitus with hyperglycemia (CMS/HCC) Chronic venous insufficiency of lower extremity Persistent atrial fibrillation (CMS/HCC) LUIS FELIPE (acute kidney injury) ([facility]) Anemia Past Medical History: Diagnosis Date Abnormal ECG Afib ([facility]/HCC) Arrhythmia Arthritis Atrial fibrillation ([facility]/HCC) Diabetes mellitus ([facility]/HCC) type 2 Hyperlipidemia Hypertension Joint pain Severe [...] No Known Allergies ROS Cardiovascular: Positive for dyspnea on exertion, irregular heartbeat and palpitations. All other systems reviewed and are negative. OBJECTIVE Visit Vitals BP 132/80 (BP Location: Left arm, Patient Position: Sitting) Pulse 84 Ht 1.778 m (5' 10 ) Wt (!) 147 kg (323 lb) SpO2 97% BMI 46.35 kg/m??? Smoking Status Some Days BSA 2.69 m??? Medications: Current Outpatient Medications: allopurinol (Zyloprim) [...] mouth two times daily., Disp: , Rfl: cyanocobalamin (Vitamin B-12) 1,000 mcg tablet, Take 1,000 mcg by mouth in the morning., Disp: , Rfl: furosemide (Lasix) 40 mg tablet, Take 1 tablet by mouth every other day. Pt taking every other day, Disp: , Rfl: insulin glargine-yfgn 100 unit/mL (3 mL) insulin pen, INJECT 50 UNITS SUBCUTANEOUSLY ONCE A DAY, Disp: , Rfl: lisinopril 40 mg tablet, Take 40 mg by mouth in the morning., Disp: , Rfl: potassium chloride CR (Klor-Con M20) 20 mEq [...] Normal pulses. Heart sounds: Normal heart sounds. Pulmonary: Effort: Pulmonary effort is normal. Breath sounds: Normal breath sounds. Abdominal: General: Bowel sounds are normal. Palpations: Abdomen is soft. Musculoskeletal: General: Normal range of motion. Cervical back: Neck supple. Right lower leg: Edema present. Left lower leg: Edema present. Comments: Trace bilat edema Skin: General: Skin is warm and dry. Neurological: General: No focal deficit present. Mental Status: He is alert and oriented to person, place, and time. Psychiatric: Mood and Affect: Mood normal. Behavior: Behavior normal. Thought Content: Thought content normal. Judgment: Judgment normal. Labs: Admission on 10/27/2024, Discharged on 10/27/2024 Component Date Value Ref Range Status Ventricular Rate 10/27/2024 101 BPM Final QRS DURATIO (more content not included)... [facility] 11-10-2024 Note Subjective Patient ID: Salomón Rush is a 63 y.o. male who presents for New Patient (Blood clot/blockage-Ref Dr Fatima -he wants pt seen after ablation/Testings 09/10/24). HPI Review of Systems Constitutional: Negative for activity change, appetite change, chills, diaphoresis, fatigue, fever and unexpected weight change. HENT: Negative for congestion, dental problem, drooling, ear discharge, ear pain, facial swelling, hearing loss, mouth sores, nosebleeds, postnasal drip, rhinorrhea, sinus pressure, sinus pain, sneezing, sore throat, tinnitus, trouble swallowing and voice change. Eyes: Negative for photophobia, pain, discharge, redness, itching and visual disturbance. Respiratory: Negative for apnea, cough, choking, chest tightness, shortness of breath, wheezing and stridor. Cardiovascular: Positive for palpitations. Negative for chest pain and leg swelling. Gastrointestinal: Negative for abdominal distention, abdominal pain, anal bleeding, blood in stool, constipation, diarrhea, nausea, rectal pain and vomiting. Endocrine: Negative for cold intolerance, heat intolerance, polydipsia, polyphagia and polyuria. Genitourinary: Negative for decreased urine volume, difficulty urinating, dysuria, enuresis, flank pain, frequency, genital sores, hematuria, penile discharge, penile pain, penile swelling, scrotal swelling, testicular pain and urgency. Musculoskeletal: Negative for arthralgias, back pain, gait problem, joint swelling, myalgias and neck pain. Skin: Negative for color change, pallor, rash and wound. Allergic/Immunologic: Negative for environmental allergies, food allergies and immunocompromised state. Neurological: Positive for numbness. Negative for dizziness, tremors, seizures, syncope, facial asymmetry, speech difficulty, weakness, light-headedness and headaches. Both toes Hematological: Negative for adenopathy. Does not bruise/bleed easily. Psychiatric/Behavioral: Negative for agitation, behavioral problems, confusion, decreased concentration, dysphoric mood, hallucinations, self-injury, sleep disturbance and suicidal ideas. The patient is not nervous/anxious and is not hyperactive. Objective Visit Vitals BP 137/87 (BP Location: Left arm, Patient Position: Sitting) Pulse 101 Temp 36.5 ???C (97.7 ???F) (Temporal) Physical Exam Assessment/Plan No diagnosis found. No orders of the defined types were placed in this encounter. No results found for this or any previous visit (from the past 36 hour(s)). No follow-ups on file. [facility] 11-10-2024 Note Subjective Patient ID: Salomón Rush is a 63 y.o. male who presents for New Patient (Blood clot/blockage-Ref Dr Fatima -he wants pt seen after ablation/Last seen as inpatient 09/12/24 w resident/Testings 09/10/24). HPI Salomón Rush is a 63 y.o. White male with PMH of A-fib on Xarelto and amiodarone, mild to moderate MR, HTN, insulin-dependent T2D, gout, ELENITA, obesity and HLD who presented to the hospital for elective A-fib ablation which was done in Aug with subsequent left groin hematoma negative for PSA on CT and subsequent DUS. Was found to have possible occlusion R SFA at that time with ABIs that showed no significant dz with good waveforms to DP, some small vessel disease as evidence by decreased TBI. I son statin and xarelto MARIA FERNANDA 08/2024: Result Text Procedure: The pressures in the lower extremities as well as PVR's were evaluated at different segments including the thigh area, below the knee, ankle and the great toe using 3 cuff method. The Doppler waveform was evaluated at the dorsal pedis and posterior tibial arteries. Procedure: The pressures in the lower extremities as well as PVR's were evaluated at different segments including the thigh area, below the knee, ankle and the great toe using 3 cuff method. The Doppler waveform was evaluated at the dorsal pedis and posterior tibial arteries. IMPRESSION: Right: Essentially normal PVR waveform contour at the thigh and below. Multiphasic with diastolic flow reversal PT and DP CW Doppler waveforms. No evidence of significant arterial occlusive disease with a normal ankle brachial index (1.0-1.29). DP MARIA FERNANDA is 1.21; PT MARIA FERNANDA is 1.13. Normal TBI (>0.75). TBI is 0.83. Left: Non visualization of thigh PVR. Essentially normal PVR waveform contour at the calf. Mildly abnormal PVR waveform contour at the ankle. Multiphasic with diastolic flow reversal PT and DP CW Doppler waveforms. Audible PT arterial Doppler signals despite occlusive cuff pressures exceeding >250mmHg. Borderline normal MARIA FERNANDA (0.90-0.99). DP MARIA FERNANDA is 0.97. Moderate disease TBI (0.31-0.49). TBI is 0.47. Right: Essentially normal PVR waveform contour at the thigh and below. Multiphasic with diastolic flow reversal PT and DP CW Doppler waveforms. No evidence of significant arterial occlusive disease with a normal ankle brachial index (1.0-1.29). DP MARIA FERNANDA is 1.21; PT MARIA FERNANDA is 1.13. Normal TBI (>0.75). TBI is 0.83. Left: Non visualization of thigh PVR. Essentially normal PVR waveform contour at the calf. Mildly abnormal PVR waveform contour at the ankle. Multiphasic with diastolic flow reversal PT and DP CW Doppler waveforms. Audible PT arterial Doppler signals despite occlusive cuff pressures exceeding >250mmHg. Borderline normal MARIA FERNANDA (0.90-0.99). DP MARIA FERNANDA is 0.97. Moderate disease TBI (0.31-0.49). TBI is 0.47. Review of Systems Constitutional: Negative for activity change, appetite change, chills, diaphoresis, fatigue, fever and unexpected weight change. HENT: Negative for congestion, dental problem, drooling, ear discharge, ear pain, facial swelling, hearing loss, mouth sores, nosebleeds, postnasal drip, rhinorrhea, sinus pressure, sinus pain, sneezing, sore throat, tinnitus, trouble swallowing and voice change. Eyes: Negative for photophobia, pain, discharge, redness, itching and visual disturbance. Respiratory: Negative for apnea, cough, choking, chest tightness, shortness of breath, wheezing and stridor. Cardiovascular: Positive for palpitations. Negative for chest pain and leg swelling. Gastrointestinal: Negative for abdominal distention, abdominal pain, anal bleeding, blood in stool, constipation, diarrhea, nausea, rectal pain and vomiting. Endocrine: Negative for cold intolerance, heat intolerance, polydipsia, polyphagia and polyuria. Genitourinary: Negative for decreased urine volume, difficulty urinating, dysuria, enuresis, flank pain, frequency, genital sores, hematuria, penile discharge, penile pain, penile swelling, scrotal swelling, testicular pain and urgency. Musculoskeletal: Negative for arthralgias, back pain, gait problem, joint swelling, myalgias and neck pain. Skin: Negative for color change, pallor, rash and wound. Allergic/Immunologic: Negative for environmental allergies, food allergies and immunocompromised state. Neurological: Positive for numbness. Negative for dizziness, tremors, seizures, syncope, facial asymmetry, speech difficulty, weakness, light-headedness and headaches. Both toes Hematological: Negative for adenopathy. Does not bruise/bleed easily. Psychiatric/Behavioral: Negative for agitation, behavioral problems, confusion, decreased concentration, dysphoric mood, hallucinations, self-injury, sleep disturbance and suicidal ideas. The patient is not nervous/anxious and is not hyperactive. Objective Visit Vitals BP 137/87 (BP Location: Left arm, Patient Position: Sitting) Pulse 101 Temp 36.5 ???C (97.7 ???F (more content not included)... [facility] 10-27-2024 Note Patient: Salomón Ramon ock Procedure Information Date/Time: 10/27/24 1200 Procedure: Cardioversion - PC APPROVED Location: [facility] DIRECTOR MACHINE HOLDING ROOM / [facility] (Cath) Providers: Felipe Fatima MD Clinical information reviewed: Tobacco Allergies Med Hx Surg Hx Fam Hx Soc Hx Physical Exam Airway Mallampati: II TM distance: >3 FB Neck ROM: full Cardiovascular Dental Pulmonary Abdominal Anesthesia Plan ASA 3 CSE Anesthetic plan and risks discussed with patient. Use of blood products discussed with patient who. Additional Equipment Requests [facility] 09-29-2024 Note Cardiovascular Medic [facility] SUBJECTIVE Chief Complaint Patient presents with [...] Arrhythmia Arthritis Atrial fibrillation (CMS/HCC) Diabetes mellitus ([facility]/HCC) type 2 Hyperlipidemia Hypertension Joint pain Severe [...] Skin is w (more content not included)... [facility] 09-29-2024 Note Patient here for fol low up afib ablation. He developed hematoma s/p ablation and had vascular imaging the next day. He then presented to [facility] ED on 09/17 for worsening hematoma. [...] systems reviewed and are negative. [facility] 09-20-2024 Evaluation note Diagnosis Onset Date Resolution Acute blood loss anemia acute D ecember 2023 2:22pm Atrial fibrillation acute Decem 2023 2:22pm Hypertension acute September 2:22pm Postoperative hemorrhage involving circulatory system following cardiac acute Decembe r 2023 2:22pm Type 2 diabetes mellitus with hyperglycemia acute September 20, 2024 2:22pm Acute blood loss anemia acute J anuary 2024 8:49am Atrial fibrillation acute 2024 8:49am Hypertension acute October 8:49am Postoperative hemorrhage involving circulatory system following cardiac acute November 12, 2024 8:49am Screening PSA (prostate specific antigen) acute November 12, 2024 8:49am Type 2 diabetes mellitus with hyperglycemia acute November 12, 2024 8:49am [facility] Work Phone: 1(813) 761-511212-02-2024 Evaluation note* Diagnosis Onset Date Resolution Status Admit Date Acute blood loss anemia acute D ec2023 2:22pm Atrial fibrillation acute Decem 2023 2:22pm Hypertension acute September 2:22pm Postoperative hemorrhage involving circulatory system following cardiac acute September 20, 2024 2:22pm Type 2 diabetes mellitus wit h hyperglycemia acute September 20 2:22pm Atrial fibrillation acute Octua 2024 8:49am Chronic kidney disease acute Ja nuary 2024 8:49am Hypertension acute October 8:49am Postoperative hemorrhage involving circulatory system following cardiac acute November 12, 2024 8:49am Screening PSA (prostate specific antigen) acute November 12, 2024 8:49am Type 2 diabetes mellitus wit h hyperglycemia acute November 12 8:49am Welcome to Medicare preventive visit noneactive November 12, 8:49am [facility] Work Phone: 1(306) 102-554512-02-2024 Evaluation note* Diagnosis Onset Date Resolution Status Admit Date Acute blood loss anemia acute D ecember 2023 2:22pm Atrial fibrillation acute Decem dunia 2023 2:22pm Hypertension acute September 2:22pm Postoperative hemorrhage involving circulatory system following cardiac acute September 20, 2024 2:22pm Type 2 diabetes mellitus wit h hyperglycemia acute September 20 2:22pm Atrial fibrillation acute Janua ry 2024 8:49am Chronic kidney disease acute Ja nuary 2024 8:49am Hypertension acute October 8:49am Postoperative hemorrhage involving circulatory system following cardiac acute November 12, 2024 8:49am Screening PSA (prostate specific antigen) acute November 12, 2024 8:49am Type 2 diabetes mellitus wit h hyperglycemia acute November 12 8:49am Welcome to Medicare preventive visit noneactive November 12, 025 8:49am B12 deficiency acute November 262024 8:50am Obesity acute November 26, 2024 8:50am Decreased hearing of both ears noneactive November 26 8:50am Impacted cerumen of both ears noneac tive November 26, 2024 8:50am [facility] Work Phone: 1(884) 418-330111-24-2024 NotePatient: Salomón Rush Procedure Summary Date: 09/09/24 Room / Location: [facility] DIRECTOR MACHINE 1 / [facility] (Cath) Anesthesia Start: 1235 Anesthesia [...] per surgeon request over 10 mins from 14:30-14:40[facility] Note Hospital Medicine Discharge Summary Final Discharge [...] 09/29/2024 11:00 AM Naresh Clark NP DUDLEY Pérez Your medication list START taking these medications [...] Medications These medications were sent to [facility] - [address] [place] [address] [address] [facility] [place] [address], [facility] [address] famotidine 20 mg tablet omeprazole [address] bryson Lorenzana has No Known Allergies. Disposition: Home or [...] was 60 minutes. Signed Shawn Garcia MD [facility] 09/12/2024 10:47 AM CC: Geovani [facility]11-24-2024 NoteCardiology Inpatient Progress Note Reason for consult: thigh [...] Value Ventricular Rate 66 Atrial Rate 102 NE Interval 176 QRS DURATION 102 QT Interval 484 QTC CALCULATION(BAZETT) 507 P Wolbach 68 R-Wolbach 92 T Wave Wolbach 64 Impression Sinus tachycardia with 2nd degree [...] ablation and confirmed block (more content not included)...[facility]11-24-2024 Note Subjective Patient with no acute overnight [...] Value Ventricular Rate 66 Atrial Rate 102 NE Interval 176 QRS DURATION 102 QT Interval 484 QTC CALCULATION(BAZETT) 507 P Wolbach 68 R-Wolbach 92 T Wave Wolbach 64 Impression Sinus tachycardia with 2nd degree A-V block (Mobitz II) Right axis deviation Prolonged QT Abnormal ECG When compared with ECG of 09-SEP-2024 11:27, Sinus rhythm has replaced Atrial fibrillation Confirmed by Felipe Fatima (80) on 09/10/2024 8:48:31 AM Nutrition Screen Assessment Assessment & Plan Paroxysmal atrial fibrillation (CMS/HCC) Persistent atrial fibrillation (CMS/HCC) 63 yo/ M with recent cardiac cath through left MINER PICK access, with post-op hematoma, no concern for [...] care of this patient Gabriela Abel MD [facility] NoteHospital Medicine Daily Progress Note - 09/11/2024 11:08 AM; Room: [address] [place] [address] Admission: 09/09/2024 9:55 AM; Length of stay: 2 days THE HOSPITALIST TEAM PREFERS TO USE [employer] FOR NON-URGENT COMMUNICATION 7AM-7PM. IF I DO NOT RESPOND WITHIN 20 MINUTES OR URGENT MATTERS, PLEASE CALL THROUGH THE INDUSTRIAL CONTROLLER. FROM 7PM-7AM, PLEASE PAGE [phone](COVR). Code Status: Full Code Barriers to Discharge: [...] , FREET4 , CORTISOL , FEV1 , XRT5WLI , DLCO , RVSP , HDL , LDL No results found for: [id number] , IRON , TIBC , C3 , [...] occlusion. Reconstitution of monophas (more content not included)...[facility]11-23-2024 NoteSubjective Patient with no acute overnight events. Pain [...] Value Ventricular Rate 66 Atrial Rate 102 NE Interval 176 QRS DURATION 102 QT Interval 484 QTC CALCULATION(BAZETT) 507 P Wolbach 68 R-Wolbach 92 T Wave Wolbach 64 Impression Sinus tachycardia with 2nd degree A-V block (Mobitz II) Right axis deviation Prolonged QT Abnormal ECG When compared with ECG of 09-SEP-2024 11:27, Sinus rhythm has replaced Atrial fibrillation Confirmed by Felipe Fatima (80) on 09/10/2024 8:48:31 AM Nutrition Screen Assessment Assessment & Plan Paroxysmal atrial fibrillation (CMS/HCC) Persistent atrial fibrillation (CMS/HCC) 63 yo/ M with recent cardiac cath through left MINER PICK access, with post-op hematoma, no concern for [...] are as above. I agree with the findings.[facility]11-23-2024 Note Attestation signed by Donal Sainz MD at [...] personal documentation from me. Donal Sainz MD Cardiology Progress Note Subjective Subjective: Patient seen [...] Felipe Fatima MD, 40 mg at 09/10/24 100 HYDROmorphone (Dilaudid) injection 0.5 mg, 0.5 mg, intravenous, q3h PRN, Elizabeth Santos, 0.5 mg at 09/10/24 154 insulin glargine (Lantus) injection vial 15 Units, [...] Felipe Fatima MD, 20 mEq at 09/09/24 1817 pravastatin (Pravachol) tablet 40 mg, 40 mg, oral, Nightly, Felipe Fatima MD, 40 mg at 09/10/24 215 [Held by provider] rivaroxaban (Xarelto) tablet 20 [...] Value Ventricular Rate 66 Atrial Rate 102 NE Interval 176 QRS DURATION 102 QT Interval 484 QTC CALCULATION(BAZETT) 507 P Wolbach 68 R-Wolbach 92 T Wave Wolbach 64 Impression Sinus tachycardia with 2nd degree A-V block (Mobitz II) Right axis deviation Prolonged QT Abnormal ECG When compared with ECG of 09-SEP-2024 11:27, Sinus rhythm has repla (more content not included)...[facility] 09-10-2024 Note09/10/24 1522 Admission Assessment Questions Verify insurance with patient Yes Do you understand medical disease or what brought you into the hospital? Yes Who is your current PCP? Delonte Olivo, DO Can I schedule a follow up appointment for you at the time of discharge? No (patient stated he will make his own appointment) Do you understand why you are taking your current medications? Yes Are you taking your medications as prescribed? Yes Did patient provide teach back? No Pharmacy Bedside Delivery Status Interested Does the patient have a case loader operator assigned to them through their insurance? No [...] for patient to discharge home when medically ready.[facility]11-22-2024 NoteHospital Medicine Daily Progress Note - 09/10/2024 12:21 PM; Room: [address] [place] [address] Admission: 09/09/2024 9:55 AM; Length of stay: 1 days THE HOSPITALIST TEAM PREFERS TO USE [employer] CHAT FOR NON-URGENT COMMUNICATION 7AM-7PM. IF I DO NOT RESPOND WITHIN 20 MINUTES OR URGENT MATTERS, PLEASE CALL THROUGH THE INDUSTRIAL CONTROLLER. FROM 7PM-7AM, PLEASE PAGE [phone](COVR). Code Status: Full Code Barriers to Discharge: [...] currently in sinus rhythm continue amiodarone thank Malurelcynthia on hold 2. left groin hematoma, iatrogenic [...] Results from last 7 days Lab Units 09/09/242 09/09/24 1558 09/09/24 1115 POCT GLUCOSE mg/dL 162* 146* 126* Historical Values: (Includes values prior to this admission) No results found for: PREALBUMIN , TSH , T3FREE , FREET4 , CORTISOL , FEV1 , VNY4DLQ , DLCO , RVSP , HDL , LDL No results found for: [id number] , IRON , TIBC , C3 , [...] arter (more content not included)... [facility]11-21-2024 Note Attestation signed by Felipe Fatima MD at 09/13/2024 2:02 PM Fellow discussed with me. I was called by nursing staff regarding [...] and findings discussed with the vascular surgery early intervention specialist and attending Dr Mcdonald. Plan discussed with the patient and nursing staff. Plan discussed with the attending physician, Dr. Fatima.[facility]11-21-2024 NoteATRIAL FIBRILLATION ABLATION PROCEDURE NOTE DATE OF PROCEDURE: 09/09/2024 PERFORMING PHYSICIAN: Dr. Felipe Fatima WIRE STRIPPING MACHINE OPERATOR: YOSELYN CONSENT: Patient NAME OF THE PROCEDURE: [...] any shortness of breath, chest pain, fatigue. [id number] at least 2 for hypertension, DM 2, [...] patient converted to SR. (more content not included)...[facility]11-21-2024 NoteAirway Date/Time: 09/09/2024 12:58 PM Urgency: elective Airway not difficult General Information and Staff Patient location during procedure: OR Anesthesiologist: Wil Cook MD Resident/STUDIO ENGINEER/CAA: Zheng Reaves MD Performed: resident/STUDIO ENGINEER/CAA Indications and Patient Condition Indications for airway [...] approach: 1 Number of other approaches attempted: 0[facility] 09-09-2024 NotePatient: Salomón Rush Procedure Information Date/Time: 09/09/241199 Procedure: Ablation a-fib paroxysmal - pc approved Location: [facility] DIRECTOR MACHINE 1 EP / [facility] (Cath) Providers: Felipe Fatima [...] products. Plan discussed with resident. Additional [facility]24 Note [place] Electrophysiology Consult Note Reason for visit: persistent AF 07/27/24 Pt is here for a three month follow up. Pt denies chest pain, sob, dizziness. Patient underwent cardioversion on 03/24/2024 and was noted to have recurrence of atrial fibrillation when seen on 04/21/2024 by Mirella Rivera. He was still taking amiodarone at that [...] any shortness of breath, chest pain, fatigue. [id number] at least 2 for hypertension, DM 2, [...] on file Intimate Partner Violence: Unknown (12/11/2023) [place] Safety & Environment Fear of Current or [...] no (more content not included)... [facility]07-03-2024 [id number]= 2 points- HTN and DM Continue xarelto anticoagulation - denied any bleeding tendencies Rate controlled [facility] Note Currently pt is doing well post Cardioversion Currently in A fib and rate controlled - Dr Fatima notified and d/w pt about possible A fib ablationUnSalem City Hospital07-03-2024 NotePatient here for follow up cardioversion performed on 03/24/[address] Fatima. Still has intermittent palpitations but says they are less frequent since cardioversion. He continues to deny chest pain, SOB, lightheadedness/syncope, and bleeding on Xarelto. Review of Systems Cardiovascular: Positive for palpitations (less frequent). Musculoskeletal: Positive for arthritis, back pain and joint pain. All other systems reviewed and are negative.[facility] 04-21-2024 NoteUTP CARDIOLOGY PROGRESS NOTE HPI: Salomón Rush is a 63 [...] any shortness of breath, chest pain, fatigue. [id number] at least 2 for hypertension, DM 2, [...] 100 QT Interval 406 QTC CALCULATION(BAZETT) 447 R-Wolbach 49 T Wave Wolbach 38 Impression Atrial fibrillation Abnormal ECG No previous ECGs available Echo: 09/2023 tte Assessment/Plan: History (more content not included)...[facility] 03-24-2024 NoteDIRECT CARDIOVERSION PROCEDURE NOTE Date: 03/24/2024. Type of [...] any shortness of breath, chest pain, fatigue. [id number] at least 2 for hypertension, DM 2, [...] and consider ablation. Felipe Fatima MD Cardiac ElectrophysiologyUnSalem City Hospital06-05-2024 Note Patient: Salomón Rush Procedure Information Date/Time: 03/24/24829 Procedure: Cardioversion - TO BE DONE IN March Location: [facility] DIRECTOR MACHINE HOLDING ROOM / [facility] (Cath) Providers: Felipe Fatima MD Clinical information reviewed: Tobacco Allergies Meds Med Hx Surg Hx Fam Hx Soc Hx Physical Exam Airway Mallampati: II TM distance: >3 FB Neck ROM: full Cardiovascular Dental Pulmonary Abdominal Anesthesia Plan ASA 2 CSE Anesthetic plan and risks discussed with patient. Use of blood products discussed with patient who. Additional Equipment RequestsUnSalem City Hospital04-02-2024 Note [place] Electrophysiology Consult Note Reason for visit: persistent [...] any shortness of breath, chest pain, fatigue. [id number] at least 2 for hypertension, DM 2, [...] non tender Musculoskeletal In (more content not included)...[facility]02-28-2024 NoteUT Electrophysiology Consult Note Reason for visit: new [...] stopped on flecainide given having breakthrough episodes. [id number] at least 2 for hypertension, DM 2, [...] on file Intimate Partner Violence: Unknown (12/11/2023) [place] Safety [place] Fear of Current or [...] Eyes Lids and Conju (more content not included)...[facility] 12-17-2023 NoteNew patient here to establish care. Ref from Dr. Olivo for hx of afib. He used to see [facility] in [place], and hasn't seen them in a few [...] pain. All other systems reviewed and are negative.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 No bleeding complications Oct, Primary hypertension (ICD-10 - I10) This patient is instructed to consume a healthy, low-fat, low-salt diet. They are also encouraged to continue exercise to achieve/maintain a normal BMI. Oct, Obstructive sleep apnea (ICD-10 - G47.33) This patient is aware of the benefits associated with ELENITA: With continued use, the patient reduces the risk for PR, CVA, HTN, cardiac dysrhythmias and sudden cardiac [...] risk for cerebrovascular and cardiovascular disease. 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 RVSP normal. 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) [facility] Other 10-02-2023 Evaluation note* Encounter Date Diagnosis Assessment Notes Treatment Notes Treatment Clinical Notes Jul, Type 2 diabetes mellitus with hyperglycemia (ICD-10 - E11.65) [facility] Other 09-22-2023 Evaluation note* Encounter Date Diagnosis Assessment Notes Treatment Notes Treatment Clinical Notes Jun, Type 2 diabetes mellitus with hyperglycemia (ICD-10 - E11.65) [facility] Other 08-17-2023 Evaluation note* Encounter Date Diagnosis [...] understanding and is agreeable with treatment plan [facility] Other 08-17-2023 Evaluation note* Encounter Date Diagnosis Assessment Notes Treatment Notes Treatment Clinical Notes May, Left hip pain (ICD-10 - M25.552) [facility] Other 05-02-2023 Evaluation note* Encounter Date Diagnosis Assessment Notes Treatment Notes Treatment Clinical Notes February, Type 2 diabetes mellitus with hyperglycemia, unspecified whether java j2ee lead insulin use (ICD-10 - E11.65) [facility] Other 04-28-2023 Evaluation note* Encounter Date Diagnosis [...] treatment plan. Patient left in stable condition. [facility] Other 04-12-2023 Evaluation note* Encounter Date Diagnosis Assessment Notes Treatment Notes Treatment Clinical Notes Jan, Type 2 diabetes mellitus with hyperglycemia, unspecified whether long-term insulin use (ICD-10 - E11.65) [facility] Other 04-03-2023 Evaluation note* Encounter Date Diagnosis Assessment Notes Treatment Notes Treatment Clinical Notes Jan, Type 2 diabetes mellitus with hyperglycemia (ICD-10 - E11.65) [facility] Other 03-23-2023 Evaluation note* Encounter Date Diagnosis [...] use, the patient reduces the risk for PR, CVA, HTN, cardiac dysrhythmias and sudden cardiac [...] are reviewed at the office visit. 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) [...] Monitor for rash of HZV Stretching exercises [facility] Other 03-07-2023 Evaluation note* Encounter Date Diagnosis Assessment Notes Treatment Notes Treatment Clinical Notes Dec, Type 2 diabetes mellitus with hyperglycemia, without long-term current use of insulin (ICD-10 - E11.65) [facility] Other 02-06-2023 Evaluation note* Encounter Date Diagnosis Assessment Notes Treatment Notes Treatment Clinical Notes Nov, Type 2 diabetes mellitus with hyperglycemia, without long-term current use of insulin (ICD-10 - E11.65) [facility] Other 01-13-2023 Evaluation note* Encounter Date Diagnosis [...] use, the patient reduces the risk for PR, CVA, HTN, cardiac dysrhythmias and sudden cardiac [...] 2 diabetes mellitus with hyperglycemia, unspecified whether long-term insulin use (ICD-10 - E11.65) This patient [...] use, the patient reduces the risk for PR, CVA, HTN, cardiac dysrhythmias and sudden cardiac [...] Oct, Annual physical exam (ICD-10 - Z00.00) [facility] Other [id number] [facility] Encounter Date Diagnosis Assessment [...] treatment plan. Patient left in stable condition [facility] Other 10-24-2021 Evaluation note* Encounter Date Diagnosis [...] care instructions given in writting by [facility] Care At Home document [facility] Other Evaluation noteNo assessment information available [facility] Work Phone: Evalurqjni noteNo InformationNort [employer] Other Evaluation note* Diagnosis Onset Date Resolution Status Atrial fibrillation acute Chronic venous insufficiency of lower extremity acute Hypercholesterolemia acute Hypertension acute ELENITA (obstructive sleep apnea) acute Type 2 diabetes mellitus with hyperglycemia acute [facility] Work Phone: Evaluation note* Diagnosis Onset Date Resolution Status Anemia acute Atrial fibrillation acute Chronic venous insufficiency of lower extremity acute Hypercholesterolemia acute Hypertension acute Obesity acute ELENITA (obstructive sleep apnea) acute Type 2 diabetes mellitus with hyperglycemia acute [facility] Work Phone: History and physical note Author Deon Greene [facility] October 07, 2022 9:27am Note Date/Time October 07, 2022 9:27am [facility] [address] [place] [address] Gastroenterology H&P Signed Patient: Salomón Rush MR#: [id number] : 1960 Acct:[id number] Age/Sex: 61 / M Adm Date: 2 Loc: Room: Type: [facility] Attending Dr: Deno Greene MD Copies to: DO Deon Coronado [...] <Electronically signed by Deon Greene MD> 10/07/22926 [facility] Work Phone: Hisujlf general Narrative - Reported* Type Description Date Medical History hypertension Medical History Diabetes Medical History a. fib Surgical History rotator cuff repair Surgical History cataract Surgical History bilateral knee arthroscopy [facility] Other History general Narrative - Reported* Type Description Date Medical History Tubulovillous adenoma of colon Medical History Anemia Medical History Zoster with other complications Medical History Type 2 diabetes lisa itus with hyperglycemia, unspecified whether java j2ee lead insulin use Medical History shelter current use of insulin Medical History Acute [...] DECOMPRESSION 2002 Hospitalization History SEE SURGICAL HX [facility] Other Hospital Discharge instructions Additional Instructions DISCHARGE [...] Follow up with PCP. - Office number [phone].[facility] Work Phone: Reason for referral (narrative)* Reason *FU 11/28 Referral for persistent atrial fibrillation. Diagnosis 1 Chronic atrial fibri llation (I48.20) Referral Organization [facility] anya Referring Provider First Name Delonte Referring Provider Last Name Geovani Referring Provider Specialty Internal Ca kalani Referred Organization [facility] Referred Provider Felipe Fatima Referred Address [address] [place], [place],[address] Referred Provider Specialty Cardiology Referral Priority Routine [...] faxed Clinical Notes Include recent Echo f: [id number] [facility] Other Summary Purpose Family History No Family [...] 2 diabetes mellitus with hyperglycemia Chief Complaint Admit Date Amb Documentation September 14, 2024 8:46am [facility]:Cardiac September 20, 2024 2 :22pm Wellness-HIGH RISK November 12, 2024 8 :49am Reason for Visit Admit Date Acute blood loss anemia September 20 2:22pm Atrial fibrillation September 20, 2024 2 :22pm Hypertension September 20, 2024 2 :22pm Postoperative hemorrhage inv olving circulatory system following cardiac September 20, 2024 2:22pm Type 2 diabetes mellitus with hyperglyce ted September 20, 2024 2:22pm Acute blood loss anemia November 12 8:49am Atrial fibrillation November 12, 2024 8 :49am Hypertension November 12, 2024 8 :49am Postoperative hemorrhage inv olving circulatory system following cardiac November 12, 2024 8:49am Screening PSA (prostate specific antigen ) November 12, 2024 8:49am Type 2 diabetes mellitus with hyperglyce ted November 12, 2024 8:49am Chief Complaint Admit Date Amb Documentation September 14, 2024 8:46am [facility]:Cardiac September 20, 2024 2 :22pm Wellness-HIGH RISK November 12, 2024 8 :49am Ear Cleaning-HIGH RISK November 26 8:50am Reason for Visit Admit Date Acute blood loss anemia September 20 2:22pm Atrial fibrillation September 20, 2024 2 :22pm Hypertension September 20, 2024 2 :22pm Postoperative hemorrhage inv olving circulatory system following cardiac September 20, 2024 2:22pm Type 2 diabetes mellitus with hyperglyce ted September 20, 2024 2:22pm Atrial fibrillation November 12, 2024 8 :49am Chronic kidney disease November 12 8:49am Hypertension November 12, 2024 8 :49am Postoperative hemorrhage inv olving circulatory system following cardiac November 12, 2024 8:49am Screening PSA (prostate specific antigen ) November 12, 2024 8:49am Type 2 diabetes mellitus with hyperglyce ted November 12, 2024 8:49am Welcome to Medicare preventive visit Fahad koenig 2024 8:49am Chief Complaint Admit Date [facility]:Cardiac September 20, 2024 2 :22pm Wellness-HIGH RISK November 12, 2024 8 :49am Ear Cleaning-HIGH RISK November 26 8:50am Referral Order December 15, 2024 6:30pm Reason for Visit Admit Date Acute blood loss anemia September 20 2:22pm Atrial fibrillation September 20, 2024 2 :22pm Hypertension September 20, 2024 2 :22pm Postoperative hemorrhage inv olving circulatory system following cardiac September 20, 2024 2:22pm Type 2 diabetes mellitus with hyperglyce ted September 20, 2024 2:22pm Atrial fibrillation November 12, 2024 8 :49am Chronic kidney disease November 12 8:49am Hypertension November 12, 2024 8 :49am Postoperative hemorrhage inv olving circulatory system following cardiac November 12, 2024 8:49am Screening PSA (prostate specific antigen ) November 12, 2024 8:49am Type 2 diabetes mellitus with hyperglyce ted November 12, 2024 8:49am Welcome to Medicare preventive visit Fahad koenig 24th, 2025 8:49am B12 deficiency November 26, 2024 8 :50am Obesity November 26, 2024 8 :50am Decreased hearing of both ears November 26, 2024 8:50am Impacted cerumen of both ears November 262024 8:50am Additional Source Comments REASON FOR VISIT (unrecogniz ed section and content) #15 BLACK JEEP, HIARRHEA, NA USEA, NASAL CONGESTION [id number] JEEP, COUGH, SORE THROAT, POSITIVE HOME TESTNo InformationWELLNESSNo InformationDifferent MedicationOzempic increasePossible Pulled MusclerefillNo InformationOzempicchest/head coldmed refillHRHRLeft hip painWants on TodayNo InformationOzempicNo Information3 month Follow upPrescription ReminderEKG resultsNo InformationWELLNESSWELLNESS (unrecognized sect ion and content) No Status Records FoundNo Status Records FoundNo Status Records FoundNo Status Records FoundNo Status Records Found INFORMATION SOURCE (unrecogn ized section and content) DATE CREATED AUTHOR 07/22/2022 [facility] DATE CREATED AUTHOR AUTHOR'S ORGANIZ ATION 02/21/2023 [facility] DATE CREATED AUTHOR AUTHOR'S ORGANIZ ATION 10/30/2023 [facility] DATE CREATED AUTHOR AUTHOR'S ORGANIZ ATION 12/02/2024 [facility] DATE CREATED AUTHOR AUTHOR'S ORGANIZ ATION 12/30/2024 [facility] EPIC Care Teams (unrecognized sec tion and content) Team Status: Active Member Role Status Dates Delonte Olivo DO Primary Care Provider Active Team Status: Active Member Role Status Dates Delonte Olivo DO Primary Care Provide r, Attending Provider Active Start: December 18, 2023 Team Status: Inactive Member Role Status Dates Delonte Olivo DO Primary Care Provide r, Attending Provider Active Start: March 12, 2024 End: March 12, 2024 Team Status: Inactive Member Role Status Dates Delonte Olivo DO Primary Care Provider Active Deon Greene MD Attending Provider Active Team Status: Inactive Member Role Status Dates Delonte Olivo DO Primary Care Provider Active Bonny Raymundo APRN Attending Provider Active Team Status: Inactive Member Role Status Dates Delonte Olivo DO Primary Care Provider, Attending Pr arsh Active Team Status: Active Member Role Status Dates Delonte Olivo DO Primary Care Provide r, Attending Provider Active Start: June 23, 2024 Team Status: Inactive Member Role Status Dates Delonte Olivo , DO Primary Care Provide r, Attending Provider Active Start: July 16, 2024 End: July 16, 2024 Team Status: Active Member Role Status Dates Delonte Olivo , DO Primary Care Provider Active Start: September 14, 2024 Marian Roa NORM Attending Provider Active Start: September 14, 2024 Team Status: Active Member Role Status Dates Delonte Olivo , DO Primary Care Provide r, Attending Provider Active Start: September 17, 2024 Team Status: Inactive Member Role Status Dates Delonte Geovani , DO Primary Care Provide r, Attending Provider Active Start: September 20, 2024 End: September 20, 2024 Team Status: Active Member Role Status Dates Delonte Olivo , DO Primary Care Provide r, Attending Provider Active Start: September 27, 2024 Team Status: Active Member Role Status Dates Delonte Olivo , DO Primary Care Provide r, Attending Provider Active Start: October 25, 2024 Team Status: Active Member Role Status Dates Delonte Olivo , DO Primary Care Provide r, Attending Provider Active Start: November 11, 2024 Team Status: Inactive Member Role Status Dates Delonte Olivo , DO Primary Care Provide r, Attending Provider Active Start: November 12, 2024 End: November 12, 2024 Team Status: Inactive Member Role Status Dates Delonte Olivo , DO Primary Care Provide r, Attending Provider Active Start: November 26, 2024 End: November 26, 2024 Team Status: Active Member Role Status Dates Delonte Olivo , DO Primary Care Provide r, Attending Provider Active Start: December 15, 2024 Goals (unrecognized section and content) Goals [...] BE BASED ON THE PRIMARY CLINICAL RECORDS. [facility]. provides no warranty or guarantee of the accuracy or completeness of information in this document.
[2025-01-05 08:23] LABS: Estimated GFR (African America 54 (>=60 mL/min/1.73m^2); Estimated GFR (Non-African Ame 45 (>=60 mL/min/1.73m^2)
== END 2025-01-05 07:33 | disposition home or self-care (01) ==
LOC: LAB 07:32
PROVIDERS: PCP Internal Medicine; Visit Provider Otolaryngology
DX: H90.A22 Sensorineural hearing loss, unilateral, left ear, with restricted hearing on the contralateral side (principal); H93.12 Tinnitus, left ear
CPT/HCPCS: 36415; 82565

== ENCOUNTER 2025-01-20 08:54 | Outpatient (OUT) | payer MEDICARE, SELFPAY ==
--- NOTE | 2025-01-20 09:00 | CA_ITS ---
Patient Name: DALE NUNN MR#: [id number] : 1960 Exam Date: 01/20/2025 Ordering Doctor: NARESH AVELAR CNP ECHOCARDIOGRAM REPORT PROCEDURE: CA ECHO DOPPLER COMPLETE INDICATIONS: Atrial fibrillation COMPARISON: None. DESCRIPTION: COMPLETE ECHOCARDIOGRAM Real-time transthoracic echocardiography with 2D, M-mode, spectral and color flow Doppler performed. QUALITY: Technical quality was good. LEFT VENTRICLE: Normal chamber size. Normal left ventricular wall thickness. LV EF: Normal left ventricular systolic function without wall motion abnormalities, ejection fraction 55% DIASTOLIC: Not adequately assessed due to heart rhythm. ATRIAL SEPTUM: Visually appears intact. A bright echodensity is seen projecting from the septum into the right atrial cavity, could be a lipomatous atrial septum however other possibilities such as tumor should be ruled out. Recommend KADE versus cardiac MRI. LEFT ATRIUM: Mild dilatation. RIGHT ATRIUM: Normal chamber size. RIGHT VENTRICLE: Normal chamber size. Decreased right ventricular systolic function. TRICUSPID VALVE: Normal mobility and thickness. No stenosis with trivial regurgitation. MITRAL VALVE: Normal mobility and thickness. No evidence of mitral valve stenosis. Mild mitral annular calcification. Trivial mitral regurgitation. AORTIC VALVE: Normal trileaflet appearance. Mildly calcified aortic valve. Normal leaflet mobility. No evidence of aortic valve stenosis. No aortic regurgitation. AORTIC ROOT: Normal diameter and appearance. PULMONIC VALVE: Not well visualized. No stenosis. No regurgitation. PERICARDIUM: No evidence of pericardial effusion. IVC: Collapes with inspirations. IVC is normal in size. PLEURA: CONCLUSION: Technically difficult study Normal left ventricular size and wall thickness Normal left ventricular systolic function without wall motion abnormalities, ejection fraction 55% Normal right ventricle size but probably reduced systolic function Mild mitral annulus calcification No significant valvular abnormalities Bright echodensity noted to project from the atrial septum into the right atrial activity, could represent lipomatous atrial septum however as possibilities such as tumor should be ruled out. Recommend KADE versus cardiac MRI Adult Echocardiography Procedure Report Left Ventricle LVEDD (3.7 - 5.6 cm): 4.51 cm LVESD (2.2 - 4.0 cm): 3.30 cm LVIVS thickness (0.6 - 1.2 cm): 0.82 cm LVPW thickness (0.5 - 1.0 cm): 0.97 cm LVOT Max Gradient: 1.25 mm[Hg], 2.07 mm[Hg] LVOT Area (cm2): 0.64 m/s Peak Velocity (LVOT): 0.56 m/s, 0.72 m/s LVOT Diameter 1.95 cm Left Atrium LA Volume Index (2D A2C): 37.77 ml/m2 Left Atrium Systolic Dimension: 4.01 cm Mitral Valve Mitral Valve E-Wave Peak Velocity: 1.04 m/s Right Ventricle Aorta AO Root Diam: 3.41 cm Aortic Valve AoV Area (Peak Thomas): 1.95 cm2, 1.64 cm2, 2.30 cm2 Peak Velocity(Antegrade Flow): 1.02 m/s, 0.94 m/s Peak Gradient(Antegrade Flow): 4.16 mm[Hg], 3.52 mm[Hg] Tricuspid Valve Pulmonic Valve Peak Velocity: 1.02 m/s Peak Gradient: 3.53 mm[Hg], 4.84 mm[Hg], 4.09 mm[Hg], 4.09 mm[Hg] Right Atrium Right Atrium Systolic Pressure: 48.98 ml, 48.98 ml Dictated by: Earlene Jacques MD on 01/20/2025 at 18:33 Approved by: Earlene Jacques MD on 01/20/2025 at 18:44
== END 2025-01-20 08:55 | disposition home or self-care (01) ==
LOC: CARD 08:55
PROVIDERS: PCP Internal Medicine; Visit Provider Nurse Practitioner Family
DX: I48.11 Longstanding persistent atrial fibrillation (principal)
CPT/HCPCS: 93306

== ENCOUNTER 2025-01-26 09:47 | Outpatient (OUT) | payer MEDICARE, SELFPAY | END 2025-01-26 09:48 | disposition home or self-care (01) | LOC: US 09:47 | PROVIDERS: PCP Internal Medicine | DX: R60.0 Localized edema (principal); I83.93 Asymptomatic varicose veins of bilateral lower extremities | CPT/HCPCS: 93970 ==

== ENCOUNTER 2025-02-03 08:49 | Outpatient (OUT) | payer MEDICARE, SELFPAY ==
--- NOTE | 2025-02-03 09:00 | CA_ITS ---
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 Interpretive Statements Summary of the findings: Right leg: MARIA FERNANDA= 1.06; TBI= 0.69. Doppler waveforms demonstrate multiphasic flow at the posterior tibial and dorsalis pedis arteries. Left leg: MARIA FERNANDA= 1.04; TBI= 0.39. Doppler waveforms demonstrate biphasic flow at the posterior tibial and dorsalis pedis arteries. Segmental pressures: Segmental pressures show calcified femoropopliteal arteries bilaterally and significant left sided inflow disease. Pulse volume recordings: PVRs at the high thigh, below knee, and ankle levels show normal waveforms on the right and mildly dampened on the left. Conclusion: Right and left ankle-brachial indices are suggestive of normal overall arterial flow at rest. Toe-brachial indices are suggestive of PAD. Segmental pressures show significant left sided inflow disease. Pulse volume recordings indicate reduced overall left sided resting arterial flow. The study shows evidence of PAD with normal overall arterial flow at rest. Electronically Signed On 02-03-2025 17:24:53 EDT by IRASEMA PRIDE M.D.
--- OUTSIDE RECORDS SUMMARY | 2025-02-03 09:04 | XMS_ITS | CCD ---
Author Organization [facility] Inform ion [facility] Care Team Providers Care Planer Setup Operator Name Role Phone Remberto Bonny Unavailable Bonny Raymundo Unavailable Malik MOLINA Attending Unavailable BALL PROVIDER, DELONTE Referring Unavaila ble DO Delonte Tejeda Primary Care Provider [phone] MD Deon Greene Attending Provider Delonte Tejeda Unavailable GEOVANI, DR BEST Consulting Unavailable BALL, [...] Primary Care Unavailable REQUEST, DR RICARDO LISTED Attending Unavaila ble REQUEST, DR RICARDO LISTED Consulting Unavaila ble REQUEST, NONE LISTED [...] Care Provider DO Delonte Tejeda Attending Provider [phone] Delonte Tejeda Admitting Unavailable Geovani, Delonte Primary Care Unavailable Goevani, Delonte Attending Unavailable Zackary, Bonny Gloria Admitting Unavailable Zackary, Bonny Gloria Attending Unavailable Delonte Tejeda Primary Care Unavailable KASSY, JOSEPHINE Silva Attending Unavailable KINA MCQUEEN Attending Unavailable DELONTE TEJEDA Referring Unavailable REBECCA, FELIPE Referring Unavailable REBECCA, FELIPE Referring Unavailable ROSIO, NARESH Attending Unavailable REGINO, LACHO Attending Unavailable REBECCA, FELIPE Referring Unavailable REBECCA, FELIPE Attending Unavailable REBECCA, FELIPE Admitting Unavailable REBECCA, FELIPE Attending Unavailable REBECCA, FELIPE Attending Unavailable REBECCA, FELIPE Referring Unavailable REBECCA, FELIPE Referring Unavailable AGUILAR, ADONIS Attending Unavailable NAZZAL, SHELIA Referring Unavailable REBECCA, FELIPE Referring Unavailable REBECCA, FELIPE Referring Unavailable ROSIO, NARESH Attending Unavailable REBECCA, FELIPE Admitting Unavailable REBECCA, FELIPE Referring Unavailable MELA, SHAWN Attending Unavailable CUPID, TESTING PROJECTS ADMINISTRATOR Admitting Unavailable CUPID, TESTING PROJECTS ADMINISTRATOR Attending Unavailable REBECCA, FELIPE Attending Unavailable REBECCA, FELIPE Referring Unavailable Medications [...] tablet Active 150 MG PO Daily 45 90 July 16, 2024 4:37pm Start: 06-29-2024 End: 07-16-2024 take 1 tablet by mouth once daily Allopurinol 300 mg tablet Discontinued 0 .ROUTE .COMPLEX 90 June 29, 2024 8:34am July 16, 2024 4:38pm TAKE 1 TABLET BY MOUTH DAILY Start: 06-29-2024 take 1 tablet by eriberto th once daily Allopurinol Active 0 .ROUTE .COMPLEX 90 June 29, 2024 8:34am TAKE 1 TABLET BY MOUTH DAILY Start: 06-27-2021 End: 06-29-2024 take 1 tablet by mouth once daily Allopurinol 300 mg Tablet Discontinued 300 MG PO Daily June 27, 2021 12:00am June 29, 2024 8:35am amiodarone hydrochloride 200 mg oral tablet (6 sources) Antiarrhythmic Start: 03-12-2024 take 1 tablet by mouth once daily Amiodarone 200 mg tablet Active 200 MG PO Daily March 12, 2024 12:00am amLODIPine 5 mg oral tablet (20 sources) Dihydropyridine Calcium Channel Ezequiel Start: 12-29-2024 take 1 tablet by mouth once daily Amlodipine 5 mg tablet Active 5 MG PO Daily 90 December 29, 2024 8:52am Start: 02-23-2024 End: 12-29-2024 take 1 tablet by mouth once daily Amlodipine 5 mg tablet Discontinued 0 .ROUTE .COMPLEX February 23, 2024 1:45pm December 29, 2024 8:54am TAKE 1 TABLET BY MOUTH DAILY Start: 06-27-2021 End: 02-23-2024 take 1 tablet by mouth once daily Amlodipine 5 mg Tablet Discontinued 5 MG PO Daily June 27, 2021 12:00am February 23, 2024 1:45pm carvedilol 25 mg oral tablet (20 sources) alpha-Adrenergic Ezequiel, beta-Adrenergic Ezequiel Start: 03-12-2024 Carvedilol 25 mg tablet Active 37.5 MG PO Twice daily March 12, 2024 9:44am Start: 03-12-2024 take 37.5 mg by mout h twice daily Carvedilol Active 37.5 MG PO Twice daily March 12, 2024 9:44am Start: 03-12-2024 End: 03-12-2024 take 1 tablet by mouth twice daily Carvedilol 25 mg tablet Discontinued 25 MG PO Twice daily March 12, 2024 9:01am March 12, 2024 9:45am Start: 01-27-2024 End: 03-12-2024 Carvedilol 25 mg tablet Disc ontinued 37.5 MG PO Every 12 hours 270 90 January 27, 2024 5:57pm March 12, 2024 9:04am Start: 01-27-2024 End: 03-12-2024 take 37.5 mg [...] 2023 7:57pm January 06, 2024 4:03pm Start: 12-18-2023 End: 01-06-2024 take 37.5 mg by mouth twice daily Carvedilol Discontinued 37.5 MG PO Twice daily 90 December 18, 2023 7:57pm January 06, 2024 4:03pm Start: 06-27-2021 End: 12-18-2023 take 2 tablets by mouth twice daily Carvedilol 12.5 mg Tablet Discontinued 25 MG PO Twice daily June 27, 2021 12:00am December 18, 2023 7:58pm Start: 06-27-2021 End: 12-18-2023 take 25 mg by mouth twice daily Carvedilol Discontinue d 25 MG PO Twice daily June 27, 2021 12:00December 18, 2023 7:58pm take 1 tablet by [...] Once a day for 30 day(s) Active doxycycline hyclate 100 mg oral capsule (1 source) Tetracycline-class Drug Start: 5 take 1 capsule by mouth twice daily Doxycycline Hyclate 100 mg capsule Active 100 MG PO Twice daily January 07, 2025 12:00am etodolac 500 mg oral tablet (13 sources) Nonsteroidal Anti-inflammatory Drug Start: 3 take 1 tablet by mouth every twelve hours Etodolac 500 MG 1 tablet with food Orally Twice a day for 15 days Dec, Active famotidine 20 mg oral tablet (4 sources) Histamine-2 Receptor Antagonist Start: 4 take 1 tablet by mouth once daily Famotidine 20 mg tablet Active 20 MG PO Daily September 14, 2024 1:00am furosemide 40 mg oral tablet (20 sources) Loop Diuretic Start: 4 Furosemide 40 mg tablet Active 40 MG PO Every 48 hours 45 July 16, 2024 4:37pm Start: 02-23-2024 End: 07-16-2024 take 1 tablet by mouth once daily Furosemide 40 mg tablet Discontinued 0 .ROUTE .COMPLEX February 23, 2024 1:45pm July 16, 2024 4:38pm TAKE 1 TABLET BY MOUTH DAILY Start: 06-27-2021 End: 02-23-2024 take 1 tablet by mouth once daily Furosemide 40 mg Tablet Discontinued 40 MG PO Daily June 27, [...] Glargine-Yfgn 100 unit/mL (3 mL) insulin pen (4 sources) Start: 04-28-2024 Insulin Glargi ne-Yfgn 100 unit/mL (3 mL) insulin pen Active 50 UNIT SUBCUT Daily April 28, 2024 12:00am Start: 04-28-2024 Insulin Glargi ne-Yfgn 100 unit/mL (3 mL) insulin pen Active 50 UNIT SUBCUT Daily April 27, 2024 11:00pm lisinopril 40 mg oral tablet (20 sources) Angiotensin Converting Enzyme Inhibitor Start: 11-02-2024 take 1 tablet by mouth once daily Lisinopril 40 mg tablet Active 40 MG PO Daily November 02, 2024 6:07pm Start: 06-29-2024 End: 11-02-2024 take 1 tablet by mouth once daily Lisinopril 40 mg tablet Discontinued 0 .ROUTE .COMPLEX June 29, 2024 8:34am November 02, 2024 6:07pm TAKE 1 TABLET BY MOUTH DAILY Start: 06-29-2024 take 1 tablet by eriberto th once daily Lisinopril Active 0 .ROUTE .COMPLEX June 29, 2024 8:34am TAKE 1 TABLET BY MOUTH DAILY Start: 06-27-2021 End: 06-29-2024 take 1 tablet by mouth once daily Lisinopril 40 mg Tablet Discontinued 40 MG PO Daily June 27, 2021 12:00am June 29, 2024 8:35am mecobalamin 1 mg chewable tablet (4 sources) Start: 11-12-2024 take 1 tablet by mouth once daily Mecobalamin (Vitamin B12) 1,000 mcg tablet,chewable Active 1000 MCG PO Daily November 12, 2024 1:00am omeprazole 40 mg delayed release oral capsule (4 sources) Proton Pump Inhibitor Start: 09-14-2024 take 1 capsule by mouth once daily Omeprazole 40 mg capsule,delayed release(DR/EC) Active 40 MG PO Daily September 14, 2024 1:00am ozempic (1 mg/dose) 4 mg/3ml solution pen-injector (5 sources) Start: 01-29-2023 inject 1 mg by subcutaneous injection every week Ozempic (1 MG/DOSE) 4 MG/3ML 1 MG Subcutaneous weekly Jan, Active potassium chloride 20 meq extended release oral tablet (20 sources) Start: 12-29-2024 take 1 tablet by mouth once daily Potassium Chloride 20 mEq tablet extended release Active 20 MEQ PO Daily December 29, 2024 8:53am Start: 06-29-2024 End: 12-29-2024 take 1 tablet by mouth once daily Potassium Chloride 20 mEq tablet extended release Discontinued 0 .ROUTE .COMPLEX June 29, 2024 8:34am December 29, 2024 8:54am TAKE ONE TABLET BY MOUTH DAILY Start: 06-29-2024 take 1 tablet by eriberto th once daily Potassium Chloride Active 0 .ROUTE .COMPLEX June 29, 2024 8:34am TAKE ONE TABLET BY MOUTH DAILY Start: 06-27-2021 End: 06-29-2024 take 1 tablet by mouth once daily Potassium Chloride 20 mEq Tablet Extended Release Discontinued 20 MEQ PO Daily June 27, 2021 12:00am June 29, 2024 8:35am Potassium Chlori de 20 MEQ 1 packet Orally Once a day for 30 day(s) Active pravastatin sodium 40 mg oral tablet (20 sources) HMG-CoA Reductase Inhibitor Start: 12-29-2024 take 1 tablet by mouth once daily Pravastatin 40 mg tablet Active 40 MG PO Daily December 29, 2024 8:53am Start: 02-23-2024 End: 12-29-2024 take 1 tablet by mouth once daily in the evening Pravastatin 40 mg tablet Discontinued 0 .ROUTE .COMPLEX February 23, 2024 1:45pm December 29, 2024 8:54am TAKE ONE TABLET BY MOUTH EVERY EVENING Start: 06-27-2021 End: 02-23-2024 take 1 tablet by mouth once daily Pravastatin 40 mg Tablet Discontinued 40 MG PO Daily June 27, 2021 12:00am February 23, 2024 1:45pm rivaroxaban 20 mg oral tablet (20 sources) Factor Xa Inhibitor Start: 06-27-2021 End: 11-15-2024 take 1 tablet by mouth once daily Rivaroxaban (Xarelto) 20 mg tablet Active 20 MG PO Daily November 15, 2024 10:09am Xarelto Active 0.25 mg, 0.5 mg dose 1.5 ml semaglutide 1.34 mg/ml pen injector (20 sources) Start: 11-25-2022 Ozempic (0.25 or 0.5 MG/DOSE) 2 MG/1.5ML 0.25mg Subcutaneous weekly for 28 days Nov, Active Ozempic (0.25 or 0.5 MG/DOSE) 2 MG/1.5ML 0.5mg Subcutaneous weekly for 28 days Active Semaglutide 2 mg/dose (8 mg/3 mL) pen injector (4 sources) Start: 09-23-2024 inject 2 mg by subcutaneous injection every week Semaglutide 2 mg/dose (8 mg/3 mL) pen injector Active 2 MG SUBCUT every week September 23, 2024 3:02pm Start: 09-23-2024 inject 2 mg by subcu taneous injection every week Semaglutide 2 mg/dose (8 [...] Jul, Active ubiquinol 100 mg oral capsule (6 sources) Start: 03-12-2024 take 1 capsule by [...] (Original) flecainide acetate 100 mg oral tablet (16 sources) Antiarrhythmic Start: 06-27-2021 End: 10-07-2022 take 1 tablet by mouth every twelve hours Flecainide 100 mg Tablet Discontinued 100 MG PO Q12H June 27, 2021 12:00am October 07, 2022 9:41am Insulin Glargine (Lantus U-100 Insulin) 100 unit/mL Solution (9 sources) Start: 06-27-2021 End: 04-28-2024 inject 50 [...] 11:00pm metoprolol tartrate 50 mg oral tablet (14 sources) beta-Adrenergic Ezequiel Start: 06-27-2021 End: 10-07-2022 take 1 tablet by mouth twice daily as needed Metoprolol Tartrate 50 mg tablet Discontinued 50 MG PO Twice daily as needed for palpatation June 27, 2021 12:00am October 07, 2022 9:41am Semaglutide (12 sources) Start: 02-06-2024 End: 09-23-2024 inject 1 mg by subcutaneous injection every week Semaglutide (Ozempic) 1 mg/dose (4 mg/3 mL) pen injector Discontinued 1 MG SUBCUT every week February 06, 2024 5:39pm September 23, 2024 3:02pm Start: 02-06-2024 End: 09-23-2024 inject 1 mg [...] 27, 2021 12:00am February 04, 2024 8:14pm traMADol hydrochloride 50 mg oral tablet (4 sources) Opioid Agonist Start: 09-20-2024 End: 11-12-2024 take 1 tablet by mouth every six hours as needed for pain Tramadol 50 mg tablet Discontinued 50 MG PO Every 6 hours as needed for pain 28 September 20, 2024 1:00am November 12, 2024 9:57am Problems Active Problems Problem Classification Problem Date Documented Date Episodic/Chronic Acute and unspecified renal failure (1 source) Acute renal failure syndrome; Translations: [Acute kidney failure, unspecified] 07-16-2024 Episodic Acute posthemorrhagic anemia (8 sources) Acute posthemorrhagic anemia; Translations: [Acute posthemorrhagic [...] RV size/function - 08/2024 Chronic kidney disease (7 sources) Chronic kidney disease; Translations: [Chronic kidney disease, unspecified] 07-29-2024 Chronic Complications of surgical procedures or medical care (11 sources) Cardiovascular system complication of procedure; Translations: [...] medial meniscus] Onset: 08-08-2016 Chronic Nutritional deficiencies (4 sources) Cobalamin deficiency; Translations: [Deficiency of other specified B group vitamins] 11-26-2024 Episodic Osteoarthritis (20 sources) Bilateral arthritis of knees; Translations: [Bilateral primary osteoarthritis of knee] Chronic Other aftercare (20 sources) Long-term current use of insulin; Translations: [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 editor (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] Episodic Other and [...] Episodic Other diseases of veins and lymphatics (6 sources) Venous insufficiency of leg; Translations: [Venous insufficiency (chronic) (peripheral)] 03-10-2024 Episodic Other ear and sense organ disorders (2 sources) Unspecified hearing loss, bilateral; Translations: [Unspecified hearing loss] 11-26-2024 Chronic Other ear and sense organ disorders (2 sources) Impacted cerumen, bilateral; Translations: [Impacted cerumen] 11-26-2024 Episodic Other non-traumatic joint disorders (2 sources) [...] Chronic Other nutritional; endocrine; and metabolic disorders (10 sources) Obesity; Translations: [Obesity, unspecified] 03-12-2024 Chronic Other nutritional; endocrine; and metabolic disorders (3 sources) Obesity, unspecified; Translations: [Obesity, unspecified] 07-16-2024 Chronic Other screening for suspected conditions (not mental disorders or infectious disease) (10 sources) Encounter for screening for malignant neoplasm of prostate; Translations: [Patient encounter status] Episodic Comment on above: PSA: 0.39 - 11/2023 PSA: 0.39 - 11/2023, 0.27 - 10/2024 Other upper respiratory infections (1 source) Acute upper respiratory infection, unspecified Episodic Peripheral and visceral atherosclerosis (4 sources) Superficial femoral artery occlusion; Translations: [Unspecified atherosclerosis of [place] arteries of extremities, unspecified extremity] Onset: 10-20-2023 09-12-2024 Chronic Comment on above: left Residual codes; unclassified (20 sources) Obstructive sleep apnea syndrome; Translations: [Obstructive sleep apnea (adult) (pediatric)] Onset: 06-04-2022 Chronic Residual codes; unclassified (12 sources) Obstructive sleep apnea (adult) (pediatric); Translations: [...] encounter] Onset: 08-11-2017 Episodic Superficial injury; contusion (4 sources) Contusion of abdominal wall, initial encounter; [...] Onset: 01-14-2018 Episodic Other aftercare (6 sources) 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 editor (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; Translations: [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 editor (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] Onset: 12-16-2023 Episodic Other and unspecified benign neoplasm (5 sources) Lipoma of skin; Translations: [Lipoma of other skin and subcutaneous tissue] Onset: 05-17-2015 Episodic Other ear and sense organ disorders (5 sources) Impacted cerumen; Translations: [Impacted cerumen] Onset: 06-04-2017 Episodic Other injuries and conditions due to external causes (2 sources) Other injury of unspecified body region, initial encounter; Translations: [Other injury of unspecified body region, initial encounter] Onset: 09-09-2024 Episodic Other non-traumatic joint disorders (10 sources) [...] Value Interpretation Reference Range Facility Office Visiton 01-25-2025 Follow-up visit [id number] Rosalind Rush 1960 M Date Provider Department Center 01/25/2025 [facility] Family History Problem Relation Age of Onset Cancer Mother Heart disease Mother Cancer Father Other Sister Family Status - Relation Status Age at Mother Alive Father Sister Level of Service:85342 [place] OFFICE/OUTPATIENT ESTABLISHED LOW MDM 20 MIN Normal [facility] Estimated glomerular filtrat ion rate (GFR) non- Americanon 01-05-2025 GFR/1.73 sq M.predicted among non-blacks MDRD (S/P/Bld) [Vol rate/Area] Estimated glomerular filtration rate (GFR) non- Low >=60 mL/min/1.73m [address] [facility] Laboratory - Chemistry and C hemistry - challengeon 01-05-2025 Creatinine [Mass/Vol] 1.56 mg/dL High 0.70-1.[address] [facility] GFR/1.73 sq M.predicted MDRD (S/P/Bld) [Vol rate/Area] 54 mL/min/{1.73_m2} Low >=60 mL/min/1.73m [address] [facility] Follow-Upon 11-30-2024 Follow-Up [id number] Rosalind Rush 1960 M Date Provider Department Center 11/30/2024 NARESH CESPEDES [facility] Family History Problem Relation Age of Onset Cancer Mother Heart disease Mother Cancer Father Family Status - Relation Status Age at Mother Father Level of Service:09014 [place] OFFICE/OUTPATIENT ESTABLISHED MOD MDM 30 MIN Reason for Visit and Comments: Atrial Fibrillation [80] Normal [facility] Cholesterol in LDL Calc [Mas s/Vol]on 11-11-2024 Cholesterol in LDL [Mass/Vol] Cholesterol in LDL [Mass/volume] in Serum or Plasma by calculation [facility] Comment on above: <100 mg/dl [id number] 0-129 mg/dl NEAR OR ABOVE [id number] mg/dl BORDERLINE [id number] mg/dl HIGH>190 mg/dl VERY HIGH Cholesterol in VLDL Calc [Ma ss/Vol]on 11-11-2024 Cholesterol in VLDL [Mass/Vol] Cholesterol in VLDL [Mass/volume] in Serum or Plasma by calculation [facility] Estimated glomerular filtrat ion rate (GFR) non- Americanon 11-11-2024 GFR/1.73 sq M.predicted among non-blacks MDRD (S/P/Bld) [Vol rate/Area] Estimated glomerular filtration rate (GFR) non- Low >=60 mL/min/1.73m [address] [facility] Laboratory - Chemistry and C hemistry - challengeon 11-11-2024 Calcium [Mass/Vol] 9.1 mg/dL 8.5-10.1 [facility] Chloride [Moles/Vol] 104 mmol/L 98-[address] [facility] Cholesterol [Mass/Vol] 145 mg/dL <=[address] [facility] Cholesterol in HDL [Mass/Vol] 43 mg/dL 40-[address] [facility] Comment on above: > or =60 mg/dl - LOW CARDIOVASCULAR RISK<40 mg/dl - HIGH CARDIOVASCULAR RISK CO2 [Moles/Vol] 25.3 mmol/L 21.0-32.0 [facility] Cobalamin (Vitamin B12) [Mass/Vol] 493 pg/mL 232-[address] [facility] Comment on above: Performed at: [facility] [employer] [address] [id number] Director: Carlitos Low PhD, Phone: [phone] Creatinine [Mass/Vol] 1.47 mg/dL High 0.70-1.[address] [facility] GFR/1.73 sq M.predicted MDRD (S/P/Bld) [Vol rate/Area] 59 mL/min/{1.73_m2} Low >=60 mL/min/1.73m [address] [facility] Glucose [Mass/Vol] 121 mg/dL High 74-106 [facility] Potassium [Moles/Vol] 4.8 mmol/L 3.5-5.[address] [facility] Sodium [Moles/Vol] 140 mmol/L 136-145 [facility] Triglyceride [Mass/Vol] 123 mg/dL <=[address] [facility] Urea nitrogen [Mass/Vol] 28.0 mg/dL High 7.0-18.[address] [facility] Urea nitrogen/Creatinine [Mass ratio] 19.0 mg/mg [facility] No Panel Informationon 11-11 Prostate Specific Antigen Screen 0.27 ng/mL <=4.[address] [facility] Serum or plasma anion gap de terminationon 11-11-2024 Anion gap [Moles/Vol] Serum or plasma anion gap determination [facility] Serum or plasma total choles terol/high density lipoprotein (HDL) cholesterol mass deysi 11-11-2024 Cholesterol.total/C holesterol in HDL [Mass ratio] Serum or plasma total cholesterol/high density lipoprotein (HDL) cholesterol mass [facility] Comment on above: 3.3 - 4.4 LOW RISK4. 4 - 7.1 AVERAGE RISK7.1 - 11.0 MODERATE RISK>11.0 HIGH RISK Follow-Upon 11-10-2024 Follow-Up [id number] Rosalind Rush 1960 M Date Provider Department Center 11/10/2024 [id number], ADONIS HVCVASENDO CT [facility] Family History Problem Relation Age of Onset Cancer Mother Heart disease Mother Cancer Father Family Status - Relation Status Age at Mother Father Level of Service:70985 [place] OFFICE/OUTPATIENT ESTABLISHED MOD MDM 30 MIN Reason for Visit and Comments: New Patient [632] - Blood clot/blockage-Ref Dr Fatima -he wants pt seen after ablation Last seen as inpatient 09/12/24 w resident Testings 09/10/24 [facility] 10-27-2024 [facility] Electrophysiology Consult Note Reason for visit: persistent [...] any shortness of breath, chest pain, fatigue. [id number] at least 2 for hypertension, DM 2, takes Xarelto 20 mg daily he was seen by Tenzin PRATT and at that time 14-day event [...] Year: No Utilities: Not At Risk (09/09/2024) [facility] Utilities Threatened with loss of [...] tablet (2 (more content not included)... Normal [facility] NURSNOTEon 10-27-2024 NURSNOTE RN educated pt on [...] of unit with all of belongings. Normal [facility] Basophils Auto (Bld) [#/Vol] on 10-25-2024 Basophils (Bld) [#/Vol] Automated basophil count 0.0-0.[address] [facility] Basophils/100 WBC Auto (Bld) on 10-25-2024 Basophils/100 WBC (Bld) Automated basophil % 0.2-2.[address] [facility] Eosinophils/100 WBC Auto (Bl d)on 10-25-2024 Eosinophils/100 WBC (Bld) Automated eosinophil % 0.9-7.[address] [facility] Erythrocyte distribution wid th Auto (RBC) [Ratio]on 10-25-2024 Erythrocyte distribution width (RBC) [Ratio] Erythrocyte distribution width [Ratio] by Automated count 11.0-15.[address] [facility] Estimated glomerular filtrat ion rate (GFR) non- Americanon 10-25-2024 GFR/1.73 sq M.predicted among non-blacks MDRD (S/P/Bld) [Vol rate/Area] Estimated glomerular filtration rate (GFR) non- Low >=60 mL/min/1.73m [address] [facility] Hematocrit Auto (Bld) [Volum e fraction]on 10-25-2024 Hematocrit (Bld) [Volume fraction] Hematocrit [Volume Fraction] of Blood by Automated count Low 42.0-54.[address] [facility] Hemoglobin [Mass/volume] in Bloodon 10-25-2024 Hemoglobin (Bld) [Mass/Vol] Hemoglobin [Mass/volume] in Blood Low 14.0-18.[address] [facility] Laboratory - Chemistry and C hemistry - challengeon 10-25-2024 Calcium [Mass/Vol] 9.5 mg/dL 8.5-10.1 [facility] Chloride [Moles/Vol] 103 mmol/L 98-[address] [facility] CO2 [Moles/Vol] 27.2 mmol/L 21.0-32.0 [facility] Creatinine [Mass/Vol] 1.44 mg/dL High 0.70-1.[address] [facility] GFR/1.73 sq M.predicted MDRD (S/P/Bld) [Vol rate/Area] 60 mL/min/{1.73_m2} >=60 mL/min/1.73m [address] [facility] Glucose [Mass/Vol] 132 mg/dL High 74-106 [facility] Magnesium [Mass/Vol] 1.9 mg/dL 1.8-2.[address] [facility] Potassium [Moles/Vol] 4.6 mmol/L 3.5-5.[address] [facility] Sodium [Moles/Vol] 139 mmol/L 136-145 [facility] Urea nitrogen [Mass/Vol] 24.0 mg/dL High 7.0-18.[address] [facility] Urea nitrogen/Creatinine [Mass ratio] 16.7 mg/mg [facility] Laboratory - Hematology and Cell countson 10-25-2024 Immature granulocytes/100 WBC (Bld) 0.3 % 0.0-0.[address] [facility] Leukocytes [#/volume] correc rosa for nucleated erythrocytes in Blood by Automated counon 10-25-2024 WBC corrected for nucl RBC Auto (Bld) [#/Vol] Leukocytes [#/volume] corrected for nucleated erythrocytes in Blood by Automated coun 4.0-11.[address] [facility] Lymphocytes Auto (Bld) [#/Vo l]on 10-25-2024 Lymphocytes (Bld) [#/Vol] Lymphocytes [#/volume] in Blood by Automated count Low 1.2-3.[address] [facility] Lymphocytes/100 WBC Auto (Bl d)on 10-25-2024 Lymphocytes/100 WBC (Bld) Lymphocytes/100 leukocytes in Blood by Automated count Low 20.5-60.[address] [facility] MCH Auto (RBC) [Entitic mass ]on 10-25-2024 MCH (RBC) [Entitic mass] MCH [Entitic mass] by Automated count 25.9-34.[address] [facility] MCHC Auto (RBC) [Mass/Vol]on 10-25-2024 MCHC (RBC) [Mass/Vol] MCHC [Mass/volume] by Automated count 29.9-35.[address] [facility] MCV Auto (RBC) [Entitic vol] on 10-25-2024 MCV (RBC) [Entitic vol] MCV [Entitic volume] by Automated count High 80.0-94.[address] [facility] Monocytes Auto (Bld) [#/Vol] on 10-25-2024 Monocytes (Bld) [#/Vol] Automated blood monocyte count 0.3-0.[address] [facility] Monocytes/100 WBC Auto (Bld) on 10-25-2024 Monocytes/100 WBC (Bld) Automated monocyte % 1.7-12.[address] [facility] Neutrophils Auto (Bld) [#/Vo l]on 10-25-2024 Neutrophils (Bld) [#/Vol] Neutrophils [#/volume] in Blood by Automated count 1.4-6.[address] [facility] Neutrophils/100 WBC Auto (Bl d)on 10-25-2024 Neutrophils/100 WBC (Bld) Automated neutrophil % 43.0-75.[address] [facility] No Panel Informationon 10-25 Eosinophils # (Auto) 0.1 10 3/uL 0.0-0.[address] [facility] Immature Granulocyte # (Auto) 0.02 10 3/uL 0.00-0.[address] [facility] Platelet mean volume Auto (B ld) [Entitic vol]on 10-25-2024 Platelet mean volume (Bld) [Entitic vol] Platelet mean volume [Entitic volume] in Blood by Automated count 9.5-13.[address] [facility] Platelets Auto (Bld) [#/Vol] on 10-25-2024 Platelets (Bld) [#/Vol] Platelets [#/volume] in Blood by Automated count 150-[address] [facility] RBC Auto (Bld) [#/Vol]on RBC (Bld) [#/Vol] Erythrocytes [#/volume] in Blood by Automated count Low 4.70-6.[address] [facility] Serum or plasma anion gap de terminationon 10-25-2024 Anion gap [Moles/Vol] Serum or plasma anion gap determination [facility] Orders Onlyon 10-19-2024 Orders Only [id number] Rosalind Rush 1960 M Date Provider Department Center 10/19/2024 CONNIE BYRNE [facility] Family History Problem Relation Age of Onset Cancer Mother Heart disease Mother Cancer Father Family Status - Relation Status Age at Mother Father Normal [facility] Follow-Upon 09-29-2024 Follow-Up [id number] Rosalind Rush 1960 M Date Provider Department Center 09/29/2024 Jojo-NARESH [facility] Family History Problem Relation Age of Onset Cancer Mother Heart disease Mother Cancer Father Family Status - Relation Status Age at Mother Father Level of Service:59829 [place] OFFICE/OUTPATIENT ESTABLISHED MOD MDM 30 MIN Reason for Visit and Comments: Atrial Fibrillation [80] Normal [facility] Basophils Auto (Bld) [#/Vol] on 09-27-2024 Basophils (Bld) [#/Vol] Automated basophil count 0.0-0.[address] [facility] Basophils/100 WBC Auto (Bld) on 09-27-2024 Basophils/100 WBC (Bld) Automated basophil % 0.2-2.[address] [facility] Eosinophils/100 WBC Auto (Bl d)on 09-27-2024 Eosinophils/100 WBC (Bld) Automated eosinophil % 0.9-7.[address] [facility] Erythrocyte distribution wid th Auto (RBC) [Ratio]on 09-27-2024 Erythrocyte distribution width (RBC) [Ratio] Erythrocyte distribution width [Ratio] by Automated count 11.0-15.[address] [facility] Hematocrit Auto (Bld) [Volum e fraction]on 09-27-2024 Hematocrit (Bld) [Volume fraction] Hematocrit [Volume Fraction] of Blood by Automated count Low 42.0-54.[address] [facility] Hemoglobin [Mass/volume] in Bloodon 09-27-2024 Hemoglobin (Bld) [Mass/Vol] Hemoglobin [Mass/volume] in Blood Low 14.0-18.[address] [facility] Iron binding capacity [Mass/ volume] in Serum or Plasmaon 09-27-2024 Iron binding capacity [Mass/Vol] Iron binding capacity [Mass/volume] in Serum or Plasma 250.0-450.[address] [facility] Iron saturation [Mass Fracti on] in Serum or Plasmaon 09-27-2024 Iron saturation [Mass fraction] Iron saturation [Mass Fraction] in Serum or Plasma [facility] Laboratory - Chemistry and C hemistry - challengeon 09-27-2024 Cobalamin (Vitamin B12) [Mass/Vol] 290 pg/mL [id number] [facility] Comment on above: Performed at: [address] [id number] Director: Carlitos Low PhD, Phone: [phone] Ferritin [Mass/Vol] 465.0 ng/mL High 26.0-388.0 [facility] Iron [Mass/Vol] 68.0 ug/dL 65.0-175.[address] [facility] Laboratory - Hematology and Cell countson 09-27-2024 Immature granulocytes/100 WBC (Bld) 0.2 % 0.0-0.[address] [facility] Leukocytes [#/volume] correc rosa for nucleated erythrocytes in Blood by Automated counon 09-27-2024 WBC corrected for nucl RBC Auto (Bld) [#/Vol] Leukocytes [#/volume] corrected for nucleated erythrocytes in Blood by Automated coun 4.0-11.[address] [facility] Lymphocytes Auto (Bld) [#/Vo l]on 09-27-2024 Lymphocytes (Bld) [#/Vol] Lymphocytes [#/volume] in Blood by Automated count Low 1.2-3.[address] [facility] Lymphocytes/100 WBC Auto (Bl d)on 09-27-2024 Lymphocytes/100 WBC (Bld) Lymphocytes/100 leukocytes in Blood by Automated count Low 20.5-60.[address] [facility] MCH Auto (RBC) [Entitic mass ]on 09-27-2024 MCH (RBC) [Entitic mass] MCH [Entitic mass] by Automated count 25.9-34.[address] [facility] MCHC Auto (RBC) [Mass/Vol]on 09-27-2024 MCHC (RBC) [Mass/Vol] MCHC [Mass/volume] by Automated count 29.9-35.[address] [facility] MCV Auto (RBC) [Entitic vol] on 09-27-2024 MCV (RBC) [Entitic vol] MCV [Entitic volume] by Automated count High 80.0-94.[address] [facility] Monocytes Auto (Bld) [#/Vol] on 09-27-2024 Monocytes (Bld) [#/Vol] Automated blood monocyte count 0.3-0.[address] [facility] Monocytes/100 WBC Auto (Bld) on 09-27-2024 Monocytes/100 WBC (Bld) Automated monocyte % 1.7-12.[address] [facility] Neutrophils Auto (Bld) [#/Vo l]on 09-27-2024 Neutrophils (Bld) [#/Vol] Neutrophils [#/volume] in Blood by Automated count 1.4-6.[address] [facility] Neutrophils/100 WBC Auto (Bl d)on 09-27-2024 Neutrophils/100 WBC (Bld) Automated neutrophil % 43.0-75.[address] [facility] No Panel Informationon 09-27 Eosinophils # (Auto) 0.1 10 3/uL 0.0-0.[address] [facility] Folate 13.50 ng/mL 8.60-58.[address] [facility] Immature Granulocyte # (Auto) 0.01 10 3/uL 0.00-0.[address] [facility] Platelet mean volume Auto (B ld) [Entitic vol]on 09-27-2024 Platelet mean volume (Bld) [Entitic vol] Platelet mean volume [Entitic volume] in Blood by Automated count 9.5-13.[address] [facility] Platelets Auto (Bld) [#/Vol] on 09-27-2024 Platelets (Bld) [#/Vol] Platelets [#/volume] in Blood by Automated count 150-[address] [facility] RBC Auto (Bld) [#/Vol]on RBC (Bld) [#/Vol] Erythrocytes [#/volume] in Blood by Automated count Low 4.70-6.[address] [facility] Basophils Auto (Bld) [#/Vol] on 09-17-2024 Basophils (Bld) [#/Vol] Automated basophil count 0.0-0.[address] [facility] Basophils/100 WBC Auto (Bld) on 09-17-2024 Basophils/100 WBC (Bld) Automated basophil % 0.2-2.[address] [facility] Eosinophils/100 WBC Auto (Bl d)on 09-17-2024 Eosinophils/100 WBC (Bld) Automated eosinophil % 0.9-7.[address] [facility] Erythrocyte distribution wid th Auto (RBC) [Ratio]on 09-17-2024 Erythrocyte distribution width (RBC) [Ratio] Erythrocyte distribution width [Ratio] by Automated count 11.0-15.[address] [facility] Estimated glomerular filtrat ion rate (GFR) non- Americanon 09-17-2024 GFR/1.73 sq M.predicted among non-blacks MDRD (S/P/Bld) [Vol rate/Area] Estimated glomerular filtration rate (GFR) non- Low >=60 mL/min/1.73m [address] [facility] Hematocrit Auto (Bld) [Volum e fraction]on 09-17-2024 Hematocrit (Bld) [Volume fraction] Hematocrit [Volume Fraction] of Blood by Automated count Low 42.0-54.[address] [facility] Hemoglobin [Mass/volume] in Bloodon 09-17-2024 Hemoglobin (Bld) [Mass/Vol] Hemoglobin [Mass/volume] in Blood Low 14.0-18.[address] [facility] Laboratory - Chemistry and C hemistry - challengeon 09-17-2024 Calcium [Mass/Vol] 9.0 mg/dL 8.5-10.1 [facility] Chloride [Moles/Vol] 103 mmol/L 98-[address] [facility] CO2 [Moles/Vol] 24.5 mmol/L 21.0-32.0 [facility] Creatinine [Mass/Vol] 1.71 mg/dL High 0.70-1.[address] [facility] GFR/1.73 sq M.predicted MDRD (S/P/Bld) [Vol rate/Area] 49 mL/min/{1.73_m2} Low >=60 mL/min/1.73m [address] [facility] Glucose [Mass/Vol] 105 mg/dL 74-106 [facility] Magnesium [Mass/Vol] 1.9 mg/dL 1.8-2.[address] [facility] Potassium [Moles/Vol] 4.6 mmol/L 3.5-5.[address] [facility] Sodium [Moles/Vol] 139 mmol/L 136-145 [facility] Urea nitrogen [Mass/Vol] 28.0 mg/dL High 7.0-18.[address] [facility] Urea nitrogen/Creatinine [Mass ratio] 16.4 mg/mg [facility] Laboratory - Hematology and Cell countson 09-17-2024 Immature granulocytes/100 WBC (Bld) 0.4 % 0.0-0.[address] [facility] Leukocytes [#/volume] correc rosa for nucleated erythrocytes in Blood by Automated counon 09-17-2024 WBC corrected for nucl RBC Auto (Bld) [#/Vol] Leukocytes [#/volume] corrected for nucleated erythrocytes in Blood by Automated coun 4.0-11.[address] [facility] Lymphocytes Auto (Bld) [#/Vo l]on 09-17-2024 Lymphocytes (Bld) [#/Vol] Lymphocytes [#/volume] in Blood by Automated count Low 1.2-3.[address] [facility] Lymphocytes/100 WBC Auto (Bl d)on 09-17-2024 Lymphocytes/100 WBC (Bld) Lymphocytes/100 leukocytes in Blood by Automated count Low 20.5-60.[address] [facility] MCH Auto (RBC) [Entitic mass ]on 09-17-2024 MCH (RBC) [Entitic mass] MCH [Entitic mass] by Automated count High 25.9-34.[address] [facility] MCHC Auto (RBC) [Mass/Vol]on 09-17-2024 MCHC (RBC) [Mass/Vol] MCHC [Mass/volume] by Automated count 29.9-35.[address] [facility] MCV Auto (RBC) [Entitic vol] on 09-17-2024 MCV (RBC) [Entitic vol] MCV [Entitic volume] by Automated count High 80.0-94.[address] [facility] Comment on above: MACROCYTOSIS 2+ Monocytes Auto (Bld) [#/Vol] on 09-17-2024 Monocytes (Bld) [#/Vol] Automated blood monocyte count High 0.3-0.[address] [facility] Monocytes/100 WBC Auto (Bld) on 09-17-2024 Monocytes/100 WBC (Bld) Automated monocyte % 1.7-12.[address] [facility] Neutrophils Auto (Bld) [#/Vo l]on 09-17-2024 Neutrophils (Bld) [#/Vol] Neutrophils [#/volume] in Blood by Automated count High 1.4-6.[address] [facility] Neutrophils/100 WBC Auto (Bl d)on 09-17-2024 Neutrophils/100 WBC (Bld) Automated neutrophil % 43.0-75.[address] [facility] No Panel Informationon 09-17 Eosinophils # (Auto) 0.1 10 3/uL 0.0-0.[address] [facility] Immature Granulocyte # (Auto) 0.04 10 3/uL High 0.00-0.[address] [facility] Platelet mean volume Auto (B ld) [Entitic vol]on 09-17-2024 Platelet mean volume (Bld) [Entitic vol] Platelet mean volume [Entitic volume] in Blood by Automated count 9.5-13.[address] [facility] Platelets Auto (Bld) [#/Vol] on 09-17-2024 Platelets (Bld) [#/Vol] Platelets [#/volume] in Blood by Automated count 150-[address] [facility] RBC Auto (Bld) [#/Vol]on RBC (Bld) [#/Vol] Erythrocytes [#/volume] in Blood by Automated count Low 4.70-6.[address] [facility] Serum or plasma anion gap de terminationon 09-17-2024 Anion gap [Moles/Vol] Serum or plasma anion gap determination [facility] Telephoneon 09-15-2024 Telephone [id number] Rosalind Rush 1960 M Date Provider Department Center 09/15/20241986-GALLO [facility] V[facility] LAB [facility] Family History Problem Relation Age of Onset Cancer Mother Heart disease Mother Cancer Father Family Status - Relation Status Age at Mother Father Reason for Visit and Comments: week f/u post ablation [Other] Normal [facility] 36on 09-13-2024 36 Post Discharge Call Good morning, I am Anahi May, RN a lead nurse from [facility]. I am calling you to follow [...] discuss? Patient Name Salomón Rush Date 09/13/24 [facility] Telephoneon 09-13-2024 Telephone [id number] Rosalind Rush 1960 M Date Provider Department Center 09/13/2024 Whitley-ANAHI MAY [facility] Family History Problem Relation Age of Onset Cancer Mother Heart disease Mother Cancer Father Family Status - Relation Status Age at Mother Father Reason for Visit and Comments: Hospital Follow-up [832] Normal [facility] 30on 09-12-2024 30 The patient is Moderately [...] facility with appropriate resources Outcome: Progressing Normal [facility] HEMOGLOBIN AND HEMATOCRIT, B Vickie 09-12-2024 Hematocrit (Bld) [Volume fraction] 25.1 % Low 39.0-55.0 [facility] Comment on above: Performed By: #### L [id number] #### [facility] (BEAKER) [address] [place] [address] Hemoglobin (Bld) [Mass/Vol] 8.6 g/dL Low 13.0-17.0 [facility] Comment on above: Performed By: #### L [id number] #### [facility] ([facility]) [address] [place] [address] Hematocrit (Bld) [Volume fraction] 25.3 % Low 39.0-55.0 [facility] Comment on above: Performed By: #### L [id number] #### [facility] ([facility]) [address] [place] [address] Hemoglobin (Bld) [Mass/Vol] 8.4 g/dL Low 13.0-17.0 [facility] Comment on above: Performed By: #### L [id number] #### [facility] ([facility]) [address] [place] [address] POCT GLUCOSE METER UNSOLICIT ED RESULTSon 09-12-2024 Glucose [Mass/Vol] 157 mg/dL High 70-105 [facility] Comment on above: Order Comment: Waive d Testing in the ED is performed under the ED CLIA certificate #[id number]. Result Comment: tevin [email or web address] Performed By: #### L [id number] #### [facility] ([facility]) [address] [facility] [facility] [place] [address] 30on 09-11-2024 30 The patient is Moderately [...] and maintained or improved Outcome: Progressing Normal [facility] 30 The patient is Moderately Stable - [...] facility with appropriate resources Outcome: Progressing Normal [facility] HEMOGLOBIN AND HEMATOCRIT, B LOODon 09-11-2024 Hematocrit (Bld) [Volume fraction] 25.7 % Low 39.0-55.0 [facility] Comment on above: Performed By: #### L [id number] ####[facility] (BEAKER)[address] [place] [address] Hemoglobin (Bld) [Mass/Vol] 8.6 g/dL Low 13.0-17.0 [facility] Comment on above: Performed By: #### L [id number] ####[facility] (BEAKER)[address] [place] [address] Hematocrit (Bld) [Volume fraction] 26.8 % Low 39.0-55.0 [facility] Comment on above: Performed By: #### L [id number] #### [facility] (BEAKER) [address] [place] [address] Hemoglobin (Bld) [Mass/Vol] 9.0 g/dL Low 13.0-17.0 [facility] Comment on above: Performed By: #### L [id number] #### [facility] (BEAKER) [address] [place] [address] Hematocrit (Bld) [Volume fraction] 26.6 % Low 39.0-55.0 [facility] Comment on above: Performed By: #### L [id number] #### [facility] (BEAKER) [address] [place] [address] Hemoglobin (Bld) [Mass/Vol] 8.9 g/dL Low 13.0-17.0 [facility] Comment on above: Performed By: #### L [id number] #### [facility] (BEAKER) [address] [place] [address] POCT GLUCOSE METER UNSOLICIT ED RESULTSon 09-11-2024 Glucose [Mass/Vol] 183 mg/dL High 70-105 [facility] Comment on above: Order Comment: Waive d Testing in the ED is performed under the ED CLIA certificate #[id number]. Result Comment: [email or web address] Performed By: #### L [id number] ####[facility] (Kauli)[address] [place] [address] Glucose [Mass/Vol] 168 mg/dL High 70-105 [facility] Comment on above: Order Comment: Waive d Testing in the ED is performed under the ED CLIA certificate #[id number]. Result Comment: [email or web address] Performed By: #### L [id number] #### [facility] ([place]) [address] [place] [address] Glucose [Mass/Vol] 264 mg/dL High 70-105 [facility] Comment on above: Order Comment: Waive d Testing in the ED is performed under the ED CLIA certificate #[id number]. Result Comment: [email or web address] Performed By: #### L [id number] #### [facility] ([place]) [address] [place] [address] Glucose [Mass/Vol] 180 mg/dL High 70-105 [facility] Comment on above: Order Comment: Waive d Testing in the ED is performed under the ED CLIA certificate #[id number]. Result Comment: [email or web address] Performed By: #### L [id number] #### [facility] ([employer]) [address] [place] [address] 30on 09-10-2024 30 The patient is Moderately [...] and behaviors that affect risk of falls [place] fall precautions as indicated by assessment Educate [...] and prevent overall improvement and discharge Normal [facility] 30 The patient is Moderately Stable - [...] facility with appropriate resources Outcome: Progressing Normal [facility] CONSULTon 09-10-[address] [facility] Vascular/Endovascular Surgery Division Reason For Consult [...] the La (more content not included)... Normal [facility] CONSULT -- Attestation signed by Jay Soliman [...] vascular surgery input. Jay Soliman MD, MPH, [facility], [facility], [facility] Interventional Cardiology Pager Email: [email or web address] ADDENDUM: Discussed with EP colleague Dr. [...] tablet 3 (more content not included)... Normal [facility] HEMOGLOBIN AND HEMATOCRIT, B Vickie 09-10-2024 Hematocrit (Bld) [Volume fraction] 26.4 % Low 39.0-55.0 [facility] Comment on above: Performed By: #### L [id number] #### [facility] (BEAKER) [address] [place] [address] Hemoglobin (Bld) [Mass/Vol] 9.0 g/dL Low 13.0-17.0 [facility] Comment on above: Performed By: #### L [id number] #### [facility] (BEAKER) [address] [place] [address] Hematocrit (Bld) [Volume fraction] 28.3 % Low 39.0-55.0 [facility] Comment on above: Performed By: #### L [id number] #### [facility] ([facility]) [address] [place] [address] Hemoglobin (Bld) [Mass/Vol] 9.8 g/dL Low 13.0-17.0 [facility] Comment on above: Performed By: #### L [id number] #### [facility] ([facility]) [address] [place] [address] Hematocrit (Bld) [Volume fraction] 30.2 % Low 39.0-55.0 [facility] Comment on above: Performed By: #### L [id number] ####[facility] ([facility])[address] [place] [address] Hemoglobin (Bld) [Mass/Vol] 9.9 g/dL Low 13.0-17.0 [facility] Comment on above: Performed By: #### L [id number] ####[facility] ([facility])[address] [facility] [place] [address] POCT GLUCOSE METER UNSOLICIT ED RESULTSon 09-10-2024 Glucose [Mass/Vol] 201 mg/dL High 70-105 [facility] Comment on above: Order Comment: Waive d Testing in the ED is performed under the ED CLIA certificate #[id number]. Result Comment: [email or web address] Performed By: #### L [id number] ####[facility] ([facility])[address] [place] [address] Glucose [Mass/Vol] 168 mg/dL High 70-105 [facility] Comment on above: Order Comment: Waive d Testing in the ED is performed under the ED CLIA certificate #[id number]. Result Comment: dee dee [email or web address] Performed By: #### L [id number] #### [facility] ([facility]) [address] [place] [address] 30on 09-09-2024 30 The patient is Moderately [...] injury: Assess patient frequently for physical needs [place] fall precautions as indicated by assessment Instruct [...] conditions and prevent exacerbation or deterioration Normal [facility] BASIC METABOLIC PANELon - Anion gap [Moles/Vol] 16 mmol/L Normal - [facility] Comment on above: Performed By: #### L [id number] #### [facility] (BEAKER) [address] [place] [address] Calcium [Mass/Vol] 8.8 mg/dL Normal 8.6-10.3 [facility] Comment on above: Performed By: #### L [id number] #### [facility] (DANNY) [address] [place] [address] Chloride [Moles/Vol] 104 mmol/L Normal 98-107 [facility] Comment on above: Performed By: #### L [id number] #### [facility] (DEE DEE) [address] [place] [address] CO2 [Moles/Vol] 20 mmol/L Low 21-31 [facility] Comment on above: Performed By: #### L [id number] #### [facility] (DEE DEE) [address] [place] [address] Creatinine [Mass/Vol] 1.21 mg/dL Normal 0.70-1.30 [facility] Comment on above: Performed By: #### L [id number] #### [facility] (DEE DEE) [address] [place] [address] GLOMERULAR FILTRATION RATE ML/MIN/1.73 SQ M.PREDICTED 66.9 mL/min/1.73m*2 Normal >60.0 [facility] Comment on above: Result Comment: The [facility]???s estimated glomerular filtration rate (eGFR) will no [...] individuals. Performed By: #### L [id number] #### [facility] (BEDEE DEE) [address] [place] [address] Glucose [Mass/Vol] 179 mg/dL High 70-100 [facility] Comment on above: Performed By: #### L [id number] #### [facility] (BEAKER) [address] [place] [address] Potassium [Moles/Vol] 4.7 mmol/L Normal 3.5-5.1 [facility] Comment on above: Performed By: #### L [id number] #### [facility] (BEAKER) [address] [place] [address] Sodium [Moles/Vol] 135 mmol/L Low 136-145 [facility] Comment on above: Performed By: #### L [id number] #### [facility] (BEAKER) [address] [place] [address] Urea nitrogen [Mass/Vol] 24 mg/dL Normal 7-25 [facility] Comment on above: Performed By: #### L [id number] #### [facility] [address] [place] [address] UREA NITROGEN/CREATININE (MASS RATIO) IN SER/PLAS 19.8 Normal [facility] Comment on above: Performed By: #### L [id number] #### [facility] [address] [place] [address] CTA ABDOMEN PELVIS W IV CONT RASTon [...] this report. Electronically signed: Chris De Leon. [facility] CTA LOWER EXTREMITY LEFT W I [...] report. Electronically signed: Chris De Leon. Normal [facility] HEMOGLOBIN AND HEMATOCRIT, B Vickie 09-09-2024 Hematocrit (Bld) [Volume fraction] 34.7 % Low 39.0-55.0 [facility] Comment on above: Performed By: #### L [id number] #### [facility] (BEAKER) [address] [place] [address] Hemoglobin (Bld) [Mass/Vol] 11.7 g/dL Low 13.0-17.0 [facility] Comment on above: Performed By: #### L [id number] #### [facility] (BEAKER) [address] [place] [address] HPon 09-09-2024 [facility] Electrophysiology Consult Note Reason for visit: persistent [...] any shortness of breath, chest pain, fatigue. [id number] at least 2 for hypertension, DM 2, takes Xarelto 20 mg daily he was seen by Tenzin PRATT and at that time 14-day event [...] Year: No Utilities: Not At Risk (09/09/2024) [facility] Utilities Threatened with loss of [...] time, pl (more content not included)... Normal [facility] NURSNOTEon 09-09-2024 NURSNOTE Around 2109 lead technical writer paged cardiology to notify him that pt groin was getting increasingly larger, starting to swell and bruise more. Site was becoming firm. mortgage sales manager said to take a picture of pt groin and attach it to pt chart, also to hold pressure for 15 minutes and that he would notify Dr. Lugo. Provider called lead technical writer back to notify him that he was going to get vascular surgery involved. Around 2139 Vascular sx. PA came to bedside to assess pt. He said he would call Dr. Mcdonald and figure out a plan. Around 2199, PA told lead technical writer that Dr. Mcdonald said to continue holding pressure until hematoma goes down. Around 2229, able seaman came to bedside to assess pt groin site. Fellow ordered STAT H&H, STAT CTA of abdomen and left lower extremity, and 0.5 mg of dilaudid q3 for patient's pain. Bottomer Operator and other RN's continuing to alternate holding pressure on groin site. Normal [facility] NURSNOTE Pt came from EP lab from getting Afib Ablation. Left groin site was bruised. Bottomer Operator called somebody from EP lab to come take a look at it when patient first got to unit. It was soft and of no concern. Now it is bruised and hardened at the site. Bottomer Operator called someone from EP lab to take a look. 2 EP lab nurses came to hold pressure. 10 minutes later another staff member came up to assist. The area has softened and material handler 1st shift nurser has been instructed to check back in 10 minutes to make sure it has not hardened. [facility] Orders Onlyon 09-09-2024 Orders Only [id number] Rosalind Rush 1960 M Date Provider Department Center 09/09/20241986-GALLO [facility] VASC LAB CT HeartVAS Family History Problem Relation Age of Onset Cancer Mother Heart disease Mother Cancer Father Family Status - Relation Status Age at Mother Father [facility] POCT GLUCOSE METER UNSOLICIT ED RESULTSon 09-09-2024 Glucose [Mass/Vol] 162 mg/dL High 70-105 [facility] Comment on above: Order Comment: Waive d Testing in the ED is performed under the ED CLIA certificate #[id number]. Result Comment: paul som3 Performed By: #### L [id number] ####[facility] LAB (BEAKER)[address] [place] [address] Glucose [Mass/Vol] 146 mg/dL High 70-105 [facility] Comment on above: Order Comment: Waive d Testing in the ED is performed under the ED CLIA certificate #[id number]. Result Comment: dspe ars Performed By: #### L [id number] #### [facility] (BEAKER) [address] [place] [address] Glucose [Mass/Vol] 126 mg/dL High 70-105 [facility] Comment on above: Order Comment: Waive d Testing in the ED is performed under the ED CLIA certificate #[id number]. Result Comment: acle ment Performed By: #### L [id number] #### [facility] (BEAKER) [address] [place] [address] PROTIME-INRon 09-09-2024 INR IN PPP BY COAGULATION ASSAY 1.16 High 0.90-1.10 [facility] Comment on above: Result Comment: ACCC P [...] 1995;[id number]. Performed By: #### L [id number] #### [facility] (BEAKER) [address] [place] [address] PROTHROMBIN TIME (PT) IN PPP BY COAGULATION ASSAY 14.8 Seconds Normal 12.3-14.8 [facility] Comment on above: Performed By: #### L [id number] #### [facility] (BEAKER) [address] [place] [address] Prep for Procedureon 024 Prep for Procedure [id number] Rosalind Rush 1960 M Date Provider Department Center 09/09/20241986-G[facility] Family History Problem Relation Age of Onset Cancer Mother Heart disease Mother Cancer Father Family Status - Relation Status Age at Mother Father Normal [facility] [id number] 09-01-2024 [id number] SURGERY DATE: 4 Medications to take Morning [...] THE FOLLOWING ARE NOT AVAILABLE: An adult non emergency services ambulance driver over the age of 18, that [...] lenses. Do not wear perfume, make-up, nail st helenian, or lotions on the day of your [...] need to make any changes, please call [phone]. Notify your surgeon if you develop any illness such as a cold, cough, fever, sore throat or vomiting between now and your surgery. Thank you for entrusting us with your care. [facility] Surgical Services Team [facility] [id number] Notified Gallo [phone] Fatima's clinic that Patient don't have non emergency services ambulance driver to go home after surgery, but he will have a non emergency services ambulance driver next day. He will be admitted per Gallo if no non emergency services ambulance driver at same day. Normal [facility] Prep for Procedureon 024 Prep for Procedure [id number] Rosalind Rush 1960 Date Provider Department Center 07/28/2024 Aniket-G[facility] VASC LAB CT HeartVAS Family History Problem Relation Age of Onset Cancer Mother Heart disease Mother Cancer Father Family Status - Relation Status Age at Mother Father [facility] Office Visiton 07-27-2024 Follow-up visit [id number] Rosalind Rush 1960 Provider Department Center 07/27/2024 FELIPE COWAN DUDLEY Pérez Family History Problem Relation Age of Onset Cancer Mother Heart disease Mother Cancer Father Family Status - Relation Status Age at Mother Father Level of Service:48263 [place] OFFICE/OUTPATIENT ESTABLISHED LOW MDM 20 MIN [facility] Glucose mean value [Mass/vol ume] in Blood Estimated from glycated hemoglobinon 06-23-2024 Average glucose Estimated from glycated hemoglobin (Bld) [Mass/Vol] 114 mg/dL [facility] Laboratory - Hematology and Cell countson 06-23-2024 HbA1c (Bld) [Mass fraction] 5.6 % 4.5-6.[address] [facility] Comment on above: ADA RECOMMENDED LIMI T 4.0 - 6.0ADA THERAPEUTIC TARGET < 7.0ACTION SUGGESTED> 7.0 Office Visiton 04-21-2024 Follow-up visit [id number] Rosalind Rush 1960 Date Provider Department Center 04/21/2024 LACHO JORDAN [facility] Family History Problem Relation Age of Onset Cancer Mother Heart disease Mother Cancer Father Family Status - Relation Status Age at Mother Father Level of Service:40370 [place] POSTOP FOLLOW UP VISIT RELATED TO ORIGINAL PX Normal [facility] HPon 03-24-2024 [facility] Electrophysiology Consult Note Reason for visit: persistent [...] any shortness of breath, chest pain, fatigue. [id number] at least 2 for hypertension, DM 2, takes Xarelto 20 mg daily he was seen by Tenzin PRATT and at that time 14-day event [...] on file Intimate Partner Violence: Unknown (12/11/2023) CT Safety & Environment Fear of Current or [...] swelling Neurologic Gait (more content not included)... [facility] NURSNOTEon 03-24-2024 NURSNOTE RN educated pt on d/ c instructions. RN encouraged pt to voice any questions or concerns. Pt verbalizes no questions or concerns at this time. Pt was wheeled off of unit with all of belongings. [facility] Orders Onlyon 03-16-2024 Orders Only [id number] Rosalind Rush rajiv Troy 1960 M Date Provider Department Center 03/16/2024 [facility]NIE [facility] VASC LAB CT HeartVAS Family History Problem Relation Age of Onset Cancer Mother Heart disease Mother Cancer Father Family Status - Relation Status Age at Mother Father [facility] ECH echo transthoracicon [facility] echo transthoracic [place] [address] Echocardiogram Signed Patient: Salomón Rush MR#: [id number] 90 : 1960 Acct:[id number] Age/Sex: 62 / M ADM Date: 10/17/23 Loc: Room: Type: [facility] Attending Dr: Delonte Tejeda DO Ordering Provider: Delonte Tejeda DO Date of Service: 10/17/23/ E[facility] echo transthoracic: Chronic Afib. SOB. Copies to: DO Ortiz Coronado MD Weight: 320 lb Performed By: Patricia Gillis CATHRYN BSA: 2.5 m2 BP: 142/82 mmHg [...] By: Ortiz Singletary MD 10/17/[address] [facility] XR hip LT min 2V(w/wo pelvis )*on 06-05-2023 XR hip LT min 2V(w/wo pelvis)* [place] [address] XRay Report Signed Patient: Salomón Rush MR#: [id number] 90 : 1960 Acct:[id number] Age/Sex: 62 / M ADM Date: 06/05/23 [facility] Type[facility] Attending Dr: Bonny Raymundo APRN Copies to: [...] Calvin Thibodeaux M.D.06/05/2023 12:25 PM Dictation Location: [id number]-13 Transcribed By: NORMA 06/05/23 1225 Dictated By: Calvin Thibodeaux II, MD 06/05/23 1223 Signed By: 06/05/23 [address] [facility] XR hip LT min 2V(w/wo pelvis)* [facility] [email or web address] [facility] Other XR hip LT min 2V(w/wo pelvis)* [facility] [place] [facility] Other XR hip LT min 2V(w/wo pelvis)* [address] [place] [address] [facility] Other XR hip LT min 2V(w/wo pelvis)* [place] [address] [facility] Other XR hip LT min 2V(w/wo pelvis)* XRay Report [facility] Other XR hip LT min 2V(w/wo pelvis)* Signed [facility] Other XR hip LT min 2V(w/wo pelvis)* Patient: Salomón Rush MR#: [id number] [facility] Other XR hip LT min 2V(w/wo pelvis)* 90 [facility] Other XR hip LT min 2V(w/wo pelvis)* : 1960 Acct:[id number] [facility] Other XR hip LT min 2V(w/wo pelvis)* Age/Sex: 62 / M ADM Date: 06/05/23 [facility] Other XR hip LT min 2V(w/wo pelvis)* Loc: X[facility]CLY Room: Type: [facility] Other XR hip LT min 2V(w/wo pelvis)* Attending Dr: Bonny Raymundo APRN [facility] Other XR hip LT min 2V(w/wo pelvis)* Copies to: Bonny Raymundo APRN [facility] Other XR hip LT min 2V(w/wo pelvis)* Ordering Provider: Bonny Raymundo APRN [facility] Other XR hip LT min 2V(w/wo pelvis)* Date of Service: 06/05/23 [facility] Other XR hip LT min 2V(w/wo pelvis)* XR/XR hip LT min 2V(w/wo pelvis)*: Left hip pain [facility] Other XR hip LT min 2V(w/wo pelvis)* XR hip LT min 2V(w/wo pelvis)* 06/05/2023 11:57 AM [facility] Other XR hip LT min 2V(w/wo pelvis)* SIGNS AND SYMPTOMS: Left hip pain [facility] Other XR hip LT min 2V(w/wo pelvis)* PROTOCOL: Frontal radiograph of the pelvis with frontal and frog-leg views of the left hip [facility] Other XR hip LT min 2V(w/wo pelvis)* COMPARISON: None [facility] Other XR hip LT min 2V(w/wo pelvis)* FINDINGS: [facility] Other XR hip LT min 2V(w/wo pelvis)* There is mild narrowing of the joint spaces of the hips. Degenerative changes are noted in the [facility] Other XR hip LT min 2V(w/wo pelvis)* lumbar spine and sacroiliac joints. The bony ring of the pelvis is intact. There is no fracture or [facility] Other XR hip LT min 2V(w/wo pelvis)* dislocation. Vascular calcifications are present. [facility] Other XR hip LT min 2V(w/wo pelvis)* XR/XR hip LT min 2V(w/wo pelvis)* [facility] Other XR hip LT min 2V(w/wo pelvis)* IMPRESSION: [facility] Other XR hip LT min 2V(w/wo pelvis)* No fracture or dislocation. [facility] Other XR hip LT min 2V(w/wo pelvis)* Degenerative changes are noted in the lumbar spine and sacroiliac joints. [facility] Other XR hip LT min 2V(w/wo pelvis)* Impression dictated by: Calvin Thibodeaux M.D.06/05/2023 12:25 PM [facility] Other XR hip LT min 2V(w/wo pelvis)* Dictation Location: [place] [address] [facility] Other XR hip LT min 2V(w/wo pelvis)* Transcribed By: NORMA 06/05/23 [facility] Other XR hip LT min 2V(w/wo pelvis)* Dictated By: Calvin Thibodeaux II, MD 06/05/23 [facility] Other XR hip LT min 2V(w/wo pelvis)* Signed By: [facility] Other XR hip LT min 2V(w/wo pelvis)* 06/05/23 [facility] [facility] Other CBC AUTO DIFFon 02-21-2023 BASO # 0.1 103/ul Normal 0.0-0.1 [facility] Comment on above: Performed By: #### L IPID, T4, TSH, CMP #### [facility] [address] [address] [address] Rena Barone Basophils/100 WBC (Bld) 0.4 % Normal 0.2-2.0 [facility] Comment on above: Performed By: #### L IPID, T4, TSH, CMP #### [facility] [address] [place] [address] Dr. Rena Barone EO # 0.4 103/ul Normal 0.0-0.7 [facility] Comment on above: Performed By: #### L IPID, T4, TSH, CMP #### [facility] [address] [place] [address] Dr. Rena Barone Eosinophils/100 WBC (Bld) 3.1 % Normal 0.9-7.0 [facility] Comment on above: Performed By: #### L IPID, T4, TSH, CMP #### [facility] [address] [place] [address] Dr. Rena Barone Erythrocyte distribution width (RBC) [Ratio] 12.5 % Normal 11.0-15.0 [facility] Comment on above: Performed By: #### L IPID, T4, TSH, CMP #### [facility] [address] [place] [address] Dr. Rena Barone Hematocrit (Bld) [Volume fraction] 38.9 % Critically low 42.0-54.0 [facility] Comment on above: Performed By: #### L IPID, T4, TSH, CMP #### [facility] [address] [place] [address] Dr. Rena Barone Hemoglobin (Bld) [Mass/Vol] 13.2 g/dL Critically low 14.0-18.0 [facility] Comment on above: Performed By: #### L IPID, T4, TSH, CMP #### [facility] [address] [place] [address] Dr. Rena Barone IG # 0.05 10e3/ul Critically high 0.00-0.03 [facility] Comment on above: Performed By: #### L IPID, T4, TSH, CMP #### [facility] [address] [place] [address] Dr. Rena Barone IG % 0.4 % Normal 0.0-0.5 [facility] Comment on above: Performed By: #### L IPID, T4, TSH, CMP #### [facility] [address] [place] [address] Dr. Rena Barone LYMPH # 3.2 103/ul Normal 1.2-3.8 [facility] Comment on above: Performed By: #### L IPID, T4, TSH, CMP #### [facility] [address] [place] [address] Dr. Rena Barone Lymphocytes/100 WBC (Bld) 28.6 % Normal 20.5-60.0 [facility] Comment on above: Performed By: #### L IPID, T4, TSH, CMP #### [facility] [address] [place] [address] Dr. Rena Barone MANUAL DIFF REQ NO Normal [facility] Comment on above: Performed By: #### L IPID, T4, TSH, CMP #### [facility] [address] [place] [address] Dr. Rena Barone MCH (RBC) [Entitic mass] 33.7 pg Normal 25.9-34.0 [facility] Comment on above: Performed By: #### L IPID, T4, TSH, CMP #### [facility] [address] [place] [address] Dr. Rena Barone MCHC (RBC) [Mass/Vol] 33.9 g/dL Normal 29.9-35.2 [facility] Comment on above: Performed By: #### L IPID, T4, TSH, CMP #### [facility] [address] [place] [address] Dr. Rena Barone MCV (RBC) [Entitic vol] 99.2 fL Critically high 80.0-94.0 [facility] Comment on above: Performed By: #### L IPID, T4, TSH, CMP #### [facility] [address] [place] [address] Dr. Rena Barone MONO # 1.0 103/ul Critically high 0.3-0.8 [facility] Comment on above: Performed By: #### L IPID, T4, TSH, CMP #### [facility] [address] [place] [address] Dr. Rena Barone Monocytes/100 WBC (Bld) 8.8 % Normal 1.7-12.0 [facility] Comment on above: Performed By: #### L IPID, T4, TSH, CMP #### [facility] [address] [address] [address] Rena Barone NEUT # 6.6 103/ul Critically high 1.4-6.5 [facility] Comment on above: Performed By: #### L IPID, T4, TSH, CMP #### [facility] [address] [address] [address] Rena Barone Neutrophils/100 WBC (Bld) 58.7 % Normal 43.0-75.0 [facility] Comment on above: Performed By: #### L IPID, T4, TSH, CMP #### [facility] [address] [place] [address] Dr. Rena Barone Platelet mean volume (Bld) [Entitic vol] 11.2 fL Normal 9.5-13.5 [facility] Comment on above: Performed By: #### L IPID, T4, TSH, CMP #### [facility] [address] [address] [address] Rena Barone PLT 202 103/ul Normal 150-450 [facility] Comment on above: Performed By: #### L IPID, T4, TSH, CMP #### [facility] [address] [place] [address] Dr. Rena Barone RBC 3.92 106/ul Critically low 4.70-6.10 [facility] Comment on above: Performed By: #### L IPID, T4, TSH, CMP #### [facility] [address] [place] [address] Dr. Rena Barone WBC 11.3 103/ul Critically high 4.0-11.0 The [facility] Comment on above: Performed By: #### L IPID, T4, TSH, CMP #### [facility] [address] [place] [address] Dr. Rena Barone LIPID PROFILEon 02-21-2023 CHOL-HDL RATIO NORM SEE BELOW Normal [facility] Comment on above: Result Comment: 3.3 - 4.4 LOW RISK 4.4 - 7.1 AVERAGE RISK 7.1 - 11.0 MODERATE RISK >11.0 HIGH RISK Performed By: #### L IPID, T4, TSH, CMP #### [facility] [address] [address] [address] Rena Barone Cholesterol [Mass/Vol] 127 mg/dL Normal <=200 [facility] Comment on above: Performed By: #### L IPID, T4, TSH, CMP #### [facility] [address] [address] [address] Rena Barone Cholesterol in HDL [Mass/Vol] 24 mg/dL Critically low 40-60 [facility] Comment on above: Performed By: #### L IPID, T4, TSH, CMP #### [facility] [address] [address] [address] Rena Barone Cholesterol in LDL [Mass/Vol] 58.4 mg/dL Normal [facility] Comment on above: Performed By: #### L IPID, T4, TSH, CMP #### [facility] [address] [address] [address] Rena Barone Cholesterol.total/C holesterol in HDL [Mass ratio] 5.3 {ratio} Normal [facility] Comment on above: Performed By: #### L IPID, T4, TSH, CMP #### [facility] [address] [address] [address] Rena Barone HDL NORMAL > or = 60 mg/dl - LO W CARDIOVASCULAR RISK <40 mg/dl - HIGH CARDIOVASCULAR RISK Normal [facility] Comment on above: Performed By: #### L IPID, T4, TSH, CMP #### [facility] [address] [address] [address] Rena Barone LDL CALC NORMAL SEE BELOW Normal [facility] Comment on above: Result Comment: <100 mg/dl OPTIMAL 100 - 129 mg/dl NEAR OR ABOVE OPTIMAL 130 - 159 mg/dl BORDERLINE HIGH 160 - 189 mg/dl HIGH >190 mg/dl VERY HIGH Performed By: #### L IPID, T4, TSH, CMP #### [facility] [address] [address] [address] Rena Barone Triglyceride [Mass/Vol] 223 mg/dL Critically high <=150 [facility] Comment on above: Performed By: #### L IPID, T4, TSH, CMP #### [facility] [address] [address] [address] Rena Barone VLDL CALC 44.6 mg/dL Normal [facility] Comment on above: Performed By: #### L IPID, T4, TSH, CMP #### [facility] [address] [address] [address] Rena Barone PROF 14(COMP METB)on 023 Albumin [Mass/Vol] 3.8 g/dL Normal 3.4-5.0 [facility] Comment on above: Performed By: #### L IPID, T4, TSH, CMP #### [facility] [address] [address] [address] Rena Barone Albumin/Globulin [Mass ratio] 0.9 {ratio} Normal [facility] Comment on above: Performed By: #### L IPID, T4, TSH, CMP #### [facility] [address] [address] [address] Rena Barone ALP [Catalytic activity/Vol] 99 U/L Normal 46-116 [facility] Comment on above: Performed By: #### L IPID, T4, TSH, CMP #### [facility] [address] [address] [address] Rena Barone ALT [Catalytic activity/Vol] 31 U/L Normal 16-63 [facility] Comment on above: Performed By: #### L IPID, T4, TSH, CMP #### [facility] [address] [address] [address] Rena Barone Anion gap [Moles/Vol] 10.3 mmol/L Normal [facility] Comment on above: Performed By: #### L IPID, T4, TSH, CMP #### [facility] [address] [address] [address] Rena Barone AST [Catalytic activity/Vol] 23 U/L Normal 15-37 [facility] Comment on above: Performed By: #### L IPID, T4, TSH, CMP #### [facility] [address] [address] [address] Rena Barone Bilirubin [Mass/Vol] 0.5 mg/dL Normal 0.2-1.0 [facility] Comment on above: Performed By: #### L IPID, T4, TSH, CMP #### [facility] [address] [place] [address] Dr. Rena Barone Calcium [Mass/Vol] 9.3 mg/dL Normal 8.5-10.1 [facility] Comment on above: Performed By: #### L IPID, T4, TSH, CMP #### [facility] [address] [place] [address] Dr. Rena Barone Chloride [Moles/Vol] 100 mmol/L Normal 98-107 [facility] Comment on above: Performed By: #### L IPID, T4, TSH, CMP #### [facility] [address] [place] [address] Dr. Rena Barone CO2 [Moles/Vol] 25.9 mmol/L Normal 21.0-32.0 The [facility] Comment on above: Performed By: #### L IPID, T4, TSH, CMP #### [facility] [address] [place] [address] Dr. Rena Barone Creatinine [Mass/Vol] 1.34 mg/dL Critically high 0.70-1.30 [facility] Comment on above: Performed By: #### L IPID, T4, TSH, CMP #### [facility] [address] [place] [address] Dr. Rena Barone EGFR-AF ECUADOREAN >60 Normal >=60 The [facility] Comment on above: Performed By: #### L IPID, T4, TSH, CMP #### [facility] [facility] [address] [place] [address] Dr. Rena Barone EGFR-NON AF ECUADOREAN 54 mL/min/1.73m2 Critically low >=60 [facility] Comment on above: Performed By: #### L IPID, T4, TSH, CMP #### [facility] [address] [place] [address] Dr. Rena Barone Globulin (S) [Mass/Vol] 4.1 g/dL Normal [facility] Comment on above: Performed By: #### L IPID, T4, TSH, CMP #### [facility] [address] [place] [address] Dr. Rena Barone Glucose [Mass/Vol] 108 mg/dL Critically high 74-106 T [facility] Comment on above: Performed By: #### L IPID, T4, TSH, CMP #### [facility] [address] [place] [address] Dr. Rena Barone Potassium [Moles/Vol] 4.2 mmol/L Normal 3.5-5.1 [facility] Comment on above: Performed By: #### L IPID, T4, TSH, CMP #### [facility] [address] [place] [address] Dr. Rena Barone Protein [Mass/Vol] 7.9 g/dL Normal 6.4-8.2 [facility] Comment on above: Performed By: #### L IPID, T4, TSH, CMP #### [facility] [address] [place] [address] Dr. Rena Barone Sodium [Moles/Vol] 132 mmol/L Critically low 136-145 [facility] Comment on above: Performed By: #### L IPID, T4, TSH, CMP #### [facility] [address] [place] [address] Dr. Rena Barone Urea nitrogen [Mass/Vol] 30.0 mg/dL Critically high 7.0-18.0 [facility] Comment on above: Performed By: #### L IPID, T4, TSH, CMP #### [facility] [address] [place] [address] Dr. Rena Barone Urea nitrogen/Creatinine [Mass ratio] 22.4 mg/mg Normal [facility] Comment on above: Performed By: #### L IPID, T4, TSH, CMP #### [facility] [address] [place] [address] Dr. Rena Barone T4on 02-21-2023 T4 [Mass/Vol] 5.20 ug/dL Normal 4.50-12.10 [facility] Comment on above: Performed By: #### L IPID, T4, TSH, CMP #### [facility] [address] [address] [address] Rena Barone TSHon 02-21-2023 TSH 2.379 uIU/mL Normal 0.358-3.740 [facility] Comment on above: Performed By: #### L IPID, T4, TSH, CMP #### [facility] [address] [address] [address] Rena Barone GLYCOHEMOGLOBIN A1Con 2022 ADA RECOMMENDATION SEE BELOW Normal [facility] Comment on above: Result Comment: ADA RECOMMENDED LIMIT 4.0 - 6.0 ADA THERAPEUTIC TARGET < 7.0 ACTION SUGGESTED > 7.0 Performed By: #### L IPID, T4, TSH, CMP #### [facility] [address] [address] [address] Rena Barone Glucose [Mass/Vol] 169 mg/dL Normal [facility] Comment on above: Performed By: #### L IPID, T4, TSH, CMP #### [facility] [address] [address] [address] Rena Barone HbA1c (Bld) [Mass fraction] 7.5 % Critically high 4.5-6.2 [facility] Comment on above: Performed By: #### L IPID, T4, TSH, CMP #### [facility] [address] [address] [address] Rena Barone Glucose Glucometer (BldC) [M ass/Vol]Ordered By: Deon Greene on 10-07-2022 Glucose [Mass/Vol] 170 mg/dL [facility] Comment on above: Random Glucose Refer ence Range is dependent on time and content of last meal. Glucose of more than 200 mg/dL in a nonstressed, ambulatory subject supports the diagnosis of Diabetes Mellitus. GLYCOHEMOGLOBIN A1Con 2021 ADA RECOMMENDATION SEE BELOW Normal The [facility] Comment on above: Result Comment: ADA RECOMMENDED LIMIT 4.0 - 6.0 ADA THERAPEUTIC TARGET < 7.0 ACTION SUGGESTED > 7.0 Performed By: #### L IPID, T4, TSH, CMP #### [facility] [address] [address] [address] Rena Barone Glucose [Mass/Vol] 160 mg/dL Normal [facility] Comment on above: Performed By: #### L IPID, T4, TSH, CMP #### [facility] [address] [address] [address] Rena Barone HbA1c (Bld) [Mass fraction] 7.2 % Critically high 4.5-6.2 [facility] Comment on above: Performed By: #### L IPID, T4, TSH, CMP #### [facility] [address] [address] [address] Rena Barone Physician Referralon 022 Physician Referral [phone] [id number] Normal [facility] COVID Quick Testingon 2021 Result Positive [facility] Other METHYLMALONIC ACID (MMA)on 0 03-23-2022 Methylmalonic Acid, Serum 210 nmol/L Normal 0-378 [facility] Comment on above: Performed By: #### L IPID, T4, TSH, CMP #### [facility] [address] [address] [address] Rena Barone FOLATE ([facility])on 2 Folate 16.6 ng/mL Normal >3.0 [facility] Comment on above: Result Comment: A se rum folate concentration of less than 3.1 ng/mL is considered to represent clinical deficiency. Performed By: #### L IPID, T4, TSH, CMP #### [facility] [address] [place] [address] Dr. Rena Barone GLYCOHEMOGLOBIN A1Con 2021 ADA RECOMMENDATION SEE BELOW Normal The [facility] Comment on above: Result Comment: ADA RECOMMENDED LIMIT 4.0 - 6.0 ADA THERAPEUTIC TARGET < 7.0 ACTION SUGGESTED > 7.0 Performed By: #### L IPID, T4, TSH, CMP #### [facility] [address] [place] [address] Dr. Rena Barone Glucose [Mass/Vol] 160 mg/dL Normal [facility] Comment on above: Performed By: #### L IPID, T4, TSH, CMP #### [facility] [address] [place] [address] Dr. Rena Barone HbA1c (Bld) [Mass fraction] 7.2 % Critically high 4.5-6.2 [facility] Comment on above: Performed By: #### L IPID, T4, TSH, CMP #### [facility] [address] [place] [address] Dr. Rena Barone RETICULOCYTEon 03-15-2022 RETIC 1.64 % Normal 0.60-3.10 [facility] Comment on above: Performed By: #### R ETIC #### [facility] [address] [place] [address] Dr. Rena Barone VITAMIN B12on 03-15-2022 Cobalamin (Vitamin B12) [Mass/Vol] 386.0 pg/mL Normal 193.0-986.0 [facility] Comment on above: Performed By: #### L IPID, T4, TSH, CMP #### [facility] [address] [place] [address] Dr. Rena Barnoe CBC AUTO DIFFon 02-26-2022 BASO # 0.0 103/ul Normal 0.0-0.1 [facility] Comment on above: Performed By: #### L IPID, T4, TSH, CMP #### [facility] [address] [place] [address] Dr. Rena Barone Basophils/100 WBC (Bld) 0.3 % Normal 0.2-2.0 [facility] Comment on above: Performed By: #### L IPID, T4, TSH, CMP #### [facility] [address] [place] [address] Dr. Rena Barone EO # 0.2 103/ul Normal 0.0-0.7 [facility] Comment on above: Performed By: #### L IPID, T4, TSH, CMP #### [facility] [address] [place] [address] Dr. Rena Barone Eosinophils/100 WBC (Bld) 2.0 % Normal 0.9-7.0 [facility] Comment on above: Performed By: #### L IPID, T4, TSH, CMP #### [facility] [address] [place] [address] Dr. Rena Barone Erythrocyte distribution width (RBC) [Ratio] 12.9 % Normal 11.0-15.0 [facility] Comment on above: Performed By: #### L IPID, T4, TSH, CMP #### [facility] [address] [place] [address] Dr. Rena Barone Hematocrit (Bld) [Volume fraction] 38.1 % Critically low 42.0-54.0 [facility] Comment on above: Performed By: #### L IPID, T4, TSH, CMP #### [facility] [address] [place] [address] Dr. Rena Barone Hemoglobin (Bld) [Mass/Vol] 12.5 g/dL Critically low 14.0-18.0 [facility] Comment on above: Performed By: #### L IPID, T4, TSH, CMP #### [facility] [address] [place] [address] Dr. Rena Barone IG # 0.03 10e3/ul Normal 0.00-0.03 [facility] Comment on above: Performed By: #### L IPID, T4, TSH, CMP #### [facility] [address] [place] [address] Dr. Rena Barone IG % 0.3 % Normal 0.0-0.5 [facility] Comment on above: Performed By: #### L IPID, T4, TSH, CMP #### [facility] [address] [place] [address] Dr. Rena Barone LYMPH # 1.8 103/ul Normal 1.2-3.8 [facility] Comment on above: Performed By: #### L IPID, T4, TSH, CMP #### [facility] [address] [place] [address] Dr. Rena Barone Lymphocytes/100 WBC (Bld) 18.9 % Critically low 20.5-60.0 [facility] Comment on above: Performed By: #### L IPID, T4, TSH, CMP #### [facility] [address] [place] [address] Dr. Rena Barone MANUAL DIFF REQ NO Normal [facility] Comment on above: Performed By: #### L IPID, T4, TSH, CMP #### [facility] [address] [place] [address] Dr. Rena Barone MCH (RBC) [Entitic mass] 33.3 pg Normal 25.9-34.0 [facility] Comment on above: Performed By: #### L IPID, T4, TSH, CMP #### [facility] [address] [place] [address] Dr. Rena Barone MCHC (RBC) [Mass/Vol] 32.8 g/dL Normal 29.9-35.2 [facility] Comment on above: Performed By: #### L IPID, T4, TSH, CMP #### [facility] [address] [place] [address] Dr. Rena Barone MCV (RBC) [Entitic vol] 101.6 fL Critically high 80.0-94.0 [facility] Comment on above: Performed By: #### L IPID, T4, TSH, CMP #### [facility] [address] [place] [address] Dr. Rena Barone MONO # 0.8 103/ul Normal 0.3-0.8 [facility] Comment on above: Performed By: #### L IPID, T4, TSH, CMP #### [facility] [address] [place] [address] Dr. Rena Barone Monocytes/100 WBC (Bld) 9.0 % Normal 1.7-12.0 [facility] Comment on above: Performed By: #### L IPID, T4, TSH, CMP #### [facility] [address] [address] [address] Rena Barone NEUT # 6.5 103/ul Normal 1.4-6.5 [facility] Comment on above: Performed By: #### L IPID, T4, TSH, CMP #### [facility] [address] [address] [address] Rena Barone Neutrophils/100 WBC (Bld) 69.5 % Normal 43.0-75.0 [facility] Comment on above: Performed By: #### L IPID, T4, TSH, CMP #### [facility] [address] [address] [address] Rena Barone Platelet mean volume (Bld) [Entitic vol] 12.0 fL Normal 9.5-13.5 [facility] Comment on above: Performed By: #### L IPID, T4, TSH, CMP #### [facility] [address] [address] [address] Rena Barone PLT 166 103/ul Normal 150-450 [facility] Comment on above: Performed By: #### L IPID, T4, TSH, CMP #### [facility] [address] [address] [address] Rena Barone RBC 3.75 106/ul Critically low 4.70-6.10 [facility] Comment on above: Performed By: #### L IPID, T4, TSH, CMP #### [facility] [address] [address] [address] Rena Barone WBC 9.3 103/ul Normal 4.0-11.0 [facility] Comment on above: Performed By: #### L IPID, T4, TSH, CMP #### [facility] [address] [address] [address] Rena Barone LIPID PROFILEon 02-26-2022 CHOL-HDL RATIO NORM SEE BELOW Normal [facility] Comment on above: Result Comment: 3.3 - 4.4 LOW RISK 4.4 - 7.1 AVERAGE RISK 7.1 - 11.0 MODERATE RISK >11.0 HIGH RISK Performed By: #### L IPID, T4, TSH, CMP #### [facility] [address] [address] [address] Rena Barone Cholesterol [Mass/Vol] 133 mg/dL Normal <=200 [facility] Comment on above: Performed By: #### L IPID, T4, TSH, CMP #### [facility] [address] [address] [address] Rena Barone Cholesterol in HDL [Mass/Vol] 29 mg/dL Critically low 40-60 [facility] Comment on above: Performed By: #### L IPID, T4, TSH, CMP #### [facility] [address] [address] [address] Rena Barone Cholesterol in LDL [Mass/Vol] 66.8 mg/dL Normal [facility] Comment on above: Performed By: #### L IPID, T4, TSH, CMP #### [facility] [address] [place] [address] Dr. Rena Barone Cholesterol.total/C holesterol in HDL [Mass ratio] 4.6 {ratio} Normal [facility] Comment on above: Performed By: #### L IPID, T4, TSH, CMP #### [facility] [address] [address] [address] Rena Barone HDL NORMAL > or = 60 mg/dl - LO W CARDIOVASCULAR RISK <40 mg/dl - HIGH CARDIOVASCULAR RISK Normal [facility] Comment on above: Performed By: #### L IPID, T4, TSH, CMP #### [facility] [address] [address] [address] Rena Barone LDL CALC NORMAL SEE BELOW Normal [facility] Comment on above: Result Comment: <100 mg/dl OPTIMAL 100 - 129 mg/dl NEAR OR ABOVE OPTIMAL 130 - 159 mg/dl BORDERLINE HIGH 160 - 189 mg/dl HIGH >190 mg/dl VERY HIGH Performed By: #### L IPID, T4, TSH, CMP #### [facility] [address] [address] [address] Rena Barone Triglyceride [Mass/Vol] 186 mg/dL Critically high <=150 [facility] Comment on above: Performed By: #### L IPID, T4, TSH, CMP #### [facility] [address] [address] [address] Rena Barone VLDL CALC 37.2 mg/dL Normal [facility] Comment on above: Performed By: #### L IPID, T4, TSH, CMP #### [facility] [address] [place] [address] Dr. Rena Barone PROF 14(COMP METB)on 022 Albumin [Mass/Vol] 3.8 g/dL Normal 3.4-5.0 [facility] Comment on above: Performed By: #### L IPID, T4, TSH, CMP #### [facility] [address] [address] [address] Rena Barone Albumin/Globulin [Mass ratio] 1.0 {ratio} Normal [facility] Comment on above: Performed By: #### L IPID, T4, TSH, CMP #### [facility] [address] [place] [address] Dr. Rena Barone ALP [Catalytic activity/Vol] 83 U/L Normal 46-116 [facility] Comment on above: Performed By: #### L IPID, T4, TSH, CMP #### [facility] [address] [place] [address] Dr. Rena Barone ALT [Catalytic activity/Vol] 28 U/L Normal 16-63 [facility] Comment on above: Performed By: #### L IPID, T4, TSH, CMP #### [facility] [address] [place] [address] Dr. Rena Barone Anion gap [Moles/Vol] 15.9 mmol/L Normal [facility] Comment on above: Performed By: #### L IPID, T4, TSH, CMP #### [facility] [address] [place] [address] Dr. Rena Barone AST [Catalytic activity/Vol] 16 U/L Normal 15-37 [facility] Comment on above: Performed By: #### L IPID, T4, TSH, CMP #### [facility] [address] [place] [address] Dr. Rena Barone Bilirubin [Mass/Vol] 0.6 mg/dL Normal 0.2-1.0 [facility] Comment on above: Performed By: #### L IPID, T4, TSH, CMP #### [facility] [address] [place] [address] Dr. Rena Barone Calcium [Mass/Vol] 8.9 mg/dL Normal 8.5-10.1 [facility] Comment on above: Performed By: #### L IPID, T4, TSH, CMP #### [facility] [address] [place] [address] Dr. Rena Barone Chloride [Moles/Vol] 101 mmol/L Normal 98-107 [facility] Comment on above: Performed By: #### L IPID, T4, TSH, CMP #### [facility] [address] [place] [address] Dr. Rena Barone CO2 [Moles/Vol] 24.4 mmol/L Normal 21.0-32.0 [facility] Comment on above: Performed By: #### L IPID, T4, TSH, CMP #### [facility] [address] [place] [address] Dr. Rena Barone Creatinine [Mass/Vol] 1.09 mg/dL Normal 0.70-1.30 [facility] Comment on above: Performed By: #### L IPID, T4, TSH, CMP #### [facility] [address] [place] [address] Dr. Rena Barone EGFR-AF ECUADOREAN >60 Normal >=60 The [facility] Comment on above: Performed By: #### L IPID, T4, TSH, CMP #### [facility] [address] [place] [address] Dr. Rena Barone EGFR-NON AF ECUADOREAN >60 Normal >=60 [facility] Comment on above: Performed By: #### L IPID, T4, TSH, CMP #### [facility] [address] [place] [address] Dr. Rena Barone Globulin (S) [Mass/Vol] 3.8 g/dL Normal [facility] Comment on above: Performed By: #### L IPID, T4, TSH, CMP #### [facility] [address] [address] [address] Rena Barone Glucose [Mass/Vol] 130 mg/dL Critically high 74-106 [facility] Comment on above: Performed By: #### L IPID, T4, TSH, CMP #### [facility] [address] [place] [address] Dr. Rena Barone Potassium [Moles/Vol] 4.3 mmol/L Normal 3.5-5.1 [facility] Comment on above: Performed By: #### L IPID, T4, TSH, CMP #### [facility] [address] [place] [address] Dr. Rena Barone Protein [Mass/Vol] 7.6 g/dL Normal 6.4-8.2 [facility] Comment on above: Performed By: #### L IPID, T4, TSH, CMP #### [facility] [address] [place] [address] Dr. Rena Barone Sodium [Moles/Vol] 137 mmol/L Normal 136-145 [facility] Comment on above: Performed By: #### L IPID, T4, TSH, CMP #### [facility] [address] [place] [address] Dr. Rena Barone Urea nitrogen [Mass/Vol] 26.0 mg/dL Critically high 7.0-18.0 [facility] Comment on above: Performed By: #### L IPID, T4, TSH, CMP #### [facility] [address] [place] [address] Dr. Rena Barone Urea nitrogen/Creatinine [Mass ratio] 23.9 mg/mg Normal [facility] Comment on above: Performed By: #### L IPID, T4, TSH, CMP #### [facility] [address] [place] [address] Dr. Rena Barone T4on 02-26-2022 T4 [Mass/Vol] 4.20 ug/dL Critically low 4.50-12.10 [facility] Comment on above: Performed By: #### L IPID, T4, TSH, CMP #### [facility] [address] [address] [address] Rena Barone TSHon 02-26-2022 TSH 3.428 uIU/mL Normal 0.358-3.740 [facility] Comment on above: Performed By: #### L IPID, T4, TSH, CMP #### [facility] [address] [address] [address] Rena Barone TSH RANGE SEE BELOW Normal [facility] Comment on above: Result Comment: <0.3 4 UIU/ml HYPERTHYROID 0.34-5.60 UIU/ml EUTHYROID >5.60 UIU/ml HYPOTHYROID Performed By: #### L IPID, T4, TSH, CMP #### [facility] [address] [address] [address] Rena Barone Vital Signs Date Time Vital Sign Value Performing Clinician Facility 01-07-2025 10:34-0400 Body height 177.8 cm [facility] 01-07-2025 10:34-0400 Body mass index (BMI) [Ratio] 46.3 kg/m2 [facility] 01-07-2025 10:34-0400 Body weight 146.51 kg [facility] 01-07-2025 10:34-0400 Diastolic blood pressure 84 mm[Hg] [facility] 01-07-2025 10:34-0400 Heart rate 77 /min [facility] 01-07-2025 10:34-0400 Respiratory rate 12 /min [facility] 01-07-2025 10:34-0400 SaO2% (BldA) [Mass fraction] 98 % [facility] 01-07-2025 10:34-0400 Systolic blood pressure 137 mm[Hg] [facility] 11-26-2024 08:59-0500 Body height 177.8 cm [facility] 11-26-2024 08:59-0500 Body mass index (BMI) [Ratio] 46.3 kg/m2 [facility] 11-26-2024 08:59-0500 Body weight 146.51 kg [facility] 11-26-2024 08:59-0500 Diastolic blood pressure 79 mm[Hg] [facility] 11-26-2024 08:59-0500 Heart rate 76 /min [facility] 11-26-2024 08:59-0500 SaO2% (BldA) [Mass fraction] 97 % [facility] 11-26-2024 08:59-0500 Systolic blood pressure 122 mm[Hg] [facility] 11-12-2024 08:56-0500 Body height 177.8 cm [facility] 11-12-2024 08:56-0500 Body mass index (BMI) [Ratio] 45.5 kg/m2 [facility] 11-12-2024 08:56-0500 Body weight 143.84 kg [facility] 11-12-2024 08:56-0500 Diastolic blood pressure 78 mm[Hg] [facility] 11-12-2024 08:56-0500 Heart rate 83 /min [facility] 11-12-2024 08:56-0500 Respiratory rate 12 /min [facility] 11-12-2024 08:56-0500 SaO2% (BldA) [Mass fraction] 97 % [facility] 11-12-2024 08:56-0500 Systolic blood pressure 112 mm[Hg] [facility] 09-20-2024 14:32-0500 Body height 177.8 cm [facility] 09-20-2024 14:32-0500 Body mass index (BMI) [Ratio] 46.7 kg/m2 [facility] 09-20-2024 14:32-0500 Body weight 147.64 kg [facility] 09-20-2024 14:32-0500 Diastolic blood pressure 81 mm[Hg] [facility] [facility] 09-20-2024 14:32-0500 Heart rate 69 /min [facility] 09-20-2024 14:32-0500 Respiratory rate 16 /min [facility] 09-20-2024 14:32-0500 Systolic blood pressure 122 mm[Hg] [facility] 07-16-2024 09:00-0400 Body mass index (BMI) [Ratio] 45.3 kg/m2 [facility] 07-16-2024 09:00-0400 Diastolic blood pressure 69 mm[Hg] [facility] 07-16-2024 09:00-0400 Heart rate 75 /min [facility] 07-16-2024 09:00-0400 Systolic blood pressure 108 mm[Hg] [facility] 07-13-2024 22:16-0400 Body height 177.8 cm [facility] 07-13-2024 22:16-0400 Body weight 143.33 kg [facility] 03-12-2024 09:46-0400 Body height 177.8 cm [facility] 03-12-2024 09:46-0400 Body mass index (BMI) [Ratio] 45.3 kg/m2 [facility] 03-12-2024 09:46-0400 Body weight 143.5 kg [facility] 03-12-2024 09:46-0400 Diastolic blood pressure 69 mm[Hg] [facility] 03-12-2024 09:46-0400 Heart rate 80 /min [facility] 03-12-2024 09:46-0400 Respiratory rate 16 /min [facility] 03-12-2024 09:46-0400 Systolic blood pressure 107 mm[Hg] [facility] 11-07-2023 09:00-0500 Body height 177.8 cm Delonte Ball Other [facility] Other 11-07-2023 09:00-0500 Body mass index (BMI) [Ratio] 45.11 kg/m2 Delonte Ball Other [email or web address] [facility] Other 11-07-2023 09:00-0500 Body weight 142.61 kg Delonte Ball Other [email or web address] [facility] Other 11-07-2023 09:00-0500 Diastolic blood pressure 86 mm[Hg] Delonte Ball Other [email or web address] [facility] Other 11-07-2023 09:00-0500 Respiratory rate 16 /min Delonte Ball Other [facility] Other 11-07-2023 09:00-0500 Systolic blood pressure 131 mm[Hg] Delonte Ball Other [facility] Other 07-25-2023 09:00-0400 Body height 177.8 cm Delonte Ball Other [facility] Other 07-25-2023 09:00-0400 Body mass index (BMI) [Ratio] 46.54 kg/m2 Delonte Ball Other [facility] Other 07-25-2023 09:00-0400 Body weight 147.15 kg Delonte Ball Other [facility] Other 07-25-2023 09:00-0400 Diastolic blood pressure 83 mm[Hg] Delonte Ball Other [facility] Other 07-25-2023 09:00-0400 Respiratory rate 16 /min Delonte Ball Other [facility] Other 07-25-2023 09:00-0400 Systolic blood pressure 130 mm[Hg] Delonte Ball Other [facility] Other 06-05-2023 11:25-0400 Body height 177.8 cm Bonny Raymundo Other [facility] Other 06-05-2023 11:25-0400 Body mass index (BMI) [Ratio] 46.48 kg/m2 Bonny Raymundo Other [facility] Other 06-05-2023 11:25-0400 Body temperature 98.2 [degF] Bonny Raymundo Other [facility] Other 06-05-2023 11:25-0400 Body weight 146.97 kg Bonny Raymundo Other [facility] Other 06-05-2023 11:25-0400 Diastolic blood pressure 61 mm[Hg] Bonny Raymundo Other [facility] Other 06-05-2023 11:25-0400 Respiratory rate 18 /min Bonny Raymundo Other [facility] Other 06-05-2023 11:25-0400 SaO2% (BldA) [Mass fraction] 97 % Bonny Raymundo Other [facility] Other 06-05-2023 11:25-0400 Systolic blood pressure 109 mm[Hg] Bonny Raymundo Other [facility] Other 02-14-2023 11:00-0400 Body height 177.8 cm Bonny Raymundo Other [facility] Other 02-14-2023 11:00-0400 Body mass index (BMI) [Ratio] 47.06 kg/m2 Bonny Raymundo Other [facility] Other 02-14-2023 11:00-0400 Body temperature 98 [degF] Bonyn Raymundo Other [facility] Other 02-14-2023 11:00-0400 Body weight 148.78 kg Bonny Raymundo Other [facility] Other 02-14-2023 11:00-0400 Diastolic blood pressure 73 mm[Hg] Bonny Raymundo Other [facility] Other 02-14-2023 11:00-0400 Respiratory rate 18 /min Bonny Zackary Other [facility] Other 02-14-2023 11:00-0400 SaO2% (BldA) [Mass fraction] 96 % Bonny Raymundo Other [facility] Other 02-14-2023 11:00-0400 Systolic blood pressure 130 mm[Hg] Bonny Zackary Other [facility] Other 01-09-2023 12:30-0400 Body height 177.8 cm Delonte Ball Other [facility] Other 01-09-2023 12:30-0400 Body mass index (BMI) [Ratio] 48.18 kg/m2 Delonte Ball Other [facility] Other 01-09-2023 12:30-0400 Body weight 152.32 kg Delonte Ball Other [facility] Other 01-09-2023 12:30-0400 Diastolic blood pressure 78 mm[Hg] Delonte Ball Other [facility] Other 01-09-2023 12:30-0400 Respiratory rate 16 /min Delonte Ball Other [facility] Other 01-09-2023 12:30-0400 Systolic blood pressure 124 mm[Hg] Delonte Ball Other [facility] Other 11-01-2022 11:00-0500 Body height 177.8 cm Delonte Ball Other [facility] Other 11-01-2022 11:00-0500 Body mass index (BMI) [Ratio] 48.58 kg/m2 Delonte Ball Other [employer] [facility] Other 11-01-2022 11:00-0500 Body weight 153.59 kg Delonte Ball Other [facility] Other 11-01-2022 11:00-0500 Diastolic blood pressure 76 mm[Hg] Delonte Ball Other [facility] Other 11-01-2022 11:00-0500 Respiratory rate 16 /min Delonte Ball Other [facility] Other 11-01-2022 11:00-0500 Systolic blood pressure 122 mm[Hg] Delonte Ball Other [facility] Other 10-07-2022 10:20-0500 Diastolic blood pressure 68 mm[Hg] DO Delonte Ball Work Phone: [facility] 10-07-2022 10:20-0500 Heart rate 93 /min DO Delonte Ball Work Phone: [facility] 10-07-2022 10:20-0500 Respiratory rate 16 /min DO Delonte Ball Work Phone: [facility] 10-07-2022 10:20-0500 SaO2% (BldA) [Mass fraction] 98 % DO Delonte Ball Work Phone: [facility] 10-07-2022 10:20-0500 Systolic blood pressure 114 mm[Hg] DO Delonte Ball Work Phone: [facility] 10-07-2022 08:37-0500 Body height 176.53 cm DO Delonte Ball Work Phone: [facility] 10-07-2022 08:37-0500 Body temperature 98.7 [degF] DO Delonte Ball Work Phone: [facility] 10-07-2022 08:37-0500 Body weight 147.41 kg DO Delonte Ball Work Phone: [facility] 05-19-2022 12:40-0400 Body height 177.8 cm Bonny Raymundo Other [facility] Other 05-19-2022 12:40-0400 Body mass index (BMI) [Ratio] 45.91 kg/m2 Bonny Raymundo Other [facility] Other 05-19-2022 12:40-0400 Body temperature 100.6 [degF] Bonny Raymundo Other [facility] Other 05-19-2022 12:40-0400 Body weight 145.15 kg Bonny Raymundo Other [facility] Other 05-19-2022 12:40-0400 SaO2% (BldA) [Mass fraction] 98 % Bonny Raymundo Other [facility] Other 08-12-2021 12:30-0400 Body temperature 98.2 [degF] Bonny Ginty Other [facility] Other 08-12-2021 12:30-0400 SaO2% (BldA) [Mass fraction] 92 % Bonny Ginty Other [facility] Other Encounters Encounter Date Encounter Type Care Provider Facility Start: 01-25-2025 End: 01-25-2025 ambulatory [facility] Start: 01-07-2025 End: 01-07-2025 ambulatory [facility] Work Phone: Start: 01-07-2025 End: 01-07-2025 Patient encounter procedure [facility] Work Phone: Start: 01-05-2025 Non-patient / Non-visit [facility] Work Phone: Start: 12-28-2024 End: 12-28-2024 ambulatory KINA MCQUEEN Not Available Start: 12-24-2024 End: 12-24-2024 ambulatory JOSEPHINE ELENA Not Available Start: 12-15-2024 ambulatory [facility] Work Phone: Start: 12-15-2024 Non-patient / Non-visit [facility] Work Phone: Start: 11-30-2024 End: 11-30-2024 ambulatory [facility] Start: 11-26-2024 End: 11-26-2024 ambulatory [facility] Work Phone: Start: 11-26-2024 End: 11-26-2024 Patient encounter procedure [facility] Work Phone: Start: 11-12-2024 End: 11-12-2024 ambulatory [facility] Work Phone: Start: 11-12-2024 End: 11-12-2024 Encounter for general adult medical examination without abnormal findings 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 [facility] Start: 10-25-2024 Non-patient / Non-visit [facility] Work Phone: Start: 09-29-2024 End: 09-29-2024 ambulatory [facility] Start: 09-27-2024 Non-patient / Non-visit [facility] Work Phone: Start: 09-20-2024 End: 09-20-2024 Patient encounter procedure [facility] Work Phone: Start: 09-17-2024 Non-patient / Non-visit [facility] Work Phone: Start: 09-14-2024 Non-patient / Non-visit [facility] Work Phone: Start: 09-10-2024 Evaluation and management of [facility] Start[facility] 09-09-2024 Evaluation and management of inpatient [facility] Start: 09-09-2024 Evaluation and management of inpatient [facility] Start: 09-09-2024 ambulatory [facility] Start: 09-09-2024 End: 09-12-2024 Evaluation and management of inpatient [facility] Start: 09-07-2024 ambulatory [facility] Start: 07-27-2024 End: 07-27-2024 ambulatory [facility] Start: 07-16-2024 End: 07-16-2024 ambulatory [facility] Work Phone: Start: 07-16-2024 End: 07-16-2024 Patient encounter procedure [facility] Work Phone: Start: 06-23-2024 Non-patient / Non-visit [facility] Work Phone: Start: 04-21-2024 End: 04-21-2024 ambulatory LACHO LACY [facility] Start: 03-24-2024 ambulatory [facility] Start: 03-24-2024 End: 03-24-2024 ambulatory [facility] Start: 03-12-2024 End: 03-12-2024 ambulatory [facility] Work Phone: Start: 03-12-2024 End: 03-12-2024 Patient encounter procedure [facility] Work Phone: Start: 12-18-2023 Non-patient / Non-visit [facility] Work Phone: Start: 11-07-2023 End: 11-07-2023 ambulatory Delonte Tejeda Other [facility] Other Start: 11-07-2023 Encounter for genera l adult medical examination without abnormal findings Delonte Tejeda [facility] Start: 11-07-2023 Periodic preventive med est patient 40-64yrs Delonte Tejeda [facility] Start: 10-18-2023 End: 10-18-2023 ambulatory Bonny Raymundo Other [facility] Other Start: 10-18-2023 Telephone encounter Bonny Raymundo [facility] Start: 10-17-2023 Telephone encounter Delonte BURDICK [facility] Start: 10-17-2023 End: 10-17-2023 ambulatory DO Delonte Tejeda Work Phone: [facility] Other Start: 10-17-2023 End: 10-17-2023 Patient encounter procedure DO Delonte Tejeda Work Phone: [facility] Work Phone: Start: 10-09-2023 End: 10-09-2023 ambulatory Delonte Tejeda Other [facility] Other Start: 10-09-2023 Telephone encounter Delonte BURDICK [facility] Start: 07-25-2023 End: 07-25-2023 ambulatory Delonte Tejeda Other [facility] Other Start: 07-25-2023 Office outpatient visit 25 minutes Delonte Tejeda [facility] Start: 07-21-2023 End: 07-21-2023 ambulatory Bonny Raymundo Other [facility] Other Start: 07-21-2023 Telephone encounter Bonny Raymundo [facility] Start: 07-11-2023 End: 07-11-2023 ambulatory Delonte Tejeda Other [facility] Other Start: 07-11-2023 Telephone encounter Delonte Tejeda [facility] Start: 06-06-2023 End: 06-06-2023 ambulatory Delonte Tejeda Other [facility] Other Start: 06-06-2023 Telephone encounter [facility] Start: 06-05-2023 Office outpatient visit 15 minutes Bonny Raymundo [facility] Start: 06-05-2023 Telephone encounter Delonte Tejeda [facility] Start: 06-05-2023 End: 06-05-2023 ambulatory DO Delonte Tejeda Work Phone: [facility] Other Start: 06-05-2023 End: 06-05-2023 Patient encounter procedure DO Delonte Tejeda Work Phone: [facility] Work Phone: Start: 04-18-2023 End: 04-18-2023 ambulatory Delonte Tejeda Other [facility] Other Start: 04-18-2023 Telephone encounter Delonte Tejeda [facility] Start: 04-14-2023 End: 04-14-2023 ambulatory Delonte Geovani Other [facility] Other Start: 04-14-2023 Telephone encounter Delonte Geovani [facility] Start: 02-21-2023 End: 02-22-[address] DELONTE TEJEDA Facility: Start: 02-18-2023 End: 02-18-2023 ambulatory Delonte Tejeda Other [facility] Other Start: 02-18-2023 Telephone encounter Delonte BURDICK [facility] Start: 02-14-2023 End: 02-14-2023 ambulatory Bonny Raymundo Other [facility] Other Start: 02-14-2023 Office outpatient visit 25 minutes Bonny Raymundo [facility] Start: 01-29-2023 End: 01-29-2023 ambulatory Delonte Tejeda Other [facility] Other Start: 01-29-2023 Telephone encounter Delonte Tejeda [facility] Start: 01-20-2023 End: 01-20-2023 ambulatory Delonte Tejeda Other [facility] Other Start: 01-20-2023 Telephone encounter Delonte Tejeda [facility] Start: 01-09-2023 End: 01-09-2023 ambulatory Delonte Tejeda Other [facility] Other Start: 01-09-2023 Office outpatient visit 25 minutes Delonte Tejeda [facility] Start: 12-24-2022 End: 12-24-2022 ambulatory Delonte Tejeda Other [facility] Other Start: 12-24-2022 Telephone encounter Delonte Tejeda [facility] Start: 12-06-2022 End: 12-07-[address] NONE LISTED REQUEST Facility:[facility] Start: 11-29-2022 End: 11-30-[address] NONE LISTED REQUEST Facility:[facility] Start: 11-25-2022 End: 11-25-2022 ambulatory Delonte Tejeda Other [facility] Other Start: 11-25-2022 Telephone encounter Delonte Tejeda [facility] Start: 11-01-2022 End: 11-01-2022 ambulatory Delonte Tejeda Other [facility] Other Start: 11-01-2022 Encounter for genera l adult medical examination without abnormal findings Delonte Geovani [facility] Start: 11-01-2022 Patient encounter procedure Delonte Tejeda [facility] Start: 11-01-2022 Periodic preventive med est patient 40-64yrs Delonte Tejeda [facility] Start: 10-18-2022 End: 10-18-2022 ambulatory Bonny Raymundo Other [facility] Other Start: 10-18-2022 Telephone encounter Bonny Raymundo [facility] Start: 10-07-2022 End: 10-07-2022 Admission to same day surgery center DO Delonte Tejeda Work Phone: [facility] Start: 10-07-2022 End: 10-07-2022 ambulatory DO Delonte Geovani Work Phone: [facility] Work Phone: Start: 07-30-2022 End: 07-31-2022 ambulatory NONE LISTED REQUEST Facility:[facility] Start: 07-12-2022 ambulatory Malik MOLINA Facility :[facility] Start: 06-04-2022 End: 06-05-[address] DELONTE TEJEDA Facility:[facility] Start: 05-19-2022 End: 05-19-2022 ambulatory Bonny Raymundo Other [facility] Other Start: 05-19-2022 Office outpatient visit 25 minutes Bonny Raymundo [facility] Start: 05-01-2022 End: 05-02-[address] DELONTE TEJEDA Facility:[facility] Start: 03-15-2022 End: 03-16-[address] DELONTE TEJEDA Facility:[facility] Start: 03-14-2022 End: 03-15-2022 ambulatory NONE LISTED REQUEST Facility:[facility] Start: 02-26-2022 End: 02-27-[address] DELONTE TEJEDA Facility:[facility] Start: 09-07-2021 Adult health examination Bonny Raymundo Other [facility] Other Start: 08-12-2021 End: 08-12-2021 ambulatory Bonny Sr Other [facility] Other Start: 08-12-2021 Office outpatient visit 15 minutes Bonny Wyattrenetta [facility] Procedures Date Procedure Procedure Detail Performing Clinician Start: 06-05-2023 Plain X-ray of left hip DO Delonte Tejeda Work Phone: Start: 02-21-[address] RAYA TEJEDA Comment on above: Performed By: #### P SASC #### [facility] [address] [address] [address] Rena Barone Start: 10-07-2022 Colonoscopy DO Anjali Tejeda Work Phone: Start: 02-26-[address] RAYA TEJEDA Comment on above: Performed By: #### L IPID, T4, TSH, CMP #### [facility] [address] [address] [address] Rena Barone Start: 05-20-2016 General examination of patient Bonny Raymundo Other Start: 01-04-2016 Screening for malign ant neoplasm of colon Bonny Raymundo Other Plan of Treatment Date Care Activity Detail Author Start: 12-15-2024 Patient referral [facility] Work Phone: Start: 10-07-[address] [facility] Patient Education Colon Polyps [facility] Work Phone: Patient referral [facility] Work Phone: [facility] Immunizations Immunization Date Immunization Notes Care Provider Fa cility 08-19-2022 COVID-19 Pfizer (bivalent) Bonny Raymundo Other [facility] 08-19-2022 COVID-19 Pfizer (Pediatric) Bonny Raymundo Other [facility] 08-19-2022 influenza virus vaccine, split virus (incl. purified surface antigen) Bonny Raymundo Other [facility] Other 08-19-2022 influenza virus vaccine, unspecified formulation [facility] 08-19-2022 influenza, injectabl e, quadrivalent, preservative free Bonny Raymundo Other [facility] 02-09-2022 COVID-19 Pfizer Bonny Raymundo Other [facility] 02-09-2022 COVID-19 Vaccine Pfi zer - Documentation Purposes Only Bonny Raymundo Other [facility] 08-06-2021 COVID-19 Vaccine Pfi zer - Documentation Purposes Only Bonny Raymundo Other [facility] 08-06-2021 influenza virus vaccine, split virus (incl. purified surface antigen) Bonny Raymundo Other [facility] Other 08-06-2021 influenza virus vaccine, unspecified formulation [facility] 01-20-2021 COVID-19 mRNA, Comirnaty (Pfizer) DO Naartjie Work Phone: [facility] 12-30-2020 COVID-19 mRNA, Comirnaty (Pfizer) DO Naartjie Work Phone: [facility] 07-26-2020 influenza virus vaccine, split virus (incl. purified surface antigen) Bonny Raymundo Other [facility] Other 07-26-2020 influenza virus vaccine, unspecified formulation [facility] 09-06-2017 tetanus and diphther ia toxoids, adsorbed, preservative free, for adult use (5 Lf of tetanus toxoid and 2 Lf of diphtheria toxoid) Bonny Raymundo Other [facility] Payers Date Payer Category Payer Medicare [id number] 2024 Medicare [id number] 2024 Unknown [id number] 1959 Unknown [id number] 2.16.8 [id number] 1959 Unknown [id number] 2.16.84 [id number] 1959 Unknown [id number] 2.16.84 [id number] 1959 Unknown [id number] 2.16.84 [id number] 1959 Unknown [id number] .16.84 [id number] 1959 Unknown [id number] 2.16.84 [id number] 1959 Self-pay [id number] 1960 Self-pay [id number] 1960 Unknown [id number] 2. [id number] Medicare Medicare [id number] Unknown [id number] 2.16.84 [id number] Unknown [id number] 2.16.84 [id number] Unknown [id number] 2.16.84 [id number] Unknown [id number] 2.16.84 [id number] Unknown [id number] 2.16.84 [id number] Unknown [id number] 2.16.84 [id number] Unknown [id number] 2.16.8 [id number] Unknown [id number] 2.16.8 [id number] Unknown [facility] Health Claims [id number] Social History Date Type Detail Facility Sex Assigned At [email or web address] [facility] Start: 10-07-2022 End: 10-07-2022 Tobacco smoking status [facility] Current some day smoker [facility] Start: 1960 Sex Assigned At Male F [facility] Start: 12-18-2023 End: 12-18-2023 Tobacco smoking status FLIS Ex-smoker (finding) [facility] Start: 11-12-2024 End: 01-07-2025 Sex Male (finding) [facility] Goals Date Patient Goal Desired Activity /State Clinical Notes 08-12-2021 to 01-25-2025 Note Date & Type Note Facility 01-25-2025 Note [facility] Consult Note Reason for visit: persistent AF 01/25/25 Pt was referred for Afib. He has not lost any weight . Last ECHO on 01/20/25 reveals normal EF He admits to overeating anf not being compliant with calorie restriction. 07/27/24 Pt is here for a three month follow up. Pt denies chest pain, sob, dizziness. Patient underwent cardioversion on 03/24/2024 and was noted to have recurrence of atrial fibrillation when seen on 04/21/2024 by Mirella Lacy. He was still taking amiodarone at that time. Prior HPI: Salomón Rush is a 64 y.o. year old with past medical history [...] any shortness of breath, chest pain, fatigue. [id number] at least 2 for hypertension, DM 2, takes Xarelto 20 mg daily he was seen by Tenzin PRATT and at that time 14-day event [...] Determinants of Health Tobacco Use: High Risk (01/25/2025) Patient History Smoking Tobacco Use: Some Days [...] Sexually Abused: No Depression: Not at risk (11/10/2024) PHQ-2 PHQ-2 Score: 0 Housing Stability: Low Risk (09/09/2024) Housing Stability Vital Sign Unable to Pay for Housing in the Last Year: No Number of Times Moved in the Last Year: Not on file Homeless in the Last Year: No Utilities: Not At Risk (09/09/2024) [facility] Utilities Threatened with loss of utilities: No Health Literacy: Not on file Allergies: No Known Allergies Weight: 147kg Visit Vitals BP 125/83 (BP Location: Left arm, Patient Position: Sitting) Pulse 69 Ht 1.778 m (5' 10 ) Wt (!) 147 kg (324 lb) SpO2 97% BMI 46.49 kg/m??? Smoking Status Some Days BSA 2.69 m??? Meds: Current Outpatient Medications on File Prior to Visit Medication Sig Dispense Refill allopurinol (Zyloprim) 300 mg tablet Take 150 mg by mouth in the morning. Taking 150 mg daily amiodarone (Pacerone) 200 mg tablet TAKE ONE TABLET DAILY 90 tablet 3 amLODIPine (Norvasc) 5 mg tablet Take 1 tablet by mouth in the morning. Basaglar KwikPen U-100 Insulin 100 unit/mL (3 mL) injection pen Inject 100 Units under the skin at bedtime. carvedilol (Coreg) 25 mg tablet Take 1.5 tablets, for 37.5mg , twice daily 270 tablet 3 coenzyme [id number]-[id number] E 100-5 mg-unit capsule Take 5 mg by mouth in the morning. furosemide (Lasix) 40 mg tablet Take 1 tablet by mouth every other day. Pt taking every other day lisinopril 40 mg tablet Take 40 mg by mouth in the morning. mecobalamin, vitamin B12, 1,000 mcg tablet,chewable Chew 1 mg in the morning. potassium chloride CR (Klor-Con M20) 20 mEq ER tablet Take 20 mEq by mouth in the morning. Do not crush or chew. pravastatin (Pravachol) 40 mg tablet Take 40 mg by mouth at bedtime. rivaroxaban (Xarelto) 20 mg tablet Take 1 tablet by mouth in th (more content not included)... [facility] 12-15-2024 Hospital Discharge instructions Ambulatory OrdersReferral to ENT Time Frame: 12/15/24, Location: None [facility] Work Phone: 11-30-2024 Note Patient here for fol low up DCCV performed on 10/27/[address] Fatima. States he went back into afib about 1 week s/p procedure. Denies chest pain, lightheadedness/syncope, and bleeding on Xarelto. SANTANA remains unchanged. Review of Systems Cardiovascular: Positive for dyspnea on exertion, irregular heartbeat and palpitations. All other systems reviewed and are negative. [facility] 11-30-2024 Note Cardiovascular Medic [facility] SUBJECTIVE Chief Complaint Patient presents with [...] Final QRS DURATIO (more content not included)... [facility] 11-12-2024 Evaluation note Diagnosis Onset Date Resolution Atrial fibrillation acute Janua ry 2024 8:49am Chronic kidney disease acute Ja nuary 2024 8:49am Hypertension acute October 8:49am Postoperative hemorrhage involving circulatory system following cardiac acute November 12, 2024 8:49am Screening PSA (prostate specific antigen) acute November 12, 2024 8:49am Type 2 diabetes mellitus with hyperglycemia acute November 12, 2024 8:49am Welcome to Medicare preventive visit noneactive November 12, 025 8:49am B12 deficiency acute November 262024 8:50am Obesity acute November 26, 2024 8:50am Decreased hearing of both ears noneactive November 26 8:50am Impacted cerumen of both ears noneactive November 26 8:50am [facility] Work Phone: 1(584) 478-295601-22-2025 NoteSubjective Patient ID: Salomón Rush is a 63 [...] the past 36 hour(s)). No follow-ups on file.[facility]01-22-2025 Note Subjective Patient ID: Salomón Rush is [...] elective A-fib ablation which was done in Nov with subsequent left groin hematoma negative for [...] 36.5 ???C (97.7 ???F (more content not included)...[facility]01-08-2025 NotePatient: Salomón Rush Procedure Information Date/Time: 10/27/24 1200 Procedure: Cardioversion - PC APPROVED Location: [facility] SQE HOLDING ROOM / [facility] (Cath) Providers: Felipe Fatima MD Clinical information reviewed: Tobacco Allergies Med Hx Surg Hx Fam Hx Soc Hx Physical Exam Airway Mallampati: II TM distance: >3 FB Neck ROM: full Cardiovascular Dental Pulmonary Abdominal Anesthesia Plan ASA 3 CSE Anesthetic plan and risks discussed with patient. Use of blood products discussed with patient who. [facility] Cardiovascular Medicine [facility] SUBJECTIVE Chief Complaint Patient presents with [...] (CMS/HCC) LUIS FELIPE (acute kidney injury) ([facility]/HCC) Anemia Past Medical History: Diagnosis Date Abnormal ECG Afib ([facility]/HCC) Arrhythmia Arthritis Atrial fibrillation ([facility]/HCC) Diabetes mellitus ([facility]/HCC) type 2 Hyperlipidemia Hypertension Joint pain Severe [...] General: Skin is w (more content not included)...[facility]12-11-2024 NotePatient here for follow up afib ablation. He developed hematoma s/p ablation and had vascular imaging the next day. He then presented to [facility] ED on 09/17 for worsening hematoma. [...] pain. All other systems reviewed and are negative.[facility] 09-20-2024 Evaluation note* Diagnosis Onset Date Resolution Status Admit Date Acute blood loss anemia acute D ec2023 2:22pm Atrial fibrillation acute Decem 2023 2:22pm Hypertension acute September 2:22pm Postoperative hemorrhage involving circulatory system following cardiac acute September 20, 2024 2:22pm Type 2 diabetes mellitus wit h hyperglycemia acute September 20 2:22pm Acute blood loss anemia acute J anuary 2024 8:49am Atrial fibrillation acute 2024 8:49am Hypertension acute October 8:49am Postoperative hemorrhage involving circulatory system following cardiac acute November 12, 2024 8:49am Screening PSA (prostate specific antigen) acute November 12, 2024 8:49am Type 2 diabetes mellitus wit h hyperglycemia acute November 12 8:49am [facility] Work Phone: 1(857) 260-621512-02-2024 Evaluation note* Diagnosis Onset Date Resolution Status Admit Date Acute blood loss anemia acute D ec2023 2:22pm Atrial fibrillation acute Dece2023 2:22pm Hypertension acute September 2:22pm Postoperative hemorrhage involving circulatory system following cardiac acute September 20, 2024 2:22pm Type 2 diabetes mellitus wit h hyperglycemia acute September 20 2:22pm Atrial fibrillation acute 2024 8:49am Chronic kidney disease acute Ja nuary 2024 8:49am Hypertension acute October 8:49am Postoperative hemorrhage involving circulatory system following cardiac acute November 12, 2024 8:49am Screening PSA (prostate specific antigen) acute November 12, 2024 8:49am Type 2 diabetes mellitus wit h hyperglycemia acute November 12 8:49am Welcome to Medicare preventive visit noneactive November 12 025 8:49am [facility] Work Phone: 1(634) 545-340612-02-2024 Evaluation note* Diagnosis Onset Date Resolution Status [...] Welcome to Medicare preventive visit noneactive November 12 025 8:49am B12 deficiency acute November 262024 8:50am Obesity acute November 26, 2024 8:50am Decreased hearing of both ears noneactive November 26 8:50am Impacted cerumen of both ears noneac tive November 26, 2024 8:50am [facility] Work Phone: 1(804) 239-970011-24-2024 NotePatient: Salomón Rush Procedure Summary Date: 09/09/24 Room / Location: [facility] SQE 1 / [facility] (Cath) Anesthesia Start: 1235 [...] per surgeon request over 10 mins from 14:30-14:40[facility]11-24-2024 Note Hospital Medicine Discharge Summary Final Discharge [...] Medications These medications were sent to [facility] - [address] [place] [address] [facility] [place] [address], [facility] [address] famotidine 20 mg tablet omeprazole 40 mg [...] was 60 minutes. Signed Shawn Garcia MD [facility] Medicine 09/12/2024 10:47 AM CC: Geovani [facility]11-24-2024 NoteCardiology Inpatient Progress Note Reason for consult: [...] Value Ventricular Rate 66 Atrial Rate 102 [place] Interval 176 QRS DURATION 102 QT Interval 484 QTC CALCULATION(BAZETT) [address] [place] 68 R[place] 92 T Wave [place] 64 Impression Sinus tachycardia with 2nd degree [...] ablation and confirmed block (more content not included)...[facility]11-24-2024 Note Subjective Patient with no acute overnight [...] Value Ventricular Rate 66 Atrial Rate 102 [place] Interval 176 QRS DURATION 102 QT Interval 484 QTC CALCULATION(BAZETT) [address] [place] 68 [place] 92 [address] [place] 64 Impression Sinus tachycardia with 2nd degree A-V block (Mobitz II) Right axis deviation Prolonged QT Abnormal ECG When compared with ECG of 09-SEP-2024 11:27, Sinus rhythm has replaced Atrial fibrillation Confirmed by Felipe Fatima (80) on 09/10/2024 8:48:31 AM Nutrition Screen Assessment Assessment & Plan Paroxysmal atrial fibrillation (CMS/HCC) Persistent atrial fibrillation (CMS/HCC) 63 yo/ M with recent cardiac cath through left INSURANCE ATTORNEY access, with post-op hematoma, no concern for [...] care of this patient Gabriela Abel MD [facility] NoteHospital Medicine Daily Progress Note - 09/11/2024 11:08 AM; Room: 3135/3135- Admission: 09/09/2024 9:55 AM; Length of stay: 2 days THE HOSPITALIST TEAM PREFERS TO USE [employer] FOR NON-URGENT COMMUNICATION 7AM-7PM. IF I DO NOT RESPOND WITHIN 20 MINUTES OR URGENT MATTERS, PLEASE CALL THROUGH THE NON CDL DRIVER. FROM 7PM-7AM, PLEASE PAGE [phone](COVR). Code Status: Full Code Barriers to Discharge: [...] , FREET4 , CORTISOL , FEV1 , KBY1QUG , DLCO , RVSP , HDL , LDL No results found for: QVEISPNY00 , IRON , TIBC , C3 , [...] occlusion. Reconstitution of monophas (more content not included)...[facility]11-23-2024 NoteSubjective Patient with no acute overnight events. [...] 09/11/24 0305 124/58 36.6 ???C (97.9 ???F) 68 23 98 % -- 09/11/24 0005 104/54 36.7 ???C (98.1 ???F) 58 17 99 % -- 09/10/24 2015 116/51 36.6 ???C (97.9 ???F) 63 19 98 % -- 09/10/24 1600 113/65 36.9 ???C (98.4 ???F) 63 16 96 % -- 09/10/24 1200 [...] Value Ventricular Rate 66 Atrial Rate 102 [place] Interval 176 QRS DURATION 102 QT Interval 484 QTC CALCULATION(BAZETT) [address] [place] 68 R[place] 92 T [address] [place] 64 Impression Sinus tachycardia with 2nd degree A-V block (Mobitz II) Right axis deviation Prolonged QT Abnormal ECG When compared with ECG of 09-SEP-2024 11:27, Sinus rhythm has replaced Atrial fibrillation Confirmed by Felipe Fatima (80) on 09/10/2024 8:48:31 AM Nutrition Screen Assessment Assessment & Plan Paroxysmal atrial fibrillation (CMS/HCC) Persistent atrial fibrillation (CMS/HCC) 63 yo/ M with recent cardiac cath through left INSURANCE ATTORNEY access, with post-op hematoma, no concern for [...] are as above. I agree with the findings.[facility]11-23-2024 Note Attestation signed by Donal Sainz MD [...] Felipe Fatima MD, 50 mg at 09/10/24 2159 glucose chewable tablet 24 g, 24 g, [...] Value Ventricular Rate 66 Atrial Rate 102 [place] Interval 176 QRS DURATION 102 QT Interval 484 QTC CALCULATION(BAZETT) [address] [place] 68 R[place] 92 T [address] [place] 64 Impression Sinus tachycardia with 2nd degree A-V block (Mobitz II) Right axis deviation Prolonged QT Abnormal ECG When compared with ECG of 09-SEP-2024 11:27, Sinus rhythm has repla (more content not included)...[facility] 09-10-2024 Note09/10/24 1522 Admission Assessment Questions Verify [...] Interested Does the patient have a case sealer assigned to them through their insurance? No [...] for patient to discharge home when medically ready.[facility]11-22-2024 NoteHospital Medicine Daily Progress Note - 09/10/2024 12:21 PM; Room: [facility]3135- Admission: 09/09/2024 9:55 AM; Length of stay: 1 days THE HOSPITALIST TEAM PREFERS TO USE [employer] FOR NON-URGENT COMMUNICATION 7AM-7PM. IF I DO NOT RESPOND WITHIN 20 MINUTES OR URGENT MATTERS, PLEASE CALL THROUGH THE NON CDL DRIVER. FROM 7PM-7AM, PLEASE PAGE [phone](COVR). Code Status: Full Code Barriers to Discharge: [...] Results from last 7 days Lab Units 09/09/24204109/09/24 1558 09/09/24 1115 POCT GLUCOSE mg/dL 162* 146* 126* Historical Values: (Includes values prior to this admission) No results found for: PREALBUMIN , TSH , T3FREE , FREET4 , CORTISOL , FEV1 , UQE7GNA , DLCO , RVSP , HDL , LDL No results found for: PKDGMGRA20 , IRON , TIBC , C3 , [...] external iliac arter (more content not included)... [facility]11-21-2024 Note Attestation signed by Felipe Fatima MD [...] and findings discussed with the vascular surgery aircraft quality control inspector and attending Dr Mcdonald. Plan discussed with the patient and nursing staff. Plan discussed with the attending physician, Dr. Fatima.[facility]11-21-2024 NoteATRIAL FIBRILLATION ABLATION PROCEDURE NOTE DATE OF PROCEDURE: 09/09/2024 PERFORMING PHYSICIAN: Dr. Felipe Fatima OPERATOR VACUUM: YOSELYN CONSENT: Patient NAME OF THE PROCEDURE: [...] any shortness of breath, chest pain, fatigue. [id number] at least 2 for hypertension, DM 2, takes Xarelto 20 mg daily. He was seen by Tenzin PRATT and at that time 14-day event [...] patient converted to SR. (more content not included)...[facility]11-21-2024 NoteAirway Date/Time: 09/09/2024 12:58 PM Urgency: elective Airway not difficult General Information and Staff Patient location during procedure: OR Anesthesiologist: Wil Cook MD Resident/SHREDDED FILLER MACHINE WRAPPER LAYER/CAA: Zheng Reaves MD Performed: resident/SHREDDED FILLER MACHINE WRAPPER LAYER/CAA Indications and Patient Condition Indications for airway [...] approach: 1 Number of other approaches attempted: 0[facility] 09-09-2024 NotePatient: Salomón Rush Procedure Information Date/Time: 09/09/24 1200 Procedure: Ablation a-fib paroxysmal - pc approved Location: [facility] SQE 1 / [facility] (Cath) Providers: Felipe Fatima [...] products. Plan discussed with resident. Additional Equipment RequestsCos[facility]10-08-2024 Note [facility] Electrophysiology Consult Note Reason for [...] any shortness of breath, chest pain, fatigue. [id number] at least 2 for hypertension, DM 2, takes Xarelto 20 mg daily he was seen by Tenzin PRATT and at that time 14-day event [...] no rales, no (more content not included)... [facility]07-03-2024 [id number]= 2 points- HTN and DM Continue xarelto anticoagulation - denied any bleeding tendencies Rate [facility] Note Currently pt is doing well post Cardioversion Currently in A fib and rate controlled - Dr Fatima notified and d/w pt about possible A fib ablationUnCity Hospital07-03-2024 NotePatient here for follow up cardioversion performed on 03/24/[address] Fatima. Still has intermittent palpitations but says they are less frequent since cardioversion. He continues to deny chest pain, SOB, lightheadedness/syncope, and bleeding on Xarelto. Review of Systems Cardiovascular: Positive for palpitations (less frequent). Musculoskeletal: Positive for arthritis, back pain and joint pain. All other systems reviewed and are negative.[facility] 04-21-2024 NoteUTP CARDIOLOGY PROGRESS NOTE HPI: Salomón [...] any shortness of breath, chest pain, fatigue. [id number] at least 2 for hypertension, DM 2, takes Xarelto 20 mg daily he was seen by Tenzin PRATT and at that time 14-day event [...] 100 QT Interval 406 QTC CALCULATION(BAZETT) 447 R[place] 49 T Wave [place] 38 Impression Atrial fibrillation Abnormal ECG No previous ECGs available Echo: 09/2023 tte Assessment/Plan: History (more content not included)...[facility] 03-24-2024 NoteDIRECT CARDIOVERSION PROCEDURE NOTE Date: 03/24/2024. [...] any shortness of breath, chest pain, fatigue. [id number] at least 2 for hypertension, DM 2, takes Xarelto 20 mg daily. He was seen by Tenzin PRATT and at that time 14-day event [...] and consider ablation. Felipe Fatima MD Cardiac ElectrophysiologyCoshocton Regional Medical Center06-05-2024 Note Patient: Salomón Rush Procedure Information Date/Time: 03/24/2430 Procedure: Cardioversion - TO BE DONE IN March Location: [facility] SQE HOLDING ROOM / [facility] (Cath) Providers: Felipe Fatima MD Clinical information reviewed: Tobacco Allergies Meds Med Hx Surg Hx Fam Hx Soc Hx Physical Exam Airway Mallampati: II TM distance: >3 FB Neck ROM: full Cardiovascular Dental Pulmonary Abdominal Anesthesia Plan ASA 2 CSE Anesthetic plan and risks discussed with patient. Use of blood products discussed with patient who. Additional [facility]Un[facility]01-19-2024 Evaluation note* Encounter Date Diagnosis Assessment Notes [...] are maintaining regular scheduled appts with their completions manager. No bleeding complications Oct, Primary hypertension (ICD-10 - I10) This patient is instructed to consume a healthy, low-fat, low-salt diet. They are also encouraged to continue exercise to achieve/maintain a normal BMI. Oct, Obstructive sleep apnea (ICD-10 - G47.33) This patient is aware of the benefits associated with ELENITA: With continued use, the patient reduces the risk for NH, CVA, HTN, cardiac dysrhythmias and sudden cardiac [...] risk for cerebrovascular and cardiovascular disease. Oct, senior care (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 (ICD-10 - Z79.4) Oct, Screening PSA (prostate specific antigen) (ICD-10 - Z12.5) Yearly JACE and PSA [facility] Other 12-30-2023 Evaluation note* Encounter Date Diagnosis Assessment Notes Treatment Notes Treatment Clinical Notes Sep, Longstanding persistent atrial fibrillation (ICD-10 - I48.11) Echo: 09/2023 LVEF low normal, mod diastolic dysfunction, AV sclerosis, moderate MR. RVSP normal. [facility] Other 12-21-2023 Evaluation note* Encounter Date Diagnosis Assessment Notes Treatment Notes Treatment Clinical Notes Sep, Chronic atrial fibrillation (ICD-10 - I48.20) [facility] Other 10-06-2023 Evaluation note* Encounter Date Diagnosis [...] use, the patient reduces the risk for NH, CVA, HTN, cardiac dysrhythmias and sudden cardiac [...] or develop radicular symptoms, notify office Jul, 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 editor (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 (ICD-10 - Z79.4) [facility] Other 10-02-2023 Evaluation note* Encounter Date Diagnosis Assessment Notes Treatment Notes Treatment Clinical Notes Jul, Type 2 diabetes mellitus with hyperglycemia (ICD-10 - E11.65) [facility] Other 09-22-2023 Evaluation note* Encounter Date Diagnosis Assessment Notes Treatment Notes Treatment Clinical Notes Jun, Type 2 diabetes mellitus with hyperglycemia (ICD-10 - E11.65) [facility] Other 08-17-2023 Evaluation note* Encounter Date Diagnosis [...] understanding and is agreeable with treatment plan [facility] Other 08-17-2023 Evaluation note* Encounter Date Diagnosis Assessment Notes Treatment Notes Treatment Clinical Notes May, Left hip pain (ICD-10 - M25.552) [facility] Other 05-02-2023 Evaluation note* Encounter Date Diagnosis Assessment Notes Treatment Notes Treatment Clinical Notes February, Type 2 diabetes mellitus with hyperglycemia, unspecified whether usp insulin use (ICD-10 - E11.65) [facility] Other 04-28-2023 Evaluation note* Encounter Date Diagnosis [...] treatment plan. Patient left in stable condition. [facility] Other 04-12-2023 Evaluation note* Encounter Date Diagnosis Assessment Notes Treatment Notes Treatment Clinical Notes Jan, Type 2 diabetes mellitus with hyperglycemia, unspecified whether usp insulin use (ICD-10 - E11.65) [facility] Other 04-03-2023 Evaluation note* Encounter Date Diagnosis Assessment Notes Treatment Notes Treatment Clinical Notes Jan, Type 2 diabetes mellitus with hyperglycemia (ICD-10 - E11.65) [facility] Other 03-23-2023 Evaluation note* Encounter Date Diagnosis [...] use, the patient reduces the risk for NH, CVA, HTN, cardiac dysrhythmias and sudden cardiac [...] are reviewed at the office visit. Dec, 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 editor (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 (ICD-10 - Z79.4) [...] Monitor for rash of HZV Stretching exercises [facility] Other 03-07-2023 Evaluation note* Encounter Date Diagnosis Assessment Notes Treatment Notes Treatment Clinical Notes Dec, Type 2 diabetes mellitus with hyperglycemia, without long-term current use of insulin (ICD-10 - E11.65) [facility] Other 02-06-2023 Evaluation note* Encounter Date Diagnosis Assessment Notes Treatment Notes Treatment Clinical Notes Nov, Type 2 diabetes mellitus with hyperglycemia, without long-term current use of insulin (ICD-10 - E11.65) [facility] Other 01-13-2023 Evaluation note* Encounter Date Diagnosis [...] use, the patient reduces the risk for NH, CVA, HTN, cardiac dysrhythmias and sudden cardiac [...] 2 diabetes mellitus with hyperglycemia, unspecified whether political research scientist insulin use (ICD-10 - E11.65) This patient [...] use, the patient reduces the risk for NH, CVA, HTN, cardiac dysrhythmias and sudden cardiac [...] Oct, Annual physical exam (ICD-10 - Z00.00) [facility] Other 12-19-[address] [facility]* Encounter Date Diagnosis Assessment [...] treatment plan. Patient left in stable condition [facility] Other 10-24-2021 Evaluation note* Encounter Date Diagnosis [...] care instructions given in writting by [facility] At Home document [facility] Other Evaluation noteNo assessment information available [facility] Work Phone: Evaluation noteNo InformationNorth [employer] Other evaluation note* Diagnosis Onset Date Resolution Status Atrial fibrillation acute Chronic venous insufficiency of lower extremity acute Hypercholesterolemia acute Hypertension acute ELENITA (obstructive sleep apnea) acute Type 2 diabetes mellitus with hyperglycemia acute [facility] Work Phone: Evaluation note* Diagnosis Onset Date Resolution Status Anemia acute Atrial fibrillation acute Chronic venous insufficiency of lower extremity acute Hypercholesterolemia acute Hypertension acute Obesity acute ELENITA (obstructive sleep apnea) acute Type 2 diabetes mellitus with hyperglycemia acute [facility] Work Phone: History and physical note Author Deon Greene [facility] October 07, 2022 9:27am Note Date/Time October 07, 2022 9:27am [facility] [address] [place] [address] Gastroenterology H&P Signed Patient: Salomón Rush MR#: [id number] : 1960 Acct:[id number] Age/Sex: 61 / M Adm Date: 2 [...] <Electronically signed by Deon Greene MD> 10/07/22926 [facility] Work Phone: Hisvpzg general Narrative - Reported* Type Description Date Medical History hypertension Medical History Diabetes Medical History a. fib Surgical History rotator cuff repair Surgical History cataract Surgical History bilateral knee arthroscopy [facility] Other Hisphtn general Narrative - Reported* Type Description Date Medical History Tubulovillous adenoma of colon Medical History Anemia Medical History Zoster with other complications Medical History Type 2 diabetes lisa itus with hyperglycemia, unspecified whether political research scientist insulin use Medical History 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 editor current use of insulin Medical History Acute [...] DECOMPRESSION 2002 Hospitalization History SEE SURGICAL HX [facility] Other Hospital Discharge instructions Additional Instructions DISCHARGE [...] Follow up with PCP. - Office number [phone].[facility] Work Phone: Reason for referral (narrative)* Reason *FU 11/28 Referral for persistent atrial fibrillation. Diagnosis 1 Chronic atrial fibri llation (I48.20) Referral Organization [facility] Referring Provider First Name Delonte Referring Provider Last Name Geovani Referring Provider Specialty Internal Me kalani Referred Organization [facility] Referred Provider Felipe Fatima Referred Address [address] [place], [place],[address] Referred Provider Specialty Cardiology Referral Priority Routine [...] faxed Clinical Notes Include recent Echo f: [phone] [facility] Gran[facility] Other Summary Purpose Family History No Family [...] Date Amb Documentation September 14, 2024 8:46am [facility]:Cardiac September 20, 2024 2 :22pm Wellness-HIGH RISK [...] Date Amb Documentation September 14, 2024 8:46am [facility]:Cardiac September 20, 2024 2 :22pm Wellness-HIGH RISK [...] koenig 2024 8:49am Chief Complaint Admit Date [facility]:Cardiac September 20, 2024 2 :22pm Wellness-HIGH RISK [...] 8:49am Type 2 diabetes mellitus with hyperglyce [facility] November 12, 2024 8:49am Welcome to Medicare preventive visit [facility] 2024 8:49am B12 deficiency November 26, 2024 8 :50am Obesity November 26, 2024 8 :50am Decreased hearing of both ears November 26, 2024 8:50am Impacted cerumen of both ears November 262024 8:50am Chief Complaint Admit Date Wellness-HIGH RISK November 12, 2024 8 :49am Ear Cleaning-HIGH RISK November 26 8:50am Referral Order December 15, 2024 6:30pm URI-HIGH RISK January 07, 2025 9:3 6am Reason for Visit Admit Date Atrial fibrillation November 12, 2024 8 :49am Chronic kidney disease November 12 8:49am Hypertension November 12, 2024 8 :49am Postoperative hemorrhage inv olving circulatory system following cardiac November 12, 2024 8:49am Screening PSA (prostate specific antigen ) November 12, 2024 8:49am Type 2 diabetes mellitus with hyperglyce [facility] November 12, 2024 8:49am Welcome to Medicare preventive visit [facility] 2024 8:49am B12 deficiency November 26, 2024 8 :50am Obesity November 26, 2024 8 :50am Decreased hearing of both ears November 26, 2024 8:50am Impacted cerumen of both ears November 262024 8:50am Additional Source Comments REASON FOR VISIT (unrecogniz ed section and content) #15 BLACK JEEP, HIARRHEA, NA USEA, NASAL CONGESTION [id number] JEEP, COUGH, SORE THROAT, POSITIVE HOME TESTNo InformationWELLNESSNo InformationDifferent MedicationOzempic increasePossible Pulled MusclerefillNo InformationOzempicchest/head coldmed refillHRHRLeft hip painWants on TodayNo InformationOzempicNo Information3 month Follow upPrescription ReminderEKG resultsNo InformationWELLNESSWELLNESS (unrecognized sect ion and content) No Status Records FoundNo Status Records FoundNo Status Records FoundNo Status Records FoundNo Status Records Found INFORMATION SOURCE (unrecogn ized section and content) DATE CREATED AUTHOR 07/22/2022 [facility] DATE CREATED AUTHOR AUTHOR'S ORGANIZ ATION 02/21/2023 [facility] DATE CREATED AUTHOR AUTHOR'S ORGANIZ ATION 10/30/2023 [facility] DATE CREATED AUTHOR AUTHOR'S ORGANIZ ATION 12/30/2024 [facility] EPIC DATE CREATED AUTHOR AUTHOR'S ORGANIZ ATION 01/29/2025 [facility] Care Teams (unrecognized sec tion and [...] Tejeda , DO Primary Care Provider Active Start: September 14, 2024 Marian Roa CMA Attending Provider Active Start: September 14, 2024 [...] Attending Provider Active Start: December 15, 2024 Team Status: Active Member Role Status Dates Delonte Tejeda , DO Primary Care Provider Active Start: January 05, 2025 Kina Mcqueen Jr, MD Attending Provider Active Start: January 05, 2025 Team Status: Inactive Member Role Status Dates Delonte Tejeda , DO Primary Care Provide r, Attending Provider Active Start: January 07, 2025 End: January 07, 2025 Goals (unrecognized section and content) Goals may [...] BE BASED ON THE PRIMARY CLINICAL RECORDS. [facility] [employer] provides no warranty or guarantee of the accuracy or completeness of information in this document.
== END 2025-02-03 08:50 | disposition home or self-care (01) ==
LOC: CARD 08:50
PROVIDERS: PCP Internal Medicine
DX: R60.0 Localized edema (principal); I83.93 Asymptomatic varicose veins of bilateral lower extremities; R09.89 Other specified symptoms and signs involving the circulatory and respiratory systems; I73.9 Peripheral vascular disease, unspecified
CPT/HCPCS: 93923

== ENCOUNTER 2025-02-24 09:00 | Outpatient (OUT) | payer MEDICARE, SELFPAY | END 2025-02-24 09:01 | disposition home or self-care (01) | LOC: US 09:00 | PROVIDERS: PCP Internal Medicine; Visit Provider Internal Medicine Cardiovascular Disease | DX: R60.0 Localized edema (principal); R60.9 Edema, unspecified; T88.8XXA Other specified complications of surgical and medical care, not elsewhere classified, initial encounter | CPT/HCPCS: 93926; 93971 ==

== ENCOUNTER 2025-03-07 14:56 | Outpatient (OUT) | payer MEDICARE, SELFPAY ==
[2025-03-07 15:21] LABS: Basophils Percent Auto 0.4 % (0.2-2.0); Eosinophils Absolute Auto 0.2 10^3/uL (0.0-0.7); Eosinophils Percent Auto 1.9 % (0.9-7.0); Hematocrit 33.6 % (42.0-54.0); Hemoglobin 11.8 g/dL (14.0-18.0); Immature Granulocytes Abs Auto 0.02 10^3/uL (0.00-0.03); Immature Granulocytes Pct Auto 0.2 % (0.0-0.5); Lymphocytes Absolute Auto 1.2 10^3/uL (1.2-3.8); Lymphocytes Percent Auto 14.8 % (20.5-60.0); Mean Corpuscular HGB Conc 35.1 g/dL (29.9-35.2); Mean Corpuscular Hemoglobin 35.3 pg (25.9-34.0); Mean Corpuscular Volume 100.6 fL (80.0-94.0); Mean Platelet Volume 10.5 fL (9.5-13.5); Monocytes Absolute Auto 0.7 10^3/uL (0.3-0.8); Monocytes Percent Auto 8.1 % (1.7-12.0); Neutrophils Absolute Auto 6.1 10^3/uL (1.4-6.5); Neutrophils Percent Auto 74.6 % (43.0-75.0); Platelet Count 174 10^3/uL (150-450); Red Blood Count 3.34 10^6/uL (4.70-6.10); Red Cell Distribution Width 12.9 % (11.0-15.0); White Blood Count 8.2 10^3/uL (4.0-11.0)
[2025-03-07 15:28] LABS: Microalbum Creatinine Ratio Ur 17.4 mg/g (0.0-29.9); Microalbumin Urine Random 1.3 mg/dL (<=30.0)
[2025-03-07 15:31] LABS: Estimated Average Glucose 117 mg/dL; Glycohemoglobin A1C 5.7 % (4.5-6.2)
[2025-03-07 15:50] LABS: Anion Gap 12.5; BUN Creatinine Ratio 24.5; Calcium 9.1 mg/dL (8.5-10.1); Carbon Dioxide 26.2 mmol/L (21.0-32.0); Chloride 103 mmol/L (98-107); Estimated GFR (African America 52 (>=60 mL/min/1.73m^2); Estimated GFR (Non-African Ame 43 (>=60 mL/min/1.73m^2); Glucose 100 mg/dL (74-106); Potassium 4.7 mmol/L (3.5-5.1); Sodium 137 mmol/L (136-145)
[2025-03-07 16:19] LABS: Percent Iron Saturation 43.8 %
== END 2025-03-07 14:57 | disposition home or self-care (01) ==
LOC: LAB 14:57
PROVIDERS: PCP Internal Medicine; Visit Provider Internal Medicine
DX: D62 Acute posthemorrhagic anemia (principal); N18.9 Chronic kidney disease, unspecified; E11.65 Type 2 diabetes mellitus with hyperglycemia
CPT/HCPCS: 36415; 80048; 82043; 82570; 82728; 83036; 83540; 83550; 85025